=== PATIENT | male | born 1960 | race American Indian/Alaskan Native ===

== ENCOUNTER 2024-04-26 17:43 | Emergency (ER) | payer MEDICAID, SELFPAY ==
--- NOTE | 2024-04-26 18:08 | XR_ITS ---
Examination: PA lateral chest 2 views Technique: Upright PA lateral chest 2 views Exam date and time: April 26, 2024 1819 hrs. Comparison April 01, 2024 Indications: Onset difficulty breathing chest pain today. Findings: Mild CHF Moderate enlargement cardiac contour Prominent vascular congestion including central vascular engorgement. Early septal edema at the lung bases and perihilar regions Impression: Mild CHF
--- NOTE | 2024-04-26 18:08 | EKG_ITS ---
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) Order Number: [id number] Reading MD: Roberto Pathak ([facility]) Measurements Intervals [place] Rate: 87 P: 34 [place]: 227 QRS: 12 QRSD: 125 T: 87 QT: 423 QTc: 511 Interpretive Statements SINUS RHYTHM WITH FIRST DEGREE AV BLOCK WITH FREQUENT VENTRICULAR PREMATURE COMPLEXES LEFT ATRIAL ENLARGEMENT [-0.15mV P WAVE IN V1/V2] INDETERMINATE AXIS LATERAL MYOCARDIAL INFARCTION , OF INDETERMINATE AGE [40+ ms Q WAVE AND/OR ST/T ABNORMALITY IN I/aVL/V5/V6] Compared to ECG 03/23/2024 09:59:58 Ventricular premature complex(es) now present First degree AV block now present Myocardial infarct finding still present /store/S0/[id number]/ecg/[id number].pdf
--- NOTE | 2024-04-26 18:09 | PD.EDRME ---
Rapid Medical Screening Exam RME Arrival date/time: 04/26/24 17:43 64-year-old male with past medical history of CAD presents to the emergency department complaining of shortness of breath that started today. Chief Complaint: Urogenital-Male Time Seen by Provider: 04/26/24 18:02 Vital signs reviewed by provider: Yes
[2024-04-26 18:17] VITALS: BP 158/104; PULSE 81; RESP 19; TEMP 36.7; O2SAT 97; BMI 28.5
[2024-04-26 19:36] LABS: Collection Type, Urine Clean Catch
[2024-04-26 19:38] LABS: Basophils # (Auto) 0.1 Thou/mm3 (0.0-0.2); Basophils % (Auto) 1 % (0-2.5); Eosinophils # (Auto) 0.1 Thou/mm3 (0.0-0.5); Eosinophils % (Auto) 2 % (0-10); Hematocrit 38.7 % (41.0-53.0); Hemoglobin 12.7 g/dL (13.5-16.0); Immature Granulocytes % (Auto) 0 % (0-0); Immature Granulocytes Auto 0.02 Thou/mm3 (0.00-0.00); Lymphocytes # (Auto) 1.1 Thou/mm3 (1.0-4.8); Lymphocytes % (Auto) 16 % (10-50); Mean Corpuscular HGB Conc 32.8 g/dl (31.0-37.0); Mean Corpuscular Hemoglobin 28.9 pg (25.0-35.0); Mean Corpuscular Volume 88 fL (80-100); Monocytes % (Auto) 15 % (0-12); Neutrophils # (Auto) 4.7 Thou/mm3 (1.8-7.7); Neutrophils % (Auto) 66 % (37-80); Nucleated Red Blood Cell # 0.02 Thou/mm3 (0.00-0.00); Nucleated Red Blood Cell % 0 /100 WBC (0); Platelet Count 145 Thou/mm3 (140-440); RDW Standard Deviation 56.7 fL (35.1-43.9)
[2024-04-26 19:42] LABS: Bilirubin,Urine Negative (Negative); Blood,Urine Negative (Negative); Clarity,Urine Clear (Clear/Hazy); Color,Urine Yellow (Lt Yel-Yel); Culture Indicated,Urine Not Indicated; Glucose, Urine Negative (Negative); Ketones,Urine Negative (Negative); Leukocyte Esterase,Urine Positive (Negative); Nitrite,Urine Negative (Negative); PH,Urine 5.5 (5.0-7.0); Protein,Urine 1+ (Neg - Trace); RBC,Urine 2 /hpf (0-3); Specific Gravity,Urine 1.028 (1.001-1.035); Squamous Epithelial Cell,Urine 1 /hpf (0-5); WBC,Urine 3 /hpf (0-5)
[2024-04-26 19:50] LABS: Amphetamine/Methamp Scrn,U Positive (Negative); Barbiturate Screen,Urine Negative (Negative); Benzodiazepines Screen,Urine Negative (Negative); Benzoylecgonine Screen, Ur Negative (Negative); Fentanyl Screen,Urine Negative (Negative); Opiate Screen,Urine Negative (Negative); THC Screen,Urine Negative (Negative)
[2024-04-26 19:57] LABS: INR 1.4 (0.9-1.3); Partial Thromboplastin Time 28.5 Seconds (22.0-36.0); Prothrombin Time 14.9 Seconds (9.0-12.2)
[2024-04-26 20:00] LABS: B-Type Natriuretic Peptide 2420 pg/mL (0-100)
[2024-04-26 20:03] LABS: Alanine Aminotransferase 41 U/L (10-49); Albumin, Serum 3.8 gm/dL (3.4-4.8); Albumin/Globulin Ratio 1.2 (1.2-2.2); Alkaline Phosphatase 144 U/L (46-116); Anion Gap 10 (7-16); Aspartate Amino Transferase 57 U/L (0-34); BUN/Creatinine Ratio 18 Ratio (12-20); Bilirubin,Total 1.7 mg/dL (0.3-1.2); Blood Urea Nitrogen 28 mg/dL (9-23); Calcium 8.8 mg/dL (8.3-10.6); Carbon Dioxide 19.3 mMol/L (20.0-31.0); Chloride 110 mMol/L (98-107); Creatinine (Component) 1.6 mg/dL (0.6-1.3); Estimated Creatinine Clearance 48.6 mL/min (>60); Globulin 3.2 gm/dL (2.3-3.5); Glucose 106 mg/dL (74-106); Osmolality,Calculated 283 (275-295); Potassium 3.9 mMol/L (3.4-5.1); Sodium 139 mMol/L (136-145); eGFR 48 See Note
[2024-04-26 20:06] LABS: Troponin I 0.364 ng/mL (0.0-0.045)
[2024-04-26 20:14] LABS: LDH (Lactate Dehydrogenase) 430 U/L (120-246)
[2024-04-26 20:58] VITALS: BP 147/85; PULSE 62; RESP 18; TEMP 36.8; O2SAT 98
--- NOTE | 2024-04-26 22:45 | EDNOTE_ITS ---
ED General RME/HPI General Chief complaint: Urogenital-Male Stated complaint: I GOT KIDNEY STONES, HERNIA, AND HEART PROBLEMS Time Seen by Provider: 04/26/24 18:02 Arrival date/time: 04/26/24 17:43 RME / HPI RME / HPI narrative: 04/26/24 17:43 64-year-old male with past medical history of CAD presents to the emergency department complaining of shortness of breath that started today. ----- Dr. Zaman?s Main ED Evaluation: 64yo male with pmhx CAD, CHF presents to the ED for a chief complaint of shortness of breath. Patient states he has a heart tumor and is bothering me , reporting he's been feeling short of breath all day today. He states he has not been taking his Lasix for the last 2 days. Patient is homeless. Admits to using methamphetamines. Denies any chest pain, fever, chills or any other associated symptoms. No known allergies. Related Data Home Medications ?Medication ?Instructions ?Recorded ?Confirmed loratadine 10 mg tablet 10 mg PO BID 09/26/23 03/03/24 Previous Rx's ?Medication ?Instructions ?Recorded apixaban 5 mg tablet (Eliquis) 5 mg PO BID #30 tabs 03/03/24 aspirin 81 mg tablet,delayed 81 mg PO QDAY #30 tabs 03/03/24 release atorvastatin 40 mg tablet 40 mg PO QPM #30 tabs 03/03/24 cephalexin 250 mg capsule 500 mg (2 x 250 mg) PO QID #28 caps 03/03/24 doxycycline hyclate 100 mg tablet 100 mg PO BID #60 tabs 03/03/24 furosemide 40 mg tablet 40 mg PO TID 30 days #90 tabs 03/03/24 apixaban 5 mg tablet (Eliquis) 5 mg PO BID #60 tabs 04/01/24 furosemide 40 mg tablet (Lasix) 40 mg PO QDAY #30 tabs 04/01/24 sacubitril 24 mg-valsartan 26 mg 1 tab PO BID #60 tabs 04/01/24 tablet Allergies Allergy/AdvReac Type Severity Reaction Status Date / Time No Known Allergies Allergy Verified 04/26/24 17:49 Review of Systems Review of Systems Systems Reviewed: All systems reviewed, normal except as documented Narrative Review of Systems: Gen: No fever, no chills, no weight loss EYES: No discharge, no visual changes, no pain HEENT: No ear pain, no congestion, no sore throat PULM: + shortness of breath, no cough, no congestion CV: No chest pain, no dyspnea on exertion, no palpitations GI: No nausea, no vomiting, no diarrhea, no pain, no constipation : No frequency, no urgency, no dysuria Musc/skel: No joint pain, no back pain Skin: No rash. Warm and dry. Psyc: No hallucinations, no depression Heme/Lymph: No easy bleeding or bruising tendencies Neuro: No weakness, no headache ED Exam Narrative Physical exam: GENERAL APPEARANCE: AxOx4, generally well-appearing, no acute distress. HEENT: NC, AT. MMM. EOMI, clear conjunctiva, oropharynx clear. NECK: Supple without lymphadenopathy. No stiffness or restricted ROM. HEART: Normal rate and regular rhythm, normal S1/S1, no m/r/g LUNGS: CTAB, moving air well. No crackles or wheezes are heard. ABDOMEN: Soft, nontender, nondistended with good bowel sounds heard. BACK: No midline C/T/L spine pain or deformity, No CVAT, no obvious deformity. EXTREMITIES: Without cyanosis, clubbing or edema. MUSCULOSKELETAL: FROM of all major joints, no chest tenderness NEUROLOGICAL: Grossly nonfocal. Alert and oriented, moving all 4 extremities. CN not formally tested but appear grossly intact. Observed to ambulate with normal gait. Skin: Warm and dry without any rash. Course Course Course Narrative: CXR is ordered for determining the etiology of chest pain. Quality Measures none Orders Category Date Time Status EKG (ED ONLY) *Do not use* NOW Care 04/26/24 18:08 Completed EKG (ED Only) Stat Exams 04/26/24 18:08 Draft XR chest 2V Stat Exams 04/26/24 18:08 Completed B-Type Natriuretic Peptide Stat Lab 04/26/24 18:53 Completed CBC Stat Lab 04/26/24 18:53 Completed Comprehensive Metabolic Panel Stat Lab 04/26/24 18:53 Completed Drug Screen,Urine Stat Lab 04/26/24 19:31 Completed LDH (Lactate Dehydrogenase) Stat Lab 04/26/24 18:53 Completed Magnesium Stat Lab 04/26/24 18:53 Completed Partial Thromboplastin Time Stat Lab 04/26/24 18:53 Completed Prothrombin Time with INR Stat Lab 04/26/24 18:53 Completed Troponin I Stat Lab 04/26/24 18:53 Completed Urinalysis, C/S if Indicated Stat Lab 04/26/24 19:31 Completed Furosemide [Lasix] Med 04/26/24 22:46 Discontinued 40 mg PO X1 ONE Vital Signs Vital signs: Vital Signs Temperature 98.0 F 04/26/24 18:17 Pulse Rate 81 04/26/24 18:17 Respiratory Rate 19 04/26/24 18:17 Blood Pressure 158/104 H 04/26/24 18:17 Pulse Oximetry (%) 97 04/26/24 18:17 Oxygen Delivery Method Room Air 04/26/24 18:17 [facility] Patient data External records reviewed:: [facility] previous records (Per chart review, patient was seen here 04/01/24 for CHF.) Clinical information provided by:: patient Social determinants that could affect healthcare access:: substance use (uses methamphetamines) Patient has the following chronic illnesses:: EF of 15%, acute on chronic CHF, noncompliant with his Lasix, hypertension How is presenting disease/condition affected by chronic disease/condition?: e xacerbated by Evaluation data The following diagnostics were reviewed and interpreted by me:: lab results, radiology exam(s) and EKG tracing(s) Lab and/or radiology exams considered but not ordered:: none Interpretation Summary: [place] [facility] Report Signed Patient: NELDA LEON. Record#: [id number] Birthdate: 1960 Age/Sex: 64 / M Location: [facility] Attending Dr: Ordering Physician: Roberto Zaman (FNP) Date of Service: 04/26/24 Procedure(s): XR chest 2V Accession Number(s): [id number] cc: Aneesh Acuna MD; Roberto Zaman (FNP)~ Examination: PA lateral chest 2 views Technique: Upright PA lateral chest 2 views Exam date and time: April 26, 2024 1819 hrs. Comparison April 01, 2024 Indications: Onset difficulty breathing chest pain today. Findings: Mild CHF Moderate enlargement cardiac contour Prominent vascular congestion including central vascular engorgement. Early septal edema at the lung bases and perihilar regions Impression: Mild CHF Dictated By: Aneesh Acuna MD Signed By: <Electronically signed by Aneesh Acuna MD in OV> 04/26/241912 EKG done at 1816, NSR, rate of 87, normal intervals, normal axis, nonspecific ST changes, frequent PVCs, no STEMI, unchanged from previous EKG done on 04/01/24 Medications Medications considered but not ordered:: none Medication administrations:: Medication Administration History Discontinued Medications Furosemide (Furosemide 40 Mg Tablet) 40 mg PO X1 ONE Stop: 04/26/24 22:47 see above Consultations Consultation(s) initiated? (list below): No Diagnosis Differential Diagnosis ED Complaint MDM: CHF exacerbation, pneumonia, pleural effusions, dehydration Most likely diagnosis given after review of the tests above:: see below Admission Indicated Admission indicated?: not indicated Explain why admission is indicated or not indicated:: Patient is stable for outpatient management. Admission Request Was there a request for admission?: No Disposition Plan Disposition Plan: Discharge Discharge Attestation Discharge Attestation: The patient and all family members were given an opportunity to ask questions and understood the discharge instructions. Discharge instructions specifically effects, indications for sooner follow up or return to the emergency department, and the expected course of current diagnosis. Patient condition: Stable Medical Decision Making MDM Narrative MDM Narrative: Scribe Attestation: 04/26/24 - Angela Parker, scribing for and in the presence of Dr. Zaman. Differential Diagnosis Differential Diagnosis: CHF exacerbation, pneumonia, pleural effusions, dehydration Lab Data 04/26/24 18:53 04/26/24 18:53 Labs: Lab Results 04/26/24 04/26/24 Range/Units 18:53 19:31 WBC 7.0 (3.8-10.6) Thou/mm3 RBC 4.40 L (4.50-5.90) Miln/mm3 Hgb 12.7 L (13.5-16.0) g/dL Hct 38.7 L (41.0-53.0) % MCV 88 (80-100) fL MCH 28.9 (25.0-35.0) pg MCHC 32.8 (31.0-37.0) g/dl RDW Std Deviation 56.7 H (35.1-43.9) fL Plt Count 145 (140-440) Thou/mm3 Neut % (Auto) 66 (37-80) % Lymph % (Auto) 16 (10-50) % [place] % (Auto) 15 H (0-12) % Eos % (Auto) 2 (0-10) % Baso % (Auto) 1 (0-2.5) % Neut # (Auto) 4.7 (1.8-7.7) Thou/mm3 Lymph # (Auto) 1.1 (1.0-4.8) Thou/mm3 [place] # (Auto) 1.0 H (0.0-0.8) Thou/mm3 Eos # (Auto) 0.1 (0.0-0.5) Thou/mm3 Baso # (Auto) 0.1 (0.0-0.2) Thou/mm3 Immature Gran # (Auto) 0.02 H (0.00-0.00) Thou/mm3 Absolute Nucleated RBC 0.02 H (0.00-0.00) Thou/mm3 Immature Gran % 0 (0-0) % Nucleated RBC % 0 (0) /100 WBC PT 14.9 H (9.0-12.2) Seconds INR 1.4 H (0.9-1.3) APTT 28.5 (22.0-36.0) Seconds Sodium 139 (136-145) mMol/L Potassium 3.9 (3.4-5.1) mMol/L Chloride 110 H (98-107) mMol/L Carbon Dioxide 19.3 L (20.0-31.0) mMol/L Anion Gap 10 (7-16) BUN 28 H (9-23) mg/dL Creatinine 1.6 H (0.6-1.3) mg/dL Estim Creat Clear Calc 48.6 L (>60) mL/min eGFR 48 L (60 - ) See Note BUN/Creatinine Ratio 18 (12-20) Ratio Glucose 106 (74-106) mg/dL Calculated Osmolality 283 (275-295) Calcium 8.8 (8.3-10.6) mg/dL Corrected Calcium 9.0 (8.5-10.1) mg/dL Magnesium 2.0 (1.6-2.6) mg/dL Total Bilirubin 1.7 H (0.3-1.2) mg/dL AST 57 H (0-34) U/L ALT 41 (10-49) U/L Alkaline Phosphatase 144 H (46-116) U/L Lactate Dehydrogenase 430 H (120-246) U/L Troponin I 0.364 H* (0.0-0.045) ng/mL B-Natriuretic Peptide 2420 H* (0-100) pg/mL Total Protein 7.0 (5.7-8.2) gm/dL Albumin 3.8 (3.4-4.8) gm/dL Globulin 3.2 (2.3-3.5) gm/dL Albumin/Globulin Ratio 1.2 (1.2-2.2) Ur Collection Type Clean Catch Urine Color Yellow (Lt Yel-Yel) Urine Clarity Clear (Clear/Hazy) Urine pH 5.5 (5.0-7.0) Ur Specific [place] 1.028 (1.001-1.035) Urine Protein 1+ A (Neg - Trace) Urine Glucose (UA) Negative (Negative) Urine Ketones Negative (Negative) Urine Blood Negative (Negative) Urine Nitrite Negative (Negative) Urine Bilirubin Negative (Negative) Urine Urobilinogen (Auto) 3.0 (0.0-1.0) mg/dL Ur Leukocyte Esterase Positive (Negative) Urine RBC 2 (0-3) /hpf Urine WBC 3 (0-5) /hpf Ur Squamous Epith Cells 1 (0-5) /hpf Urine Bacteria None (None) Ur Culture Indicated? Not Indicated Urine Opiates Screen Negative (Negative) Urine Fentanyl Screen Negative (Negative) Ur Barbiturates Screen Negative (Negative) U Amphetamin/Meth Scrn Positive A (Negative) U Benzodiazepines Scrn Negative (Negative) U Cocaine Metab Screen Negative (Negative) U Marijuana (THC) Screen Negative (Negative) Discharge Plan Plan Patient Disposition: HOME (Self Care) Prescriptions/Referrals Prescriptions/Med Rec: No Action cephalexin 250 mg capsule 500 mg PO QID Qty: 28 0RF furosemide 40 mg tablet 40 mg PO TID 30 Days Qty: 90 1RF Rx Instructions: The dose has been changed to three times daily, please refill doxycycline hyclate 100 mg tablet 100 mg PO BID Qty: 60 3RF Eliquis 5 mg tablet 5 mg PO BID Qty: 30 1RF aspirin 81 mg tablet,delayed release (DR/EC) 81 mg PO QDAY Qty: 30 0RF atorvastatin 40 mg tablet 40 mg PO QPM Qty: 30 0RF loratadine 10 mg tablet 10 mg PO BID Patient Comments: TAKE 1 TABLET BY MOUTH EVERY DAY FOR 30 DAYS furosemide [Lasix] 40 mg tablet 40 mg PO QDAY Qty: 30 0RF Eliquis 5 mg tablet 5 mg PO BID Qty: 60 0RF sacubitril-valsartan 24-26 mg tablet 1 tab PO BID Qty: 60 0RF Referrals: No Primary/Family,Physician [Primary Care Provider] - In 1 week Problem List Clinical Impression: Acute exacerbation of congestive heart failure, Methamphetamine abuse Patient/Caregiver Discharge Instructions Education Materials: ED Drug Abuse, ED Heart Disease Education Additional Instructions: Is important to take your Lasix on a daily basis. Stop taking methamphetamines, you can follow-up with your primary care doctor and or [facility] if you feel ready for drug and/or alcohol rehabilitation programs. You can return to the emergency department if symptoms worsen or if you notice any new, concerning issues. Print Language: [place] Stand Alone Forms: Vera Award Info., Patient Portal Info Letter
[2024-04-26 22:51] VITALS: BP 131/98; PULSE 86
[2024-04-26] MEDS: Furosemide 40 MG TABLET PO (22:51)
[2024-04-26 23:11] VITALS: BP 136/90; PULSE 87; RESP 16; TEMP 36.8; O2SAT 96
== END 2024-04-26 23:08 | disposition home or self-care (01) ==
PROVIDERS: Emergency Provider Emergency Medicine
DX: I11.0 Hypertensive heart disease with heart failure (principal); I50.9 Heart failure, unspecified; F15.10 Other stimulant abuse, uncomplicated; I44.0 Atrioventricular block, first degree; I25.10 Atherosclerotic heart disease of native coronary artery without angina pectoris; Z91.148 Patient's other noncompliance with medication regimen for other reason; Z59.00 Homelessness unspecified
CPT/HCPCS: 36415; 71046; 80053; 80307; 81001; 83615; 83735; 83880; 84484; 85025; 85610; 85730; 93005; 99283; A9270

== ENCOUNTER 2024-04-29 06:24 | Inpatient (IN) | payer MEDICAID, SELFPAY ==
[2024-04-29] VITALS (34 sets, daily range): BP systolic 118–161; BP diastolic 79–129; PULSE 58–101; RESP 9–96; TEMP 36.4–36.7; O2SAT 95–100; BMI 25.1; BMI 24.3
--- NOTE | 2024-04-29 07:54 | XR_ITS ---
Examination: AP chest single view Technique one AP portable upright chest single view Exam date and time: April 29, 2024 0935 hours Comparison April 26, 2024 INDICATIONS: Onset shortness of breath today. FINDINGS: Moderate CHF Moderate enlargement cardiac contour Prominent vascular congestion with perihilar basilar edema Moderate osteopenia IMPRESSION: Moderate CHF
--- NOTE | 2024-04-29 07:54 | EKG_ITS ---
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
[2024-04-29] MEDS: ALBUTEROL RT 2.5 MG/0.5 ML NEBU HHN (08:46)
[2024-04-29] MEDS: SODIUM CHLORIDE RT SOL 0.9% 3 ML NEBU INH (08:46)
[2024-04-29 10:00] LABS: Basophils # (Auto) 0.1 Thou/mm3 (0.0-0.2); Basophils % (Auto) 1 % (0-2.5); Eosinophils % (Auto) 0 % (0-10); Hematocrit 44.8 % (41.0-53.0); Hemoglobin 14.7 g/dL (13.5-16.0); Immature Granulocytes % (Auto) 0 % (0-0); Immature Granulocytes Auto 0.01 Thou/mm3 (0.00-0.00); Lymphocytes # (Auto) 0.9 Thou/mm3 (1.0-4.8); Lymphocytes % (Auto) 13 % (10-50); Mean Corpuscular HGB Conc 32.8 g/dl (31.0-37.0); Mean Corpuscular Hemoglobin 28.8 pg (25.0-35.0); Mean Corpuscular Volume 88 fL (80-100); Monocytes # (Auto) 0.8 Thou/mm3 (0.0-0.8); Monocytes % (Auto) 12 % (0-12); Neutrophils # (Auto) 5.2 Thou/mm3 (1.8-7.7); Neutrophils % (Auto) 74 % (37-80); Nucleated Red Blood Cell # 0.03 Thou/mm3 (0.00-0.00); Nucleated Red Blood Cell % 0 /100 WBC (0); Platelet Count 145 Thou/mm3 (140-440); RDW Standard Deviation 56.9 fL (35.1-43.9); Red Blood Count 5.11 Miln/mm3 (4.50-5.90); White Blood Count 7.1 Thou/mm3 (3.8-10.6)
[2024-04-29 10:12] LABS: Amphetamine/Methamp Scrn,U Positive (Negative); Barbiturate Screen,Urine Negative (Negative); Benzodiazepines Screen,Urine Negative (Negative); Benzoylecgonine Screen, Ur Negative (Negative); Fentanyl Screen,Urine Negative (Negative); Opiate Screen,Urine Negative (Negative); THC Screen,Urine Negative (Negative)
[2024-04-29] MEDS: FUROSEMIDE INJ 10 MG/ML 4ML VIAL 80 MG IVP (10:20)
[2024-04-29] MEDS: NITROGLYCERIN OINT 2% 1 INCH PACKET TOP (10:21)
[2024-04-29 10:24] LABS: Alanine Aminotransferase 45 U/L (10-49); Albumin, Serum 4.4 gm/dL (3.4-4.8); Albumin/Globulin Ratio 1.3 (1.2-2.2); Alkaline Phosphatase 169 U/L (46-116); Anion Gap 10 (7-16); Aspartate Amino Transferase 72 U/L (0-34); BUN/Creatinine Ratio 19 Ratio (12-20); Bilirubin,Total 1.9 mg/dL (0.3-1.2); Blood Urea Nitrogen 30 mg/dL (9-23); Calcium 8.6 mg/dL (8.3-10.6); Calcium (Corrected) 8.6 mg/dL (8.5-10.1); Carbon Dioxide 21.7 mMol/L (20.0-31.0); Chloride 107 mMol/L (98-107); Creatinine (Component) 1.6 mg/dL (0.6-1.3); Estimated Creatinine Clearance 47.3 mL/min (>60); Globulin 3.4 gm/dL (2.3-3.5); Glucose 87 mg/dL (74-106); Osmolality,Calculated 282 (275-295); Potassium 4.8 mMol/L (3.4-5.1); Sodium 139 mMol/L (136-145); Total Protein 7.8 gm/dL (5.7-8.2); eGFR 48 See Note
[2024-04-29 10:26] LABS: Troponin I 1.921 ng/mL (0.0-0.045)
[2024-04-29 10:52] LABS: B-Type Natriuretic Peptide 2769 pg/mL (0-100)
[2024-04-29] MEDS: hydrALAZINE INJ 20 MG/ML VIAL 10 MG IV (11:07)
--- NOTE | 2024-04-29 11:19 | EDNOTE_ITS ---
ED General RME/HPI General Chief complaint: Flu Like Symptoms Stated complaint: COUGH Time Seen by Provider: 04/29/24 07:35 Arrival date/time: 04/29/24 06:24 RME / HPI RME / HPI narrative: Patient presented to the emergency department complaining of shortness of breath chest pain and cough for the last couple of days. In fact he was here few days ago and was DC home. There is no vomiting or diarrhea or dysuria. No fever. The patient had a history of CHF. And is taking Eliquis for his heart. Taking Lasix for CHF. He is also abusing methamphetamine. Related Data Home Medications ?Medication ?Instructions ?Recorded ?Confirmed loratadine 10 mg tablet 10 mg PO BID 09/26/23 03/03/24 Previous Rx's ?Medication ?Instructions ?Recorded apixaban 5 mg tablet (Eliquis) 5 mg PO BID #30 tabs 03/03/24 aspirin 81 mg tablet,delayed 81 mg PO QDAY #30 tabs 03/03/24 release atorvastatin 40 mg tablet 40 mg PO QPM #30 tabs 03/03/24 cephalexin 250 mg capsule 500 mg (2 x 250 mg) PO QID #28 caps 03/03/24 doxycycline hyclate 100 mg tablet 100 mg PO BID #60 tabs 03/03/24 furosemide 40 mg tablet 40 mg PO TID 30 days #90 tabs 03/03/24 apixaban 5 mg tablet (Eliquis) 5 mg PO BID #60 tabs 04/01/24 furosemide 40 mg tablet (Lasix) 40 mg PO QDAY #30 tabs 04/01/24 sacubitril 24 mg-valsartan 26 mg 1 tab PO BID #60 tabs 04/01/24 tablet Allergies Allergy/AdvReac Type Severity Reaction Status Date / Time No Known Allergies Allergy Verified 04/26/24 17:49 Review of Systems Review of Systems Narrative Review of Systems: REVIEW OF SYSTEM: GEN:? negative except mentioned in HPI HEENT:? negative except mentioned in HPI NECK:? negative except mentioned in HPI PULM:? negative except mentioned in HPI CARD:? negative except mentioned in HPI GI:? negative except mentioned in HPI MUSCULO/SKET: negative except mentioned in HPI SKIN:? negative except mentioned in HPI NEURO:? negative except mentioned in HPI PSYCH:? negative except mentioned in HPI Past Medical History Past Medical History NEUROLOGIC: Positive Cerebrovascular Accident; Negative Neurological Disorders or Seizures CARDIAC: Positive Congestive Heart Failure and Hypertension; Negative Cardiac Disorders, Atrial Fibrillation, Angina, Atherosclerotic Heart Disease, Aneurysm or Cellulitis RESPIRATORY: Positive Asthma; Negative Chronic Obstructive Pulmonary Disease (COPD) GASTROINTESTINAL: Positive Gastrointestinal Disorders, Hepatitis and Ulcer GENITOURINARY: Positive Inguinal Hernia; Negative Renal Disease MUSCULOSKELETAL: Positive Musculoskeletal Disorders, Arthritis and Gout ENDOCRINE: Negative Diabetes Mellitus Type 1 or Diabetes Mellitus Type 2 HEMATOLOGIC: Positive Anemia; Negative Sickle Cell Disease PSYCHO/SOCIAL: Positive Recreational Drug Use and Anxiety OTHER HISTORY: Negative Blood Transfusions, Blood Transfusion Reaction, Anesthesia Reactions, Clostridium Difficile or Cancer Family History FAMILY HISTORY: Positive Family Psychiatric Problems, Family Cardiac Disorders and Family Cancer; Negative Family Respiratory Disorders or Family Gastrointestinal Problems Surgical History SURGICAL: Positive Abdominal Surgery; Negative Cardiac Surgery, Pacemaker, Ear Surgery or Joint Replacement Social History SMOKING STATUS: Never smoker SUBSTANCE USE: marijuana and methamphetamine ED Exam Narrative Physical exam: Aaox4. No acute distress O2 saturation is normal Heent:? perra. Eomi. No icteric. Neck: full rom.? No mass.? No jvd.? No lymphadenopathy Lungs: Rhonchi bilaterally with minimal wheezing, full, equal Heart:? s1s2.? Rrr.? No murmur, gallop or rub. Abd: soft, nondistended, nontender, no mass, no rebound or guarding, no flank tender.? No incarcerated? hernia Ext:? full rom.? No deformity.? Normal csm. Positive for legs edema Neuro:?? intact cn2 to 12.? No facial droop.? No slurred speech.? No focal deficit.? Moves all 4ext Skin:? no rash.? No cellulitis.? No lesion.? No laceration Psychiatrical: no suicidal.? No homicidal.? No delusion.? No hallucinating Course Quality Measures none Orders Category Date Time Status Bedside COVID-19 Antigen Test NOW Care 04/29/24 08:24 Active [employer]in[employer] Q4H START 00 Care 04/29/24 07:54 Active EKG (ED ONLY) *Do not use* NOW Care 04/29/24 07:55 Completed Ragland to [place] Routine Care 04/29/24 09:45 Ordered EKG (ED Only) Stat Exams 04/29/24 07:54 Draft XR chest 1V portable Stat Exams 04/29/24 07:54 Completed BNP [B-Type Natriuretic Peptide] Stat Lab 04/29/24 09:32 Completed CBC Stat Lab 04/29/24 09:32 Completed CMP [Comprehensive Metabolic Panel] Stat Lab 04/29/24 09:32 Completed Drug Screen,Urine Stat Lab 04/29/24 09:32 Completed Troponin I Stat Lab 04/29/24 09:32 Completed ALBUTEROL RT 0.5ml [Proventil Rt 0.5ml] Med 04/29/24 08:02 Discontinued 2.5 mg HHN X1 ONE Furosemide Inj [Lasix Inj] Med 04/29/24 08:02 Discontinued 80 mg IVP X1 ONE Nitroglycerin Oint 2% [Nitro-paste Oint 2%] Med 04/29/24 07:54 Discontinued 1 inch TOP X1 ONE Sodium Chloride Rt Lacie 0.9% [NS Rt Lacie 0.9%] Med 04/29/24 08:02 Active 3 ml INH PRN PRN hydrALAZINE INJ [Apresoline Inj] Med 04/29/24 10:59 Discontinued 10 mg IV X1 ONE Vital Signs Vital signs: Vital Signs Temperature 97.6 F 04/29/24 07:26 Pulse Rate 95 04/29/24 07:26 Respiratory Rate 20 04/29/24 07:26 Blood Pressure 161/129 H 04/29/24 07:26 Pulse Oximetry (%) 97 04/29/24 07:26 Oxygen Delivery Method Nasal Cannula 04/29/24 07:26 Oxygen Flow Rate 2 04/29/24 07:26 [facility] Patient data External records reviewed:: [facility] previous records Clinical information provided by:: patient Social determinants that could affect healthcare access:: none Patient has the following chronic illnesses:: Congestive heart failure. Cardiomyopathy. How is presenting disease/condition affected by chronic disease/condition?: e xacerbated by Evaluation data The following diagnostics were reviewed and interpreted by me:: lab results, radiology exam(s) and EKG tracing(s) Lab and/or radiology exams considered but not ordered:: None Interpretation Summary: See [facility] Medications Medications considered but not ordered:: None Medication administrations:: Medication Administration History Sodium Chloride (Sodium Chloride Rt Lacie 0.9% 3 Ml Nebu) 3 ml INH PRN PRN PRN Reason: SOLN Stop: 05/29/24 08:01 Last Admin: 04/29/24 08:46 Dose: 3 ml Documented By: BJ Discontinued Medications Albuterol (Albuterol Rt 2.5 Mg/0.5 Ml Nebu) 2.5 mg HHN X1 ONE Stop: 04/29/24 08:03 Last Admin: 04/29/24 08:46 Dose: 2.5 mg Documented By: BJ Furosemide (Furosemide Inj 10 Mg/Ml 4ml Vial) 80 mg IVP X1 ONE Stop: 04/29/24 08:03 Last Admin: 04/29/24 10:20 Dose: 80 mg Documented By: AM Hydralazine HCl (Hydralazine Inj 20 Mg/Ml Vial) 10 mg IV X1 ONE Stop: 04/29/24 11:00 Last Admin: 04/29/24 11:07 Dose: 10 mg Documented By: AM Nitroglycerin (Nitroglycerin Oint 2% 1 Inch Packet) 1 inch TOP X1 ONE Stop: 04/29/24 07:55 Last Admin: 04/29/24 10:21 Dose: 1 inch Documented By: AM See above Consultations Consultation(s) initiated? (list below): No Diagnosis Differential Diagnosis ED Complaint MDM: Congestive heart failure. Hypertensive crisis. Hypertensive urgency. Most likely diagnosis given after review of the tests above:: Congestive heart failure Hypertensive urgency Chronic kidney disease Elevated troponin Admission Indicated Admission indicated?: indicated Explain why admission is indicated or not indicated:: Congestive heart failure. Hypertensive urgency elevated troponin Admission Request Was there a request for admission?: Yes Admission Attestation Admission request attestation: Discussed case with [] from Hospitalist service regarding admission. Discussed patients ED course, exam findings, labs, and radiology results. The Hospitalist [agrees,declines] to accept the patient for admission. Disposition Plan Disposition Plan: Admit Medical Decision Making MDM Narrative MDM Narrative: CBC unremarkable. BUN is 30 creatinine is 1.6 consistent with chronic kidney disease. BNP is 2800. Troponin is 1.9. He did have a history of chronic elevated troponin but this is a little bit high. Talk screen is positive for methamphetamine. Twelve-lead EKG that was done at 8:16 AM and interpreted by me: Normal sinus rhythm. Heart rate of 85. Normal axis. No ST elevation or depression. No PVC. No STEMI. First-degree AV block. Old Q waves are noted in leads II, III, aVF. Portable chest x-ray reviewed by and interpreted by me as follow: Evidence of CHF. Heart is enlarged. Mediastinum normal. Normal ribs. No consolidation. In the emergency department the patient received medication including Nitropaste, hydralazine, albuterol and Lasix. The patient also complaining of difficulty urinating, for which Ragland catheter was inserted. And it showed no sign of urinary retention. 11:20 AM, I spoke to and discussed with Dr. Rojas, resident of Dr. Lyons, hospitalist on-call. He agreed to assess the patient for admission. Critical care time is approximately 35 minutes excluding any procedure. The high probability of sudden, clinically significant deterioration in the patient?s condition required the highest level of my preparedness to intervene urgently. The services I provided to this patient were to treat and/or prevent clinically significant deterioration. Services included the following: chart data review, reviewing nursing notes and/or old charts, documentation time, financial planning consultant collaboration regarding findings and treatment options, medication orders and management, direct patient care, vital sign assessments and ordering, interpreting and reviewing diagnostic studies and lab tests. Aggregate critical care time includes only time during which I was engaged in work directly related to the patient?s care, as described above, whether at bedside or elsewhere in the Emergency Department. It did not include time spent performing other reported procedures or the services of residents, students, nurses or physician assistants. Differential Diagnosis Differential Diagnosis: Congestive heart failure. Hypertensive crisis. Hypertensive urgency. Lab Data 04/29/24 09:32 04/29/24 09:32 Labs: Lab Results 04/29/24 Range/Units 09:32 WBC 7.1 (3.8-10.6) Thou/mm3 RBC 5.11 (4.50-5.90) Miln/mm3 Hgb 14.7 D (13.5-16.0) g/dL Hct 44.8 (41.0-53.0) % MCV 88 (80-100) fL MCH 28.8 (25.0-35.0) pg MCHC 32.8 (31.0-37.0) g/dl RDW Std Deviation 56.9 H (35.1-43.9) fL Plt Count 145 (140-440) Thou/mm3 Neut % (Auto) 74 (37-80) % Lymph % (Auto) 13 (10-50) % Andrew % (Auto) 12 (0-12) % Eos % (Auto) 0 (0-10) % Baso % (Auto) 1 (0-2.5) % Neut # (Auto) 5.2 (1.8-7.7) Thou/mm3 Lymph # (Auto) 0.9 L (1.0-4.8) Thou/mm3 Andrew # (Auto) 0.8 (0.0-0.8) Thou/mm3 Eos # (Auto) 0.0 (0.0-0.5) Thou/mm3 Baso # (Auto) 0.1 (0.0-0.2) Thou/mm3 Immature Gran # (Auto) 0.01 H (0.00-0.00) Thou/mm3 Absolute Nucleated RBC 0.03 H (0.00-0.00) Thou/mm3 Immature Gran % 0 (0-0) % Nucleated RBC % 0 (0) /100 WBC Sodium 139 (136-145) mMol/L Potassium 4.8 D (3.4-5.1) mMol/L Chloride 107 (98-107) mMol/L Carbon Dioxide 21.7 (20.0-31.0) mMol/L Anion Gap 10 (7-16) BUN 30 H (9-23) mg/dL Creatinine 1.6 H (0.6-1.3) mg/dL Estim Creat Clear Calc 47.3 L (>60) mL/min eGFR 48 L (60 - ) See Note BUN/Creatinine Ratio 19 (12-20) Ratio Glucose 87 (74-106) mg/dL Calculated Osmolality 282 (275-295) Calcium 8.6 (8.3-10.6) mg/dL Corrected Calcium 8.6 (8.5-10.1) mg/dL Total Bilirubin 1.9 H (0.3-1.2) mg/dL AST 72 H (0-34) U/L ALT 45 (10-49) U/L Alkaline Phosphatase 169 H D (46-116) U/L Troponin I 1.921 H* (0.0-0.045) ng/mL B-Natriuretic Peptide 2769 H* (0-100) pg/mL Total Protein 7.8 (5.7-8.2) gm/dL Albumin 4.4 D (3.4-4.8) gm/dL Globulin 3.4 (2.3-3.5) gm/dL Albumin/Globulin Ratio 1.3 (1.2-2.2) Urine Opiates Screen Negative (Negative) Urine Fentanyl Screen Negative (Negative) Ur Barbiturates Screen Negative (Negative) U Amphetamin/Meth Scrn Positive A (Negative) U Benzodiazepines Scrn Negative (Negative) U Cocaine Metab Screen Negative (Negative) U Marijuana (THC) Screen Negative (Negative) Discharge Plan Plan Patient Disposition: Admit Acute Care w/in Hospital Disposition Comment: Stable for admit Prescriptions/Referrals Prescriptions/Med Rec: No Action cephalexin 250 mg capsule 500 mg PO QID Qty: 28 0RF furosemide 40 mg tablet 40 mg PO TID 30 Days Qty: 90 1RF Rx Instructions: The dose has been changed to three times daily, please refill doxycycline hyclate 100 mg tablet 100 mg PO BID Qty: 60 3RF Eliquis 5 mg tablet 5 mg PO BID Qty: 30 1RF aspirin 81 mg tablet,delayed release (DR/EC) 81 mg PO QDAY Qty: 30 0RF atorvastatin 40 mg tablet 40 mg PO QPM Qty: 30 0RF loratadine 10 mg tablet 10 mg PO BID Patient Comments: TAKE 1 TABLET BY MOUTH EVERY DAY FOR 30 DAYS furosemide [Lasix] 40 mg tablet 40 mg PO QDAY Qty: 30 0RF Eliquis 5 mg tablet 5 mg PO BID Qty: 60 0RF sacubitril-valsartan 24-26 mg tablet 1 tab PO BID Qty: 60 0RF Referrals: No Primary/Family,Physician [Primary Care Provider] - In 1 week Problem List Clinical Impression: Acute exacerbation of CHF (congestive heart failure), Methamphetamine abuse, Hypertensive urgency Patient/Caregiver Discharge Instructions Print Language: Faroese Stand Alone Forms: Vera Award Info., Patient Portal Info Letter
--- NOTE | 2024-04-29 12:27 | ESHP_ITS ---
<Statement entered by Madalyn Byrne MD - 04/30/24 12:11> Senior Resident Attestation: I supervised/discussed management plan with resident physician Dr. Rojas, and was involved in the care of this patient. I personally saw and examined the patient and discussed the assessment and plan with the entire medicine team, including my attending. I agree with the assessment and plan as documented. Patient's care was discussed with attending physician, Dr. Eloy Byrne MD PGY-3 Documentation for date of: 04/29/24 HPI History of Present Illness Chief complaint: Shortness of breath. History of present illness: Mr. Correa is a 64-year-old male with past medical history of HFrEF (EF 20% 09/2023), HTN, HLD, methamphetamine and alcohol use, chronic left foot osteomyelitis, hepatitis C, noncompliant with medication and homelessness, who presents to the ED complaining of shortness of breath. Patient complains of progressive shortness of breath for the last couple of days, patient has history of multiple visits to emergency department for similar complaints, patient was admitted in January for CHF exacerbation previously, patient is noncompliant. Patient is extremely short of breath, unable to speak in full sentences, complains of orthopnea, denies PND. Patient reports current meth use, patient attributes to daily use of six-pack of beer, last drink was yesterday. Patient denies any chest pain, diarrhea, vomiting and headache. Patient urine tox screen in the ED was positive for methamphetamine and patient had elevated BNP of 2769. ED Course: ED Vitals: On presentation in ED BP 161/129, P95, RR 20, temp 97.6, O2 sat 97 patient on 2 L via nasal cannula ED Labs: ED labs significant for BUN 30, creatinine 1.6, GFR 48, total bilirubin 1.9, AST 72, alk phos 169, troponin 0.364, repeat troponin 1.9-1, BNP 2769, urine tox screen positive for methamphetamine ED Imaging:Chest x-ray in ED shows moderate CHF pattern ED Treatment: Patient was given DuoNeb, furosemide 80 mg, hydralazine 10 mg and nitroglycerin patch in the ED Review of Systems Review of Systems Narrative Review of Systems: ROS: -CONSTITUTIONAL: Denies weight loss, fever and chills. -HEENT: Denies changes in vision and hearing. -RESPIRATORY: Denies cough. Positive for shortness of breath. -CV: Denies palpitations and Chest Pain. -GI: Denies abdominal pain, nausea, vomiting,constipation and diarrhea. -: Denies dysuria and urinary frequency. -MSK: Denies myalgia and joint pain. -SKIN: Denies rash and pruritus. -NEUROLOGICAL: Denies headache and syncope. -PSYCHIATRIC: Denies recent changes in mood. Denies anxiety and depression. Past Medical History Past Medical History Comments PMH COMMENT: PMH: Positive for HFrEF (EF 20% 09/2023), HTN, HLD, methamphetamine and alcohol use, chronic left foot osteomyelitis, hepatitis C, noncompliant with medication and homelessness PSHx: Hernia surgery. Allergies:NKDFA Social history: -Alcohol Use: Reports daily alcohol use of sixpack beer, last drink yesterday -Illicit Drug Use:Heroin use for 30 years, quit 2002, Methamphetamine use daily. -Homeless Exam Vital Signs Temp Pulse Resp BP Pulse Ox O2 Del Method O2 Flow Rate 97.9 F 101 H 20 145/121 H 100 Nasal Cannula 2 04/29/24 10:25 04/29/24 11:07 04/29/24 10:49 04/29/24 11:07 04/29/24 10:49 04/29/24 10:49 04/29/24 10:49 Narrative Exam GENERAL APPEARANCE: Patient is AOx3, generally well-appearing male in mild distress. Saturating well on 2 L NC. HEENT: NC, AT. MMM. EOMI, clear conjunctiva, oropharynx clear. JVD NECK: Supple without lymphadenopathy. No stiffness or restricted ROM. HEART: Regular rate and regular rhythm, normal S1/S2, no m/r/g LUNGS: Bilateral crackles heard on auscultation, wheezing heard bilaterally ABDOMEN: Soft, nontender, nondistended with good bowel sounds heard. BACK: No CVAT, no obvious deformity. EXTREMITIES: 2+ pitting edema noticed on both lower extremities NEUROLOGICAL: Grossly nonfocal. Alert and oriented, moving all 4 extremities. CN not formally tested but appear grossly intact. Skin: Warm and dry without any rash. Results: Labs 04/30/24 05:03 04/30/24 05:03 Labs: Short CBC 04/29/24 Range/Units 09:32 WBC 7.1 (3.8-10.6) Thou/mm3 Hgb 14.7 D (13.5-16.0) g/dL Hct 44.8 (41.0-53.0) % Plt Count 145 (140-440) Thou/mm3 BMP 04/29/24 09:32 Sodium 139 Potassium 4.8 D Chloride 107 Carbon Dioxide 21.7 BUN 30 H Creatinine 1.6 H Glucose 87 Calcium 8.6 Cardiac Enzymes 04/29/24 Range/Units 09:32 Troponin I 1.921 H* (0.0-0.045) ng/mL Liver Function 04/29/24 Range/Units 09:32 Total Bilirubin 1.9 H (0.3-1.2) mg/dL AST 72 H (0-34) U/L ALT 45 (10-49) U/L Alkaline Phosphatase 169 H D (46-116) U/L Albumin 4.4 D (3.4-4.8) gm/dL Quality Measures Quality Measures none Medications Home Medications and Allergies Home Medications ?Medication ?Instructions ?Recorded ?Confirmed ?Type No Known Home Medications 04/30/24 04/30/24 History Allergies Allergy/AdvReac Type Severity Reaction Status Date / Time No Known Allergies Allergy Verified 04/26/24 17:49 Visit Medications Acetaminophen (Acetaminophen 325 Mg Tablet) 650 mg PO Q6H PRN PRN Reason: Pain and Fever >100.3 Stop: 05/29/24 11:53 Albuterol/Ipratropium (Albuterol/Ipratropium (Duoneb) Rt Lacie 3 Ml Nebu) 3 ml INH Q4HRRT JANETTE Stop: 05/29/24 14:59 Apixaban (Apixaban 2.5 Mg Tablet) 5 mg PO BID JANETTE Stop: 05/29/24 12:14 Aspirin (Aspirin Ec 81 Mg Tabec) 81 mg PO QDAY JANETTE Stop: 05/29/24 12:14 Atorvastatin Calcium (Atorvastatin Calcium 20 Mg Tablet) 40 mg PO HS JANETTE Stop: 05/29/24 20:59 Bumetanide (Bumetanide Inj 0.25 Mg/Ml Vial 4 Ml) 2 mg IVP BID JANETTE Stop: 05/29/24 20:59 Bumetanide (Bumetanide Inj 0.25 Mg/Ml Vial 4 Ml) 2 mg IVP X1 ONE Stop: 04/29/24 16:01 Folic Acid (Folic Acid 1 Mg Tablet) 1 mg PO BID JANETTE Stop: 05/04/24 12:29 Lorazepam (Lorazepam 0.5 Mg Tablet) 0.5 mg PO Q4HR PRN PRN Reason: CIWA Score 2-6 Stop: 05/04/24 12:21 Lorazepam (Lorazepam 0.5 Mg Tablet) 1 mg PO Q4HR PRN PRN Reason: CIWA SCORE 7-11 Stop: 05/04/24 12:21 Lorazepam (Lorazepam 0.5 Mg Tablet) 2 mg PO Q4HR PRN PRN Reason: CIWA SCORE 12-15 Stop: 05/04/24 12:21 Lorazepam (Lorazepam 2 Mg/Ml Vial) 1 mg IV X1 PRN PRN Reason: Breakthrough Agitation Ondansetron HCl (Ondansetron Inj 2 Mg/Ml Inj 2 Ml) 4 mg IV Q6H PRN; Protocol PRN Reason: NAUSEA OR VOMITING Stop: 05/29/24 11:53 Sennosides (Senna Tablet) 1 tab PO QDAY PRN; Protocol PRN Reason: constipation Stop: 05/29/24 11:53 Sodium Chloride (Sodium Chloride Rt Lacie 0.9% 3 Ml Nebu) 3 ml INH PRN PRN PRN Reason: SOLN Stop: 05/29/24 08:01 Last Admin: 04/29/24 08:46 Dose: 3 ml Thiamine HCl (Thiamine 100 Mg Tablet) 100 mg PO BID JANETTE Stop: 05/04/24 12:29 Discontinued Medications Albuterol (Albuterol Rt 2.5 Mg/0.5 Ml Nebu) 2.5 mg HHN X1 ONE Stop: 04/29/24 08:03 Last Admin: 04/29/24 08:46 Dose: 2.5 mg Furosemide (Furosemide Inj 10 Mg/Ml 4ml Vial) 80 mg IVP X1 ONE Stop: 04/29/24 08:03 Last Admin: 04/29/24 10:20 Dose: 80 mg Hydralazine HCl (Hydralazine Inj 20 Mg/Ml Vial) 10 mg IV X1 ONE Stop: 04/29/24 11:00 Last Admin: 04/29/24 11:07 Dose: 10 mg Nitroglycerin (Nitroglycerin Oint 2% 1 Inch Packet) 1 inch TOP X1 ONE Stop: 04/29/24 07:55 Last Admin: 04/29/24 10:21 Dose: 1 inch Assessment & Plan Plan Assessment & Plan: Patient is 63 years old male with past medical history of HFrEF (EF 20% 09/2023), HTN, HLD, methamphetamine and alcohol use, chronic left foot osteomyelitis, hepatitis C, noncompliant with medication, homelessness, who presents to the ED complaining of shortness of breath. 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 #History of hypertension. -Patient complains of shortness of breath, unable to speak in full sentences, complains of orthopnea, denies PND. -Patient is noncompliant with medications outpatient, has multiple visits to emergency department for similar complaints -Chest x-ray shows moderate CHF, patient has 2+ bilateral lower extremity edema, crackles heard bilaterally -Last echo was done in January 2024 shows ejection fraction 15 to 20%, severe global hypokinesis, dilated left ventricle, large thrombus near apex 1.5 and 1.8 cm, moderate right ventricular dilation, decreased right ventricular function, severe biatrial dilation -BNP 2769 on admission -Patient was given Lasix 80 mg in the emergency department -Wheezing appreciated bilaterally Plan: -Started on Bumex 2mg BID IV -Ordered ECHO -Fluid restriction 1500 cc -Strict I&O, daily weight check. -Cardiac Diet, fluid restriction 1500 cc -Avoid cardiotoxic medications -DuoNeb every 4 hours RESP THER -Desulphuring Operator Dr. Tsang consulted, appreciate recommendations -Monitor tele #NSTEMI type I versus type II. #History of hyperlipidemia. -On admission Troponin 0.364 -> 1.921 -EKG shows sinus rhythm -Old myocardial infarct present on previous EKG 07/10/22 -Denied any chest pain, arm numbness, dizziness. -Follow lipid panel, A1c and TSH in a.m. Plan: -Trend troponin every 6 hours -Aspirin and atorvastatin started -Desulphuring Operator Dr. Tsang consulted -Monitor tele #GEOVANY On CKD? -Creatinine 1.6 BUN 30, EGFR 48, on admission -K 2.9 in ED, replaced in ED Plan: -Renally dose medications -Avoid nephrotoxic agents -Monitor CMP #Alcohol use #Transaminitis Patient reports daily use of alcohol 6 pack beer for the last 3 years, last drink was yesterday. AST 72, T. bili 1.9, ALT 45, alk phos 169 Plan -CIWA protocol, Ativan as needed -Monitor CMP daily -Alcohol cessation advised #Substance use disorder. #Homelessness. #Methamphetamine Use #History of hepatitis C. Use methamphetamine and drinks alcohol daily. Plan -Obtain Urine tox Screen -Consider social sciences lecturer consult. #Chronic left foot osteomyelitis -Patient was diagnosed with left foot osteomyelitis in June 2022. -Denies any pain currently -Reported completing oral antibiotic treatment outpatient Health maintenance: Disposition: Telemetry Diet: Cardiac diet, fluid restriction 1500 cc GI prophylaxis: Not indicated DVT prophylaxis: SCDs, Eliquis Code: Full code Case discussed with Attending Dr. Lyons and Dr. Byrne PGY3. Leilani Rojas PGY1
[2024-04-29 12:55] LABS: Troponin I 1.532 ng/mL (0.0-0.045)
[2024-04-29] MEDS: APIXABAN 2.5 MG TABLET 5 MG PO ×2 (13:17→21:16)
[2024-04-29] MEDS: FOLIC ACID 1 MG TABLET PO ×2 (13:18→21:16)
[2024-04-29] MEDS: ASPIRIN EC 81 MG TABEC PO (13:18)
[2024-04-29] MEDS: THIAMINE 100 MG TABLET PO ×2 (13:18→21:16)
--- NOTE | 2024-04-29 13:43 | ESCONSULT_ITS ---
<Statement entered by Misael Tsang MD - 05/01/24 20:07> I personally reviewed the patient's history physical consultation examined the patient along with resident physician PGY 2 Dr. Collier patient has known history of nonischemic cardiomyopathy toxic methamphetamine related cardiomyopathy multiple hospitalization with cardiac thrombus noncompliant admitted to hospital acutely comes in heart failure continue IV diuretic therapy aggressively with negative fluid balance all the complaints are reviewed by me and the agree with the treatment plan recommendation as documented by Dr. Bowser PGY 2 HPI Data of Consult Consult date: 04/29/24 Requesting Physician: Pieter Lyons DO Admitting Provider: Pieter Lyons DO Attending Provider: Pieter Lyons DO Primary Care Provider: Physician No Primary/Family Consult Narrative Reason for consult: CHF exacerbation and LV thrombus History of present illness: This 64-year-old male with PMHx HFrEF (15-20%, EF Jan 2024), HTN, substance abuse (Meth), Chronic osteomyelitis of the L foot, hep C and medication non- compliance presented to the ED on 04/29/2024 with chief complaint of worsening shortness of breath, chest pain and cough from last couple of days. He denied any nausea or vomiting or diarrhea. No fever or chills. Patient did have a history of LV thrombus for which he was prescribed Eliquis however patient was not taking it. EKG showed normal sinus rhythm, heart rate 85, no ST elevation or depression seen. No PVCs. QTc 518. First-degree AV block it. Old Q waves noted in lead to 3 and aVF. Labs revealed elevated BUN and creatinine 1.6 consistent with CKD. BNP 2800. Troponin elevated at 1.9 down trended to 1.5. U tox positive for methamphetamines. Chest x-ray showed moderate CHF. Vitals showed elevated blood pressure 161/129, mildly tachycardic heart rate 95, respiratory rate 20 and afebrile. He was saturating at 97% on 2 L NC. Patient was given Lasix 80 mg x 1, nitroglycerin x 1, hydralazine 10 mg x 1 and Eliquis 5 mg x 1 in the ED. Cardiology is consulted for CHF exacerbation and LV thrombus. Patient was seen and examined at the bedside. He reported having worsening shortness of breath with mild chest pain and cough from last couple of days.He does have component of non compliance however has been seen by resident in [facility]. We recommended to continue Bumex 2 mg IV twice daily, Eliquis 5 mg 2 times a day, fluid restriction, strict GABRIELLE's and daily weight.Continue aspirin 81 mg once a day. Ordered repeat echocardiogram to evaluate EF and LV thrombus. Will likely Consider adding Entresto 1 tablet twice daily and metoprolol XL 25 mg once a day given history of heart failure once stable and well diuresed. Cardiology will follow the case closely. cc:: cc: Pieter Lyons DO Review of Systems Review of Systems Systems Reviewed: All systems reviewed, normal except as documented Past Medical History Past Medical History NEUROLOGIC: Positive Cerebrovascular Accident; Negative Neurological Disorders or Seizures CARDIAC: Positive Congestive Heart Failure and Hypertension; Negative Cardiac Disorders, Atrial Fibrillation, Angina, Atherosclerotic Heart Disease, Aneurysm or Cellulitis RESPIRATORY: Positive Asthma; Negative Chronic Obstructive Pulmonary Disease (COPD) GASTROINTESTINAL: Positive Gastrointestinal Disorders, Hepatitis and Ulcer GENITOURINARY: Positive Inguinal Hernia; Negative Renal Disease MUSCULOSKELETAL: Positive Musculoskeletal Disorders, Arthritis and Gout ENDOCRINE: Negative Diabetes Mellitus Type 1 or Diabetes Mellitus Type 2 HEMATOLOGIC: Positive Anemia; Negative Sickle Cell Disease PSYCHO/SOCIAL: Positive Recreational Drug Use and Anxiety OTHER HISTORY: Negative Blood Transfusions, Blood Transfusion Reaction, Anesthesia Reactions, Clostridium Difficile or Cancer Family History FAMILY HISTORY: Positive Family Psychiatric Problems, Family Cardiac Disorders and Family Cancer; Negative Family Respiratory Disorders or Family Gastrointestinal Problems Surgical History SURGICAL: Positive Abdominal Surgery; Negative Cardiac Surgery, Pacemaker, Ear Surgery or Joint Replacement Social History SMOKING STATUS: Never smoker SUBSTANCE USE: marijuana and methamphetamine Exam Vital Signs Temp Pulse Resp BP Pulse Ox O2 Del Method O2 Flow Rate 98.0 F 81 17 130/90 H 100 Nasal Cannula 2 04/29/24 12:56 04/29/24 12:56 04/29/24 12:56 04/29/24 12:56 04/29/24 12:56 04/29/24 12:56 04/29/24 12:56 Narrative Exam GENERAL APPEARANCE: Patient is AOx3, generally well-appearing male in mild distress. Saturating well on 2 L NC. HEENT: NC, AT. MMM. EOMI, clear conjunctiva, oropharynx clear. JVD NECK: Supple without lymphadenopathy. No stiffness or restricted ROM. HEART: Regular rate and regular rhythm, normal S1/S2, no m/r/g LUNGS: Bilateral crackles heard on auscultation ABDOMEN: Soft, nontender, nondistended with good bowel sounds heard. BACK: No CVAT, no obvious deformity. EXTREMITIES: 2+ pitting edema noticed with chronic venous stasis on both lower extremities NEUROLOGICAL: Grossly nonfocal. Alert and oriented, moving all 4 extremities. CN not formally tested but appear grossly intact. Skin: Warm and dry without any rash. Results Labs 04/29/24 09:32 04/29/24 09:32 Labs: Short CBC 04/29/24 Range/Units 09:32 WBC 7.1 (3.8-10.6) Thou/mm3 Hgb 14.7 D (13.5-16.0) g/dL Hct 44.8 (41.0-53.0) % Plt Count 145 (140-440) Thou/mm3 BMP 04/29/24 09:32 Sodium 139 Potassium 4.8 D Chloride 107 Carbon Dioxide 21.7 BUN 30 H Creatinine 1.6 H Glucose 87 Calcium 8.6 Cardiac Enzymes 04/29/24 04/29/24 Range/Units 09:32 12:19 Troponin I 1.921 H* 1.532 H* D (0.0-0.045) ng/mL Liver Function 04/29/24 Range/Units 09:32 Total Bilirubin 1.9 H (0.3-1.2) mg/dL AST 72 H (0-34) U/L ALT 45 (10-49) U/L Alkaline Phosphatase 169 H D (46-116) U/L Albumin 4.4 D (3.4-4.8) gm/dL Quality Measures Quality Measures VTE prophylaxis (Eliquis 5 mg twice daily) Medications Home Medications and Allergies Home Medications ?Medication ?Instructions ?Recorded ?Confirmed ?Type loratadine 10 mg tablet 10 mg PO BID 09/26/23 03/03/24 History Allergies Allergy/AdvReac Type Severity Reaction Status Date / Time No Known Allergies Allergy Verified 04/26/24 17:49 Visit Medications Acetaminophen (Acetaminophen 325 Mg Tablet) 650 mg PO Q6H PRN PRN Reason: Pain and Fever >100.3 Stop: 05/29/24 11:53 Albuterol/Ipratropium (Albuterol/Ipratropium (Duoneb) Rt Lacie 3 Ml Nebu) 3 ml INH Q4HRRT JANETTE Stop: 05/29/24 14:59 Apixaban (Apixaban 2.5 Mg Tablet) 5 mg PO BID JANETTE Stop: 05/29/24 12:14 Last Admin: 04/29/24 13:17 Dose: 5 mg Aspirin (Aspirin Ec 81 Mg Tabec) 81 mg PO QDAY JANETTE Stop: 05/29/24 12:14 Last Admin: 04/29/24 13:18 Dose: 81 mg Atorvastatin Calcium (Atorvastatin Calcium 20 Mg Tablet) 40 mg PO HS JANETTE Stop: 05/29/24 20:59 Bumetanide (Bumetanide Inj 0.25 Mg/Ml Vial 4 Ml) 2 mg IVP BID JANETTE Stop: 05/29/24 20:59 Bumetanide (Bumetanide Inj 0.25 Mg/Ml Vial 4 Ml) 2 mg IVP X1 ONE Stop: 04/29/24 16:01 Folic Acid (Folic Acid 1 Mg Tablet) 1 mg PO BID JANETTE Stop: 05/04/24 12:29 Last Admin: 04/29/24 13:18 Dose: 1 mg Lorazepam (Lorazepam 0.5 Mg Tablet) 0.5 mg PO Q4HR PRN PRN Reason: CIWA Score 2-6 Stop: 05/04/24 12:21 Lorazepam (Lorazepam 0.5 Mg Tablet) 1 mg PO Q4HR PRN PRN Reason: CIWA SCORE 7-11 Stop: 05/04/24 12:21 Lorazepam (Lorazepam 0.5 Mg Tablet) 2 mg PO Q4HR PRN PRN Reason: CIWA SCORE 12-15 Stop: 05/04/24 12:21 Lorazepam (Lorazepam 2 Mg/Ml Vial) 1 mg IV X1 PRN PRN Reason: Breakthrough Agitation Ondansetron HCl (Ondansetron Inj 2 Mg/Ml Inj 2 Ml) 4 mg IV Q6H PRN; Protocol PRN Reason: NAUSEA OR VOMITING Stop: 05/29/24 11:53 Sennosides (Senna Tablet) 1 tab PO QDAY PRN; Protocol PRN Reason: constipation Stop: 05/29/24 11:53 Sodium Chloride (Sodium Chloride Rt Lacie 0.9% 3 Ml Nebu) 3 ml INH PRN PRN PRN Reason: SOLN Stop: 05/29/24 08:01 Last Admin: 04/29/24 08:46 Dose: 3 ml Thiamine HCl (Thiamine 100 Mg Tablet) 100 mg PO BID JANETTE Stop: 05/04/24 12:29 Last Admin: 04/29/24 13:18 Dose: 100 mg Discontinued Medications Albuterol (Albuterol Rt 2.5 Mg/0.5 Ml Nebu) 2.5 mg HHN X1 ONE Stop: 04/29/24 08:03 Last Admin: 04/29/24 08:46 Dose: 2.5 mg Furosemide (Furosemide Inj 10 Mg/Ml 4ml Vial) 80 mg IVP X1 ONE Stop: 04/29/24 08:03 Last Admin: 04/29/24 10:20 Dose: 80 mg Hydralazine HCl (Hydralazine Inj 20 Mg/Ml Vial) 10 mg IV X1 ONE Stop: 04/29/24 11:00 Last Admin: 04/29/24 11:07 Dose: 10 mg Nitroglycerin (Nitroglycerin Oint 2% 1 Inch Packet) 1 inch TOP X1 ONE Stop: 04/29/24 07:55 Last Admin: 04/29/24 10:21 Dose: 1 inch Assessment & Plan Plan This 64-year-old male with PMHx HFrEF (15-20%, EF Jan 2024), HTN, substance abuse (Meth), Chronic osteomyelitis of the L foot, hep C and medication non- compliance presented to the ED on 04/29/2024 with chief complaint of worsening shortness of breath, chest pain and cough from last couple of days. He denied any nausea or vomiting or diarrhea. No fever or chills. Patient did have a history of LV thrombus for which he was prescribed Eliquis however patient was not taking it. EKG showed normal sinus rhythm, heart rate 85, no ST elevation or depression seen. No PVCs. QTc 518. First-degree AV block it. Old Q waves noted in lead to 3 and aVF. Labs revealed elevated BUN and creatinine 1.6 consistent with CKD. BNP 2800. Troponin elevated at 1.9 down trended to 1.5. U tox positive for methamphetamines. Chest x-ray showed moderate CHF. Vitals showed elevated blood pressure 161/129, mildly tachycardic heart rate 95, respiratory rate 20 and afebrile. He was saturating at 97% on 2 L NC. Patient was given Lasix 80 mg x 1, nitroglycerin x 1, hydralazine 10 mg x 1 and Eliquis 5 mg x 1 in the ED. # Acute Hypoxic resp failure # Meth induced Toxic Cardiomyopahty # HFrEF, EF 15-20% per January 2024 # LV thrombus per echo on Eliquis # Hypertensive urgency # Methamphetamine abuse disorder ? Patient presented with worsening shortness of breath, chest pain and mild cough for last couple of days. He also has lower extremity swelling/edema. Prominent JVD noticed.Echocardiogram from January 2024 showed dilated LV. Severe systolic dysfunction. Severe global hypokinesis. Large thrombus near apex 1.5 x 1.8 cm. Moderate RV dilation. Severe biatrial dilation. Ascending aorta mildly dilated 3.6 cm. Mild to moderate MR. ?Patient was given Lasix 80 mg x 1, hydralazine 10 mg x 1. ?Patient was prescribed Lasix 40 mg once a day, Eliquis 5 mg twice a day and Entresto at home Plan: ? Started Bumex 2 mg IV twice daily for diuresis ? Monitor strict GABRIELLE's, fluid restriction 1500 cc daily, daily weight ? Will likely Consider starting Entresto 1 tablet twice daily and add metoprolol 25 XL once a day once stable and well diuresed ? Follow up on echo ? Monitor vitals closely ? Replete electrolytes as necessary ? Keep magnesium above 2 and potassium above 4 # NSTEMI type II likely supply demand ischemia ?Initial troponin I was elevated at 1.9 down trended to 1.5. ? EKG did not show new ST-T changes. Plan: ? Trend troponin I ? Monitor patient for signs symptoms of chest pain or shortness of breath ? Monitor vitals Other active problems: # CKD stage IIIa # Alcohol use disorder # History of chronic osteomyelitis left foot, # History of hep C and medication noncompliance Rest of the management as per primary care team. -- Thank you very much for consulting cardiology team. Continue aggressive diuresis with Bumex IV 2 mg 2 times a day, fluid restriction, strict GABRIELLE's and daily weights. Continue Eliquis 5 mg twice daily for LV thrombus and will likely follow-up on new echocardiogram. Cardiology will follow the case closely. Plan of care discussed with purse framer, Dr. Sharan Collier MD, PGY 2
--- NOTE | 2024-04-29 17:26 | PC.NURSE ---
1724 Patient soiled himself and was changed at this time. Linen was changed at this time and patient was provided with a pillow.
[2024-04-29] MEDS: BUMETANIDE INJ 0.25 MG/ML VIAL 4 ML 2 MG IVP (18:35)
[2024-04-29] MEDS: ALBUTEROL/IPRATROPIUM (Duoneb) RT SOL 3 ML NEBU INH ×2 (19:24→23:54)
[2024-04-29] MEDS: ATORVASTATIN CALCIUM 20 MG TABLET 40 MG PO (21:16)
--- NOTE | 2024-04-29 22:24 | PC.NURSE ---
REPORT GIVEN TO NICKOLAS CM. ALL QUESTIONS ASKED AND ANSWERED. PATIENT TRANSFERRED TO ROOM BY STAFF. NO DISTRESS NOTED AT TRANSFER.
[2024-04-30] VITALS (12 sets, daily range): BP systolic 101–137; BP diastolic 78–98; PULSE 78–135; RESP 16–97; TEMP 36.2–37.4; O2SAT 91–100
--- NOTE | 2024-04-30 01:24 | PC.NURSE ---
Received a phone call from [employer] regarding patient's heart rate being in the 140's. When asked if patient is having any chest pain, dizziness, or in any distress, patient replied no. Patient also stated that he does not feel his heart beating fast. call center consultant hospitalist was notified.
[2024-04-30] MEDS: ALBUTEROL/IPRATROPIUM (Duoneb) RT SOL 3 ML NEBU INH ×2 (02:37→06:51)
[2024-04-30 06:11] LABS: Basophils # (Auto) 0.1 Thou/mm3 (0.0-0.2); Basophils % (Auto) 1 % (0-2.5); Eosinophils # (Auto) 0.1 Thou/mm3 (0.0-0.5); Eosinophils % (Auto) 2 % (0-10); Hematocrit 37.5 % (41.0-53.0); Hemoglobin 12.6 g/dL (13.5-16.0); Immature Granulocytes % (Auto) 0 % (0-0); Immature Granulocytes Auto 0.03 Thou/mm3 (0.00-0.00); Lymphocytes # (Auto) 0.9 Thou/mm3 (1.0-4.8); Lymphocytes % (Auto) 10 % (10-50); Mean Corpuscular HGB Conc 33.6 g/dl (31.0-37.0); Mean Corpuscular Hemoglobin 28.6 pg (25.0-35.0); Mean Corpuscular Volume 85 fL (80-100); Monocytes % (Auto) 12 % (0-12); Neutrophils # (Auto) 6.3 Thou/mm3 (1.8-7.7); Neutrophils % (Auto) 75 % (37-80); Nucleated Red Blood Cell % 0 /100 WBC (0); Platelet Count 121 Thou/mm3 (140-440); RDW Standard Deviation 54.1 fL (35.1-43.9); White Blood Count 8.4 Thou/mm3 (3.8-10.6)
[2024-04-30 06:22] LABS: Glucose Estimated Average 114 mg/dL (80-131); Hemoglobin A1C 5.6 % Hgb (4.8-6.0)
[2024-04-30 06:26] LABS: INR 1.3 (0.9-1.3); Partial Thromboplastin Time 28.8 Seconds (22.0-36.0)
[2024-04-30 06:34] LABS: Alanine Aminotransferase 28 U/L (10-49); Albumin, Serum 3.5 gm/dL (3.4-4.8); Albumin/Globulin Ratio 1.2 (1.2-2.2); Alkaline Phosphatase 128 U/L (46-116); Anion Gap 9 (7-16); Aspartate Amino Transferase 47 U/L (0-34); BUN/Creatinine Ratio 17 Ratio (12-20); Bilirubin,Total 1.8 mg/dL (0.3-1.2); Blood Urea Nitrogen 26 mg/dL (9-23); Calcium 8.2 mg/dL (8.3-10.6); Calcium (Corrected) 8.6 mg/dL (8.5-10.1); Carbon Dioxide 24.3 mMol/L (20.0-31.0); Chloride 104 mMol/L (98-107); Creatinine (Component) 1.5 mg/dL (0.6-1.3); Estimated Creatinine Clearance 50.4 mL/min (>60); Globulin 2.9 gm/dL (2.3-3.5); Glucose 105 mg/dL (74-106); Magnesium 1.6 mg/dL (1.6-2.6); Osmolality,Calculated 278 (275-295); Phosphorous 3.8 mg/dL (2.4-5.1); Potassium 3.3 mMol/L (3.4-5.1); Sodium 137 mMol/L (136-145); Thyroid Stimulating Hormone 3.95 uIU/mL (0.55-4.78); Total Protein 6.4 gm/dL (5.7-8.2); eGFR 52 See Note
[2024-04-30] MEDS: ASPIRIN EC 81 MG TABEC PO (08:31)
[2024-04-30] MEDS: THIAMINE 100 MG TABLET PO ×2 (08:32→20:38)
[2024-04-30] MEDS: POTASSIUM CHLORIDE 20 mEq TABCR 40 MEQ PO ×2 (08:32→09:58)
[2024-04-30] MEDS: FOLIC ACID 1 MG TABLET PO ×2 (08:32→20:38)
[2024-04-30] MEDS: APIXABAN 2.5 MG TABLET 5 MG PO ×2 (08:32→20:38)
[2024-04-30] MEDS: Magnesium Sulfate 4 GM Ivpb 4 GM/50 ML BAG IV (08:32)
[2024-04-30] MEDS: BUMETANIDE INJ 0.25 MG/ML VIAL 4 ML 1 MG IVP (08:33)
[2024-04-30] MEDS: LORazepam 0.5 MG TABLET 2 MG PO (09:56)
--- NOTE | 2024-04-30 11:34 | PC.SS ---
Miguelito Sheikh is a 64-year-old male admitted to [facility] for CHF Exacerbation. SS conducted bedside contact with the patient to complete initial assessment and to discuss discharge planning. Patient confirmed demographic information. Patient identifies his sister Svetlana Cruz [phone] as his surrogate decision maker. Patient reports being homeless but does receive SSI. Pt states he is able to complete all ADL?s independently, no need for any source of DME. Pt is could not remember his PCP and pharmacy of choice is [facility]. DC option discussed and pt wishes to return to the community, refused intermediate. Pts family will provide transportation upon DC. No further intervention required at this time, social secretary would be available to address any further concerns.
--- NOTE | 2024-04-30 12:14 | ESPR_ITS ---
<Statement entered by Madalyn Byrne MD - 04/30/24 17:58> Senior Resident Attestation: I supervised/discussed management plan with resident physician Dr. Rojas, and was involved in the care of this patient. I personally saw and examined the patient and discussed the assessment and plan with the entire medicine team, including my attending. I agree with the assessment and plan as documented. Patient's care was discussed with attending physician, Dr. Eloy Byrne MD PGY-3 Documentation for date of: 04/30/24 Subjective Subjective Interval history: Patient seen and bedside Patient is saturating well on room air, acute hypoxic respiratory failure resolved. Patient is -8.5 L in the last 24 hours with total urine output of 9.6 L Will change Bumex dose from 2 mg twice daily to 2 mg daily Patient complains he is hungry and requesting double portions Ordered snacks in between meals, maintain fluid restriction 1500 cc. Will consider adding Entresto and initiating beta-augustine therapy after CHF exacerbation has resolved. Exam Vital Signs Temp Pulse Resp BP Pulse Ox O2 Del Method O2 Flow Rate 98.7 F 88 19 107/78 100 Room Air 2 04/30/24 08:00 04/30/24 08:33 04/30/24 08:00 04/30/24 08:33 04/30/24 08:00 04/30/24 08:00 04/30/24 04:00 Narrative Exam GENERAL APPEARANCE: Patient is AOx3, generally well-appearing male in mild distress. HEENT: NC, AT. MMM. EOMI, clear conjunctiva, oropharynx clear. JVD NECK: Supple without lymphadenopathy. No stiffness or restricted ROM. HEART: Regular rate and regular rhythm, normal S1/S2, no m/r/g LUNGS: Bilateral crackles heard on auscultation, wheezing heard bilaterally ABDOMEN: Soft, nontender, nondistended with good bowel sounds heard. BACK: No CVAT, no obvious deformity. EXTREMITIES: 1+ pitting edema noticed on both lower extremities NEUROLOGICAL: Grossly nonfocal. Alert and oriented, moving all 4 extremities. CN not formally tested but appear grossly intact. Skin: Warm and dry without any rash. Objective Labs 05/01/24 04:46 05/01/24 04:46 Labs: Laboratory Results - last 24 hr 04/29/24 04/30/24 12:19 05:03 WBC 8.4 RBC 4.40 L Hgb 12.6 L D Hct 37.5 L MCV 85 MCH 28.6 MCHC 33.6 RDW Std Deviation 54.1 H Plt Count 121 L Neut % (Auto) 75 Lymph % (Auto) 10 [place] % (Auto) 12 Eos % (Auto) 2 Baso % (Auto) 1 Neut # (Auto) 6.3 Lymph # (Auto) 0.9 L [place] # (Auto) 1.0 H Eos # (Auto) 0.1 Baso # (Auto) 0.1 Immature Gran # (Auto) 0.03 H Absolute Nucleated RBC 0.00 Immature Gran % 0 Nucleated RBC % 0 PT 14.0 H INR 1.3 APTT 28.8 Sodium 137 Potassium 3.3 L D Chloride 104 Carbon Dioxide 24.3 Anion Gap 9 BUN 26 H Creatinine 1.5 H Estim Creat Clear Calc 50.4 L eGFR 52 L BUN/Creatinine Ratio [address] Glu mg/dL 114 Hemoglobin A1c 5.6 Calculated Osmolality 278 Calcium 8.2 L Corrected Calcium 8.6 Phosphorus 3.8 Magnesium 1.6 Total Bilirubin 1.8 H AST 47 H ALT 28 Alkaline Phosphatase 128 H D Troponin I 1.532 H* D Total Protein 6.4 Albumin 3.5 D Globulin 2.9 Albumin/Globulin Ratio 1.2 TSH 3.95 Quality Measures Quality Measures none Assessment & Plan Assessment Current Active Medications: Generic Name Dose Route Start Last Admin Trade Name Freq PRN Reason Stop Dose Admin Acetaminophen 650 mg 04/29/24 11:54 Acetaminophen 325 Mg Tablet PO 05/29/24 11:53 Q6H PRN Pain and Fever >100.3 Albuterol/Ipratropium 3 ml 04/30/24 10:30 Albuterol/Ipratropium (Duoneb) Rt Lacie 3 Ml Nebu INH 05/30/24 12:59 Q6HRRT PRN WHEEZING Apixaban 5 mg 04/29/24 12:15 04/30/24 08:32 Apixaban 2.5 Mg Tablet PO 05/29/24 12:14 5 mg BID JANETTE Administration Aspirin 81 mg 04/29/24 12:15 04/30/24 08:31 Aspirin Ec 81 Mg Tabec PO 05/29/24 12:14 81 mg QDAY JANETTE Administration Atorvastatin Calcium 40 mg 04/29/24 21:00 04/29/24 21:16 Atorvastatin Calcium 20 Mg Tablet PO 05/29/24 20:59 40 mg HS JANETTE Administration Bumetanide 1 mg 04/30/24 09:00 04/30/24 08:33 Bumetanide Inj 0.25 Mg/Ml Vial 4 Ml IVP 05/30/24 08:59 1 mg QDAY JANETTE Administration Folic Acid 1 mg 04/29/24 12:30 04/30/24 08:32 Folic Acid 1 Mg Tablet PO 05/04/24 12:29 1 mg BID JANETTE Administration Lorazepam 0.5 mg 04/29/24 12:22 Lorazepam 0.5 Mg Tablet PO 05/04/24 12:21 Q4HR PRN CIWA Score 2-6 Lorazepam 1 mg 04/29/24 12:22 Lorazepam 0.5 Mg Tablet PO 05/04/24 12:21 Q4HR PRN CIWA SCORE 7-11 Lorazepam 2 mg 04/29/24 12:22 04/30/24 09:56 Lorazepam 0.5 Mg Tablet PO 05/04/24 12:21 2 mg Q4HR PRN Administration CIWA SCORE 12-15 Lorazepam 1 mg 04/29/24 12:22 Lorazepam 2 Mg/Ml Vial IV X1 PRN Breakthrough Agitation Ondansetron HCl 4 mg 04/29/24 11:54 Ondansetron Inj 2 Mg/Ml Inj 2 Ml IV 05/29/24 11:53 Q6H PRN NAUSEA OR VOMITING Protocol Sennosides 1 tab 04/29/24 11:54 Senna Tablet PO 05/29/24 11:53 QDAY PRN constipation Protocol Sodium Chloride 3 ml 04/29/24 08:02 04/29/24 08:46 Sodium Chloride Rt Lacie 0.9% 3 Ml Nebu INH 05/29/24 08:01 3 ml PRN PRN Administration SOLN Thiamine HCl 100 mg 04/29/24 12:30 04/30/24 08:32 Thiamine 100 Mg Tablet PO 05/04/24 12:29 100 mg BID JANETTE Administration Plan Assessment & Plan: Patient is 63 years old male with past medical history of HFrEF (EF 15-20% 01/2024), HTN, HLD, methamphetamine and alcohol use, chronic left foot osteomyelitis, hepatitis C, noncompliant with medication, homelessness, who presents to the ED complaining of shortness of breath. 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 #History of hypertension. #Chronic apical thrombus left ventricle -Patient complains of shortness of breath, unable to speak in full sentences, complains of orthopnea, denies PND. -Patient is noncompliant with medications outpatient, has multiple visits to emergency department for similar complaints -Chest x-ray shows moderate CHF, patient has 2+ bilateral lower extremity edema, crackles heard bilaterally -Last echo was done in January 2024 shows ejection fraction 15 to 20%, severe global hypokinesis, dilated left ventricle, large thrombus near apex 1.5 and 1.8 cm, moderate right ventricular dilation, decreased right ventricular function, severe biatrial dilation -BNP 2769 on admission -04/29/24: Patient is net -8.5 L, patient's weight decreased by 3 Kg, net urine output 9.6 L in 24 hours. Plan: -Changed to Bumex 2 mg once daily -Echocardiogram canceled as last one was within 6 months -Fluid restriction 1500 cc -Strict I&O, daily weight check. -Cardiac Diet, fluid restriction 1500 cc -Avoid cardiotoxic medications -DuoNeb as needed -Turn Down Attendant Dr. Tsang consulted, appreciate recommendations -Monitor tele -continue Eliquis 5 mg p.o. twice daily #NSTEMI type II, demand ischemia #History of hyperlipidemia. -On admission Troponin 0.364 -> 1.921 -> 1.532 -EKG showed sinus rhythm -Denied any chest pain, arm numbness, dizziness. -TSH 3.95 hemoglobin A1c 5.6 -Follow lipid panel in a.m. Plan: -Continue aspirin and atorvastatin -Turn Down Attendant consulted, appreciate recommendations -Monitor tele #GEOVANY On CKD? -Creatinine 1.6 BUN 30, EGFR 48, on admission Plan: -Renally dose medications -Avoid nephrotoxic agents -Monitor CMP #Alcohol use #Transaminitis Patient reports daily use of alcohol 6 pack beer for the last 3 years, last drink was yesterday. AST 72, T. bili 1.9, ALT 45, alk phos 169 CIWA score 0 today Plan -CIWA protocol, Ativan as needed -Monitor CMP daily -Alcohol cessation advised #Substance use disorder. #Homelessness. #Methamphetamine Use #History of hepatitis C. Uses methamphetamine and drinks alcohol daily. Urine tox screen positive for methamphetamine Plan -Referred to socially responsible investment adviser consult. #Chronic left foot osteomyelitis -Patient was diagnosed with left foot osteomyelitis in June 2022. -Denies any pain currently -Reported completing oral antibiotic treatment outpatient Health maintenance: Disposition: Telemetry Diet: Cardiac diet, fluid restriction 1500 cc GI prophylaxis: Not indicated DVT prophylaxis: SCDs, Eliquis Code: Full code Case discussed with Attending Dr. Lyons and Dr. Byrne PGY3. Leilani Rojas PGY1 Attending Provider Attestation/Addendum I have discussed and was present for the essential components of the history, physical examination, diagnosis, and treatment plan with the resident. I agree with the patient's care as documented by the resident and amended herein by me. Nahun Lyons DO. Although this document has been carefully reviewed, there may still be some phonetic and other typographical errors. These errors are purely grammatical due to imperfections in the software program and should not be construed in any way to compromise the substance of the patient's medical care during this visit.
[2024-04-30 13:26] LABS: INR 1.3 (0.9-1.3); Partial Thromboplastin Time 28.2 Seconds (22.0-36.0); Prothrombin Time 13.5 Seconds (9.0-12.2)
--- NOTE | 2024-04-30 16:06 | ESPR_ITS ---
<Statement entered by Misael Tsang MD - 05/01/24 20:13> The patient is evaluated again diuresed very well treatment plan recommendation reviewed as documented by Dr. Collier PGY 2 agree with the treatment plan will monitor the patient again tomorrow Documentation for date of: 04/30/24 Subjective Subjective Interval history: This 64-year-old male with PMHx HFrEF (15-20%, EF Jan 2024), HTN, substance abuse (Meth), Chronic osteomyelitis of the L foot, hep C and medication non- compliance presented to the ED on 04/29/2024 with chief complaint of worsening shortness of breath, chest pain and cough from last couple of days. He denied any nausea or vomiting or diarrhea. No fever or chills. Patient did have a history of LV thrombus for which he was prescribed Eliquis however patient was not taking it. EKG showed normal sinus rhythm, heart rate 85, no ST elevation or depression seen. No PVCs. QTc 518. First-degree AV block it. Old Q waves noted in lead to 3 and aVF. Labs revealed elevated BUN and creatinine 1.6 consistent with CKD. BNP 2800. Troponin elevated at 1.9 down trended to 1.5. U tox positive for methamphetamines. Chest x-ray showed moderate CHF. Vitals showed elevated blood pressure 161/129, mildly tachycardic heart rate 95, respiratory rate 20 and afebrile. He was saturating at 97% on 2 L NC. Patient was given Lasix 80 mg x 1, nitroglycerin x 1, hydralazine 10 mg x 1 and Eliquis 5 mg x 1 in the ED. Cardiology is consulted for CHF exacerbation and LV thrombus. Patient was seen and examined at the bedside. He reported having worsening shortness of breath with mild chest pain and cough from last couple of days.He does have component of non compliance however has been seen by resident in [facility]. We recommended to continue Bumex 2 mg IV twice daily, Eliquis 5 mg 2 times a day, fluid restriction, strict GABRIELLE's and daily weight.Continue aspirin 81 mg once a day. Ordered repeat echocardiogram to evaluate EF and LV thrombus. Will likely Consider adding Entresto 24/26 1 tablet twice daily and metoprolol XL 25 mg once a day given history of heart failure once stable and well diuresed. Cardiology will follow the case closely. 04/30/2024: Patient was seen and examined at the bedside. Patient reported improvement in his shortness of breath and lower extremity swelling. Patient had a urine output of more than 9 L with negative balance of 8 L. Blood pressure remained stable. Kidney function showed improvement with creatinine from 1.6->1.5. Slight drop in hemoglobin to 12.6. Electrolyte panel revealed mild hypokalemia which was repleted. Troponin I down trended. Recommended to decrease diuresis to 2 mg Bumex once a day. No further new recommendations. Continue diuresis, strict GABRIELLE's and fluid restriction for now. Follow-up on echocardiogram. Consider adding low-dose beta-augustine and Entresto upon discharge. All labs and orders were reviewed. Exam Vital Signs Temp Pulse Resp BP Pulse Ox O2 Del Method O2 Flow Rate 99.3 F 88 16 131/95 H 100 Room Air 2 04/30/24 12:00 04/30/24 12:00 04/30/24 12:00 04/30/24 12:00 04/30/24 12:00 04/30/24 12:00 04/30/24 04:00 Narrative Exam GENERAL APPEARANCE: Patient is AOx3, generally well-appearing male in mild distress. Saturating well on RA HEENT: NC, AT. MMM. EOMI, clear conjunctiva, oropharynx clear. Improvement in JVD NECK: Supple without lymphadenopathy. No stiffness or restricted ROM. HEART: Regular rate and regular rhythm, normal S1/S2, no m/r/g LUNGS: Bilateral crackles heard on auscultation ABDOMEN: Soft, nontender, nondistended with good bowel sounds heard. BACK: No CVAT, no obvious deformity. EXTREMITIES: 2+ pitting edema noticed with chronic venous stasis on both lower extremities NEUROLOGICAL: Grossly nonfocal. Alert and oriented, moving all 4 extremities. CN not formally tested but appear grossly intact. Skin: Warm and dry without any rash. Objective Labs 04/30/24 05:03 04/30/24 05:03 Labs: Laboratory Results - last 24 hr 04/30/24 04/30/24 05:03 12:49 WBC 8.4 RBC 4.40 L Hgb 12.6 L D Hct 37.5 L MCV 85 MCH 28.6 MCHC 33.6 RDW Std Deviation 54.1 H Plt Count 121 L Neut % (Auto) 75 Lymph % (Auto) 10 [place] % (Auto) 12 Eos % (Auto) 2 Baso % (Auto) 1 Neut # (Auto) 6.3 Lymph # (Auto) 0.9 L [place] # (Auto) 1.0 H Eos # (Auto) 0.1 Baso # (Auto) 0.1 Immature Gran # (Auto) 0.03 H Absolute Nucleated RBC 0.00 Immature Gran % 0 Nucleated RBC % 0 PT 14.0 H 13.5 H INR 1.3 1.3 APTT 28.8 28.2 Sodium 137 Potassium 3.3 L D Chloride 104 Carbon Dioxide 24.3 Anion Gap 9 BUN 26 H Creatinine 1.5 H Estim Creat Clear Calc 50.4 L eGFR 52 L BUN/Creatinine Ratio [address] Glu mg/dL 114 Hemoglobin A1c 5.6 Calculated Osmolality 278 Calcium 8.2 L Corrected Calcium 8.6 Phosphorus 3.8 Magnesium 1.6 Total Bilirubin 1.8 H AST 47 H ALT 28 Alkaline Phosphatase 128 H D Total Protein 6.4 Albumin 3.5 D Globulin 2.9 Albumin/Globulin Ratio 1.2 TSH 3.95 Quality Measures Quality Measures VTE prophylaxis (Eliquis 5 mg twice daily) Assessment & Plan Assessment Current Active Medications: Generic Name Dose Route Start Last Admin Trade Name Freq PRN Reason Stop Dose Admin Acetaminophen 650 mg 04/29/24 11:54 Acetaminophen 325 Mg Tablet PO 05/29/24 11:53 Q6H PRN Pain and Fever >100.3 Albuterol/Ipratropium 3 ml 04/30/24 10:30 Albuterol/Ipratropium (Duoneb) Rt Lacie 3 Ml Nebu INH 05/30/24 12:59 Q6HRRT PRN WHEEZING Apixaban 5 mg 04/29/24 12:15 04/30/24 08:32 Apixaban 2.5 Mg Tablet PO 05/29/24 12:14 5 mg BID JANETTE Administration Aspirin 81 mg 04/29/24 12:15 04/30/24 08:31 Aspirin Ec 81 Mg Tabec PO 05/29/24 12:14 81 mg QDAY JANETTE Administration Atorvastatin Calcium 40 mg 04/29/24 21:00 04/29/24 21:16 Atorvastatin Calcium 20 Mg Tablet PO 05/29/24 20:59 40 mg HS JANETTE Administration Bumetanide 2 mg 05/01/24 09:00 Bumetanide Inj 0.25 Mg/Ml Vial 4 Ml IVP 05/31/24 08:59 QDAY JANETTE Folic Acid 1 mg 04/29/24 12:30 04/30/24 08:32 Folic Acid 1 Mg Tablet PO 05/04/24 12:29 1 mg BID JANETTE Administration Lorazepam 0.5 mg 04/29/24 12:22 Lorazepam 0.5 Mg Tablet PO 05/04/24 12:21 Q4HR PRN CIWA Score 2-6 Lorazepam 1 mg 04/29/24 12:22 Lorazepam 0.5 Mg Tablet PO 05/04/24 12:21 Q4HR PRN CIWA SCORE 7-11 Lorazepam 2 mg 04/29/24 12:22 04/30/24 09:56 Lorazepam 0.5 Mg Tablet PO 05/04/24 12:21 2 mg Q4HR PRN Administration CIWA SCORE 12-15 Lorazepam 1 mg 04/29/24 12:22 Lorazepam 2 Mg/Ml Vial IV X1 PRN Breakthrough Agitation Ondansetron HCl 4 mg 04/29/24 11:54 Ondansetron Inj 2 Mg/Ml Inj 2 Ml IV 05/29/24 11:53 Q6H PRN NAUSEA OR VOMITING Protocol Sennosides 1 tab 04/29/24 11:54 Senna Tablet PO 05/29/24 11:53 QDAY PRN constipation Protocol Sodium Chloride 3 ml 04/29/24 08:02 04/29/24 08:46 Sodium Chloride Rt Lacie 0.9% 3 Ml Nebu INH 05/29/24 08:01 3 ml PRN PRN Administration SOLN Thiamine HCl 100 mg 04/29/24 12:30 04/30/24 08:32 Thiamine 100 Mg Tablet PO 05/04/24 12:29 100 mg BID JANETTE Administration Plan This 64-year-old male with PMHx HFrEF (15-20%, EF Jan 2024), HTN, substance abuse (Meth), Chronic osteomyelitis of the L foot, hep C and medication non- compliance presented to the ED on 04/29/2024 with chief complaint of worsening shortness of breath, chest pain and cough from last couple of days. He denied any nausea or vomiting or diarrhea. No fever or chills. Patient did have a history of LV thrombus for which he was prescribed Eliquis however patient was not taking it. EKG showed normal sinus rhythm, heart rate 85, no ST elevation or depression seen. No PVCs. QTc 518. First-degree AV block it. Old Q waves noted in lead to 3 and aVF. Labs revealed elevated BUN and creatinine 1.6 consistent with CKD. BNP 2800. Troponin elevated at 1.9 down trended to 1.5. U tox positive for methamphetamines. Chest x-ray showed moderate CHF. Vitals showed elevated blood pressure 161/129, mildly tachycardic heart rate 95, respiratory rate 20 and afebrile. He was saturating at 97% on 2 L NC. Patient was given Lasix 80 mg x 1, nitroglycerin x 1, hydralazine 10 mg x 1 and Eliquis 5 mg x 1 in the ED. # Acute Hypoxic resp failure # Meth induced Toxic Cardiomyopahty # HFrEF, EF 15-20% per January 2024 # LV thrombus per echo from January on Eliquis # Hypertensive urgency # Methamphetamine abuse disorder ? Patient presented with worsening shortness of breath, chest pain and mild cough for last couple of days. He also has lower extremity swelling/edema. Prominent JVD noticed.Echocardiogram from January 2024 showed dilated LV. Severe systolic dysfunction. Severe global hypokinesis. Large thrombus near apex 1.5 x 1.8 cm. Moderate RV dilation. Severe biatrial dilation. Ascending aorta mildly dilated 3.6 cm. Mild to moderate MR. ?Patient was given Lasix 80 mg x 1, hydralazine 10 mg x 1. ?Patient was prescribed Lasix 40 mg once a day, Eliquis 5 mg twice a day and Entresto at home ? Patient has significant improvement in shortness of breath and lower extremity swelling. Urine output showed negative evidence of 8 L. Plan: ? Recommended to decrease dose of Bumex to 1 mg once a day ? Monitor strict GABRIELLE's, fluid restriction 1500 cc daily, daily weight ? Will likely Consider starting Entresto 1 tablet twice daily and add metoprolol 25 XL once a day once stable and well diuresed ? Kidney function showed improvement after diuresis most likely hyperperfusion injury related to CHF ? Follow up on echo ? Monitor vitals closely ? Replete electrolytes as necessary ? Keep magnesium above 2 and potassium above 4 ?Potassium was repleted ? Patient needs close follow-up for compliance of medications # NSTEMI type II likely supply demand ischemia ?Initial troponin I was elevated at 1.9 down trended to 1.5. ? EKG did not show new ST-T changes. Plan: ? Troponin I down trended ? Monitor patient for signs symptoms of chest pain or shortness of breath ? Monitor vitals Other active problems: # GEOVANY on CKD stage IIIa # Normocytic anemia # Thrombocytopenia # Electrolyte disturbance # Hypokalemia # Alcohol use disorder # History of chronic osteomyelitis left foot, # History of hep C and medication noncompliance Rest of the management as per primary care team. -- Thank you very much for consulting cardiology team. Recommended to decrease dose of Bumex to 2 mg once a day, continue fluid restriction, strict GABRIELLE's and daily weights. Continue Eliquis 5 mg twice daily for LV thrombus and will likely follow-up on new echocardiogram. Plan of care discussed with tar boiler, Dr. Sharan Collier MD, PGY 2
[2024-04-30] MEDS: LORazepam 0.5 MG TABLET 1 MG PO (16:55)
--- NOTE | 2024-04-30 17:31 | EKG_ITS ---
[facility] Test Date: 2024-04-30 Pat Name: NELDA LEON Department: Room: S261A Gender: Male Interior Design Professional: NITIN : 1960 Requested By: Albert Dorman Order Number: [id number] Reading MD: Albert Dorman Measurements Intervals [place] Rate: 129 P: 199 WV: 209 QRS: -54 QRSD: 192 T: 120 QT: 348 QTc: 511 Interpretive Statements SINUS TACHYCARDIA RIGHT BUNDLE BRANCH BLOCK INFERIOR MYOCARDIAL INFARCTION , OF INDETERMINATE AGE Compared to ECG 04/29/2024 08:16:25 Right bundle-branch block now present Myocardial infarct finding now present Sinus rhythm no longer present First degree AV block no longer present /store/S0/[id number]/ecg/[id number].pdf
--- NOTE | 2024-04-30 17:39 | PC.NURSE ---
patient;s heart rate sustaing on 135 sinus tachycardiac patient ciwa -9, gave 1mg po lorazepam. patient is tachypnies at this time, dr mayberry is aware, ekg was order ,
--- NOTE | 2024-04-30 18:02 | XR_ITS ---
Examination: AP chest single view Technique one AP portable semiupright chest single view Exam date and time: April 30, 2024 1808 hrs. Comparison April 29, 2024 Indications: Onset difficulty breathing this week, clinical diagnosis exacerbation CHF, chest x-ray April 29, 2024 moderate CHF Findings: Moderate CHF Moderate enlargement cardiac contour Ectatic thoracic aorta. Prominent vascular congestion including central vascular engorgement Perihilar basilar edema within the small bilateral pleural effusions Moderate osteopenia Impression: Moderate CHF
[2024-04-30] MEDS: BUMETANIDE INJ 0.25 MG/ML VIAL 4 ML 2 MG IVP (18:39)
[2024-04-30 18:43] LABS: Lactate (Lactic Acid) 1.8 mMol/L (0.4-2.0)
[2024-04-30 18:45] LABS: Basophils # (Auto) 0.1 Thou/mm3 (0.0-0.2); Basophils % (Auto) 1 % (0-2.5); Eosinophils # (Auto) 0.3 Thou/mm3 (0.0-0.5); Eosinophils % (Auto) 4 % (0-10); Hematocrit 38.3 % (41.0-53.0); Hemoglobin 12.7 g/dL (13.5-16.0); Immature Granulocytes % (Auto) 0 % (0-0); Immature Granulocytes Auto 0.03 Thou/mm3 (0.00-0.00); Lymphocytes # (Auto) 1.2 Thou/mm3 (1.0-4.8); Lymphocytes % (Auto) 13 % (10-50); Mean Corpuscular HGB Conc 33.2 g/dl (31.0-37.0); Mean Corpuscular Hemoglobin 28.5 pg (25.0-35.0); Mean Corpuscular Volume 86 fL (80-100); Monocytes # (Auto) 1.1 Thou/mm3 (0.0-0.8); Monocytes % (Auto) 12 % (0-12); Neutrophils # (Auto) 6.4 Thou/mm3 (1.8-7.7); Neutrophils % (Auto) 71 % (37-80); Nucleated Red Blood Cell % 0 /100 WBC (0); Platelet Count 134 Thou/mm3 (140-440); RDW Standard Deviation 54.1 fL (35.1-43.9); Red Blood Count 4.46 Miln/mm3 (4.50-5.90); White Blood Count 9.1 Thou/mm3 (3.8-10.6)
--- NOTE | 2024-04-30 18:56 | PC.NURSE ---
attempted to apply z- guard to groin but refused.
[2024-04-30 19:03] LABS: Alanine Aminotransferase 29 U/L (10-49); Albumin, Serum 3.6 gm/dL (3.4-4.8); Albumin/Globulin Ratio 1.2 (1.2-2.2); Alkaline Phosphatase 134 U/L (46-116); Anion Gap 6 (7-16); Aspartate Amino Transferase 40 U/L (0-34); BUN/Creatinine Ratio 15 Ratio (12-20); Bilirubin,Total 1.4 mg/dL (0.3-1.2); Blood Urea Nitrogen 22 mg/dL (9-23); Calcium 8.3 mg/dL (8.3-10.6); Calcium (Corrected) 8.6 mg/dL (8.5-10.1); Carbon Dioxide 25.6 mMol/L (20.0-31.0); Chloride 104 mMol/L (98-107); Creatinine (Component) 1.5 mg/dL (0.6-1.3); Estimated Creatinine Clearance 50.4 mL/min (>60); Glucose 107 mg/dL (74-106); Osmolality,Calculated 275 (275-295); Potassium 4.3 mMol/L (3.4-5.1); Sodium 136 mMol/L (136-145); Total Protein 6.6 gm/dL (5.7-8.2); eGFR 52 See Note
[2024-04-30] MEDS: ATORVASTATIN CALCIUM 20 MG TABLET 40 MG PO (20:38)
[2024-05-01] VITALS (12 sets, daily range): BP systolic 110–137; BP diastolic 83–104; PULSE 65–133; RESP 18–98; TEMP 36.2–36.6; O2SAT 97–99
[2024-05-01] MEDS: LORazepam 0.5 MG TABLET 1 MG PO ×4 (04:02→15:24)
[2024-05-01 06:08] LABS: Basophils # (Auto) 0.1 Thou/mm3 (0.0-0.2); Basophils % (Auto) 1 % (0-2.5); Eosinophils # (Auto) 0.4 Thou/mm3 (0.0-0.5); Eosinophils % (Auto) 5 % (0-10); Hematocrit 42.1 % (41.0-53.0); Hemoglobin 14.2 g/dL (13.5-16.0); Immature Granulocytes % (Auto) 0 % (0-0); Immature Granulocytes Auto 0.02 Thou/mm3 (0.00-0.00); Lymphocytes # (Auto) 1.9 Thou/mm3 (1.0-4.8); Lymphocytes % (Auto) 23 % (10-50); Mean Corpuscular HGB Conc 33.7 g/dl (31.0-37.0); Mean Corpuscular Hemoglobin 28.5 pg (25.0-35.0); Mean Corpuscular Volume 84 fL (80-100); Monocytes # (Auto) 1.1 Thou/mm3 (0.0-0.8); Monocytes % (Auto) 13 % (0-12); Neutrophils # (Auto) 4.8 Thou/mm3 (1.8-7.7); Neutrophils % (Auto) 57 % (37-80); Nucleated Red Blood Cell # 0.02 Thou/mm3 (0.00-0.00); Nucleated Red Blood Cell % 0 /100 WBC (0); Platelet Count 85 Thou/mm3 (140-440); RDW Standard Deviation 53.3 fL (35.1-43.9); Red Blood Count 4.99 Miln/mm3 (4.50-5.90); White Blood Count 8.3 Thou/mm3 (3.8-10.6)
[2024-05-01 06:35] LABS: Alanine Aminotransferase 27 U/L (10-49); Albumin, Serum 3.8 gm/dL (3.4-4.8); Albumin/Globulin Ratio 1.2 (1.2-2.2); Alkaline Phosphatase 139 U/L (46-116); Anion Gap 9 (7-16); Aspartate Amino Transferase 41 U/L (0-34); BUN/Creatinine Ratio 15 Ratio (12-20); Bilirubin,Total 1.7 mg/dL (0.3-1.2); Blood Urea Nitrogen 23 mg/dL (9-23); Calcium 8.8 mg/dL (8.3-10.6); Carbon Dioxide 25.4 mMol/L (20.0-31.0); Cardiac Risk Estimate 3.4 RATIO (4.0-6.7); Chloride 101 mMol/L (98-107); Cholesterol 116 mg/dL (132-200); Creatinine (Component) 1.5 mg/dL (0.6-1.3); Estimated Creatinine Clearance 50.4 mL/min (>60); Globulin 3.2 gm/dL (2.3-3.5); Glucose 91 mg/dL (74-106); HDL Cholesterol 34 mg/dL (40-60); LDL Cholesterol,Calculated 68 mg/dL (0-130); Osmolality,Calculated 273 (275-295); Sodium 135 mMol/L (136-145); Triglycerides 68 mg/dL (30-150); eGFR 52 See Note
[2024-05-01] MEDS: ALBUTEROL/IPRATROPIUM (Duoneb) RT SOL 3 ML NEBU INH ×3 (07:43→19:00)
[2024-05-01] MEDS: THIAMINE 100 MG TABLET PO ×2 (08:16→20:26)
[2024-05-01] MEDS: ASPIRIN EC 81 MG TABEC PO (08:16)
[2024-05-01] MEDS: APIXABAN 2.5 MG TABLET 5 MG PO ×2 (08:16→20:26)
[2024-05-01] MEDS: FOLIC ACID 1 MG TABLET PO ×2 (08:16→20:26)
[2024-05-01] MEDS: BUMETANIDE INJ 0.25 MG/ML VIAL 4 ML 2 MG IVP (08:17)
--- NOTE | 2024-05-01 12:19 | PC.SS ---
Rounding: One more day of Diuresis, possible DC 05/02
--- NOTE | 2024-05-01 12:25 | ESPR_ITS ---
<Statement entered by Madalyn Byrne MD - 05/01/24 14:07> Senior Resident Attestation: I supervised/discussed management plan with resident physician Dr. Rojas, and was involved in the care of this patient. I personally saw and examined the patient and discussed the assessment and plan with the entire medicine team, including my attending. I agree with the assessment and plan as documented. Patient's care was discussed with attending physician, Dr. Eloy Byrne MD PGY-3 Documentation for date of: 05/01/24 Subjective Subjective Interval history: Patient seen at bedside Patient has -390, had urine output of 2,250mL Patient will be started on Ativan 1 mg every 4 hours scheduled along with CIWA protocol Patient will be started on metoprolol succinate 25 mg per cardiology recommendations Continue strict intake and output, will continue to monitor patient Exam Vital Signs Temp Pulse Resp BP Pulse Ox O2 Del Method O2 Flow Rate 97.5 F 123 H 18 118/88 H 97 Room Air 2 05/01/24 07:58 05/01/24 08:17 05/01/24 07:58 05/01/24 08:17 05/01/24 07:58 05/01/24 07:58 04/30/24 04:00 Narrative Exam GENERAL APPEARANCE: Patient is AOx3, generally well-appearing male in mild distress. HEENT: NC, AT. MMM. EOMI, clear conjunctiva, oropharynx clear. NECK: Supple without lymphadenopathy. No stiffness or restricted ROM. HEART: Regular rate and regular rhythm, normal S1/S2, no m/r/g LUNGS: Bilateral crackles heard on auscultation, wheezing heard bilaterally ABDOMEN: Soft, nontender, nondistended with good bowel sounds heard. BACK: No CVAT, no obvious deformity. EXTREMITIES: No edema noticed on both lower extremities NEUROLOGICAL: Grossly nonfocal. Alert and oriented, moving all 4 extremities. CN not formally tested but appear grossly intact. Skin: Warm and dry without any rash. Objective Labs 05/01/24 04:46 05/01/24 04:46 Labs: Laboratory Results - last 24 hr 04/30/24 04/30/24 05/01/24 12:49 18:27 04:46 WBC 9.1 8.3 RBC 4.46 L 4.99 Hgb 12.7 L 14.2 Hct 38.3 L 42.1 MCV 86 84 MCH 28.5 28.5 MCHC 33.2 33.7 RDW Std Deviation 54.1 H 53.3 H Plt Count 134 L 85 L D Neut % (Auto) 71 57 Lymph % (Auto) 13 23 [place] % (Auto) 12 13 H Eos % (Auto) 4 5 Baso % (Auto) 1 1 Neut # (Auto) 6.4 4.8 Lymph # (Auto) 1.2 1.9 [place] # (Auto) 1.1 H 1.1 H Eos # (Auto) 0.3 0.4 Baso # (Auto) 0.1 0.1 Immature Gran # (Auto) 0.03 H 0.02 H Absolute Nucleated RBC 0.00 0.02 H Immature Gran % 0 0 Nucleated RBC % 0 0 PT 13.5 H INR 1.3 APTT 28.2 Sodium 136 135 L Potassium 4.3 D 4.0 Chloride 104 101 Carbon Dioxide 25.6 25.4 Anion Gap 6 L 9 BUN 22 23 Creatinine 1.5 H 1.5 H Estim Creat Clear Calc 50.4 L 50.4 L eGFR 52 L 52 L BUN/Creatinine Ratio 15 15 Glucose 107 H 91 Calculated Osmolality 275 273 L Lactic Acid 1.8 Calcium 8.3 8.8 Corrected Calcium 8.6 9.0 Magnesium 2.0 Total Bilirubin 1.4 H 1.7 H AST 40 H 41 H ALT 29 27 Alkaline Phosphatase 134 H 139 H Total Protein 6.6 7.0 Albumin 3.6 3.8 Globulin 3.0 3.2 Albumin/Globulin Ratio 1.2 1.2 Triglycerides 68 Cholesterol 116 L LDL Cholesterol, Calc 68 HDL Cholesterol 34 L Cholesterol/HDL Ratio 3.4 L Quality Measures Quality Measures VTE prophylaxis (Eliquis 5 mg twice daily) Assessment & Plan Assessment Current Active Medications: Generic Name Dose Route Start Last Admin Trade Name Freq PRN Reason Stop Dose Admin Acetaminophen 650 mg 04/29/24 11:54 Acetaminophen 325 Mg Tablet PO 05/29/24 11:53 Q6H PRN Pain and Fever >100.3 Albuterol/Ipratropium 3 ml 05/01/24 07:30 05/01/24 07:43 Albuterol/Ipratropium (Duoneb) Rt Lacie 3 Ml Nebu INH 05/31/24 07:29 3 ml Q6HRRT JANETTE Administration Apixaban 5 mg 04/29/24 12:15 05/01/24 08:16 Apixaban 2.5 Mg Tablet PO 05/29/24 12:14 5 mg BID JANETTE Administration Aspirin 81 mg 04/29/24 12:15 05/01/24 08:16 Aspirin Ec 81 Mg Tabec PO 05/29/24 12:14 81 mg QDAY JANETTE Administration Atorvastatin Calcium 40 mg 04/29/24 21:00 04/30/24 20:38 Atorvastatin Calcium 20 Mg Tablet PO 05/29/24 20:59 40 mg HS JANETTE Administration Bumetanide 2 mg 05/01/24 09:00 05/01/24 08:17 Bumetanide Inj 0.25 Mg/Ml Vial 4 Ml IVP 05/31/24 08:59 2 mg QDAY JANETTE Administration Folic Acid 1 mg 04/29/24 12:30 05/01/24 08:16 Folic Acid 1 Mg Tablet PO 05/04/24 12:29 1 mg BID JANETTE Administration Lorazepam 0.5 mg 04/29/24 12:22 Lorazepam 0.5 Mg Tablet PO 05/04/24 12:21 Q4HR PRN CIWA Score 2-6 Lorazepam 1 mg 04/29/24 12:22 05/01/24 04:02 Lorazepam 0.5 Mg Tablet PO 05/04/24 12:21 1 mg Q4HR PRN Administration CIWA SCORE 7-11 Lorazepam 2 mg 04/29/24 12:22 04/30/24 09:56 Lorazepam 0.5 Mg Tablet PO 05/04/24 12:21 2 mg Q4HR PRN Administration CIWA SCORE 12-15 Lorazepam 1 mg 04/29/24 12:22 Lorazepam 2 Mg/Ml Vial IV X1 PRN Breakthrough Agitation Lorazepam 1 mg 05/01/24 07:30 05/01/24 11:47 Lorazepam 0.5 Mg Tablet PO 05/06/24 07:29 1 mg Q4H JANETTE Administration Ondansetron HCl 4 mg 04/29/24 11:54 Ondansetron Inj 2 Mg/Ml Inj 2 Ml IV 05/29/24 11:53 Q6H PRN NAUSEA OR VOMITING Protocol Sennosides 1 tab 04/29/24 11:54 Senna Tablet PO 05/29/24 11:53 QDAY PRN constipation Protocol Sodium Chloride 3 ml 04/29/24 08:02 04/29/24 08:46 Sodium Chloride Rt Lacie 0.9% 3 Ml Nebu INH 05/29/24 08:01 3 ml PRN PRN Administration SOLN Thiamine HCl 100 mg 04/29/24 12:30 05/01/24 08:16 Thiamine 100 Mg Tablet PO 05/04/24 12:29 100 mg BID JANETTE Administration Plan Assessment & Plan: Patient is 63 years old male with past medical history of HFrEF (EF 15-20% 01/2024), HTN, HLD, methamphetamine and alcohol use, chronic left foot osteomyelitis, hepatitis C, noncompliant with medication, homelessness, who presents to the ED complaining of shortness of breath. 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 #History of hypertension. #Chronic apical thrombus left ventricle -Patient complains of shortness of breath, unable to speak in full sentences, complains of orthopnea, denies PND. -Patient is noncompliant with medications outpatient, has multiple visits to emergency department for similar complaints -Chest x-ray shows moderate CHF, patient has 2+ bilateral lower extremity edema, crackles heard bilaterally -Last echo was done in January 2024 shows ejection fraction 15 to 20%, severe global hypokinesis, dilated left ventricle, large thrombus near apex 1.5 and 1.8 cm, moderate right ventricular dilation, decreased right ventricular function, severe biatrial dilation -BNP 2769 on admission -04/29/24: Patient is net -8.5 L, patient's weight decreased by 3 Kg, net urine output 9.6 L in 24 hours. -04/30/24: Patient is -390 mL, net urine output 2.25 L in 24 hours. Plan: -Continue Bumex 2 mg once daily -Started on metoprolol succinate 25 mg daily -Fluid restriction 1500 cc -Strict I&O, daily weight check -Cardiac Diet, fluid restriction 1500 cc -Avoid cardiotoxic medications -DuoNeb as needed -Radiology Asst Dr. Tsang consulted, appreciate recommendations -Monitor tele -continue Eliquis 5 mg p.o. twice daily -Will consider adding Entresto in a.m. if blood pressure holds #NSTEMI type II, demand ischemia #History of hyperlipidemia. -On admission Troponin 0.364 -> 1.921 -> 1.532 -EKG showed sinus rhythm -Denied any chest pain, arm numbness, dizziness. -TSH 3.95 hemoglobin A1c 5.6 -Follow lipid panel in a.m. Plan: -Continue aspirin and atorvastatin -Radiology Asst consulted, appreciate recommendations -Monitor tele #GEOVANY On CKD? -Creatinine 1.6 BUN 30, EGFR 48, on admission Plan: -Renally dose medications -Avoid nephrotoxic agents -Monitor CMP #Alcohol dependence with withdrawal #Transaminitis Patient reports daily use of alcohol 6 pack beer for the last 3 years, last drink was yesterday. AST 72, T. bili 1.9, ALT 45, alk phos 169 CIWA score 11 today Plan -CIWA protocol, Ativan as needed -Scheduled Ativan 1 mg every 4 hours -Monitor CMP daily -Alcohol cessation advised #Substance use disorder. #Homelessness. #Methamphetamine Use #History of hepatitis C. Uses methamphetamine and drinks alcohol daily. Urine tox screen positive for methamphetamine Plan -Referred to social welfare administrator consult. #Chronic left foot osteomyelitis -Patient was diagnosed with left foot osteomyelitis in June 2022. -Denies any pain currently -Reported completing oral antibiotic treatment outpatient Health maintenance: Disposition: Telemetry Diet: Cardiac diet, fluid restriction 1500 cc GI prophylaxis: Not indicated DVT prophylaxis: Joanne Hernandezqumandeep Code: Full code Case discussed with Attending Dr. Lyons and Dr. Byrne PGY3. Leilani Rojas PGY1 Attending Provider Attestation/Addendum I have discussed and was present for the essential components of the history, physical examination, diagnosis, and treatment plan with the resident. I agree with the patient's care as documented by the resident and amended herein by me. Nahun Lyons, DO. Patient seen and evaluated this AM. Vital signs stable, patient afebrile overnight, patient still tachycardic, with a rate in the 120s, I suspect this is a component of alcohol versus substance abuse withdrawal or combination of both. I's and O's 1859/2249. CBC largely unremarkable, BMP demonstrating a creatinine of 1.5, baseline I suspect is around 1.3 back in March 2024. Will continue aggressive diuresis with Bumex, metoprolol succinate 25 mg daily started today, will start Entresto if patient blood pressure hold. Echo still pending, will also continue Eliquis aspirin and atorvastatin at this time. Cardiology consulted, appreciate recommendations. Although this document has been carefully reviewed, there may still be some phonetic and other typographical errors. These errors are purely grammatical due to imperfections in the software program and should not be construed in any way to compromise the substance of the patient's medical care during this visit.
[2024-05-01] MEDS: METOPROLOL SUCCINATE XL 25 MG TABCR PO ×2 (13:06→23:33)
--- NOTE | 2024-05-01 17:06 | PC.NURSE ---
patient is having hematuria, v/s and labs stable, called and made aware, new order to monitor for increase hematuria,
--- NOTE | 2024-05-01 18:30 | PC.NURSE ---
patient wants to go home. dr. gomez is aware.
[2024-05-01] MEDS: LORazepam 0.5 MG TABLET 2 MG PO (19:10)
--- NOTE | 2024-05-01 20:00 | PC.NURSE ---
patient is walking around room with no gown, zen refuses to wear monitor, Dr Garcia was made aware. patient gets angry and yellls when you cannot understand him.
[2024-05-01] MEDS: ATORVASTATIN CALCIUM 20 MG TABLET 40 MG PO (20:26)
[2024-05-01 20:47] LABS: Hematocrit 43.8 % (41.0-53.0); Hemoglobin 14.5 g/dL (13.5-16.0)
--- NOTE | 2024-05-01 21:00 | PC.NURSE ---
patient wandered out of room naked. i was able to redirect him to bed and got him pajama pants
--- NOTE | 2024-05-01 21:13 | ESPR_ITS ---
RE: NELDA LEON : 1960 DATE OF SERVICE: 05/01/2024 The patient developed some tachycardia. Came to the hospital with severe shortness of breath, acutely decompensated congestive heart failure and responded well to diuretic therapy, but developed some tachycardia today. Started on beta augustine. Now, he is having some shortness of breath and fatigue. PHYSICAL EXAMINATION: Vital Signs: Blood pressure 120/80, pulse rate is 110, respirations 16, temperature normal. HEENT: Head is atraumatic, normocephalic. Eyes normal. ENT normal. Neck: Supple. Lungs: Decreased breath sounds. No rales or rhonchi. Heart: S1, S2. Regular. tachycardia Abdomen: Thin and soft. Extremities: Mild edema. Genitourinary and Rectal: Not performed. NUCLEAR MEDICAL TECHNOLOGIST: Normal. ASSESSMENT: Acutely decompensated congestive heart failure, improved. RECOMMENDATIONS: Continue metoprolol 25 mg, start with 25 mg first, possibly increase to 25 mg twice daily, starting tonight and monitor heart rate closely. As long as the blood pressure is tolerating, we will increase the beta augustine dosage. DT: 20:45:23 TT: 21:11:00 Ref: [id number] - TID: [id number]
[2024-05-01] MEDS: LORazepam 2 MG/ML VIAL 1 MG IV (21:40)
[2024-05-02] VITALS (12 sets, daily range): BP systolic 107–125; BP diastolic 73–96; PULSE 74–122; RESP 18–98; TEMP 36.2–37.1; O2SAT 94–99; BMI 22.8
[2024-05-02] MEDS: ALBUTEROL/IPRATROPIUM (Duoneb) RT SOL 3 ML NEBU INH ×4 (00:24→19:39)
[2024-05-02 05:59] LABS: Basophils # (Auto) 0.1 Thou/mm3 (0.0-0.2); Basophils % (Auto) 1 % (0-2.5); Eosinophils # (Auto) 0.4 Thou/mm3 (0.0-0.5); Eosinophils % (Auto) 4 % (0-10); Hematocrit 42.4 % (41.0-53.0); Hemoglobin 14.3 g/dL (13.5-16.0); Immature Granulocytes % (Auto) 0 % (0-0); Immature Granulocytes Auto 0.02 Thou/mm3 (0.00-0.00); Lymphocytes # (Auto) 2.1 Thou/mm3 (1.0-4.8); Lymphocytes % (Auto) 25 % (10-50); Mean Corpuscular HGB Conc 33.7 g/dl (31.0-37.0); Mean Corpuscular Hemoglobin 28.7 pg (25.0-35.0); Mean Corpuscular Volume 85 fL (80-100); Monocytes % (Auto) 12 % (0-12); Neutrophils # (Auto) 4.7 Thou/mm3 (1.8-7.7); Neutrophils % (Auto) 57 % (37-80); Nucleated Red Blood Cell % 0 /100 WBC (0); Platelet Count 90 Thou/mm3 (140-440); RDW Standard Deviation 53.6 fL (35.1-43.9); Red Blood Count 4.99 Miln/mm3 (4.50-5.90); White Blood Count 8.3 Thou/mm3 (3.8-10.6)
[2024-05-02 06:31] LABS: Alanine Aminotransferase 23 U/L (10-49); Albumin, Serum 3.7 gm/dL (3.4-4.8); Albumin/Globulin Ratio 1.2 (1.2-2.2); Alkaline Phosphatase 134 U/L (46-116); Anion Gap 9 (7-16); Aspartate Amino Transferase 34 U/L (0-34); BUN/Creatinine Ratio 17 Ratio (12-20); Bilirubin,Total 1.4 mg/dL (0.3-1.2); Blood Urea Nitrogen 25 mg/dL (9-23); Calcium 8.6 mg/dL (8.3-10.6); Calcium (Corrected) 8.8 mg/dL (8.5-10.1); Carbon Dioxide 25.5 mMol/L (20.0-31.0); Chloride 101 mMol/L (98-107); Creatinine (Component) 1.5 mg/dL (0.6-1.3); Estimated Creatinine Clearance 50.4 mL/min (>60); Globulin 3.2 gm/dL (2.3-3.5); Glucose 86 mg/dL (74-106); Osmolality,Calculated 273 (275-295); Potassium 4.1 mMol/L (3.4-5.1); Sodium 135 mMol/L (136-145); Total Protein 6.9 gm/dL (5.7-8.2); eGFR 52 See Note
[2024-05-02] MEDS: LORazepam 0.5 MG TABLET 1 MG PO ×4 (07:39→20:45)
[2024-05-02] MEDS: ASPIRIN EC 81 MG TABEC PO (08:09)
[2024-05-02] MEDS: FOLIC ACID 1 MG TABLET PO ×2 (08:09→20:45)
[2024-05-02] MEDS: THIAMINE 100 MG TABLET PO ×2 (08:09→20:45)
[2024-05-02] MEDS: APIXABAN 2.5 MG TABLET 5 MG PO ×2 (08:09→20:45)
[2024-05-02] MEDS: METOPROLOL SUCCINATE XL 25 MG TABCR PO ×2 (08:12→20:45)
[2024-05-02] MEDS: BUMETANIDE INJ 0.25 MG/ML VIAL 4 ML 2 MG IVP (08:12)
[2024-05-02] MEDS: chlordiazePOXIDE HCl 25 MG CAPSULE PO ×2 (10:33→20:44)
--- NOTE | 2024-05-02 10:52 | PC.SS ---
Rounding: on CIWA protocol
--- NOTE | 2024-05-02 13:05 | ESPR_ITS ---
<Statement entered by Madalyn Byrne MD - 05/03/24 07:34> Senior Resident Attestation: I supervised/discussed management plan with resident physician Dr. Roajs, and was involved in the care of this patient. I personally saw and examined the patient and discussed the assessment and plan with the entire medicine team, including my attending. I agree with the assessment and plan as documented. Patient's care was discussed with attending physician, Dr. Eloy Byrne MD PGY-3 Documentation for date of: 05/02/24 Subjective Subjective Interval history: Patient seen at bedside Patient refusing telemetry box, telemetry monitoring. Explained to the patient risks of being off of nuclear monitoring technician, patient verbalized understanding. Patient is able to lie flat, CHF exacerbation has resolved. Patient is on metoprolol succinate 25 twice daily. Will consider adding Entresto in a.m. Patient's CIWA score yesterday was 19, patient does have symptoms of alcohol withdrawal, started on Librium 25 twice daily. Will continue to monitor patient. Exam Vital Signs Temp Pulse Resp BP Pulse Ox O2 Del Method O2 Flow Rate 97.1 F 76 20 121/93 H 97 Room Air 2 05/02/24 12:00 05/02/24 12:15 05/02/24 12:15 05/02/24 12:00 05/02/24 12:15 05/02/24 12:00 04/30/24 04:00 Narrative Exam GENERAL APPEARANCE: Patient is AOx3, generally well-appearing male in mild distress. HEENT: NC, AT. MMM. EOMI, clear conjunctiva, oropharynx clear. NECK: Supple without lymphadenopathy. No stiffness or restricted ROM. HEART: Regular rate and regular rhythm, normal S1/S2, no m/r/g LUNGS: Bilateral crackles heard on auscultation, wheezing heard bilaterally ABDOMEN: Soft, nontender, nondistended with good bowel sounds heard. BACK: No CVAT, no obvious deformity. EXTREMITIES: No edema noticed on both lower extremities NEUROLOGICAL: Grossly nonfocal. Alert and oriented, moving all 4 extremities. CN not formally tested but appear grossly intact. Skin: Warm and dry without any rash. Objective Labs 05/02/24 05:05 05/02/24 05:05 Labs: Laboratory Results - last 24 hr 05/01/24 05/02/24 20:25 05:05 WBC 8.3 RBC 4.99 Hgb 14.5 14.3 Hct 43.8 42.4 MCV 85 MCH 28.7 MCHC 33.7 RDW Std Deviation 53.6 H Plt Count 90 L Neut % (Auto) 57 Lymph % (Auto) 25 [place] % (Auto) 12 Eos % (Auto) 4 Baso % (Auto) 1 Neut # (Auto) 4.7 Lymph # (Auto) 2.1 [place] # (Auto) 1.0 H Eos # (Auto) 0.4 Baso # (Auto) 0.1 Immature Gran # (Auto) 0.02 H Absolute Nucleated RBC 0.00 Immature Gran % 0 Nucleated RBC % 0 Sodium 135 L Potassium 4.1 Chloride 101 Carbon Dioxide 25.5 Anion Gap 9 BUN 25 H Creatinine 1.5 H Estim Creat Clear Calc 50.4 L eGFR 52 L BUN/Creatinine Ratio 17 Glucose 86 Calculated Osmolality 273 L Calcium 8.6 Corrected Calcium 8.8 Magnesium 2.0 Total Bilirubin 1.4 H AST 34 ALT 23 Alkaline Phosphatase 134 H Total Protein 6.9 Albumin 3.7 Globulin 3.2 Albumin/Globulin Ratio 1.2 Quality Measures Quality Measures VTE prophylaxis (Eliquis 5 mg twice daily) Assessment & Plan Assessment Current Active Medications: Generic Name Dose Route Start Last Admin Trade Name Freq PRN Reason Stop Dose Admin Acetaminophen 650 mg 04/29/24 11:54 Acetaminophen 325 Mg Tablet PO 05/29/24 11:53 Q6H PRN Pain and Fever >100.3 Albuterol/Ipratropium 3 ml 05/01/24 07:30 05/02/24 06:37 Albuterol/Ipratropium (Duoneb) Rt Lacie 3 Ml Nebu INH 05/31/24 07:29 3 ml Q6HRRT JANETTE Administration Apixaban 5 mg 04/29/24 12:15 05/02/24 08:09 Apixaban 2.5 Mg Tablet PO 05/29/24 12:14 5 mg BID JANETTE Administration Aspirin 81 mg 04/29/24 12:15 05/02/24 08:09 Aspirin Ec 81 Mg Tabec PO 05/29/24 12:14 81 mg QDAY JANETTE Administration Atorvastatin Calcium 40 mg 04/29/24 21:00 05/01/24 20:26 Atorvastatin Calcium 20 Mg Tablet PO 05/29/24 20:59 40 mg HS JANETTE Administration Bumetanide 2 mg 05/01/24 09:00 05/02/24 08:12 Bumetanide Inj 0.25 Mg/Ml Vial 4 Ml IVP 05/31/24 08:59 2 mg QDAY JANETTE Administration Chlordiazepoxide HCl 25 mg 05/02/24 10:30 05/02/24 10:33 Chlordiazepoxide Hcl 25 Mg Capsule PO 05/07/24 10:29 25 mg BID JANETTE Administration Folic Acid 1 mg 04/29/24 12:30 05/02/24 08:09 Folic Acid 1 Mg Tablet PO 05/04/24 12:29 1 mg BID JANETTE Administration Lorazepam 0.5 mg 04/29/24 12:22 Lorazepam 0.5 Mg Tablet PO 05/04/24 12:21 Q4HR PRN CIWA Score 2-6 Lorazepam 1 mg 04/29/24 12:22 05/01/24 04:02 Lorazepam 0.5 Mg Tablet PO 05/04/24 12:21 1 mg Q4HR PRN Administration CIWA SCORE 7-11 Lorazepam 2 mg 04/29/24 12:22 05/01/24 19:10 Lorazepam 0.5 Mg Tablet PO 05/04/24 12:21 2 mg Q4HR PRN Administration CIWA SCORE 12-15 Lorazepam 1 mg 05/01/24 07:30 05/02/24 11:38 Lorazepam 0.5 Mg Tablet PO 05/06/24 07:29 1 mg Q4H JANETTE Administration Metoprolol Succinate 25 mg 05/02/24 09:00 05/02/24 08:12 Metoprolol Succinate Xl 25 Mg Tabcr PO 06/01/24 08:59 25 mg BID JANETTE Administration Ondansetron HCl 4 mg 04/29/24 11:54 Ondansetron Inj 2 Mg/Ml Inj 2 Ml IV 05/29/24 11:53 Q6H PRN NAUSEA OR VOMITING Protocol Sennosides 1 tab 04/29/24 11:54 Senna Tablet PO 05/29/24 11:53 QDAY PRN constipation Protocol Sodium Chloride 3 ml 04/29/24 08:02 04/29/24 08:46 Sodium Chloride Rt Lacie 0.9% 3 Ml Nebu INH 05/29/24 08:01 3 ml PRN PRN Administration SOLN Thiamine HCl 100 mg 04/29/24 12:30 05/02/24 08:09 Thiamine 100 Mg Tablet PO 05/04/24 12:29 100 mg BID JANETTE Administration Plan Assessment & Plan: Patient is 63 years old male with past medical history of HFrEF (EF 15-20% 01/2024), HTN, HLD, methamphetamine and alcohol use, chronic left foot osteomyelitis, hepatitis C, noncompliant with medication, homelessness, who presents to the ED complaining of shortness of breath. 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 #History of hypertension. #Chronic apical thrombus left ventricle -Patient complains of shortness of breath, unable to speak in full sentences, complains of orthopnea, denies PND. -Patient is noncompliant with medications outpatient, has multiple visits to emergency department for similar complaints -Chest x-ray shows moderate CHF, patient has 2+ bilateral lower extremity edema, crackles heard bilaterally -Last echo was done in January 2024 shows ejection fraction 15 to 20%, severe global hypokinesis, dilated left ventricle, large thrombus near apex 1.5 and 1.8 cm, moderate right ventricular dilation, decreased right ventricular function, severe biatrial dilation -BNP 2769 on admission -04/29/24: Patient is net -8.5 L, patient's weight decreased by 3 Kg, net urine output 9.6 L in 24 hours. -04/30/24: Patient is -390 mL, net urine output 2.25 L in 24 hours. Plan: -Continue Bumex 2 mg once daily -Started on metoprolol succinate 25 mg twice daily -Fluid restriction 1500 cc -Strict I&O, daily weight check -Cardiac Diet, fluid restriction 1500 cc -Avoid cardiotoxic medications -DuoNeb as needed -Blocker Metal Base Dr. Tsang consulted, appreciate recommendations -Monitor tele -continue Eliquis 5 mg p.o. twice daily -Will consider adding Entresto in a.m. if blood pressure holds #NSTEMI type II, demand ischemia #History of hyperlipidemia. -On admission Troponin 0.364 -> 1.921 -> 1.532 -EKG showed sinus rhythm -Denied any chest pain, arm numbness, dizziness. -TSH 3.95 hemoglobin A1c 5.6 -Follow lipid panel in a.m. Plan: -Continue aspirin and atorvastatin -Blocker Metal [employer] consulted, appreciate recommendations -Monitor tele #GEOVANY On CKD? -Creatinine 1.6 BUN 30, EGFR 48, on admission Plan: -Renally dose medications -Avoid nephrotoxic agents -Monitor CMP #Alcohol dependence with withdrawal #Transaminitis Patient reports daily use of alcohol 6 pack beer for the last 3 years, last drink was yesterday. AST 72, T. bili 1.9, ALT 45, alk phos 169 CIWA score 19 overnight Plan -CIWA protocol, Ativan as needed -Started on Librium 25 mg twice daily -Monitor CMP daily -Alcohol cessation advised #Substance use disorder. #Homelessness. #Methamphetamine Use #History of hepatitis C. Uses methamphetamine and drinks alcohol daily. Urine tox screen positive for methamphetamine Plan -Referred to delinquency prevention social worker consult. #Chronic left foot osteomyelitis -Patient was diagnosed with left foot osteomyelitis in June 2022. -Denies any pain currently -Reported completing oral antibiotic treatment outpatient Health maintenance: Disposition: Telemetry Diet: Cardiac diet, fluid restriction 1500 cc GI prophylaxis: Not indicated DVT prophylaxis: SCDs, Eliquis Code: Full code Case discussed with Attending Dr. Lyons and Dr. Byrne PGY3. Leilani Rojas PGY1 Attending Provider Attestation/Addendum I have discussed and was present for the essential components of the history, physical examination, diagnosis, and treatment plan with the resident. I agree with the patient's care as documented by the resident and amended herein by me. Nahun Lyons, DO. Patient seen and evaluated this AM. In short, 64-year-old male with a significant past medical history of substance abuse and HFrEF, EF 15-20% January 2024, medication noncompliance, chronic hepatitis C, and homelessness as of January 2024 presented to the ED for worsening shortness of breath. Patient subsequently admitted for acute decompensated heart failure. Heart rate 110 this morning, I's and O's 1440/650, weight 70 kg today. Per cardiology recommendations will increase metoprolol to 25 mg twice daily as the patient's blood pressure has been stable, may consider starting Entresto prior to discharge and will continue Eliquis, aspirin and atorvastatin. Cardiology consulted, will continue diuresis, creatinine stable at 1.5, likely discharge in 1 to 2 days pending improvement and specialist recommendations. Although this document has been carefully reviewed, there may still be some phonetic and other typographical errors. These errors are purely grammatical due to imperfections in the software program and should not be construed in any way to compromise the substance of the patient's medical care during this visit.
--- NOTE | 2024-05-02 17:45 | ESPR_ITS ---
<Statement entered by Misael Tsang MD - 05/03/24 12:26> I personally evaluated this patient and telemetry appears to be doing clinically much better now appears to develop with delirium tremens and alcohol withdrawal tachycardia developed beta-augustine initiated tolerating well agree with the treatment plan recommendation as formulated by PGY 2 Dr. Collier was present in management of this patient and examined the patient with resident physician Documentation for date of: 05/02/24 Subjective Subjective Interval history: This 64-year-old male with PMHx HFrEF (15-20%, EF Jan 2024), HTN, substance abuse (Meth), Chronic osteomyelitis of the L foot, hep C and medication non- compliance presented to the ED on 04/29/2024 with chief complaint of worsening shortness of breath, chest pain and cough from last couple of days. He denied any nausea or vomiting or diarrhea. No fever or chills. Patient did have a history of LV thrombus for which he was prescribed Eliquis however patient was not taking it. EKG showed normal sinus rhythm, heart rate 85, no ST elevation or depression seen. No PVCs. QTc 518. First-degree AV block it. Old Q waves noted in lead to 3 and aVF. Labs revealed elevated BUN and creatinine 1.6 consistent with CKD. BNP 2800. Troponin elevated at 1.9 down trended to 1.5. U tox positive for methamphetamines. Chest x-ray showed moderate CHF. Vitals showed elevated blood pressure 161/129, mildly tachycardic heart rate 95, respiratory rate 20 and afebrile. He was saturating at 97% on 2 L NC. Patient was given Lasix 80 mg x 1, nitroglycerin x 1, hydralazine 10 mg x 1 and Eliquis 5 mg x 1 in the ED. Cardiology is consulted for CHF exacerbation and LV thrombus. Patient was seen and examined at the bedside. He reported having worsening shortness of breath with mild chest pain and cough from last couple of days.He does have component of non compliance however has been seen by [facility]. We recommended to continue Bumex 2 mg IV twice daily, Eliquis 5 mg 2 times a day, fluid restriction, strict GABRIELLE's and daily weight.Continue aspirin 81 mg once a day. Ordered repeat echocardiogram to evaluate EF and LV thrombus. Will likely Consider adding Entresto 1 tablet twice daily and metoprolol XL 25 mg once a day given history of heart failure once stable and well diuresed. Cardiology will follow the case closely. 04/30/2024: Patient was seen and examined at the bedside. Patient reported improvement in his shortness of breath and lower extremity swelling. Patient had a urine output of more than 9 L with negative balance of 8 L. Blood pressure remained stable. Kidney function showed improvement with creatinine from 1.6->1.5. Slight drop in hemoglobin to 12.6. Electrolyte panel revealed mild hypokalemia which was repleted. Troponin I down trended. Recommended to decrease diuresis to 2 mg Bumex once a day. No further new recommendations. Continue diuresis, strict GABRIELLE's and fluid restriction for now. Follow-up on echocardiogram. Consider adding low-dose beta-augustine and Entresto upon discharge. All labs and orders were reviewed. 05/02/2024: Patient was seen and examined at the bedside. Patient was short of breath and was withdrawing from alcohol and meth. He has been managed on CIWA protocol as needed. Recommended to continue Bumex 2 mg once a day, started metoprolol 25 mg twice a day and echocardiogram was deferred given recent echo in January. Continue fluid restriction, strict GABRIELLE's and daily weight. All labs and orders were reviewed. Exam Vital Signs Temp Pulse Resp BP Pulse Ox O2 Del Method O2 Flow Rate 98.3 F 83 24 H 107/73 97 Room Air 2 05/02/24 16:00 05/02/24 16:00 05/02/24 16:00 05/02/24 16:00 05/02/24 16:00 05/02/24 16:04/30/24 04:00 Narrative Exam GENERAL APPEARANCE: Patient is AOx3, male in mild distress. Saturating well on RA HEENT: NC, AT. MMM. EOMI, clear conjunctiva, oropharynx clear. Improvement in JVD NECK: Supple without lymphadenopathy. No stiffness or restricted ROM. HEART: Regular rate and regular rhythm, normal S1/S2, no m/r/g LUNGS: Bilateral crackles heard on auscultation ABDOMEN: Soft, nontender, nondistended with good bowel sounds heard. BACK: No CVAT, no obvious deformity. EXTREMITIES: 2+ pitting edema noticed with chronic venous stasis on both lower extremities NEUROLOGICAL: Grossly nonfocal. Alert and oriented, moving all 4 extremities. CN not formally tested but appear grossly intact. Skin: Warm and dry without any rash. Psych: Withdrawing from meth and alcohol CIWA 19 Objective Labs 05/02/24 05:05 05/02/24 05:05 Labs: Laboratory Results - last 24 hr 05/01/24 05/02/24 20:25 05:05 WBC 8.3 RBC 4.99 Hgb 14.5 14.3 Hct 43.8 42.4 MCV 85 MCH 28.7 MCHC 33.7 RDW Std Deviation 53.6 H Plt Count 90 L Neut % (Auto) 57 Lymph % (Auto) 25 [place] % (Auto) 12 Eos % (Auto) 4 Baso % (Auto) 1 Neut # (Auto) 4.7 Lymph # (Auto) 2.1 [place] # (Auto) 1.0 H Eos # (Auto) 0.4 Baso # (Auto) 0.1 Immature Gran # (Auto) 0.02 H Absolute Nucleated RBC 0.00 Immature Gran % 0 Nucleated RBC % 0 Sodium 135 L Potassium 4.1 Chloride 101 Carbon Dioxide 25.5 Anion Gap 9 BUN 25 H Creatinine 1.5 H Estim Creat Clear Calc 50.4 L eGFR 52 L BUN/Creatinine Ratio 17 Glucose 86 Calculated Osmolality 273 L Calcium 8.6 Corrected Calcium 8.8 Magnesium 2.0 Total Bilirubin 1.4 H AST 34 ALT 23 Alkaline Phosphatase 134 H Total Protein 6.9 Albumin 3.7 Globulin 3.2 Albumin/Globulin Ratio 1.2 Quality Measures Quality Measures VTE prophylaxis (Eliquis 5 mg twice daily) Assessment & Plan Assessment Current Active Medications: Generic Name Dose Route Start Last Admin Trade Name Yusufq PRN Reason Stop Dose Admin Acetaminophen 650 mg 04/29/24 11:54 Acetaminophen 325 Mg Tablet PO 05/29/24 11:53 Q6H PRN Pain and Fever >100.3 Albuterol/Ipratropium 3 ml 05/01/24 07:30 05/02/24 06:37 Albuterol/Ipratropium (Duoneb) Rt Lacie 3 Ml Nebu INH 05/31/24 07:29 3 ml Q6HRRT JANETTE Administration Apixaban 5 mg 04/29/24 12:15 05/02/24 08:09 Apixaban 2.5 Mg Tablet PO 05/29/24 12:14 5 mg BID JANETTE Administration Aspirin 81 mg 04/29/24 12:15 05/02/24 08:09 Aspirin Ec 81 Mg Tabec PO 05/29/24 12:14 81 mg QDAY JANETTE Administration Atorvastatin Calcium 40 mg 04/29/24 21:00 05/01/24 20:26 Atorvastatin Calcium 20 Mg Tablet PO 05/29/24 20:59 40 mg HS JANETTE Administration Bumetanide 2 mg 05/01/24 09:00 05/02/24 08:12 Bumetanide Inj 0.25 Mg/Ml Vial 4 Ml IVP 05/31/24 08:59 2 mg QDAY JANETTE Administration Chlordiazepoxide HCl 25 mg 05/02/24 10:30 05/02/24 10:33 Chlordiazepoxide Hcl 25 Mg Capsule PO 05/07/24 10:29 25 mg BID JANETTE Administration Folic Acid 1 mg 04/29/24 12:30 05/02/24 08:09 Folic Acid 1 Mg Tablet PO 05/04/24 12:29 1 mg BID JANETTE Administration Lorazepam 0.5 mg 04/29/24 12:22 Lorazepam 0.5 Mg Tablet PO 05/04/24 12:21 Q4HR PRN CIWA Score 2-6 Lorazepam 1 mg 04/29/24 12:22 05/02/24 16:37 Lorazepam 0.5 Mg Tablet PO 05/04/24 12:21 1 mg Q4HR PRN Administration CIWA SCORE 7-11 Lorazepam 2 mg 04/29/24 12:22 05/01/24 19:10 Lorazepam 0.5 Mg Tablet PO 05/04/24 12:21 2 mg Q4HR PRN Administration CIWA SCORE 12-15 Metoprolol Succinate 25 mg 05/02/24 09:00 05/02/24 08:12 Metoprolol Succinate Xl 25 Mg Tabcr PO 06/01/24 08:59 25 mg BID JANETTE Administration Ondansetron HCl 4 mg 04/29/24 11:54 Ondansetron Inj 2 Mg/Ml Inj 2 Ml IV 05/29/24 11:53 Q6H PRN NAUSEA OR VOMITING Protocol Sennosides 1 tab 04/29/24 11:54 Senna Tablet PO 05/29/24 11:53 QDAY PRN constipation Protocol Sodium Chloride 3 ml 04/29/24 08:02 04/29/24 08:46 Sodium Chloride Rt Lacie 0.9% 3 Ml Nebu INH 05/29/24 08:01 3 ml PRN PRN Administration SOLN Thiamine HCl 100 mg 04/29/24 12:30 05/02/24 08:09 Thiamine 100 Mg Tablet PO 05/04/24 12:29 100 mg BID JANETTE Administration Plan This 64-year-old male with PMHx HFrEF (15-20%, EF Jan 2024), HTN, substance abuse (Meth), Chronic osteomyelitis of the L foot, hep C and medication non- compliance presented to the ED on 04/29/2024 with chief complaint of worsening shortness of breath, chest pain and cough from last couple of days. Admitted for acute hypoxic respiratory failure due to HFrEF EF 15% and meth induced cardiomyopathy. # Acute Hypoxic resp failure # Meth induced Toxic Cardiomyopahty # HFrEF, EF 15-20% per January 2024 # LV thrombus per echo from January on Eliquis # Hypertensive urgency # Methamphetamine abuse disorder ? Patient presented with worsening shortness of breath, chest pain and mild cough for last couple of days. He also has lower extremity swelling/edema. Prominent JVD noticed.Echocardiogram from January 2024 showed dilated LV. Severe systolic dysfunction. Severe global hypokinesis. Large thrombus near apex 1.5 x 1.8 cm. Moderate RV dilation. Severe biatrial dilation. Ascending aorta mildly dilated 3.6 cm. Mild to moderate MR. ?Patient was given Lasix 80 mg x 1, hydralazine 10 mg x 1. ?Patient was prescribed Lasix 40 mg once a day, Eliquis 5 mg twice a day and Entresto at home ? Patient has significant improvement in shortness of breath and lower extremity swelling. Urine output showed negative evidence of 8 L. ? Patient seems to be withdrawing from alcohol and meth therefore will be kept for close monitoring and on CIWA protocol Plan: ? Recommended to continue Bumex 2 mg once a day ? Started metoprolol succinate 25 mg twice daily ? Monitor strict GABRIELLE's, fluid restriction 1500 cc daily, daily weight ? Kidney function remains stable at 1.5 ? Monitor vitals closely ? Replete electrolytes as necessary ? Keep magnesium above 2 and potassium above 4 ? Patient needs close follow-up for compliance of medications ? Continue CIWA protocol and Librium as needed # NSTEMI type II likely supply demand ischemia ?Initial troponin I was elevated at 1.9 down trended to 1.5. ? EKG did not show new ST-T changes. Plan: ? Troponin I down trended ? Monitor patient for signs symptoms of chest pain or shortness of breath ? Monitor vitals Other active problems: # GEOVANY on CKD stage IIIa # Normocytic anemia # Thrombocytopenia # Electrolyte disturbance # Hypokalemia # Alcohol withdrawal alcohol use disorder # History of chronic osteomyelitis left foot, # History of hep C and medication noncompliance Rest of the management as per primary care team. -- Thank you very much for consulting cardiology team. Recommended to continue Bumex 2 mg once a day, started metoprolol succinate 25 mg twice daily and continue CIWA protocol as needed for patient's withdrawal symptoms. Plan of care discussed with certified athletic trainer, Dr. Sharan Collier MD, PGY 2
[2024-05-02] MEDS: ATORVASTATIN CALCIUM 20 MG TABLET 40 MG PO (20:44)
[2024-05-03] VITALS (10 sets, daily range): BP systolic 96–125; BP diastolic 81–94; PULSE 62–117; RESP 12–28; TEMP 36.2–36.8; O2SAT 95–100
--- NOTE | 2024-05-03 | PC.NURSE ---
Pt resting with eyes closed. Respirations are even and unlabored. No s/s of acute distress noted. Call light within reach. Plan of care ongoing.
[2024-05-03] MEDS: LORazepam 0.5 MG TABLET 2 MG PO ×2 (04:28→10:58)
--- NOTE | 2024-05-03 06:08 | PC.NURSE ---
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 Dr. Anthony coppola MD at bedside.
[2024-05-03 06:34] LABS: Basophils # (Auto) 0.1 Thou/mm3 (0.0-0.2); Basophils % (Auto) 1 % (0-2.5); Eosinophils # (Auto) 0.4 Thou/mm3 (0.0-0.5); Eosinophils % (Auto) 5 % (0-10); Hemoglobin 13.5 g/dL (13.5-16.0); Immature Granulocytes % (Auto) 0 % (0-0); Immature Granulocytes Auto 0.03 Thou/mm3 (0.00-0.00); Lymphocytes # (Auto) 1.8 Thou/mm3 (1.0-4.8); Lymphocytes % (Auto) 22 % (10-50); Mean Corpuscular HGB Conc 32.9 g/dl (31.0-37.0); Mean Corpuscular Hemoglobin 28.6 pg (25.0-35.0); Mean Corpuscular Volume 87 fL (80-100); Monocytes # (Auto) 0.9 Thou/mm3 (0.0-0.8); Monocytes % (Auto) 11 % (0-12); Neutrophils # (Auto) 4.8 Thou/mm3 (1.8-7.7); Neutrophils % (Auto) 60 % (37-80); Nucleated Red Blood Cell % 0 /100 WBC (0); Platelet Count 72 Thou/mm3 (140-440); RDW Standard Deviation 55.2 fL (35.1-43.9); Red Blood Count 4.72 Miln/mm3 (4.50-5.90)
[2024-05-03 07:16] LABS: Alanine Aminotransferase 22 U/L (10-49); Albumin, Serum 3.8 gm/dL (3.4-4.8); Albumin/Globulin Ratio 1.2 (1.2-2.2); Alkaline Phosphatase 137 U/L (46-116); Anion Gap 9 (7-16); Aspartate Amino Transferase 34 U/L (0-34); BUN/Creatinine Ratio 19 Ratio (12-20); Blood Urea Nitrogen 32 mg/dL (9-23); Calcium 8.5 mg/dL (8.3-10.6); Calcium (Corrected) 8.7 mg/dL (8.5-10.1); Carbon Dioxide 25.6 mMol/L (20.0-31.0); Chloride 101 mMol/L (98-107); Creatinine (Component) 1.7 mg/dL (0.6-1.3); Globulin 3.3 gm/dL (2.3-3.5); Glucose 120 mg/dL (74-106); Osmolality,Calculated 279 (275-295); Sodium 136 mMol/L (136-145); Total Protein 7.1 gm/dL (5.7-8.2); eGFR 45 See Note
--- NOTE | 2024-05-03 07:36 | PC.NURSE ---
Dr. Rojas aware pt. is very agitated and noncompliant. CIWA done and pt. score 18. Dr. Rojas states I will order IV ativan 1mg x1. Dr. Rojas states It is okay to give all other morning meds now.
[2024-05-03] MEDS: METOPROLOL SUCCINATE XL 25 MG TABCR PO ×2 (07:50→21:00)
[2024-05-03] MEDS: BUMETANIDE INJ 0.25 MG/ML VIAL 4 ML 2 MG IVP (07:50)
[2024-05-03] MEDS: chlordiazePOXIDE HCl 25 MG CAPSULE PO (07:51)
[2024-05-03] MEDS: APIXABAN 2.5 MG TABLET 5 MG PO ×2 (07:52→21:01)
[2024-05-03] MEDS: FOLIC ACID 1 MG TABLET PO ×2 (07:52→21:01)
[2024-05-03] MEDS: THIAMINE 100 MG TABLET PO ×2 (07:52→21:01)
[2024-05-03] MEDS: ASPIRIN EC 81 MG TABEC PO (07:52)
[2024-05-03] MEDS: LORazepam 2 MG/ML VIAL 1 MG IVP (07:53)
--- NOTE | 2024-05-03 07:53 | PC.NURSE ---
Addendum entered by Ale London RN 05/03/24 08:13: Charge Nurse Silverio ayers pt. needs sitter. Telesitter in place but pt. noncompliant Original Note: pt. non compliant and verbally abusive to staff.Pt. cursing and will not comply with safety measures. Dr. Rojas called to bedside and pt. agrees to take meds with at bedside. Pt. refuses to get in bed and wants to sit at bedside but is unsafe.
[2024-05-03 08:01] LABS: Slide Review Platelets confirmed
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
--- NOTE | 2024-05-03 12:11 | PD.RESPRO ---
Documentation for date of: 05/03/24 Subjective Subjective Interval history: Patient seen at bedside. Patient is agitated and noncooperative, refuses telemetry monitoring. Patient is rude to nursing staff, refuses meds at times. Patient is noncompliant with fluid restriction. Patient's CIWA score this morning was 19. Lower suspicion for withdrawals, will discontinue Librium. Will continue to monitor patient. Exam Vital Signs Temp Pulse Resp BP Pulse Ox O2 Del Method O2 Flow Rate 97.3 F 87 20 117/86 H 97 Room Air 5 05/03/24 08:00 05/03/24 08:00 05/03/24 08:00 05/03/24 08:00 05/03/24 08:00 05/03/24 08:00 05/03/24 04:00 Narrative Exam GENERAL APPEARANCE: Patient is AOx3, generally well-appearing male in mild distress. HEENT: NC, AT. MMM. EOMI, clear conjunctiva, oropharynx clear. NECK: Supple without lymphadenopathy. No stiffness or restricted ROM. HEART: Regular rate and regular rhythm, normal S1/S2, no m/r/g LUNGS: Bilateral crackles heard on auscultation, wheezing heard bilaterally ABDOMEN: Soft, nontender, nondistended with good bowel sounds heard. BACK: No CVAT, no obvious deformity. EXTREMITIES: No edema noticed on both lower extremities NEUROLOGICAL: Grossly nonfocal. Alert and oriented, moving all 4 extremities. CN not formally tested but appear grossly intact. Skin: Warm and dry without any rash. Objective Labs 05/03/24 05:07 05/03/24 05:07 Labs: Laboratory Results - last 24 hr 05/03/24 05:07 WBC 8.0 RBC 4.72 Hgb 13.5 Hct 41.0 MCV 87 MCH 28.6 MCHC 32.9 RDW Std Deviation 55.2 H Plt Count 72 L Neut % (Auto) 60 Lymph % (Auto) 22 [place] % (Auto) 11 Eos % (Auto) 5 Baso % (Auto) 1 Neut # (Auto) 4.8 Lymph # (Auto) 1.8 [place] # (Auto) 0.9 H Eos # (Auto) 0.4 Baso # (Auto) 0.1 Immature Gran # (Auto) 0.03 H Absolute Nucleated RBC 0.00 Immature Gran % 0 Nucleated RBC % 0 Sodium 136 Potassium 4.0 Chloride 101 Carbon Dioxide 25.6 Anion Gap 9 BUN 32 H Creatinine 1.7 H Estim Creat Clear Calc 43.0 L eGFR 45 L BUN/Creatinine Ratio 19 Glucose 120 H Calculated Osmolality 279 Calcium 8.5 Corrected Calcium 8.7 Magnesium 2.0 Total Bilirubin 1.0 AST 34 ALT 22 Alkaline Phosphatase 137 H Total Protein 7.1 Albumin 3.8 Globulin 3.3 Albumin/Globulin Ratio 1.2 Misc Test Result Platelets confirmed Quality Measures Quality Measures VTE prophylaxis (Eliquis 5 mg twice daily) Assessment & Plan Assessment Current Active Medications: Generic Name Dose Route Start Last Admin Trade Name Freq PRN Reason Stop Dose Admin Acetaminophen 650 mg 04/29/24 11:54 Acetaminophen 325 Mg Tablet PO 05/29/24 11:53 Q6H PRN Pain and Fever >100.3 Albuterol/Ipratropium 3 ml 05/01/24 07:30 05/03/24 07:32 Albuterol/Ipratropium (Duoneb) Rt Lacie 3 Ml Nebu INH 05/31/24 07:29 Not Given Q6HRRT JANETTE Apixaban 5 mg 04/29/24 12:15 05/03/24 07:52 Apixaban 2.5 Mg Tablet PO 05/29/24 12:14 5 mg BID JANETTE Administration Aspirin 81 mg 04/29/24 12:15 05/03/24 07:52 Aspirin Ec 81 Mg Tabec PO 05/29/24 12:14 81 mg QDAY JANETTE Administration Atorvastatin Calcium 40 mg 04/29/24 21:00 05/02/24 20:44 Atorvastatin Calcium 20 Mg Tablet PO 05/29/24 20:59 40 mg HS JANETTE Administration Bumetanide 2 mg 05/01/24 09:00 05/03/24 07:50 Bumetanide Inj 0.25 Mg/Ml Vial 4 Ml IVP 05/31/24 08:59 2 mg QDAY JANETTE Administration Folic Acid 1 mg 04/29/24 12:30 05/03/24 07:52 Folic Acid 1 Mg Tablet PO 05/04/24 12:29 1 mg BID JANETTE Administration Lorazepam 0.5 mg 05/03/24 10:53 Lorazepam 0.5 Mg Tablet PO 05/08/24 10:52 Q2H PRN CIWA Score 2-6 Lorazepam 1 mg 05/03/24 10:53 Lorazepam 0.5 Mg Tablet PO 05/08/24 10:52 Q2H PRN CIWA SCORE 7-11 Lorazepam 2 mg 05/03/24 10:53 05/03/24 10:58 Lorazepam 0.5 Mg Tablet PO 05/08/24 10:52 2 mg Q2H PRN Administration CIWA SCORE 12-15 Metoprolol Succinate 25 mg 05/02/24 09:00 05/03/24 07:50 Metoprolol Succinate Xl 25 Mg Tabcr PO 06/01/24 08:59 25 mg BID JANETTE Administration Ondansetron HCl 4 mg 04/29/24 11:54 Ondansetron Inj 2 Mg/Ml Inj 2 Ml IV 05/29/24 11:53 Q6H PRN NAUSEA OR VOMITING Protocol Sennosides 1 tab 04/29/24 11:54 Senna Tablet PO 05/29/24 11:53 QDAY PRN constipation Protocol Sodium Chloride 3 ml 04/29/24 08:02 04/29/24 08:46 Sodium Chloride Rt Lacie 0.9% 3 Ml Nebu INH 05/29/24 08:01 3 ml PRN PRN Administration SOLN Thiamine HCl 100 mg 04/29/24 12:30 05/03/24 07:52 Thiamine 100 Mg Tablet PO 05/04/24 12:29 100 mg BID JANETTE Administration Plan Assessment & Plan: Patient is 63 years old male with past medical history of HFrEF (EF 15-20% 01/2024), HTN, HLD, methamphetamine and alcohol use, chronic left foot osteomyelitis, hepatitis C, noncompliant with medication, homelessness, who presents to the ED complaining of shortness of breath. 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 #History of hypertension. #Chronic apical thrombus left ventricle -Patient complains of shortness of breath, unable to speak in full sentences, complains of orthopnea, denies PND. -Patient is noncompliant with medications outpatient, has multiple visits to emergency department for similar complaints -Chest x-ray shows moderate CHF, patient has 2+ bilateral lower extremity edema, crackles heard bilaterally -Last echo was done in January 2024 shows ejection fraction 15 to 20%, severe global hypokinesis, dilated left ventricle, large thrombus near apex 1.5 and 1.8 cm, moderate right ventricular dilation, decreased right ventricular function, severe biatrial dilation -BNP 2769 on admission -04/29/24: Patient is net -8.5 L, patient's weight decreased by 3 Kg, net urine output 9.6 L in 24 hours. -04/30/24: Patient is -390 mL, net urine output 2.25 L in 24 hours. -Patient refusing quality assurance monitor body, refusing fluid restriction, refusing strict GABRIELLE's. Plan: -Continue Bumex 2 mg once daily -Continue metoprolol succinate 25 mg twice daily -Fluid restriction 1500 cc -Strict I&O, daily weight check -Cardiac Diet, fluid restriction 1500 cc -Avoid cardiotoxic medications -DuoNeb as needed -Private Inquiry Agent Dr. Tsang consulted, appreciate recommendations -Monitor tele -continue Eliquis 5 mg p.o. twice daily -Will hold Entresto due to GEOVANY. #NSTEMI type II, demand ischemia #History of hyperlipidemia. -On admission Troponin 0.364 -> 1.921 -> 1.532 -EKG showed sinus rhythm -Denied any chest pain, arm numbness, dizziness. -TSH 3.95 hemoglobin A1c 5.6 -Follow lipid panel in a.m. Plan: -Continue aspirin and atorvastatin -Private Inquiry Agent consulted, appreciate recommendations -Monitor tele #GEOVANY On CKD? -Creatinine 1.6 BUN 30, EGFR 48, on admission Plan: -Renally dose medications -Avoid nephrotoxic agents -Monitor CMP #Alcohol dependence with withdrawal #Transaminitis Patient reports daily use of alcohol 6 pack beer for the last 3 years, last drink was yesterday. AST 72, T. bili 1.9, ALT 45, alk phos 169 CIWA score 19 in a.m. Discontinued Librium Plan -CIWA protocol, Ativan as needed -Restraints as needed -Monitor CMP daily -Alcohol cessation advised #Substance use disorder. #Homelessness. #Methamphetamine Use #History of hepatitis C. Uses methamphetamine and drinks alcohol daily. Urine tox screen positive for methamphetamine Plan -Referred to social media senior associate consult. #Chronic left foot osteomyelitis -Patient was diagnosed with left foot osteomyelitis in June 2022. -Denies any pain currently -Reported completing oral antibiotic treatment outpatient Health maintenance: Disposition: Telemetry Diet: Cardiac diet, fluid restriction 1500 cc GI prophylaxis: Not indicated DVT prophylaxis: SCDs, Eliquis Code: Full code Case discussed with Attending Dr. Ortega. Leilani Rojas PGY1 Attending Provider Attestation/Addendum I reviewed labs, imaging, EKG, home medications and prior available records. Face to face evaluation was performed by me. I have personally examined the patient and discussed assessment and plan with the IM team. I reviewed the resident note and agree with the plan with exceptions as below. CHF exacerbation: In the setting of history of heart failure with severely reduced EF secondary to methamphetamine abuse. Continue IV diuresis. Monitor I's and O's. Fluid restriction. Cardiology is following. Hyperactive agitation: Likely in the setting of personality changes. Requiring IV Ativan. Requiring upper extremity to point restraint to protect IVs and lines. Acute hypoxic respiratory failure: In the setting of CHF exacerbation. Management as above. Wean off oxygen as tolerated. History of left ventricular thrombus: Continue home Eliquis.
[2024-05-03] MEDS: ALBUTEROL/IPRATROPIUM (Duoneb) RT SOL 3 ML NEBU INH ×2 (13:33→19:57)
--- NOTE | 2024-05-03 14:41 | PC.NURSE ---
pt. refused to take oral ativan, pt. is confused and combative. Unable to educate patient.
--- NOTE | 2024-05-03 14:42 | PC.NURSE ---
Pt. agreed to take Po Ativan for CHarge Nurse Silverio pt. does not respond well to Female staff
[2024-05-03] MEDS: LORazepam 0.5 MG TABLET 1 MG PO (14:52)
--- NOTE | 2024-05-03 14:54 | ESPR_ITS ---
<Statement entered by Misael Tsang MD - 05/06/24 08:54> I personally examined the patient reviewed all the findings patient is doing better cardiac pickard heart failure symptoms improved agree with the treatment plan recommendation as documented by Dr. Collier PGY 2 continue to monitor the patient for heart failure lower the dose of diuretic patient appears to be having withdrawal symptoms from alcohol and methamphetamine. Documentation for date of: 05/03/24 Subjective Subjective Interval history: This 64-year-old male with PMHx HFrEF (15-20%, EF Jan 2024), HTN, substance abuse (Meth), Chronic osteomyelitis of the L foot, hep C and medication non- compliance presented to the ED on 04/29/2024 with chief complaint of worsening shortness of breath, chest pain and cough from last couple of days. He denied any nausea or vomiting or diarrhea. No fever or chills. Patient did have a history of LV thrombus for which he was prescribed Eliquis however patient was not taking it. EKG showed normal sinus rhythm, heart rate 85, no ST elevation or depression seen. No PVCs. QTc 518. First-degree AV block it. Old Q waves noted in lead to 3 and aVF. Labs revealed elevated BUN and creatinine 1.6 consistent with CKD. BNP 2800. Troponin elevated at 1.9 down trended to 1.5. U tox positive for methamphetamines. Chest x-ray showed moderate CHF. Vitals showed elevated blood pressure 161/129, mildly tachycardic heart rate 95, respiratory rate 20 and afebrile. He was saturating at 97% on 2 L NC. Patient was given Lasix 80 mg x 1, nitroglycerin x 1, hydralazine 10 mg x 1 and Eliquis 5 mg x 1 in the ED. Cardiology is consulted for CHF exacerbation and LV thrombus. Patient was seen and examined at the bedside. He reported having worsening shortness of breath with mild chest pain and cough from last couple of days.He does have component of non compliance however has been seen by resident [facility]. We recommended to continue Bumex 2 mg IV twice daily, Eliquis 5 mg 2 times a day, fluid restriction, strict GABRIELLE's and daily weight.Continue aspirin 81 mg once a day. Ordered repeat echocardiogram to evaluate EF and LV thrombus. Will likely Consider adding Entresto 24/ 1 tablet twice daily and metoprolol XL 25 mg once a day given history of heart failure once stable and well diuresed. Cardiology will follow the case closely. 04/30/2024: Patient was seen and examined at the bedside. Patient reported improvement in his shortness of breath and lower extremity swelling. Patient had a urine output of more than 9 L with negative balance of 8 L. Blood pressure remained stable. Kidney function showed improvement with creatinine from 1.6->1.5. Slight drop in hemoglobin to 12.6. Electrolyte panel revealed mild hypokalemia which was repleted. Troponin I down trended. Recommended to decrease diuresis to 2 mg Bumex once a day. No further new recommendations. Continue diuresis, strict GABRIELLE's and fluid restriction for now. Follow-up on echocardiogram. Consider adding low-dose beta-augustine and Entresto upon discharge. All labs and orders were reviewed. 05/02/2024: Patient was seen and examined at the bedside. Patient was short of breath and was withdrawing from alcohol and meth. He has been managed on CIWA protocol as needed. Recommended to continue Bumex 2 mg once a day, started metoprolol 25 mg twice a day and echocardiogram was deferred given recent echo in January. Continue fluid restriction, strict GABRILELE's and daily weight. All labs and orders were reviewed. 05/03/24: Patient was seen and examined at the bedside, He looked very agitated and disturbed, Librium was discontinued and seen on wrist restraints. Vitals are stable. Labs showed thrombocytopenia. Kidney functions shows creatinine 1.7. Rec to continue bumex 2 mg once a day although didnt show good diuresis output today , change metoprolol XL 25 mg to 50 once a day or keep the same. Manage underlying condition.CIWA score 11. Continue CIWA protocol. Exam Vital Signs Temp Pulse Resp BP Pulse Ox O2 Del Method O2 Flow Rate 97.4 F 68 20 112/86 H 98 Oxy Mask 5 05/03/24 12:00 05/03/24 13:35 05/03/24 13:35 05/03/24 12:00 05/03/24 13:35 05/03/24 12:00 05/03/24 12:00 Narrative Exam GENERAL APPEARANCE: Patient is AOx2, male in mild distress. Saturating well on RA on wrist restraints HEENT: NC, AT. MMM. EOMI, clear conjunctiva, oropharynx clear. Improvement in JVD NECK: Supple without lymphadenopathy. No stiffness or restricted ROM. HEART: Regular rate and regular rhythm, normal S1/S2, no m/r/g LUNGS: Bilateral crackles heard on auscultation ABDOMEN: Soft, nontender, nondistended with good bowel sounds heard. BACK: No CVAT, no obvious deformity. EXTREMITIES: 2+ pitting edema noticed with chronic venous stasis on both lower extremities NEUROLOGICAL: Grossly nonfocal. Alert and oriented, moving all 4 extremities. CN not formally tested but appear grossly intact. Skin: Warm and dry without any rash. Psych: Withdrawing from meth and alcohol CIWA 11 Objective Labs 05/03/24 05:07 05/03/24 05:07 Labs: Laboratory Results - last 24 hr 05/03/24 05:07 WBC 8.0 RBC 4.72 Hgb 13.5 Hct 41.0 MCV 87 MCH 28.6 MCHC 32.9 RDW Std Deviation 55.2 H Plt Count 72 L Neut % (Auto) 60 Lymph % (Auto) 22 [place] % (Auto) 11 Eos % (Auto) 5 Baso % (Auto) 1 Neut # (Auto) 4.8 Lymph # (Auto) 1.8 [place] # (Auto) 0.9 H Eos # (Auto) 0.4 Baso # (Auto) 0.1 Immature Gran # (Auto) 0.03 H Absolute Nucleated RBC 0.00 Immature Gran % 0 Nucleated RBC % 0 Sodium 136 Potassium 4.0 Chloride 101 Carbon Dioxide 25.6 Anion Gap 9 BUN 32 H Creatinine 1.7 H Estim Creat Clear Calc 43.0 L eGFR 45 L BUN/Creatinine Ratio 19 Glucose 120 H Calculated Osmolality 279 Calcium 8.5 Corrected Calcium 8.7 Magnesium 2.0 Total Bilirubin 1.0 AST 34 ALT 22 Alkaline Phosphatase 137 H Total Protein 7.1 Albumin 3.8 Globulin 3.3 Albumin/Globulin Ratio 1.2 Misc Test Result Platelets confirmed Quality Measures Quality Measures VTE prophylaxis (Eliquis 5 mg twice daily) Assessment & Plan Assessment Current Active Medications: Generic Name Dose Route Start Last Admin Trade Name Freq PRN Reason Stop Dose Admin Acetaminophen 650 mg 04/29/24 11:54 Acetaminophen 325 Mg Tablet PO 05/29/24 11:53 Q6H PRN Pain and Fever >100.3 Albuterol/Ipratropium 3 ml 05/01/24 07:30 05/03/24 13:33 Albuterol/Ipratropium (Duoneb) Rt Lacie 3 Ml Nebu INH 05/31/24 07:29 3 ml Q6HRRT JANETTE Administration Apixaban 5 mg 04/29/24 12:15 05/03/24 07:52 Apixaban 2.5 Mg Tablet PO 05/29/24 12:14 5 mg BID JANETTE Administration Aspirin 81 mg 04/29/24 12:15 05/03/24 07:52 Aspirin Ec 81 Mg Tabec PO 05/29/24 12:14 81 mg QDAY JANETTE Administration Atorvastatin Calcium 40 mg 04/29/24 21:00 05/02/24 20:44 Atorvastatin Calcium 20 Mg Tablet PO 05/29/24 20:59 40 mg HS JANETTE Administration Bumetanide 2 mg 05/01/24 09:00 05/03/24 07:50 Bumetanide Inj 0.25 Mg/Ml Vial 4 Ml IVP 05/31/24 08:59 2 mg QDAY JANETTE Administration Folic Acid 1 mg 04/29/24 12:30 05/03/24 07:52 Folic Acid 1 Mg Tablet PO 05/04/24 12:29 1 mg BID JANETTE Administration Lorazepam 0.5 mg 05/03/24 10:53 Lorazepam 0.5 Mg Tablet PO 05/08/24 10:52 Q2H PRN CIWA Score 2-6 Lorazepam 1 mg 05/03/24 10:53 Lorazepam 0.5 Mg Tablet PO 05/08/24 10:52 Q2H PRN CIWA SCORE 7-11 Lorazepam 2 mg 05/03/24 10:53 05/03/24 10:58 Lorazepam 0.5 Mg Tablet PO 05/08/24 10:52 2 mg Q2H PRN Administration CIWA SCORE 12-15 Metoprolol Succinate 25 mg 05/02/24 09:00 05/03/24 07:50 Metoprolol Succinate Xl 25 Mg Tabcr PO 06/01/24 08:59 25 mg BID JANETTE Administration Ondansetron HCl 4 mg 04/29/24 11:54 Ondansetron Inj 2 Mg/Ml Inj 2 Ml IV 05/29/24 11:53 Q6H PRN NAUSEA OR VOMITING Protocol Sennosides 1 tab 04/29/24 11:54 Senna Tablet PO 05/29/24 11:53 QDAY PRN constipation Protocol Sodium Chloride 3 ml 04/29/24 08:02 04/29/24 08:46 Sodium Chloride Rt Lacie 0.9% 3 Ml Nebu INH 05/29/24 08:01 3 ml PRN PRN Administration SOLN Thiamine HCl 100 mg 04/29/24 12:30 05/03/24 07:52 Thiamine 100 Mg Tablet PO 05/04/24 12:29 100 mg BID JANETTE Administration Plan This 64-year-old male with PMHx HFrEF (15-20%, EF Jan 2024), HTN, substance abuse (Meth), Chronic osteomyelitis of the L foot, hep C and medication non- compliance presented to the ED on 04/29/2024 with chief complaint of worsening shortness of breath, chest pain and cough from last couple of days. Admitted for acute hypoxic respiratory failure due to HFrEF EF 15% and meth induced cardiomyopathy. # Acute Hypoxic resp failure # Meth induced Toxic Cardiomyopahty # HFrEF, EF 15-20% per January 2024 # LV thrombus per echo from January on Eliquis # Hypertensive urgency # Methamphetamine abuse disorder ? Patient presented with worsening shortness of breath, chest pain and mild cough for last couple of days. He also has lower extremity swelling/edema. Prominent JVD noticed.Echocardiogram from January 2024 showed dilated LV. Severe systolic dysfunction. Severe global hypokinesis. Large thrombus near apex 1.5 x 1.8 cm. Moderate RV dilation. Severe biatrial dilation. Ascending aorta mildly dilated 3.6 cm. Mild to moderate MR. ?Patient was given Lasix 80 mg x 1, hydralazine 10 mg x 1. ?Patient was prescribed Lasix 40 mg once a day, Eliquis 5 mg twice a day and Entresto at home ? Patient has significant improvement in shortness of breath and lower extremity swelling. Urine output showed negative evidence of 8 L. ? Patient seems to be withdrawing from alcohol and meth therefore will be kept for close monitoring and on CIWA protocol.CIWA score 11 Plan: ? Recommended to continue Bumex 2 mg once a day ? Cont metoprolol succinate 25 mg twice daily or change to metoprolol succinate XL 50 mg once a day ? Monitor strict GABRIELLE's, fluid restriction 1500 cc daily, daily weight ? Kidney function remains stable at 1.7 ? Monitor vitals closely ? Replete electrolytes as necessary ? Keep magnesium above 2 and potassium above 4 ? Patient needs close follow-up for compliance of medications ? Continue CIWA protocol and Librium as needed # NSTEMI type II likely supply demand ischemia ?Initial troponin I was elevated at 1.9 down trended to 1.5. ? EKG did not show new ST-T changes. Plan: ? Troponin I down trended ? Monitor patient for signs symptoms of chest pain or shortness of breath ? Monitor vitals Other active problems: # GEOVANY on CKD stage IIIa # Normocytic anemia # Thrombocytopenia # Electrolyte disturbance # Hypokalemia # Alcohol withdrawal alcohol use disorder on restraints # History of chronic osteomyelitis left foot, # History of hep C and medication noncompliance Rest of the management as per primary care team. -- Thank you very much for consulting cardiology team. Recommended to continue Bumex 2 mg once a day, continue metoprolol succinate 25 mg twice daily and continue CIWA protocol as needed for patient's withdrawal symptoms. Plan of care discussed with neon sign worker, Dr. Sharan Collier MD, PGY 2
--- NOTE | 2024-05-03 16:25 | PC.NURSE ---
Dr. ochoa aware PRN ativan should be Q2 to reflect Q2 CIWA. Dr. Ochoa states yes I will make that change to the orders next.
[2024-05-03] MEDS: LORazepam 2 MG/ML VIAL 1 MG IV (16:27)
[2024-05-03] MEDS: ATORVASTATIN CALCIUM 20 MG TABLET 40 MG PO (21:00)
[2024-05-04] VITALS (14 sets, daily range): BP systolic 100–126; BP diastolic 68–104; PULSE 60–114; RESP 10–100; TEMP 36.2–36.8; O2SAT 95–100
[2024-05-04] MEDS: LORazepam 2 MG/ML VIAL 1 MG IV (00:05)
[2024-05-04 05:33] LABS: Basophils # (Auto) 0.1 Thou/mm3 (0.0-0.2); Basophils % (Auto) 1 % (0-2.5); Eosinophils # (Auto) 0.3 Thou/mm3 (0.0-0.5); Eosinophils % (Auto) 4 % (0-10); Hematocrit 43.8 % (41.0-53.0); Hemoglobin 14.4 g/dL (13.5-16.0); Immature Granulocytes % (Auto) 0 % (0-0); Immature Granulocytes Auto 0.03 Thou/mm3 (0.00-0.00); Lymphocytes # (Auto) 1.3 Thou/mm3 (1.0-4.8); Lymphocytes % (Auto) 16 % (10-50); Mean Corpuscular HGB Conc 32.9 g/dl (31.0-37.0); Mean Corpuscular Hemoglobin 28.6 pg (25.0-35.0); Mean Corpuscular Volume 87 fL (80-100); Monocytes # (Auto) 0.8 Thou/mm3 (0.0-0.8); Monocytes % (Auto) 10 % (0-12); Neutrophils # (Auto) 5.4 Thou/mm3 (1.8-7.7); Neutrophils % (Auto) 68 % (37-80); Nucleated Red Blood Cell % 0 /100 WBC (0); Platelet Count 95 Thou/mm3 (140-440); Red Blood Count 5.03 Miln/mm3 (4.50-5.90); White Blood Count 7.9 Thou/mm3 (3.8-10.6)
[2024-05-04] MEDS: ALBUTEROL/IPRATROPIUM (Duoneb) RT SOL 3 ML NEBU INH ×2 (06:27→12:29)
[2024-05-04 06:45] LABS: Alanine Aminotransferase 21 U/L (10-49); Albumin, Serum 4.1 gm/dL (3.4-4.8); Albumin/Globulin Ratio 1.2 (1.2-2.2); Alkaline Phosphatase 136 U/L (46-116); Anion Gap 9 (7-16); Aspartate Amino Transferase 32 U/L (0-34); BUN/Creatinine Ratio 21 Ratio (12-20); Bilirubin,Total 1.2 mg/dL (0.3-1.2); Blood Urea Nitrogen 35 mg/dL (9-23); Calcium 8.9 mg/dL (8.3-10.6); Calcium (Corrected) 8.9 mg/dL (8.5-10.1); Carbon Dioxide 27.2 mMol/L (20.0-31.0); Chloride 102 mMol/L (98-107); Creatinine (Component) 1.7 mg/dL (0.6-1.3); Globulin 3.4 gm/dL (2.3-3.5); Glucose 134 mg/dL (74-106); Osmolality,Calculated 285 (275-295); Potassium 3.6 mMol/L (3.4-5.1); Sodium 138 mMol/L (136-145); Total Protein 7.5 gm/dL (5.7-8.2); eGFR 45 See Note
[2024-05-04] MEDS: METOPROLOL SUCCINATE XL 25 MG TABCR PO ×2 (09:18→20:58)
[2024-05-04] MEDS: APIXABAN 2.5 MG TABLET 5 MG PO ×2 (09:19→20:59)
[2024-05-04] MEDS: POTASSIUM CHLORIDE 10% 20 MEQ/15 ML UDC 40 MEQ PO (09:19)
[2024-05-04] MEDS: THIAMINE 100 MG TABLET PO (09:19)
[2024-05-04] MEDS: BUMETANIDE INJ 0.25 MG/ML VIAL 4 ML 2 MG IVP (09:19)
[2024-05-04] MEDS: ASPIRIN EC 81 MG TABEC PO (09:19)
[2024-05-04] MEDS: FOLIC ACID 1 MG TABLET PO (09:19)
--- NOTE | 2024-05-04 10:27 | PC.SS ---
Follow up note: Pt is currently on 2 liters of O2. Wean off O2. [facility]
--- NOTE | 2024-05-04 12:00 | PC.NURSE ---
Joya shrestha called, pt. in bathroom with sitter and refused to go back to bed. Pt. not answering questions appropriately and uncooperative. When security arrived pt. returned to bed. Once pt. in bed pt. resting and cooperative for male staff only.
--- NOTE | 2024-05-04 13:58 | PD.RESPRO ---
Documentation for date of: 05/04/24 Subjective Subjective Interval history: Patient seen at bedside. Patient still agitated at times, refusing treatment at times. Patient's oxygen requirement remains increased, patient currently on 2 L nasal cannula. Patient is homeless and requires no supplemental oxygen at baseline. Patient's renal function still not at baseline. Will continue IV diuresis. Will continue to monitor the patient. Exam Vital Signs Temp Pulse Resp BP Pulse Ox O2 Del Method O2 Flow Rate 98.2 F 64 25 H 111/90 H 99 Nasal Cannula 2 05/04/24 12:00 05/04/24 12:31 05/04/24 12:31 05/04/24 12:00 05/04/24 12:31 05/04/24 12:00 05/04/24 12:31 FiO2 2 05/04/24 12:31 Narrative Exam GENERAL APPEARANCE: Patient is AOx3, generally well-appearing male in mild distress. HEENT: NC, AT. MMM. EOMI, clear conjunctiva, oropharynx clear. NECK: Supple without lymphadenopathy. No stiffness or restricted ROM. HEART: Regular rate and regular rhythm, normal S1/S2, no m/r/g LUNGS: Bilateral crackles heard on auscultation, wheezing heard bilaterally ABDOMEN: Soft, nontender, nondistended with good bowel sounds heard. BACK: No CVAT, no obvious deformity. EXTREMITIES: No edema noticed on both lower extremities NEUROLOGICAL: Grossly nonfocal. Alert and oriented, moving all 4 extremities. CN not formally tested but appear grossly intact. Skin: Warm and dry without any rash. Objective Labs 05/05/24 05:10 05/05/24 05:10 Labs: Laboratory Results - last 24 hr 05/04/24 05:00 WBC 7.9 RBC 5.03 Hgb 14.4 Hct 43.8 MCV 87 MCH 28.6 MCHC 32.9 RDW Std Deviation 56.0 H Plt Count 95 L D Neut % (Auto) 68 Lymph % (Auto) 16 [place] % (Auto) 10 Eos % (Auto) 4 Baso % (Auto) 1 Neut # (Auto) 5.4 Lymph # (Auto) 1.3 [place] # (Auto) 0.8 Eos # (Auto) 0.3 Baso # (Auto) 0.1 Immature Gran # (Auto) 0.03 H Absolute Nucleated RBC 0.00 Immature Gran % 0 Nucleated RBC % 0 Sodium 138 Potassium 3.6 Chloride 102 Carbon Dioxide 27.2 Anion Gap 9 BUN 35 H Creatinine 1.7 H Estim Creat Clear Calc 43.0 L eGFR 45 L BUN/Creatinine Ratio 21 H Glucose 134 H Calculated Osmolality 285 Calcium 8.9 Corrected Calcium 8.9 Magnesium 2.0 Total Bilirubin 1.2 AST 32 ALT 21 Alkaline Phosphatase 136 H Total Protein 7.5 Albumin 4.1 Globulin 3.4 Albumin/Globulin Ratio 1.2 Quality Measures Quality Measures VTE prophylaxis (Eliquis 5 mg twice daily) Assessment & Plan Assessment Current Active Medications: Generic Name Dose Route Start Last Admin Trade Name Freq PRN Reason Stop Dose Admin Acetaminophen 650 mg 04/29/24 11:54 Acetaminophen 325 Mg Tablet PO 05/29/24 11:53 Q6H PRN Pain and Fever >100.3 Albuterol/Ipratropium 3 ml 05/01/24 07:30 05/04/24 12:29 Albuterol/Ipratropium (Duoneb) Rt Lacie 3 Ml Nebu INH 05/31/24 07:29 3 ml Q6HRRT JANETTE Administration Apixaban 5 mg 04/29/24 12:15 05/04/24 09:19 Apixaban 2.5 Mg Tablet PO 05/29/24 12:14 5 mg BID JANETTE Administration Aspirin 81 mg 04/29/24 12:15 05/04/24 09:19 Aspirin Ec 81 Mg Tabec PO 05/29/24 12:14 81 mg QDAY JANETTE Administration Atorvastatin Calcium 40 mg 04/29/24 21:00 05/03/24 21:00 Atorvastatin Calcium 20 Mg Tablet PO 05/29/24 20:59 40 mg HS JANETTE Administration Bumetanide 2 mg 05/01/24 09:00 05/04/24 09:19 Bumetanide Inj 0.25 Mg/Ml Vial 4 Ml IVP 05/31/24 08:59 2 mg QDAY JANETTE Administration Lorazepam 2 mg 05/03/24 15:58 Lorazepam 2 Mg/Ml Vial IVP X1 PRN Breakthrough Agitation Lorazepam 1 mg 05/03/24 16:46 05/04/24 00:05 Lorazepam 2 Mg/Ml Vial IV 05/08/24 15:57 1 mg Q2H PRN Administration CIWA SCORE 14-19 Lorazepam 0.5 mg 05/03/24 16:46 Lorazepam 2 Mg/Ml Vial IV 05/08/24 15:57 Q2H PRN CIWA SCORE 8-13 Lorazepam 2 mg 05/03/24 16:46 Lorazepam 2 Mg/Ml Vial IV 05/08/24 15:57 Q2H PRN CIWA SCORE 20-25 Metoprolol Succinate 25 mg 05/02/24 09:00 05/04/24 09:18 Metoprolol Succinate Xl 25 Mg Tabcr PO 06/01/24 08:59 25 mg BID JANETTE Administration Ondansetron HCl 4 mg 04/29/24 11:54 Ondansetron Inj 2 Mg/Ml Inj 2 Ml IV 05/29/24 11:53 Q6H PRN NAUSEA OR VOMITING Protocol Sennosides 1 tab 04/29/24 11:54 Senna Tablet PO 05/29/24 11:53 QDAY PRN constipation Protocol Sodium Chloride 3 ml 04/29/24 08:02 04/29/24 08:46 Sodium Chloride Rt Lacie 0.9% 3 Ml Nebu INH 05/29/24 08:01 3 ml PRN PRN Administration SOLN Plan Assessment & Plan: Patient is 63 years old male with past medical history of HFrEF (EF 15-20% 01/2024), HTN, HLD, methamphetamine and alcohol use, chronic left foot osteomyelitis, hepatitis C, noncompliant with medication, homelessness, who presents to the ED complaining of shortness of breath. 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 #History of hypertension. #Chronic apical thrombus left ventricle -Patient complains of shortness of breath, unable to speak in full sentences, complains of orthopnea, denies PND. -Patient is noncompliant with medications outpatient, has multiple visits to emergency department for similar complaints -Chest x-ray shows moderate CHF, patient has 2+ bilateral lower extremity edema, crackles heard bilaterally -Last echo was done in January 2024 shows ejection fraction 15 to 20%, severe global hypokinesis, dilated left ventricle, large thrombus near apex 1.5 and 1.8 cm, moderate right ventricular dilation, decreased right ventricular function, severe biatrial dilation -BNP 2769 on admission -04/29/24: Patient is net -8.5 L, patient's weight decreased by 3 Kg, net urine output 9.6 L in 24 hours. -04/30/24: Patient is -390 mL, net urine output 2.25 L in 24 hours. -Patient refusing traffic monitor specialist, refusing fluid restriction, refusing strict GABRIELLE's. Plan: -Continue Bumex 2 mg once daily -Continue metoprolol succinate 25 mg twice daily -Fluid restriction 1500 cc -Strict I&O, daily weight check -Cardiac Diet, fluid restriction 1500 cc -Avoid cardiotoxic medications -DuoNeb as needed -Production Maintenance Technician Dr. Tsang consulted, appreciate recommendations -Monitor tele -continue Eliquis 5 mg p.o. twice daily #NSTEMI type II, demand ischemia #History of hyperlipidemia. -On admission Troponin 0.364 -> 1.921 -> 1.532 -EKG showed sinus rhythm -Denied any chest pain, arm numbness, dizziness. -TSH 3.95 hemoglobin A1c 5.6 -Follow lipid panel in a.m. Plan: -Continue aspirin and atorvastatin -Production Maintenance Technician consulted, appreciate recommendations -Monitor tele #GEOVANY On CKD? -Creatinine 1.6 BUN 30, EGFR 48, on admission Plan: -Renally dose medications -Avoid nephrotoxic agents -Monitor CMP #Alcohol dependence with withdrawal #Transaminitis Patient reports daily use of alcohol 6 pack beer for the last 3 years, last drink was yesterday. AST 72, T. bili 1.9, ALT 45, alk phos 169 CIWA score 19 in a.m. Discontinued Librium Plan -CIWA protocol, Ativan as needed -Restraints as needed -Monitor CMP daily -Alcohol cessation advised #Substance use disorder. #Homelessness. #Methamphetamine Use #History of hepatitis C. Uses methamphetamine and drinks alcohol daily. Urine tox screen positive for methamphetamine Plan -Referred to social worker clinical consult. #Chronic left foot osteomyelitis -Patient was diagnosed with left foot osteomyelitis in June 2022. -Denies any pain currently -Reported completing oral antibiotic treatment outpatient Health maintenance: Disposition: Telemetry Diet: Cardiac diet, fluid restriction 1500 cc GI prophylaxis: Not indicated DVT prophylaxis: SCDs, Eliquis Code: Full code Case discussed with Attending Dr. Galloway. Leilani Rojas PGY1 Attending Provider Attestation/Addendum Ailin Parker, , attest that I was physically present for the [place] portions of the service and evaluated the patient with the resident and I reviewed and discussed the case with the resident and agree with the resident's findings and plans of care as documented above Patient seen and evaluated this AM. Patient is in some distress as patient had a CODE shrestha after he had gone to the bathroom without supplemental O2. Patient complains of being very short of breath. He is, however, tearful since he is anxious to go home. Patient willing to stay and comply after he began to experience shortness of breath. Continue with IV diuresis. F/u with cardiology recommendations. Patient improved on 3L/NC. Will titrate as tolerated.
--- NOTE | 2024-05-04 14:32 | ESPR_ITS ---
<Statement entered by Misael Tsang MD - 05/06/24 09:06> I personally examined the patient evaluated in the telemetry appears to be clinically stable from cardiac point of view apparently having withdrawal problems continue to monitor the patient anticoagulation is continued for ventricular thrombus all the findings are reviewed agree with the treatment plan recommendation as performed by Dr. Collier PGY 2 Documentation for date of: 05/04/24 Subjective Subjective Interval history: This 64-year-old male with PMHx HFrEF (15-20%, EF Jan 2024), HTN, substance abuse (Meth), Chronic osteomyelitis of the L foot, hep C and medication non- compliance presented to the ED on 04/29/2024 with chief complaint of worsening shortness of breath, chest pain and cough from last couple of days. He denied any nausea or vomiting or diarrhea. No fever or chills. Patient did have a history of LV thrombus for which he was prescribed Eliquis however patient was not taking it. EKG showed normal sinus rhythm, heart rate 85, no ST elevation or depression seen. No PVCs. QTc 518. First-degree AV block it. Old Q waves noted in lead to 3 and aVF. Labs revealed elevated BUN and creatinine 1.6 consistent with CKD. BNP 2800. Troponin elevated at 1.9 down trended to 1.5. U tox positive for methamphetamines. Chest x-ray showed moderate CHF. Vitals showed elevated blood pressure 161/129, mildly tachycardic heart rate 95, respiratory rate 20 and afebrile. He was saturating at 97% on 2 L NC. Patient was given Lasix 80 mg x 1, nitroglycerin x 1, hydralazine 10 mg x 1 and Eliquis 5 mg x 1 in the ED. Cardiology is consulted for CHF exacerbation and LV thrombus. Patient was seen and examined at the bedside. He reported having worsening shortness of breath with mild chest pain and cough from last couple of days.He does have component of non compliance however has been seen by resident in [facility]. We recommended to continue Bumex 2 mg IV twice daily, Eliquis 5 mg 2 times a day, fluid restriction, strict GABRIELLE's and daily weight.Continue aspirin 81 mg once a day. Ordered repeat echocardiogram to evaluate EF and LV thrombus. Will likely Consider adding Entresto 1 tablet twice daily and metoprolol XL 25 mg once a day given history of heart failure once stable and well diuresed. Cardiology will follow the case closely. 04/30/2024: Patient was seen and examined at the bedside. Patient reported improvement in his shortness of breath and lower extremity swelling. Patient had a urine output of more than 9 L with negative balance of 8 L. Blood pressure remained stable. Kidney function showed improvement with creatinine from 1.6->1.5. Slight drop in hemoglobin to 12.6. Electrolyte panel revealed mild hypokalemia which was repleted. Troponin I down trended. Recommended to decrease diuresis to 2 mg Bumex once a day. No further new recommendations. Continue diuresis, strict GABRIELLE's and fluid restriction for now. Follow-up on echocardiogram. Consider adding low-dose beta-augustine and Entresto upon discharge. All labs and orders were reviewed. 05/02/2024: Patient was seen and examined at the bedside. Patient was short of breath and was withdrawing from alcohol and meth. He has been managed on CIWA protocol as needed. Recommended to continue Bumex 2 mg once a day, started metoprolol 25 mg twice a day and echocardiogram was deferred given recent echo in January. Continue fluid restriction, strict GABRIELLE's and daily weight. All labs and orders were reviewed. 05/03/24: Patient was seen and examined at the bedside, He looked very agitated and disturbed, Librium was discontinued and seen on wrist restraints. Vitals are stable. Labs showed thrombocytopenia. Kidney functions shows creatinine 1.7. Rec to continue bumex 2 mg once a day although didnt show good diuresis output today , change metoprolol XL 25 mg to 50 once a day or keep the same. Manage underlying condition.CIWA score 11. Continue CIWA protocol. 05/04/2024: Patient was seen and examined at the bedside. Vitals reviewed soft blood pressure, tachypnea and 99% saturation on 2 L NC. Chemistry panel showed stable white count and hemoglobin. Thrombocytopenia. Chemistry panel showed BUN 35 and creatinine 1.7 consistent with CKD. Patient's diuresis output 200 cc with positive balance of 760 cc. CIWA score 5. Recommended to continue Bumex 2 mg once a day metoprolol XL 25 once a day. Patient will not benefit from Entresto given CKD. Exam Vital Signs Temp Pulse Resp BP Pulse Ox O2 Del Method O2 Flow Rate 98.2 F 64 25 H 111/90 H 99 Nasal Cannula 2 05/04/24 12:00 05/04/24 12:31 05/04/24 12:31 05/04/24 12:00 05/04/24 12:31 05/04/24 12:00 05/04/24 12:31 FiO2 2 05/04/24 12:31 Narrative Exam GENERAL APPEARANCE: Patient is AOx2, male in mild distress. HEENT: NC, AT. MMM. EOMI, clear conjunctiva, oropharynx clear. Improvement in JVD NECK: Supple without lymphadenopathy. No stiffness or restricted ROM. HEART: Regular rate and regular rhythm, normal S1/S2, no m/r/g LUNGS: Bilateral crackles heard on auscultation ABDOMEN: Soft, nontender, nondistended with good bowel sounds heard. BACK: No CVAT, no obvious deformity. EXTREMITIES: 2+ pitting edema noticed with chronic venous stasis on both lower extremities NEUROLOGICAL: Grossly nonfocal. Alert and oriented, moving all 4 extremities. CN not formally tested but appear grossly intact. Skin: Warm and dry without any rash. Psych: Withdrawing from meth and alcohol CIWA 5 Objective Labs 05/04/24 05:00 05/04/24 05:00 Labs: Laboratory Results - last 24 hr 05/04/24 05:00 WBC 7.9 RBC 5.03 Hgb 14.4 Hct 43.8 MCV 87 MCH 28.6 MCHC 32.9 RDW Std Deviation 56.0 H Plt Count 95 L D Neut % (Auto) 68 Lymph % (Auto) 16 [place] % (Auto) 10 Eos % (Auto) 4 Baso % (Auto) 1 Neut # (Auto) 5.4 Lymph # (Auto) 1.3 [place] # (Auto) 0.8 Eos # (Auto) 0.3 Baso # (Auto) 0.1 Immature Gran # (Auto) 0.03 H Absolute Nucleated RBC 0.00 Immature Gran % 0 Nucleated RBC % 0 Sodium 138 Potassium 3.6 Chloride 102 Carbon Dioxide 27.2 Anion Gap 9 BUN 35 H Creatinine 1.7 H Estim Creat Clear Calc 43.0 L eGFR 45 L BUN/Creatinine Ratio 21 H Glucose 134 H Calculated Osmolality 285 Calcium 8.9 Corrected Calcium 8.9 Magnesium 2.0 Total Bilirubin 1.2 AST 32 ALT 21 Alkaline Phosphatase 136 H Total Protein 7.5 Albumin 4.1 Globulin 3.4 Albumin/Globulin Ratio 1.2 Quality Measures Quality Measures VTE prophylaxis (Eliquis 5 mg twice daily) Assessment & Plan Assessment Current Active Medications: Generic Name Dose Route Start Last Admin Trade Name Freq PRN Reason Stop Dose Admin Acetaminophen 650 mg 04/29/24 11:54 Acetaminophen 325 Mg Tablet PO 05/29/24 11:53 Q6H PRN Pain and Fever >100.3 Albuterol/Ipratropium 3 ml 05/01/24 07:30 05/04/24 12:29 Albuterol/Ipratropium (Duoneb) Rt Lacie 3 Ml Nebu INH 05/31/24 07:29 3 ml Q6HRRT JANETTE Administration Apixaban 5 mg 04/29/24 12:15 05/04/24 09:19 Apixaban 2.5 Mg Tablet PO 05/29/24 12:14 5 mg BID JANETTE Administration Aspirin 81 mg 04/29/24 12:15 05/04/24 09:19 Aspirin Ec 81 Mg Tabec PO 05/29/24 12:14 81 mg QDAY JANETTE Administration Atorvastatin Calcium 40 mg 04/29/24 21:00 05/03/24 21:00 Atorvastatin Calcium 20 Mg Tablet PO 05/29/24 20:59 40 mg HS JANETTE Administration Bumetanide 2 mg 05/01/24 09:00 05/04/24 09:19 Bumetanide Inj 0.25 Mg/Ml Vial 4 Ml IVP 05/31/24 08:59 2 mg QDAY JANETTE Administration Lorazepam 2 mg 05/03/24 15:58 Lorazepam 2 Mg/Ml Vial IVP X1 PRN Breakthrough Agitation Lorazepam 1 mg 05/03/24 16:46 05/04/24 00:05 Lorazepam 2 Mg/Ml Vial IV 05/08/24 15:57 1 mg Q2H PRN Administration CIWA SCORE 14-19 Lorazepam 0.5 mg 05/03/24 16:46 Lorazepam 2 Mg/Ml Vial IV 05/08/24 15:57 Q2H PRN CIWA SCORE 8-13 Lorazepam 2 mg 05/03/24 16:46 Lorazepam 2 Mg/Ml Vial IV 05/08/24 15:57 Q2H PRN CIWA SCORE 20-25 Metoprolol Succinate 25 mg 05/02/24 09:00 05/04/24 09:18 Metoprolol Succinate Xl 25 Mg Tabcr PO 06/01/24 08:59 25 mg BID JANETTE Administration Ondansetron HCl 4 mg 04/29/24 11:54 Ondansetron Inj 2 Mg/Ml Inj 2 Ml IV 05/29/24 11:53 Q6H PRN NAUSEA OR VOMITING Protocol Sennosides 1 tab 04/29/24 11:54 Senna Tablet PO 05/29/24 11:53 QDAY PRN constipation Protocol Sodium Chloride 3 ml 04/29/24 08:02 04/29/24 08:46 Sodium Chloride Rt Lacie 0.9% 3 Ml Nebu INH 05/29/24 08:01 3 ml PRN PRN Administration SOLN Plan This 64-year-old male with PMHx HFrEF (15-20%, EF Jan 2024), HTN, substance abuse (Meth), Chronic osteomyelitis of the L foot, hep C and medication non- compliance presented to the ED on 04/29/2024 with chief complaint of worsening shortness of breath, chest pain and cough from last couple of days. Admitted for acute hypoxic respiratory failure due to HFrEF EF 15% and meth induced cardiomyopathy. # Acute Hypoxic resp failure # Meth induced Toxic Cardiomyopahty # HFrEF, EF 15-20% per January 2024 # LV thrombus per echo from January on Eliquis # Hypertensive urgency # Methamphetamine abuse disorder ? Patient presented with worsening shortness of breath, chest pain and mild cough for last couple of days. He also has lower extremity swelling/edema. Prominent JVD noticed.Echocardiogram from January 2024 showed dilated LV. Severe systolic dysfunction. Severe global hypokinesis. Large thrombus near apex 1.5 x 1.8 cm. Moderate RV dilation. Severe biatrial dilation. Ascending aorta mildly dilated 3.6 cm. Mild to moderate MR. ?Patient was given Lasix 80 mg x 1, hydralazine 10 mg x 1. ?Patient was prescribed Lasix 40 mg once a day, Eliquis 5 mg twice a day and Entresto at home ? Patient has significant improvement in shortness of breath and lower extremity swelling. ? Positive balance and no diuresis seen today on urine output. ? Patient still have mild anxiety. CIWA 5 Plan: ? IV KCl 40 mEq repleted x 1 ? Recommended to continue Bumex 2 mg once a day ? Cont metoprolol succinate 25 mg twice daily or change to metoprolol succinate XL 50 mg once a day ? Monitor strict GABRIELLE's, fluid restriction 1500 cc daily, daily weight ? Kidney function remains stable at 1.7 ? Monitor vitals closely ? Replete electrolytes as necessary ? Keep magnesium above 2 and potassium above 4 ? Patient needs close follow-up for compliance of medications ? Continue CIWA protocol and Librium as needed # NSTEMI type II likely supply demand ischemia ?Initial troponin I was elevated at 1.9 down trended to 1.5. ? EKG did not show new ST-T changes. Plan: ? Troponin I down trended ? Monitor patient for signs symptoms of chest pain or shortness of breath ? Monitor vitals Other active problems: # GEOVANY on CKD stage IIIa # Normocytic anemia # Thrombocytopenia # Electrolyte disturbance # Hypokalemia # Alcohol withdrawal alcohol use disorder on restraints # History of chronic osteomyelitis left foot, # History of hep C and medication noncompliance Rest of the management as per primary care team. -- Thank you very much for consulting cardiology team. Recommended to continue Bumex 2 mg once a day, continue metoprolol succinate 25 mg twice daily and continue CIWA protocol as needed for patient's withdrawal symptoms. Plan of care discussed with baking powder mixer, Dr. Sharan Collier MD, PGY 2
[2024-05-04] MEDS: LORazepam 2 MG/ML VIAL 0.5 MG IV ×2 (16:50→20:59)
[2024-05-04] MEDS: ATORVASTATIN CALCIUM 20 MG TABLET 40 MG PO (20:59)
[2024-05-05] VITALS (13 sets, daily range): BP systolic 98–121; BP diastolic 70–86; PULSE 57–96; RESP 8–100; TEMP 36.1–37.5; O2SAT 93–100
[2024-05-05 06:19] LABS: Basophils # (Auto) 0.1 Thou/mm3 (0.0-0.2); Basophils % (Auto) 1 % (0-2.5); Eosinophils # (Auto) 0.4 Thou/mm3 (0.0-0.5); Eosinophils % (Auto) 5 % (0-10); Hematocrit 41.8 % (41.0-53.0); Hemoglobin 13.7 g/dL (13.5-16.0); Immature Granulocytes % (Auto) 0 % (0-0); Immature Granulocytes Auto 0.02 Thou/mm3 (0.00-0.00); Lymphocytes # (Auto) 1.5 Thou/mm3 (1.0-4.8); Lymphocytes % (Auto) 21 % (10-50); Mean Corpuscular HGB Conc 32.8 g/dl (31.0-37.0); Mean Corpuscular Hemoglobin 28.7 pg (25.0-35.0); Mean Corpuscular Volume 87 fL (80-100); Monocytes # (Auto) 0.8 Thou/mm3 (0.0-0.8); Monocytes % (Auto) 11 % (0-12); Neutrophils # (Auto) 4.5 Thou/mm3 (1.8-7.7); Neutrophils % (Auto) 62 % (37-80); Nucleated Red Blood Cell % 0 /100 WBC (0); Platelet Count 129 Thou/mm3 (140-440); RDW Standard Deviation 56.4 fL (35.1-43.9); Red Blood Count 4.78 Miln/mm3 (4.50-5.90); White Blood Count 7.3 Thou/mm3 (3.8-10.6)
[2024-05-05] MEDS: ALBUTEROL/IPRATROPIUM (Duoneb) RT SOL 3 ML NEBU INH ×3 (06:51→19:07)
--- NOTE | 2024-05-05 07:01 | PC.NURSE ---
Patient in bed with sitter at bedsite and telesitter. RT giving treatment. Instruduced self to patient.
[2024-05-05 07:07] LABS: Alanine Aminotransferase 17 U/L (10-49); Albumin, Serum 3.8 gm/dL (3.4-4.8); Albumin/Globulin Ratio 1.2 (1.2-2.2); Alkaline Phosphatase 126 U/L (46-116); Anion Gap 9 (7-16); Aspartate Amino Transferase 28 U/L (0-34); BUN/Creatinine Ratio 21 Ratio (12-20); Bilirubin,Total 1.1 mg/dL (0.3-1.2); Blood Urea Nitrogen 33 mg/dL (9-23); Calcium 8.7 mg/dL (8.3-10.6); Calcium (Corrected) 8.9 mg/dL (8.5-10.1); Carbon Dioxide 27.1 mMol/L (20.0-31.0); Chloride 103 mMol/L (98-107); Creatinine (Component) 1.6 mg/dL (0.6-1.3); Estimated Creatinine Clearance 45.7 mL/min (>60); Globulin 3.2 gm/dL (2.3-3.5); Glucose 81 mg/dL (74-106); Osmolality,Calculated 283 (275-295); Potassium 3.7 mMol/L (3.4-5.1); Sodium 139 mMol/L (136-145); eGFR 48 See Note
[2024-05-05] MEDS: ASPIRIN EC 81 MG TABEC PO (08:46)
[2024-05-05] MEDS: APIXABAN 2.5 MG TABLET 5 MG PO ×2 (08:47→21:08)
[2024-05-05] MEDS: BUMETANIDE INJ 0.25 MG/ML VIAL 4 ML 2 MG IVP (08:48)
[2024-05-05] MEDS: LORazepam 2 MG/ML VIAL 1 MG IV (11:50)
--- NOTE | 2024-05-05 13:37 | PC.NURSE ---
Patient sitting in bed. RT administering neb treatment.
--- NOTE | 2024-05-05 13:46 | ESPR_ITS ---
<Statement entered by Jose Desir DO - 05/05/24 19:05> Senior attestation: Patient was examined and case was reviewed with team including attending physician. Note reviewed, I agree with most of its contents and agree with the patient's care. Cardiology team following, will switch to PO bumex tomorrow as patient had received IV dose this morning. Will attempt to hold ativan today and ambulate patient to assess for respiratory status and oxygen needs. Anticipate discharge in next 24-48 hours. Jose Desir DO PGY-3 Documentation for date of: 05/05/24 Subjective Subjective Interval history: Patient seen at bedside. Patient is on room air, maintaining oxygen saturation >95. Patient is homeless and requires no supplemental oxygen at baseline. Patient still has mild symptoms of alcohol and methamphetamine withdrawal. Will switch to p.o. diuresis starting tomorrow. Will hold Ativan for now. Will continue to monitor the patient. Anticipate discharge in the next 24 hours if patient's withdrawal subsides. Exam Vital Signs Temp Pulse Resp BP Pulse Ox O2 Del Method O2 Flow Rate 97.0 F 67 18 110/86 H 100 Nasal Cannula 1 05/05/24 12:00 05/05/24 13:42 05/05/24 13:42 05/05/24 12:00 05/05/24 13:42 05/05/24 04:00 05/05/24 04:00 FiO2 2 05/04/24 12:31 Narrative Exam GENERAL APPEARANCE: Patient is AOx3, generally well-appearing male in no acute distress. HEENT: NC, AT. MMM. EOMI, clear conjunctiva, oropharynx clear. NECK: Supple without lymphadenopathy. No stiffness or restricted ROM. HEART: Regular rate and regular rhythm, normal S1/S2, no m/r/g LUNGS: Bilateral crackles heard on auscultation, wheezing heard bilaterally ABDOMEN: Soft, nontender, nondistended with good bowel sounds heard. BACK: No CVAT, no obvious deformity. EXTREMITIES: No edema noticed on both lower extremities NEUROLOGICAL: Grossly nonfocal. Alert and oriented, moving all 4 extremities. CN not formally tested but appear grossly intact. Skin: Warm and dry without any rash. Objective Labs 05/06/24 05:39 05/06/24 05:39 Labs: Laboratory Results - last 24 hr 05/05/24 05:10 WBC 7.3 RBC 4.78 Hgb 13.7 Hct 41.8 MCV 87 MCH 28.7 MCHC 32.8 RDW Std Deviation 56.4 H Plt Count 129 L D Neut % (Auto) 62 Lymph % (Auto) 21 [place] % (Auto) 11 Eos % (Auto) 5 Baso % (Auto) 1 Neut # (Auto) 4.5 Lymph # (Auto) 1.5 [place] # (Auto) 0.8 Eos # (Auto) 0.4 Baso # (Auto) 0.1 Immature Gran # (Auto) 0.02 H Absolute Nucleated RBC 0.00 Immature Gran % 0 Nucleated RBC % 0 Sodium 139 Potassium 3.7 Chloride 103 Carbon Dioxide 27.1 Anion Gap 9 BUN 33 H Creatinine 1.6 H Estim Creat Clear Calc 45.7 L eGFR 48 L BUN/Creatinine Ratio 21 H Glucose 81 D Calculated Osmolality 283 Calcium 8.7 Corrected Calcium 8.9 Magnesium 2.0 Total Bilirubin 1.1 AST 28 ALT 17 Alkaline Phosphatase 126 H Total Protein 7.0 Albumin 3.8 Globulin 3.2 Albumin/Globulin Ratio 1.2 Quality Measures Quality Measures VTE prophylaxis (Eliquis 5 mg twice daily) Assessment & Plan Assessment Current Active Medications: Generic Name Dose Route Start Last Admin Trade Name Freq PRN Reason Stop Dose Admin Acetaminophen 650 mg 04/29/24 11:54 Acetaminophen 325 Mg Tablet PO 05/29/24 11:53 Q6H PRN Pain and Fever >100.3 Albuterol/Ipratropium 3 ml 05/01/24 07:30 05/05/24 13:37 Albuterol/Ipratropium (Duoneb) Rt Lacie 3 Ml Nebu INH 05/31/24 07:29 3 ml Q6HRRT JANETTE Administration Apixaban 5 mg 04/29/24 12:15 05/05/24 08:47 Apixaban 2.5 Mg Tablet PO 05/29/24 12:14 5 mg BID JANETTE Administration Aspirin 81 mg 04/29/24 12:15 05/05/24 08:46 Aspirin Ec 81 Mg Tabec PO 05/29/24 12:14 81 mg QDAY JANETTE Administration Atorvastatin Calcium 40 mg 04/29/24 21:00 05/04/24 20:59 Atorvastatin Calcium 20 Mg Tablet PO 05/29/24 20:59 40 mg HS JANETTE Administration Bumetanide 2 mg 05/01/24 09:00 05/05/24 08:48 Bumetanide Inj 0.25 Mg/Ml Vial 4 Ml IVP 05/31/24 08:59 2 mg QDAY JANETTE Administration Lorazepam 2 mg 05/03/24 15:58 Lorazepam 2 Mg/Ml Vial IVP X1 PRN Breakthrough Agitation Lorazepam 1 mg 05/03/24 16:46 05/05/24 11:50 Lorazepam 2 Mg/Ml Vial IV 05/08/24 15:57 1 mg Q2H PRN Administration CIWA SCORE 14-19 Lorazepam 0.5 mg 05/03/24 16:46 05/04/24 20:59 Lorazepam 2 Mg/Ml Vial IV 05/08/24 15:57 0.5 mg Q2H PRN Administration CIWA SCORE 8-13 Lorazepam 2 mg 05/03/24 16:46 Lorazepam 2 Mg/Ml Vial IV 05/08/24 15:57 Q2H PRN CIWA SCORE 20-25 Metoprolol Succinate 25 mg 05/02/24 09:00 05/05/24 08:53 Metoprolol Succinate Xl 25 Mg Tabcr PO 06/01/24 08:59 Not Given BID JANETTE Ondansetron HCl 4 mg 04/29/24 11:54 Ondansetron Inj 2 Mg/Ml Inj 2 Ml IV 05/29/24 11:53 Q6H PRN NAUSEA OR VOMITING Protocol Sennosides 1 tab 04/29/24 11:54 Senna Tablet PO 05/29/24 11:53 QDAY PRN constipation Protocol Sodium Chloride 3 ml 04/29/24 08:02 04/29/24 08:46 Sodium Chloride Rt Lacie 0.9% 3 Ml Nebu INH 05/29/24 08:01 3 ml PRN PRN Administration SOLN Plan Assessment & Plan: Patient is 63 years old male with past medical history of HFrEF (EF 15-20% 01/2024), HTN, HLD, methamphetamine and alcohol use, chronic left foot osteomyelitis, hepatitis C, noncompliant with medication, homelessness, who presents to the ED complaining of shortness of breath. 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 #History of hypertension. #Chronic apical thrombus left ventricle -Patient complains of shortness of breath, unable to speak in full sentences, complains of orthopnea, denies PND. -Patient is noncompliant with medications outpatient, has multiple visits to emergency department for similar complaints -Chest x-ray shows moderate CHF, patient has 2+ bilateral lower extremity edema, crackles heard bilaterally -Last echo was done in January 2024 shows ejection fraction 15 to 20%, severe global hypokinesis, dilated left ventricle, large thrombus near apex 1.5 and 1.8 cm, moderate right ventricular dilation, decreased right ventricular function, severe biatrial dilation -BNP 2769 on admission -04/29/24: Patient is net -8.5 L, patient's weight decreased by 3 Kg, net urine output 9.6 L in 24 hours. -04/30/24: Patient is -390 mL, net urine output 2.25 L in 24 hours. -Patient refusing residential monitor, refusing fluid restriction, refusing strict GABRIELLE's. -Dry weight 68.75 kg Plan: -Ordered BNP for tomorrow morning, will obtain baseline BNP -Was given Bumex 2 mg once daily today -Patient started on Bumex 2 mg p.o. starting tomorrow -Continue metoprolol succinate 25 mg twice daily -Patient will be started on potassium chloride 10 mEq daily on discharge -Fluid restriction 1500 cc -Strict I&O, daily weight check -Cardiac Diet, fluid restriction 1500 cc -Avoid cardiotoxic medications -DuoNeb as needed -Candy Separator [place] Dr. Tsang consulted, appreciate recommendations -Monitor tele -continue Eliquis 5 mg p.o. twice daily #NSTEMI type II, demand ischemia #History of hyperlipidemia. -On admission Troponin 0.364 -> 1.921 -> 1.532 -EKG showed sinus rhythm -Denied any chest pain, arm numbness, dizziness. -TSH 3.95 hemoglobin A1c 5.6 -Lipid panel Triglyceride 68, cholesterol 116, LDL 68, HDL 34 Plan: -Continue aspirin and atorvastatin -Candy Separator [place] consulted, appreciate recommendations -Monitor tele #GEOVANY On CKD? -Creatinine 1.6 BUN 30, EGFR 48, on admission -Suspicion of CKD as patient's renal function has not improved. Plan: -Renally dose medications -Avoid nephrotoxic agents -Monitor CMP #Alcohol dependence with withdrawal #Transaminitis Patient reports daily use of alcohol 6 pack beer for the last 3 years, last drink was yesterday. AST 72, T. bili 1.9, ALT 45, alk phos 169 CIWA score 2 in a.m. Discontinued Librium Discontinued restraints Plan -Will hold Ativan for now as patient's withdrawal has improved -Monitor CMP daily -Alcohol cessation advised #Substance use disorder. #Homelessness. #Methamphetamine Use #History of hepatitis C. Uses methamphetamine and drinks alcohol daily. Urine tox screen positive for methamphetamine Plan -Referred to social media designer consult. #Chronic left foot osteomyelitis -Patient was diagnosed with left foot osteomyelitis in June 2022. -Denies any pain currently -Reported completing oral antibiotic treatment outpatient Health maintenance: Disposition: Telemetry Diet: Cardiac diet, fluid restriction 1500 cc GI prophylaxis: Not indicated DVT prophylaxis: SCDs, Eliquis Code: Full code Case discussed with Attending Dr. Lyons and Dr. Desir PGY3. Leilani Rojas PGY1 Attending Provider Attestation/Addendum I have discussed and was present for the essential components of the history, physical examination, diagnosis, and treatment plan with the resident. I agree with the patient's care as documented by the resident and amended herein by me. Nahun Lyons DO. Although this document has been carefully reviewed, there may still be some phonetic and other typographical errors. These errors are purely grammatical due to imperfections in the software program and should not be construed in any way to compromise the substance of the patient's medical care during this visit.
--- NOTE | 2024-05-05 14:24 | PC.NURSE ---
Patient sitting in bed, sitter in the room.
--- NOTE | 2024-05-05 14:28 | ESPR_ITS ---
<Statement entered by Misael Tsang MD - 05/08/24 12:54> I personally examined the patient evaluated patient continues to improve as for the heart failure is concerned about his appears to have withdrawal symptoms and otherwise doing fairly well I evaluated the patient reviewed all the findings and consultation follow-up note and agree with the treatment plan recommendation as documented by Dr. Collier PGY 2 Documentation for date of: 05/05/24 Subjective Subjective Interval history: This 64-year-old male with PMHx HFrEF (15-20%, EF Jan 2024), HTN, substance abuse (Meth), Chronic osteomyelitis of the L foot, hep C and medication non- compliance presented to the ED on 04/29/2024 with chief complaint of worsening shortness of breath, chest pain and cough from last couple of days. He denied any nausea or vomiting or diarrhea. No fever or chills. Patient did have a history of LV thrombus for which he was prescribed Eliquis however patient was not taking it. EKG showed normal sinus rhythm, heart rate 85, no ST elevation or depression seen. No PVCs. QTc 518. First-degree AV block it. Old Q waves noted in lead to 3 and aVF. Labs revealed elevated BUN and creatinine 1.6 consistent with CKD. BNP 2800. Troponin elevated at 1.9 down trended to 1.5. U tox positive for methamphetamines. Chest x-ray showed moderate CHF. Vitals showed elevated blood pressure 161/129, mildly tachycardic heart rate 95, respiratory rate 20 and afebrile. He was saturating at 97% on 2 L NC. Patient was given Lasix 80 mg x 1, nitroglycerin x 1, hydralazine 10 mg x 1 and Eliquis 5 mg x 1 in the ED. Cardiology is consulted for CHF exacerbation and LV thrombus. Patient was seen and examined at the bedside. He reported having worsening shortness of breath with mild chest pain and cough from last couple of days.He does have component of non compliance however has been seen by resident in [facility]. We recommended to continue Bumex 2 mg IV twice daily, Eliquis 5 mg 2 times a day, fluid restriction, strict GABRIELLE's and daily weight.Continue aspirin 81 mg once a day. Ordered repeat echocardiogram to evaluate EF and LV thrombus. Will likely Consider adding Entresto 1 tablet twice daily and metoprolol XL 25 mg once a day given history of heart failure once stable and well diuresed. Cardiology will follow the case closely. 04/30/2024: Patient was seen and examined at the bedside. Patient reported improvement in his shortness of breath and lower extremity swelling. Patient had a urine output of more than 9 L with negative balance of 8 L. Blood pressure remained stable. Kidney function showed improvement with creatinine from 1.6->1.5. Slight drop in hemoglobin to 12.6. Electrolyte panel revealed mild hypokalemia which was repleted. Troponin I down trended. Recommended to decrease diuresis to 2 mg Bumex once a day. No further new recommendations. Continue diuresis, strict GABRIELLE's and fluid restriction for now. Follow-up on echocardiogram. Consider adding low-dose beta-augustine and Entresto upon discharge. All labs and orders were reviewed. 05/02/2024: Patient was seen and examined at the bedside. Patient was short of breath and was withdrawing from alcohol and meth. He has been managed on CIWA protocol as needed. Recommended to continue Bumex 2 mg once a day, started metoprolol 25 mg twice a day and echocardiogram was deferred given recent echo in January. Continue fluid restriction, strict GABRIELLE's and daily weight. All labs and orders were reviewed. 05/03/24: Patient was seen and examined at the bedside, He looked very agitated and disturbed, Librium was discontinued and seen on wrist restraints. Vitals are stable. Labs showed thrombocytopenia. Kidney functions shows creatinine 1.7. Rec to continue bumex 2 mg once a day although didnt show good diuresis output today , change metoprolol XL 25 mg to 50 once a day or keep the same. Manage underlying condition.CIWA score 11. Continue CIWA protocol. 05/04/2024: Patient was seen and examined at the bedside.Vitals reviewed soft blood pressure, tachypnea and 99% saturation on 2 L NC. Chemistry panel showed stable white count and hemoglobin. Thrombocytopenia. Chemistry panel showed BUN 35 and creatinine 1.7 consistent with CKD. Patient's diuresis output 200 cc with positive balance of 760 cc. CIWA score 5. Recommended to continue Bumex 2 mg once a day metoprolol XL 25 once a day. Patient will not benefit from Entresto given CKD. 05/05/2024: Patient was seen and examined at the bedside. CIWA score 3 today. Vitals stable. Labs revealed stable hemoglobin and mild thrombocytopenia. Chemistry panel was unremarkable. Kidney functions showed BUN 33 and creatinine 1.6. Recommended to continue Bumex 2 mg p.o. once a day, metoprolol succinate 25 mg p.o. twice daily and Eliquis 5 mg twice daily. All labs and orders were reviewed. Exam Vital Signs Temp Pulse Resp BP Pulse Ox O2 Del Method O2 Flow Rate 97.0 F 67 18 110/86 H 100 Nasal Cannula 1 05/05/24 12:00 05/05/24 13:42 05/05/24 13:42 05/05/24 12:00 05/05/24 13:42 05/05/24 04:00 05/05/24 04:00 FiO2 2 05/04/24 12:31 Narrative Exam GENERAL APPEARANCE: Patient is AOx2, male in mild distress. HEENT: NC, AT. MMM. EOMI, clear conjunctiva, oropharynx clear. Improvement in JVD NECK: Supple without lymphadenopathy. No stiffness or restricted ROM. HEART: Regular rate and regular rhythm, normal S1/S2, no m/r/g LUNGS: Bilateral crackles heard on auscultation ABDOMEN: Soft, nontender, nondistended with good bowel sounds heard. BACK: No CVAT, no obvious deformity. EXTREMITIES: 2+ pitting edema noticed with chronic venous stasis on both lower extremities NEUROLOGICAL: Grossly nonfocal. Alert and oriented, moving all 4 extremities. CN not formally tested but appear grossly intact. Skin: Warm and dry without any rash. Psych: Withdrawing from meth and alcohol CIWA 5 Objective Labs 05/05/24 05:10 05/05/24 05:10 Labs: Laboratory Results - last 24 hr 05/05/24 05:10 WBC 7.3 RBC 4.78 Hgb 13.7 Hct 41.8 MCV 87 MCH 28.7 MCHC 32.8 RDW Std Deviation 56.4 H Plt Count 129 L D Neut % (Auto) 62 Lymph % (Auto) 21 [place] % (Auto) 11 Eos % (Auto) 5 Baso % (Auto) 1 Neut # (Auto) 4.5 Lymph # (Auto) 1.5 [place] # (Auto) 0.8 Eos # (Auto) 0.4 Baso # (Auto) 0.1 Immature Gran # (Auto) 0.02 H Absolute Nucleated RBC 0.00 Immature Gran % 0 Nucleated RBC % 0 Sodium 139 Potassium 3.7 Chloride 103 Carbon Dioxide 27.1 Anion Gap 9 BUN 33 H Creatinine 1.6 H Estim Creat Clear Calc 45.7 L eGFR 48 L BUN/Creatinine Ratio 21 H Glucose 81 D Calculated Osmolality 283 Calcium 8.7 Corrected Calcium 8.9 Magnesium 2.0 Total Bilirubin 1.1 AST 28 ALT 17 Alkaline Phosphatase 126 H Total Protein 7.0 Albumin 3.8 Globulin 3.2 Albumin/Globulin Ratio 1.2 Quality Measures Quality Measures VTE prophylaxis (Eliquis 5 mg twice daily) Assessment & Plan Assessment Current Active Medications: Generic Name Dose Route Start Last Admin Trade Name Freq PRN Reason Stop Dose Admin Acetaminophen 650 mg 04/29/24 11:54 Acetaminophen 325 Mg Tablet PO 05/29/24 11:53 Q6H PRN Pain and Fever >100.3 Albuterol/Ipratropium 3 ml 05/01/24 07:30 05/05/24 13:37 Albuterol/Ipratropium (Duoneb) Rt Lacie 3 Ml Nebu INH 05/31/24 07:29 3 ml Q6HRRT JANETTE Administration Apixaban 5 mg 04/29/24 12:15 05/05/24 08:47 Apixaban 2.5 Mg Tablet PO 05/29/24 12:14 5 mg BID JANETTE Administration Aspirin 81 mg 04/29/24 12:15 05/05/24 08:46 Aspirin Ec 81 Mg Tabec PO 05/29/24 12:14 81 mg QDAY JANETTE Administration Atorvastatin Calcium 40 mg 04/29/24 21:00 05/04/24 20:59 Atorvastatin Calcium 20 Mg Tablet PO 05/29/24 20:59 40 mg HS JANETTE Administration Bumetanide 2 mg 05/06/24 09:00 Bumetanide 0.5 Mg Tablet PO 06/05/24 08:59 QDAY JANETTE Lorazepam 2 mg 05/03/24 15:58 Lorazepam 2 Mg/Ml Vial IVP X1 PRN Breakthrough Agitation Lorazepam 1 mg 05/03/24 16:46 05/05/24 11:50 Lorazepam 2 Mg/Ml Vial IV 05/08/24 15:57 1 mg Q2H PRN Administration CIWA SCORE 14-19 Lorazepam 0.5 mg 05/03/24 16:46 05/04/24 20:59 Lorazepam 2 Mg/Ml Vial IV 05/08/24 15:57 0.5 mg Q2H PRN Administration CIWA SCORE 8-13 Lorazepam 2 mg 05/03/24 16:46 Lorazepam 2 Mg/Ml Vial IV 05/08/24 15:57 Q2H PRN CIWA SCORE 20-25 Metoprolol Succinate 25 mg 05/02/24 09:00 05/05/24 08:53 Metoprolol Succinate Xl 25 Mg Tabcr PO 06/01/24 08:59 Not Given BID JANETTE Ondansetron HCl 4 mg 04/29/24 11:54 Ondansetron Inj 2 Mg/Ml Inj 2 Ml IV 05/29/24 11:53 Q6H PRN NAUSEA OR VOMITING Protocol Sennosides 1 tab 04/29/24 11:54 Senna Tablet PO 05/29/24 11:53 QDAY PRN constipation Protocol Sodium Chloride 3 ml 04/29/24 08:02 04/29/24 08:46 Sodium Chloride Rt Lacie 0.9% 3 Ml Nebu INH 05/29/24 08:01 3 ml PRN PRN Administration SOLN Plan This 64-year-old male with PMHx HFrEF (15-20%, EF Jan 2024), HTN, substance abuse (Meth), Chronic osteomyelitis of the L foot, hep C and medication non- compliance presented to the ED on 04/29/2024 with chief complaint of worsening shortness of breath, chest pain and cough from last couple of days. Admitted for acute hypoxic respiratory failure due to HFrEF EF 15% and meth induced cardiomyopathy. # Acute Hypoxic resp failure # Meth induced Toxic Cardiomyopahty # HFrEF, EF 15-20% per January 2024 # LV thrombus per echo from January on Eliquis # Hypertensive urgency # Methamphetamine abuse disorder ? Patient presented with worsening shortness of breath, chest pain and mild cough for last couple of days. He also has lower extremity swelling/edema. Prominent JVD noticed.Echocardiogram from January 2024 showed dilated LV. Severe systolic dysfunction. Severe global hypokinesis. Large thrombus near apex 1.5 x 1.8 cm. Moderate RV dilation. Severe biatrial dilation. Ascending aorta mildly dilated 3.6 cm. Mild to moderate MR. ?Patient was given Lasix 80 mg x 1, hydralazine 10 mg x 1. ?Patient was prescribed Lasix 40 mg once a day, Eliquis 5 mg twice a day and Entresto at home ? Patient has significant improvement in shortness of breath and lower extremity swelling. ?Net positive diuresis on urine output ? Patients anxiety has improved CIWA score 3 Plan: ? Recommended to continue PO Bumex 2 mg once a day ? Cont metoprolol succinate 25 mg twice daily or change to metoprolol succinate XL 50 mg once a day ? Monitor strict GABRIELLE's, fluid restriction 1500 cc daily, daily weight ? Kidney function remains stable at 1.6 ? Monitor vitals closely ? Replete electrolytes as necessary ? Keep magnesium above 2 and potassium above 4 ? Patient needs close follow-up for compliance of medications ? Continue CIWA protocol and Librium as needed # NSTEMI type II likely supply demand ischemia ?Initial troponin I was elevated at 1.9 down trended to 1.5. ? EKG did not show new ST-T changes. Plan: ? Troponin I down trended ? Monitor patient for signs symptoms of chest pain or shortness of breath ? Monitor vitals Other active problems: # GEOVANY on CKD stage IIIa # Normocytic anemia # Thrombocytopenia # Electrolyte disturbance # Hypokalemia # Alcohol withdrawal alcohol use disorder on restraints # History of chronic osteomyelitis left foot, # History of hep C and medication noncompliance Rest of the management as per primary care team. -- Thank you very much for consulting cardiology team. Recommended to continue Bumex 2 mg once a day, continue metoprolol succinate 25 mg twice daily. Continue Eliquis 5 mg twice daily. Plan of care discussed with provider engagement executive, Dr. Sharan Collier MD, PGY 2
[2024-05-05] MEDS: ATORVASTATIN CALCIUM 20 MG TABLET 40 MG PO (21:08)
[2024-05-05] MEDS: METOPROLOL SUCCINATE XL 25 MG TABCR PO (21:08)
[2024-05-06] VITALS (7 sets, daily range): BP systolic 92–117; BP diastolic 49–88; PULSE 66–82; RESP 15–99; TEMP 36.4–37.2; O2SAT 94–100
[2024-05-06] MEDS: ALBUTEROL/IPRATROPIUM (Duoneb) RT SOL 3 ML NEBU INH ×2 (01:14→06:17)
[2024-05-06 06:07] LABS: Basophils # (Auto) 0.1 Thou/mm3 (0.0-0.2); Basophils % (Auto) 1 % (0-2.5); Eosinophils # (Auto) 0.3 Thou/mm3 (0.0-0.5); Eosinophils % (Auto) 3 % (0-10); Hematocrit 40.7 % (41.0-53.0); Immature Granulocytes % (Auto) 1 % (0-0); Immature Granulocytes Auto 0.05 Thou/mm3 (0.00-0.00); Lymphocytes # (Auto) 1.4 Thou/mm3 (1.0-4.8); Lymphocytes % (Auto) 13 % (10-50); Mean Corpuscular HGB Conc 31.9 g/dl (31.0-37.0); Mean Corpuscular Hemoglobin 28.1 pg (25.0-35.0); Mean Corpuscular Volume 88 fL (80-100); Monocytes # (Auto) 0.9 Thou/mm3 (0.0-0.8); Monocytes % (Auto) 8 % (0-12); Neutrophils # (Auto) 8.2 Thou/mm3 (1.8-7.7); Neutrophils % (Auto) 75 % (37-80); Nucleated Red Blood Cell % 0 /100 WBC (0); Platelet Count 175 Thou/mm3 (140-440); RDW Standard Deviation 56.7 fL (35.1-43.9); Red Blood Count 4.62 Miln/mm3 (4.50-5.90); White Blood Count 10.9 Thou/mm3 (3.8-10.6)
[2024-05-06 06:24] LABS: B-Type Natriuretic Peptide 1101 pg/mL (0-100)
[2024-05-06 06:39] LABS: Alanine Aminotransferase 17 U/L (10-49); Albumin, Serum 3.9 gm/dL (3.4-4.8); Albumin/Globulin Ratio 1.2 (1.2-2.2); Alkaline Phosphatase 124 U/L (46-116); Anion Gap 9 (7-16); Aspartate Amino Transferase 31 U/L (0-34); BUN/Creatinine Ratio 19 Ratio (12-20); Bilirubin,Total 1.4 mg/dL (0.3-1.2); Blood Urea Nitrogen 30 mg/dL (9-23); Calcium 8.8 mg/dL (8.3-10.6); Calcium (Corrected) 8.9 mg/dL (8.5-10.1); Chloride 103 mMol/L (98-107); Creatinine (Component) 1.6 mg/dL (0.6-1.3); Estimated Creatinine Clearance 45.7 mL/min (>60); Globulin 3.2 gm/dL (2.3-3.5); Glucose 114 mg/dL (74-106); Magnesium 1.8 mg/dL (1.6-2.6); Osmolality,Calculated 281 (275-295); Potassium 3.9 mMol/L (3.4-5.1); Sodium 137 mMol/L (136-145); Total Protein 7.1 gm/dL (5.7-8.2); eGFR 48 See Note
[2024-05-06] MEDS: ASPIRIN EC 81 MG TABEC PO (08:33)
[2024-05-06] MEDS: APIXABAN 2.5 MG TABLET 5 MG PO (08:33)
--- NOTE | 2024-05-06 09:51 | PC.SS ---
Addendum entered by Elmira Jama 05/06/24 10:52: SS cancelled taxi transportation for 3:45pm. SS was informed by bedside nurseSu pt is requesting to leave now and will walk to [facility]. Bedside nurseSu provided sack lunch for pt to take with him. SS provided pt with a bus pass and [employer]. Pt is aware taxi transport was setup for 3:45 but pt requested not to wait. Addendum entered by Elmira Jama 05/06/24 10:15: Late note 05/05/24: SS met with pt who is requesting to d/c to [facility]. Pt is aware he will have to wait in line for doors to open. Pt is agreeable. Bedside nurseMoris was present. Addendum entered by Elmira Jama 05/06/24 10:14: Late note 05/05/24: SS met with pt who is requesting to d/c to [facility]. Pt is aware he will have to wait in line for doors to open. Pt is agreeable. and bedside nurseMoris was present, Original Note: SS met with pt to confirm d/c plan. Pt was requesting to visit his brother, Ulises in [place]. SS called patient's sister to obtain Ulises's address: [address] [place] [address] in [place] ([facility]), phone# [phone]. Pt is aware he can only visit brother. SS informed pt taxi can be provided if they are available and SS can provide bus pass. Pt is now requesting to d/c to [facility] in [place]. Jarrod MUÑOZ was present at bedside. Pt has appropriate clothes, sweater, pants, shirts, and 2 pairs of shoes. Pt has 2 bags of clothing at bedside. Beside nurseSu is aware and to order sack lunch at d.c.
--- NOTE | 2024-05-06 09:56 | ESPR_ITS ---
<Statement entered by Misael Tsang MD - 05/08/24 13:03> The patient appears to be doing better seen by me in telemetry along with resident physician PGY 2 Dr. Collier clinically is doing a lot better all the medications reviewed by me continue present medical management for heart failure and also Eliquis for cardiac thrombi no need for any further workup at this time we will sign off the case for now. Treatment plan recommendation reviewed as documented . Documentation for date of: 05/06/24 Subjective Subjective Interval history: This 64-year-old male with PMHx HFrEF (15-20%, EF Jan 2024), HTN, substance abuse (Meth), Chronic osteomyelitis of the L foot, hep C and medication non- compliance presented to the ED on 04/29/2024 with chief complaint of worsening shortness of breath, chest pain and cough from last couple of days. He denied any nausea or vomiting or diarrhea. No fever or chills. Patient did have a history of LV thrombus for which he was prescribed Eliquis however patient was not taking it. EKG showed normal sinus rhythm, heart rate 85, no ST elevation or depression seen. No PVCs. QTc 518. First-degree AV block it. Old Q waves noted in lead to 3 and aVF. Labs revealed elevated BUN and creatinine 1.6 consistent with CKD. BNP 2800. Troponin elevated at 1.9 down trended to 1.5. U tox positive for methamphetamines. Chest x-ray showed moderate CHF. Vitals showed elevated blood pressure 161/129, mildly tachycardic heart rate 95, respiratory rate 20 and afebrile. He was saturating at 97% on 2 L NC. Patient was given Lasix 80 mg x 1, nitroglycerin x 1, hydralazine 10 mg x 1 and Eliquis 5 mg x 1 in the ED. Cardiology is consulted for CHF exacerbation and LV thrombus. Patient was seen and examined at the bedside. He reported having worsening shortness of breath with mild chest pain and cough from last couple of days.He does have component of non compliance however has been seen by resident in [facility]. We recommended to continue Bumex 2 mg IV twice daily, Eliquis 5 mg 2 times a day, fluid restriction, strict GABRIELLE's and daily weight.Continue aspirin 81 mg once a day. Ordered repeat echocardiogram to evaluate EF and LV thrombus. Will likely Consider adding Entresto 24/ 1 tablet twice daily and metoprolol XL 25 mg once a day given history of heart failure once stable and well diuresed. Cardiology will follow the case closely. 04/30/2024: Patient was seen and examined at the bedside. Patient reported improvement in his shortness of breath and lower extremity swelling. Patient had a urine output of more than 9 L with negative balance of 8 L. Blood pressure remained stable. Kidney function showed improvement with creatinine from 1.6->1.5. Slight drop in hemoglobin to 12.6. Electrolyte panel revealed mild hypokalemia which was repleted. Troponin I down trended. Recommended to decrease diuresis to 2 mg Bumex once a day. No further new recommendations. Continue diuresis, strict GABRIELLE's and fluid restriction for now. Follow-up on echocardiogram. Consider adding low-dose beta-augustine and Entresto upon discharge. All labs and orders were reviewed. 05/02/2024: Patient was seen and examined at the bedside. Patient was short of breath and was withdrawing from alcohol and meth. He has been managed on CIWA protocol as needed. Recommended to continue Bumex 2 mg once a day, started metoprolol 25 mg twice a day and echocardiogram was deferred given recent echo in January. Continue fluid restriction, strict GABRIELLE's and daily weight. All labs and orders were reviewed. 05/03/24: Patient was seen and examined at the bedside, He looked very agitated and disturbed, Librium was discontinued and seen on wrist restraints. Vitals are stable. Labs showed thrombocytopenia. Kidney functions shows creatinine 1.7. Rec to continue bumex 2 mg once a day although didnt show good diuresis output today , change metoprolol XL 25 mg to 50 once a day or keep the same. Manage underlying condition.CIWA score 11. Continue CIWA protocol. 05/04/2024: Patient was seen and examined at the bedside.Vitals reviewed soft blood pressure, tachypnea and 99% saturation on 2 L NC. Chemistry panel showed stable white count and hemoglobin. Thrombocytopenia. Chemistry panel showed BUN 35 and creatinine 1.7 consistent with CKD. Patient's diuresis output 200 cc with positive balance of 760 cc. CIWA score 5. Recommended to continue Bumex 2 mg once a day metoprolol XL 25 once a day. Patient will not benefit from Entresto given CKD. 05/05/2024: Patient was seen and examined at the bedside. CIWA score 3 today. Vitals stable. Labs revealed stable hemoglobin and mild thrombocytopenia. Chemistry panel was unremarkable. Kidney functions showed BUN 33 and creatinine 1.6. Recommended to continue Bumex 2 mg p.o. once a day, metoprolol succinate 25 mg p.o. twice daily and Eliquis 5 mg twice daily. All labs and orders were reviewed. 05/06/2024: Patient was seen and examined at the bedside. Vitals remained stable. Labs looked unremarkable. Patient is stable from cardiology standpoint to be discharged today on current regimen. Exam Vital Signs Temp Pulse Resp BP Pulse Ox O2 Del Method O2 Flow Rate 98.1 F 66 17 92/49 L 100 Room Air 1 05/06/24 04:00 05/06/24 08:30 05/06/24 06:18 05/06/24 08:30 05/06/24 06:18 05/06/24 04:00 05/05/24 04:00 FiO2 2 05/04/24 12:31 Narrative Exam GENERAL APPEARANCE: Patient is AOx2, male in mild distress. HEENT: NC, AT. MMM. EOMI, clear conjunctiva, oropharynx clear. Improvement in JVD NECK: Supple without lymphadenopathy. No stiffness or restricted ROM. HEART: Regular rate and regular rhythm, normal S1/S2, no m/r/g LUNGS: Bilateral crackles heard on auscultation ABDOMEN: Soft, nontender, nondistended with good bowel sounds heard. BACK: No CVAT, no obvious deformity. EXTREMITIES: 2+ pitting edema noticed with chronic venous stasis on both lower extremities NEUROLOGICAL: Grossly nonfocal. Alert and oriented, moving all 4 extremities. CN not formally tested but appear grossly intact. Skin: Warm and dry without any rash. Psych: Withdrawing from meth and alcohol CIWA 5 Objective Labs 05/06/24 05:39 05/06/24 05:39 Labs: Laboratory Results - last 24 hr 05/06/24 05:39 WBC 10.9 H D RBC 4.62 Hgb 13.0 L Hct 40.7 L MCV 88 MCH 28.1 MCHC 31.9 RDW Std Deviation 56.7 H Plt Count 175 D Neut % (Auto) 75 Lymph % (Auto) 13 Brown % (Auto) 8 Eos % (Auto) 3 Baso % (Auto) 1 Neut # (Auto) 8.2 H Lymph # (Auto) 1.4 Brown # (Auto) 0.9 H Eos # (Auto) 0.3 Baso # (Auto) 0.1 Immature Gran # (Auto) 0.05 H Absolute Nucleated RBC 0.00 Immature Gran % 1 H Nucleated RBC % 0 Sodium 137 Potassium 3.9 Chloride 103 Carbon Dioxide 25.0 Anion Gap 9 BUN 30 H Creatinine 1.6 H Estim Creat Clear Calc 45.7 L eGFR 48 L BUN/Creatinine Ratio 19 Glucose 114 H Calculated Osmolality 281 Calcium 8.8 Corrected Calcium 8.9 Magnesium 1.8 Total Bilirubin 1.4 H AST 31 ALT 17 Alkaline Phosphatase 124 H B-Natriuretic Peptide 1101 H* Total Protein 7.1 Albumin 3.9 Globulin 3.2 Albumin/Globulin Ratio 1.2 Quality Measures Quality Measures VTE prophylaxis (Eliquis 5 mg twice daily) Assessment & Plan Assessment Current Active Medications: Generic Name Dose Route Start Last Admin Trade Name Freq PRN Reason Stop Dose Admin Acetaminophen 650 mg 04/29/24 11:54 Acetaminophen 325 Mg Tablet PO 05/29/24 11:53 Q6H PRN Pain and Fever >100.3 Albuterol/Ipratropium 3 ml 05/06/24 08:53 Albuterol/Ipratropium (Duoneb) Rt Lacie 3 Ml Nebu INH 05/31/24 07:29 Q6HRRT PRN WHEEZING Apixaban 5 mg 04/29/24 12:15 05/06/24 08:33 Apixaban 2.5 Mg Tablet PO 05/29/24 12:14 5 mg BID JANETTE Administration Aspirin 81 mg 04/29/24 12:15 05/06/24 08:33 Aspirin Ec 81 Mg Tabec PO 05/29/24 12:14 81 mg QDAY JANETTE Administration Atorvastatin Calcium 40 mg 04/29/24 21:00 05/05/24 21:08 Atorvastatin Calcium 20 Mg Tablet PO 05/29/24 20:59 40 mg HS JANETTE Administration Bumetanide 2 mg 05/06/24 09:00 05/06/24 08:30 Bumetanide 0.5 Mg Tablet PO 06/05/24 08:59 Not Given QDAY JANETTE Lorazepam 2 mg 05/03/24 15:58 Lorazepam 2 Mg/Ml Vial IVP X1 PRN Breakthrough Agitation Lorazepam 1 mg 05/03/24 16:46 05/05/24 11:50 Lorazepam 2 Mg/Ml Vial IV 05/08/24 15:57 1 mg Q2H PRN Administration CIWA SCORE 14-19 Lorazepam 0.5 mg 05/03/24 16:46 05/04/24 20:59 Lorazepam 2 Mg/Ml Vial IV 05/08/24 15:57 0.5 mg Q2H PRN Administration CIWA SCORE 8-13 Lorazepam 2 mg 05/03/24 16:46 Lorazepam 2 Mg/Ml Vial IV 05/08/24 15:57 Q2H PRN CIWA SCORE 20-25 Metoprolol Succinate 25 mg 05/02/24 09:00 05/06/24 08:30 Metoprolol Succinate Xl 25 Mg Tabcr PO 06/01/24 08:59 Not Given BID JANETTE Ondansetron HCl 4 mg 04/29/24 11:54 Ondansetron Inj 2 Mg/Ml Inj 2 Ml IV 05/29/24 11:53 Q6H PRN NAUSEA OR VOMITING Protocol Sennosides 1 tab 04/29/24 11:54 Senna Tablet PO 05/29/24 11:53 QDAY PRN constipation Protocol Sodium Chloride 3 ml 04/29/24 08:02 04/29/24 08:46 Sodium Chloride Rt Lacie 0.9% 3 Ml Nebu INH 05/29/24 08:01 3 ml PRN PRN Administration SOLN Plan This 64-year-old male with PMHx HFrEF (15-20%, EF Jan 2024), HTN, substance abuse (Meth), Chronic osteomyelitis of the L foot, hep C and medication non- compliance presented to the ED on 04/29/2024 with chief complaint of worsening shortness of breath, chest pain and cough from last couple of days. Admitted for acute hypoxic respiratory failure due to HFrEF EF 15% and meth induced cardiomyopathy. # Acute Hypoxic resp failure, resolved # Meth induced Toxic Cardiomyopahty # HFrEF, EF 15-20% per January 2024 # LV thrombus per echo from January on Eliquis # Hypertensive urgency # Methamphetamine abuse disorder ? Patient presented with worsening shortness of breath, chest pain and mild cough for last couple of days. He also has lower extremity swelling/edema. Prominent JVD noticed.Echocardiogram from January 2024 showed dilated LV. Severe systolic dysfunction. Severe global hypokinesis. Large thrombus near apex 1.5 x 1.8 cm. Moderate RV dilation. Severe biatrial dilation. Ascending aorta mildly dilated 3.6 cm. Mild to moderate MR. ?Patient was given Lasix 80 mg x 1, hydralazine 10 mg x 1. ?Patient was prescribed Lasix 40 mg once a day, Eliquis 5 mg twice a day and Entresto at home ? Patient has significant improvement in shortness of breath and lower extremity swelling. ? No anxiety observed today on the bedside. Plan: ? Patient stable from cardiology standpoint to be discharged today ? Recommended to continue PO Bumex 2 mg once a day, cont metoprolol succinate 25 mg twice daily or change to metoprolol succinate XL 50 mg once a day and Eliquis 5 mg twice daily ? Monitor strict GABRIELLE's, fluid restriction 1500 cc daily, daily weight ? Kidney function remains stable at 1.6 ? Monitor vitals closely ? Replete electrolytes as necessary ? Keep magnesium above 2 and potassium above 4 ? Patient needs close follow-up for compliance of medications ? Continue CIWA protocol and Librium as needed # NSTEMI type II likely supply demand ischemia ?Initial troponin I was elevated at 1.9 down trended to 1.5. ? EKG did not show new ST-T changes. Plan: ? Troponin I down trended ? Monitor patient for signs symptoms of chest pain or shortness of breath ? Monitor vitals Other active problems: # GEOVANY on CKD stage IIIa # Normocytic anemia # Thrombocytopenia # Electrolyte disturbance # Hypokalemia # Alcohol withdrawal alcohol use disorder on restraints # History of chronic osteomyelitis left foot, # History of hep C and medication noncompliance Rest of the management as per primary care team. -- Thank you very much for consulting cardiology team. Recommended to continue Bumex 2 mg once a day, continue metoprolol succinate 25 mg twice daily. Continue Eliquis 5 mg twice daily. Patient stable from cardiology standpoint to be discharged today. Plan of care discussed with manager clinic, Dr. Sharan Collier MD, PGY 2
--- NOTE | 2024-05-06 15:38 | ESDS_ITS ---
<Statement entered by Jose Desir DO - 05/06/24 21:57> Senior attestation: Patient was examined and case was reviewed with team including attending physician. Note reviewed, I agree with most of its contents and agree with the patient's care. Jose Desir DO PGY-3 Planned Discharge Date 05/06/24 DS: Providers Provider Date of admission: 04/29/24 11:54 Primary care physician: Physician No Primary/Family Admitting Provider: Pieter Lyons DO Attending Provider on Admission: Ailin Galloway DO Consults: 04/29/24 12:23 Consult to Cardiology Stat Comment: CHF Exacerbation Consulting Provider: Misael Tsang Attending Provider on DC: Pieter Lyons DO Discharging Provider: Pieter Lyons DO Anticipated date of discharge: 05/06/24 DS: Diagnosis Problem List Completed Was Problem List Reviewed/Reconciled?: Yes Hospital Course Hospital Course Hospital course: Hospital course: Mr. 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 Patient had increased oxygen requirement and was placed on supplemental oxygen, was started on IV Bumex for diuresis, was placed on fluid restriction, strict intake and output was obtained with daily weights, cardiology was consulted due to concern of left ventricle thrombus. He also had significant troponin elevation in the ED, denied any chest pain and EKG was negative for any ST elevation, eventually troponins down trended. Patient's hospital course was complicated by alcohol and methamphetamine withdrawal for which patient was started on Librium, CIWA score was obtained and patient was given Ativan on as needed basis. Patient responded well to IV diuresis and CIWA protocol, eventually patient's hypoxic respiratory failure resolved and symptoms of withdrawal subsided. Patient continues to use methamphetamine hence is not eligible candidate for LifeVest/ICD placement, patient counseled on risks of methamphetamine use, patient verbalized understanding. Further plan is to discharge patient to homeless residential and follow-up with primary care physician in 1 week. Patient will be discharged on Bumex 2 mg p.o. daily, Eliquis 5 mg twice daily, aspirin 81 mg daily, metoprolol succinate 25 mg twice daily at orvastatin 40 mg at bedtime and potassium chloride 10 mEq daily. Patient responded well to hospital treatment and patient is stable for discharge. 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 #History of hypertension. #Chronic apical thrombus left ventricle #NSTEMI type II, demand ischemia #Hyperlipidemia. #Chronic kidney disease stage IIIa #Alcohol dependence with withdrawal #Transaminitis #Substance use disorder. #Homelessness. #Methamphetamine Use #History of hepatitis C. #Chronic left foot osteomyelitis Case discussed with Attending Dr. Lyons and Dr. Desir PGY3. Leilani Rojas PGY1 Status at Discharge Functional status at discharge: independent ambulation Overall status at discharge: patient is back to baseline Time Spent with Patient Time attestation: Total time spent providing and/or coordinating discharge services: Greater than 30 minutes Time spent: Greater than 30 minutes Exam Vital Signs Temp Pulse Resp BP Pulse Ox O2 Del Method O2 Flow Rate 97.6 F 82 17 117/88 H 94 L Room Air 1 05/06/24 10:04 05/06/24 10:04 05/06/24 10:04 05/06/24 10:04 05/06/24 10:04 05/06/24 10:04 05/05/24 04:00 FiO2 2 05/04/24 12:31 Narrative Exam GENERAL APPEARANCE: Patient is AOx3, generally well-appearing male in no acute distress. HEENT: NC, AT. MMM. EOMI, clear conjunctiva, oropharynx clear. NECK: Supple without lymphadenopathy. No stiffness or restricted ROM. HEART: Regular rate and regular rhythm, normal S1/S2, no m/r/g LUNGS: Bilateral crackles heard on auscultation, wheezing heard bilaterally ABDOMEN: Soft, nontender, nondistended with good bowel sounds heard. BACK: No CVAT, no obvious deformity. EXTREMITIES: No edema noticed on both lower extremities NEUROLOGICAL: Grossly nonfocal. Alert and oriented, moving all 4 extremities. CN not formally tested but appear grossly intact. Skin: Warm and dry without any rash. Discharge Plan Plan Patient Disposition: HOME (Self Care) Patient condition on transfer: Stable Prescriptions/Referrals Prescriptions/Med [facility] 2 mg PO QDAY 14 Days Qty: 14 0RF metoprolol succinate 25 mg capsule,sprinkle,ER 24hr 25 mg PO BID 14 Days Qty: 28 0RF Eliquis 5 mg tablet 5 mg PO BID 14 Days Qty: 28 0RF aspirin 81 mg tablet,chewable 81 mg PO QDAY 14 Days Qty: 14 0RF atorvastatin 40 mg tablet 40 mg PO QPM 14 Days Qty: 14 0RF potassium chloride 10 mEq tablet extended release 10 meq PO QDAY 14 Days Qty: 14 0RF Referrals: No Primary/Family,Physician [Primary Care Provider] - Leilani Rojas MD [Resident] - (If you are unable to follow up with PCP you can follow up with [facility], Call [phone] to make an appointment.) Patient/Caregiver Discharge Instructions Discharge Activity: activity as tolerated Other Discharge Activity Instructions:: Follow up with PCP in 1 week. Follow up with cardiology in 1-2 weeks. Continue Metoprolol Succinate 25 twice daily Continue Bumex 2 mg once daily. Continue Eliquis 5mg twice daily. Continue Aspirin 81mg daily. Continue Atorvastatin 40mg daily. Advised to stop using Methamphetamine. If you are unable to follow up with PCP you can follow up with [facility], Call [phone] to make an appointment. Other Discharge Diet Instructions: Cardiac Diet, low sodium, limit fluid intake to 1500cc daily. Education Materials: Apixaban oral tablets, Heart Failure Print Language: Wallisian Stand Alone Forms: Vera Award Info., Patient Portal Info Letter Discharge Order Discharge Orders: Discharge (Routine); Ordered 05/06/24 Ordered By: Leilani Rojas Quality Discharge Quality Measures VTE prophylaxis Attestestation MD Attestation I have discussed and was present for the essential components of the discharge history, physical examination, diagnosis, and discharge treatment plan with the resident. I agree with the patient's discharge care as documented by the resident and amended herein by me. Nahun Lyons DO. The patient understood all discharge instructions, all questions were answered satisfactorily. The patient was instructed to return to the Emergency Department is symptoms worsened or persisted. Patient was stable, tolerating p.o. intake and ambulatory and afebrile at time of discharge. Although this document has been carefully reviewed, there may still be some phonetic and other typographical errors. These errors are purely grammatical due to imperfections in the software program and should not be construed in any way to compromise the substance of the patient's medical care during this visit.
== END 2024-05-06 10:48 | disposition home or self-care (01) | DRG 194 ==
LOC: SERX 11:30 → SERHOLD 12:24 → S2NX 22:43 → S3SX 05-05 23:49
PROVIDERS: Admitting Provider Student in an Organized Health Care Education/Training Program; Emergency Provider Emergency Medicine; Visit Provider Internal Medicine
DX: I13.0 Hypertensive heart and chronic kidney disease with heart failure and stage 1 through stage 4 chronic kidney disease, or unspecified chronic kidney disease (principal); J96.01 Acute respiratory failure with hypoxia; I16.0 Hypertensive urgency; I44.0 Atrioventricular block, first degree; I50.23 Acute on chronic systolic (congestive) heart failure; I21.A1 Myocardial infarction type 2; N18.31 Chronic kidney disease, stage 3a; E78.5 Hyperlipidemia, unspecified; F10.239 Alcohol dependence with withdrawal, unspecified; I42.0 Dilated cardiomyopathy; F41.9 Anxiety disorder, unspecified; I25.2 Old myocardial infarction; I42.7 Cardiomyopathy due to drug and external agent; M86.672 Other chronic osteomyelitis, left ankle and foot; I51.3 Intracardiac thrombosis, not elsewhere classified; F15.13 Other stimulant abuse with withdrawal; D64.9 Anemia, unspecified; D69.6 Thrombocytopenia, unspecified; E87.6 Hypokalemia; N17.9 Acute kidney failure, unspecified; Z86.19 Personal history of other infectious and parasitic diseases; Z59.02 Unsheltered homelessness; Z91.148 Patient's other noncompliance with medication regimen for other reason; Z78.1 Physical restraint status; Z91.119 Patient's noncompliance with dietary regimen due to unspecified reason; Z91.199 Patient's noncompliance with other medical treatment and regimen due to unspecified reason
CPT/HCPCS: 36415; 71045; 80053; 80061; 80307; 83036; 83605; 83735; 83880; 84100; 84443; 84484; 85014; 85018; 85025; 85610; 85730; 87400; 87811; 93005; 93225; 94640; 99291; A9270; J0360; J1940; J2060; J3475; J3490

== ENCOUNTER 2024-05-16 14:08 | Emergency (ER) | payer MEDICAID, SELFPAY ==
[2024-05-16 14:23] VITALS: BP 145/88; PULSE 74; RESP 19; TEMP 36.7; O2SAT 97
[2024-05-16 14:24] VITALS: BMI 28.8
[2024-05-16 14:27] VITALS: PULSE 96; RESP 22; O2SAT 97
--- NOTE | 2024-05-16 14:51 | EKG_ITS ---
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: : [id number] Requested By: Naren Gould Order Number: [id number] Reading MD: Naren Gould Measurements Intervals [place] Rate: 106 P: 60 CT: 204 QRS: -49 QRSD: 110 T: 74 QT: 416 QTc: 552 Interpretive Statements SINUS TACHYCARDIA LEFT ATRIAL ENLARGEMENT [-0.15mV P WAVE IN V1/V2] MODERATE T-WAVE ABNORMALITY, CONSIDER LATERAL ISCHEMIA [-0.1+ mV T WAVE IN I/aVL/V5/V6] Compared to ECG 04/30/2024 17:53:53 Atrial abnormality now present T-wave abnormality now present Possible ischemia now present Right bundle-branch block no longer present Myocardial infarct finding no longer present /store/S0/[id number]
--- NOTE | 2024-05-16 14:51 | XR_ITS ---
Examination: PA lateral chest 2 views TECHNIQUE: Upright PA lateral chest 2 views Exam date and time: The second 2023 1511 hours Comparison April 30, 2024 INDICATIONS: Onset chest pain today. FINDINGS: Mild to moderate CHF Moderate enlargement cardiac contour Prominent vascular congestion with perihilar basilar edema Fluid in the fissures on the lateral view IMPRESSION: Mild to moderate CHF
--- NOTE | 2024-05-16 14:52 | PD.EDRME ---
Rapid Medical Screening Exam RME Arrival date/time: 05/16/24 14:08 64-year-old male with a history of CHF, elevated troponin, methamphetamine abuse and hypertension reports with complaints of chest and abdominal pain x 2 days Chief Complaint: Abdominal Pain Time Seen by Provider: 05/16/24 14:15 Vital signs: Vital Signs Temperature 98.1 F 05/16/24 14:23 Pulse Rate 74 05/16/24 14:23 Respiratory Rate 19 05/16/24 14:23 Blood Pressure 145/88 H 05/16/24 14:23 Pulse Oximetry (%) 97 05/16/24 14:23 Oxygen Delivery Method Room Air 05/16/24 14:23
[2024-05-16 15:32] LABS: Basophils # (Auto) 0.1 Thou/mm3 (0.0-0.2); Basophils % (Auto) 1 % (0-2.5); Eosinophils # (Auto) 0.2 Thou/mm3 (0.0-0.5); Eosinophils % (Auto) 2 % (0-10); Hemoglobin 12.7 g/dL (13.5-16.0); Immature Granulocytes % (Auto) 0 % (0-0); Immature Granulocytes Auto 0.02 Thou/mm3 (0.00-0.00); Lymphocytes # (Auto) 0.7 Thou/mm3 (1.0-4.8); Lymphocytes % (Auto) 11 % (10-50); Mean Corpuscular HGB Conc 32.6 g/dl (31.0-37.0); Mean Corpuscular Hemoglobin 28.3 pg (25.0-35.0); Mean Corpuscular Volume 87 fL (80-100); Monocytes # (Auto) 0.9 Thou/mm3 (0.0-0.8); Monocytes % (Auto) 14 % (0-12); Neutrophils # (Auto) 4.8 Thou/mm3 (1.8-7.7); Neutrophils % (Auto) 72 % (37-80); Nucleated Red Blood Cell # 0.02 Thou/mm3 (0.00-0.00); Nucleated Red Blood Cell % 0 /100 WBC (0); Platelet Count 106 Thou/mm3 (140-440); RDW Standard Deviation 55.8 fL (35.1-43.9); Red Blood Count 4.49 Miln/mm3 (4.50-5.90); White Blood Count 6.7 Thou/mm3 (3.8-10.6)
[2024-05-16 16:01] LABS: Alanine Aminotransferase 39 U/L (10-49); Albumin, Serum 4.1 gm/dL (3.4-4.8); Albumin/Globulin Ratio 1.4 (1.2-2.2); Alkaline Phosphatase 126 U/L (46-116); Anion Gap 13 (7-16); Aspartate Amino Transferase 46 U/L (0-34); BUN/Creatinine Ratio 16 Ratio (12-20); Bilirubin,Total 1.9 mg/dL (0.3-1.2); Blood Urea Nitrogen 26 mg/dL (9-23); Calcium 8.6 mg/dL (8.3-10.6); Calcium (Corrected) 8.6 mg/dL (8.5-10.1); Carbon Dioxide 22.3 mMol/L (20.0-31.0); Chloride 99 mMol/L (98-107); Creatinine (Component) 1.6 mg/dL (0.6-1.3); Glucose 80 mg/dL (74-106); Osmolality,Calculated 271 (275-295); Potassium 4.3 mMol/L (3.4-5.1); Sodium 134 mMol/L (136-145); Total Protein 7.1 gm/dL (5.7-8.2); eGFR 48 See Note
[2024-05-16 16:03] LABS: Troponin I 0.125 ng/mL (0.0-0.045)
--- NOTE | 2024-05-16 20:02 | PD.EDABDPN ---
ED Abdominal Pain RME/HPI General Chief Complaint: Abdominal Pain Stated complaint: ABDOMINAL PAIN Time seen by provider: 05/16/24 14:15 Arrival date/time: 05/16/24 14:08 RME / HPI RME / HPI narrative: 05/16/24 14:08 64-year-old male with a history of CHF, elevated troponin, methamphetamine abuse and hypertension reports with complaints of chest and abdominal pain x [address] DELANEY MAIN ED EVALUATION: 64 year old male presents to the Emergency Department [facility] with complaints of chest pain and abdominal pain onset yesterday. Pain radiates up to the chest area. Pain is described as aching and rated mild to moderate in severity. PMHx: Congestive heart failure. Cardiomyopathy. Social Hx: Methamphetamine, marijuana. Related Data Previous Rx's ?Medication ?Instructions ?Recorded doxycycline monohydrate 100 mg 100 mg PO BID #14 caps 05/16/24 capsule promethazine 6.25 mg/5 mL oral 6.25 mg (5 mL) PO TID PRN cough 05/16/24 syrup #120 mL albuterol sulfate 90 mcg/actuation 1 inh inhalation QID PRN shortness 05/19/24 aerosol inhaler of breath or wheezing #8.5 grams apixaban 5 mg tablet (Eliquis) 5 mg PO BID 2 weeks #28 tabs 05/19/24 aspirin 81 mg chewable tablet 81 mg PO QDAY 2 weeks #14 tabs 05/19/24 atorvastatin 40 mg tablet 40 mg PO QPM 2 weeks #14 tabs 05/19/24 bumetanide 2 mg tablet 2 mg PO QDAY 2 weeks #14 tabs 05/19/24 metoprolol succinate 25 mg capsule 25 mg PO BID 2 weeks #28 ea 05/19/24 sprinkle, ext. release 24 hr Allergies Allergy/AdvReac Type Severity Reaction Status Date / Time No Known Allergies Allergy Verified 05/21/24 19:15 Review of Systems Review of Systems Systems Reviewed: All systems reviewed, normal except as documented Narrative Review of Systems: GEN: No fever, no chills, no weight loss EYES: No discharge, no visual changes, no pain HEENT: No ear pain, no congestion, no sore throat PULM: No shortness of breath, no cough, no congestion CV: + chest pain, no dyspnea on exertion, no palpitations GI: No nausea, no vomiting, no diarrhea, + abdominal pain, no constipation : No frequency, no urgency and no dysuria MUSC/SKEL: No joint pain, no back pain SKIN: No rash PSYCH: No hallucinations, no depression HEME/LYMPH: No easy bleeding or bruising tendencies NEURO: No weakness, no headache Past Medical History Past Medical History NEUROLOGIC: Positive Cerebrovascular Accident CARDIAC: Positive Congestive Heart Failure and Hypertension RESPIRATORY: Positive Asthma GASTROINTESTINAL: Positive Gastrointestinal Disorders, Hepatitis and Ulcer GENITOURINARY: Positive Inguinal Hernia MUSCULOSKELETAL: Positive Musculoskeletal Disorders, Arthritis, Gout and Osteomyelitis HEMATOLOGIC: Positive Anemia PSYCHO/SOCIAL: Positive Recreational Drug Use and Anxiety Family History FAMILY HISTORY: Positive Family Psychiatric Problems, Family Cardiac Disorders and Family Cancer Surgical History SURGICAL: Positive Abdominal Surgery Social History SMOKING STATUS: Former smoker SUBSTANCE USE: marijuana and methamphetamine ALCOHOL: Never ED Exam Narrative Physical exam: GENERAL APPEARANCE: alert and oriented x 4, well-developed, well-nourished, no acute distress VITALS: All vitals were reviewed and the pulse ox is 97% on room air, which is normal according to my interpretation. HEENT: Normocephalic, atraumatic; pupils equal, round, reactive to light; EOMI; mucous membranes pink, moist; oropharynx clear NECK: Supple LUNGS: CTABL; no wheezes, no rales, no rhonchi HEART: Regular rate, regular rhythm; normal S1, S2; no murmurs ABDOMEN: non distended; normal BS; soft, no tenderness, no guarding, no rebound; no masses, no organomegaly, no hernia BACK: no CVA tenderness EXTREMITIES: atraumatic; no edema NEUROLOGIC: awake; alert and oriented x4; cranial nerves II-XII grossly intact; no focal sensory or motor deficits PSYCHIATRIC: appropriate mood and affect SKIN: warm, dry, normal color; no rashes Course Quality Measures none Orders Category Date Time Status EKG (ED ONLY) *Do not use* NOW Care 05/16/24 14:52 Completed EKG (ED Only) Stat Exams 05/16/24 14:51 Draft XR chest 2V Stat Exams 05/16/24 14:51 Completed CBC Stat Lab 05/16/24 15:10 Completed CMP [Comprehensive Metabolic Panel] Stat Lab 05/16/24 15:10 Completed Troponin I Stat Lab 05/16/24 15:10 Completed Doxycycline [Vibramycin] Med 05/16/24 20:06 Discontinued 100 mg PO X1 ONE Furosemide [Lasix] Med 05/16/24 20:12 Discontinued 20 mg PO X1 ONE Promethazine HCl Syrup [Promethazine Hcl Syrup] Med 05/16/24 20:06 Discontinued 10 mg PO X1 ONE Vital Signs Vital signs: Vital Signs Temperature 98.1 F 05/16/24 14:23 Pulse Rate 74 05/16/24 14:23 Respiratory Rate 19 05/16/24 14:23 Blood Pressure 145/88 H 05/16/24 14:23 Pulse Oximetry (%) 97 05/16/24 14:23 Oxygen Delivery Method Room Air 05/16/24 14:23 Abdominal Pain MDM MDM Narrative MDM Narrative:: I, Amalia Snow, hugo scribing for and in the presence of Dr. Delaney. EKG: Dated 05/16/2024 at 1502 hours. Interpreted by me: sinus tachycardia, rate 106, QTc 552, Patient data External records reviewed:: [facility] previous records (Reviewed last admission record from 04/29/24 through 05/06/24, patient admitted for the following: Acute exacerbation of CHF (congestive heart failure), Methamphetamine abuse, Hypertensive urgency.) and EMS form Clinical information provided by:: patient and EMS Social determinants that could affect healthcare access:: substance use (Methamphetamine, marijuana.) Patient has the following chronic illnesses:: Congestive heart failure. Cardiomyopathy. How is presenting disease/condition affected by chronic disease/condition?: exacerbated by Evaluation data The following diagnostics were reviewed and interpreted by me:: lab results, radiology exam(s) and EKG tracing(s) Lab and/or radiology exams considered but not ordered:: none Interpretation Summary: Procedure(s): XR chest 2V Accession Number(s): [id number] cc: Aneesh Acuna MD; Naren Gould PA-C~ Examination: PA lateral chest 2 views TECHNIQUE: Upright PA lateral chest 2 views Exam date and time: The second 2023 1511 hours Comparison April 30, 2024 INDICATIONS: Onset chest pain today. FINDINGS: Mild to moderate CHF Moderate enlargement cardiac contour Prominent vascular congestion with perihilar basilar edema Fluid in the fissures on the lateral view IMPRESSION: Mild to moderate CHF Dictated By: Aneesh Acuna MD Medications / Prescriptions Medications or Prescriptions considered but not ordered:: none Medication administrations:: Medication Administration History Discontinued Medications Doxycycline Hyclate (Doxycycline 100 Mg Tablet) 100 mg PO X1 ONE Stop: 05/16/24 20:07 Last Admin: 05/16/24 21:02 Dose: 100 mg Documented By: CVL Furosemide (Furosemide 20 Mg Tablet) 20 mg PO X1 ONE Stop: 05/16/24 20:13 Last Admin: 05/16/24 21:02 Dose: 20 mg Documented By: CVL Promethazine HCl (Promethazine Hcl Syrup 6.25 Mg/5 Ml Udc) 10 mg PO X1 ONE Stop: 05/16/24 20:07 Last Admin: 05/16/24 21:04 Dose: 10 mg Documented By: CVL see above Consultations Consultation(s) initiated? (list below): No Diagnosis Differential diagnosis abdominal pain: other (Bronchitis, pneumonia, GERD) Most likely diagnosis given after review of the tests above:: Bronchitis Cough Admission Indicated Admission indicated?: not indicated Admission Request Was there a request for admission?: No Disposition Plan Disposition Plan: Discharge Discharge Attestation Discharge Attestation: The patient and all family members were given an opportunity to ask questions and understood the discharge instructions. Discharge instructions specifically effects, indications for sooner follow up or return to the emergency department, and the expected course of current diagnosis. Patient condition: Stable Discharge Plan Plan Patient Disposition: HOME (Self Care) Prescriptions/Referrals Prescriptions/Med Rec: New doxycycline monohydrate 100 mg capsule 100 mg PO BID Qty: 14 0RF promethazine 6.25 mg/5 mL syrup 6.25 mg PO TID PRN (Reason: cough) Qty: 120 0RF No Action Eliquis 5 mg tablet 5 mg PO BID 14 Days Qty: 28 0RF aspirin 81 mg tablet,chewable 81 mg PO QDAY 14 Days Qty: 14 0RF atorvastatin 40 mg tablet 40 mg PO QPM 14 Days Qty: 14 0RF bumetanide 2 mg tablet 2 mg PO QDAY 14 Days Qty: 14 0RF metoprolol succinate 25 mg capsule,sprinkle,ER 24hr 25 mg PO BID 14 Days Qty: 28 0RF albuterol sulfate 90 mcg/actuation HFA aerosol inhaler 1 inh inhalation QID PRN (Reason: shortness of breath or wheezing) Qty: 8.5 0RF Referrals: No Primary/Family,Physician [Primary Care Provider] - In 1 week Problem List Clinical Impression: Bronchitis, Cough Patient/Caregiver Discharge Instructions Education Materials: ED Upper Resp Infec Abx Tx Print Language: Egyptian Stand Alone Forms: Vera Award Info., Patient Portal Info Letter
[2024-05-16 21:02] VITALS: BP 148/80; PULSE 70
[2024-05-16] MEDS: Furosemide 20 MG TABLET PO (21:02)
[2024-05-16] MEDS: DOXYCYCLINE 100 MG TABLET PO (21:02)
[2024-05-16] MEDS: PROMETHAZINE HCL SYRUP 6.25 MG/5 ML UDC 10 MG PO (21:04)
[2024-05-16 21:22] VITALS: RESP 18
== END 2024-05-16 21:23 | disposition home or self-care (01) ==
PROVIDERS: Physician Assistant; Emergency Provider Emergency Medicine
DX: J40 Bronchitis, not specified as acute or chronic (principal); R00.0 Tachycardia, unspecified; I11.0 Hypertensive heart disease with heart failure; I50.9 Heart failure, unspecified; I42.9 Cardiomyopathy, unspecified; Z87.891 Personal history of nicotine dependence; Z79.01 Long term (current) use of anticoagulants
CPT/HCPCS: 36415; 71046; 80053; 84484; 85025; 93005; 99283; A9270

== ENCOUNTER 2024-05-19 10:50 | Outpatient (AMB) | payer MEDICAID, SELFPAY ==
[2024-05-19 11:23] VITALS: BP 124/91; PULSE 105; RESP 16; TEMP 36.4; O2SAT 85; BMI 25.6
--- NOTE | 2024-05-19 11:23 | PD.RESCLINIC ---
Vital Signs 05/19/24 11:23 Height 1.75 m Height Method Stated Weight 78.528 kg Weight Measurement Method Standing Scale BMI 25.6 BP 124/91 H Blood Pressure Source Automatic Cuff Blood Pressure Location Left Upper Arm Position Sitting Respiration 16 Pulse 105 H Pulse Source Monitor Temp 97.6 F Temp Source Oral Pulse Oximetry (%) 85 L Oxygen Delivery Method Room Air Allergies/Meds Allergies & Medications Allergies No Known Allergies Allergy (Verified 06/11/24 12:46) Medication Reconciliation doxycycline monohydrate 100 mg capsule 100 mg PO BID #14 caps 05/16/24 [Rx Confirmed 05/19/24] promethazine 6.25 mg/5 mL oral syrup 6.25 mg (5 mL) PO TID PRN cough #120 mL 05/16/24 [Rx Confirmed 05/19/24] albuterol sulfate 90 mcg/actuation aerosol inhaler 1 inh inhalation QID PRN shortness of breath or wheezing #8.5 grams 05/19/24 [Rx] albuterol sulfate 90 mcg/actuation aerosol inhaler inhalation 05/30/24 [History] amoxicillin 875 mg tablet mg 05/30/24 [History] apixaban 5 mg tablet (Eliquis) 5 mg PO BID 05/30/24 [History Confirmed 05/30/24] aspirin 81 mg chewable tablet 81 mg PO QDAY 05/30/24 [History Confirmed 05/30/24] atorvastatin 40 mg tablet 40 mg PO 1XD 05/30/24 [History Confirmed 05/30/24] bumetanide 2 mg tablet mg 05/30/24 [History] doxycycline hyclate 100 mg tablet mg 05/30/24 [History] metoprolol succinate 25 mg tablet,extended release 24 hr mg PO 05/30/24 [History] MA Intake Visit Data Collection New Patient or Established: Established Patient (seen at [facility] within 3 years) Seen by Clinical Staff ONLY (RN/MA): No Pain Present Currently: Yes Pain Location: Chest Pain scale:: 5 Pain Scale Used: White-Ortiz/Numerical PCP or OBGYN visit in last 3 months: Yes Smoking Status Smoking Status: Former smoker Immunization / Flu Flu Vaccine in the Last 12 Months: No Flu Vaccine Exclusion Criteria: No Exclusion Criteria Past Medical History Past Medical History NEUROLOGIC: Positive Cerebrovascular Accident; Negative Neurological Disorders or Seizures CARDIAC: Positive Congestive Heart Failure and Hypertension; Negative Cardiac Disorders (lv thrombus), Atrial Fibrillation, Angina, Atherosclerotic Heart Disease, Aneurysm or Cellulitis RESPIRATORY: Positive Asthma; Negative Chronic Obstructive Pulmonary Disease (COPD) GASTROINTESTINAL: Positive Gastrointestinal Disorders, Hepatitis and Ulcer GENITOURINARY: Positive Inguinal Hernia; Negative Renal Disease MUSCULOSKELETAL: Positive Arthritis, Gout and Osteomyelitis ENDOCRINE: Negative Diabetes Mellitus Type 1 or Diabetes Mellitus Type 2 HEMATOLOGIC: Positive Anemia; Negative Sickle Cell Disease PSYCHO/SOCIAL: Positive Recreational Drug Use and Anxiety OTHER HISTORY: Negative Blood Transfusions, Blood Transfusion Reaction, Anesthesia Reactions, Clostridium Difficile or Cancer Family History FAMILY HISTORY: Positive Family Psychiatric Problems, Family Cardiac Disorders and Family Cancer; Negative Family Respiratory Disorders or Family Gastrointestinal Problems Surgical History SURGICAL: Positive Abdominal Surgery; Negative Cardiac Surgery, Pacemaker, Ear Surgery or Joint Replacement Social History SMOKING STATUS: Smoking status: Former smoker ALCOHOL: Alcohol Intake: Never ALCOHOL FREQUENCY: Alcohol Intake Frequency: 3 or More Drinks per Day HOUSING: Housing: Homeless LIVES WITH: Lives With: Alone Patient Portal [employer] Social History Living Situation History Housing: Homeless Housing Other:: Pt is homeless Tobacco History Smoking Status: Former smoker Alcohol History Alcohol Intake: Never Alcohol Intake Frequency: 3 or More Drinks per Day Substance Use History Substance Use: Meth Review of Systems Report any current symptoms Only answer those that you have currently: Past Medical History Past Medical History Have you ever been diagnosed with any of the following: Neurological Problems Cerebrovascular Accident (CVA): Yes Seizures: No Cardiology Problems Atrial Fibrillation: No Angina: No Atherosclerotic Heart Disease: No Aneurysm: No Congestive Heart Failure: Yes Cellulitis: No Hypertension: Yes Respiratory Problems Chronic Obstructive Pulmonary Disease (COPD): No Asthma: Yes Stomache/Intestinal Problems Hepatitis: Yes Ulcer: Yes Genital/Urinary Problems Renal Disease: No Inguinal Hernia: Yes Musculoskeletal Problems Arthritis: Yes Gout: Yes Osteomyelitis: Yes Endocrine Problems Diabetes Mellitus Type 1: No Diabetes Mellitus Type 2: No Blood Problems Anemia: Yes Sickle Cell Disease: No Psychologic Problems Recreational Drug Use: Yes Anxiety: Yes Other Problems Blood Transfusions: No Blood Transfusion Reaction: No Anesthesia Reactions: No Clostridium Difficile: No Cancer: No Surgical History Pacemaker: No History of Present Illness HPI Narrative 03/03/24: Miguelito is a 63 y/o male with PMHx HFrEF (15-20%, EF Jan 2024), HTN, substance abuse (Meth), Chronic osteomyelitis of the L foot, hep C and medication non-compliance who walks into the [facility] is regards to a complaint of shortness of breath, present at rest, worse on exertion with associated bilat LE edema, but no associated CP. Pt reports that he recently lost his medications that includes his Eliquis, Entresto and his water pill (Lasix) and has not taken them for about a week. He does not know where he placed them and says that his SOB has been worsening. He reports a history of symptoms similar to this in the past. He also is complaining of some pain in his L foot, worsened with walking, however, likely secondary due to his chronic osteomyelitis. He has previously been in the ER in early February for a similar complaint of SOB 2/2 exaceration of HF in which pt was medically managed but not admitted as he continues to be non-compliant with his medications. He has no other complaints at this time. 05/19/2024: Miguelito is a 64-year-old male who walks into the office for follow-up of an ED visit in which he was being evaluated for bronchitis. He was worked up and was found to have possible pneumonia or mild to moderate CHF pattern. He was discharged on promethazine and doxycycline. He comes to the office today to follow-up. He says he is short of breath and is wondering why he is short of breath. He was not aware of his heart function being 15 to 20%. He says that he takes his medications as he can but he loses them consistently due to living into a homeless group home. He says he does not see a heart doctor. He says that he stays at a homeless group home but is unsure of what the name of it is called but says its across a [facility] building and [facility] No other complaints this time Review of Systems Review of Systems Narrative Review of Systems: Constitutional: No fever, chills, fatigue, weakness, weight loss HEENT: No eye pain, vision loss, ear pain, hearing loss, dysphagia, Cardiovascular: No chest pain, palpitations, edema, pain with walking Respiratory: + cough, + shortness of breath, + wheezing GI: No NVD, abdominal pain, constipation, blood in stool, loss of appetite, heartburn Extremities: No presence of pitting edema MSK: No back pain, joint pain, joint swelling Neuro: No dizziness, numbness, weakness, headaches, seizures, tremors Psych: No anxiety, depression Objective/Exam Narrative Physical exam: General: AAOx3, in some mild distress, disheveled HEENT: Poor dentition conjunctiva clear, EOMI, PERRLA, Cardiovascular: S1, S2, radial pulses +2 bilat, RRR, no JVD Pulmonary: Wheezing heard throughout lung yu, some crackles possibly heard in lower lungs bilaterally, cough present GI: No tenderness to light or deep palpitation, no guarding, rigidity, rebound tenderness or distension Extremities +2 pitting edema pitting edema in lower extremities bilaterally, dorsalis pedis pulses +2 bilaterally Neuro: AAOx3, no focal motor or sensory deficits in the UE or LE bilat Psych: Cooperative Assessment & Plan Diagnosis / Problem List (1) Acute exacerbation of CHF (congestive heart failure): Status: Acute Qualifiers: Heart failure type: systolic Qualified Code(s): I50.23 - Acute on chronic systolic (congestive) heart failure Assessment & Plan: Pt has a chronic hx of HFrEF (EF 15-20 %, January 2024), due to multiple factors of meth abuse, HTN and medication non-compliance. Patient reports that he consistently uses medications due to living in a homeless group home. Says that he has been taking his medicines but is unsure on the ones he does not have currently. He does not see a heart doctor. 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 Does not qualify for oxygen as he does saturates well at baseline. Needs to take medicines, avoid all drugs or alcohol. Will refill medicines, Plan: -Refilled home medications (Entresto, Lasix) -Pt education on medication compliance to avoid further episodes -Limit salt intake less than 2g -Monitor weights as able -To see back patient on Thursday (03/07) -*Home health referral ?*Cardiology referral -ER precautions (2) Chronic osteomyelitis involving left ankle and foot: Status: Acute Assessment & Plan: Pt to have chronic osteomyelitis of L ankle/foot. Pt reports his foot chronically has some skin scars and is unkempt. Pt's foot does not seem to be actively worsening. There are some new skin abrasions and lacerations near his digits. Pt is also complaining of foot pain. Will give some wound care and prescribe abx for pt as well. Has h/o + MRSA nares in previous hospital visits. Considering pt's homeless status and poor hygiene, will continue abx therapy. (3) LV (left ventricular) mural thrombus: Status: Acute Assessment & Plan: Hx of LV mural thrombus, chronic, managed by Eliquis. Low suspicion for obstruction in LE, no sign of necrosis of possible DVT. Will continue with A/C Plan: -Refilled Eliquis 5 mg BID -Pt education on medication compliance Additional Assessment Attending note: I, Galileo Gates MD, attest that I was physically present for the ennis portions of the service and evaluated the patient with the resident and I reviewed and discussed the case with the resident and agree with the resident's findings and plans of care as documented above. Follow-up visit from emergency room visit where patient was evaluated for bronchitis, found to have possible pneumonia versus mild to moderate CHF pattern. Patient was discharged on doxycycline. Patient complaining of dyspnea. Suspect secondary to HFrEF. Medication regimen reviewed. Patient has often lost his medications due to being in a homeless group home. Medications refilled. Patient educated regarding congestive heart failure. Eliquis refilled. Patient may finish doxycycline as prescribed. At future visit, we will need to see what additional social support we may be able to provide for patient. Galileo Gates MD Additional Plan Patient case discussed with attending physician Dr. Yajaira Duron DO PGY-1 Physician Billing Established Patient Established Patient: E/M Level 3-CPT 31559 Office Procedures [facility] Level of Care Nursing/Assessment Patient Status: Established Patient Nursing Assessment/Reassessment: Medication Reconciliation, Update PMH in EMR and Vital Signs Coordination of Care: Complex Care and Chronic Disease 1-5, Education Complex Pt/Fam and Staff clarify orders Established Patient Charge Established Patient Point Assignment: 85 Established Patient Point Charge: EP Level 3 (80-115)
== END 2024-05-19 12:31 | disposition home or self-care (01) ==
LOC: HODAHC 10:50
PROVIDERS: Supervising Provider Internal Medicine
DX: I50.20 Unspecified systolic (congestive) heart failure (principal); M86.8X7 Other osteomyelitis, ankle and foot; Z86.718 Personal history of other venous thrombosis and embolism; Z79.01 Long term (current) use of anticoagulants; Z59.01 Sheltered homelessness
CPT/HCPCS: 99213; G0463

== ENCOUNTER 2024-05-21 19:11 | Emergency (ER) | payer MEDICAID, SELFPAY ==
[2024-05-21 19:12] VITALS: PULSE 96; RESP 16; O2SAT 99; BMI 27.4
--- NOTE | 2024-05-21 19:16 | EKG_ITS ---
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
[2024-05-21 20:00] VITALS: BP 158/130; PULSE 111; RESP 30; TEMP 37.1; O2SAT 91
--- NOTE | 2024-05-21 20:16 | PD.EDRME ---
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 Chief Complaint: Abdominal Pain Vital signs: Vital Signs Temperature 98.7 F 05/21/24 20:00 Pulse Rate 111 H 05/21/24 20:00 Respiratory Rate 30 H 05/21/24 20:00 Blood Pressure 158/130 H 05/21/24 20:00 Pulse Oximetry (%) 91 L 05/21/24 20:00 Oxygen Delivery Method Room Air 05/21/24 20:00
[2024-05-21 20:48] LABS: Basophils # (Auto) 0.1 Thou/mm3 (0.0-0.2); Basophils % (Auto) 1 % (0-2.5); Eosinophils # (Auto) 0.3 Thou/mm3 (0.0-0.5); Eosinophils % (Auto) 3 % (0-10); Hematocrit 43.3 % (41.0-53.0); Immature Granulocytes % (Auto) 0 % (0-0); Immature Granulocytes Auto 0.05 Thou/mm3 (0.00-0.00); Lymphocytes # (Auto) 1.2 Thou/mm3 (1.0-4.8); Lymphocytes % (Auto) 11 % (10-50); Mean Corpuscular HGB Conc 32.3 g/dl (31.0-37.0); Mean Corpuscular Hemoglobin 28.5 pg (25.0-35.0); Mean Corpuscular Volume 88 fL (80-100); Monocytes # (Auto) 0.9 Thou/mm3 (0.0-0.8); Monocytes % (Auto) 8 % (0-12); Neutrophils # (Auto) 8.7 Thou/mm3 (1.8-7.7); Neutrophils % (Auto) 77 % (37-80); Nucleated Red Blood Cell # 0.02 Thou/mm3 (0.00-0.00); Nucleated Red Blood Cell % 0 /100 WBC (0); Platelet Count 153 Thou/mm3 (140-440); RDW Standard Deviation 58.5 fL (35.1-43.9); Red Blood Count 4.91 Miln/mm3 (4.50-5.90); White Blood Count 11.2 Thou/mm3 (3.8-10.6)
[2024-05-21 20:49] LABS: Lactate (Lactic Acid) 4.1 mMol/L (0.4-2.0)
--- NOTE | 2024-05-21 20:58 | PC.NURSE ---
sepsis called at this time
--- NOTE | 2024-05-21 21:25 | EDNOTE_ITS ---
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 DR. US MAIN ED EVALUATION: 64-year-old male with history of CHF and low EF, methamphetamine use, dilated cardiomyopathy, hep C, presenting to the emergency department with increasing cough, shortness of breath and abdominal pain that has gotten worse over the last 2 to 3 days. The patient states the cough is what is bothering him the most. It is nonproductive and otherwise has subjective fever but does not take it his temperature. The patient will not tell me if he is use drugs recently. He denies vomiting, no diarrhea. Related Data Previous Rx's ?Medication ?Instructions ?Recorded doxycycline monohydrate 100 mg 100 mg PO BID #14 caps 05/16/24 capsule promethazine 6.25 mg/5 mL oral 6.25 mg (5 mL) PO TID PRN cough 05/16/24 syrup #120 mL albuterol sulfate 90 mcg/actuation 1 inh inhalation QID PRN shortness 05/19/24 aerosol inhaler of breath or wheezing #8.5 grams apixaban 5 mg tablet (Eliquis) 5 mg PO BID 2 weeks #28 tabs 05/19/24 aspirin 81 mg chewable tablet 81 mg PO QDAY 2 weeks #14 tabs 05/19/24 atorvastatin 40 mg tablet 40 mg PO QPM 2 weeks #14 tabs 05/19/24 bumetanide 2 mg tablet 2 mg PO QDAY 2 weeks #14 tabs 05/19/24 metoprolol succinate 25 mg capsule 25 mg PO BID 2 weeks #28 ea 05/19/24 sprinkle, ext. release 24 hr Allergies Allergy/AdvReac Type Severity Reaction Status Date / Time No Known Allergies Allergy Verified 05/21/24 19:15 Review of Systems Review of Systems Systems Reviewed: All systems reviewed, normal except as documented Past Medical History Past Medical History NEUROLOGIC: Positive Cerebrovascular Accident; Negative Neurological Disorders or Seizures CARDIAC: Positive Congestive Heart Failure and Hypertension; Negative Cardiac Disorders (lv thrombus), Atrial Fibrillation, Angina, Atherosclerotic Heart Disease, Aneurysm or Cellulitis RESPIRATORY: Positive Asthma; Negative Chronic Obstructive Pulmonary Disease (COPD) GASTROINTESTINAL: Positive Gastrointestinal Disorders, Hepatitis and Ulcer GENITOURINARY: Positive Inguinal Hernia; Negative Renal Disease MUSCULOSKELETAL: Positive Musculoskeletal Disorders, Arthritis, Gout and Osteomyelitis ENDOCRINE: Negative Diabetes Mellitus Type 1 or Diabetes Mellitus Type 2 HEMATOLOGIC: Positive Anemia; Negative Sickle Cell Disease PSYCHO/SOCIAL: Positive Recreational Drug Use and Anxiety OTHER HISTORY: Negative Blood Transfusions, Blood Transfusion Reaction, Anesthesia Reactions, Clostridium Difficile or Cancer Family History FAMILY HISTORY: Positive Family Psychiatric Problems, Family Cardiac Disorders and Family Cancer; Negative Family Respiratory Disorders or Family Gastrointestinal Problems Surgical History SURGICAL: Positive Abdominal Surgery; Negative Cardiac Surgery, Pacemaker, Ear Surgery or Joint Replacement Social History SMOKING STATUS: Former smoker SUBSTANCE USE: marijuana and methamphetamine ED Exam General Limitations: Present no limitations General appearance: Present alert and in no apparent distress Head Head exam: Present atraumatic Eye Eye exam: Present normal appearance, PERRL and EOMI ENT ENT exam: Present normal exam, normal oropharynx and mucous membranes moist Neck Neck exam: Present normal inspection, full ROM and trachea midline Chest Chest inspection: Present normal inspection and symmetric chest wall rise Respiratory Respiratory exam: Present normal lung sounds bilaterally Cardiovascular Cardiovascular exam: Present regular rate, normal rhythm and normal heart sounds Abdominal Exam Abdominal exam: Present soft and normal bowel sounds Extremities Exam Extremities exam: Present normal inspection and full ROM Back Exam Back exam: Present normal inspection and full ROM Neurological Exam Neurological exam: Present alert, oriented X3 and CN II-XII intact Psychiatric Psychiatric exam: Present normal affect and normal mood Skin Skin exam: Present warm, dry, intact and normal color Course Quality Measures none Orders Category Date Time Status Bedside COVID-19 Antigen Test NOW Care 05/21/24 19:15 Completed Bedside Influenza A&B Antigen Test NOW Care 05/21/24 19:15 Completed EKG (ED ONLY) *Do not use* NOW Care 05/21/24 19:16 Completed Insert IV NOW Care 05/21/24 20:16 Completed EKG (ED Only) Stat Exams 05/21/24 19:16 Draft CBC Stat Lab 05/21/24 20:29 Completed Drug Screen,Urine Stat Lab 05/21/24 21:24 Completed Lactate (Lactic Acid) Stat Lab 05/21/24 20:29 Completed Urinalysis, C/S if Indicated Stat Lab 05/21/24 21:24 Completed Albuterol/Ipratr Rt Lacie [Duoneb Rt Lacie] Med 05/21/24 21:30 Discontinued 3 ml INH X1 ONE Sodium Chloride 0.9% 1000 ml [Ns] 1,000 ml Med 05/21/24 20:51 Discontinued IV 999 mls/hr Vital Signs Vital signs: Vital Signs Temperature 98.7 F 05/21/24 20:00 Pulse Rate 111 H 05/21/24 20:00 Respiratory Rate 30 H 05/21/24 20:00 Blood Pressure 158/130 H 05/21/24 20:00 Pulse Oximetry (%) 91 L 05/21/24 20:00 Oxygen Delivery Method Room Air 05/21/24 20:00 Abdominal Pain MDM MDM Narrative MDM Narrative:: Amalia Parker am scribing for and in the presence of Dr. Us. Patient data External records reviewed:: [facility] previous records (Reviewed last ED visit dated 05/16/24, discharged with the following: bronchitis.) Clinical information provided by:: patient Social determinants that could affect healthcare access:: substance use (methamphetamine) Patient has the following chronic illnesses:: CHF and low EF, methamphetamine use, dilated cardiomyopathy, hep C. How is presenting disease/condition affected by chronic disease/condition?: exacerbated by Evaluation data The following diagnostics were reviewed and interpreted by me:: lab results Lab and/or radiology exams considered but not ordered:: none Interpretation Summary: Left AMA Medications / Prescriptions Medications or Prescriptions considered but not ordered:: none Medication administrations:: Medication Administration History Discontinued Medications Albuterol/Ipratropium (Albuterol/Ipratropium (Duoneb) Rt Lacie 3 Ml Nebu) 3 ml INH X1 ONE Stop: 05/21/24 21:31 Sodium Chloride (Ns) 1,000 mls @ 999 mls/hr IV .Q1H1M ONE Stop: 05/21/24 21:51 see above Consultations Consultation(s) initiated? (list below): No Diagnosis Differential diagnosis abdominal pain: abdominal pain, diverticulitis, gastroenteritis, pancreatitis and small bowel obstruction Most likely diagnosis given after review of the tests above:: No official diagnoses at this time, left AMA. Admission Indicated Admission indicated?: not indicated Explain why admission is indicated or not indicated:: AMA Admission Request Was there a request for admission?: No Disposition Plan Disposition Plan: other (specify) (AMA) Discharge Plan Plan Patient Disposition: Left Against Medical Advice Prescriptions/Referrals Prescriptions/Med Rec: No Action Eliquis 5 mg tablet 5 mg PO BID 14 Days Qty: 28 0RF aspirin 81 mg tablet,chewable 81 mg PO QDAY 14 Days Qty: 14 0RF atorvastatin 40 mg tablet 40 mg PO QPM 14 Days Qty: 14 0RF bumetanide 2 mg tablet 2 mg PO QDAY 14 Days Qty: 14 0RF metoprolol succinate 25 mg capsule,sprinkle,ER 24hr 25 mg PO BID 14 Days Qty: 28 0RF albuterol sulfate 90 mcg/actuation HFA aerosol inhaler 1 inh inhalation QID PRN (Reason: shortness of breath or wheezing) Qty: 8.5 0RF doxycycline monohydrate 100 mg capsule 100 mg PO BID Qty: 14 0RF promethazine 6.25 mg/5 mL syrup 6.25 mg PO TID PRN (Reason: cough) Qty: 120 0RF Referrals: No Primary/Family,Physician [Primary Care Provider] - In 1 week Problem List Clinical Impression: Left against medical advice Patient/Caregiver Discharge Instructions Print Language: Moldovan
--- NOTE | 2024-05-21 21:25 | PD.EDABDPN ---
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 Everything is always the same but worse patient just is reporting that everything is worse from his baseline. The patient is complaining of chronic cough, no chest pain, positive shortness of breath, cannot tell me if he is having a fever but states that he feels subjectively hot. Patient does not admit to taking drugs. No vomiting. Related Data Previous Rx's ?Medication ?Instructions ?Recorded doxycycline monohydrate 100 mg 100 mg PO BID #14 caps 05/16/24 capsule promethazine 6.25 mg/5 mL oral 6.25 mg (5 mL) PO TID PRN cough 05/16/24 syrup #120 mL albuterol sulfate 90 mcg/actuation 1 inh inhalation QID PRN shortness 05/19/24 aerosol inhaler of breath or wheezing #8.5 grams apixaban 5 mg tablet (Eliquis) 5 mg PO BID 2 weeks #28 tabs 05/19/24 aspirin 81 mg chewable tablet 81 mg PO QDAY 2 weeks #14 tabs 05/19/24 atorvastatin 40 mg tablet 40 mg PO QPM 2 weeks #14 tabs 05/19/24 bumetanide 2 mg tablet 2 mg PO QDAY 2 weeks #14 tabs 05/19/24 metoprolol succinate 25 mg capsule 25 mg PO BID 2 weeks #28 ea 05/19/24 sprinkle, ext. release 24 hr Allergies Allergy/AdvReac Type Severity Reaction Status Date / Time No Known Allergies Allergy Verified 05/21/24 19:15 ED Exam General Limitations: Present no limitations General appearance: Present alert, in distress, cachectic and other (Talking in full sentences) Head Head exam: Present atraumatic Eye Eye exam: Present normal appearance, EOMI and other (No facial swelling); Absent scleral icterus, conjunctival injection or nystagmus ENT ENT exam: Present normal exam, normal oropharynx and mucous membranes moist Neck Neck exam: Present normal inspection, full ROM, trachea midline and other (No JVD); Absent tenderness Chest Chest inspection: Present normal inspection and symmetric chest wall rise Respiratory Respiratory exam: Present other; Absent respiratory distress, wheezes or stridor Cardiovascular Cardiovascular exam: Present regular rate, tachycardia and normal heart sounds; Absent systolic murmur, diastolic murmur, rubs or gallop Abdominal Exam Abdominal exam: Present soft, guarding and diminished bowel sounds; Absent distention, tenderness, rebound or rigidity Extremities Exam Extremities exam: Present normal inspection, normal capillary refill and pedal edema; Absent joint swelling or calf tenderness Back Exam Back exam: Present normal inspection and full ROM Neurological Exam Neurological exam: Present alert, oriented X3 and CN II-XII intact Psychiatric Psychiatric exam: Present normal affect and normal mood Skin Skin exam: Present warm, dry and intact; Absent rash, cyanosis or diaphoresis Course Orders Category Date Time Status Bedside COVID-19 Antigen Test NOW Care 05/21/24 19:15 Active Bedside Influenza A&B Antigen Test NOW Care 05/21/24 19:15 Completed EKG (ED ONLY) *Do not use* NOW Care 05/21/24 19:16 Completed Insert IV NOW Care 05/21/24 20:16 Active EKG (ED Only) Stat Exams 05/21/24 19:16 Draft Alcohol, Blood Medical Stat Lab 05/21/24 20:29 Ordered B-Type Natriuretic Peptide Stat Lab 05/21/24 20:29 Ordered Blood Culture (Lab) Stat Lab 05/21/24 20:51 Ordered CBC Stat Lab 05/21/24 20:29 Completed Comprehensive Metabolic Panel Stat Lab 05/21/24 20:29 Ordered Drug Screen,Urine Stat Lab 05/21/24 20:15 Ordered Lactate (Lactic Acid) Stat Lab 05/21/24 20:29 Results Lipase Stat Lab 05/21/24 20:29 Ordered Magnesium Stat Lab 05/21/24 20:29 Ordered Procalcitonin Stat Lab 05/21/24 20:29 Ordered Troponin I Stat Lab 05/21/24 20:29 Ordered Urinalysis, C/S if Indicated Stat Lab 05/21/24 20:15 Ordered Sodium Chloride 0.9% 1000 ml [Ns] 1,000 ml Med 05/21/24 20:51 Active IV 999 mls/hr Vital Signs Vital signs: Vital Signs Temperature 98.7 F 05/21/24 20:00 Pulse Rate 111 H 05/21/24 20:00 Respiratory Rate 30 H 05/21/24 20:00 Blood Pressure 158/130 H 05/21/24 20:00 Pulse Oximetry (%) 91 L 05/21/24 20:00 Oxygen Delivery Method Room Air 05/21/24 20:00 Abdominal Pain MDM Medications / Prescriptions Medication administrations:: Medication Administration History Sodium Chloride (Ns) 1,000 mls @ 999 mls/hr IV .Q1H1M ONE Stop: 05/21/24 21:51 Discharge Plan Prescriptions/Referrals Prescriptions/Med Rec: No Action Eliquis 5 mg tablet 5 mg PO BID 14 Days Qty: 28 0RF aspirin 81 mg tablet,chewable 81 mg PO QDAY 14 Days Qty: 14 0RF atorvastatin 40 mg tablet 40 mg PO QPM 14 Days Qty: 14 0RF bumetanide 2 mg tablet 2 mg PO QDAY 14 Days Qty: 14 0RF metoprolol succinate 25 mg capsule,sprinkle,ER 24hr 25 mg PO BID 14 Days Qty: 28 0RF albuterol sulfate 90 mcg/actuation HFA aerosol inhaler 1 inh inhalation QID PRN (Reason: shortness of breath or wheezing) Qty: 8.5 0RF doxycycline monohydrate 100 mg capsule 100 mg PO BID Qty: 14 0RF promethazine 6.25 mg/5 mL syrup 6.25 mg PO TID PRN (Reason: cough) Qty: 120 0RF Referrals: No Primary/Family,Physician [Primary Care Provider] - In 1 week Patient/Caregiver Discharge Instructions Print Language: Portuguese
[2024-05-21 21:30] LABS: Collection Type, Urine Clean Catch; Squamous Epithelial Cell,Urine 0 /hpf (0-5)
--- NOTE | 2024-05-21 21:45 | PC.NURSE ---
Pt refusing IV and wanting to leave, Pt refusing X-ray, and stated, I fucken going to [facility]. Pt was educated on the consequences of him leaving against medical treatment up to the point that can occur. Pt got of the bed and started to put on his clothing back on. Pt still refusing all treatment. Dr. Agrawal and Behzad RN made aware. Pt given copy of patient leaving against medical advice form in which he signed.
[2024-05-21 21:48] LABS: Amphetamine/Methamp Scrn,U Positive (Negative); Barbiturate Screen,Urine Negative (Negative); Benzodiazepines Screen,Urine Positive (Negative); Benzoylecgonine Screen, Ur Negative (Negative); Fentanyl Screen,Urine Negative (Negative); Opiate Screen,Urine Negative (Negative); THC Screen,Urine Negative (Negative)
[2024-05-21 21:53] LABS: Bilirubin,Urine Negative (Negative); Blood,Urine Negative (Negative); Clarity,Urine Clear (Clear/Hazy); Color,Urine Yellow (Lt Yel-Yel); Culture Indicated,Urine Not Indicated; Glucose, Urine Negative (Negative); Hyaline Casts,Urine < 1 /hpf (0-1); Ketones,Urine Negative (Negative); Leukocyte Esterase,Urine Negative (Negative); Nitrite,Urine Negative (Negative); PH,Urine 5.5 (5.0-7.0); Protein,Urine 1+ (Neg - Trace); RBC,Urine 3 /hpf (0-3); Specific Gravity,Urine 1.026 (1.001-1.035); WBC,Urine 5 /hpf (0-5)
[2024-05-21 23:43] LABS: Reflex Lactate? Y
== END 2024-05-21 22:05 | disposition left against medical advice (07) ==
LOC: SERX 20:22
PROVIDERS: Physician Assistant; Emergency Provider Emergency Medicine
DX: R10.9 Unspecified abdominal pain (principal); Z53.29 Procedure and treatment not carried out because of patient's decision for other reasons; I11.0 Hypertensive heart disease with heart failure; I50.9 Heart failure, unspecified; I42.0 Dilated cardiomyopathy; E78.5 Hyperlipidemia, unspecified; R05.9 Cough, unspecified
CPT/HCPCS: 36415; 80053; 80307; 80320; 81001; 83605; 83690; 83735; 83880; 84145; 84484; 85025; 87040; 87400; 87811; 93005; 99283; G0480

== ENCOUNTER 2024-05-23 20:59 | Inpatient (IN) | payer MEDICAID, SELFPAY ==
[2024-05-23 21:09] VITALS: PULSE 102; O2SAT 97
[2024-05-23 21:11] VITALS: BMI 28.0
[2024-05-23 21:20] VITALS: BP 142/97; PULSE 107; RESP 20; TEMP 36.8; O2SAT 96
--- NOTE | 2024-05-23 21:21 | EKG_ITS ---
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
--- NOTE | 2024-05-23 21:21 | XR_ITS ---
Examination: PA lateral chest 2 views Technique: Upright PA lateral chest 2 views Exam date and time: May 23, 2024 2132 hrs. Comparison May 16, 2024 Indications: Onset chest pain beginning several days ago. Findings: Mild to moderate CHF Mild enlargement cardiac contour with prominent vascular congestion Perihilar edema and fluid in the fissures on the lateral view Possible superimposed pneumonia at the lung bases Mild to moderate left pleural effusion Impression: Mild to moderate CHF Possible superimposed pneumonia at the lung bases
--- NOTE | 2024-05-23 21:23 | PD.EDRME ---
Rapid Medical Screening Exam RME Arrival date/time: 05/23/24 20:59 64-year-old male PACO presents emergency department complaining of abdominal pain and cough. Chief Complaint: Abdominal Pain Time Seen by Provider: 05/23/24 21:15 Vital signs reviewed by provider: Yes
[2024-05-23 21:46] LABS: Basophils % (Auto) 0 % (0-2.5); Eosinophils % (Auto) 0 % (0-10); Hemoglobin 13.5 g/dL (13.5-16.0); Immature Granulocytes % (Auto) 1 % (0-0); Immature Granulocytes Auto 0.07 Thou/mm3 (0.00-0.00); Lymphocytes # (Auto) 0.8 Thou/mm3 (1.0-4.8); Lymphocytes % (Auto) 6 % (10-50); Mean Corpuscular HGB Conc 32.9 g/dl (31.0-37.0); Mean Corpuscular Hemoglobin 28.5 pg (25.0-35.0); Mean Corpuscular Volume 87 fL (80-100); Monocytes # (Auto) 1.3 Thou/mm3 (0.0-0.8); Monocytes % (Auto) 10 % (0-12); Neutrophils # (Auto) 10.4 Thou/mm3 (1.8-7.7); Neutrophils % (Auto) 83 % (37-80); Nucleated Red Blood Cell # 0.03 Thou/mm3 (0.00-0.00); Nucleated Red Blood Cell % 0 /100 WBC (0); Platelet Count 97 Thou/mm3 (140-440); RDW Standard Deviation 56.2 fL (35.1-43.9); Red Blood Count 4.74 Miln/mm3 (4.50-5.90); White Blood Count 12.5 Thou/mm3 (3.8-10.6)
[2024-05-23 22:03] LABS: INR 1.5 (0.9-1.3); Partial Thromboplastin Time 30.6 Seconds (22.0-36.0); Prothrombin Time 15.5 Seconds (9.0-12.2)
[2024-05-23 22:31] LABS: B-Type Natriuretic Peptide 2286 pg/mL (0-100)
[2024-05-23 22:32] LABS: Alanine Aminotransferase 87 U/L (10-49); Albumin, Serum 3.8 gm/dL (3.4-4.8); Albumin/Globulin Ratio 1.1 (1.2-2.2); Alcohol, Blood Medical < 3.0 mg/dL (0-10.0); Alkaline Phosphatase 130 U/L (46-116); Anion Gap 10 (7-16); Aspartate Amino Transferase 83 U/L (0-34); BUN/Creatinine Ratio 19 Ratio (12-20); Bilirubin,Total 2.9 mg/dL (0.3-1.2); Blood Urea Nitrogen 25 mg/dL (9-23); Calcium 8.8 mg/dL (8.3-10.6); Carbon Dioxide 20.6 mMol/L (20.0-31.0); Chloride 103 mMol/L (98-107); Creatinine (Component) 1.3 mg/dL (0.6-1.3); Estimated Creatinine Clearance 63.3 mL/min (>60); Globulin 3.6 gm/dL (2.3-3.5); Glucose 86 mg/dL (74-106); Lipase 34 U/L (12-53); Magnesium 1.7 mg/dL (1.6-2.6); Osmolality,Calculated 271 (275-295); Potassium 4.5 mMol/L (3.4-5.1); Sodium 134 mMol/L (136-145); Total Protein 7.4 gm/dL (5.7-8.2); eGFR > 60 See Note
[2024-05-23 22:39] LABS: Troponin I 0.273 ng/mL (0.0-0.045)
[2024-05-24] VITALS (87 sets, daily range): BP systolic 8–173; BP diastolic 7–120; PULSE 45–144; RESP 12–90; TEMP 36.3–37.5; O2SAT 44–100
[2024-05-24 01:15] LABS: Lactate (Lactic Acid) 2.8 mMol/L (0.4-2.0)
[2024-05-24 01:44] LABS: Procalcitonin 4.28 ng/ml (0.0-0.49)
--- NOTE | 2024-05-24 02:00 | PC.NURSE ---
pt to er with c/o cough and abd pain worsening when he coughs. Pt seen yesterday for same symptoms and left AMA. Pt states symptoms continued that is why he is back today. Pt presents to the er cough and appears tachypneic and sob. Pt placed on cardiac monitoring. 22GRFA started. pt a/ox3 gcs 15.
--- NOTE | 2024-05-24 02:44 | PD.EDABDPN ---
ED Abdominal Pain RME/HPI General Chief Complaint: Abdominal Pain Stated complaint: ABD PAIN Time seen by provider: 05/23/24 21:15 Arrival date/time: 05/23/24 20:59 RME / HPI RME / HPI narrative: 05/23/24 20:59 64-year-old male PACO presents emergency department complaining of abdominal pain and cough. --- Dr. Carlin's Main ED Evaluation: 64yo male PACO presents to the ED for complaints of abdominal pain and cough. Patient was seen here in the ED yesterday for the same complaint, but left AMA. Patient states his symptoms have been persistent, so he came back in for further evaluation. He denies any fever, chills, N/V/D or any other associated symptoms. No known allergies. Related Data Previous Rx's ?Medication ?Instructions ?Recorded doxycycline monohydrate 100 mg 100 mg PO BID #14 caps 05/16/24 capsule promethazine 6.25 mg/5 mL oral 6.25 mg (5 mL) PO TID PRN cough 05/16/24 syrup #120 mL albuterol sulfate 90 mcg/actuation 1 inh inhalation QID PRN shortness 05/19/24 aerosol inhaler of breath or wheezing #8.5 grams apixaban 5 mg tablet (Eliquis) 5 mg PO BID 2 weeks #28 tabs 05/19/24 aspirin 81 mg chewable tablet 81 mg PO QDAY 2 weeks #14 tabs 05/19/24 atorvastatin 40 mg tablet 40 mg PO QPM 2 weeks #14 tabs 05/19/24 bumetanide 2 mg tablet 2 mg PO QDAY 2 weeks #14 tabs 05/19/24 metoprolol succinate 25 mg capsule 25 mg PO BID 2 weeks #28 ea 05/19/24 sprinkle, ext. release 24 hr Allergies Allergy/AdvReac Type Severity Reaction Status Date / Time No Known Allergies Allergy Verified 05/21/24 19:15 Review of Systems Review of Systems Systems Reviewed: All systems reviewed, normal except as documented Past Medical History Past Medical History NEUROLOGIC: Positive Cerebrovascular Accident; Negative Neurological Disorders or Seizures CARDIAC: Positive Congestive Heart Failure and Hypertension; Negative Cardiac Disorders (lv thrombus), Atrial Fibrillation, Angina, Atherosclerotic Heart Disease, Aneurysm or Cellulitis RESPIRATORY: Positive Asthma; Negative Chronic Obstructive Pulmonary Disease (COPD) GASTROINTESTINAL: Positive Gastrointestinal Disorders, Hepatitis and Ulcer GENITOURINARY: Positive Inguinal Hernia; Negative Renal Disease MUSCULOSKELETAL: Positive Musculoskeletal Disorders, Arthritis, Gout and Osteomyelitis ENDOCRINE: Negative Diabetes Mellitus Type 1 or Diabetes Mellitus Type 2 HEMATOLOGIC: Positive Anemia; Negative Sickle Cell Disease PSYCHO/SOCIAL: Positive Recreational Drug Use and Anxiety OTHER HISTORY: Negative Blood Transfusions, Blood Transfusion Reaction, Anesthesia Reactions, Clostridium Difficile or Cancer Family History FAMILY HISTORY: Positive Family Psychiatric Problems, Family Cardiac Disorders and Family Cancer; Negative Family Respiratory Disorders or Family Gastrointestinal Problems Surgical History SURGICAL: Positive Abdominal Surgery; Negative Cardiac Surgery, Pacemaker, Ear Surgery or Joint Replacement Social History SMOKING STATUS: Former smoker SUBSTANCE USE: marijuana and methamphetamine ED Exam Narrative Physical exam: GENERAL APPEARANCE: AxOx4, generally disheveled. No acute distress. Not coughing and noted diaphoresis HEENT: NC, clear conjunctiva, oropharynx clear. NECK: Supple. No stiffness or restricted ROM. HEART: Normal rate and regular rhythm, normal S1/S1, no m/r/g LUNGS: CTAB, No crackles or wheezes are heard. ABDOMEN: Soft, nontender, nondistended with good bowel sounds heard. BACK: No CVAT, no obvious deformity. EXTREMITIES: Without cyanosis, clubbing or edema. MUSCULOSKELETAL: no chest tenderness NEUROLOGICAL: Patient ambulatory in the room. CN not formally tested but appear grossly intact. No facial droop and able to talk in full sentences. No dysarthria. Skin: Warm and dry without any rash. Course Course Course Narrative: CXR is ordered for determining the etiology of cough. 0458: Sepsis alert initiated. Orders made at this time are congruent with ED Adult Sepsis Order List. Re-evaluation is to be completed. Patient initially wanted to leave A, but decided to stay and is now agreeable for admission. Quality Measures none Orders Category Date Time Status Admit to Inpatient Status Routine Admission 05/24/24 05:09 Active Patient Condition Routine Admission 05/24/24 05:09 Ordered Activity as Tolerated Routine Care 05/24/24 05:10 Ordered Bedside COVID-19 Antigen Test NOW Care 05/23/24 21:22 Active Bedside Influenza A&B Antigen Test NOW Care 05/23/24 21:22 Completed EKG (ED ONLY) *Do not use* NOW Care 05/23/24 21:21 Completed Notify provider NEEDED Care 05/24/24 05:09 Active Diet Cardiac Diet 05/24/24 Breakfast Active EKG (ED Only) Stat Exams 05/23/24 21:21 Draft XR chest 2V Stat Exams 05/23/24 21:21 Completed Alcohol, Blood Medical Stat Lab 05/23/24 21:29 Completed B-Type Natriuretic Peptide Stat Lab 05/23/24 21:29 Completed Basic Metabolic Panel AM DRAW Lab 05/25/24 05:00 Ordered Basic Metabolic Panel AM DRAW Lab 05/26/24 05:00 Ordered Basic Metabolic Panel AM DRAW Lab 05/27/24 05:00 Ordered Blood Culture (Lab) Stat Lab 05/24/24 05:24 Ordered CBC AM DRAW Lab 05/25/24 05:00 Ordered CBC AM DRAW Lab 05/26/24 05:00 Ordered CBC AM DRAW Lab 05/27/24 05:00 Ordered CBC Stat Lab 05/23/24 21:29 Completed Comprehensive Metabolic Panel Stat Lab 05/23/24 21:29 Completed Drug Screen,Urine Stat Lab 05/23/24 21:21 Ordered Lactate (Lactic Acid) Stat Lab 05/24/24 01:08 Completed Lactic Acid, 3 HR Stat Lab 05/24/24 04:55 Completed Lipase Stat Lab 05/23/24 21:29 Completed Magnesium Stat Lab 05/23/24 21:29 Completed Partial Thromboplastin Time Stat Lab 05/23/24 21:29 Completed Procalcitonin Stat Lab 05/24/24 01:08 Completed Prothrombin Time with INR Stat Lab 05/23/24 21:29 Completed Troponin I AM DRAW Lab 05/25/24 05:00 Ordered Troponin I Stat Lab 05/23/24 21:29 Completed Urinalysis Stat Lab 05/23/24 21:21 Ordered Acetaminophen Tab [Tylenol Tab] Med 05/24/24 05:09 Active 650 mg PO Q6H PRN Albuterol/Ipratr Rt Lacie [Duoneb Rt Lacie] Med 05/24/24 03:39 Discontinued 3 ml INH X1 ONE Amoxicillin Cap [Amoxil Cap] Med 05/24/24 03:40 Discontinued 1,000 mg PO X1 ONE Apixaban [Eliquis] Med 05/24/24 09:00 Pending 5 mg PO BID Aspirin [Ecotrin] Med 05/24/24 09:00 Pending 81 mg PO QDAY Atorvastatin Calcium [Lipitor] Med 05/24/24 21:00 Active 40 mg PO HS Azithromycin Inj [Zithromax Inj] 500 mg Med 05/24/24 05:14 Pending Sodium Chloride 0.9% 250 ml [Ns] 250 ml IV QDAY Azithromycin Inj [Zithromax Inj] 500 mg Med 05/24/24 05:30 Active Sodium Chloride 0.9% 250 ml [Ns] 250 ml IV X1 Dexamethasone Inj [Decadron Inj] Med 05/24/24 03:39 Discontinued 10 mg PO X1 ONE Furosemide Inj [Lasix Inj] Med 05/24/24 09:00 Active 40 mg IVP QDAY Metoprolol Succinate Xl [Toprol Xl] Med 05/24/24 09:00 Active 25 mg PO QDAY cefTRIAXone/D5w 1gm IV premix [Rocephin/D5w 1gm IV Med 05/24/24 05:14 Pending premix] 50 ml IV QDAY cefTRIAXone/D5w 1gm IV premix [Rocephin/D5w 1gm IV Med 05/24/24 05:30 Active premix] 50 ml IV X1 Code Status Routine Oth 05/24/24 05:09 Ordered Oxygen Delivery PRN RT 05/24/24 04:01 Active Vital Signs Vital signs: Vital Signs Temperature 98.3 F 05/23/24 21:20 Pulse Rate 107 H 05/23/24 21:20 Respiratory Rate 20 05/23/24 21:20 Blood Pressure 142/97 H 05/23/24 21:20 Pulse Oximetry (%) 96 05/23/24 21:20 Oxygen Delivery Method Room Air 05/23/24 21:20 Pulse ox is 96% on room air, which is normal according to my interpretation. Abdominal Pain MDM Patient data External records reviewed:: [facility] previous records (Per chart review, patient was seen here yesterday for the same complaint, but left AMA.) Clinical information provided by:: patient Social determinants that could affect healthcare access:: none Patient has the following chronic illnesses:: CHF and low EF, methamphetamine use, dilated cardiomyopathy, hep C How is presenting disease/condition affected by chronic disease/condition?: exacerbated by Evaluation data The following diagnostics were reviewed and interpreted by me:: lab results, radiology exam(s) and EKG tracing(s) Lab and/or radiology exams considered but not ordered:: none Interpretation Summary: Bedside COVID and Influenza are negative, Lactate is improved to 2.8 (was 4.1 yesterday), Troponin and BNP is always elevated, according to my interpretation. EKG done at 0232, sinus tachycardia, rate of 111, old ID, QTc: 555, prolonged QTc compared to EKG done on 05/23/24 (which was 488), impressionL prolonged QTc, according to my interpretation. ------- [facility] Report Signed Patient: NELDA LEON Record#: [id number] Birthdate: 1960 Age/Sex: 64 / M Location: [facility] Attending Dr: Ordering Physician: Felicia Pathak (EVIDENCE TECHNICIAN),Roberto JOHNSON Date of Service: 05/23/24 Procedure(s): XR chest 2V Accession Number(s): [id number] cc: Aneesh Acuna MD; Felicia Pathak (EVIDENCE TECHNICIAN),Roberto JOHNSON~ Examination: PA lateral chest 2 views Technique: Upright PA lateral chest 2 views Exam date and time: May 23, 2024 2132 hrs. Comparison May 16, 2024 Indications: Onset chest pain beginning several days ago. Findings: Mild to moderate CHF Mild enlargement cardiac contour with prominent vascular congestion Perihilar edema and fluid in the fissures on the lateral view Possible superimposed pneumonia at the lung bases Mild to moderate left pleural effusion Impression: Mild to moderate CHF Possible superimposed pneumonia at the lung bases Dictated By: Aneesh Acuna MD Signed By: <Electronically signed by Aneesh Acuna MD in OV> 05/23/24 2208 Medications / Prescriptions Medications or Prescriptions considered but not ordered:: none Medication administrations:: Medication Administration History Acetaminophen (Acetaminophen 325 Mg Tablet) 650 mg PO Q6H PRN PRN Reason: Fever >101.5 Stop: 06/23/24 05:08 Apixaban (Apixaban 2.5 Mg Tablet) 5 mg PO BID JANETTE Stop: 06/14/24 08:59 Aspirin (Aspirin Ec 81 Mg Tabec) 81 mg PO QDAY JANETTE Stop: 06/23/24 08:59 Atorvastatin Calcium (Atorvastatin Calcium 20 Mg Tablet) 40 mg PO HS JANETTE Stop: 06/23/24 20:59 Furosemide (Furosemide Inj 10 Mg/Ml 4ml Vial) 40 mg IVP QDAY JANETTE Stop: 06/23/24 08:59 Ceftriaxone Sodium/Dextrose (Rocephin/D5w 1gm Iv Premix) 50 mls @ 100 mls/hr IV QDAY [facility] Stop: 05/31/24 05:13 Azithromycin 500 mg/ Sodium (Chloride) 250 mls @ 250 mls/hr IV QDAY JANETTE Stop: 05/31/24 05:13 Azithromycin 500 mg/ Sodium (Chloride) 250 mls @ 250 mls/hr IV X1 ONE Stop: 05/24/24 06:29 Ceftriaxone Sodium/Dextrose (Rocephin/D5w 1gm Iv Premix) 50 mls @ 100 mls/hr IV X1 ONE Stop: 05/24/24 05:59 Metoprolol Succinate (Metoprolol Succinate Xl 25 Mg Tabcr) 25 mg PO QDAY [facility] Stop: 06/23/24 08:59 Discontinued Medications Albuterol/Ipratropium (Albuterol/Ipratropium (Duoneb) Rt Lacie 3 Ml Nebu) 3 ml INH X1 ONE Stop: 05/24/24 03:40 Last Admin: 05/24/24 03:51 Dose: 3 ml Documented By: NANCIE Amoxicillin (Amoxicillin 250 Mg Capsule) 1,000 mg PO X1 ONE Stop: 05/24/24 03:41 Last Admin: 05/24/24 04:10 Dose: 1,000 mg Documented By: EAGLE Dexamethasone Sodium Phosphate (Dexamethasone Sod Phos Inj 10 Mg/Ml Vial) 10 mg PO X1 ONE Stop: 05/24/24 03:40 Last Admin: 05/24/24 04:11 Dose: 10 mg Documented By: EAGLE see above, if any Consultations Consultation(s) initiated? (list below): Yes Consultation #1 (Physician, Specialty, Details): Discussed case with [Dr. Bailey] from Hospitalist service regarding admission. Discussed patients ED course, exam findings, labs, and radiology results. The Hospitalist [agrees] to accept the patient for admission. Diagnosis Differential diagnosis abdominal pain: abdominal pain (See below) and other Most likely diagnosis given after review of the tests above:: Pneumonia, pleural effusion, bacteremia, sepsis, noncompliance, Admission Indicated Admission indicated?: indicated Admission Request Was there a request for admission?: Yes Admission Attestation Admission request attestation: Discussed case with [] from Hospitalist service regarding admission. Discussed patients ED course, exam findings, labs, and radiology results. The Hospitalist [agrees,declines] to accept the patient for admission. Disposition Plan Disposition Plan: Admit Critical Care Time Critical Care Time Critical Care Time: Yes Total Critical Care Time (min.): 35 Attestation: The high probability of sudden, clinically significant deterioration in the patient?s condition required the highest level of my preparedness to intervene urgently. The services I provided to this patient were to treat and/or prevent clinically significant deterioration. Services included the following: chart data review, reviewing nursing notes and/or old charts, documentation time, care consultant collaboration regarding findings and treatment options, medication orders and management, direct patient care, vital sign assessments and ordering, interpreting and reviewing diagnostic studies and lab tests. Aggregate critical care time includes only time during which I was engaged in work directly related to the patient?s care, as described above, whether at bedside or elsewhere in the Emergency Department. It did not include time spent performing other reported procedures or the services of residents, students, nurses or physician assistants. Discharge Plan Plan Patient condition on transfer: Stable Prescriptions/Referrals Prescriptions/Med Rec: No Action Eliquis 5 mg tablet 5 mg PO BID 14 Days Qty: 28 0RF aspirin 81 mg tablet,chewable 81 mg PO QDAY 14 Days Qty: 14 0RF atorvastatin 40 mg tablet 40 mg PO QPM 14 Days Qty: 14 0RF bumetanide 2 mg tablet 2 mg PO QDAY 14 Days Qty: 14 0RF metoprolol succinate 25 mg capsule,sprinkle,ER 24hr 25 mg PO BID 14 Days Qty: 28 0RF albuterol sulfate 90 mcg/actuation HFA aerosol inhaler 1 inh inhalation QID PRN (Reason: shortness of breath or wheezing) Qty: 8.5 0RF doxycycline monohydrate 100 mg capsule 100 mg PO BID Qty: 14 0RF promethazine 6.25 mg/5 mL syrup 6.25 mg PO TID PRN (Reason: cough) Qty: 120 0RF Problem List Clinical Impression: Heart failure with reduced ejection fraction, Medically noncompliant, Congestive heart failure, Hepatitis C antibody positive in blood, Chronic dyspnea, Pneumonia Patient/Caregiver Discharge Instructions Print Language: [place]
--- NOTE | 2024-05-24 02:50 | PD.EDADULT ---
ED General RME/HPI General Chief complaint: Abdominal Pain Stated complaint: ABD PAIN Time Seen by Provider: 05/23/24 21:15 Arrival date/time: 05/23/24 20:59 RME / HPI RME / HPI narrative: 05/23/24 20:59 64-year-old male PACO presents emergency department complaining of abdominal pain and cough. --- Dr. 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 The patient states that he has chronic cough and he is short of breath. Patient states is not much change from earlier yesterday but he said he did not want to be admitted yesterday so [facility]. The patient states today he may stay if we offer him a bed in the hospital. Related Data Previous Rx's ?Medication ?Instructions ?Recorded doxycycline monohydrate 100 mg 100 mg PO BID #14 caps 05/16/24 capsule promethazine 6.25 mg/5 mL oral 6.25 mg (5 mL) PO TID PRN cough 05/16/24 syrup #120 mL albuterol sulfate 90 mcg/actuation 1 inh inhalation QID PRN shortness 05/19/24 aerosol inhaler of breath or wheezing #8.5 grams apixaban 5 mg tablet (Eliquis) 5 mg PO BID 2 weeks #28 tabs 05/19/24 aspirin 81 mg chewable tablet 81 mg PO QDAY 2 weeks #14 tabs 05/19/24 atorvastatin 40 mg tablet 40 mg PO QPM 2 weeks #14 tabs 05/19/24 bumetanide 2 mg tablet 2 mg PO QDAY 2 weeks #14 tabs 05/19/24 metoprolol succinate 25 mg capsule 25 mg PO BID 2 weeks #28 ea 05/19/24 sprinkle, ext. release 24 hr Allergies Allergy/AdvReac Type Severity Reaction Status Date / Time No Known Allergies Allergy Verified 05/21/24 19:15 ED Exam Narrative Physical exam: GENERAL APPEARANCE: AxOx4, generally disheveled. No acute distress. Not coughing and noted diaphoresis HEENT: NC, clear conjunctiva, oropharynx clear. NECK: Supple. No stiffness or restricted ROM. HEART: Normal rate and regular rhythm, normal S1/S1, no m/r/g LUNGS: CTAB, No crackles or wheezes are heard. ABDOMEN: Soft, nontender, nondistended with good bowel sounds heard. BACK: No CVAT, no obvious deformity. EXTREMITIES: Without cyanosis, clubbing or edema. MUSCULOSKELETAL: no chest tenderness NEUROLOGICAL: Patient ambulatory in the room. CN not formally tested but appear grossly intact. No facial droop and able to talk in full sentences. No dysarthria. Skin: Warm and dry without any rash. Course Orders Category Date Time Status Bedside COVID-19 Antigen Test NOW Care 05/23/24 21:22 Active Bedside Influenza A&B Antigen Test NOW Care 05/23/24 21:22 Completed EKG (ED ONLY) *Do not use* NOW Care 05/23/24 21:21 Completed EKG (ED Only) Stat Exams 05/23/24 21:21 Draft XR chest 2V Stat Exams 05/23/24 21:21 Completed Alcohol, Blood Medical Stat Lab 05/23/24 21:29 Completed B-Type Natriuretic Peptide Stat Lab 05/23/24 21:29 Completed CBC Stat Lab 05/23/24 21:29 Completed Comprehensive Metabolic Panel Stat Lab 05/23/24 21:29 Completed Drug Screen,Urine Stat Lab 05/23/24 21:21 Ordered Lactate (Lactic Acid) Stat Lab 05/24/24 01:08 Results Lipase Stat Lab 05/23/24 21:29 Completed Magnesium Stat Lab 05/23/24 21:29 Completed Partial Thromboplastin Time Stat Lab 05/23/24 21:29 Completed Procalcitonin Stat Lab 05/24/24 01:08 Completed Prothrombin Time with INR Stat Lab 05/23/24 21:29 Completed Troponin I Stat Lab 05/23/24 21:29 Completed Urinalysis Stat Lab 05/23/24 21:21 Ordered Vital Signs Vital signs: Vital Signs Temperature 98.3 F 05/23/24 21:20 Pulse Rate 107 H 05/23/24 21:20 Respiratory Rate 20 05/23/24 21:20 Blood Pressure 142/97 H 05/23/24 21:20 Pulse Oximetry (%) 96 05/23/24 21:20 Oxygen Delivery Method Room Air 05/23/24 21:20 Medical Decision Making MDM Narrative MDM Narrative: Differential diagnosis includes acute on chronic CHF, acute on chronic chronic renal sufficiency, community-acquired pneumonia, noncompliance, acute on chronic osteomyelitis The patient at this time does not appear in any acute distress. His labs actually are much improved and not and reassuring compared to what they usually are, and surprisingly he is not having any Active wheezing, stridor, and otherwise is awake alert and able to answer all questions. Lab Data 05/23/24 21:29 05/23/24 21:29 Labs: Lab Results 05/23/24 05/24/24 Range/Units 21:29 01:08 WBC 12.5 H (3.8-10.6) Thou/mm3 RBC 4.74 (4.50-5.90) Miln/mm3 Hgb 13.5 (13.5-16.0) g/dL Hct 41.0 (41.0-53.0) % MCV 87 (80-100) fL MCH 28.5 (25.0-35.0) pg MCHC 32.9 (31.0-37.0) g/dl RDW Std Deviation 56.2 H (35.1-43.9) fL Plt Count 97 L D (140-440) Thou/mm3 Neut % (Auto) 83 H (37-80) % Lymph % (Auto) 6 L (10-50) % [place]k % (Auto) 10 (0-12) % Eos % (Auto) 0 (0-10) % Baso % (Auto) 0 (0-2.5) % Neut # (Auto) 10.4 H (1.8-7.7) Thou/mm3 Lymph # (Auto) 0.8 L (1.0-4.8) Thou/mm3 [place]k # (Auto) 1.3 H (0.0-0.8) Thou/mm3 Eos # (Auto) 0.0 (0.0-0.5) Thou/mm3 Baso # (Auto) 0.0 (0.0-0.2) Thou/mm3 Immature Gran # (Auto) 0.07 H (0.00-0.00) Thou/mm3 Absolute Nucleated RBC 0.03 H (0.00-0.00) Thou/mm3 Immature Gran % 1 H (0-0) % Nucleated RBC % 0 (0) /100 WBC PT 15.5 H (9.0-12.2) Seconds INR 1.5 H (0.9-1.3) APTT 30.6 (22.0-36.0) Seconds Sodium 134 L (136-145) mMol/L Potassium 4.5 (3.4-5.1) mMol/L Chloride 103 (98-107) mMol/L Carbon Dioxide 20.6 (20.0-31.0) mMol/L Anion Gap 10 (7-16) BUN 25 H (9-23) mg/dL Creatinine 1.3 (0.6-1.3) mg/dL Estim Creat Clear Calc 63.3 (>60) mL/min eGFR > 60 (60 - ) See Note BUN/Creatinine Ratio 19 (12-20) Ratio Glucose 86 (74-106) mg/dL Calculated Osmolality 271 L (275-295) Lactic Acid 2.8 H (0.4-2.0) mMol/L Calcium 8.8 (8.3-10.6) mg/dL Corrected Calcium 9.0 (8.5-10.1) mg/dL Magnesium 1.7 (1.6-2.6) mg/dL Total Bilirubin 2.9 H (0.3-1.2) mg/dL AST 83 H (0-34) U/L ALT 87 H (10-49) U/L Alkaline Phosphatase 130 H (46-116) U/L Troponin I 0.273 H* (0.0-0.045) ng/mL B-Natriuretic Peptide 2286 H* (0-100) pg/mL Total Protein 7.4 (5.7-8.2) gm/dL Albumin 3.8 (3.4-4.8) gm/dL Globulin 3.6 H (2.3-3.5) gm/dL Albumin/Globulin Ratio 1.1 L (1.2-2.2) Lipase 34 (12-53) U/L Procalcitonin 4.28 H (0.0-0.49) ng/ml Ethyl Alcohol < 3.0 (0-10.0) mg/dL Discharge Plan Prescriptions/Referrals Prescriptions/Med Rec: No Action Eliquis 5 mg tablet 5 mg PO BID 14 Days Qty: 28 0RF aspirin 81 mg tablet,chewable 81 mg PO QDAY 14 Days Qty: 14 0RF atorvastatin 40 mg tablet 40 mg PO QPM 14 Days Qty: 14 0RF bumetanide 2 mg tablet 2 mg PO QDAY 14 Days Qty: 14 0RF metoprolol succinate 25 mg capsule,sprinkle,ER 24hr 25 mg PO BID 14 Days Qty: 28 0RF albuterol sulfate 90 mcg/actuation HFA aerosol inhaler 1 inh inhalation QID PRN (Reason: shortness of breath or wheezing) Qty: 8.5 0RF doxycycline monohydrate 100 mg capsule 100 mg PO BID Qty: 14 0RF promethazine 6.25 mg/5 mL syrup 6.25 mg PO TID PRN (Reason: cough) Qty: 120 0RF Problem List Clinical Impression: Heart failure with reduced ejection fraction, Medically noncompliant, Congestive heart failure, Hepatitis C antibody positive in blood, Chronic dyspnea Patient/Caregiver Discharge Instructions Print Language: [place]
[2024-05-24] MEDS: ALBUTEROL/IPRATROPIUM (Duoneb) RT SOL 3 ML NEBU INH (03:51)
[2024-05-24] MEDS: AMOXICILLIN 250 MG CAPSULE 1000 MG PO (04:10)
[2024-05-24] MEDS: DEXAMETHASONE SOD PHOS INJ 10 MG/ML VIAL PO (04:11)
[2024-05-24 04:13] LABS: Reflex Lactate? Y
[2024-05-24] MEDS: AZITHROMYCIN INJ 500 MG in SODIUM CHLORIDE 0.9% 250 ML 250 ML 250 MG IV (05:35)
[2024-05-24] MEDS: cefTRIAXone/D5w 1gm IV premix 50 ML IV (05:44)
--- NOTE | 2024-05-24 05:48 | ESHP_ITS ---
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 He states that his abdominal pain is only present when he coughs or present for a long time. Patient presented to the ED yesterday for similar symptoms but left AMA. 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 ED course: In the ED, patient was noted to be afebrile, tachypneic and saturating 92% on room air after which she was placed on oxygen via nasal cannula, labs showed WBC 12.5 Hgb 13.5 PLT 97 NA 134 K4.5 BUN 25 CR 1.3 glucose 86 lactic acid 2.0 T. bili 2.9 elevated LFTs, troponin 0.27, BNP 2286, lactic acid 2.8 and Pro-Eusebio 4.6. U-Tox for alcohol was negative. Chest x-ray was done showed mild to moderate CHF with possible superimposed pneumonia. He was given amoxicillin 1 g in the ED and has been admitted for management of acute hypoxic respiratory failure, CHF exacerbation and possible pneumonia. Review of Systems Review of Systems Narrative Review of Systems: GENERAL: Denies fevers/chills or diaphoresis. HEENT: Denies headache or visual/hearing changes. Denies nasal discharge. NEURO: Denies unusual weakness or difficulty speaking. CARDIO: Denies chest pain or palpitations. PULM: Admits shortness of breath, coughing. GI: Admits abdominal pain, denies N/V/C/D/reflux/gas, bright red blood per rectum or melena. Reports having BMs. URO: Denies burning/itching/pain/urinary changes. MSK/EXT/SKIN: Denies joint/skeletal/muscle pain, issues/changes in upper or lower extremities, itchiness, or superficial pain. PSYCH: Cooperative, pleasant mood & affect. Exam Vital Signs Temp Pulse Resp BP Pulse Ox O2 Del Method O2 Flow Rate 99.2 F 96 24 H 125/99 H 94 L Nasal Cannula 2 05/24/24 03:19 05/24/24 05:25 05/24/24 05:25 05/24/24 05:25 05/24/24 05:25 05/24/24 05:25 05/24/24 05:25 Narrative Exam GENERAL: AAOX3. 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 HEENT: Moist mucosa. Eyes open, symmetrical, & clear. CARDIO: No chest pain on palpation. Heart RRR, no obvious murmurs. PULM:Coughing up sputum, tachypneic. Crackles at base bilaterally. GI: Abdomen soft, nondistended, no pain on palpation. BSx4. URO/MALTED MILK MIXER:: No further abnormalities noted. SKIN/MSK/EXT: Bilateral lower extremity edema 2+. Results: Labs 05/23/24 21:29 05/23/24 21:29 Labs: Short CBC 05/23/24 Range/Units 21:29 WBC 12.5 H (3.8-10.6) Thou/mm3 Hgb 13.5 (13.5-16.0) g/dL Hct 41.0 (41.0-53.0) % Plt Count 97 L D (140-440) Thou/mm3 BMP 05/23/24 21:29 Sodium 134 L Potassium 4.5 Chloride 103 Carbon Dioxide 20.6 BUN 25 H Creatinine 1.3 Glucose 86 Calcium 8.8 Cardiac Enzymes 05/23/24 Range/Units 21:29 Troponin I 0.273 H* (0.0-0.045) ng/mL Liver Function 05/23/24 Range/Units 21:29 Total Bilirubin 2.9 H (0.3-1.2) mg/dL AST 83 H (0-34) U/L ALT 87 H (10-49) U/L Alkaline Phosphatase 130 H (46-116) U/L Albumin 3.8 (3.4-4.8) gm/dL Quality Measures Quality Measures none Medications Home Medications and Allergies Allergies Allergy/AdvReac Type Severity Reaction Status Date / Time No Known Allergies Allergy Verified 05/21/24 19:15 Visit Medications Acetaminophen (Acetaminophen 325 Mg Tablet) 650 mg PO Q6H PRN PRN Reason: Fever >101.5 Stop: 06/23/24 05:08 Apixaban (Apixaban 2.5 Mg Tablet) 5 mg PO BID [facility] Stop: 06/14/24 08:59 Aspirin (Aspirin Ec 81 Mg Tabec) 81 mg PO QDAY [facility] Stop: 06/23/24 08:59 Atorvastatin Calcium (Atorvastatin Calcium 20 Mg Tablet) 40 mg PO HS [facility] Stop: 06/23/24 20:59 Furosemide (Furosemide Inj 10 Mg/Ml 4ml Vial) 40 mg IVP QDAY [facility] Stop: 06/23/24 08:59 Ceftriaxone Sodium/Dextrose (Rocephin/D5w 1gm Iv Premix) 50 mls @ 100 mls/hr IV QDAY [facility] Stop: 05/31/24 05:13 Azithromycin 500 mg/ Sodium (Chloride) 250 mls @ 250 mls/hr IV QDAY [facility] Stop: 05/31/24 05:13 Azithromycin 500 mg/ Sodium (Chloride) 250 mls @ 250 mls/hr IV X1 ONE Stop: 05/24/24 06:29 Ceftriaxone Sodium/Dextrose (Rocephin/D5w 1gm Iv Premix) 50 mls @ 100 mls/hr IV X1 ONE Stop: 05/24/24 05:59 Last Admin: 05/24/24 05:44 Dose: 100 mls/hr Metoprolol Succinate (Metoprolol Succinate Xl 25 Mg Tabcr) 25 mg PO QDAY [facility] Stop: 06/23/24 08:59 Discontinued Medications Albuterol/Ipratropium (Albuterol/Ipratropium (Duoneb) Rt Lacie 3 Ml Nebu) 3 ml INH X1 ONE Stop: 05/24/24 03:40 Last Admin: 05/24/24 03:51 Dose: 3 ml Amoxicillin (Amoxicillin 250 Mg Capsule) 1,000 mg PO X1 ONE Stop: 05/24/24 03:41 Last Admin: 05/24/24 04:10 Dose: 1,000 mg Dexamethasone Sodium Phosphate (Dexamethasone Sod Phos Inj 10 Mg/Ml Vial) 10 mg PO X1 ONE Stop: 05/24/24 03:40 Last Admin: 05/24/24 04:11 Dose: 10 mg Assessment & Plan Assessment Summary: The patient is a 64-year-old male with a past medical history of HFrEF with ejection fraction of 15 to 20%, chronic left ventricular thrombus, meth abuse with dilated cardiomyopathy, history of hep C, left foot osteomyelitis, hypertension, hyperlipidemia, medical noncompliance and homelessness who presented with abdominal pain, cough and difficulty breathing. #Acute hypoxic respiratory failure #Acute decompensated heart disease #Sepsis, likely secondary to pneumonia The patient presented with a 3-day history of productive cough with yellow sputum, difficulty breathing and abdominal pain which is said to be worse when the intensity of coughing increases. He presented to the ED yesterday with similar symptoms, left AMA before discharge instructions were given. On admission to the ED, the patient was afebrile, tachypneic and after which she was placed on oxygen via nasal cannula. Labs are significant for mild leukocytosis, hyponatremia, resolving lactic acidosis, elevated BNP and troponins. Chest x-ray showed mild to moderate CHF pattern with possible superimposed pneumonia. In the ED, the patient received 1 g of amoxicillin and dexamethasone 10 mg Plan: -Admit to telemetry -IV ceftriaxone 1 g daily + azithromycin -IV Lasix 40 mg daily -Blood cultures -Strict I&O's -Fluid restriction 1500cc -Consider starting other heart failure medications -Breathing treatments -Consider cardiology consult #NSTEMI type II, demand ischemia #History of hyperlipidemia. -On admission Troponin 0.273 -EKG showed sinus tachycardia -Denied any chest pain, arm numbness, dizziness. Plan: -Continue aspirin and atorvastatin -Income Tax Expert consulted, appreciate recommendations -Monitor tele #Transaminitis #Possible cirrhosis Patient reports daily use of alcohol 6 pack beer for the last 3 years, says he has reduced his alcohol intake significantly. AST 83, T. bili 2.9, ALT 87, alk phos 130 Utox negative for ethyl alcohol Plan -Monitor CMP daily -Alcohol cessation advised Health maintenance: Dispo: Tele Diet: Cardiac DVT: Eliquis Ragland: None Lines: Peripheral Med Rec: Pending, f/u PT: Not ordered Code: Full Case was discussed with attending physician, Dr Leo Dorman MD PGY-1 Attending Provider Attestation/Addendum Pt was evaluated and plan formulated together with the housestaff team. I have reviewed the residents note above and agree with most of its content. Please refer to the residents note for additional details. CXR revealed mild to moderate congestive heart failure and possible superimposed pneumonia at the lung bases. The most recent echocardiogram showed an ejection fraction of 15-20%. Procalcitonin was 4.28, and WBC count was 12.5. Will treat for CHF exacerbation and pneumonia.
[2024-05-24] MEDS: FUROSEMIDE INJ 10 MG/ML 4ML VIAL 40 MG IVP ×2 (06:31→17:05)
--- NOTE | 2024-05-24 06:35 | PC.NURSE ---
PT'S DESATTED TO 66% ON 2L NC. PT PLACED ON OXY MASK AT 15L WITH NO IMPROVEMENT. MD SIMONS INFORMED AND ORDERS GIVEN FOR BIPAP, RT CALLED TO BEDSIDE STAT AT THIS TIME.
--- NOTE | 2024-05-24 06:40 | PC.NURSE ---
PT MOVED TO BED 5, DR SIMONS AND DR MARTINEZ AT BEDSIDE AND DECISION TO INTUBATE PT HAS BEEN BED DUE TO PT NOT IMPROVING O2 SATURATION. NEW ORDERS GIVEN TO INTUBATE.
--- NOTE | 2024-05-24 06:52 | PD.EVENT ---
Documentation for date of: 05/24/24 Event Note Event Note: The patient's condition has deteriorated. He became agitated and exhibited tachypnea with the use of accessory muscles. Oxygen saturation could not be obtained. BiPAP was ordered but was not tolerated by the patient. Intubation will be performed.
[2024-05-24] MEDS: SUCCINYLCHOLINE INJ 20 MG/ML VIAL 10 ML 150 MG IV (06:55)
[2024-05-24] MEDS: ETOMIDATE INJ 2 MG/ML VIAL 10 ML 20 MG IVP (06:55)
[2024-05-24] MEDS: ROCURONIUM INJ 10 MG/ML VIAL 10 ML 50 MG IVP ×2 (06:58→07:54)
--- NOTE | 2024-05-24 06:59 | XR_ITS ---
Examination: AP chest single view Technique: AP portable supine chest single view Exam date and time: December 23, 2023 0710 hrs. Comparison December 22, 2023, April 29, 2024 Indications: Hypoxic respiratory failure, postintubation, CHF and superimposed pneumonia at the lung bases on chest film May 23, 2024 Findings: Again noted moderate CHF, moderate enlargement cardiac contour prominent vascular congestion including central vascular engorgement with perihilar edema Consider superimposed pneumonia at the lung bases Endotracheal tube tip 14 mm above suze The orogastric tube is poorly visualized and may be in the stomach Prominent osteopenia Impression: Moderate CHF Consider superimposed pneumonia at the lung bases Endotracheal tube tip 14 mm above suze Recommend abdomen film follow-up to confirm proper position of the orogastric tube
[2024-05-24] MEDS: PROPOFOL 1,000 MG IVPB 1,000 MG/100 ML VIAL 2.585 MG IV ×2 (07:15→15:35)
[2024-05-24] MEDS: fentaNYL 2,500 MCG/250 ML BAG 2,500 MCG/250 ML BAG IV (07:16)
[2024-05-24] MEDS: TENECTEPLASE INJ 50 MG VIAL 45 MG IV (07:30)
--- NOTE | 2024-05-24 07:30 | PD.RESPROC ---
Procedures Procedure Date / Time 05/24/24 0730 Intubation Indication(s): acute Resp Failure and inability to protect airway Informed consent obtained: implied Time out done, and the following verified: correct patient, side and site, procedure, patient position and implants and/or equipment Sedative: etomidate Mg given: 20 Paralytic: succinylcholine Mg given: 150 Laryngoscope: [place] ET tube size: 7.5 ET tube uncuffed: No Tube secured depth (cm): 25 Tube secured location: lips Tube placement confirmation: visualized tube passing through cords, equal breath sounds bilaterally, no breath sounds over epigastrium and confirmation by capnometry Patient tolerated procedure: well Additional comments: Patient also given an additional 50mg of Rocuronium after Succinylcholine 150mg and Etomidate 20mg were given. CXR was ordered post-procedure, and showed endotracheal tube tip 14 mm above suze, will adjust, and repeat CXR when possible. Attending was present for the entire procedure. The patient tolerated the procedure well and there were no complications.
--- NOTE | 2024-05-24 08:15 | XR_ITS ---
Examination: CTA chest with intravenous contrast 2-D reconstructions 3-D reconstructions, vascular Date and time of exam: May 24, 2024 0845 hours INDICATIONS: Hypoxia low O2 saturation chest pain SOB today CTDI: vol (mGy) 19.8 DLP: (mGycm) 381 Technique: Multiple axial sections of the thorax have been obtained. 3 mm slice thickness, from below the hemidiaphragms to above the apices of the lungs. Mediastinal and lung density settings have been obtained. 2-D sagittal and coronal reconstructions. 3-D angiographic renderings, 3-D volume renderings, 3D post processing, vascular maximum intensity projections obtained. Contrast administered is 100 cc Isovue-370. Low dose protocols were performed. One or more of the following dose reduction techniques were used; automated exposure control, adjustment of the mA and/or KV according to patient size, use of iterative reconstruction technique. Findings: Endotracheal tube tip 13 mm above suze There is no opacification of the thoracic aorta, AP dimension of the ascending thoracic aorta 4.2 cm Pulmonary artery segments are not enlarged No pulmonary artery emboli Moderate enlargement cardiac contour with vascular congestion Soft opacities in the upper lung zones, more pronounced opacity in the right middle lobe and both bases Cavitary parenchymal disease in the right lower lobe axial image 247 Mild right minimal left pleural fluid Liver is mildly irregular in contour with mild free fluid subcapsular to the liver Cholelithiasis, mild ascites Spleen is not enlarged Orogastric tube in the stomach No pancreatic mass Kidneys partially visualized no hydronephrosis Moderate osteopenia with chronic osteoporotic compression T12 IMPRESSION: Retracted the tracheal tube 2 cm Aneurysmal dilatation ascending thoracic aorta 4.2 cm Negative for pulmonary artery emboli Moderate enlargement cardiac contour with significant vascular congestion Bilateral pneumonia, most prominent at the lung bases, including cavitary parenchymal disease in the right lower lobe, axial image 247 Cirrhosis versus primary hepatocellular disease Mild ascites Cholelithiasis
--- NOTE | 2024-05-24 09:09 | ECHO_ITS ---
Transthoracic Echo Report Ht (in): 69 Wt (lb): 190 Exam Location: Portable Status: Inpatient Vacuum Truck Driver: Gabriela Bain Indications: Procedure Performed: BP: 125 / 74 HR: 55 Rhythm: Sinus Technical Quality: Fair MEASUREMENTS (Male / Female) Normal Values 2D ECHO LV Diastolic Diameter PLAX 6.3 cm 4.2 - 5.9 / 3.9 - 5.3 cm LV Systolic Diameter PLAX 5.7 cm IVS Diastolic Thickness 1.0 cm 0.6 - 1.0 / 0.6 - 0.9 cm LVPW Diastolic Thickness 1.0 cm 0.6 - 1.0 / 0.6 - 0.9 cm LV Relative Wall Thickness 0.3 LVOT Diameter 2.4 cm LA Volume Index 57.4 cm?/m? 16 - 28 cm?/m? Ascending Aorta Diameter 3.5 cm M-MODE Aortic Root Diameter MM 3.5 cm LA Systolic Diameter MM 5.0 cm LA Ao Ratio MM 1.4 MV E Point Septal Separation 1.5 cm AV Cusp Separation MM 2.5 cm DOPPLER AV Peak Velocity 112.0 cm/s AV Peak Gradient 5.0 mmHg AV Mean Gradient 3.0 mmHg AV Velocity Time Integral 19.1 cm AI Peak Velocity 281.0 cm/s AI Peak Gradient 31.6 mmHg AI Pressure Half Time 504.5 ms LVOT Peak Velocity 81.3 cm/s LVOT Peak Gradient 2.6 mmHg LVOT Velocity Time Integral 14.7 cm LVOT Cardiac Index 1769.9 cm?/min?m? AV Area Cont Eq vti 3.5 cm? AV Area Cont Eq pk 3.3 cm? MV Peak Velocity 87.5 cm/s MV Peak Gradient 3.1 mmHg MV Mean Velocity 57.6 cm/s MV Mean Gradient 2.0 mmHg MV Area PHT 4.9 cm? MR Peak Velocity 291.0 cm/s MR Peak Gradient 33.9 mmHg Mitral E Point Velocity 85.9 cm/s Mitral A Point Velocity 64.5 cm/s Mitral E to A Ratio 1.3 LV E' Lateral Velocity 6.9 cm/s Mitral E to LV E' Lateral Ratio 12.5 LV E' Septal Velocity 5.1 cm/s Mitral E to LV E' Septal Ratio 16.8 TR Peak Velocity 230.0 cm/s TR Peak Gradient 21.2 mmHg FINDINGS Left Ventricle Dilated LV. Severe systolic dysfunction. Severe global hypokinesis LVEF estimated at 20-25%. Right Ventricle The right ventricle is mildly dilated. Mild systolic dysfunction. The estimated right ventricular sy stolic pressure, 48mmHg. RAP 15. Left Atrium The left atrium is severely dilated. Right Atrium The right atrium is severely dilated. Atrial Septum The interatrial septum appears normal with no evidence of a shunt. Aorta The ascending aorta and aortic root is mildly dilated. Mitral Valve The mitral valve is normal by two-dimensional, color flow and Doppler interrogation. There is mild m itral valve regurgitation. Aortic Valve The aortic valve is trileaflet and normal by two-dimensional, color flow and Doppler interrogation. There is mild aortic valve regurgitation. Tricuspid Valve The tricuspid valve is normal by two-dimensional, color flow and Doppler interrogation. There is mil d tricuspid valve regurgitation. Pulmonic Valve The pulmonic valve is normal by two-dimensional, color flow and Doppler interrogation. There is mild pulmonic valve regurgitation. Vessels The pulmonary artery appears normal. The inferior vena cava pulmonary and hepatic veins appear denis l. Pericardium The pericardium is normal by two-dimensional imaging. There is no significant pericardial effusion. Other Findings Pleural effusion present. CONCLUSIONS Dilated cadiomyopathy with severe global hypokineis . Estimated EF 20-25% LV THROMBUS IS NOT PRESENT /COMPLETELY RESOLVED Mild RV dilated. Mild RV dyfunction. Estimated RVSP 48mmHg. Severe biatrial dilatation Mild Mitral regurgitation Mild aortic regurgitation MIld TR PI. Pleural effusion present. Alice Su (Electronically Signed) Final Date: 25 May 2024 18:07
[2024-05-24 09:14] LABS: Allen Test Performed/OK; Base Excess -11 (-3-3); HCO3 14 mEq/L (20-26); Inspired O2, VO2 Liters 15 L/min; O2 Saturation 101 % (91-98); PCO2 29 mmHg (32.0-48.0); PO2 329 mmHg (83-108); Puncture Site Right Radial; pH, Arterial 7.29 (7.35-7.45)
[2024-05-24 09:29] LABS: Basophils % (Auto) 0 % (0-2.5); Eosinophils % (Auto) 0 % (0-10); Hematocrit 39.5 % (41.0-53.0); Hemoglobin 12.8 g/dL (13.5-16.0); Immature Granulocytes % (Auto) 1 % (0-0); Immature Granulocytes Auto 0.06 Thou/mm3 (0.00-0.00); Lymphocytes # (Auto) 0.4 Thou/mm3 (1.0-4.8); Lymphocytes % (Auto) 3 % (10-50); Mean Corpuscular HGB Conc 32.4 g/dl (31.0-37.0); Mean Corpuscular Hemoglobin 28.4 pg (25.0-35.0); Mean Corpuscular Volume 88 fL (80-100); Monocytes # (Auto) 0.5 Thou/mm3 (0.0-0.8); Monocytes % (Auto) 5 % (0-12); Neutrophils # (Auto) 10.8 Thou/mm3 (1.8-7.7); Neutrophils % (Auto) 92 % (37-80); Nucleated Red Blood Cell # 0.03 Thou/mm3 (0.00-0.00); Nucleated Red Blood Cell % 0 /100 WBC (0); Platelet Count 200 Thou/mm3 (140-440); RDW Standard Deviation 58.4 fL (35.1-43.9); Red Blood Count 4.51 Miln/mm3 (4.50-5.90); White Blood Count 11.8 Thou/mm3 (3.8-10.6)
--- NOTE | 2024-05-24 09:35 | PC.NURSE ---
Placed patient on right side and O2 sautrations durastically improved to 100% was able to stop assisting patient with ventilation via BVM.
[2024-05-24 10:15] LABS: Alanine Aminotransferase 83 U/L (10-49); Albumin, Serum 3.8 gm/dL (3.4-4.8); Albumin/Globulin Ratio 1.2 (1.2-2.2); Alkaline Phosphatase 131 U/L (46-116); Anion Gap 13 (7-16); Aspartate Amino Transferase 69 U/L (0-34); BUN/Creatinine Ratio 17 Ratio (12-20); Bilirubin,Total 2.9 mg/dL (0.3-1.2); Blood Urea Nitrogen 29 mg/dL (9-23); Calcium (Corrected) 8.2 mg/dL (8.5-10.1); Carbon Dioxide 16.1 mMol/L (20.0-31.0); Chloride 100 mMol/L (98-107); Creatine Kinase 135 U/L (34-171); Creatinine (Component) 1.7 mg/dL (0.6-1.3); Estimated Creatinine Clearance 48.4 mL/min (>60); Globulin 3.1 gm/dL (2.3-3.5); Glucose 131 mg/dL (74-106); Magnesium 1.8 mg/dL (1.6-2.6); Osmolality,Calculated 266 (275-295); Potassium 4.8 mMol/L (3.4-5.1); Sodium 129 mMol/L (136-145); Total Protein 6.9 gm/dL (5.7-8.2); eGFR 45 See Note
--- NOTE | 2024-05-24 10:22 | PC.CC ---
Pt Miguelito Sheikh is a 64 yr old male, admitted to ICU/ultrasonic tester services for acute respiratory failure. Hx obtained from chart. Pt intubated and unable to engage in assessment. [id number] CC left message for pts sister Svetlana Cruz [phone], whom in the past pt has identified as surrogate DM. [employer] CC requested call back in vague message. From historical charting, pt reports homelessness, chronic methamphetamine abuse. Unclear if pt has assigned primary provider. Pt has denied in past needing DME, stating he is independent with ambulation and in completing his ADLs. Pt will need to be assessed for needs at time of D/c.
[2024-05-24 10:27] LABS: Troponin I 0.461 ng/mL (0.0-0.045)
[2024-05-24 10:41] LABS: Collection Type, Urine Clean Catch
[2024-05-24 10:58] LABS: Amorphous Crystals,Urine Present (Absent); Bacteria,Urine Rare; Bilirubin,Urine Negative (Negative); Blood,Urine 3+ (Negative); Color,Urine Yellow (Lt Yel-Yel); Glucose, Urine Negative (Negative); Granular Casts,Urine < 1 /hpf (0-1); Ketones,Urine Negative (Negative); Leukocyte Esterase,Urine Negative (Negative); Nitrite,Urine Negative (Negative); PH,Urine 6.5 (5.0-7.0); Protein,Urine 3+ (Neg - Trace); RBC,Urine 132 /hpf (0-3); Specific Gravity,Urine 1.035 (1.001-1.035); Squamous Epithelial Cell,Urine 3 /hpf (0-5); WBC,Urine 37 /hpf (0-5)
[2024-05-24 11:08] LABS: Amphetamine/Methamp Scrn,U Negative (Negative); Barbiturate Screen,Urine Negative (Negative); Benzodiazepines Screen,Urine Negative (Negative); Benzoylecgonine Screen, Ur Negative (Negative); Fentanyl Screen,Urine Positive (Negative); Opiate Screen,Urine Negative (Negative); THC Screen,Urine Negative (Negative)
[2024-05-24 11:15] LABS: Clarity,Urine Hazy (Clear/Hazy)
[2024-05-24] MEDS: FUROSEMIDE INJ 10 MG/ML 4ML VIAL 60 MG IVP (12:05)
[2024-05-24 12:21] LABS: Reflex Lactate? Y
[2024-05-24] MEDS: PIPER/TAZO INJ 3.375 GM in SODIUM CHLORIDE 0.9% (P) 50 ML IV (12:33)
[2024-05-24 12:47] LABS: Lactic Acid, 3 HR 1.6 mMol/L (0.4-2.0)
[2024-05-24 14:06] LABS: Base Excess -5 (-3-3); HCO3 22 mEq/L (20-26); Inspired Oxygen, FIO2 40 %; O2 Saturation 96 % (91-98); PCO2 46 mmHg (32.0-48.0); PO2 87 mmHg (83-108); pH, Arterial 7.29 (7.35-7.45)
[2024-05-24 14:08] LABS: Allen Test Not Performed; Puncture Site Right Radial
[2024-05-24] MEDS: Vancomycin Inj 2,000 MG in SODIUM CHLORIDE 0.9% 500 ML 500 ML 250 MG IV (14:13)
[2024-05-24 16:10] LABS: Troponin I 2.341 ng/mL (0.0-0.045)
--- NOTE | 2024-05-24 17:00 | PD.RESPROC ---
Procedures Procedure Date / Time 05/24/24 1600 Procedural Time Out Time out performed: Yes Arterial Line Indication(s): shock and other (Accurate BP mesurement) Informed consent obtained: implied and procedure done urgently Time out done, and the following verified: correct patient, side and site, procedure, patient position and implants and/or equipment Size (Gauge): 20 Technique used: guide wire technique Post-Procedure: line sutured into place and dry sterile dressing placed Patient tolerated procedure: well and no complications EBL(ml): 5 Complications: none Site: right Procedure comment: The procedure was done under the supervision of my attending physician MD Eleazar Saavedra MD, PGY2 Attending note ...................... I was present for and assisted in all ennis aspects of this procedure.
--- NOTE | 2024-05-24 17:04 | PD.RESCONSUL ---
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 He states that his abdominal pain is only present when he coughs or present for a long time. Patient presented to the ED yesterday for similar symptoms but left AMA. He reports that he has not been consistent with follow-up in [facility] with credit processor as it is difficult for him to make these appointments, he has also not picked up any of his medications and so has been without medications since his last discharge 3 weeks ago when he was admitted for management of acute hypoxic respiratory failure with acute decompensated heart disease. Patient was admitted to the floors for acute close respiratory failure secondary to acute decompensated heart failure. Before being transported to floors, patient developed acute worsening hypoxic respiratory failure requiring intubation. ICU was consulted for management of intubated patient. Patient remained severely hypoxic, O2 saturation as low as 50%, when ventilated requiring manual bag-pump oxygen delivery. Patient was given tenecteplase for possible pulmonary embolism. Chest imaging showed CHF with vascular congestion, bibasilar pneumonia. Patient received Lasix with increasing urinary output, initiated on antibiotics. Patient troponins trending up, EKG ordered, did not show STEMI. Ventilator was attempted again, patient tolerated well, maintaining saturations on ventilator. Will continue to treat underlying conditions. cc:: cc: Kiko Ortega MD Review of Systems Review of Systems ROS Unobtainable: unobtainable due to medical condition and due to endotracheal tube Exam Vital Signs Temp Pulse Resp BP Pulse Ox O2 Del Method O2 Flow Rate 97.4 F 54 L 23 H 104/79 100 Mechanical Ventilation 15 05/24/24 16:00 05/24/24 16:15 05/24/24 13:30 05/24/24 16:15 05/24/24 16:15 05/24/24 14:00 05/24/24 06:25 FiO2 40 05/24/24 16:00 Narrative Exam PE: Gen: Well-developed and well-nourished. Ill-appearing. HEENT: Atraumatic. Pinpoint pupils, bloodshot eyes, dry mucous membranes. CVS: normal S1 and S2. RRR. No M/R/G. Resp: Wheezing in all lung yu, worse on right side. Bibasilar crackles. Abd: soft, non-tender, non-distended. MSK: Good ROM in BUE & BLE. 3+ pitting edema BLE. Neuro: CN II-XII grossly intact. Sedated and intubated. Results Labs 05/24/24 09:15 05/24/24 09:15 Labs: Short CBC 05/23/24 05/24/24 Range/Units 21:29 09:15 WBC 12.5 H 11.8 H (3.8-10.6) Thou/mm3 Hgb 13.5 12.8 L (13.5-16.0) g/dL Hct 41.0 39.5 L (41.0-53.0) % Plt Count 97 L D 200 D (140-440) Thou/mm3 BMP 05/23/24 05/24/24 21:29 09:15 Sodium 134 L 129 L Potassium 4.5 4.8 Chloride 103 100 Carbon Dioxide 20.6 16.1 L BUN 25 H 29 H Creatinine 1.3 1.7 H Glucose 86 131 H D Calcium 8.8 8.0 L Cardiac Enzymes 05/23/24 05/24/24 05/24/24 Range/Units 21:29 09:15 15:15 Total Creatine Kinase 135 (34-171) U/L Troponin I 0.273 H* 0.461 H* 2.341 H* D (0.0-0.045) ng/mL Liver Function 05/23/24 05/24/24 Range/Units 21:29 09:15 Total Bilirubin 2.9 H 2.9 H (0.3-1.2) mg/dL AST 83 H 69 H (0-34) U/L ALT 87 H 83 H (10-49) U/L Alkaline Phosphatase 130 H 131 H (46-116) U/L Albumin 3.8 3.8 (3.4-4.8) gm/dL Urine 05/23/24 Range/Units 10:25 Urine Color Yellow (Lt Yel-Yel) Urine Clarity Hazy (Clear/Hazy) Urine pH 6.5 (5.0-7.0) Ur Specific [place] 1.035 (1.001-1.035) Urine Protein 3+ A (Neg - Trace) Urine Glucose (UA) Negative (Negative) ABG Interpretation ABG results: 05/24/24 05/24/24 09:09 13:55 ABG pH 7.29 L 7.29 L ABG pCO2 29 L 46 D ABG pO2 329 H 87 D ABG HCO3 14 L 22 ABG O2 Saturation 101 H 96 ABG Base Excess -11 L -5 L Quality Measures Quality Measures VTE prophylaxis Medications Home Medications and Allergies Allergies Allergy/AdvReac Type Severity Reaction Status Date / Time No Known Allergies Allergy Verified 05/21/24 19:15 Visit Medications Acetaminophen (Acetaminophen 325 Mg Tablet) 650 mg PO Q6H PRN PRN Reason: Fever >101.5 Stop: 06/23/24 05:08 Acetaminophen (Acetaminophen 325 Mg Tablet) 650 mg PO Q4HR PRN PRN Reason: PAIN SCALE 1-3 (mild Stop: 06/23/24 09:07 Acetaminophen (Acetaminophen Supp 650 Mg Supp) 650 mg DE Q4HR PRN PRN Reason: PAIN SCALE 1-3 (mild Stop: 06/23/24 09:07 Al Hydrox/Mg Hydrox/Simethicone (Mg Hyd/Al Hyd/Marsha (Maalox Reg) Susp 30 Ml Udc) 30 ml PO Q4HR PRN PRN Reason: Heartburn or Upset Stomach Stop: 06/23/24 09:07 Aspirin (Aspirin Ec 81 Mg Tabec) 81 mg PO QDAY [facility] Stop: 06/23/24 08:59 Last Admin: 05/24/24 09:57 Dose: Not Given Atorvastatin Calcium (Atorvastatin Calcium 20 Mg Tablet) 40 mg PO HS [facility] Stop: 06/23/24 20:59 Enoxaparin Sodium (Enoxaparin Sod Inj 40 Mg/0.4 Ml Syringe) 40 mg SC QDAY [place] Stop: 06/08/24 08:59 Famotidine (Famotidine Inj 10 Mg/Ml Vial 2 Ml) 20 mg IVP QDAY [facility] Stop: 06/24/24 08:59 Furosemide (Furosemide Inj 10 Mg/Ml 4ml Vial) 40 mg IVP BIDD [facility] Stop: 06/23/24 06:44 Last Admin: 05/24/24 07:25 Dose: Not Given Propofol (Diprivan Ivpb) 1,000 mg in 100 mls @ 2.585 mls/hr IV .Q24H PRN; Protocol PRN Reason: PER PROTOCOL Stop: 06/23/24 07:00 Last Titration: 05/24/24 16:00 Dose: 5 mcg/kg/min, 2.585 mls/hr Fentanyl Citrate (Sublimaze Inj 2,500 Mcg/250 Ml Bag) 2,500 mcg in 250 mls @ 2.5 mls/hr IV .Q24H PRN; Protocol PRN Reason: PER PROTOCOL Stop: 05/29/24 07:01 Last Titration: 05/24/24 16:00 Dose: 125 mcg/hr, 12.5 mls/hr Piperacillin/Tazobactam/Dextrose (Zosyn) 50 mls @ 12.5 mls/hr IV Q8H [facility] Stop: 05/31/24 15:59 Vancomycin/Sodium Chloride (Vancomycin/Ns 750 Mg Ivpb) 750 mg in 150 mls @ 150 mls/hr IV Q24H [facility] Stop: 06/01/24 12:59 Magnesium Hydroxide (Milk Of Magnesia Susp 30 Ml Udc) 30 ml PO QDAY PRN PRN Reason: CONSTIPATION Stop: 06/23/24 09:07 Metoprolol Succinate (Metoprolol Succinate Xl 25 Mg Tabcr) 25 mg PO QDAY [facility] Stop: 06/23/24 08:59 Last Admin: 05/24/24 09:57 Dose: Not Given Nitroglycerin (Nitroglycerin 0.4 Mg Subl Btl #25) 0.4 mg SL Q5MIN PRN PRN Reason: CHEST PAIN Pharmacy Consult (Vancomycin Pharmacy To Dose 1 Each Each) 1 each IV QDAY [facility] Stop: 06/23/24 12:14 Last Admin: 05/24/24 14:49 Dose: Not Given Discontinued Medications Albuterol/Ipratropium (Albuterol/Ipratropium (Duoneb) Rt Lacie 3 Ml Nebu) 3 ml INH X1 ONE Stop: 05/24/24 03:40 Last Admin: 05/24/24 03:51 Dose: 3 ml Amoxicillin (Amoxicillin 250 Mg Capsule) 1,000 mg PO X1 ONE Stop: 05/24/24 03:41 Last Admin: 05/24/24 04:10 Dose: 1,000 mg Dexamethasone Sodium Phosphate (Dexamethasone Sod Phos Inj 10 Mg/Ml Vial) 10 mg PO X1 ONE Stop: 05/24/24 03:40 Last Admin: 05/24/24 04:11 Dose: 10 mg Etomidate (Etomidate Inj 2 Mg/Ml Vial 10 Ml) 20 mg IVP X1 ONE Stop: 05/24/24 06:48 Last Admin: 05/24/24 06:55 Dose: 20 mg Furosemide (Furosemide Inj 10 Mg/Ml 4ml Vial) 40 mg IVP QDAY [facility] Stop: 06/23/24 08:59 Furosemide (Furosemide Inj 10 Mg/Ml 4ml Vial) 40 mg IVP X1 ONE Stop: 05/24/24 06:24 Last Admin: 05/24/24 06:31 Dose: 40 mg Furosemide (Furosemide Inj 10 Mg/Ml 4ml Vial) 60 mg IVP X1 ONE Stop: 05/24/24 11:35 Last Admin: 05/24/24 12:05 Dose: 60 mg Ceftriaxone Sodium/Dextrose (Rocephin/D5w 1gm Iv Premix) 50 mls @ 100 mls/hr IV QDAY [facility] Stop: 06/01/24 08:59 Azithromycin 500 mg/ Sodium (Chloride) 250 mls @ 250 mls/hr IV QDAY [facility] Stop: 06/01/24 08:59 Azithromycin 500 mg/ Sodium (Chloride) 250 mls @ 250 mls/hr IV X1 ONE Stop: 05/24/24 06:29 Last Infusion: 05/24/24 06:35 Dose: Infused Ceftriaxone Sodium/Dextrose (Rocephin/D5w 1gm Iv Premix) 50 mls @ 100 mls/hr IV X1 ONE Stop: 05/24/24 05:59 Last Infusion: 05/24/24 06:35 Dose: Infused Piperacillin Sod/Tazobactam (Sod 3.375 gm/ Sodium Chloride) 50 mls @ 100 mls/hr IV X1 ONE Stop: 05/24/24 12:44 Last Admin: 05/24/24 12:33 Dose: 100 mls/hr Vancomycin HCl 2,000 mg/ (Sodium Chloride) 500 mls @ 250 mls/hr IV X1 [facility] Stop: 05/31/24 12:59 Last Admin: 05/24/24 14:13 Dose: 250 mls/hr Vancomycin HCl 2,000 mg/ (Sodium Chloride) 500 mls @ 250 mls/hr IV X1 ONE Stop: 05/24/24 16:29 Last Admin: 05/24/24 14:50 Dose: Not Given Rocuronium [place] (Rocuronium Inj 10 Mg/Ml Vial 10 Ml) 50 mg IVP X1 ONE Stop: 05/24/24 06:59 Last Admin: 05/24/24 06:58 Dose: 50 mg Rocuronium [place] (Rocuronium Inj 10 Mg/Ml Vial 10 Ml) 50 mg IVP X1 ONE Stop: 05/24/24 07:55 Last Admin: 05/24/24 07:54 Dose: 50 mg Succinylcholine Chloride (Succinylcholine Inj 20 Mg/Ml Vial 10 Ml) 150 mg IV X1 ONE Stop: 05/24/24 06:48 Last Admin: 05/24/24 06:55 Dose: 150 mg Tenecteplase (Tenecteplase Inj 50 Mg Vial) 45 mg IV X1 ONE Stop: 05/24/24 07:31 Last Admin: 05/24/24 07:30 Dose: 45 mg Assessment & Plan Plan 64-year-old male with a past medical history of HFrEF with ejection fraction of 15 to 20%, chronic left ventricular thrombus, methamphetamine abuse, 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 Neuro: #Sedated and intubated Patient was sedated and intubated due to acute hypoxic respiratory failure. -Treat underlying conditions -Will wean patient off sedation as appropriate Cardio: #HFrEF, dilated cardiomyopathy Patient patient has history of dilated cardiomyopathy and HFrEF with ejection fraction 15-20% as of 01/21/2024 due to meth abuse. Patient has poor compliance to medications due to homelessness, has expressed difficulty keeping track of his medications. Patient is currently volume overloaded with clear signs of significant vascular congestion on chest imaging, bilateral lower extremity pitting edema. Patient received 40 and 60 mg IV Lasix with probable increasing urinary output. -Echo pending -Lasix 40 mg IV twice daily -Strict I's and O's #Troponinemia DDx: NSTEMI type I versus type II Patient's troponins are elevated, trending up, most recent 2.34. EKG was ordered which did not show significant ST changes. NSTEMI versus demand ischemia. Patient has history of cardiac disease and medical noncompliance. Patient did not endorse chest pain prior to intubation, currently unable to information about symptoms. -Cardio consult pending, follow-up -Echo pending, follow-up -Atorvastatin 40 mg OG at bedtime -Aspirin 81 mg OG daily -Metoprolol 25 mg OG daily #Sinus bradycardia DDx: Sick sinus syndrome versus metoprolol use Patient is bradycardic, heart rate in the 50s. Saint intubated, unable to provide information about symptoms. Patient appears well-perfused on clinical exam. -Telemonitoring -Treat underlying conditions Pulm: #Acute hypoxic respiratory failure DDx: Multifactorial: CHF exacerbation plus bilateral pneumonia (aspiration versus community-acquired) Patient presented with shortness of breath for several days. Patient history of heart failure reduced ejection fraction, medical noncompliance. Has been unable to receive medications for approximately 3 weeks per chart review. Chest imaging indicated significant vascular congestion and bibasilar pneumonia, along with cavitary disease in the right lung. In the ED patient decompensated requiring intubation. Patient initially had difficulty saturating on vent requiring manual bagging, eventually saturations stabilized and was able to be ventilated. Once on the floors when signs able to titrate down to 40% FiO2. -Echo pending -Broad-spectrum antibiotics -Diuretics -Ventilated, maintain O2 saturations GI: #Transaminitis Suspect due to acute illness. LFTs elevated, trending down. No signs of RUQ tenderness. -Monitor Renal: #GEOVANY Most likely due to volume overload. Patient is not severely volume overloaded state, vascular congestion on chest imaging, 3+ bilateral lower extremity pitting edema. Patient producing adequate urine. -Monitor urine output -Avoid nephrotoxic medications -Diuresis -Daily labs #Hyponatremia Mild, asymptomatic. -Monitor Endo: #No active issues Heme: #Normocytic anemia DDx: Hemolysis due to infection versus early MANSOOR versus blood loss (less likely) Patient is anemic with hemoglobin downtrending, to 12.8. Patient is adequately perfused, downtrend has been slow, no signs of hemorrhage. Patient is severely ill, CHF exacerbation and pneumonia. -Monitor #Leukocytosis Patient has pneumonia seen on chest imaging. Possible component of reaction to acute illness. -Treat underlying condition -Monitor ID: #Pneumonia DDx: Aspiration versus community-acquired Patient has bibasilar pneumonia seen on CT chest imaging. Patient has leukocytosis, is afebrile. Developed acute hypoxic respiratory failure requiring intubation and ventilation. -Vancomycin pharmacy dosing IV (started 05/24) -Zosyn 3.375 mg IV every 8 hours (started 05/24) -Blood cultures pending -Sputum cultures pending Skin/MSK: #No active issues ICU Health maintenance: Mechanical ventilation: Yes Sedation: Propofol and fentanyl Diet: N.p.o. DVT ppx: Lovenox GI ppx: Pepcid Ragland: Yes IV lines: 3 peripheral Central line: No Arterial line: Yes Code status: Full code Plan of care discussed with attending Dr. Degroot. Seng Oakes MD PGY-1
[2024-05-24] MEDS: PIPER/TAZO 3.375 GM 50 ML IV (17:06)
--- NOTE | 2024-05-24 17:14 | PD.INTPROG ---
Documentation for date of: 05/24/24 Subjective Subjective Interval history: This is a 64yo M admitted to the ICU for acute hypoxic resp failure. pt was seen in ER room 5. Apparently he presented to the ER for SOB and has a h/o CHF . He was originally admitted to tele however had an abrupt decompensation this morning requiring intubation. After he was intubated his sats dropped to the 40s and he required manual bagging for over 2hrs. ICU was called immediately after intubation and was present throughout his entire stay in the ER. During this time his sats rarely improved to >85%. Given his presentation and his LE edema it was felt that a massive PE was within the differential and therefore a dose of tPA 45mg was given. He was sent for a CTA after 30min which did not show any evidence of PE. A bedside echo was performed in the ER by myself which showed a barely mobile LV with perhaps an EF of 5-10%. ICU residents assisted the RTs with manually bagging the pt the entire ER stay. After ~2hrs his sats stabilized and he was reconnected to the vent. After arrival to the ICU his FiO2 was rapidly weened down to 40%. On CXR there is some vasc congestion with infiltrate however not sufficient to explain pts profound hypoxia. CTA showed b/l pna and some cavitary dz in RLL. Pt does have a h/o cardiomyopathy 2/2 meth use. pt is homeless and has a h/o non compliance. Critical Care Note Critical care time (min.): 95 Exam Vital Signs Temp Pulse Resp BP Pulse Ox O2 Del Method O2 Flow Rate 97.4 F 54 L 23 H 104/79 100 Mechanical Ventilation 15 05/24/24 16:00 05/24/24 16:15 05/24/24 13:30 05/24/24 16:15 05/24/24 16:15 05/24/24 14:00 05/24/24 06:25 FiO2 40 05/24/24 16:00 Narrative Exam Gen- intubated, sedated, nl body habitus HEENT- NC/AT, mucosa hydrated, sclera anicteric, ETT/OGT in place Chest- LCTAB, diminished at base, no crackles, no wheeze, HRRR, tachycardic Abd- s/nt/bs+ Ext- edema 2-3+ pitting b/l LE, dusky cyanosis fingers and toes/feet, pulses weak, no clubbing Vent AC VC Physical Exam Completion Physical Exam Complete?: Yes 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 05/25/24 05:24 05/25/24 05:24 Labs: Laboratory Results - last 24 hr 05/23/24 05/23/24 05/24/24 10:25 21:29 01:08 WBC 12.5 H RBC 4.74 Hgb 13.5 Hct 41.0 MCV 87 MCH 28.5 MCHC 32.9 RDW Std Deviation 56.2 H Plt Count 97 L D Neut % (Auto) 83 H Lymph % (Auto) 6 L [place] % (Auto) 10 Eos % (Auto) 0 Baso % (Auto) 0 Neut # (Auto) 10.4 H Lymph # (Auto) 0.8 L [place] # (Auto) 1.3 H Eos # (Auto) 0.0 Baso # (Auto) 0.0 Immature Gran # (Auto) 0.07 H Absolute Nucleated RBC 0.03 H Immature Gran % 1 H Nucleated RBC % 0 PT 15.5 H INR 1.5 H APTT 30.6 Puncture Site ABG pH ABG pCO2 ABG pO2 ABG HCO3 ABG O2 Saturation ABG Base Excess Oxygen Liter Flow FiO2 Sodium 134 L Potassium 4.5 Chloride 103 Carbon Dioxide 20.6 Anion Gap 10 BUN 25 H Creatinine 1.3 Estim Creat Clear Calc 63.3 eGFR > 60 BUN/Creatinine Ratio 19 Glucose 86 Calculated Osmolality 271 L Lactic Acid 2.8 H Calcium 8.8 Corrected Calcium 9.0 Magnesium 1.7 Total Bilirubin 2.9 H AST 83 H ALT 87 H Alkaline Phosphatase 130 H Total Creatine Kinase Troponin I 0.273 H* B-Natriuretic Peptide 2286 H* Total Protein 7.4 Albumin 3.8 Globulin 3.6 H Albumin/Globulin Ratio 1.1 L Lipase 34 Procalcitonin 4.28 H Ur Collection Type Clean Catch Urine Color Yellow Urine Clarity Hazy Urine pH 6.5 Ur Specific [place] 1.035 Urine Protein 3+ A Urine Glucose (UA) Negative Urine Ketones Negative Urine Blood 3+ A Urine Nitrite Negative Urine Bilirubin Negative Urine Urobilinogen (Auto) 3.0 Ur Leukocyte Esterase Negative Urine RBC 132 H Urine WBC 37 H Ur Squamous Epith Cells 3 Amorphous Crystals Present A Urine Bacteria Rare Granular Casts < 1 Urine Opiates Screen Negative Urine Fentanyl Screen Positive A Ur Barbiturates Screen Negative U Amphetamin/Meth Scrn Negative U Benzodiazepines Scrn Negative U Cocaine Metab Screen Negative U Marijuana (THC) Screen Negative Ethyl Alcohol < 3.0 05/24/24 05/24/24 05/24/24 04:55 09:09 09:15 WBC 11.8 H RBC 4.51 Hgb 12.8 L Hct 39.5 L MCV 88 MCH 28.4 MCHC 32.4 RDW Std Deviation 58.4 H Plt Count 200 D Neut % (Auto) 92 H Lymph % (Auto) 3 L [place] % (Auto) 5 Eos % (Auto) 0 Baso % (Auto) 0 Neut # (Auto) 10.8 H Lymph # (Auto) 0.4 L [place] # (Auto) 0.5 Eos # (Auto) 0.0 Baso # (Auto) 0.0 Immature Gran # (Auto) 0.06 H Absolute Nucleated RBC 0.03 H Immature Gran % 1 H Nucleated RBC % 0 PT INR APTT Puncture Site Right Radial ABG pH 7.29 L ABG pCO2 29 L ABG pO2 329 H ABG HCO3 14 L ABG O2 Saturation 101 H ABG Base Excess -11 L Oxygen Liter Flow 15 FiO2 Sodium 129 L Potassium 4.8 Chloride 100 Carbon Dioxide 16.1 L Anion Gap 13 BUN 29 H Creatinine 1.7 H Estim Creat Clear Calc 48.4 L eGFR 45 L BUN/Creatinine Ratio 17 Glucose 131 H D Calculated Osmolality 266 L Lactic Acid 2.0 5.0 H* Calcium 8.0 L Corrected Calcium 8.2 L Magnesium 1.8 Total Bilirubin 2.9 H AST 69 H ALT 83 H Alkaline Phosphatase 131 H Total Creatine Kinase 135 Troponin I 0.461 H* B-Natriuretic Peptide Total Protein 6.9 Albumin 3.8 Globulin 3.1 Albumin/Globulin Ratio 1.2 Lipase Procalcitonin Ur Collection Type Urine Color Urine Clarity Urine pH Ur Specific [place] Urine Protein Urine Glucose (UA) Urine Ketones Urine Blood Urine Nitrite Urine Bilirubin Urine Urobilinogen (Auto) Ur Leukocyte Esterase Urine RBC Urine WBC Ur Squamous Epith Cells Amorphous Crystals Urine Bacteria Granular Casts Urine Opiates Screen Urine Fentanyl Screen Ur Barbiturates Screen U Amphetamin/Meth Scrn U Benzodiazepines Scrn U Cocaine Metab Screen U Marijuana (THC) Screen Ethyl Alcohol 05/24/24 05/24/24 05/24/24 12:38 13:55 15:15 WBC RBC Hgb Hct MCV MCH MCHC RDW Std Deviation Plt Count Neut % (Auto) Lymph % (Auto) [place] % (Auto) Eos % (Auto) Baso % (Auto) Neut # (Auto) Lymph # (Auto) [place] # (Auto) Eos # (Auto) Baso # (Auto) Immature Gran # (Auto) Absolute Nucleated RBC Immature Gran % Nucleated RBC % PT INR APTT Puncture Site Right Radial ABG pH 7.29 L ABG pCO2 46 D ABG pO2 87 D ABG HCO3 22 ABG O2 Saturation 96 ABG Base Excess -5 L Oxygen Liter Flow FiO2 40 Sodium Potassium Chloride Carbon Dioxide Anion Gap BUN Creatinine Estim Creat Clear Calc eGFR BUN/Creatinine Ratio Glucose Calculated Osmolality Lactic Acid 1.6 Calcium Corrected Calcium Magnesium Total Bilirubin AST ALT Alkaline Phosphatase Total Creatine Kinase Troponin I 2.341 H* D B-Natriuretic Peptide Total Protein Albumin Globulin Albumin/Globulin Ratio Lipase Procalcitonin Ur Collection Type Urine Color Urine Clarity Urine pH Ur Specific [place] Urine Protein Urine Glucose (UA) Urine Ketones Urine Blood Urine Nitrite Urine Bilirubin Urine Urobilinogen (Auto) Ur Leukocyte Esterase Urine RBC Urine WBC Ur Squamous Epith Cells Amorphous Crystals Urine Bacteria Granular Casts Urine Opiates Screen Urine Fentanyl Screen Ur Barbiturates Screen U Amphetamin/Meth Scrn U Benzodiazepines Scrn U Cocaine Metab Screen U Marijuana (THC) Screen Ethyl Alcohol Assessment & Plan Additional Assessment Additional Assessment: In summary this is a 64yo M admitted with 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 myocardial stunning v ongoing decline in EF CT shows pulmonary edema, will diures as able Tropinemia- ? demand ischemia, check EKG, on ASA, Resp Acute hypoxic resp failure-patient was intubated in the ER. Immediately after intubation sats dropped down to the 30s and 40s. Patient required manual bagging for approximately 2 hours. During this time he would intermittently be reconnected to the ventilator however immediately dropped back down to the 70s with good waveform. Given his presentation, his lower extremity edema and his sudden hypoxia was felt that he may have developed a massive PE and was given tPA. His CTA did not demonstrate any PE. The patient slowly gradually recovered and was placed back on the ventilator. His chest x-ray does not show sufficient infiltrate to explain such profound hypoxia. Given his extremely poor LV contractility question if this may have been due to poor cardiac output as well. Upon arrival to the ICU the patient had been stabilized on the ventilator. Will continue to wean FiO2 and follow-up on ABG Aspiration PNA-on antibiotics, follow-up on cultures Renal HypoNa-hypervolemic hyponatremia, patient requires diuresis GEOVANY-monitor I's and O's, avoid nephrotoxins, follow-up with urinary output, likely related to patient's instability on arrival. Lactic Acidosis-likely related to his profound hypoxia GI Transaminitis- ? 2/2 congestive hepatopathy, continue to follow GI prophylaxis-PPI Endo stable Heme Leukocytosis-reactive versus related to pneumonia Anemia-mild monitor DVT proph-Lovenox 40 ID Aspiration PNA- on abx case d/w ICU team labs, imaging, records reviewed ~95ccmin required for eval, exam, review, intervention, discussion and formulation of POC for this critically ill pt with heart failure and respiratory failure at high risk for further and ongoing decompensation Provider Notation Provider Notation: Although this document has been carefully reviewed, there may still be some phonetic and other typographical errors. These errors are purely grammatical due to imperfections in the software program and should not be construed in any way to compromise the substance of the patient's medical care during this visit. Thank you for the opportunity and privilege in assisting you with this patient's care and management.
--- NOTE | 2024-05-24 17:35 | XR_ITS ---
Examination: Venous duplex lower extremity sonogram, bilateral. Date and time of exam: May 24, 2024 2119 hrs. Indications: Patient not mobile, leg swelling and pain this week Technique: Multiple sonographic images of the deep venous system have been obtained. B-mode/2-D grayscale imaging of vascular structures and Doppler spectral analysis (waveforms) and color performed Both legs are examined. Findings: Deep venous systems do not demonstrate abnormal echogenicity. All visualized deep veins exhibit compressibility. All visualized deep veins exhibit augmentation. Impression: Negative for deep vein thrombosis
--- NOTE | 2024-05-24 21:02 | ESCONSULT_ITS ---
RE: NELDA LEON : 1960 DATE OF CONSULTATION: 05/24/2024 CONSULTING PHYSICIANS: Agriculture Laboratory Technician and Dr. Degroot and also Dr. Seng Oakes, Dr. Eleazar Perdomo and PGY-2. CHIEF COMPLAINT: Shortness of breath. HISTORY: The patient is a 64-year-old male with a past medical history of HFrEF, nonischemic cardiomyopathy with chronic methamphetamine abuse for several years, chronic left ventricle apical mural thrombus, ejection fraction of 15%, dilated cardiomyopathy, multiple hospitalizations frequently with various admissions with acute heart failure, osteomyelitis of the foot, hypertension, also has long-standing noncompliance because of homelessness. Recently discharged home after hospitalization on 05/06. Came back to the hospital once again with chief complaint of abdominal pain, cough and difficulty breathing for 3 days. The patient apparently is not following with the clinic. They were supposed to have an appointment. Not sure whether he is taking medications. In the emergency room on the day of admission, the patient was found to be afebrile but tachypneic, saturation 90% on room air. Placed on nasal cannula and subsequently, chest x-ray showed extensive pulmonary congestion and pneumonia. Developed acute hypoxic respiratory failure. He became very agitated and in acute distress, required intubation, placed on mechanical ventilation this morning. Cardiology consultation recommended because of elevated troponin levels. The patient is sedated, on ventilator now. Could not get any further history from him, but the patient is a chronic meth user who is here almost every month. Continues to be positive for various drugs including positive for fentanyl this admission, but the patient is an active meth user. Even on 05/21, he was positive for methamphetamine and active user every admission. His lab data this time shows the troponin level is elevated. It was 0.46, went up to 2.34. The EKG showed evidence of normal sinus rhythm, sinus tachycardia, possibly has poor RV progression in pericardial leads, nonspecific T wave change in precordial leads, small Q-wave in inferior leads. Compared to EKGs in April, there is absolutely no significant change whatsoever, no new changes. Chest x-ray reported as showing extensive evidence of congestive heart failure, pneumonia and a CT scan of the chest was also performed that is reportedly showing evidence of aneurysmal dilation with ascending aorta slightly dilated at 4.2 cm, negative for pulmonary emboli, cardiomegaly, bilateral pneumonia, mostly in the lung bases, cavitary parenchymal lesion right lower lobe as well. There was also hepatocellular disease, cholelithiasis and mild ascites reported on the chest CT. PAST MEDICAL HISTORY: Chronic methamphetamine use, chronic systolic heart failure, HFrEF, ejection fraction of 15%. Last echo in 01/2024 showed ejection fraction of around 15% to 20% and there was a large thrombus 1.5 x 1.8 cm, which was present for several months and also decreased RV function and evidence of mild to moderate mitral regurgitation, moderate aortic regurgitation as well as mildly dilated aorta, tricuspid and pulmonary regurgitation. MEDICATIONS: List includes: 1. Apixaban 5 b.i.d., possibly noncompliant. 2. Aspirin 81 daily. 3. Bumetanide 2 mg daily. 4. Metoprolol succinate 25 daily. SOCIAL HISTORY: The patient's homelessness and multiple polysubstance abuse, chronic methamphetamine abuse. PHYSICAL EXAMINATION: GENERAL: An acutely ill, critically ill male who is intubated and sedated on mechanical ventilation. VITAL SIGNS: His blood pressure is stable at 105/70, pulse 75, respirations on ventilator. Saturation 99% on ventilator. HEENT: Head is atraumatic. NECK: Supple. Mild JVD is present. CHEST: Symmetrical. LUNGS: Bilateral crackles. HEART: S1, S2 regular. Tachycardia. ABDOMEN: Thin and soft. EXTREMITIES: Two plus edema of both feet. GENITOURINARY AND RECTAL: Not performed. CENTRAL NERVOUS SYSTEM: The patient is on mechanical ventilation, heavily sedated. Detailed exam not performed. LABORATORY DATA: Initial admission, white count was now 11.8, hematocrit is 33. Chemistry panel showed creatinine is 1.7, BUN 29. Lactic acid 5.0 initially, has come down to 1.6. Glucose 130, potassium 4.9, sodium 129. Troponin yesterday architect naval was 0.46, this afternoon at 3 p.m., 2.3 and definite uptrend. IMPRESSION/ASSESSMENT: 1. Acute hypoxic respiratory failure secondary to congestive heart failure and pneumonia. 2. Nonischemic cardiomyopathy, chronic systolic heart failure with acute decompensation, ejection fraction 15%. 3. Left ventricular mural thrombus. 4. Troponin elevation, type 2 troponin due to methamphetamine use, toxic as well as demand due to heart failure decompensation. 5. Pneumonia. RECOMMENDATIONS: I agree with medical management, IV antibiotics and ventilator support for now. I do not think the patient has acute myocardial infarction secondary to CAD, hence no need for anticoagulation at all. The patient will be managed as type 2 troponin elevation rather than acute myocardial infarction at this time. The patient does have a history of mural thrombus, continue anticoagulation for now. We will probably repeat a cardiac echo since it has been nearly 4-5 months since last echocardiogram examination. I would like to thank for referring this patient for cardiovascular evaluation. I would be glad to follow the patient with you. DT: 19:52:04 TT: 20:34:00 Ref: [id number] - TID: [id number]
[2024-05-24] MEDS: Magnesium Sulfate 2 GM Ivpb 2 GM/50 ML BAG IV (21:17)
[2024-05-24] MEDS: ATORVASTATIN CALCIUM 20 MG TABLET 40 MG PO (21:18)
[2024-05-24] MEDS: fentaNYL 2,500 MCG/250 ML BAG 2,500 MCG/250 ML BAG 17.5 MCG IV (21:40)
--- NOTE | 2024-05-24 22:53 | EVENTNT_ITS ---
Documentation for date of: 05/24/24 Event Note Event Note: Around 22:30 p.m. I received a call from ICU nurse regarding patient blood pressure 91/50 MAP 61, bradycardic to the low 40s we try to come down on propofol based on myocardial depressant to improve cardiac output otherwise jimenez ent did not tolerate and start waking up for which dobutamine gtt. was started for cardiogenic shock. Patient discussed with my attending Dr Leo Campbell MD PGY-3 Disclaimer: Despite multiple revisions, due to the dictation software being used, the document bellow may not be free of grammatical errors including phonetic/typographic errors. However, this does not deter from our commitment to providing health care in the patient's best interest in mind.
[2024-05-24] MEDS: DOBUTamine/D5w 500 MG IVPB 500 MG/250 ML BAG IV (22:55)
[2024-05-25] VITALS (76 sets, daily range): BP systolic 43–150; BP diastolic 28–111; PULSE 43–112; RESP 4–28; TEMP 36.2–37.2; O2SAT 85–100; BMI 25.7
[2024-05-25] MEDS: PIPER/TAZO 3.375 GM 50 ML IV ×3 (00:30→17:09)
[2024-05-25 00:41] LABS: Troponin I 2.399 ng/mL (0.0-0.045)
[2024-05-25 04:32] LABS: Base Excess -4 (-3-3); HCO3 22 mEq/L (20-26); Inspired Oxygen, FIO2 35 %; O2 Saturation 100 % (91-98); PCO2 41 mmHg (32.0-48.0); PO2 137 mmHg (83-108); pH, Arterial 7.34 (7.35-7.45)
[2024-05-25 04:34] LABS: Allen Test Not Performed; Puncture Site Arterial Line
--- NOTE | 2024-05-25 05:00 | XR_ITS ---
Examination: AP chest single view TECHNIQUE: AP portable semiupright chest single view Exam date and time: May 25, 2024 0543 hours Comparison May 23, 2024 INDICATIONS: Hypoxic respiratory failure postintubation today FINDINGS: Mild CHF Enlarged cardiac contour with prominent vascular congestion and septal edema in the lower lung zone on the right Pneumonia left base with air bronchograms in left pleural fluid Orogastric tube is in the stomach the tip is below the level of the film IMPRESSION: Mild heart failure Significant pneumonia left base Tracheal tube tip 3.7 cm above suze
[2024-05-25] MEDS: FUROSEMIDE INJ 10 MG/ML 4ML VIAL 40 MG IVP ×2 (05:49→17:09)
[2024-05-25 06:21] LABS: Basophils % (Auto) 0 % (0-2.5); Eosinophils % (Auto) 0 % (0-10); Hematocrit 35.8 % (41.0-53.0); Hemoglobin 11.6 g/dL (13.5-16.0); Immature Granulocytes % (Auto) 0 % (0-0); Immature Granulocytes Auto 0.03 Thou/mm3 (0.00-0.00); Lymphocytes # (Auto) 0.5 Thou/mm3 (1.0-4.8); Lymphocytes % (Auto) 4 % (10-50); Mean Corpuscular HGB Conc 32.4 g/dl (31.0-37.0); Mean Corpuscular Hemoglobin 28.2 pg (25.0-35.0); Mean Corpuscular Volume 87 fL (80-100); Monocytes % (Auto) 8 % (0-12); Neutrophils # (Auto) 11.3 Thou/mm3 (1.8-7.7); Neutrophils % (Auto) 88 % (37-80); Nucleated Red Blood Cell % 0 /100 WBC (0); Platelet Count 153 Thou/mm3 (140-440); RDW Standard Deviation 57.6 fL (35.1-43.9); Red Blood Count 4.11 Miln/mm3 (4.50-5.90); White Blood Count 12.9 Thou/mm3 (3.8-10.6)
[2024-05-25 06:52] LABS: Anion Gap 10 (7-16); BUN/Creatinine Ratio 18 Ratio (12-20); Blood Urea Nitrogen 32 mg/dL (9-23); Calcium 7.8 mg/dL (8.3-10.6); Carbon Dioxide 22.2 mMol/L (20.0-31.0); Chloride 103 mMol/L (98-107); Creatinine (Component) 1.8 mg/dL (0.6-1.3); Glucose 113 mg/dL (74-106); Magnesium 2.1 mg/dL (1.6-2.6); Osmolality,Calculated 278 (275-295); Phosphorous 5.6 mg/dL (2.4-5.1); Potassium 4.2 mMol/L (3.4-5.1); Sodium 135 mMol/L (136-145); eGFR 42 See Note
[2024-05-25] MEDS: PROPOFOL 1,000 MG IVPB 1,000 MG/100 ML VIAL 7.756 MG IV (07:02)
[2024-05-25] MEDS: ASPIRIN 81 MG CHEW PO (08:39)
[2024-05-25] MEDS: ENOXAPARIN SOD INJ 40 MG/0.4 ML SYRINGE SC (08:39)
[2024-05-25] MEDS: FAMOTIDINE INJ 10 MG/ML VIAL 2 ML 20 MG IVP (08:39)
[2024-05-25] MEDS: VANCOMYCIN/NS 750 MG IVPB 750 MG/150 ML BAG 150 MG IV (10:09)
--- NOTE | 2024-05-25 11:24 | ESPR_ITS ---
Documentation for date of: 05/25/24 Subjective Subjective Interval history: 64-year-old male with a past medical history of HFrEF with ejection fraction of 15 to 20%, chronic left ventricular thrombus, methamphetamine abuse, dilated cardiomyopathy secondary to meth use, history of hep C, chronic left foot osteomyelitis, hypertension, hyperlipidemia, medical noncompliance and homelessness who presented to the ED on 05/23/2024 with complaints of abdominal pain, cough and difficulty breathing and started about 3 days ago. He states that his abdominal pain is only present when he coughs or present for a long time. Patient presented to the ED yesterday for similar symptoms but left AMA. He reports that he has not been consistent with follow-up in [facility] with patient office rep as it is difficult for him to make these appointments, he has also not picked up any of his medications and so has been without medications since his last discharge 3 weeks ago when he was admitted for management of acute hypoxic respiratory failure with acute decompensated heart disease. Patient was admitted to the floors for acute close respiratory failure secondary to acute decompensated heart failure. Before being transported to floors, patient developed acute worsening hypoxic respiratory failure requiring intubation. ICU was consulted for management of intubated patient. Patient remained severely hypoxic, O2 saturation as low as 50%, when ventilated requiring manual bag-pump oxygen delivery. Patient was given tenecteplase for possible pulmonary embolism. Chest imaging showed CHF with vascular congestion, bibasilar pneumonia. Patient received Lasix with increasing urinary output, initiated on antibiotics. Patient troponins trending up, EKG ordered, did not show STEMI. Ventilator was attempted again, patient tolerated well, maintaining saturations on ventilator. 05/25/2024: Patient seen and examined at bedside. Sedated and intubated. Patient had bradycardia (HR 40-50) with hypotension (MAP 61) overnight, was started on dobutamine with improvement. Coarse lung sounds, improved from yesterday. Patient producing good urine, 4.3 L output. Final blood and sputum cultures pending. Improved oxygenation, tolerating decreased PEEP and FiO2 well. Troponins peaked at 2.399. Dobutamine titrated down and removed. Patient remains bradycardiac, hemodynamically stable. ABG improved: pH 7.34, pCO2 41, pO2 137. Work towards extubation today while treating CHF and PNA. Exam Vital Signs Temp Pulse Resp BP Pulse Ox O2 Del Method O2 Flow Rate 98.9 F 77 23 H 107/63 95 Mechanical Ventilation 15 05/25/24 08:00 05/25/24 11:16 05/24/24 13:30 05/25/24 11:16 05/25/24 11:16 05/25/24 11:00 05/24/24 06:25 FiO2 30 05/25/24 11:16 Narrative Exam PE: Gen: Well-developed and well-nourished. Ill-appearing. HEENT: Atraumatic. Pinpoint pupils, bloodshot eyes, dry mucous membranes. CVS: normal S1 and S2. RRR. No M/R/G. Resp: Coarse lung sounds. No crackles or wheezes. Abd: soft, non-tender, non-distended. Firmness in RUQ. MSK: Good ROM in BUE & BLE. 2+ pitting edema BLE. Erosion of skin at base of penis. Neuro: CN II-XII grossly intact. Sedated and intubated. Objective Labs 05/25/24 05:24 05/25/24 05:24 Labs: Laboratory Results - last 24 hr 05/24/24 05/24/24 05/24/24 12:38 13:55 15:15 WBC RBC Hgb Hct MCV MCH MCHC RDW Std Deviation Plt Count Neut % (Auto) Lymph % (Auto) [place] % (Auto) Eos % (Auto) Baso % (Auto) Neut # (Auto) Lymph # (Auto) [place] # (Auto) Eos # (Auto) Baso # (Auto) Immature Gran # (Auto) Absolute Nucleated RBC Immature Gran % Nucleated RBC % Puncture Site Right Radial ABG pH 7.29 L ABG pCO2 46 D ABG pO2 87 D ABG HCO3 22 ABG O2 Saturation 96 ABG Base Excess -5 L FiO2 40 Sodium Potassium Chloride Carbon Dioxide Anion Gap BUN Creatinine Estim Creat Clear Calc eGFR BUN/Creatinine Ratio Glucose Calculated Osmolality Lactic Acid 1.6 Calcium Phosphorus Magnesium Troponin I 2.341 H* D 05/24/24 05/25/24 05/25/24 22:54 04:23 05:24 WBC 12.9 H RBC 4.11 L Hgb 11.6 L Hct 35.8 L MCV 87 MCH 28.2 MCHC 32.4 RDW Std Deviation 57.6 H Plt Count 153 D Neut % (Auto) 88 H Lymph % (Auto) 4 L [place] % (Auto) 8 Eos % (Auto) 0 Baso % (Auto) 0 Neut # (Auto) 11.3 H Lymph # (Auto) 0.5 L [place] # (Auto) 1.0 H Eos # (Auto) 0.0 Baso # (Auto) 0.0 Immature Gran # (Auto) 0.03 H Absolute Nucleated RBC 0.00 Immature Gran % 0 Nucleated RBC % 0 Puncture Site Arterial Line ABG pH 7.34 L ABG pCO2 41 ABG pO2 137 H D ABG HCO3 22 ABG O2 Saturation 100 H ABG Base Excess -4 L FiO2 35 Sodium 135 L Potassium 4.2 D Chloride 103 Carbon Dioxide 22.2 Anion Gap 10 BUN 32 H Creatinine 1.8 H Estim Creat Clear Calc 42.0 L eGFR 42 L BUN/Creatinine Ratio 18 Glucose 113 H Calculated Osmolality 278 Lactic Acid Calcium 7.8 L Phosphorus 5.6 H Magnesium 2.1 Troponin I 2.399 H* ABG Interpretation ABG results: 05/24/24 05/24/24 05/25/24 09:09 13:55 04:23 ABG pH 7.29 L 7.29 L 7.34 L ABG pCO2 29 L 46 D 41 ABG pO2 329 H 87 D 137 H D ABG HCO3 14 L 22 22 ABG O2 Saturation 101 H 96 100 H ABG Base Excess -11 L -5 L -4 L Quality Measures Quality Measures VTE prophylaxis Assessment & Plan Assessment Current Active Medications: Generic Name Dose Route Start Last Admin Trade Name Freq PRN Reason Stop Dose Admin Acetaminophen 650 mg 05/24/24 05:09 Acetaminophen 325 Mg Tablet PO 06/23/24 05:08 Q6H PRN Fever >101.5 Acetaminophen 650 mg 05/24/24 09:08 Acetaminophen 325 Mg Tablet PO 06/23/24 09:07 Q4HR PRN PAIN SCALE 1-3 (mild Acetaminophen 650 mg 05/24/24 09:08 Acetaminophen Supp 650 Mg Supp [place] 06/23/24 09:07 Q4HR PRN PAIN SCALE 1-3 (mild Al Hydrox/Mg Hydrox/Simethicone 30 ml 05/24/24 09:08 Mg Hyd/Al Hyd/Marsha (Maalox Reg) Susp 30 Ml Udc PO 06/23/24 09:07 Q4HR PRN Heartburn or Upset Stomach Aspirin 81 mg 05/25/24 09:00 05/25/24 08:39 Aspirin 81 Mg Chew PO 06/24/24 08:59 81 mg QDAY JANETTE Administration Atorvastatin Calcium 40 mg 05/24/24 21:00 05/24/24 21:18 Atorvastatin Calcium 20 Mg Tablet PO 06/23/24 20:59 40 mg HS JANETTE Administration Enoxaparin Sodium 40 mg 05/25/24 09:00 05/25/24 08:39 Enoxaparin Sod Inj 40 Mg/0.4 Ml Syringe SC 06/08/24 08:59 40 mg QDAY JANETTE Administration Famotidine 20 mg 05/25/24 09:00 05/25/24 08:39 Famotidine Inj 10 Mg/Ml Vial 2 Ml IVP 06/24/24 08:59 20 mg QDAY JANETTE Administration Furosemide 40 mg 05/24/24 06:45 05/25/24 05:49 Furosemide Inj 10 Mg/Ml 4ml Vial IVP 06/23/24 06:44 40 mg BIDD JANETTE Administration Propofol 1,000 mg in 100 mls @ 2.585 mls/hr 05/24/24 07:01 05/25/24 11:00 Diprivan Ivpb IV 06/23/24 07:00 0 mcg/kg/min .Q24H PRN 0 mls/hr PER PROTOCOL Titration Protocol 5 MCG/KG/MIN Fentanyl Citrate 2,500 mcg in 250 mls @ 2.5 mls/hr 05/24/24 07:02 05/25/24 11:00 Sublimaze Inj 2,500 Mcg/250 Ml Bag IV 05/29/24 07:01 50 mcg/hr .Q24H PRN 5 mls/hr PER PROTOCOL Titration Protocol 25 MCG/HR Piperacillin/Tazobactam/Dextrose 50 mls @ 12.5 mls/hr 05/24/24 16:00 05/25/24 08:39 Zosyn IV 05/31/24 15:59 12.5 mls/hr Q8H JANETTE Administration Dobutamine HCl/Dextrose 500 mg in 250 mls @ 2.585 mls/hr 05/24/24 22:46 05/25/24 09:33 Dobutrex/D5w Ivpb IV 06/23/24 22:45 0 mcg/kg/min .Q24H PRN 0 mls/hr PER PROTOCOL Titration Protocol 1 MCG/KG/MIN Vancomycin/Sodium Chloride 750 mg in 150 mls @ 150 mls/hr 05/25/24 10:00 05/25/24 10:09 Vancomycin/Ns 750 Mg Ivpb IV 06/01/24 09:59 150 mls/hr Q24H JANETTE Administration Magnesium Hydroxide 30 ml 05/24/24 09:08 Milk Of Magnesia Susp 30 Ml Udc PO 06/23/24 09:07 QDAY PRN CONSTIPATION Metoprolol Succinate 25 mg 05/24/24 09:00 05/24/24 09:57 Metoprolol Succinate Xl 25 Mg Tabcr PO 06/23/24 08:59 Not Given QDAY JANETTE Nitroglycerin 0.4 mg 05/24/24 09:08 Nitroglycerin 0.4 Mg Subl Btl #25 SL Q5MIN PRN CHEST PAIN Pharmacy Consult 1 each 05/24/24 12:15 05/25/24 08:29 Vancomycin Pharmacy To Dose 1 Each Each IV 06/23/24 12:14 Not Given QDAY JANETTE Plan 64-year-old male with a past medical history of HFrEF with ejection fraction of 15 to 20%, chronic left ventricular thrombus, methamphetamine abuse, 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 Neuro: #Sedated and intubated Patient was sedated and intubated due to acute hypoxic respiratory failure. -Treat underlying conditions -Wean off sedation, possible extubation today Cardio: #HFrEF, dilated cardiomyopathy Patient patient has history of dilated cardiomyopathy and HFrEF with ejection fraction 15-20% as of 01/21/2024 due to meth abuse. Patient has poor compliance to medications due to homelessness, has expressed difficulty keeping track of his medications. Patient is currently volume overloaded with clear signs of significant vascular congestion on chest imaging, bilateral lower extremity pitting edema. Patient received 40 and 60 mg IV Lasix with increasing urinary output. Bedside echo appears to show improved cardiac function compared to yesterday. -Echo pending -Lasix 40 mg IV twice daily -Strict I's and O's #Troponinemia DDx: NSTEMI type I versus type II Patient's troponins are elevated, trending up, most recent 2.34. EKG was ordered which did not show significant ST changes. NSTEMI versus demand ischemia. Patient has history of cardiac disease and medical noncompliance. Patient did not endorse chest pain prior to intubation, currently unable to information about symptoms. Troponin peaked at 2.399. Cardio consult reccomends medical management, suspect NSTEMI Type II. -Cardio consulted, appreciate recs -Echo pending, follow-up -Atorvastatin 40 mg OG at bedtime -Aspirin 81 mg OG daily -Metoprolol held due to sinus bradycardia #Sinus bradycardia DDx: Sick sinus syndrome versus metoprolol use Patient is bradycardic, heart rate in the 50s. Saint intubated, unable to provide information about symptoms. Patient appears well-perfused on clinical exam. Overnight patient heart rate decreased (40-50) with MAP 61, patient started on dobutamine with improvement. Dobutamine weaned off, patient bradycardic but hemodynamically stable. -Telemonitoring -Treat underlying conditions -Hold metoprolol Pulm: #Acute hypoxic respiratory failure DDx: Multifactorial: CHF exacerbation plus bilateral pneumonia (aspiration versus community-acquired) Patient presented with shortness of breath for several days. Patient history of heart failure reduced ejection fraction, medical noncompliance. Has been unable to receive medications for approximately 3 weeks per chart review. Chest imaging indicated significant vascular congestion and bibasilar pneumonia, along with cavitary disease in the right lung. In the ED patient decompensated requiring intubation. Patient initially had difficulty saturating on vent requiring manual bagging, eventually saturations stabilized and was able to be ventilated. Once on the floors when signs able to titrate down to 40% FiO2. -Echo pending -Broad-spectrum antibiotics -Diuretics -Ventilated, maintain O2 saturations, titrate down -possible extubation today GI: #Transaminitis Suspect due to acute illness. LFTs elevated, trending down. No signs of RUQ tenderness, liver is firm to palpation. -Monitor Renal: #GEOVANY Most likely due to volume overload. Patient is not severely volume overloaded state, vascular congestion on chest imaging, 3+ bilateral lower extremity pitting edema. Patient producing adequate urine. -Monitor urine output -Avoid nephrotoxic medications -Diuresis -Daily labs #Hyponatremia Mild, asymptomatic. Improving. -Monitor Endo: #No active issues Heme: #Normocytic anemia DDx: Hemolysis due to infection versus early MANSOOR versus blood loss (less likely) Patient is anemic with hemoglobin downtrending, to 12.8. Patient is adequately perfused, downtrend has been slow, no signs of hemorrhage. Patient is severely ill, CHF exacerbation and pneumonia. -Monitor #Leukocytosis Patient has pneumonia seen on chest imaging. Possible component of reaction to acute illness. -Treat underlying condition -Monitor ID: #Pneumonia DDx: Aspiration versus community-acquired Patient has bibasilar pneumonia seen on CT chest imaging. Patient has leukocytosis, is afebrile. Developed acute hypoxic respiratory failure requiring intubation and ventilation. -Vancomycin pharmacy dosing IV (started 05/24) -Zosyn 3.375 mg IV every 8 hours (started 05/24) -MRSA screen pending -Blood cultures no growth x24 hours -Sputum cultures pending Skin/MSK: #Skin erosion Erosion of skin at base of penis, unclear cause -skin repair cream ICU Health maintenance: Mechanical ventilation: Yes Sedation: Propofol and fentanyl Diet: N.p.o. DVT ppx: Lovenox GI ppx: Pepcid Ragland: Yes IV lines: 3 peripheral Central line: No Arterial line: Yes Code status: Full code Plan of care discussed with attending Dr. Degroot. Seng Oakes MD PGY-1
[2024-05-25 11:25] LABS: Troponin I 1.429 ng/mL (0.0-0.045)
--- NOTE | 2024-05-25 11:41 | PC.SS ---
SENIOR MATERIALS PLANNER conducted phone contact with the patient?s sister, Svetlana Mena ; to conduct initial assessment. Patient is currently admitted to ICU mechanically ventilated. Patient?s sister confirmed that patient possesses a history of homelessness and drug abuse. Per patient?s sister, patient not utilizing DME to assist with ambulation. Patient does not utilize oxygen. Prior to admission, patient able to complete ADL?s independently. Patient?s medical surrogate decision maker is sister, Svetlana Mena. Patient is not aligned with PCP services, although chart review indicates that the patient has been referred to the [facility]. management services technician will discuss discharge needs at an appropriate future time. No further intervention required at this time, social worker aide will be available to address any further concerns. Next of Kin: Svetlana Mena D/C Plan: Pending
--- NOTE | 2024-05-25 12:08 | ESPR_ITS ---
Documentation for date of: 05/25/24 Subjective Subjective Interval history: This is a 64yo M admitted to the ICU for acute hypoxic resp failure. pt was seen in ER room 5. Apparently he presented to the ER for SOB and has a h/o CHF . He was originally admitted to tele however had an abrupt decompensation this morning requiring intubation. After he was intubated his sats dropped to the 40s and he required manual bagging for over 2hrs. ICU was called immediately after intubation and was present throughout his entire stay in the ER. During this time his sats rarely improved to >85%. Given his presentation and his LE edema it was felt that a massive PE was within the differential and therefore a dose of tPA 45mg was given. He was sent for a CTA after 30min which did not show any evidence of PE. A bedside echo was performed in the ER by myself which showed a barely mobile LV with perhaps an EF of 5-10%. ICU residents assisted the RTs with manually bagging the pt the entire ER stay. After ~2hrs his sats stabilized and he was reconnected to the vent. After arrival to the ICU his FiO2 was rapidly weened down to 40%. On CXR there is some vasc congestion with infiltrate however not sufficient to explain pts profound hypoxia. CTA showed b/l pna and some cavitary dz in RLL. Pt does have a h/o cardiomyopathy 2/2 meth use. pt is homeless and has a h/o non compliance. 05/25 -overnight became bradycardic and hypotensive, started on dobutamine drip, good urinary output, improvement on ventilator Critical Care Note Critical care time (min.): 40 Exam Vital Signs Temp Pulse Resp BP Pulse Ox O2 Del Method O2 Flow Rate 98.9 F 77 23 H 107/63 95 Mechanical Ventilation 15 05/25/24 08:00 05/25/24 11:16 05/24/24 13:30 05/25/24 11:16 05/25/24 11:16 05/25/24 11:00 05/24/24 06:25 FiO2 30 05/25/24 11:16 Narrative Exam General-no acute distress, sedated, normal body habitus HEENT-normocephalic, atraumatic, sclera icteric, mucosa is hydrated, ET tube and OG tube in place Chest-coarse central breath sounds, no active wheezing, heart regular rhythmic, no bruits, no increased work of breathing Abdomen-soft, nontender, bowel sounds present, no rebound or guarding Extremities-3+ pitting edema bilateral lower extremities to the level of the knees, pulses palpable, mottling and cyanosis from yesterday have resolved today, moves extremities Physical Exam Completion Physical Exam Complete?: Yes 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 Labs 05/26/24 05:07 05/26/24 05:07 Labs: Laboratory Results - last 24 hr 05/24/24 05/24/24 05/24/24 12:38 13:55 15:15 WBC RBC Hgb Hct MCV MCH MCHC RDW Std Deviation Plt Count Neut % (Auto) Lymph % (Auto) [place] % (Auto) Eos % (Auto) Baso % (Auto) Neut # (Auto) Lymph # (Auto) [place] # (Auto) Eos # (Auto) Baso # (Auto) Immature Gran # (Auto) Absolute Nucleated RBC Immature Gran % Nucleated RBC % Puncture Site Right Radial ABG pH 7.29 L ABG pCO2 46 D ABG pO2 87 D ABG HCO3 22 ABG O2 Saturation 96 ABG Base Excess -5 L FiO2 40 Sodium Potassium Chloride Carbon Dioxide Anion Gap BUN Creatinine Estim Creat Clear Calc eGFR BUN/Creatinine Ratio Glucose Calculated Osmolality Lactic Acid 1.6 Calcium Phosphorus Magnesium Troponin I 2.341 H* D 05/24/24 05/25/24 05/25/24 22:54 04:23 05:24 WBC 12.9 H RBC 4.11 L Hgb 11.6 L Hct 35.8 L MCV 87 MCH 28.2 MCHC 32.4 RDW Std Deviation 57.6 H Plt Count 153 D Neut % (Auto) 88 H Lymph % (Auto) 4 L [place] % (Auto) 8 Eos % (Auto) 0 Baso % (Auto) 0 Neut # (Auto) 11.3 H Lymph # (Auto) 0.5 L [place] # (Auto) 1.0 H Eos # (Auto) 0.0 Baso # (Auto) 0.0 Immature Gran # (Auto) 0.03 H Absolute Nucleated RBC 0.00 Immature Gran % 0 Nucleated RBC % 0 Puncture Site Arterial Line ABG pH 7.34 L ABG pCO2 41 ABG pO2 137 H D ABG HCO3 22 ABG O2 Saturation 100 H ABG Base Excess -4 L FiO2 35 Sodium 135 L Potassium 4.2 D Chloride 103 Carbon Dioxide 22.2 Anion Gap 10 BUN 32 H Creatinine 1.8 H Estim Creat Clear Calc 42.0 L eGFR 42 L BUN/Creatinine Ratio 18 Glucose 113 H Calculated Osmolality 278 Lactic Acid Calcium 7.8 L Phosphorus 5.6 H Magnesium 2.1 Troponin I 2.399 H* 05/25/24 10:10 WBC RBC Hgb Hct MCV MCH MCHC RDW Std Deviation Plt Count Neut % (Auto) Lymph % (Auto) [place] % (Auto) Eos % (Auto) Baso % (Auto) Neut # (Auto) Lymph # (Auto) [place] # (Auto) Eos # (Auto) Baso # (Auto) Immature Gran # (Auto) Absolute Nucleated RBC Immature Gran % Nucleated RBC % Puncture Site ABG pH ABG pCO2 ABG pO2 ABG HCO3 ABG O2 Saturation ABG Base Excess FiO2 Sodium Potassium Chloride Carbon Dioxide Anion Gap BUN Creatinine Estim Creat Clear Calc eGFR BUN/Creatinine Ratio Glucose Calculated Osmolality Lactic Acid Calcium Phosphorus Magnesium Troponin I 1.429 H* D Assessment & Plan Additional Assessment Additional Assessment: In summary this is a 64yo M admitted with 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 myocardial stunning v ongoing decline in EF CT shows pulmonary edema, will diures as able -Today bedside echo shows significant improvement from yesterday with an EF back up to perhaps 20% -Patient has been on dobutamine overnight -Good urinary output on Lasix -Formal echo obtained and read pending -No thrombus noted in LV at this time Tropinemia- ? demand ischemia, check EKG, on ASA, -Now trending back down -Peaked out at 2.3 -Likely related to demand ischemia -Follow-up with cardiology Resp Acute hypoxic resp failure- follow-up on ABG and chest x-ray -Today FiO2 down to 30% -Will attempt sedation vacation and spontaneous breathing trial Aspiration PNA-on antibiotics, follow-up on cultures -Doing well Renal HypoNa-hypervolemic hyponatremia, patient requires diuresis - improved GEOVANY-monitor I's and O's, avoid nephrotoxins, follow-up with urinary output, likely related to patient's instability on arrival. -Slight tick up from yesterday -Good urinary output Lactic Acidosis-likely related to his profound hypoxia GI Transaminitis- ? 2/2 congestive hepatopathy, continue to follow GI prophylaxis-PPI Endo stable Heme Leukocytosis-reactive versus related to pneumonia Anemia-mild monitor DVT proph-Lovenox 40 Lower extremity edema-venous Dopplers negative for DVT ID Aspiration PNA- on abx case d/w ICU team labs, imaging, records reviewed ~40ccmin required for eval, exam, review, intervention, discussion and formulation of POC for this critically ill pt with heart failure and respiratory failure at high risk for further and ongoing decompensation Provider Notation Provider Notation: Although this document has been carefully reviewed, there may still be some phonetic and other typographical errors. These errors are purely grammatical due to imperfections in the software program and should not be construed in any way to compromise the substance of the patient's medical care during this visit. Thank you for the opportunity and privilege in assisting you with this patient's care and management.
--- NOTE | 2024-05-25 15:50 | EVENTNT_ITS ---
Documentation for date of: 05/25/24 Event Note Event Note: Discussed with ICU team about patient, frequent flyer, who is coming in for acute hypoxic respiratory failure secondary to CHF exacerbation and pneumonia. Intubated in the ICU extubated today, is improving, primary team will resume care starting tomorrow. Patient seen and care discussed with my senior resident, Dr. Su, and my attending physician, Dr. Jose G Duron, PGY-1 Attending attestation: 63-year-old male with methamphetamine use disorder with subsequent dilated cardiomyopathy with heart failure with reduced EF with EF 15-20% and left ventricular thrombus, hep C, hypertension, hyperlipidemia who presented to the ER on 05/23/2024 with cough and shortness of breath found to have acute hypoxic respiratory failure secondary to acute decompensated CHF exacerbation and pneumonia. On 05/24/2024, patient noted to have increasing work of breathing and subsequently intubated and taken to the ICU. Furthermore, patient noted to have worsening hypoxia on the plan and hypotension and initially thought it monster ht be saddle PE and subsequently patient was given tenecteplase. Furthermore, patient started on dobutamine for cardiogenic shock and further workup including CTA with no evidence of PE however did have cavitary lesion. On 05/25/2024 patient was subsequently extubated and downgraded to MedSur. I reviewed above note and agree with findings and plans. I have also personally examined the patient with medicine team and went over assessment and plan with medical team including application support intern and resident physician.
[2024-05-25 18:41] LABS: Potassium 4.4 mMol/L (3.4-5.1)
[2024-05-25] MEDS: ATORVASTATIN CALCIUM 20 MG TABLET 40 MG PO (20:40)
[2024-05-26] VITALS (12 sets, daily range): BP systolic 109–125; BP diastolic 80–92; PULSE 59–116; RESP 16–24; TEMP 36.1–36.6; O2SAT 93–100
[2024-05-26 05:49] LABS: Basophils % (Auto) 0 % (0-2.5); Eosinophils % (Auto) 0 % (0-10); Hematocrit 37.7 % (41.0-53.0); Hemoglobin 11.9 g/dL (13.5-16.0); Immature Granulocytes % (Auto) 0 % (0-0); Immature Granulocytes Auto 0.05 Thou/mm3 (0.00-0.00); Lymphocytes # (Auto) 0.5 Thou/mm3 (1.0-4.8); Lymphocytes % (Auto) 4 % (10-50); Mean Corpuscular HGB Conc 31.6 g/dl (31.0-37.0); Mean Corpuscular Hemoglobin 27.9 pg (25.0-35.0); Mean Corpuscular Volume 89 fL (80-100); Monocytes # (Auto) 0.9 Thou/mm3 (0.0-0.8); Monocytes % (Auto) 7 % (0-12); Neutrophils % (Auto) 88 % (37-80); Nucleated Red Blood Cell # 0.03 Thou/mm3 (0.00-0.00); Nucleated Red Blood Cell % 0 /100 WBC (0); Platelet Count 180 Thou/mm3 (140-440); RDW Standard Deviation 58.8 fL (35.1-43.9); Red Blood Count 4.26 Miln/mm3 (4.50-5.90); White Blood Count 12.5 Thou/mm3 (3.8-10.6)
[2024-05-26] MEDS: FUROSEMIDE INJ 10 MG/ML 4ML VIAL 40 MG IVP (05:57)
[2024-05-26 06:26] LABS: Anion Gap 11 (7-16); BUN/Creatinine Ratio 21 Ratio (12-20); Blood Urea Nitrogen 39 mg/dL (9-23); Calcium 8.1 mg/dL (8.3-10.6); Carbon Dioxide 28.3 mMol/L (20.0-31.0); Chloride 98 mMol/L (98-107); Creatinine (Component) 1.9 mg/dL (0.6-1.3); Estimated Creatinine Clearance 39.8 mL/min (>60); Glucose 82 mg/dL (74-106); Magnesium 1.9 mg/dL (1.6-2.6); Osmolality,Calculated 282 (275-295); Potassium 4.3 mMol/L (3.4-5.1); Sodium 137 mMol/L (136-145); eGFR 39 See Note
[2024-05-26] MEDS: PIPER/TAZO 3.375 GM 50 ML IV ×3 (09:56→18:44)
[2024-05-26] MEDS: ENOXAPARIN SOD INJ 40 MG/0.4 ML SYRINGE SC (09:56)
[2024-05-26] MEDS: Magnesium Sulfate 2 GM Ivpb 2 GM/50 ML BAG IV (09:56)
[2024-05-26] MEDS: FAMOTIDINE INJ 10 MG/ML VIAL 2 ML 20 MG IVP (09:57)
[2024-05-26] MEDS: ASPIRIN 81 MG CHEW PO (09:57)
[2024-05-26] MEDS: SPIRONOLACTONE 25 MG TABLET PO ×2 (10:44→21:12)
[2024-05-26] MEDS: DOXYCYCLINE 100 MG TABLET PO ×2 (10:44→21:11)
--- NOTE | 2024-05-26 13:05 | ESPR_ITS ---
RE: NELDA LEON : 1960 DATE OF SERVICE: 05/25/2024 SUBJECTIVE: The patient is a 64-year-old male with a history of nonischemic cardiomyopathy, mitral related cardiomyopathy, admitted to the hospital with hypoxi resp failure. He was successfully extubated. The patient is quite combative and appears to be comfortable, not having any chest pain or shortness of breath. Echocardiogram showed evidence of ejection fraction of 25%. There is no evidence of cardiac thromboemboli, completely resolved, which is a good sign. Congestive heart failure improved as well clinically. He is doing much better, not having any shortness of breath or chest pain. He wants to be released. OBJECTIVE: Vital Signs: Blood pressure 115/80, pulse 84 and regular, respiratory rate is 18, temperature normal. Neck: Supple. No JVD. . No bruits. Chest: Symmetrical. Lungs: Decreased breath sounds. No rales. Heart: S1 and S2, reg distant. Abdomen: Soft. Extremities: Mild edema. IMPRESSION: 1. Acute on chronic systolic heart failure. 2. 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 3. Troponin elevation type 2. 4. Cardiac thrombus completely resolved. RECOMMENDATIONS: 1. Since cardiac thrombus is completely resolved, no need for any anticoagulation at this time. 2. Treat with medical management. 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 DT: :: TT: 13:04:00 Ref: [id number] - TID: [id number] MTDD
--- NOTE | 2024-05-26 13:36 | ESPR_ITS ---
Documentation for date of: 05/26/24 Subjective Subjective Interval history: Patient seen today at the bedside found awake, alert, orientedx3. Overnight patient had episodes of nonsustained Vtach patient was asymptomatic. Vital signs at this time stable. Labs unremarkable. Lasix was switched to bumex 2 mg IV and added spironolactone as patients urinary output was not adequate. There is concern for worsening kidney function, vancomycin was switched to doxycycline. Patient has risk factors for TB such as living in homeless retirement, but no symptoms of hemptysis or weightloss, fevers or night sweats, low suspicions of TB but will consult ID. Exam Vital Signs Temp Pulse Resp BP Pulse Ox O2 Del Method O2 Flow Rate 97.9 F 78 21 H 121/86 H 100 Oxy Mask 7 05/26/24 12:00 05/26/24 12:00 05/26/24 12:00 05/26/24 12:00 05/26/24 12:00 05/26/24 12:00 05/26/24 12:00 FiO2 30 05/25/24 13:00 Narrative Exam Physical Exam GENERAL: NAD, NC/AT, responsive/cooperative. A&Ox3 HEENT: Moist mucosa. Eyes open, symmetrical, & clear CARDIO: No chest pain on palpation. Heart RRR, no obvious murmurs PULM: No noted coughing/dyspnea. Lungs crackles bilaterally GI: Abdomen soft, nondistended, no pain on palpation. 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 Ragland catheter SKIN/MSK/EXT: B/L LE edema +2, no pain on palpation. Pedal pulses present B/L NEURO: AAOX2, moves all 4 extremities Objective Labs 05/27/24 05:14 05/27/24 05:14 Labs: Laboratory Results - last 24 hr 05/25/24 05/26/24 05/26/24 18:15 05:07 09:44 WBC 12.5 H RBC 4.26 L Hgb 11.9 L Hct 37.7 L MCV 89 MCH 27.9 MCHC 31.6 RDW Std Deviation 58.8 H Plt Count 180 Neut % (Auto) 88 H Lymph % (Auto) 4 L [place] % (Auto) 7 Eos % (Auto) 0 Baso % (Auto) 0 Neut # (Auto) 11.0 H Lymph # (Auto) 0.5 L [place] # (Auto) 0.9 H Eos # (Auto) 0.0 Baso # (Auto) 0.0 Immature Gran # (Auto) 0.05 H Absolute Nucleated RBC 0.03 H Immature Gran % 0 Nucleated RBC % 0 Sodium 137 Potassium 4.4 4.3 Chloride 98 Carbon Dioxide 28.3 Anion Gap 11 BUN 39 H Creatinine 1.9 H Estim Creat Clear Calc 39.8 L eGFR 39 L BUN/Creatinine Ratio 21 H Glucose 82 Calculated Osmolality 282 Calcium 8.1 L Phosphorus 4.0 Magnesium 1.9 Random Vancomycin 15.0 ABG Interpretation ABG results: 05/24/24 05/24/24 05/25/24 09:09 13:55 04:23 ABG pH 7.29 L 7.29 L 7.34 L ABG pCO2 29 L 46 D 41 ABG pO2 329 H 87 D 137 H D ABG HCO3 14 L 22 22 ABG O2 Saturation 101 H 96 100 H ABG Base Excess -11 L -5 L -4 L Quality Measures Quality Measures VTE prophylaxis Assessment & Plan Assessment Current Active Medications: Generic Name Dose Route Start Last Admin Trade Name Freq PRN Reason Stop Dose Admin Acetaminophen 650 mg 05/24/24 05:09 Acetaminophen 325 Mg Tablet PO 06/23/24 05:08 Q6H PRN Fever >101.5 Acetaminophen 650 mg 05/24/24 09:08 Acetaminophen 325 Mg Tablet PO 06/23/24 09:07 Q4HR PRN PAIN SCALE 1-3 (mild Acetaminophen 650 mg 05/24/24 09:08 Acetaminophen Supp 650 Mg Supp OK 06/23/24 09:07 Q4HR PRN PAIN SCALE 1-3 (mild Al Hydrox/Mg Hydrox/Simethicone 30 ml 05/24/24 09:08 Mg Hyd/Al Hyd/Marsha (Maalox Reg) Susp 30 Ml Udc PO 06/23/24 09:07 Q4HR PRN Heartburn or Upset Stomach Aspirin 81 mg 05/25/24 09:00 05/26/24 09:57 Aspirin 81 Mg Chew PO 06/24/24 08:59 81 mg QDAY JANETTE Administration Atorvastatin Calcium 40 mg 05/24/24 21:00 05/25/24 20:40 Atorvastatin Calcium 20 Mg Tablet PO 06/23/24 20:59 40 mg HS JANETTE Administration Bumetanide 2 mg 05/26/24 21:00 Bumetanide Inj 0.25 Mg/Ml Vial 4 Ml IVP 06/25/24 20:59 BID JANETTE Doxycycline Hyclate 100 mg 05/26/24 10:15 05/26/24 10:44 Doxycycline 100 Mg Tablet PO 06/02/24 10:14 100 mg BID JANETTE Administration Enoxaparin Sodium 40 mg 05/25/24 09:00 05/26/24 09:56 Enoxaparin Sod Inj 40 Mg/0.4 Ml Syringe SC 06/08/24 08:59 40 mg QDAY JANETTE Administration Famotidine 20 mg 05/25/24 09:00 05/26/24 09:57 Famotidine Inj 10 Mg/Ml Vial 2 Ml IVP 06/24/24 08:59 20 mg QDAY JANETTE Administration Piperacillin/Tazobactam/Dextrose 50 mls @ 12.5 mls/hr 05/24/24 16:00 05/26/24 09:56 Zosyn IV 05/31/24 15:59 12.5 mls/hr Q8H JANETTE Administration Magnesium Hydroxide 30 ml 05/24/24 09:08 Milk Of Magnesia Susp 30 Ml Udc PO 06/23/24 09:07 QDAY PRN CONSTIPATION Spironolactone 25 mg 05/26/24 10:30 05/26/24 10:44 Spironolactone 25 Mg Tablet PO 06/25/24 10:29 25 mg BID JANETTE Administration Plan 64-year-old male with a past medical history of HFrEF with ejection fraction of 15 to 20%, chronic left ventricular thrombus, methamphetamine abuse, dilated cardiomyopathy secondary to meth use, history of hep C, chronic left foot osteomyelitis, hypertension, hyperlipidemia, medical noncompliance and homelessness presented to [facility] ED due to SOB. Admitted for acute hypoxic rfespiratory failure secondary to CHF exacerbation #Acute hypoxic respiratory failure like secondary to #Acute on chronic decompensated systolic heart failure exacerbation #Bilateral pneumonia CAP vs aspiration #HFrEF 20-25% #Dilated cardiomyopathy Patient currently with bilateral crackles on exam as well as pitting edema bilaterally in the lower extremities was on lasix but diuresis was not adequate Echo Dilated cadiomyopathy with severe global hypokineis . Estimated EF 20-25% LV THROMBUS IS NOT PRESENT /COMPLETELY RESOLVED Mild RV dilated. Mild RV dyfunction. Estimated RVSP 48mmHg. Severe biatrial dilatation Mild Mitral regurgitation. Mild aortic regurgitation MIld TR PI. Pleural effusion present. CXR indicated significant vascular congestion and bibasilar pneumonia, along with cavitary disease in the right lung - on doxycycline and zosyn - Lasix swiched to bumex 2mg IV BID - on spironolactone - strict in and outs - daily weights - aspirin 81mg - atorvastatin - metoprolol 12.5mg #Cavitary lesion CXR indicated significant vascular congestion and bibasilar pneumonia, along with cavitary disease in the right lung patient has risk factors for tb, including homeless retirement however patient does not have weight loss, chills, night sweats, hemoptysis At this time there is low suspicion for Tb - ID consulted appreciate recommendations - on antibiotics - Cocci pending #GEOVANY Most likely due to volume overload. Patient is severely volume overloaded state, vascular congestion on chest imaging, 3+ bilateral lower extremity pitting edema. Patient producing adequate urine. - Monitor urine output - Avoid nephrotoxic medications - Continue Diuresis #Transaminitis likely due to hepatic congestion from volume overloaded state - continue to monitor at this time #Normocytic anemia - will monitor at this time #Skin erosion Erosion of skin at base of penis, unclear cause -skin repair cream #Bradycardia-resolved Case discussed with my senior Dr. Ratliff PGY-[address] Jose G Mercedes MD PGY-1 Senior resident attestation: Patient evaluated and examined at the bedside, plan of care discussed with rest of the team including my attending physician, except as noted. Gaudencio PGY2 Attending Provider Attestation/Addendum 63-year-old male with methamphetamine use disorder with subsequent dilated cardiomyopathy with heart failure with reduced EF with EF 15-20% and left ventricular thrombus, hep C, hypertension, hyperlipidemia who presented to the ER on 05/23/2024 with cough and shortness of breath found to have acute hypoxic respiratory failure secondary to acute decompensated CHF exacerbation and pneumonia. On 05/24/2024, patient noted to have increasing work of breathing and subsequently intubated and taken to the ICU. Furthermore, patient noted to have worsening hypoxia on the plan and hypotension and initially thought it might be saddle PE and subsequently patient was given tenecteplase. Furthermore, patient started on dobutamine for cardiogenic shock and further workup including CTA with no evidence of PE however did have cavitary lesion. On 05/25/2024 patient was subsequently extubated and downgraded to MedSur. I reviewed above note and agree with findings and plans. I have also personally examined the patient with medicine team and went over assessment and plan with medical team including manager of internal audit and resident physician.
[2024-05-26 13:52] LABS: Cocci Serology, IgM Negative (Negative)
[2024-05-26] MEDS: ATORVASTATIN CALCIUM 20 MG TABLET 40 MG PO (21:10)
[2024-05-26] MEDS: BUMETANIDE INJ 0.25 MG/ML VIAL 4 ML 2 MG IVP (21:13)
[2024-05-27] VITALS (13 sets, daily range): BP systolic 108–118; BP diastolic 76–97; PULSE 61–113; RESP 16–94; TEMP 36.2–36.6; O2SAT 94–99; BMI 25.8
[2024-05-27] MEDS: PIPER/TAZO 3.375 GM 50 ML IV ×4 (00:01→23:20)
[2024-05-27] MEDS: ZOLPIDEM 5 MG TABLET PO (00:34)
[2024-05-27 05:48] LABS: Basophils % (Auto) 0 % (0-2.5); Eosinophils % (Auto) 0 % (0-10); Hematocrit 35.2 % (41.0-53.0); Hemoglobin 11.7 g/dL (13.5-16.0); Immature Granulocytes % (Auto) 1 % (0-0); Immature Granulocytes Auto 0.05 Thou/mm3 (0.00-0.00); Lymphocytes # (Auto) 0.8 Thou/mm3 (1.0-4.8); Lymphocytes % (Auto) 8 % (10-50); Mean Corpuscular HGB Conc 33.2 g/dl (31.0-37.0); Mean Corpuscular Hemoglobin 28.2 pg (25.0-35.0); Mean Corpuscular Volume 85 fL (80-100); Monocytes # (Auto) 0.9 Thou/mm3 (0.0-0.8); Monocytes % (Auto) 10 % (0-12); Neutrophils # (Auto) 7.8 Thou/mm3 (1.8-7.7); Neutrophils % (Auto) 81 % (37-80); Nucleated Red Blood Cell % 0 /100 WBC (0); Platelet Count 138 Thou/mm3 (140-440); RDW Standard Deviation 54.6 fL (35.1-43.9); Red Blood Count 4.15 Miln/mm3 (4.50-5.90); White Blood Count 9.6 Thou/mm3 (3.8-10.6)
[2024-05-27 06:28] LABS: Anion Gap 5 (7-16); BUN/Creatinine Ratio 23 Ratio (12-20); Blood Urea Nitrogen 41 mg/dL (9-23); Calcium 8.1 mg/dL (8.3-10.6); Carbon Dioxide 27.8 mMol/L (20.0-31.0); Chloride 101 mMol/L (98-107); Creatinine (Component) 1.8 mg/dL (0.6-1.3); Glucose 82 mg/dL (74-106); Magnesium 1.8 mg/dL (1.6-2.6); Osmolality,Calculated 277 (275-295); Phosphorous 3.1 mg/dL (2.4-5.1); Potassium 3.5 mMol/L (3.4-5.1); Sodium 134 mMol/L (136-145); eGFR 42 See Note
--- NOTE | 2024-05-27 09:44 | ESPR_ITS ---
Subjective Subjective Interval history: hx noted. hep c pos. vl neg, so cleared on its own or was false pos. hard to know pt here for chf it appears. on zosyn and doxy for possible infection but cx unrevealing. Exam Vital Signs Temp Pulse Resp BP Pulse Ox O2 Del Method O2 Flow Rate 97.7 F 79 16 118/97 H 96 Room Air 7 05/27/24 08:00 05/27/24 08:00 05/27/24 08:00 05/27/24 08:00 05/27/24 08:00 05/27/24 08:00 05/27/24 00:00 FiO2 30 05/27/24 00:00 Narrative Exam non interactive but not on O2. sl tachypnea and pedal edema noted. Objective - Internal Medicine Labs 05/27/24 05:14 05/27/24 05:14 Labs: Laboratory Results - last 24 hr 05/26/24 05/26/24 05/27/24 09:44 09:48 05:14 WBC 9.6 RBC 4.15 L Hgb 11.7 L Hct 35.2 L MCV 85 MCH 28.2 MCHC 33.2 RDW Std Deviation 54.6 H Plt Count 138 L D Neut % (Auto) 81 H Lymph % (Auto) 8 L [place] % (Auto) 10 Eos % (Auto) 0 Baso % (Auto) 0 Neut # (Auto) 7.8 H Lymph # (Auto) 0.8 L [place] # (Auto) 0.9 H Eos # (Auto) 0.0 Baso # (Auto) 0.0 Immature Gran # (Auto) 0.05 H Absolute Nucleated RBC 0.00 Immature Gran % 1 H Nucleated RBC % 0 Sodium 134 L Potassium 3.5 D Chloride 101 Carbon Dioxide 27.8 Anion Gap 5 L BUN 41 H Creatinine 1.8 H Estim Creat Clear Calc 42.0 L eGFR 42 L BUN/Creatinine Ratio 23 H Glucose 82 Calculated Osmolality 277 Calcium 8.1 L Phosphorus 3.1 Magnesium 1.8 Random Vancomycin 15.0 Coccidioides IgM Ab Negative ABG Interpretation ABG results: 05/24/24 05/24/24 05/25/24 09:09 13:55 04:23 ABG pH 7.29 L 7.29 L 7.34 L ABG pCO2 29 L 46 D 41 ABG pO2 329 H 87 D 137 H D ABG HCO3 14 L 22 22 ABG O2 Saturation 101 H 96 100 H ABG Base Excess -11 L -5 L -4 L Assessment & Plan A&P Narrative chf vs pneumonia pmh as noted hx of hep c pos with neg vl a few months later I am ok with all po rx with augmentin and doxy for remainder of 1 week. will see again thursday if remains in house. see that he is a full code. Time Spent With Patient Time: Total time spent is greater than 50% in coordination of care (as documented) at patient's floor/unit and/or counseling patient:
[2024-05-27] MEDS: ENOXAPARIN SOD INJ 40 MG/0.4 ML SYRINGE SC (09:52)
[2024-05-27] MEDS: METOPROLOL SUCCINATE XL 25 MG TABCR 12.5 MG PO (09:52)
[2024-05-27] MEDS: BUMETANIDE INJ 0.25 MG/ML VIAL 4 ML 2 MG IVP ×2 (09:55→20:18)
[2024-05-27] MEDS: DOXYCYCLINE 100 MG TABLET PO ×2 (09:56→20:17)
[2024-05-27] MEDS: SPIRONOLACTONE 25 MG TABLET PO ×2 (09:56→20:17)
[2024-05-27] MEDS: ASPIRIN 81 MG CHEW PO (09:56)
[2024-05-27] MEDS: FAMOTIDINE INJ 10 MG/ML VIAL 2 ML 20 MG IVP (09:56)
--- NOTE | 2024-05-27 10:25 | ESPR_ITS ---
Documentation for date of: 05/27/24 Subjective - Hospitalist Subjective Interval history: Patient states that he is doing well. Continues to be on NC at 3-7L Net nagative 800ml Review of Systems Constitutional Comments: General: Denies fevers or chills. Heart: Denies chest pain or palpitation Lungs: Denies shortness of breath or cough . Abdomen: Denies diarrhea, constipation, bright red blood per rectum or melena. Neurology: Denies any changes in vision, weakness or difficulty speaking. The rest of review of system is otherwise negative except what is mentioned above Exam Vital Signs Temp Pulse Resp BP Pulse Ox O2 Del Method O2 Flow Rate 97.7 F 79 16 118/97 H 96 Room Air 7 05/27/24 08:00 05/27/24 09:56 05/27/24 08:00 05/27/24 09:56 05/27/24 08:00 05/27/24 08:00 05/27/24 00:00 FiO2 30 05/27/24 00:00 Narrative Physical Exam: General: Alert and oriented to name, date of and place HEENT: Normocephalic, atraumatic, dry oral mucosa, poor dentition. Cardiac: Regular rate and rhythm, no murmurs Lungs: Crackles in the bibasilar area. No wheezing Abdomen: Nondistended, nontender positive bowel sounds. No guarding or rebound tenderness. Neurology: Cranial nerves II to XII intact and patient able to move all 4 extremities. Skin: +1 BLE edema Objective - Hospitalist Labs Diagram: 05/27/24 05:14 05/27/24 05:14 Labs: Laboratory Results - last 24 hr 05/26/24 05/26/24 05/27/24 09:44 09:48 05:14 WBC 9.6 RBC 4.15 L Hgb 11.7 L Hct 35.2 L MCV 85 MCH 28.2 MCHC 33.2 RDW Std Deviation 54.6 H Plt Count 138 L D Neut % (Auto) 81 H Lymph % (Auto) 8 L [place] % (Auto) 10 Eos % (Auto) 0 Baso % (Auto) 0 Neut # (Auto) 7.8 H Lymph # (Auto) 0.8 L [place] # (Auto) 0.9 H Eos # (Auto) 0.0 Baso # (Auto) 0.0 Immature Gran # (Auto) 0.05 H Absolute Nucleated RBC 0.00 Immature Gran % 1 H Nucleated RBC % 0 Sodium 134 L Potassium 3.5 D Chloride 101 Carbon Dioxide 27.8 Anion Gap 5 L BUN 41 H Creatinine 1.8 H Estim Creat Clear Calc 42.0 L eGFR 42 L BUN/Creatinine Ratio 23 H Glucose 82 Calculated Osmolality 277 Calcium 8.1 L Phosphorus 3.1 Magnesium 1.8 Random Vancomycin 15.0 Coccidioides IgM Ab Negative ABG Interpretation ABG results: 05/24/24 05/24/24 05/25/24 09:09 13:55 04:23 ABG pH 7.29 L 7.29 L 7.34 L ABG pCO2 29 L 46 D 41 ABG pO2 329 H 87 D 137 H D ABG HCO3 14 L 22 22 ABG O2 Saturation 101 H 96 100 H ABG Base Excess -11 L -5 L -4 L Assessment & Plan Patient Synopsis 63-year-old male with methamphetamine use disorder with subsequent dilated cardiomyopathy with heart failure with reduced EF with EF 15-20% and left ventricular thrombus, hep C, hypertension, hyperlipidemia who presented to the ER on 05/23/2024 with cough and shortness of breath found to have acute hypoxic respiratory failure secondary to acute decompensated CHF exacerbation and pneumonia. On 05/24/2024, patient noted to have increasing work of breathing and subsequently intubated and taken to the ICU. Furthermore, patient noted to have worsening hypoxia on the plan and hypotension and initially thought it might be saddle PE and subsequently patient was given tenecteplase. Furthermore, patient started on dobutamine for cardiogenic shock and further workup including CTA with no evidence of PE however did have cavitary lesion. On 05/25/2024 patient was subsequently extubated and downgraded to MedSur. 1. Acute hypoxic respiratory failure 2. Acute decompensated systolic CHF exacerbation 3. Cavitary lung lesion ? Patient with known heart failure with EF 20-25% presenting with signs and symptoms of acute CHF exacerbation requiring intubation and subsequent extubation ? As for CHF, patient is on Bumex 2 mg IV twice daily and patient is net -800 mL however not accurately documented however clinically appears to be improving for which we will continue ? Continue metoprolol, spironolactone and unable to add BERNADETTE/ARB's given GEOVANY. ? As for cavitary lesion, patient denies any hemoptysis, weight loss or night sweats thus low suspicion for TB ? Plan to continue Zosyn and doxycycline for now ? Continue titrating down supplemental oxygen currently on 7 L 4. Cavitary lung lesion ? Found on CTA ? Patient denies any hemoptysis, night sweats, weight loss and low suspicion for TB ? Cocci study pending ? On IV antibiotic therapy pending ID input 5. GEOVANY ? Likely related to CHF ? Avoid nephrotoxic agent and continue IV diuretic therapy 6. Transaminitis ? Continue to monitor 7. History of LV thrombus ? Repeat echocardiogram noted: LV THROMBUS IS NOT PRESENT /COMPLETELY RESOLVED 8. Hep C positive ? Hep C antibody positive however viral load is negative ? Continue to monitor 9. Normocytic anemia ? Stable Healthcare Maintenance: DVT prophylaxis: Lovenox 40 mg daily GI prophylaxis: Famotidine 20 mg twice daily Diet: Cardiac diet Lines: PIV CODE STATUS: Full code Reason for hospitalization: Hypoxic respiratory failure on supplemental oxygen secondary to acute CHF exacerbation Time Spent with Patient Time: Total time spent is greater than 50% in coordination of care (as documented) at patient's floor/unit and/or counseling patient: Time with patient: Greater than 35 minutes Reason for Continued Stay Reason for continued stay: further monitoring, acute renal failure and continue IV diuretic Quality Measures Quality Measures VTE prophylaxis
--- NOTE | 2024-05-27 10:44 | PC.SS ---
Follow up note: Pt is on IV antibiotic. IV diuresis. SS met with pt who states he is homeless and has been staying in the area on [facility] in [place]. Pt has cane, shoes, and clothes in the closet and bedside nurse, Moris is aware. Pt is currently on room air.
--- NOTE | 2024-05-27 12:47 | ESCONSULT_ITS ---
RE: NELDA LEON : 1960 DATE OF CONSULTATION: 05/27/2024 REFERRING PHYSICIAN: Dr. Degroot REASON FOR CONSULTATION: Respiratory failure, improved with negative cultures and the patient with CHF. HISTORY OF PRESENT ILLNESS: The patient is an unfortunate 64-year-old man who is full code, presumably at the discretion of others. His chest x-ray shows some heart failure, which is verified by the echocardiogram. He also may have left sided pneumonia. It is hard to tell we will go ahead and give him treatment for both. He does not seem to need any oxygen. He is a poor historian. He is unable to answer questions at this time. That would include no formal past history, allergies, immunizations, or other history. No family or social history. I do not have any information about what he takes at home or any other interactive stuff. His meds at home appear to be possibly atorvastatin, Bumex, some oral antibiotics, doxycycline, metoprolol, promethazine, apixaban, and possibly an inhaler. We cannot verify that at this time. His labs showed normalization of his white count. He has a negative HIV test and a positive hepatitis C test from 07/17/2022. The positive hepatitis C test was evaluated with a viral load in 09/2023 that is negative, so it looks like he cleared at some point. It is hard to know when. It is possible that this test may be falsely positive, we do not still know. He cannot offer any history at this time, so history is limited information on file. There is no need to treat him. His creatinine is also up a bit. After admission, it was 1.3 and then has been 1.7 to 1.9 ever since. Those are technically abnormal values. It has been similar to where they were prior. He has a long history of chronic kidney disease. It looks like it dates back to 2022. His other health problems are limited information to cardiac disease mostly. It looks like he was admitted to the ED initially for hypoxic respiratory failure and was intubated briefly, but then was extubated. He was given TPA for possible pulmonary embolus and does have known cardiomyopathy apparently due to methamphetamine use. He is homeless and has a history of noncompliance as well. I am assuming there are some discharge plans in place, but I am not certain of that. I assumed that may be plan, that is out of my scope. The patient has been moved to telemetry. He is no longer in ICU. He is unable to interact. He does not seem to require oxygen and is dyspneic with some pedal edema appreciated. ASSESSMENT: 1. Heart failure versus pneumonia. 2. Methamphetamine use with severe heart failure, left-sided. RECOMMENDATIONS: The patient needs to have management for both, so we can give him doxycycline and Augmentin orally. His cultures are negative, so treatment is somewhat empiric. I will check on him again Thursday if he remains, but for now, I will recommend treatment as above and follow up more as needed. DT: 09:56:04 TT: 11:18:00 Ref: [id number] - TID: [id number] MTDD
[2024-05-27 13:18] LABS: Cocci Serology, IgG Negative (Negative)
[2024-05-27] MEDS: ATORVASTATIN CALCIUM 20 MG TABLET 40 MG PO (20:18)
[2024-05-28] VITALS (8 sets, daily range): BP systolic 100–114; BP diastolic 74–79; PULSE 59–91; RESP 16–99; TEMP 36.2–36.6; O2SAT 93–96
[2024-05-28 07:08] LABS: Magnesium 1.4 mg/dL (1.6-2.6); Phosphorous 3.9 mg/dL (2.4-5.1)
[2024-05-28 07:52] LABS: Basophils % (Auto) 0 % (0-2.5); Eosinophils # (Auto) 0.5 Thou/mm3 (0.0-0.5); Eosinophils % (Auto) 5 % (0-10); Hematocrit 39.4 % (41.0-53.0); Hemoglobin 13.1 g/dL (13.5-16.0); Immature Granulocytes % (Auto) 0 % (0-0); Immature Granulocytes Auto 0.04 Thou/mm3 (0.00-0.00); Lymphocytes % (Auto) 12 % (10-50); Mean Corpuscular HGB Conc 33.2 g/dl (31.0-37.0); Mean Corpuscular Hemoglobin 28.4 pg (25.0-35.0); Mean Corpuscular Volume 85 fL (80-100); Monocytes # (Auto) 1.1 Thou/mm3 (0.0-0.8); Monocytes % (Auto) 13 % (0-12); Neutrophils # (Auto) 6.3 Thou/mm3 (1.8-7.7); Neutrophils % (Auto) 70 % (37-80); Nucleated Red Blood Cell % 0 /100 WBC (0); Platelet Count 123 Thou/mm3 (140-440); RDW Standard Deviation 55.9 fL (35.1-43.9); Red Blood Count 4.62 Miln/mm3 (4.50-5.90)
[2024-05-28 08:28] LABS: Alanine Aminotransferase 48 U/L (10-49); Albumin, Serum 3.7 gm/dL (3.4-4.8); Albumin/Globulin Ratio 1.2 (1.2-2.2); Alkaline Phosphatase 121 U/L (46-116); Anion Gap 10 (7-16); Aspartate Amino Transferase 72 U/L (0-34); BUN/Creatinine Ratio 22 Ratio (12-20); Bilirubin,Total 1.1 mg/dL (0.3-1.2); Blood Urea Nitrogen 33 mg/dL (9-23); Calcium 8.2 mg/dL (8.3-10.6); Calcium (Corrected) 8.4 mg/dL (8.5-10.1); Carbon Dioxide 31.4 mMol/L (20.0-31.0); Chloride 95 mMol/L (98-107); Creatinine (Component) 1.5 mg/dL (0.6-1.3); Estimated Creatinine Clearance 48.8 mL/min (>60); Globulin 3.1 gm/dL (2.3-3.5); Glucose 112 mg/dL (74-106); Osmolality,Calculated 280 (275-295); Potassium 3.4 mMol/L (3.4-5.1); Sodium 136 mMol/L (136-145); Total Protein 6.8 gm/dL (5.7-8.2); eGFR 52 See Note
[2024-05-28] MEDS: BUMETANIDE INJ 0.25 MG/ML VIAL 4 ML 2 MG IVP (09:35)
[2024-05-28] MEDS: ASPIRIN 81 MG CHEW PO (09:36)
[2024-05-28] MEDS: METOPROLOL SUCCINATE XL 25 MG TABCR 12.5 MG PO (09:36)
[2024-05-28] MEDS: DOXYCYCLINE 100 MG TABLET PO (09:36)
[2024-05-28] MEDS: PIPER/TAZO 3.375 GM 50 ML IV (09:36)
[2024-05-28] MEDS: FAMOTIDINE INJ 10 MG/ML VIAL 2 ML 20 MG IVP (09:36)
[2024-05-28] MEDS: ENOXAPARIN SOD INJ 40 MG/0.4 ML SYRINGE SC (09:36)
[2024-05-28] MEDS: SPIRONOLACTONE 25 MG TABLET PO (09:37)
--- NOTE | 2024-05-28 10:03 | PC.NURSE ---
made aware pt refusing tto keep tele box on
--- NOTE | 2024-05-28 10:48 | PC.NURSE ---
was at bedside explaining pt POC pt refusing to listen pt decided he wants to go AMA pt refused to sign paperwork
--- NOTE | 2024-05-28 12:11 | PD.RESEVENT ---
Documentation for date of: 05/28/24 Event Note Event Note: 05/28/2024: The patient has decided to sign out against medical advice (AMA) after being explained the risks & benefits of leaving before medical clearance/discharge. The patient had the opportunity to ask questions about their condition which were answered to their satisfaction; the patient is aware that they may return for further care at any time as needed. Patient was prescribed antibiotic treatment to his pharmacy. Sharan Mercedes MD PGY-1
== END 2024-05-28 10:54 | disposition left against medical advice (07) | DRG 133 ==
LOC: SERX 05-24 05:25 → SERHOLD 05-24 06:01 → S2SX 05-24 13:17 → S2NX 05-26 00:18
PROVIDERS: Internal Medicine; Student in an Organized Health Care Education/Training Program; Admitting Provider Internal Medicine; Emergency Provider Emergency Medicine; Visit Provider Internal Medicine
DX: J96.01 Acute respiratory failure with hypoxia (principal); I50.23 Acute on chronic systolic (congestive) heart failure; I21.A1 Myocardial infarction type 2; E87.1 Hypo-osmolality and hyponatremia; I13.0 Hypertensive heart and chronic kidney disease with heart failure and stage 1 through stage 4 chronic kidney disease, or unspecified chronic kidney disease; E87.20 Acidosis, unspecified; I42.0 Dilated cardiomyopathy; D63.1 Anemia in chronic kidney disease; I42.7 Cardiomyopathy due to drug and external agent; B19.20 Unspecified viral hepatitis C without hepatic coma; L98.9 Disorder of the skin and subcutaneous tissue, unspecified; N18.9 Chronic kidney disease, unspecified; R91.1 Solitary pulmonary nodule; I08.3 Combined rheumatic disorders of mitral, aortic and tricuspid valves; F15.10 Other stimulant abuse, uncomplicated; J18.9 Pneumonia, unspecified organism; E78.5 Hyperlipidemia, unspecified; R00.1 Bradycardia, unspecified; R45.1 Restlessness and agitation; N17.9 Acute kidney failure, unspecified; R57.0 Cardiogenic shock; Z53.29 Procedure and treatment not carried out because of patient's decision for other reasons; Z59.01 Sheltered homelessness; Z91.199 Patient's noncompliance with other medical treatment and regimen due to unspecified reason; Z87.891 Personal history of nicotine dependence; Z79.899 Other long term (current) drug therapy
CPT/HCPCS: 36415; 36600; 71045; 71046; 71275; 80048; 80053; 80202; 80307; 80320; 81001; 82550; 82803; 83605; 83690; 83735; 83880; 84100; 84132; 84145; 84484; 85025; 85610; 85730; 86331; 86635; 87040; 87081; 87106; 87205; 87400; 87811; 93005; 93306; 93970; 94002; 94003; 94640; 94660; 96365; 96368; 96374; 96376; 99291; A4649; A9270; J0330; J0456; J0696; J1100; J1250; J1650; J1940; J2543; J2704; J3010; J3101; J3370; J3371; J3475; J3490; J7040; J7050; Q9967; G0480

== ENCOUNTER 2024-05-29 20:14 | Inpatient (IN) | payer MEDICAID, SELFPAY ==
[2024-05-29 20:15] VITALS: PULSE 105; RESP 18; O2SAT 98
[2024-05-29 21:00] VITALS: BP 149/102; PULSE 86; RESP 17; TEMP 36.8; O2SAT 96
--- NOTE | 2024-05-29 21:11 | EKG_ITS ---
[facility] Test Date: 2024-05-29 Pat Name: NELDA LEON Department: Room: - Gender: Male Appraisal Coordinator: : 1960 Requested By: Junior See Order Number: [id number] Reading MD: Junior See Measurements Intervals [place] Rate: 82 P: 50 [place]: 218 QRS: -83 QRSD: 120 T: 54 QT: 407 QTc: 476 Interpretive Statements SINUS RHYTHM WITH FIRST DEGREE AV BLOCK LEFT ATRIAL ENLARGEMENT [-0.15mV P WAVE IN V1/V2] LEFT ANTERIOR FASCICULAR BLOCK [QRS AXIS <= -45, QR IN I, RS IN II] LATERAL MYOCARDIAL INFARCTION , OF INDETERMINATE AGE [40+ ms Q WAVE AND/OR ST/T ABNORMALITY IN I/aVL/V5/V6] Compared to ECG 05/23/2024 21:32:30 First degree AV block now present Left anterior fascicular block now present Sinus tachycardia no longer present Myocardial infarct finding still present /store/S0/[id number].pdf
--- NOTE | 2024-05-29 21:11 | XR_ITS ---
Examination: PA chest single view Technique: Upright PA chest single view Exam date and time: May 29, 2024 2115 hrs. Comparison May 25, 2024 Indications: Shortness of breath today. Findings: Early heart failure Moderate enlargement left ventricle Prominent vascular congestion Early septal edema at the lung bases Impression: Early CHF
--- NOTE | 2024-05-29 21:12 | PD.EDRME ---
Rapid Medical Screening Exam RME Arrival date/time: 05/29/24 20:14 CC: Chest pain HPI ongoing starting today, initially complained about his old hernia but I focused on pain from today. Patient states pain is a 5 to a 6 on a 10 scale center nonradiating. Chief Complaint: Abdominal Pain Time Seen by Provider: 05/29/24 20:58 Vital signs: Vital Signs Temperature 98.3 F 05/29/24 21:00 Pulse Rate 86 05/29/24 21:00 Respiratory Rate 17 05/29/24 21:00 Blood Pressure 149/102 H 05/29/24 21:00 Pulse Oximetry (%) 96 05/29/24 21:00 Oxygen Delivery Method Room Air 05/29/24 21:00
[2024-05-29 22:10] LABS: Basophils % (Auto) 0 % (0-2.5); Eosinophils % (Auto) 12 % (0-10); Hematocrit 41.7 % (41.0-53.0); Hemoglobin 13.4 g/dL (13.5-16.0); Immature Granulocytes % (Auto) 2 % (0-0); Immature Granulocytes Auto 0.14 Thou/mm3 (0.00-0.00); Lymphocytes # (Auto) 1.4 Thou/mm3 (1.0-4.8); Lymphocytes % (Auto) 16 % (10-50); Mean Corpuscular HGB Conc 32.1 g/dl (31.0-37.0); Mean Corpuscular Hemoglobin 27.9 pg (25.0-35.0); Mean Corpuscular Volume 87 fL (80-100); Monocytes # (Auto) 0.9 Thou/mm3 (0.0-0.8); Monocytes % (Auto) 11 % (0-12); Neutrophils # (Auto) 5.2 Thou/mm3 (1.8-7.7); Neutrophils % (Auto) 60 % (37-80); Nucleated Red Blood Cell % 0 /100 WBC (0); Platelet Count 163 Thou/mm3 (140-440); RDW Standard Deviation 56.1 fL (35.1-43.9); White Blood Count 8.7 Thou/mm3 (3.8-10.6)
[2024-05-29 22:29] LABS: Alanine Aminotransferase 42 U/L (10-49); Albumin, Serum 3.7 gm/dL (3.4-4.8); Alkaline Phosphatase 143 U/L (46-116); Anion Gap 11 (7-16); Aspartate Amino Transferase 52 U/L (0-34); BUN/Creatinine Ratio 15 Ratio (12-20); Bilirubin,Total 0.9 mg/dL (0.3-1.2); Blood Urea Nitrogen 18 mg/dL (9-23); Calcium 8.7 mg/dL (8.3-10.6); Calcium (Corrected) 8.9 mg/dL (8.5-10.1); Carbon Dioxide 27.5 mMol/L (20.0-31.0); Chloride 98 mMol/L (98-107); Creatinine (Component) 1.2 mg/dL (0.6-1.3); Globulin 3.6 gm/dL (2.3-3.5); Glucose 104 mg/dL (74-106); Osmolality,Calculated 273 (275-295); Sodium 136 mMol/L (136-145); Total Protein 7.3 gm/dL (5.7-8.2); eGFR > 60 See Note
[2024-05-29 22:33] LABS: Troponin I 4.861 ng/mL (0.0-0.045)
[2024-05-29 23:28] VITALS: BP 106/81; PULSE 97; RESP 20; TEMP 36.7; O2SAT 96; BMI 22.8
--- NOTE | 2024-05-29 23:43 | EDNOTE_ITS ---
ED Abdominal Pain RME/HPI General Chief Complaint: Abdominal Pain Stated complaint: ABDOMINAL PAIN Time seen by provider: 05/29/24 20:58 Arrival date/time: 05/29/24 20:14 RME / HPI RME / HPI narrative: 05/29/24 20:14 CC: Chest pain HPI ongoing starting today, initially complained about his old hernia but I focused on pain from today. Patient states pain is a 5 to a 6 on a [address] DELANEY MAIN ED EVALUATION: 64 year old male with past medical history significant for old abdominal hernia, CHF and low EF, methamphetamine use, dilated cardiomyopathy, and hep C presents to the Emergency Department BIBA with complaint of abdominal pain today. Pain is described as aching and rated 5/10. No other symptoms reported at this time. Related Data Home Medications ?Medication ?Instructions ?Recorded ?Confirmed albuterol sulfate 90 mcg/actuation inhalation 05/30/24 aerosol inhaler amoxicillin 875 mg tablet mg 05/30/24 apixaban 5 mg tablet (Eliquis) 5 mg PO BID 05/30/24 05/30/24 aspirin 81 mg chewable tablet 81 mg PO QDAY 05/30/24 05/30/24 atorvastatin 40 mg tablet 40 mg PO 1XD 05/30/24 05/30/24 bumetanide 2 mg tablet mg 05/30/24 doxycycline hyclate 100 mg tablet mg 05/30/24 metoprolol succinate 25 mg mg PO 05/30/24 tablet,extended release 24 hr Previous Rx's ?Medication ?Instructions ?Recorded doxycycline monohydrate 100 mg 100 mg PO BID #14 caps 05/16/24 capsule promethazine 6.25 mg/5 mL oral 6.25 mg (5 mL) PO TID PRN cough 05/16/24 syrup #120 mL albuterol sulfate 90 mcg/actuation 1 inh inhalation QID PRN shortness 05/19/24 aerosol inhaler of breath or wheezing #8.5 grams apixaban 5 mg tablet (Eliquis) 5 mg PO BID 2 weeks #28 tabs 05/19/24 aspirin 81 mg chewable tablet 81 mg PO QDAY 2 weeks #14 tabs 05/19/24 atorvastatin 40 mg tablet 40 mg PO QPM 2 weeks #14 tabs 05/19/24 bumetanide 2 mg tablet 2 mg PO QDAY 2 weeks #14 tabs 05/19/24 metoprolol succinate 25 mg capsule 25 mg PO BID 2 weeks #28 ea 05/19/24 sprinkle, ext. release 24 hr amoxicillin 875 mg tablet 875 mg PO BID 7 days #14 tabs 05/28/24 doxycycline hyclate 100 mg tablet 100 mg PO BID 7 days #14 tabs 05/28/24 Allergies Allergy/AdvReac Type Severity Reaction Status Date / Time No Known Allergies Allergy Verified 05/21/24 19:15 Review of Systems Review of Systems Systems Reviewed: All systems reviewed, normal except as documented Narrative Review of Systems: GEN: No fever, no chills, no weight loss EYES: No discharge, no visual changes, no pain HEENT: No ear pain, no congestion, no sore throat PULM: No shortness of breath, no cough, no congestion CV: No chest pain, no dyspnea on exertion, no palpitations GI: No nausea, no vomiting, no diarrhea, + abdominal pain, no constipation : No frequency, no urgency and no dysuria MUSC/SKEL: No joint pain, no back pain SKIN: No rash PSYCH: No hallucinations, no depression HEME/LYMPH: No easy bleeding or bruising tendencies NEURO: No weakness, no headache Past Medical History Past Medical History NEUROLOGIC: Positive Cerebrovascular Accident CARDIAC: Positive Cardiac Disorders, Congestive Heart Failure and Hypertension RESPIRATORY: Positive Asthma GASTROINTESTINAL: Positive Gastrointestinal Disorders, Hepatitis and Ulcer GENITOURINARY: Positive Inguinal Hernia MUSCULOSKELETAL: Positive Musculoskeletal Disorders, Arthritis, Gout and Osteomyelitis HEMATOLOGIC: Positive Anemia PSYCHO/SOCIAL: Positive Recreational Drug Use, Depression and Anxiety Family History FAMILY HISTORY: Positive Family Psychiatric Problems, Family Cardiac Disorders and Family Cancer Surgical History SURGICAL: Positive Abdominal Surgery Social History SMOKING STATUS: Never smoker SUBSTANCE USE: methamphetamine ALCOHOL: Never ED Exam Narrative Physical exam: GENERAL APPEARANCE: alert and oriented x 4, well-developed, well-nourished, no acute distress VITALS: All vitals were reviewed and the pulse ox is 99% on room air, which is normal according to my interpretation. HEENT: Normocephalic, atraumatic; pupils equal, round, reactive to light; EOMI; mucous membranes pink, moist; oropharynx clear NECK: Supple LUNGS: CTABL; no wheezes, no rales, no rhonchi HEART: Regular rate, regular rhythm; normal S1, S2; no murmurs ABDOMEN: non distended; normal BS; soft, no tenderness, no guarding, no rebound; no masses, no organomegaly BACK: no CVA tenderness EXTREMITIES: atraumatic; no edema NEUROLOGIC: awake; alert and oriented x4; cranial nerves II-XII grossly intact; no focal sensory or motor deficits PSYCHIATRIC: appropriate mood and affect SKIN: warm, dry, normal color; no rashes Course Quality Measures none Orders Category Date Time Status Admit to Inpatient Status Routine Admission 05/30/24 01:21 Active Change Patient Visit Status Routine Admission 05/30/24 11:23 Active Patient Condition Routine Admission 05/30/24 01:21 Ordered EKG (ED ONLY) *Do not use* NOW Care 05/29/24 21:11 Completed EKG (ED ONLY) *Do not use* NOW Care 05/30/24 03:36 Completed MRI Screening NOW Care 05/31/24 11:02 Completed Miscellaneous Nursing Order NOW Care 05/30/24 01:33 Completed Notify provider NEEDED Care 05/30/24 01:21 Completed Strict Intake and Output Routine Care 05/30/24 01:43 Ordered Consult to Cardiology Routine Cons 05/30/24 01:41 Ordered Consult to Infectious Diseases Routine Cons 05/31/24 11:03 Ordered Diet Cardiac Diet 05/30/[address] abdomen pelvis wo con Stat Exams 05/31/24 07:10 Completed EKG (ED Only) Stat Exams 05/29/24 21:11 Ordered EKG (ED Only) Stat Exams 05/30/24 03:36 Draft MR lumbar spine wo/w con Routine Exams 05/31/24 11:02 Completed XR chest 1V Stat Exams 05/29/24 21:11 Completed BNP [B-Type Natriuretic Peptide] Stat Lab 05/29/24 21:55 Completed Blood Culture (Lab) Routine Lab 05/31/24 11:34 Results C-Reactive Protein Routine Lab 05/31/24 04:37 Completed CBC AM DRAW Lab 05/30/24 04:48 Completed CBC AM DRAW Lab 05/31/24 04:37 Completed CBC Stat Lab 05/29/24 21:55 Completed CMP [Comprehensive Metabolic Panel] Stat Lab 05/29/24 21:55 Completed Comprehensive Metabolic Panel AM DRAW Lab 05/30/24 04:48 Completed Comprehensive Metabolic Panel AM DRAW Lab 05/31/24 04:37 Completed Drug Screen,Urine Stat Lab 05/29/24 23:33 Completed Magnesium AM DRAW Lab 05/30/24 04:48 Completed Magnesium AM DRAW Lab 05/31/24 04:37 Completed PTT [Partial Thromboplastin Time] Stat Lab 05/29/24 21:55 Completed PTT [Partial Thromboplastin Time] Stat Lab 05/30/24 07:10 Completed Phosphorous AM DRAW Lab 05/31/24 04:37 Completed Sed Rate (ESR) Routine Lab 05/31/24 04:37 Completed Troponin I Q6H Lab 05/30/24 01:48 Completed Troponin I Q6H Lab 05/30/24 07:10 Completed Troponin I Stat Lab 05/29/24 21:55 Completed Urinalysis Routine Lab 05/31/24 11:42 Completed Urinalysis, C/S if Indicated Stat Lab 05/29/24 23:33 Completed Acetaminophen Tab [Tylenol Tab] Med 05/30/24 01:22 Discontinued 650 mg PO Q6H PRN Aspirin Chew Med 05/29/24 22:46 Discontinued 324 mg PO X1 ONE Bumetanide [Bumex] Med 05/30/24 01:45 Discontinued 1 mg PO BID Heparin Inj Med 05/30/24 12:35 Discontinued 2,000 unit IVP X1 ONE Heparin Inj Med 05/29/24 22:53 Discontinued 4,000 unit IV X1 ONE Heparin/D5w 25K 250 ML Ivpb [Heparin in D5w Ivpb] Med 05/29/24 23:00 Discontinued 25,000 unit in 250 ml IV 11.02 units/kg/hr Heparin/D5w 25K 250 ML Ivpb [Heparin in D5w Ivpb] Med 05/30/24 01:15 Discontinued 25,000 unit in 250 ml IV 12 units/kg/hr Lisinopril [Prinivil] Med 05/30/24 09:00 Discontinued 10 mg PO QDAY Melatonin Med 05/30/24 22:30 Discontinued 3 mg PO HS Metoprolol Succinate Xl [Toprol Xl] Med 05/30/24 09:00 Discontinued 25 mg PO QDAY Ondansetron Inj [Zofran Inj] Med 05/30/24 01:22 Discontinued 4 mg IV Q6H PRN Pantoprazole Inj [Protonix Inj] Med 05/31/24 09:00 Discontinued 40 mg IV QDAY Piperacillin/Tazo 2.25GM Inj [Zosyn Inj] 2.25 gm Med 05/31/24 22:00 Discontinued Sodium Chloride 0.9% (P) [Ns 0.9% (P)] 50 ml IV Q8HR Piperacillin/Tazo 2.25GM Inj [Zosyn Inj] 2.25 gm Med 05/31/24 11:30 Discontinued Sodium Chloride 0.9% (P) [Ns 0.9% (P)] 50 ml IV X1 Vancomycin Inj 1,500 mg Med 05/31/24 11:30 Discontinued Sodium Chloride 0.9% 500 ml [Ns] 500 ml IV X1 Vancomycin Pharmacy to Dose Med 05/31/24 11:15 Discontinued 1 each IV QDAY Code Status Routine Oth 05/30/24 01:20 Completed Oxygen Delivery PRN RT 05/30/24 01:22 Completed Vital Signs Vital signs: Vital Signs Temperature 98.3 F 05/29/24 21:00 Pulse Rate 86 05/29/24 21:00 Respiratory Rate 17 05/29/24 21:00 Blood Pressure 149/102 H 05/29/24 21:00 Pulse Oximetry (%) 96 05/29/24 21:00 Oxygen Delivery Method Room Air 05/29/24 21:00 Abdominal Pain MDM MDM Narrative MDM Narrative:: I, Amalia Snow am scribing for and in the presence of Dr. Delaney. Patient data External records reviewed:: [facility] previous records (Reviewed last admission record from 05/24/24 through 05/28/24, patient admitted for the following: dyspnea, pneumonia.) and EMS form Clinical information provided by:: patient and EMS Social determinants that could affect healthcare access:: substance use (methamphetamine) Patient has the following chronic illnesses:: CHF and low EF, methamphetamine use, dilated cardiomyopathy, hep C. Also old abdominal hernia. How is presenting disease/condition affected by chronic disease/condition?: exacerbated by Evaluation data The following diagnostics were reviewed and interpreted by me:: lab results and radiology exam(s) Lab and/or radiology exams considered but not ordered:: none Interpretation Summary: Procedure(s): XR chest 1V Accession Number(s): [id number] cc: Junior Strange NP; Aneesh Acuna MD; NO PRIMARY/FAMILY,PHYSICIAN~ Examination: PA chest single view Technique: Upright PA chest single view Exam date and time: May 29, 2024 2115 hrs. Comparison May 25, 2024 Indications: Shortness of breath today. Findings: Early heart failure Moderate enlargement left ventricle Prominent vascular congestion Early septal edema at the lung bases Impression: Early CHF Dictated By: Aneesh Acuna MD Medications / Prescriptions Medications or Prescriptions considered but not ordered:: none Medication administrations:: Medication Administration History Discontinued Medications Acetaminophen (Acetaminophen 325 Mg Tablet) 650 mg PO Q6H PRN PRN Reason: Pain 1-3 or Fever >100.3 Stop: 06/29/24 01:21 Aspirin (Aspirin 81 Mg Chew) 324 mg PO X1 ONE Stop: 05/29/24 22:47 Last Admin: 05/30/24 00:22 Dose: 324 mg Documented By: ISAIAH Bumetanide (Bumetanide 0.5 Mg Tablet) 1 mg PO BID JANETTE Stop: 06/29/24 01:44 Last Admin: 05/31/24 10:21 Dose: Not Given Documented By: ED Non-Admin Reason: Vital Signs Admin: 05/30/24 20:39 Dose: 1 mg Documented By: Admin: 05/30/24 11:11 Dose: 1 mg Documented By: Admin: 05/30/24 03:54 Dose: 1 mg Documented By: JOSÉ MIGUEL Heparin Sodium (Porcine) (Heparin Sod Inj 5000 Unit/Ml Vial) 4,000 unit IV X1 ONE; Protocol Stop: 05/29/24 22:54 Last Admin: 05/30/24 01:19 Dose: 4,000 unit Documented By: ISAIAH Co-signed By: JOSÉ MIGUEL Heparin Sodium (Porcine) (Heparin Sod Inj 5000 Unit/Ml Vial) 2,000 unit IVP X1 ONE; Protocol Stop: 05/30/24 12:36 Last Admin: 05/30/24 13:35 Dose: Not Given Documented By: DOMO Non-Admin Reason: Cancelled by Provider Heparin Sodium/Dextrose (Heparin In D5w Ivpb) 25,000 unit in 250 mls @ 9.997 mls/hr IV .Q24H JANETTE; Protocol Stop: 06/12/24 22:59 Last Admin: 05/30/24 01:17 Dose: Not Given Documented By: JOSÉ MIGUEL Non-Admin Reason: Discontinued Heparin Sodium/Dextrose (Heparin In D5w Ivpb) 25,000 unit in 250 mls @ 8.4 mls/hr IV .Q24H JANETTE; Protocol Stop: 06/12/24 22:59 Last Titration: 05/30/24 19:15 Dose: 0 units/kg/hr, 0 mls/hr Documented By: DELTA Co-signed By: ELLEN Admin: 05/30/24 01:20 Dose: 12 units/kg/hr, 8.4 mls/hr Documented By: ISAIAH Co-signed By: JOSÉ MIGUEL Piperacillin Sod/Tazobactam (Sod 2.25 gm/ Sodium Chloride) 50 mls @ 100 mls/hr IV Q8HR JANETTE Stop: 06/07/24 21:59 Piperacillin Sod/Tazobactam (Sod 2.25 gm/ Sodium Chloride) 50 mls @ 100 mls/hr IV X1 ONE Stop: 05/31/24 11:59 Last Infusion: 05/31/24 12:39 Dose: Infused Documented By: Admin: 05/31/24 11:46 Dose: 100 mls/hr Documented By: THIERRY Vancomycin HCl 1,500 mg/ (Sodium Chloride) 500 mls @ 178 mls/hr IV X1 ONE Stop: 05/31/24 14:18 Last Admin: 05/31/24 11:46 Dose: 178 mls/hr Documented By: THIERRY Lisinopril (Lisinopril 2.5 Mg Tablet) 10 mg PO QDAY [facility] Stop: 06/29/24 08:59 Last Admin: 05/31/24 10:21 Dose: Not Given Documented By: ED Non-Admin Reason: Vital Signs Admin: 05/30/24 11:11 Dose: 10 mg Documented By: DOMO Melatonin (Melatonin 3 Mg Tablet) 3 mg PO [facility] Stop: 06/29/24 22:29 Last Admin: 05/30/24 22:48 Dose: 3 mg Documented By: ELLEN Metoprolol Succinate (Metoprolol Succinate Xl 25 Mg Tabcr) 25 mg PO QDAY [facility] Stop: 06/29/24 08:59 Last Admin: 05/31/24 10:21 Dose: Not Given Documented By: ED Non-Admin Reason: Vital Signs Admin: 05/30/24 11:10 Dose: 25 mg Documented By: DOMO Ondansetron HCl (Ondansetron Inj 2 Mg/Ml Inj 2 Ml) 4 mg IV Q6H PRN; Protocol PRN Reason: NAUSEA OR VOMITING Stop: 06/29/24 01:21 Pantoprazole Sodium (Pantoprazole Inj 40 Mg Vial) 40 mg IV QDAY [facility] Stop: 06/30/24 08:59 Last Admin: 05/31/24 10:23 Dose: 40 mg Documented By: ED Pharmacy Consult (Vancomycin Pharmacy To Dose 1 Each Each) 1 each IV QDAY JANETTE Stop: 06/30/24 11:14 Last Admin: 05/31/24 12:32 Dose: 1 each Documented By: see above Consultations Consultation(s) initiated? (list below): Yes Consultation #1 (Physician, Specialty, Details): Hospitalist made aware of the patient?s HPI, PMHx, lab and/or radiology results. Treatment plan was discussed. Will admit for further evaluation and management. Accepts patient for admission. Diagnosis Differential diagnosis abdominal pain: abdominal pain, constipation and other (hernia) Most likely diagnosis given after review of the tests above:: See below Admission Indicated Admission indicated?: indicated Admission Request Was there a request for admission?: Yes Admission Attestation Admission request attestation: Discussed case with [] from Hospitalist service regarding admission. Discussed patients ED course, exam findings, labs, and radiology results. The Hospitalist [agrees,declines] to accept the patient for admission. Disposition Plan Disposition Plan: Admit Discharge Plan Plan Patient Disposition: Left Against Medical Advice
[2024-05-29 23:50] LABS: Collection Type, Urine Clean Catch; Squamous Epithelial Cell,Urine 0 /hpf (0-5); WBC,Urine 0 /hpf (0-5)
[2024-05-30] VITALS (24 sets, daily range): BP systolic 95–122; BP diastolic 59–91; PULSE 65–97; RESP 12–95; TEMP 36.6–37.1; O2SAT 92–100
[2024-05-30 00:19] LABS: Bilirubin,Urine Negative (Negative); Blood,Urine 2+ (Negative); Clarity,Urine Clear (Clear/Hazy); Color,Urine Yellow (Lt Yel-Yel); Culture Indicated,Urine Not Indicated; Glucose, Urine Negative (Negative); Ketones,Urine Negative (Negative); Leukocyte Esterase,Urine Negative (Negative); Nitrite,Urine Negative (Negative); Protein,Urine Trace (Neg - Trace); RBC,Urine 168 /hpf (0-3); Specific Gravity,Urine 1.023 (1.001-1.035); Urobilinogen,Urine Negative mg/dL (0.0-1.0)
[2024-05-30 00:20] LABS: B-Type Natriuretic Peptide 1060 pg/mL (0-100)
[2024-05-30] MEDS: ASPIRIN 81 MG CHEW 324 MG PO (00:22)
[2024-05-30 00:23] LABS: Partial Thromboplastin Time 27.3 Seconds (22.0-36.0)
[2024-05-30 00:38] LABS: Amphetamine/Methamp Scrn,U Negative (Negative); Barbiturate Screen,Urine Negative (Negative); Benzodiazepines Screen,Urine Positive (Negative); Benzoylecgonine Screen, Ur Negative (Negative); Fentanyl Screen,Urine Positive (Negative); THC Screen,Urine Negative (Negative)
[2024-05-30] MEDS: HEPARIN SOD INJ 5000 UNIT/ML VIAL 4000 UNIT IV (01:19)
[2024-05-30] MEDS: Heparin/D5w 25K 250 ML Ivpb 25,000 UNIT/250 ML BAG 8.4 UNIT IV (01:20)
[2024-05-30 01:34] LABS: Opiate Screen,Urine Negative (Negative)
[2024-05-30 02:37] LABS: Troponin I 5.785 ng/mL (0.0-0.045)
--- NOTE | 2024-05-30 03:36 | EKG_ITS ---
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
[2024-05-30] MEDS: BUMETANIDE 0.5 MG TABLET 1 MG PO ×3 (03:54→20:39)
[2024-05-30 05:33] LABS: Basophils # (Auto) 0.1 Thou/mm3 (0.0-0.2); Basophils % (Auto) 1 % (0-2.5); Eosinophils % (Auto) 10 % (0-10); Hematocrit 38.5 % (41.0-53.0); Hemoglobin 12.4 g/dL (13.5-16.0); Immature Granulocytes % (Auto) 1 % (0-0); Immature Granulocytes Auto 0.13 Thou/mm3 (0.00-0.00); Lymphocytes # (Auto) 2.1 Thou/mm3 (1.0-4.8); Lymphocytes % (Auto) 20 % (10-50); Mean Corpuscular HGB Conc 32.2 g/dl (31.0-37.0); Mean Corpuscular Hemoglobin 28.1 pg (25.0-35.0); Mean Corpuscular Volume 87 fL (80-100); Monocytes # (Auto) 1.3 Thou/mm3 (0.0-0.8); Monocytes % (Auto) 13 % (0-12); Neutrophils # (Auto) 5.7 Thou/mm3 (1.8-7.7); Neutrophils % (Auto) 56 % (37-80); Nucleated Red Blood Cell % 0 /100 WBC (0); RDW Standard Deviation 56.9 fL (35.1-43.9); Red Blood Count 4.42 Miln/mm3 (4.50-5.90); White Blood Count 10.3 Thou/mm3 (3.8-10.6)
[2024-05-30 05:55] LABS: Alanine Aminotransferase 33 U/L (10-49); Albumin, Serum 3.4 gm/dL (3.4-4.8); Albumin/Globulin Ratio 1.1 (1.2-2.2); Alkaline Phosphatase 124 U/L (46-116); Anion Gap 5 (7-16); Aspartate Amino Transferase 41 U/L (0-34); BUN/Creatinine Ratio 18 Ratio (12-20); Bilirubin,Total 0.8 mg/dL (0.3-1.2); Blood Urea Nitrogen 21 mg/dL (9-23); Calcium (Corrected) 8.5 mg/dL (8.5-10.1); Carbon Dioxide 32.2 mMol/L (20.0-31.0); Chloride 99 mMol/L (98-107); Creatinine (Component) 1.2 mg/dL (0.6-1.3); Estimated Creatinine Clearance 62.4 mL/min (>60); Glucose 100 mg/dL (74-106); Magnesium 1.6 mg/dL (1.6-2.6); Osmolality,Calculated 274 (275-295); Potassium 3.6 mMol/L (3.4-5.1); Sodium 136 mMol/L (136-145); Total Protein 6.4 gm/dL (5.7-8.2); eGFR > 60 See Note
--- NOTE | 2024-05-30 06:20 | PD.RESHP ---
Documentation for date of: 05/30/24 [facility] History of Present Illness History of present illness: The patient is a 64-year-old male with a past medical history of HFrEF with ejection fraction of 20-25%, methamphetamine abuse, dilated cardiomyopathy secondary to meth use, history of hep C, chronic left foot osteomyelitis, hypertension, hyperlipidemia, medical noncompliance and homelessness who presented to the ED on 05/30/2024 with complaints of abdominal pain that has been intermittent for about a week. Pain is located in the epigastric region as well as suprapubic, he denies nausea or vomiting, constipation or diarrhea or fever. He does endorse some pain/difficulty with urination and mentions that he has seen streaks of blood in the terminal phase. He denies chest pain, shortness of breath or palpitations. The patient was recently admitted to the hospital on 05/24/2024 for acute hypoxic respiratory failure when he presented with shortness of breath. Patient had to be intubated and upgraded to the ICU due to persistent desaturation. Repeat echocardiogram was done which showed that the left ventricular thrombus is not present anymore and showed dilated cardiomyopathy with ejection fraction 20 to 25%. Patient left AMA on 05/28/2024. ED course: In the ED, patient was afebrile and normotensive saturating 96% on room air. Labs showed WBC 8.7 Hgb 13.4 PLT 163. NA 130 6K4.0 bicarb 27.5 BUN 18 creatinine 1.2 glucose 104 AST 52 ALT P143 troponin 4.86, BNP 1060 UA showed 2+ blood and 168 RBCs and U-Tox was positive for fentanyl and benzos. The patient was started on IV heparin drip for management of NSTEMI Review of Systems Review of Systems Narrative Review of Systems: GENERAL: Denies fevers/chills or diaphoresis. HEENT: Denies headache or visual/hearing changes. Denies nasal discharge. NEURO: Denies unusual weakness or difficulty speaking. CARDIO: Denies chest pain or palpitations. PULM: Denies SOB, coughing, or wheezing. GI: Admits abdominal pain, denies N/V/C/D/reflux/gas, bright red blood per rectum or melena. Reports having BMs. URO: Denies burning/itching/pain/urinary changes. Admits streaks of blood in urine MSK/EXT/SKIN: Denies joint/skeletal/muscle pain, issues/changes in upper or lower extremities, itchiness, or superficial pain. PSYCH: Cooperative, pleasant mood & affect. 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 Eyes open, symmetrical, & clear CARDIO: No chest pain on palpation. Heart RRR, no obvious murmurs PULM: No noted coughing/dyspnea. Lungs CTA B/L GI: Abdomen soft, nondistended, mildly tender epigastrium on palpation. BSx4 URO/DIRECTOR REGULATORY COMPLIANCE:: No further abnormalities noted. SKIN/MSK/EXT: Bilateral pitting edema + Results: Labs 05/30/24 04:48 05/30/24 04:48 Labs: Short CBC 05/29/24 05/30/24 Range/Units 21:55 04:48 WBC 8.7 10.3 (3.8-10.6) Thou/mm3 Hgb 13.4 L 12.4 L (13.5-16.0) g/dL Hct 41.7 38.5 L (41.0-53.0) % Plt Count 163 D 91 L D (140-440) Thou/mm3 BMP 05/29/24 05/30/24 21:55 04:48 Sodium 136 136 Potassium 4.0 D 3.6 Chloride 98 99 Carbon Dioxide 27.5 32.2 H BUN 18 21 Creatinine 1.2 1.2 Glucose 104 100 Calcium 8.7 8.0 L Cardiac Enzymes 05/29/24 05/30/24 Range/Units 21:55 01:48 Troponin I 4.861 H* 5.785 H* D (0.0-0.045) ng/mL Liver Function 05/29/24 05/30/24 Range/Units 21:55 04:48 Total Bilirubin 0.9 0.8 (0.3-1.2) mg/dL AST 52 H 41 H (0-34) U/L ALT 42 33 (10-49) U/L Alkaline Phosphatase 143 H D 124 H (46-116) U/L Albumin 3.7 3.4 (3.4-4.8) gm/dL Urine 05/29/24 Range/Units 23:33 Urine Color Yellow (Lt Yel-Yel) Urine Clarity Clear (Clear/Hazy) Urine pH 7.0 (5.0-7.0) Ur Specific Mobile 1.023 (1.001-1.035) Urine Protein Trace (Neg - Trace) Urine Glucose (UA) Negative (Negative) Quality Measures Quality Measures none Medications Home Medications and Allergies Home Medications ?Medication ?Instructions ?Recorded ?Confirmed ?Type albuterol sulfate 90 mcg/actuation inhalation 05/30/24 History aerosol inhaler amoxicillin 875 mg tablet mg 05/30/24 History apixaban 5 mg tablet (Eliquis) 5 mg PO BID 05/30/24 05/30/24 History aspirin 81 mg chewable tablet 81 mg PO QDAY 05/30/24 05/30/24 History atorvastatin 40 mg tablet 40 mg PO 1XD 05/30/24 05/30/24 History bumetanide 2 mg tablet mg 05/30/24 History doxycycline hyclate 100 mg tablet mg 05/30/24 History metoprolol succinate 25 mg mg PO 05/30/24 History tablet,extended release 24 hr Allergies Allergy/AdvReac Type Severity Reaction Status Date / Time No Known Allergies Allergy Verified 05/21/24 19:15 Visit Medications Acetaminophen (Acetaminophen 325 Mg Tablet) 650 mg PO Q6H PRN PRN Reason: Pain 1-3 or Fever >100.3 Stop: 06/29/24 01:21 Bumetanide (Bumetanide 0.5 Mg Tablet) 1 mg PO BID [facility] Stop: 06/29/24 01:44 Last Admin: 05/30/24 03:54 Dose: 1 mg Heparin Sodium/Dextrose (Heparin In D5w Ivpb) 25,000 unit in 250 mls @ 8.4 mls/hr IV .Q24H [facility]; Protocol Stop: 06/12/24 22:59 Last Admin: 05/30/24 01:20 Dose: 12 units/kg/hr, 8.4 mls/hr Lisinopril (Lisinopril 2.5 Mg Tablet) 10 mg PO QDAY [facility] Stop: 06/29/24 08:59 Metoprolol Succinate (Metoprolol Succinate Xl 25 Mg Tabcr) 25 mg PO QDAY [facility] Stop: 06/29/24 08:59 Ondansetron HCl (Ondansetron Inj 2 Mg/Ml Inj 2 Ml) 4 mg IV Q6H PRN; Protocol PRN Reason: NAUSEA OR VOMITING Stop: 06/29/24 01:21 Discontinued Medications Aspirin (Aspirin 81 Mg Chew) 324 mg PO X1 ONE Stop: 05/29/24 22:47 Last Admin: 05/30/24 00:22 Dose: 324 mg Heparin Sodium (Porcine) (Heparin Sod Inj 5000 Unit/Ml Vial) 4,000 unit IV X1 ONE; Protocol Stop: 05/29/24 22:54 Last Admin: 05/30/24 01:19 Dose: 4,000 unit Heparin Sodium/Dextrose (Heparin In D5w Ivpb) 25,000 unit in 250 mls @ 9.997 mls/hr IV .Q24H JANETTE; Protocol Stop: 06/12/24 22:59 Last Admin: 05/30/24 01:17 Dose: Not Given Assessment & Plan Assessment Summary: The patient is a 64-year-old male with a past medical history of HFrEF with ejection fraction of 20-25%, methamphetamine abuse, dilated cardiomyopathy secondary to meth use, history of hep C, chronic left foot osteomyelitis, hypertension, hyperlipidemia, medical noncompliance and homelessness who presented to the ED on 05/30/2024 with complaints of abdominal pain that has been intermittent for about a week Admitting labs show elevated troponins and patient was admitted for management of NSTEMI #Elevated troponin levels #NSTEMI Patient presented with abdominal pain about a week duration. Pain is located in the epigastric region as well as suprapubic, he denies nausea or vomiting, constipation or diarrhea or fever. He also denies chest pain, shortness of breath or palpitations. Admitting labs showed troponin elevated at 4.861, EKG showed sinus rhythm with some deep Q waves in unipolar leads. Patient was started on IV heparin drip after bolus. Consulted cardiology Dr. Tsang states the patient needs no further management of elevated troponins as this is all related to drug use and recommends for hospitalist team to be aware that patient does not need cardiology follow-up for elevated troponin levels on any admission visit. Plan: -Hold heparin drip #History of HFrEF 20 to 25% #History of hypertension The patient has a history of HFrEF and on last admission had an echocardiogram done which showed dilated cardiomyopathy with severe global hypokinesis and ejection fraction 20 to 25% Patient denies chest pain or shortness of breath palpitations or cough. He does have pitting edema on examination Plan: -Resume home meds: Bumex 1 mg twice daily, metoprolol succinate 25 mg and add lisinopril 10 mg #Transaminitis #Possible cirrhosis Patient reports daily use of alcohol 6 pack beer for the last 3 years, says he has reduced his alcohol intake significantly. AST 41, ALP 124 Utox negative for ethyl alcohol Plan -Monitor CMP daily -Alcohol cessation advised Health maintenance: Dispo: Tele Diet: Cardiac DVT: Heparin Ragland: None Lines: Peripheral Med Rec: Pending, f/u PT: Not ordered Code: Full Case was discussed with attending physician, Dr Jaime Dorman MD PGY-1 Attending Provider Attestation/Addendum 64-year-old male patient was seen in ER bed 3. The patient was evaluated for shortness of breath. When I saw him he had constant coughing. He appears disheveled. He is in mild to moderate distress. He denies chest pain but he Coughing. Patient Has CHF Exacerbation. He Has History of Substance Abuse. Chest x-ray showed increased pulmonary vascular markings cardiomegaly. EKG showed sinus rhythm with first-degree AV block. Patient will be admitted for further treatment and monitoring.
[2024-05-30 07:47] LABS: Troponin I 5.675 ng/mL (0.0-0.045)
[2024-05-30 08:07] LABS: Partial Thromboplastin Time 44.8 Seconds (22.0-36.0)
--- NOTE | 2024-05-30 08:10 | PC.NURSE ---
Pt alert GCS 15, denies any pain or discomfort at this time. VSS on tele, hep gtt infusing.Call pineda in reach. Pt in agreement w/poc
[2024-05-30] MEDS: METOPROLOL SUCCINATE XL 25 MG TABCR PO (11:10)
[2024-05-30] MEDS: Lisinopril 2.5 MG TABLET 10 MG PO (11:11)
[2024-05-30 12:34] LABS: Platelet Count 341 Thou/mm3 (140-440)
--- NOTE | 2024-05-30 13:33 | ESCONSULT_ITS ---
<Statement entered by Misael Tsang MD - 06/02/24 22:45> The patient is evaluated by me along with resident physician PGY 2 Dr. 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 History of nonischemic cardiomyopathy chronic systolic heart failure HFrEF ejection fraction 20 to 25% due to methamphetamine use and toxic cardiomyopathy many times hospitalized with troponin elevation active user methamphetamine and various agents has some abdominal pain vague symptoms came to the hospital EKG is not impressive he has no chest pain though troponin levels elevated appears with type II troponin due to chronic methamphetamine use and cardiomyopathy. Agree with the medical management no need for any coronary angiogram cardiac catheterization since clinical picture does not support ACS. I evaluated the patient along with resident physician agree with the treatment plan recommendation as documented by Dr. Barone will continue to follow the patient. The patient did have apical thrombus resolved no need for further anticoagulation at this time. 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 Patient denied fever, chills, NVD, chest pain/pressure, palpitations or other associated symptoms. Patient was recently admitted at [facility] on 05/24/24 for AHRF, during that visit patient required intubation after which patient left AMA on 05/28/24. In ED today, vitals was significant for BP 149/102. Labs showed NA 130, K4, BUN 18 creatinine 1.2, AST 52, ALT 42, ALP 143 troponin 4.86 (which increased to 5.7 before downtrending), BNP 1060. Urinalysis was significant for 2+ blood and 168 RBCs. Toxicology was positive for fentanyl and benzos. Patient was started on IV heparin ggt and cardiology was consulted for further management. Medical Hx: HFrEF, dilated cardiomyopathy, HTN, HLD, osteomyelitis, methamphetamine abuse Medcations: ASA 81mg Qday, Apixaban 5mg BID, Metoprolol XL 25 mg Qday, Bumetanide 2mg Qday Surgical Hx: Multiple hernia repair Social: Homeless, history of alcohol, heroine, fentanyl and methamphetamine abuse Allergies: NKDA Code Status: Full Code 05/30/24: Patient not complaining of chest pain/pressure, palpitations or other associate symptoms. Elevated troponin is type II demand ischemia secondary to polysubstance abuse. There is no need for anticoagulation/heparin, especially in the setting of no chest pain and no EKG changes compared to previous admissions. Patient stated that he is normally compliant with his medications. Patient was educated on adherence and abstinence. Continue Bumex 1 mg twice daily and metoprolol XL 25 mg daily. cc:: cc: Salo Sandoval MD Review of Systems Review of Systems Systems Reviewed: All systems reviewed, normal except as documented Exam Vital Signs Temp Pulse Resp BP Pulse Ox O2 Del Method 98.8 F 79 12 114/88 H 94 L Room Air 05/30/24 06:12 05/30/24 11:11 05/30/24 10:51 05/30/24 11:11 05/30/24 10:51 05/30/24 05:46 Narrative Exam Constitutional: Disheveled, well-nourished, in no acute distress, lying in bed HEENT: NCAT, EOMI, reactive round pupils b/l, patent nares b/l, moist mucous membranes Lung: CTAB, no wheezing, no rhonchi, mild crackles of lower lobe b/l wit L > R Heart: Regular S1S2, no murmurs, gallops, or rubs Abdomen: Soft, non-distended, non-tender, bowel sounds present throughout Extremities: No cyanosis, clubbing, + trace edema, LE pulses present b/l Neurologic: No focal sensory or motor deficits noted, AOx3, appropriate affect Skin: Warm, dry, no lesions or rashes noted Results Labs 05/30/24 04:48 05/30/24 04:48 Labs: Short CBC 05/29/24 05/30/24 Range/Units 21:55 04:48 WBC 8.7 10.3 (3.8-10.6) Thou/mm3 Hgb 13.4 L 12.4 L (13.5-16.0) g/dL Hct 41.7 38.5 L (41.0-53.0) % Plt Count 163 D 341 D (140-440) Thou/mm3 BMP 05/29/24 05/30/24 21:55 04:48 Sodium 136 136 Potassium 4.0 D 3.6 Chloride 98 99 Carbon Dioxide 27.5 32.2 H BUN 18 21 Creatinine 1.2 1.2 Glucose 104 100 Calcium 8.7 8.0 L Cardiac Enzymes 05/29/24 05/30/24 05/30/24 Range/Units 21:55 01:48 07:10 Troponin I 4.861 H* 5.785 H* D 5.675 H* (0.0-0.045) ng/mL Liver Function 05/29/24 05/30/24 Range/Units 21:55 04:48 Total Bilirubin 0.9 0.8 (0.3-1.2) mg/dL AST 52 H 41 H (0-34) U/L ALT 42 33 (10-49) U/L Alkaline Phosphatase 143 H D 124 H (46-116) U/L Albumin 3.7 3.4 (3.4-4.8) gm/dL Urine 05/29/24 Range/Units 23:33 Urine Color Yellow (Lt Yel-Yel) Urine Clarity Clear (Clear/Hazy) Urine pH 7.0 (5.0-7.0) Ur Specific [place] 1.023 (1.001-1.035) Urine Protein Trace (Neg - Trace) Urine Glucose (UA) Negative (Negative) Quality Measures Quality Measures none Medications Home Medications and Allergies Home Medications ?Medication ?Instructions ?Recorded ?Confirmed ?Type albuterol sulfate 90 mcg/actuation inhalation 05/30/24 History aerosol inhaler amoxicillin 875 mg tablet mg 05/30/24 History apixaban 5 mg tablet (Eliquis) 5 mg PO BID 05/30/24 05/30/24 History aspirin 81 mg chewable tablet 81 mg PO QDAY 05/30/24 05/30/24 History atorvastatin 40 mg tablet 40 mg PO 1XD 05/30/24 05/30/24 History bumetanide 2 mg tablet mg 05/30/24 History doxycycline hyclate 100 mg tablet mg 05/30/24 History metoprolol succinate 25 mg mg PO 05/30/24 History tablet,extended release 24 hr Allergies Allergy/AdvReac Type Severity Reaction Status Date / Time No Known Allergies Allergy Verified 05/21/24 19:15 Visit Medications Acetaminophen (Acetaminophen 325 Mg Tablet) 650 mg PO Q6H PRN PRN Reason: Pain 1-3 or Fever >100.3 Stop: 06/29/24 01:21 Bumetanide (Bumetanide 0.5 Mg Tablet) 1 mg PO BID [facility] Stop: 06/29/24 01:44 Last Admin: 05/30/24 11:11 Dose: 1 mg Lisinopril (Lisinopril 2.5 Mg Tablet) 10 mg PO QDAY [facility] Stop: 06/29/24 08:59 Last Admin: 05/30/24 11:11 Dose: 10 mg Metoprolol Succinate (Metoprolol Succinate Xl 25 Mg Tabcr) 25 mg PO QDAY [facility] Stop: 06/29/24 08:59 Last Admin: 05/30/24 11:10 Dose: 25 mg Ondansetron HCl (Ondansetron Inj 2 Mg/Ml Inj 2 Ml) 4 mg IV Q6H PRN; Protocol PRN Reason: NAUSEA OR VOMITING Stop: 06/29/24 01:21 Discontinued Medications Aspirin (Aspirin 81 Mg Chew) 324 mg PO X1 ONE Stop: 05/29/24 22:47 Last Admin: 05/30/24 00:22 Dose: 324 mg Heparin Sodium (Porcine) (Heparin Sod Inj 5000 Unit/Ml Vial) 4,000 unit IV X1 ONE; Protocol Stop: 05/29/24 22:54 Last Admin: 05/30/24 01:19 Dose: 4,000 unit Heparin Sodium (Porcine) (Heparin Sod Inj 5000 Unit/Ml Vial) 2,000 unit IVP X1 ONE; Protocol Stop: 05/30/24 12:36 Heparin Sodium/Dextrose (Heparin In D5w Ivpb) 25,000 unit in 250 mls @ 9.997 mls/hr IV .Q24H JANETTE; Protocol Stop: 06/12/24 22:59 Last Admin: 05/30/24 01:17 Dose: Not Given Heparin Sodium/Dextrose (Heparin In D5w Ivpb) 25,000 unit in 250 mls @ 8.4 mls/hr IV .Q24H JANETTE; Protocol Stop: 06/12/24 22:59 Last Admin: 05/30/24 01:20 Dose: 12 units/kg/hr, 8.4 mls/hr Assessment & Plan Plan 64 years old homeless male patient with significant medical history for HFrEF (20-25%), 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 #Troponinemia, type II demand ischemia ED lab showed troponin elevated at 4.861-->5.7 before downtrending Patient denied chest pain/pressure, palpitations, NVD or other symptoms EKG showed sinus rhythm with some deep Q waves in unipolar leads Initially in ED, patient was started on IV heparin ggt Plan: ?Discontinued heparin ggt ?Troponin downtrending, no need to further follow #Hx of HFrEF 20 to 25% #Non-ischemic dilated cardiomyopathy #Polysubstance abuse #Hx of hypertension 05/24/24 echocardiogram indicated dilated cardiomyopathy with severe global hypokinesis and ejection fraction 20 to 25% Plan: -Continue home medications Bumex 1 mg twice daily, metoprolol succinate 25 mg and add lisinopril 10 mg #Hernia #Hematuria #Transaminitis -Management per primary team This patient care was discussed with my attending Dr. Sharan Johnson MD PGY-2 Disclaimer: Minor errors in aircraft stress analyst may be present since this note was dictated by speech recognition software.
--- NOTE | 2024-05-30 14:57 | PC.CC ---
Pt Migueilto Sheikh is a 64 yr old male admitted to hospitalist services for elevated troponin levels, NSTEMI. IT SOFTWARE ENGINEER CC met with pt at bedside to complete initial assessment. At time of encounter pt is noted to be alert and oriented to person, place and situation. Pt expressed understanding admission orders. Pt able to confirm demographic information. Pt reports being homeless for last 5 yrs. Pt identifies his sister Svetlana Cruz [phone] as surrogate DM. Pt with chronic hx of poly substance abuse. At baseline pt reports requiring a cane to support ambulation. Pt reports that at time he requires assist with his ADLs. Per pt his sister helps with his ADLs when he is unable to complete them. Pt states he is not diabetic and is not on dialysis. Pt does not require supplemental O2. Pt is followed by [facility] for primary care. At D/c pt inquired about SNF placement. IT SOFTWARE ENGINEER CC educated pt that SNF placement can only be offered if pt meets criteria for requested services. If pt does not meet criteria for SNF placement, pt could benefit from homeless resources and support. At this time pt has declined information on Advance Directive.
--- NOTE | 2024-05-30 16:16 | ESPR_ITS ---
<Statement entered by Guerrero Araiza MD - 06/14/24 09:37> I reviewed above note and agree with findings and plans. I have also personally examined the patient with medicine team and went over assessment and plan with medical team including qa intern and resident physician. <Statement entered by Hans Su MD - 05/30/24 16:40> Patient was seen and examined at bedside. Patient is a poor historian, patient was complaining of lower abdominal pain, he mentions that the pain started at the epigastric area and now it is in his right groin area next to the hernia. Patient reported that he thinks he had a bowel movement yesterday patient denied any nausea or vomiting denied any fever however he reported that he has some a little bit of blood coming with urine . Patient reported that he has multiple hernia surgeries. He denied any abdominal distention, any diarrhea, and he mentions that the pain comes and goes over time. Patient was asking for food and ice cream when we went to see the patient and he was lying in bed comfortably. Cardiology saw the patient and he recommended no intervention for his troponin elevation as it may be caused by drug use. Heparin drip was discontinued for that reason and also because of the patient complaining of hematuria. Of note urine analysis was negative for any hematuria at this time. Ordered for the patient CT scan will keep the patient under observation for today a CT scan was negative and patient symptoms is improving we will discharge the patient. - Patient's plan and care discussed with my attending, Dr. Jose G Su MD Internal Medicine PGY-2 Documentation for date of: 05/30/24 Subjective Subjective Interval history: Patient examined at bedside today. No acute overnight events. Says that he has some abdominal pain, may think it is related to his hernia, says he has had this hernia for a long time. Says he has gotten operations on his hernia before. Does not think it is reducible. Says that he had seen blood in his urine. Requesting some ice cream at this time. No other complaints at this time Exam Vital Signs Temp Pulse Resp BP Pulse Ox O2 Del Method 98.2 F 67 17 112/80 97 Room Air 05/30/24 16:00 05/30/24 16:00 05/30/24 16:00 05/30/24 16:00 05/30/24 16:00 05/30/24 16:00 Narrative Exam General: AAOx3, NAD, disheveled man, HEENT: Conjunctiva clear, poor dentention Cardiovascular: S1, S2, radial pulses +2 bilat, RRR Pulmonary: CTAB bilat no cough, no wheezing GI: Slight tenderness to palpitation of abdomen, no guarding, rigidity, rebound tenderness or distension, some bowel sounds heard : Inguinal hernia appreciated, non-reducible, R side Extremities: +2 pitting edema in lower extremities bilaterally, Neuro: AAOx3, no focal motor or sensory deficits in the UE or LE bilat Psych: Good judgement, thought and behavior Objective Labs 05/30/24 04:48 05/30/24 04:48 Labs: Laboratory Results - last 24 hr 05/29/24 05/29/24 05/30/24 21:55 23:33 01:48 WBC 8.7 RBC 4.80 Hgb 13.4 L Hct 41.7 MCV 87 MCH 27.9 MCHC 32.1 RDW Std Deviation 56.1 H Plt Count 163 D Neut % (Auto) 60 Lymph % (Auto) 16 Harris % (Auto) 11 Eos % (Auto) 12 H Baso % (Auto) 0 Neut # (Auto) 5.2 Lymph # (Auto) 1.4 Harris # (Auto) 0.9 H Eos # (Auto) 1.0 H Baso # (Auto) 0.0 Immature Gran # (Auto) 0.14 H Absolute Nucleated RBC 0.00 Immature Gran % 2 H Nucleated RBC % 0 APTT 27.3 Sodium 136 Potassium 4.0 D Chloride 98 Carbon Dioxide 27.5 Anion Gap 11 BUN 18 Creatinine 1.2 Estim Creat Clear Calc Not Performed. eGFR > 60 BUN/Creatinine Ratio 15 Glucose 104 Calculated Osmolality 273 L Calcium 8.7 Corrected Calcium 8.9 Magnesium Total Bilirubin 0.9 AST 52 H ALT 42 Alkaline Phosphatase 143 H D Troponin I 4.861 H* 5.785 H* D B-Natriuretic Peptide 1060 H* Total Protein 7.3 Albumin 3.7 Globulin 3.6 H Albumin/Globulin Ratio 1.0 L Ur Collection Type Clean Catch Urine Color Yellow Urine Clarity Clear Urine pH 7.0 Ur Specific [place] 1.023 Urine Protein Trace Urine Glucose (UA) Negative Urine Ketones Negative Urine Blood 2+ A Urine Nitrite Negative Urine Bilirubin Negative Urine Urobilinogen (Auto) Negative Ur Leukocyte Esterase Negative Urine RBC 168 H Urine WBC 0 Ur Squamous Epith Cells 0 Urine Bacteria None Ur Culture Indicated? Not Indicated Urine Opiates Screen Negative Urine Fentanyl Screen Positive A Ur Barbiturates Screen Negative U Amphetamin/Meth Scrn Negative U Benzodiazepines Scrn Positive A U Cocaine Metab Screen Negative U Marijuana (THC) Screen Negative 05/30/24 05/30/24 04:48 07:10 WBC 10.3 RBC 4.42 L Hgb 12.4 L Hct 38.5 L MCV 87 MCH 28.1 MCHC 32.2 RDW Std Deviation 56.9 H Plt Count 341 D Neut % (Auto) 56 Lymph % (Auto) 20 Harris % (Auto) 13 H Eos % (Auto) 10 Baso % (Auto) 1 Neut # (Auto) 5.7 Lymph # (Auto) 2.1 Harris # (Auto) 1.3 H Eos # (Auto) 1.0 H Baso # (Auto) 0.1 Immature Gran # (Auto) 0.13 H Absolute Nucleated RBC 0.00 Immature Gran % 1 H Nucleated RBC % 0 APTT 44.8 H D Sodium 136 Potassium 3.6 Chloride 99 Carbon Dioxide 32.2 H Anion Gap 5 L BUN 21 Creatinine 1.2 Estim Creat Clear Calc 62.4 eGFR > 60 BUN/Creatinine Ratio 18 Glucose 100 Calculated Osmolality 274 L Calcium 8.0 L Corrected Calcium 8.5 Magnesium 1.6 Total Bilirubin 0.8 AST 41 H ALT 33 Alkaline Phosphatase 124 H Troponin I 5.675 H* B-Natriuretic Peptide Total Protein 6.4 Albumin 3.4 Globulin 3.0 Albumin/Globulin Ratio 1.1 L Ur Collection Type Urine Color Urine Clarity Urine pH Ur Specific [place] Urine Protein Urine Glucose (UA) Urine Ketones Urine Blood Urine Nitrite Urine Bilirubin Urine Urobilinogen (Auto) Ur Leukocyte Esterase Urine RBC Urine WBC Ur Squamous Epith Cells Urine Bacteria Ur Culture Indicated? Urine Opiates Screen Urine Fentanyl Screen Ur Barbiturates Screen U Amphetamin/Meth Scrn U Benzodiazepines Scrn U Cocaine Metab Screen U Marijuana (THC) Screen Quality Measures Quality Measures none Assessment & Plan Assessment Current Active Medications: Generic Name Dose Route Start Last Admin Trade Name Freq PRN Reason Stop Dose Admin Acetaminophen 650 mg 05/30/24 01:22 Acetaminophen 325 Mg Tablet PO 06/29/24 01:21 Q6H PRN Pain 1-3 or Fever >100.3 Bumetanide 1 mg 05/30/24 01:45 05/30/24 11:11 Bumetanide 0.5 Mg Tablet PO 06/29/24 01:44 1 mg BID JANETTE Administration Lisinopril 10 mg 05/30/24 09:00 05/30/24 11:11 Lisinopril 2.5 Mg Tablet PO 06/29/24 08:59 10 mg QDAY JANETTE Administration Metoprolol Succinate 25 mg 05/30/24 09:00 05/30/24 11:10 Metoprolol Succinate Xl 25 Mg Tabcr PO 06/29/24 08:59 25 mg QDAY JANETTE Administration Ondansetron HCl 4 mg 05/30/24 01:22 Ondansetron Inj 2 Mg/Ml Inj 2 Ml IV 06/29/24 01:21 Q6H PRN NAUSEA OR VOMITING Protocol Plan Assessment Summary: The patient is a 64-year-old male with a past medical history of HFrEF with ejection fraction of 20-25%, methamphetamine abuse, dilated cardiomyopathy secondary to meth use, history of hep C, chronic left foot osteomyelitis, hypertension, hyperlipidemia, medical noncompliance and homelessness who presented to the ED on 05/30/2024 with complaints of abdominal pain that has been intermittent for about a week Admitting labs show elevated troponins and patient was admitted for management of NSTEMI #Abdominal pain #History of hernia, R side Patient reports that he has had previous hernia repairs in the past Says that his abdomen is tender, has had bowel movement recently Pain could be related to hernia, could be obstructing or strangulating Most likely inguinal hernia, non reducible, R side Plan: ?*CT abdomen pelvis #Hematuria DDx: Stone, obstruction, malignancy Patient had hematuria on last visit on 05/23 RBCs ~160 Patient reports he has not seen the blood urine since Unsure if pt had blood in urine before or after heparin drip started Plan: ?As above ?*UA tomorrow #Elevated troponin levels, resolved #NSTEMI, type II 2/2 demand ischemia, resolved Patient presented with abdominal pain about a week duration. Pain is located in the epigastric region as well as suprapubic, he denies nausea or vomiting, constipation or diarrhea or fever. He also denies chest pain, shortness of breath or palpitations. Admitting labs showed troponin elevated at 4.861, EKG showed sinus rhythm with some deep Q waves in unipolar leads. Patient was started on IV heparin drip after bolus. Consulted cardiology Dr. Tsang states the patient needs no further management of elevated troponins as this is all related to drug use and recommends for hospitalist team to be aware that patient does not need cardiology follow-up for elevated troponin levels on any admission visit. Heparin drip stopped Plan: ?Discontinued heparin drip ?Not continuing to trend troponins at this time #History of HFrEF 20 to 25% #History of hypertension The patient has a history of HFrEF and on last admission had an echocardiogram done which showed dilated cardiomyopathy with severe global hypokinesis and ejection fraction 20 to 25% Patient denies chest pain or shortness of breath palpitations or cough. He does have pitting edema on examination Plan: -Resume home meds: Bumex 1 mg twice daily, metoprolol succinate 25 mg and add lisinopril 10 mg #Transaminitis #Possible cirrhosis Patient reports daily use of alcohol 6 pack beer for the last 3 years, says he has reduced his alcohol intake significantly. AST 41, ALP 124 Utox negative for ethyl alcohol Plan -Monitor CMP daily -Alcohol cessation advised #Health Maintenance Disposition: Telemetry DVT prophylaxis: Heparin GI prophylaxis: Protonix Diet: Cardiac CODE STATUS: Full Patient seen and care discussed with my senior resident, Dr. Su , and my attending physician, Dr. Jose G Duron, PGY-1
--- NOTE | 2024-05-30 19:15 | PC.NURSE ---
ASSUME CARE FOR THIS PT AT THIS TIME AND GOT REPORT FROM JENNIFER WHO REPORTS THAT THE HEPARIN DROP WAS DC SINCE THE MORING. PT IS A GCS OF 15, A7O X 4. PT GIVEN FOOD AND UPDATED ON PLAN OF CARE.
--- NOTE | 2024-05-30 20:50 | PC.NURSE ---
Assumed care of pt. Pt is awake, alert, no signs of distress noted. Pt stated he was hungry, sandwich and juice provided. Tolerating well. Bed locked in lowest position, call light within reach.
--- NOTE | 2024-05-30 22:34 | PC.NURSE ---
Pt c/o inability to sleep. Provider called and asked for sleep aid. Order received.
[2024-05-30] MEDS: MELATONIN 3 MG TABLET PO (22:48)
[2024-05-31] VITALS (9 sets, daily range): BP systolic 95–110; BP diastolic 68–78; PULSE 63–80; RESP 10–93; TEMP 36.6–36.9; O2SAT 94–97
--- NOTE | 2024-05-31 04:38 | PC.NURSE ---
Rounded on pt. Pt awake, asking for snacks. Crackers and pudding provided along with fresh water. Pt tolerating well. Pt denies any pain. No signs of distress noted.
[2024-05-31 05:18] LABS: Basophils # (Auto) 0.1 Thou/mm3 (0.0-0.2); Basophils % (Auto) 1 % (0-2.5); Eosinophils # (Auto) 0.6 Thou/mm3 (0.0-0.5); Eosinophils % (Auto) 6 % (0-10); Hemoglobin 13.4 g/dL (13.5-16.0); Immature Granulocytes % (Auto) 1 % (0-0); Immature Granulocytes Auto 0.07 Thou/mm3 (0.00-0.00); Lymphocytes # (Auto) 1.5 Thou/mm3 (1.0-4.8); Lymphocytes % (Auto) 17 % (10-50); Mean Corpuscular HGB Conc 32.7 g/dl (31.0-37.0); Mean Corpuscular Volume 86 fL (80-100); Monocytes # (Auto) 1.1 Thou/mm3 (0.0-0.8); Monocytes % (Auto) 12 % (0-12); Neutrophils # (Auto) 5.8 Thou/mm3 (1.8-7.7); Neutrophils % (Auto) 64 % (37-80); Nucleated Red Blood Cell % 0 /100 WBC (0); RDW Standard Deviation 55.7 fL (35.1-43.9); Red Blood Count 4.78 Miln/mm3 (4.50-5.90)
[2024-05-31 05:36] LABS: Platelet Count 157 Thou/mm3 (140-440)
[2024-05-31 05:58] LABS: Alanine Aminotransferase 24 U/L (10-49); Albumin, Serum 3.5 gm/dL (3.4-4.8); Albumin/Globulin Ratio 1.1 (1.2-2.2); Alkaline Phosphatase 114 U/L (46-116); Anion Gap 8 (7-16); Aspartate Amino Transferase 22 U/L (0-34); BUN/Creatinine Ratio 21 Ratio (12-20); Bilirubin,Total 0.8 mg/dL (0.3-1.2); Blood Urea Nitrogen 23 mg/dL (9-23); Calcium 8.2 mg/dL (8.3-10.6); Calcium (Corrected) 8.6 mg/dL (8.5-10.1); Carbon Dioxide 28.7 mMol/L (20.0-31.0); Chloride 98 mMol/L (98-107); Creatinine (Component) 1.1 mg/dL (0.6-1.3); Estimated Creatinine Clearance 68.1 mL/min (>60); Globulin 3.2 gm/dL (2.3-3.5); Glucose 83 mg/dL (74-106); Magnesium 1.6 mg/dL (1.6-2.6); Osmolality,Calculated 272 (275-295); Potassium 4.2 mMol/L (3.4-5.1); Sodium 135 mMol/L (136-145); Total Protein 6.7 gm/dL (5.7-8.2); eGFR > 60 See Note
--- NOTE | 2024-05-31 06:41 | PC.NURSE ---
Pt refusing to wear brief or gown. Threw both on the floor. Asked for more juice, provided pt with juice and water.
--- NOTE | 2024-05-31 07:10 | XR_ITS ---
Examination: CT abdomen and pelvis without contrast. Coronal 3-D reconstructions. Sagittal 2-D reconstructions. Date and time of exam:May 31, 2024 0716 hrs. Comparison March 23, 2024 Indications: Generalized abdominal pain beginning 2 days ago CTDI: vol (mGy): 5.52 DLP: (mGycm): 325 Technique: Axial images of the abdomen have been obtained, 3 mm slice thickness Intravenous contrast material has not been administered. Low dose protocols were performed. One or more of the following dose reduction techniques were used; automated exposure control, adjustment of the mA and/or KV according to patient size, use of iterative reconstruction technique. Findings: Moderate enlargement cardiac contour with vascular congestion COPD with blebs in the lower lung zone Liver is irregular in contour Small gallstones Spleen is not enlarged Retrocardiac small gastric hernia No pancreatic mass. No renal or ureteral calculi, no hydronephrosis Aorta normal size Abundant stool throughout the entire colon No pericecal inflammatory change No diverticulitis Urinary bladder is contracted Abnormal thickening of the urinary bladder wall up to 11 mm Transverse prostate dimension 4.0 cm Significant osteopenia Chronic compression L1 vertebral body Diffuse lumbar degenerative disc disease, advanced at the lower 3 lumbar levels Grade 1 spondylolisthesis L5 on S1 Cortical bone destruction involving contiguous margins L3-L4, L4-L5 Moderate narrowing hip joints Impression: COPD Moderate cardiomegaly with vascular congestion Cirrhosis versus primary hepatocellular disease Recommend hepatobiliary sonography follow-up to confirm cholelithiasis Abundant stool throughout the entire colon Abnormal urinary bladder wall thickening up to 11 mm, differential would include cystitis, urinary tract outflow obstruction secondary to prostatomegaly, urinary bladder cancer not excluded, recommend urinary bladder sonography follow-up Diffuse lumbar degenerative disc disease, advanced at the lower 2 lumbar levels Suspicious for osteomyelitis discitis L3-L4, L4-L5, recommend MRI lumbar spine follow-up pre and post intravenous contrast
--- NOTE | 2024-05-31 08:30 | PC.LAC ---
Breakfast tray given, pt. states where the fuck have you been with it. I apologized and stated sir would you like your breakfast, pt. stated while standing next to the tray naked put it on the tray. Pt. states he's leaving. Pt. refusing to put on a gown or brief. Pt. refusing his vitals to be taken. Pt. removed blood pressure cuff, removed heart monitor and states he is leaving. Pt. cussing at nurse and I left pt. room, informed pt. I will not take his abuse.
[2024-05-31 08:34] LABS: Sed Rate (ESR) 36 mm/hr (0-20)
[2024-05-31 08:36] LABS: C-Reactive Protein 1.8 mg/dL (0.0-0.9)
--- NOTE | 2024-05-31 09:02 | PC.NURSE ---
Dr. Duron is bedside talking with pt., Dr. Duron informs pt. we need his vitals, Pt. states he will allow for his vitals to be taken.
--- NOTE | 2024-05-31 09:57 | ESPR_ITS ---
<Statement entered by Guerrero Araiza MD - 06/14/24 09:36> I reviewed above note and agree with findings and plans. I have also personally examined the patient with medicine team and went over assessment and plan with medical team including buyer intern and resident physician. <Statement entered by Hans Su MD - 05/31/24 16:36> Patient was seen and examined at bedside. Vitally the patient is stable. We ordered for the patient abdominal CT scan which revealed urinary bladder thickening suspicious of chronic inflammatory changes or due to bladder cancer, we noticed that previous urine analysis for the patient showed hematuria. For that reason we will recommend the patient to follow-up in outpatient settings with urologist to rule out your bladder malignancy. CT scan also showed that the patient has suspicious degenerative changes in the lumbar spine, osteomyelitis cannot be ruled out for that reason was ordered for the patient lumbar spine MRI with and without contrast. We started the patient on Zosyn and vancomycin were ordered for the patient ESR and CRP in which ESR came back 35 and CRP of 1.8. If the MRI results came back positive for osteomyelitis we will consult ID for oral antibiotic recommendations as the patient has history of drug abuse we will not be able to discharge him on with a PICC line. - Patient's plan and care discussed with my attending, Dr. Jose G Su MD Internal Medicine PGY-2 Documentation for date of: 05/31/24 Subjective Subjective Interval history: Patient examined at bedside today. No acute overnight events. Says that his abdominal pain is still there, does not experiencing any back pain at this time. Is wondering if that he has something going on in his abdomen. No other complaints at this time Exam Vital Signs Temp Pulse Resp BP Pulse Ox O2 Del Method 98.0 F 69 19 110/75 94 L Room Air 05/31/24 09:06 05/31/24 09:06 05/31/24 09:06 05/31/24 09:06 05/31/24 09:06 05/31/24 09:06 Narrative Exam General: AAOx3, NAD, disheveled man with chest tattoos HEENT: Conjunctiva clear, poor dentention Cardiovascular: S1, S2, radial pulses +2 bilat, RRR Pulmonary: CTAB bilat no cough, no wheezing GI: Slight tenderness to palpitation of abdomen, no guarding, rigidity, rebound tenderness or distension, some bowel sounds heard : Inguinal hernia appreciated, non-reducible, R side Extremities: +2 pitting edema in lower extremities bilaterally, Neuro: AAOx3, no focal motor or sensory deficits in the UE or LE bilat Psych: Uncoooperative at times Objective Labs 05/31/24 04:37 05/31/24 04:37 Labs: Laboratory Results - last 24 hr 05/30/24 05/31/24 04:48 04:37 WBC 9.0 RBC 4.78 Hgb 13.4 L Hct 41.0 MCV 86 MCH 28.0 MCHC 32.7 RDW Std Deviation 55.7 H Plt Count 341 D 157 D Neut % (Auto) 64 Lymph % (Auto) 17 [place] % (Auto) 12 Eos % (Auto) 6 Baso % (Auto) 1 Neut # (Auto) 5.8 Lymph # (Auto) 1.5 [place] # (Auto) 1.1 H Eos # (Auto) 0.6 H Baso # (Auto) 0.1 Immature Gran # (Auto) 0.07 H Absolute Nucleated RBC 0.00 Immature Gran % 1 H Nucleated RBC % 0 ESR 36 H Sodium 135 L Potassium 4.2 D Chloride 98 Carbon Dioxide 28.7 Anion Gap 8 BUN 23 Creatinine 1.1 Estim Creat Clear Calc 68.1 eGFR > 60 BUN/Creatinine Ratio 21 H Glucose 83 Calculated Osmolality 272 L Calcium 8.2 L Corrected Calcium 8.6 Phosphorus 3.0 Magnesium 1.6 Total Bilirubin 0.8 AST 22 ALT 24 Alkaline Phosphatase 114 C-Reactive Prot, Quant 1.8 H Total Protein 6.7 Albumin 3.5 Globulin 3.2 Albumin/Globulin Ratio 1.1 L Quality Measures Quality Measures none Assessment & Plan Assessment Current Active Medications: Generic Name Dose Route Start Last Admin Trade Name Freq PRN Reason Stop Dose Admin Acetaminophen 650 mg 05/30/24 01:22 Acetaminophen 325 Mg Tablet PO 06/29/24 01:21 Q6H PRN Pain 1-3 or Fever >100.3 Bumetanide 1 mg 05/30/24 01:45 05/30/24 20:39 Bumetanide 0.5 Mg Tablet PO 06/29/24 01:44 1 mg BID JANETTE Administration Lisinopril 10 mg 05/30/24 09:00 05/30/24 11:11 Lisinopril 2.5 Mg Tablet PO 06/29/24 08:59 10 mg QDAY JANETTE Administration Melatonin 3 mg 05/30/24 22:30 05/30/24 22:48 Melatonin 3 Mg Tablet PO 06/29/24 22:29 3 mg HS JANETTE Administration Metoprolol Succinate 25 mg 05/30/24 09:00 05/30/24 11:10 Metoprolol Succinate Xl 25 Mg Tabcr PO 06/29/24 08:59 25 mg QDAY JANETTE Administration Ondansetron HCl 4 mg 05/30/24 01:22 Ondansetron Inj 2 Mg/Ml Inj 2 Ml IV 06/29/24 01:21 Q6H PRN NAUSEA OR VOMITING Protocol Pantoprazole Sodium 40 mg 05/31/24 09:00 Pantoprazole Inj 40 Mg Vial IV 06/30/24 08:59 QDAY JANETTE Plan Assessment Summary: The patient is a 64-year-old male with a past medical history of HFrEF with ejection fraction of 20-25%, methamphetamine abuse, 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 #History of cholelithiasis #Abdominal pain #History of hernia, R side Patient reports that he has had previous hernia repairs in the past Says that his abdomen is tender, has had bowel movement recently Pain could be related to hernia, could be obstructing or strangulating Most likely inguinal hernia, non reducible, R side CT shows no change in inguinal hernia or strangulation Will need to get further workup outpatient setting if this is causing patient's symptoms At this point patient does not have any right upper quadrant tenderness, and patient has not presented with fever chills or white count, will hold off on gallbladder ultrasound Plan: ?Pain management #Hematuria DDx: Stone, obstruction, malignancy Patient had hematuria on last visit on 05/23 RBCs ~160 Patient reports he has not seen the blood urine since Unsure if pt had blood in urine before or after heparin drip started CT abdomen pelvis showed some bladder wall thickening concerning for possible cystitis Repeat urine shows no red blood cells, however the previous 2 urine analyses did show red blood cells Concerning for malignancy, especially considering smoking history Plan: ? Will need outpatient urology and cystoscopy #Multiple lumbar disc bulges #Osteomyelitis discitis, ruled out CT abdomen and pelvis showed concern for osteomyelitis discitis and lumbar spine MRI of the lumbar spine with and without contrast showed no enhancement for osteomyelitis discitis Will not treat at this time Patient does not have back pain at this time Plan: ?Will discontinue Zosyn and vancomycin ?Will need outpatient workup if patient presents with back pain #Elevated troponin levels, resolved #NSTEMI, type II 2/2 demand ischemia, resolved Patient presented with abdominal pain about a week duration. Pain is located in the epigastric region as well as suprapubic, he denies nausea or vomiting, constipation or diarrhea or fever. He also denies chest pain, shortness of breath or palpitations. Admitting labs showed troponin elevated at 4.861, EKG showed sinus rhythm with some deep Q waves in unipolar leads. Patient was started on IV heparin drip after bolus. Consulted cardiology Dr. Tsang states the patient needs no further management of elevated troponins as this is all related to drug use and recommends for hospitalist team to be aware that patient does not need cardiology follow-up for elevated troponin levels on any admission visit. Heparin drip stopped Plan: ?Discontinued heparin drip ?Not continuing to trend troponins at this time #History of HFrEF 20 to 25% #History of hypertension The patient has a history of HFrEF and on last admission had an echocardiogram done which showed dilated cardiomyopathy with severe global hypokinesis and ejection fraction 20 to 25% Patient denies chest pain or shortness of breath palpitations or cough. He does have pitting edema on examination Plan: -Resume home meds: Bumex 1 mg twice daily, metoprolol succinate 25 mg and add lisinopril 10 mg #Transaminitis #Possible cirrhosis Patient reports daily use of alcohol 6 pack beer for the last 3 years, says he has reduced his alcohol intake significantly. AST 41, ALP 124 Utox negative for ethyl alcohol Plan -Monitor CMP daily -Alcohol cessation advised #Health Maintenance Disposition: Telemetry DVT prophylaxis: Heparin GI prophylaxis: Protonix Diet: Cardiac CODE STATUS: Full Patient seen and care discussed with my senior resident, Dr. Su , and my attending physician, Dr. Jose G Duron, PGY-1
[2024-05-31] MEDS: PANTOPRAZOLE INJ 40 MG VIAL IV (10:23)
--- NOTE | 2024-05-31 11:02 | XR_ITS ---
Examination: MRI lumbar spine, without intravenous contrast. MRI lumbar spine , with intravenous contrast. Exam date and time: May 31, 2024 1307 hours INDICATIONS: Back pain abdominal pain today, CT abdomen pelvis suspicious for osteomyelitis discitis L3-L4, L4-L5 levels Technique: Multiple axial, sagittal and coronal images of the lumbar spine have been obtained with the Siemens high-resolution 1.5 Cassi MRI scanner. Images obtained included T2 weighted fat suppressed sagittal sections, TR 3500, TE 46, T2 weighted coronal fat suppressed images, TR 3050, TE 84, T2-weighted transverse fat suppressed images, TR 30-60, TE 63, proton density transverse images, TR 4720, TE 46, and T1 weighted coronal images, TR 560, TE 13. Axial, sagittal and coronal images are obtained post intravenous injection 14 cc gadolinium. Findings: Advanced disc narrowing lower 3 lumbar levels Grade 1 anterolisthesis L4 on L5 Chronic compression fracture, moderate L1 No acute lumbar fracture Diffuse lumbar disc desiccation L5-S1 4 mm central lumbar disc bulge L4-L5 3 mm central lumbar disc bulge L2-L3 3 mm central lumbar disc bulge L2-L3 no disc protrusion L1-L2 no disc protrusion Postcontrast images do not enhancement diagnostic for osteomyelitis or discitis IMPRESSION: Osteomyelitis discitis is not confirmed at the L3-L4, L4-L5 level
[2024-05-31] MEDS: PIPERACILLIN/TAZO 2.25GM INJ 2.25 GM in SODIUM CHLORIDE 0.9% (P) 50 ML IV (11:46)
[2024-05-31] MEDS: Vancomycin Inj 1,500 MG in SODIUM CHLORIDE 0.9% 500 ML 500 ML 178 MG IV (11:46)
[2024-05-31 14:48] LABS: Collection Type, Urine Clean Catch
[2024-05-31 14:54] LABS: Bilirubin,Urine Negative (Negative); Blood,Urine Negative (Negative); Clarity,Urine Clear (Clear/Hazy); Color,Urine Lt-Yellow (Lt Yel-Yel); Glucose, Urine Negative (Negative); Ketones,Urine Negative (Negative); Leukocyte Esterase,Urine Negative (Negative); Nitrite,Urine Negative (Negative); Protein,Urine Negative (Neg - Trace); RBC,Urine 2 /hpf (0-3); Squamous Epithelial Cell,Urine < 1 /hpf (0-5); Urobilinogen,Urine Negative mg/dL (0.0-1.0); WBC,Urine 1 /hpf (0-5)
--- NOTE | 2024-05-31 16:09 | PC.NURSE ---
PT SEEN ATTEMPTING TO PULL OUT HIS IV. STATING IM LEAVING. I ATTEMPTED TO PERSUADE PT TO STAY BUT HE STATES HE DONT CARE AND IS JUST LEAVING . RISK GIVEN UP UNTIL . PT CONTINUES TO WANT TO LEAVE. IVL REMOVED AND PT REFUSED TO SIGN AMA FORM AND WALKED OUT.
--- NOTE | 2024-05-31 17:38 | ESPR_ITS ---
<Statement entered by Misael Tsang MD - 06/02/24 22:34> The patient is evaluated by me personally appears to be doing better today does not complain of any shortness of breath chest pain he did have troponin elevation possibly type II troponin since clinically did not have any anginal symptoms. 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 He does have HFrEF but apical thrombus resolved on recent echo. Evaluated the patient and agree with the treatment plan recommendation as documented by PGY [address] Dr. Barone. Chances are patient may sign out AMA and noncompliant patient with poor prognosis Documentation for date of: 05/31/24 Subjective Subjective Interval history: 64 years old homeless male patient with significant medical history for HFrEF (20-25%), nonischemic dilated cadiomyopathy with severe global hypokineis, chronic left ventricle apical thrombus (has resolved), methamphetamine abuse, HTN, ostomyelitis and medication non-compliance came to ED for intermittent epigastric and subrapubic pain that started x1 week ago. Patient denied fever, chills, NVD, chest pain/pressure, palpitations or other associated symptoms. Patient was recently admitted at [facility] on 05/24/24 for AHRF, during that visit patient required intubation after which patient left AMA on 05/28/24. In ED today, vitals was significant for BP 149/102. Labs showed NA 130, K4, BUN 18 creatinine 1.2, AST 52, ALT 42, ALP 143 troponin 4.86 (which increased to 5.7 before downtrending), BNP 1060. Urinalysis was significant for 2+ blood and 168 RBCs. Toxicology was positive for fentanyl and benzos. Patient was started on IV heparin ggt and cardiology was consulted for further management. 05/30/24: Patient not complaining of chest pain/pressure, palpitations or other associate symptoms. Elevated troponin is type II demand ischemia secondary to polysubstance abuse. There is no need for anticoagulation/heparin, especially in the setting of no chest pain and no EKG changes compared to previous admissions. Patient stated that he is normally compliant with his medications. Patient was educated on adherence and abstinence. Continue Bumex 1 mg twice daily and metoprolol XL 25 mg daily. 05/31/24: No significant overnight events. Yesterday's abdomen pelvis CT indicated COPD, cardiomegaly with vascular congestion, thickening of bladder, obstructive uropathy secondary to prostatomegaly and diffuse lumbar degenerative disc disease suspicious for osteomyelitis discitis of L3-L5. Further MRI imaging of lumbar spine was completed which ruled out osteomyelitis. Continue management with Bumex and metoprolol XL. Exam Vital Signs Temp Pulse Resp BP Pulse Ox O2 Del Method 98.4 F 67 22 H 95/70 96 Room Air 05/31/24 14:51 05/31/24 14:51 05/31/24 14:51 05/31/24 14:51 05/31/24 14:51 05/31/24 14:51 Narrative Exam Constitutional: Disheveled, well-nourished, in no acute distress, lying in bed HEENT: NCAT, EOMI, reactive round pupils b/l, patent nares b/l, moist mucous membranes Lung: CTAB, no wheezing, no rhonchi, no crackles Heart: Regular S1S2, no murmurs, gallops, or rubs Abdomen: Soft, non-distended, non-tender, bowel sounds present throughout Extremities: No cyanosis, clubbing, + trace edema, LE pulses present b/l Neurologic: No focal sensory or motor deficits noted, AOx3, appropriate affect Skin: Warm, dry, no lesions or rashes noted Objective Labs 05/31/24 04:37 05/31/24 04:37 Labs: Laboratory Results - last 24 hr 05/31/24 05/31/24 04:37 11:42 WBC 9.0 RBC 4.78 Hgb 13.4 L Hct 41.0 MCV 86 MCH 28.0 MCHC 32.7 RDW Std Deviation 55.7 H Plt Count 157 D Neut % (Auto) 64 Lymph % (Auto) 17 [place] % (Auto) 12 Eos % (Auto) 6 Baso % (Auto) 1 Neut # (Auto) 5.8 Lymph # (Auto) 1.5 [place] # (Auto) 1.1 H Eos # (Auto) 0.6 H Baso # (Auto) 0.1 Immature Gran # (Auto) 0.07 H Absolute Nucleated RBC 0.00 Immature Gran % 1 H Nucleated RBC % 0 ESR 36 H Sodium 135 L Potassium 4.2 D Chloride 98 Carbon Dioxide 28.7 Anion Gap 8 BUN 23 Creatinine 1.1 Estim Creat Clear Calc 68.1 eGFR > 60 BUN/Creatinine Ratio 21 H Glucose 83 Calculated Osmolality 272 L Calcium 8.2 L Corrected Calcium 8.6 Phosphorus 3.0 Magnesium 1.6 Total Bilirubin 0.8 AST 22 ALT 24 Alkaline Phosphatase 114 C-Reactive Prot, Quant 1.8 H Total Protein 6.7 Albumin 3.5 Globulin 3.2 Albumin/Globulin Ratio 1.1 L Ur Collection Type Clean Catch Urine Color Lt-Yellow Urine Clarity Clear Urine pH 8.0 H Ur Specific [place] 1.020 Urine Protein Negative Urine Glucose (UA) Negative Urine Ketones Negative Urine Blood Negative Urine Nitrite Negative Urine Bilirubin Negative Urine Urobilinogen (Auto) Negative Ur Leukocyte Esterase Negative Urine RBC 2 Urine WBC 1 Ur Squamous Epith Cells < 1 Urine Bacteria None Quality Measures Quality Measures none Assessment & Plan Plan 64 years old homeless male patient with significant medical history for HFrEF (20-25%), 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 #Hx of HFrEF 20 to 25% #Non-ischemic dilated cardiomyopathy #Polysubstance abuse #Hx of hypertension 05/24/24 echocardiogram indicated dilated cardiomyopathy with severe global hypokinesis and ejection fraction 20 to 25% Plan: -Continue home medications Bumex 1 mg twice daily, metoprolol succinate 25 mg and add lisinopril 10 mg #Troponinemia, type II demand ischemia, resolved ED lab showed troponin elevated at 4.861-->5.7 before downtrending Patient denied chest pain/pressure, palpitations, NVD or other symptoms EKG showed sinus rhythm with some deep Q waves in unipolar leads Initially in ED, patient was started on IV heparin ggt Plan: ?Discontinued heparin ggt ?Troponin downtrending, no need to further follow #Hernia #Hematuria #Transaminitis -Management per primary team This patient care was discussed with my attending Dr. Sharan Johnson MD PGY-2 Disclaimer: Minor errors in radiology interventional physician may be present since this note was dictated by speech recognition software.
--- NOTE | 2024-06-01 16:42 | ESDS_ITS ---
<Statement entered by Hans Su MD - 06/02/24 13:05> 64-year-old male patient with past medical history of HFrEF with ejection fraction of 20 to 25% secondary to methamphetamine abuse, history of current methamphetamine abuse, dilated cardiomyopathy, hep C, chronic left foot osteomyelitis, hypertension, hyperlipidemia, who presented to the ED due to abdominal pain found to have elevated troponin, cardiology team was consulted and they recommended no cardiac intervention at this time as it caused by troponin induced cardiac injury. CT scan was done showing possible osteomyelitis of the lumbar vertebrae. However we also noticed there was multiple episodes of urinalysis which showed high RBCs counts also we noted that the patient has urinary bladder thickening. We started the patient on broad- spectrum antibiotics however we did an MRI which ruled out anulus to myelitis. For that reason, we will stop his antibiotics and we were planning to do further workup to evaluate his abdominal pain and possible to rule out any malignancy especially that the patient found to have pulmonary nodule. However, overnight patient decided to leave the hospital AMA and refused to wait for the night team for further management. - Patient's plan and care discussed with my attending, Dr. Lesly Su MD Internal Medicine PGY-2 Planned Discharge Date 06/01/24 DS: Providers Provider Date of admission: 05/31/24 14:24 Primary care physician: Physician No Primary/Family Admitting Provider: Salo Sandoval MD Attending Provider on Admission: Guerrero Araiza MD Consults: 05/30/24 01:41 Consult to Cardiology Routine Comment: Consulting Provider: Misael Tsang 05/31/24 11:03 Consult to Infectious Diseases Routine Comment: Consulting Provider: William Allen Attending Provider on DC: Gabriel Grace MD Discharging Provider: Gabriel Grace MD DS: Diagnosis Problem List Completed Was Problem List Reviewed/Reconciled?: Yes Hospital Course Hospital Course Hospital course: 64-year-old male with a past medical history of HFrEF with ejection fraction of 20-25%, methamphetamine abuse, 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 Patient is a frequent flyer in the hospital who endorses medication noncompliance and is homeless. In the ED, patient was afebrile and normotensive saturating 96% on room air. Labs showed WBC 8.7 Hgb 13.4 PLT 163. NA 130 6K4.0 bicarb 27.5 BUN 18 creatinine 1.2 glucose 104 AST 52 ALT P143 troponin 4.86, BNP 1060 UA showed 2+ blood and 168 RBCs and U-Tox was positive for fentanyl and benzos. The patient was started on IV heparin drip for management of NSTEMI. Cardiology was spoken to who had recommended to discontinue heparin drip for patient and likely related to type II NSTEMI. While on the floors, patient's abdominal pain was evaluated with CT scan which showed inguinal hernia, however there was concern for osteomyelitis discitis. Patient was then started on broad-spectrum antibiotics blood cultures were started and also MRI of lumbar spine was done. Osteomyelitis discitis was ruled out from MRI of the spine. Patient was going to be discharged the following day however patient left AMA. Return to ER if symptoms worsen Take medicines as prescribed #History of cholelithiasis #Abdominal pain #History of hernia, R side #Hematuria #Multiple lumbar disc bulges #Osteomyelitis discitis, ruled out #Elevated troponin levels, resolved #NSTEMI, type II 2/2 demand ischemia, resolved #History of HFrEF 20 to 25% #History of hypertension #Transaminitis Patient seen and care discussed with my senior resident, Dr. Su, and my attending physician, Dr. Lesly Duron, PGY-1 Time Spent with Patient Time attestation: Total time spent providing and/or coordinating discharge services: Time spent: Greater than 30 minutes Exam Vital Signs Temp Pulse Resp BP Pulse Ox O2 Del Method 98.4 F 67 22 H 95/70 96 Room Air 05/31/24 14:51 05/31/24 14:51 05/31/24 14:51 05/31/24 14:51 05/31/24 14:51 05/31/24 14:51 Narrative Exam General: AAOx3, NAD, disheveled man with chest tattoos HEENT: Conjunctiva clear, poor dentention Cardiovascular: S1, S2, radial pulses +2 bilat, RRR Pulmonary: CTAB bilat no cough, no wheezing GI: Slight tenderness to palpitation of abdomen, no guarding, rigidity, rebound tenderness or distension, some bowel sounds heard : Inguinal hernia appreciated, non-reducible, R side Extremities: +2 pitting edema in lower extremities bilaterally, Neuro: AAOx3, no focal motor or sensory deficits in the UE or LE bilat Psych: Uncoooperative at times Discharge Plan Plan Patient Disposition: Left Against Medical Advice Prescriptions/Referrals Prescriptions/Med Rec: No Action albuterol sulfate 90 mcg/actuation HFA aerosol inhaler 1 inh inhalation QID PRN (Reason: shortness of breath or wheezing) Qty: 8.5 0RF doxycycline hyclate 100 mg Tablet 100 mg PO BID 7 Days Qty: 14 0RF amoxicillin 875 mg tablet 875 mg PO BID 7 Days Qty: 14 0RF atorvastatin 40 mg tablet 40 mg PO 1XD bumetanide 2 mg tablet amoxicillin 875 mg tablet aspirin 81 mg tablet,chewable 81 mg PO QDAY metoprolol succinate 25 mg tablet extended release 24 hr PO albuterol sulfate 90 mcg/actuation HFA aerosol inhaler INHALATION doxycycline hyclate 100 mg tablet Eliquis 5 mg tablet 5 mg PO BID doxycycline monohydrate 100 mg capsule 100 mg PO BID Qty: 14 0RF promethazine 6.25 mg/5 mL syrup 6.25 mg PO TID PRN (Reason: cough) Qty: 120 0RF Patient/Caregiver Discharge Instructions Print Language: Turkish Quality Discharge Quality Measures VTE prophylaxis (Heparin) MD Attestestation MD Attestation I have examined the patient, reviewed labs and imaging findings, discussed the case with the resident(s), and reviewed entered orders. I agree with the plan of care as outlined in this note. Dr. Grace
== END 2024-05-31 15:55 | disposition left against medical advice (07) | DRG 190 ==
LOC: SERX 21:31 → SERHOLD 05-30 09:30
PROVIDERS: Registered Nurse General Practice; Admitting Provider Internal Medicine; Emergency Provider Emergency Medicine; Visit Provider Student in an Organized Health Care Education/Training Program
DX: I21.A1 Myocardial infarction type 2 (principal); F15.10 Other stimulant abuse, uncomplicated; N13.8 Other obstructive and reflux uropathy; I42.0 Dilated cardiomyopathy; F10.10 Alcohol abuse, uncomplicated; F11.10 Opioid abuse, uncomplicated; R91.1 Solitary pulmonary nodule; I44.0 Atrioventricular block, first degree; I50.22 Chronic systolic (congestive) heart failure; M51.369 Other intervertebral disc degeneration, lumbar region without mention of lumbar back pain or lower extremity pain; B19.20 Unspecified viral hepatitis C without hepatic coma; J44.9 Chronic obstructive pulmonary disease, unspecified; K40.90 Unilateral inguinal hernia, without obstruction or gangrene, not specified as recurrent; N40.1 Benign prostatic hyperplasia with lower urinary tract symptoms; I10 Essential (primary) hypertension; E78.5 Hyperlipidemia, unspecified; R31.9 Hematuria, unspecified; N32.89 Other specified disorders of bladder; Z53.29 Procedure and treatment not carried out because of patient's decision for other reasons; Z59.00 Homelessness unspecified; Z79.899 Other long term (current) drug therapy; Z79.82 Long term (current) use of aspirin; Z79.01 Long term (current) use of anticoagulants; Z91.148 Patient's other noncompliance with medication regimen for other reason
CPT/HCPCS: 36415; 71045; 72158; 74176; 80053; 80307; 81001; 83735; 83880; 84100; 84484; 85025; 85652; 85730; 86140; 87040; 93005; 96365; 96366; 96368; 96375; 99285; A9579; G0378; J1643; J1644; J2470; J2543; J3370; J7040; J7050; A9270

== ENCOUNTER 2024-06-11 12:38 | Emergency (ER) | payer MEDICAID, SELFPAY ==
[2024-06-11 12:41] VITALS: BP 163/104; PULSE 91; RESP 17; TEMP 36.6; O2SAT 99
[2024-06-11 12:43] VITALS: BMI 25.1
--- NOTE | 2024-06-11 12:45 | XR_ITS ---
Examination: PA lateral chest 2 views Technique: Upright PA lateral chest 2 views Exam date and time: June 03, 2024 1256 hrs. Comparison May 29, 2024 Indications: Onset chest pain today. Findings: Mild CHF Moderate enlargement cardiac contour Prominent vascular congestion with early septal edema at the lung bases Consider superimposed pneumonia at both lung bases Moderate hyperexpansion on the lateral view with blunting of the posterior costophrenic angles Impression: Mild heart failure Suspicious for superimposed pneumonia at the lung bases
--- NOTE | 2024-06-11 12:45 | EKG_ITS ---
[facility] Test Date: 2024-06-11 Pat Name: NELDA LEON Department: Room: - Gender: Male Key Ringer: : [id number] Requested By: Renard Zaman Order Number: [id number] Reading MD: Renard Zaman Measurements Intervals [place] Rate: 90 P: 46 MS: 216 QRS: 246 QRSD: 110 T: 69 QT: 405 QTc: 496 Interpretive Statements SINUS RHYTHM WITH FIRST DEGREE AV BLOCK WITH OCCASIONAL VENTRICULAR PREMATURE COMPLEXES POSSIBLE LEFT ATRIAL ENLARGEMENT [-0.1mV P WAVE IN V1/V2] INDETERMINATE AXIS PATTERN CONSISTENT WITH PULMONARY DISEASE Compared to ECG 05/30/2024 04:08:19 Ventricular premature complex(es) now present Indeterminate axis now present Myocardial infarct finding no longer present /store/S0/[id number]
[2024-06-11 13:00] VITALS: BP 161/111; PULSE 76
[2024-06-11] MEDS: Furosemide 40 MG TABLET PO (13:00)
[2024-06-11 13:46] LABS: Alanine Aminotransferase 39 U/L (10-49); Albumin, Serum 4.1 gm/dL (3.4-4.8); Albumin/Globulin Ratio 1.2 (1.2-2.2); Alkaline Phosphatase 175 U/L (46-116); Anion Gap 8 (7-16); Aspartate Amino Transferase 47 U/L (0-34); BUN/Creatinine Ratio 21 Ratio (12-20); Bilirubin,Total 1.2 mg/dL (0.3-1.2); Blood Urea Nitrogen 23 mg/dL (9-23); Calcium 8.6 mg/dL (8.3-10.6); Calcium (Corrected) 8.6 mg/dL (8.5-10.1); Carbon Dioxide 18.3 mMol/L (20.0-31.0); Chloride 108 mMol/L (98-107); Creatinine (Component) 1.1 mg/dL (0.6-1.3); Estimated Creatinine Clearance 68.7 mL/min (>60); Globulin 3.4 gm/dL (2.3-3.5); Glucose 112 mg/dL (74-106); Osmolality,Calculated 272 (275-295); Sodium 134 mMol/L (136-145); Total Protein 7.5 gm/dL (5.7-8.2); eGFR > 60 See Note
[2024-06-11 13:51] LABS: Troponin I 0.088 ng/mL (0.0-0.045)
--- NOTE | 2024-06-11 14:02 | EDNOTE_ITS ---
ED Medical Clearance RME/HPI General Chief complaint: Medical Clearance Stated complaint: medical clearance Time Seen by Provider: 06/11/24 12:42 Arrival date/time: 06/11/24 12:38 RME / HPI RME / HPI Narrative: 64-year-old male with a history of dilated cardiomyopathy (EF of 20 to 25%) due to long-term and current methamphetamine use who presents to the emergency department by police department for medical clearance. He has continuous and ongoing chest pain and lower extremity edema of which they are requesting clearance for. He notes having chest pain and lower extremity edema for as long as he can remember. He does admit to methamphetamine use this morning. He has been staying at the [facility] and has been able to take his diuretics and regular medicines for the last 3 days. He denies sick contacts. He has a right inguinal hernia that he is currently seeing surgery for potential repair, however has been out for several weeks and he is unable to reduce it. Related Information Home Medications ?Medication ?Instructions ?Recorded ?Confirmed albuterol sulfate 90 mcg/actuation inhalation 05/30/24 aerosol inhaler amoxicillin 875 mg tablet mg 05/30/24 apixaban 5 mg tablet (Eliquis) 5 mg PO BID 05/30/24 05/30/24 aspirin 81 mg chewable tablet 81 mg PO QDAY 05/30/24 05/30/24 atorvastatin 40 mg tablet 40 mg PO 1XD 05/30/24 05/30/24 bumetanide 2 mg tablet mg 05/30/24 doxycycline hyclate 100 mg tablet mg 05/30/24 metoprolol succinate 25 mg mg PO 05/30/24 tablet,extended release 24 hr Previous Rx's ?Medication ?Instructions ?Recorded doxycycline monohydrate 100 mg 100 mg PO BID #14 caps 05/16/24 capsule promethazine 6.25 mg/5 mL oral 6.25 mg (5 mL) PO TID PRN cough 05/16/24 syrup #120 mL albuterol sulfate 90 mcg/actuation 1 inh inhalation QID PRN shortness 05/19/24 aerosol inhaler of breath or wheezing #8.5 grams Allergies Allergy/AdvReac Type Severity Reaction Status Date / Time No Known Allergies Allergy Verified 06/11/24 12:46 Review of Systems Review of Systems Systems Reviewed: All systems reviewed, normal except as documented ED Exam Narrative Physical exam: GENERAL APPEARANCE: AxOx4, generally well-appearing, no acute distress. HEENT: NC, AT. MMM. EOMI, clear conjunctiva, oropharynx clear. NECK: Supple without lymphadenopathy. No stiffness or restricted ROM. HEART: Normal rate and regular rhythm, normal S1/S1, no m/r/g LUNGS: CTAB, moving air well. No crackles or wheezes are heard. ABDOMEN: Soft, nontender, nondistended with good bowel sounds heard, right groin with a 8 cm soft inguinal hernia that is easily reducible BACK: No midline C/T/L spine pain or deformity, No CVAT, no obvious deformity. EXTREMITIES: Without cyanosis, clubbing or edema. MUSCULOSKELETAL: FROM of all major joints, no chest tenderness NEUROLOGICAL: Grossly nonfocal. Alert and oriented, moving all 4 extremities. CN not formally tested but appear grossly intact. Observed to ambulate with normal gait. Skin: Warm and dry without any rash. Course Quality Measures none Orders Category Date Time Status EKG (ED ONLY) *Do not use* NOW Care 06/11/24 12:45 Completed EKG (ED Only) Stat Exams 06/11/24 12:45 Draft XR chest 2V Stat Exams 06/11/24 12:45 Taken CBC Stat Lab 06/11/24 12:55 Received CMP [Comprehensive Metabolic Panel] Stat Lab 06/11/24 12:55 Completed Troponin I Stat Lab 06/11/24 12:55 Completed Furosemide [Lasix] Med 06/11/24 12:43 Discontinued 40 mg PO X1 ONE Nitroglycerin Oint 2% [Nitro-paste Oint 2%] Med 06/11/24 13:12 Discontinued 2 inch TOP X1 ONE Vital Signs Vital signs: Vital Signs Temperature 97.8 F 06/11/24 12:41 Pulse Rate 91 06/11/24 12:41 Respiratory Rate 17 06/11/24 12:41 Blood Pressure 163/104 H 06/11/24 12:41 Pulse Oximetry (%) 99 06/11/24 12:41 Oxygen Delivery Method Room Air 06/11/24 12:41 SpO2 99% on room air, patient is not hypoxic Procedures -ED EKG Interpretation #1: Date of EK06/11/24 Time of EK:21 Rate: 90 Interpretation: Interpreted by me EKG Impression: Normal sinus rhythm, No acute ST-T changes, Normal intervals and Normal axis Additional EKG comment: Left atrial enlargement Medical Clearance MDM Narrative MDM Narrative:: Mr. Sheikh has a history of dilated cardiomyopathy secondary to continued methamphetamine use, known by me for previous visits, who presents for his chronic chest pain and lower extremity edema for medical clearance. There appears to be no acute changes in his symptomatology. Due to his fragile cardiac status, workup was initiated. EKG shows no signs of acute ischemia, and laboratory results were significant significant for a borderline elevated tropo lukasz at 0.088 which is significantly lower than his baseline he was well over 5 on his last admission 2 weeks ago. Heart score of 4, he is appropriate for outpatient follow-up. Chest x-ray shows mild pulmonary congestion, otherwise no other acute cardiopulmonary findings, mild cardiomegaly, no bony abnormalities. Radiology interpretation is pending. He continues to using methamphetamines. Given these are all chronic symptomatology, his troponin is actually lower than his normal he is appropriate for outpatient follow-up. He has been cited out by police department and be discharged home. He has a right inguinal hernia that is reducible on my exam. There is no signs of incarceration or strangulation. Patient data External records reviewed:: [facility] previous records Clinical information provided by:: patient Social determinants that could affect healthcare access:: substance use Patient has the following chronic illnesses:: Dilated cardiomyopathy How is presenting disease/condition affected by chronic disease/condition?: caused by Evaluation data The following diagnostics were reviewed and interpreted by me:: lab results, radiology exam(s) and EKG tracing(s) Lab and/or radiology exams considered but not ordered:: None Interpretation Summary: None Medications / Prescriptions Medications or Prescriptions considered but not ordered:: None Medication administrations:: Medication Administration History Discontinued Medications Furosemide (Furosemide 40 Mg Tablet) 40 mg PO X1 ONE Stop: 06/11/24 12:44 Last Admin: 06/11/24 13:00 Dose: 40 mg Documented By: GM Nitroglycerin (Nitroglycerin Oint 2% 1 Inch Packet) 2 inch TOP X1 ONE Stop: 06/11/24 13:13 Last Admin: 06/11/24 13:25 Dose: Not Given Documented By: JEREMY Non-Admin Reason: Discontinued Above Consultations Consultation(s) initiated? (list below): No Diagnosis Medical Clearance Differential Diagnosis: inguinal hernia and other (Chest pain, ACS, AMI, CHF exacerbation) Most likely diagnosis given after review of the tests above:: See below Admission Indicated Admission indicated?: not indicated Admission Request Was there a request for admission?: No Disposition Plan Disposition Plan: Discharge Discharge Attestation Discharge Attestation: The patient and all family members were given an opportunity to ask questions and understood the discharge instructions. Discharge instructions specifically effects, indications for sooner follow up or return to the emergency department, and the expected course of current diagnosis. Patient condition: Stable Discharge Plan Plan Patient Disposition: HOME (Self Care) Prescriptions/Referrals Prescriptions/Med Rec: No Action albuterol sulfate 90 mcg/actuation HFA aerosol inhaler 1 inh inhalation QID PRN (Reason: shortness of breath or wheezing) Qty: 8.5 0RF atorvastatin 40 mg tablet 40 mg PO 1XD bumetanide 2 mg tablet amoxicillin 875 mg tablet aspirin 81 mg tablet,chewable 81 mg PO QDAY metoprolol succinate 25 mg tablet extended release 24 hr PO albuterol sulfate 90 mcg/actuation HFA aerosol inhaler INHALATION doxycycline hyclate 100 mg tablet Eliquis 5 mg tablet 5 mg PO BID doxycycline monohydrate 100 mg capsule 100 mg PO BID Qty: 14 0RF promethazine 6.25 mg/5 mL syrup 6.25 mg PO TID PRN (Reason: cough) Qty: 120 0RF Referrals: No Primary/Family,Physician [Primary Care Provider] - In 1 week Problem List Clinical Impression: Chronic chest pain, Methamphetamine abuse, Elevated troponin, Congestive heart failure, Inguinal hernia Patient/Caregiver Discharge Instructions Education Materials: ED Chest Pain, Uncertain Cause, ED Drug Abuse, ED Heart Disease Education Additional Instructions: Stop using methamphetamines for better health. Follow-up with your primary care doctor as needed. You can return to the emergency department sooner symptoms worsen or if you notice any new or concerning issues. Print Language: Nigerien Stand Alone Forms: [employer] Info., Patient Portal Info Letter
[2024-06-11 15:07] VITALS: BP 144/96; PULSE 91; RESP 18; TEMP 36.5; O2SAT 99
== END 2024-06-11 15:12 | disposition home or self-care (01) ==
PROVIDERS: Emergency Provider Emergency Medicine
DX: I50.9 Heart failure, unspecified (principal); I42.0 Dilated cardiomyopathy; I51.7 Cardiomegaly; F15.10 Other stimulant abuse, uncomplicated; G89.29 Other chronic pain; K40.90 Unilateral inguinal hernia, without obstruction or gangrene, not specified as recurrent
CPT/HCPCS: 36415; 71046; 80053; 84484; 85025; 93005; 99283; A9270

== ENCOUNTER 2024-06-18 21:44 | Inpatient (IN) | payer MEDICAID, SELFPAY ==
[2024-06-18] VITALS (8 sets, daily range): BP systolic 130–157; BP diastolic 101–114; PULSE 86–108; RESP 13–31; TEMP 36.6; O2SAT 94–100; BMI 23.6
--- NOTE | 2024-06-18 22:14 | PD.EDRME ---
Rapid Medical Screening Exam RME Arrival date/time: 06/18/24 21:44 This is a 64-year-old male that comes in with complaints of chest pain, shortness of breath, cough, runny nose, bilateral lower extremity swelling that per patient started yesterday. Patient has wounds to bilateral lower legs. Patient states that he does not know if he is diabetic. Patient has a history of methamphetamine abuse. Patient states he is homeless. Patient has a history of dilated cardiomyopathy (EF of 20 to 25%) due to long-term and current methamphetamine use. history of hep C, chronic left foot osteomyelitis, hypertension, hyperlipidemia, medical noncompliance I have greeted and performed a focused initial assessment of this patient. Initial appropriate labs ordered at this time. A comprehensive ED assessment and evaluation of the patient and analysis of all test and completion of medical decision making process will be conducted by additional ED provider. Chief Complaint: Shortness of Breath/Dyspnea Time Seen by Provider: 06/18/24 22:07 Vital signs: Vital Signs Temperature 97.9 F 06/18/24 22:01 Pulse Rate 95 06/18/24 22:01 Respiratory Rate 26 H 06/18/24 22:01 Blood Pressure 147/101 H 06/18/24 22:01 Pulse Oximetry (%) 97 06/18/24 22:01 Oxygen Delivery Method Nasal Cannula 06/18/24 22:01 Oxygen Flow Rate 2 06/18/24 22:01
--- NOTE | 2024-06-18 22:15 | XR_ITS ---
Examination: Foot, left, 3 views Technique: AP, oblique, lateral views foot, 3 views Date and time of exam: June 18, 2024 1039 hrs. Indications: Redness swelling and pain involving the foot this week. Findings: Soft tissue swelling about the first digit Early cortical bone destruction ungual tuft tip distal phalanx first digit Chronic deformity at the first metatarsophalangeal joint Erosion also distal first metatarsal and base proximal phalanx first digit Subluxations second and third metatarsophalangeal joints Impression: Osteomyelitis proximal and distal phalanges first digit and distal first metatarsal Consider MRI foot without contrast follow-up
--- NOTE | 2024-06-18 22:15 | XR_ITS ---
Examination: Foot, right, 3 views Technique: AP, oblique, lateral views foot, 3 views Date and time of exam: June 18, 2024 1042 hrs. Indications: Redness swelling and pain involving the foot this week Findings: Prominent bunion deformity with chronic erosions distal first metatarsal No fracture No opaque foreign body Impression: Chronic erosions distal first metatarsal, differential would include erosive arthritis as well as osteomyelitis Consider MRI foot without contrast follow-up
--- NOTE | 2024-06-18 22:15 | XR_ITS ---
Examination: AP chest single view Technique: AP portable upright chest single view Exam date and time: June 18, 1999 2546 hours Comparison June 03, 2024 Indications: Coughing today. Findings: Mild CHF Moderate enlargement cardiac contour Prominent vascular congestion with perihilar septal edema Superimposed pneumonia right base Impression: Mild CHF Superimposed pneumonia right base
[2024-06-18 23:00] LABS: Lactate (Lactic Acid) 3.1 mMol/L (0.4-2.0)
--- NOTE | 2024-06-18 23:21 | PC.RT ---
keenan sent to lab
[2024-06-18 23:22] LABS: Base Excess -6 (-3-3); HCO3 18 mEq/L (20-26); Inspired Oxygen, FIO2 30 %; O2 Saturation 100 % (91-98); PCO2 27 mmHg (32.0-48.0); PO2 149 mmHg (83-108); pH, Arterial 7.42 (7.35-7.45)
[2024-06-18 23:27] LABS: Allen Test Performed/OK; Puncture Site Right Radial
--- NOTE | 2024-06-18 23:28 | PD.EDSOB ---
ED SOB =RME/HPI General Chief Complaint: Shortness of Breath/Dyspnea Stated Complaint: SOB, ABD PAIN Time Seen by Provider: 06/18/24 22:07 Source: patient and EMS Arrival date/time: 06/18/24 21:44 Mode of arrival: EMS Limitations: no limitations RME / HPI RME / HPI Narrative: DR. US MAIN ED EVALUATION: This is a 64-year-old male with history of methamphetamine abuse, homelessness, elevated cholesterol, CHF on Bumex ,dilated cardiomyopathy with a EF of 20%, hep C, chronic left foot osteomyelitis, hypertension, hyperlipidemia, that comes in with complaints of chest pain, shortness of breath, cough, runny nose, bilateral lower extremity swelling that per patient started yesterday. Patient states has a history of lower extremity swelling and this is not worsening than usual. Positive shortness of breath, no fevers. Patient is noncompliant with medications. Related Data Previous Rx's ?Medication ?Instructions ?Recorded apixaban 2.5 mg tablet (Eliquis) 5 mg (2 x 2.5 mg) PO BID #60 tabs 06/22/24 aspirin 81 mg tablet,delayed 81 mg PO QDAY 30 days #30 tabs 06/22/24 release (Ecotrin Low Strength) atorvastatin 40 mg tablet 40 mg PO HS 30 days #30 tabs 06/22/24 bumetanide 1 mg tablet 1 mg PO BID 30 days #60 tabs 06/22/24 ceftriaxone 2 gram solution for 2 g IV QDAY #40 ea 06/22/24 injection doxycycline hyclate 100 mg capsule 100 mg PO BID #80 caps 06/22/24 metoprolol succinate 25 mg 25 mg PO QDAY 30 days #30 tabs 06/22/24 tablet,extended release 24 hr sacubitril 24 mg-valsartan 26 mg 1 tab PO BID #30 tabs 06/22/24 tablet (Entresto) Allergies Allergy/AdvReac Type Severity Reaction Status Date / Time No Known Allergies Allergy Verified 06/11/24 12:46 Review of Systems Review of Systems Systems Reviewed: All systems reviewed, normal except as documented Past Medical History Past Medical History NEUROLOGIC: Positive Cerebrovascular Accident; Negative Neurological Disorders or Seizures CARDIAC: Positive Cardiac Disorders, Congestive Heart Failure and Hypertension; Negative Atrial Fibrillation, Angina, Atherosclerotic Heart Disease, Aneurysm or Cellulitis RESPIRATORY: Positive Asthma; Negative Chronic Obstructive Pulmonary Disease (COPD) GASTROINTESTINAL: Positive Gastrointestinal Disorders, Hepatitis and Ulcer GENITOURINARY: Positive Inguinal Hernia; Negative Renal Disease MUSCULOSKELETAL: Positive Musculoskeletal Disorders, Arthritis, Gout and Osteomyelitis ENDOCRINE: Negative Endocrine Disorders, Diabetes Mellitus Type 1 or Diabetes Mellitus Type 2 HEMATOLOGIC: Positive Anemia; Negative Sickle Cell Disease PSYCHO/SOCIAL: Positive Recreational Drug Use, Depression and Anxiety OTHER HISTORY: Negative Blood Transfusions, Blood Transfusion Reaction, Anesthesia Reactions, Clostridium Difficile or Cancer Family History FAMILY HISTORY: Positive Family Psychiatric Problems, Family Cardiac Disorders and Family Cancer; Negative Family Respiratory Disorders or Family Gastrointestinal Problems Surgical History SURGICAL: Positive Abdominal Surgery; Negative Cardiac Surgery, Pacemaker, Ear Surgery or Joint Replacement Social History SMOKING STATUS: Former smoker SUBSTANCE USE: methamphetamine ED Exam General Limitations: Present no limitations General appearance: Present alert and in no apparent distress Head Head exam: Present atraumatic, normocephalic and normal inspection Eye Eye exam: Present normal appearance, PERRL and EOMI ENT ENT exam: Present normal exam, normal oropharynx, TM's normal bilaterally and normal external ear exam Neck Neck exam: Present normal inspection and full ROM Chest Chest inspection: Present normal inspection and symmetric chest wall rise Respiratory Respiratory exam: Present normal lung sounds bilaterally Cardiovascular Cardiovascular exam: Present normal rhythm, tachycardia and normal heart sounds Abdominal Exam Abdominal exam: Present normal bowel sounds Extremities Exam Extremities exam: Present normal inspection and full ROM Back Exam Back exam: Present normal inspection and full ROM Neurological Exam Neurological exam: Present alert, oriented X3 and CN II-XII intact Psychiatric Psychiatric exam: Present normal affect and normal mood; Absent depressed Skin Skin exam: Present warm, dry, intact and normal color Course Course Course Narrative: CXR is ordered to aid in determining etiology of shortness of breath and coughing. 0108: Sepsis alert initiated. Orders made at this time are congruent with ED Adult Sepsis Order List. Re-evaluation is to be completed. 0148: Sepsis reassessment performed consisting of lab review, vitals, physical exam including auscultation of heart, lungs, and visual evaluation of capillary refills, mucosal membranes and extremities. Quality Measures Current suspected stage: sepsis Possible source: unknown Blood cultures ordered: yes Antibiotic ordered: Yes Pertinent labs: 06/18/24 22:25 Lactic Acid 3.1 H mMol/L (0.4-2.0) Procalcitonin 0.22 ng/ml (0.0-0.49) sepsis Orders Category Date Time Status Bedside COVID-19 Antigen Test NOW Care 06/18/24 22:17 Completed Bedside Influenza A&B Antigen Test NOW Care 06/18/24 22:17 Completed COVID-19 Screening Questionnaire NOW Care 06/19/24 02:30 Completed Decision to Admit X1 Care 06/19/24 02:30 Completed EKG (ED ONLY) *Do not use* NOW Care 06/18/24 22:16 Completed EKG (ED Only) Stat Exams 06/18/24 22:15 Ordered XR chest 1V Stat Exams 06/18/24 22:15 Completed XR foot comp LT min 3V Stat Exams 06/18/24 22:15 Completed XR foot comp RT min 3V Stat Exams 06/18/24 22:15 Completed ABG [Arterial Blood Gas] Stat Lab 06/19/24 00:41 Completed Arterial Blood Gas Stat Lab 06/18/24 23:17 Completed BNP [B-Type Natriuretic Peptide] Stat Lab 06/18/24 23:45 Completed Blood Culture (Lab) Stat Lab 06/18/24 22:40 Completed CBC Stat Lab 06/18/24 23:45 Completed CRP [C-Reactive Protein] Stat Lab 06/18/24 22:25 Completed Comprehensive Metabolic Panel Stat Lab 06/18/24 22:25 Completed Lactate (Lactic Acid) Stat Lab 06/18/24 22:25 Completed Procalcitonin Stat Lab 06/18/24 22:25 Completed Troponin I Stat Lab 06/18/24 22:25 Completed DiphenhydrAMINE INJ [Benadryl Inj] Med 06/19/24 00:08 Discontinued 50 mg .ROUTE .STK-MED ONE DiphenhydrAMINE INJ [Benadryl Inj] Med 06/19/24 00:11 Discontinued 50 mg IVP X1 ONE Furosemide Inj [Lasix Inj] Med 06/18/24 23:34 Discontinued 40 mg IVP X1 ONE Ketamine Inj Med 06/18/24 23:58 Discontinued 75 mg IVP X1 ONE Nitroglycerin Oint 2% [Nitro-paste Oint 2%] Med 06/19/24 02:00 Discontinued 1 inch TOP X1 ONE cefTRIAXone [Rocephin] 1,000 mg Med 06/18/24 23:37 Discontinued Sodium Chloride 0.9% (P) [Ns 0.9% (P)] 50 ml IV X1 BiPAP / CPAP NEEDED RT 06/18/24 23:07 Completed Vital Signs Vital signs: Vital Signs Temperature 97.9 F 06/18/24 22:01 Pulse Rate 95 06/18/24 22:01 Respiratory Rate 26 H 06/18/24 22:01 Blood Pressure 147/101 H 06/18/24 22:01 Pulse Oximetry (%) 97 06/18/24 22:01 Oxygen Delivery Method Nasal Cannula 06/18/24 22:01 Oxygen Flow Rate 2 06/18/24 22:01 Shortness of Breath / Dyspnea MDM Narrative MDM Narrative:: Differential diagnoses include ulcer, CHF, pneumonia, noncompliance, worsening cardiomyopathy, acute respiratory failure with hypoxia and/or hypercapnia, continue drug use ? Scribe Attestation: I, Sherry Nixon, am scribing for and in the presence of Dr. Carlin. Provider Notation: Although this document has been carefully reviewed, there may still be some phonetic and other typographical errors. These errors are purely grammatical due to imperfections in the software program and should not be construed in any way to compromise the substance of the patient's medical care during this visit. Patient data External records reviewed:: [facility] previous records Clinical information provided by:: patient Social determinants that could affect healthcare access:: substance use Patient has the following chronic illnesses:: CVA, CHF, HTN, asthma, ulcer, hepatitis, inguinal hernia, arthritis, gout, osteomyelitis, anemia, anxiety, depression How is presenting disease/condition affected by chronic disease/condition?: uneffected by Evaluation data The following diagnostics were reviewed and interpreted by me:: lab results, radiology exam(s) and EKG tracing(s) Lab and/or radiology exams considered but not ordered:: None Interpretation Summary: Exam date and time: CXR June 18, 1999 2546 hours Comparison June 03, 2024 Indications: Coughing today. Findings: Mild CHF Moderate enlargement cardiac contour Prominent vascular congestion with perihilar septal edema Superimposed pneumonia right base Impression: Mild CHF Superimposed pneumonia right base Dictated By: Aneesh Acuna MD Examination: Foot, left, 3 views Technique: AP, oblique, lateral views foot, 3 views Date and time of exam: June 18, 2024 1039 hrs. Indications: Redness swelling and pain involving the foot this week. Findings: Soft tissue swelling about the first digit Early cortical bone destruction ungual tuft tip distal phalanx first digit Chronic deformity at the first metatarsophalangeal joint Erosion also distal first metatarsal and base proximal phalanx first digit Subluxations second and third metatarsophalangeal joints Impression: Osteomyelitis proximal and distal phalanges first digit and distal first metatarsal Consider MRI foot without contrast follow-up Dictated By: Aneesh Acuna MD Examination: Foot, right, 3 views Date and time of exam: June 18, 2024 1042 hrs. Indications: Redness swelling and pain involving the foot this week Findings: Prominent bunion deformity with chronic erosions distal first metatarsal No fracture No opaque foreign body Impression: Chronic erosions distal first metatarsal, differential would include erosive arthritis as well as osteomyelitis Consider MRI foot without contrast follow-up Dictated By: Aneesh Acuna MD Medications / Prescriptions Medications or Prescriptions considered but not ordered:: None Medication administrations:: Medication Administration History Discontinued Medications Acetaminophen (Acetaminophen 325 Mg Tablet) 650 mg PO Q6H PRN PRN Reason: Fever >101.5 Stop: 07/19/24 02:44 Albuterol/Ipratropium (Albuterol/Ipratropium (Duoneb) Rt Lacie 3 Ml Nebu) 3 ml INH Q6HRRT JANETTE Stop: 07/19/24 06:59 Last Admin: 06/22/24 06:42 Dose: 3 ml Documented By: Admin: 06/22/24 01:48 Dose: 3 ml Documented By: Admin: 06/21/24 19:12 Dose: 3 ml Documented By: Admin: 06/21/24 12:46 Dose: 3 ml Documented By: Admin: 06/21/24 06:58 Dose: 3 ml Documented By: Admin: 06/21/24 00:06 Dose: 3 ml Documented By: Admin: 06/20/24 19:35 Dose: 3 ml Documented By: Admin: 06/20/24 12:32 Dose: 3 ml Documented By: Admin: 06/20/24 06:55 Dose: 3 ml Documented By: Admin: 06/20/24 00:58 Dose: 3 ml Documented By: Admin: 06/19/24 19:45 Dose: 3 ml Documented By: Admin: 06/19/24 13:02 Dose: 3 ml Documented By: Admin: 06/19/24 07:30 Dose: 3 ml Documented By: KATRINA Apixaban (Apixaban 2.5 Mg Tablet) 5 mg PO BID JANETTE Stop: 07/19/24 20:59 Last Admin: 06/21/24 08:46 Dose: 5 mg Documented By: Admin: 06/20/24 20:14 Dose: 5 mg Documented By: Admin: 06/20/24 08:19 Dose: 5 mg Documented By: JERRY(2) Admin: 06/19/24 21:21 Dose: 5 mg Documented By: JALIL Aspirin (Aspirin Ec 81 Mg Tabec) 81 mg PO QDAY JANETTE Stop: 07/19/24 08:59 Last Admin: 06/21/24 08:46 Dose: 81 mg Documented By: Admin: 06/20/24 08:19 Dose: 81 mg Documented By: JERRY(2) Admin: 06/19/24 08:14 Dose: 81 mg Documented By: JERRY(2) Atorvastatin Calcium (Atorvastatin Calcium 20 Mg Tablet) 40 mg PO HS JANETTE Stop: 07/19/24 20:59 Last Admin: 06/21/24 21:33 Dose: 40 mg Documented By: Admin: 06/20/24 20:14 Dose: 40 mg Documented By: Admin: 06/19/24 21:21 Dose: 40 mg Documented By: JALIL Bumetanide (Bumetanide Inj 0.25 Mg/Ml Vial 4 Ml) 1 mg IVP BID JANETTE Stop: 07/19/24 08:59 Last Admin: 06/19/24 21:16 Dose: 1 mg Documented By: Admin: 06/19/24 08:15 Dose: 1 mg Documented By: JERRY(2) Bumetanide (Bumetanide Inj 0.25 Mg/Ml Vial 4 Ml) 2 mg IVP BID JANETTE Stop: 07/19/24 08:59 Last Admin: 06/22/24 08:27 Dose: 2 mg Documented By: Admin: 06/21/24 21:33 Dose: 2 mg Documented By: Admin: 06/21/24 08:47 Dose: 2 mg Documented By: Admin: 06/20/24 20:21 Dose: 2 mg Documented By: Admin: 06/20/24 08:37 Dose: 2 mg Documented By: JERRY(2) Diphenhydramine HCl (Diphenhydramine Inj 50 Mg/Ml Vial) 50 mg IVP X1 ONE Stop: 06/19/24 00:12 Last Admin: 06/19/24 00:36 Dose: Not Given Documented By: TC Non-Admin Reason: Discontinued Diphenhydramine HCl (Diphenhydramine Inj 50 Mg/Ml Vial) Confirm Administered Dose 50 mg .ROUTE .STK-MED ONE Stop: 06/19/24 00:09 Last Admin: 06/19/24 00:19 Dose: Not Given Documented By: TC Non-Admin Reason: Override Medication Diphenhydramine HCl (Diphenhydramine Inj 50 Mg/Ml Vial) 25 mg IVP X1 ONE Stop: 06/21/24 01:43 Last Admin: 06/21/24 02:18 Dose: 25 mg Documented By: Enoxaparin Sodium (Enoxaparin Sod Inj 40 Mg/0.4 Ml Syringe) 40 mg SC QDAY JANETTE Stop: 07/03/24 08:59 Last Admin: 06/19/24 08:14 Dose: 40 mg Documented By: JERRY(2) Furosemide (Furosemide Inj 10 Mg/Ml 4ml Vial) 40 mg IVP X1 ONE Stop: 06/18/24 23:35 Last Admin: 06/18/24 23:42 Dose: 40 mg Documented By: JOSÉ MIGUEL Furosemide (Furosemide Inj 10 Mg/Ml 4ml Vial) 40 mg IVP X1 ONE Stop: 06/19/24 03:49 Last Admin: 06/19/24 04:21 Dose: 40 mg Documented By: JOSÉ MIGUEL Ceftriaxone Sodium 1,000 mg/ (Sodium Chloride) 50 mls @ 100 mls/hr IV X1 ONE Stop: 06/19/24 00:06 Last Infusion: 06/19/24 00:04 Dose: Infused Documented By: JOSÉ MIGUEL Admin: 06/18/24 23:43 Dose: 100 mls/hr Documented By: JOSÉ MIGUEL Magnesium Sulfate (Magnesium Sulfate Ivpb) 4 gm in 50 mls @ 12.5 mls/hr IV X1 ONE Stop: 06/19/24 14:25 Last Admin: 06/19/24 11:22 Dose: 12.5 mls/hr Documented By: JERRY(2) Doxycycline Hyclate 100 mg/ (Sodium Chloride) 100 mls @ 100 mls/hr IV BID JANETTE Stop: 07/31/24 20:59 Last Admin: 06/22/24 09:16 Dose: 100 mls/hr Documented By: Infusion: 06/21/24 22:32 Dose: Infused Documented By: Admin: 06/21/24 21:32 Dose: 100 mls/hr Documented By: Infusion: 06/21/24 10:36 Dose: Infused Documented By: Admin: 06/21/24 09:36 Dose: 100 mls/hr Documented By: Infusion: 06/20/24 21:17 Dose: Infused Documented By: Admin: 06/20/24 20:17 Dose: 100 mls/hr Documented By: Infusion: 06/20/24 09:18 Dose: Infused Documented By: Admin: 06/20/24 08:18 Dose: 100 mls/hr Documented By: JERRY(2) Infusion: 06/20/24 03:47 Dose: Infused Documented By: Admin: 06/19/24 21:15 Dose: 100 mls/hr Documented By: JALIL Ceftriaxone Sodium 2 gm/ (Sodium Chloride) 50 mls @ 100 mls/hr IV QDAY JANETTE Stop: 07/31/24 15:59 Last Admin: 06/22/24 08:26 Dose: 100 mls/hr Documented By: Infusion: 06/21/24 09:27 Dose: Infused Documented By: Admin: 06/21/24 08:57 Dose: 100 mls/hr Documented By: Infusion: 06/20/24 08:47 Dose: Infused Documented By: Admin: 06/20/24 08:17 Dose: 100 mls/hr Documented By: JERRY(2) Infusion: 06/19/24 16:44 Dose: Infused Documented By: JERRY(2) Admin: 06/19/24 16:14 Dose: 100 mls/hr Documented By: JERRY(2) Magnesium Sulfate (Magnesium Sulfate Ivpb) 4 gm in 50 mls @ 12.5 mls/hr IV X1 ONE Stop: 06/21/24 12:02 Last Admin: 06/21/24 09:36 Dose: 12.5 mls/hr Documented By: FLORA Ketamine HCl (Ketamine 50 Mg/Ml Vial 10 Ml) 75 mg IVP X1 ONE Stop: 06/18/24 23:59 Last Admin: 06/19/24 00:02 Dose: 75 mg Documented By: JOSÉ MIGUEL Magnesium Hydroxide (Milk Of Magnesia Susp 30 Ml Udc) 30 ml PO QDAY PRN; Protocol PRN Reason: CONSTIPATION Stop: 07/19/24 02:44 Magnesium Oxide (Magnesium Oxide 400 Mg Tablet) 400 mg PO X1 ONE Stop: 06/20/24 07:59 Last Admin: 06/20/24 08:19 Dose: 400 mg Documented By: JERRY(2) Melatonin (Melatonin 3 Mg Tablet) 3 mg PO X1 ONE Stop: 06/19/24 21:52 Last Admin: 06/19/24 22:23 Dose: 3 mg Documented By: JALIL Melatonin (Melatonin 3 Mg Tablet) 3 mg PO X1 ONE Stop: 06/20/24 11:50 Last Admin: 06/20/24 19:57 Dose: Not Given Documented By: GangaT(2) Non-Admin Reason: Per MD, to be given at bedtime Comments: medication not available for this pt in pyxis per NOC nurse Melatonin (Melatonin 3 Mg Tablet) 3 mg PO X1 ONE Stop: 06/20/24 20:07 Last Admin: 06/20/24 20:14 Dose: 3 mg Documented By: Melatonin (Melatonin 3 Mg Tablet) 3 mg PO X1 ONE Stop: 06/20/24 22:17 Last Admin: 06/20/24 22:32 Dose: 3 mg Documented By: Metoprolol Succinate (Metoprolol Succinate Xl 25 Mg Tabcr) 25 mg PO QDAY JANETTE Stop: 07/20/24 09:59 Last Admin: 06/22/24 08:32 Dose: Not Given Documented By: FLORA Non-Admin Reason: NPO Admin: 06/21/24 08:46 Dose: 25 mg Documented By: Admin: 06/20/24 12:19 Dose: Not Given Documented By: JT(2) Non-Admin Reason: Vital Signs Nitroglycerin (Nitroglycerin Oint 2% 1 Inch Packet) 1 inch TOP X1 ONE Stop: 06/19/24 02:01 Last Admin: 06/19/24 02:07 Dose: 1 inch Documented By: JOSÉ MIGUEL Ondansetron HCl (Ondansetron Inj 2 Mg/Ml Inj 2 Ml) 4 mg IV Q6H PRN; Protocol PRN Reason: NAUSEA OR VOMITING Stop: 07/19/24 02:44 Pantoprazole Sodium (Pantoprazole 40 Mg Tablet) 40 mg PO QDAY [facility] Stop: 07/19/24 08:59 Last Admin: 06/22/24 08:32 Dose: Not Given Documented By: FLORA Non-Admin Reason: NPO Admin: 06/21/24 08:46 Dose: 40 mg Documented By: Admin: 06/20/24 08:19 Dose: 40 mg Documented By: JERRY(2) Admin: 06/19/24 08:14 Dose: 40 mg Documented By: JERRY(2) Potassium Chloride (Potassium Chloride 20 Meq Tabcr) 40 meq PO X1 ONE Stop: 06/20/24 07:59 Last Admin: 06/20/24 08:19 Dose: 40 meq Documented By: JERRY(2) Potassium Chloride (Potassium Chloride 20 Meq Tabcr) 40 meq PO X1 ONE Stop: 06/21/24 08:03 Last Admin: 06/21/24 08:46 Dose: 40 meq Documented By: FLORA Potassium Chloride (Potassium Chloride 20 Meq Tabcr) 20 meq PO X1 ONE Stop: 06/21/24 10:01 Last Admin: 06/21/24 09:36 Dose: 20 meq Documented By: FLORA Sacubitril/Valsartan (Sacubitril 24 Mg/Valsartan 26 Mg Tablet) 1 tab PO BID [facility] Stop: 07/19/24 20:59 Last Admin: 06/22/24 08:32 Dose: Not Given Documented By: FLORA Non-Admin Reason: NPO Admin: 06/21/24 21:33 Dose: 1 tab Documented By: Admin: 06/21/24 08:46 Dose: 1 tab Documented By: Admin: 06/20/24 20:14 Dose: 1 tab Documented By: Admin: 06/20/24 08:19 Dose: 1 tab Documented By: JERRY(2) Admin: 06/19/24 21:21 Dose: 1 tab Documented By: JALIL As above Consultations Consultation(s) initiated? (list below): Yes Consultation #1 (Physician, Specialty, Details): Hospitalist Resident made aware of the patient?s HPI, PMHx, lab and/or radiology results. Treatment plan was discussed. Will admit for further evaluation and management. Accepts patient for admission. Time: 02:30 Diagnosis Shortness of Breath Differential Diagnosis: other (ulcer, CHF, pneumonia, noncompliance, worsening cardiomyopathy, acute respiratory failure with hypoxia and/or hypercapnia, continue drug use) Most likely diagnosis given after review of the tests above:: See clinical impression below Admission Indicated Admission indicated?: indicated Admission Request Was there a request for admission?: Yes Admission Attestation Admission request attestation: Discussed case with [] from Hospitalist service regarding admission. Discussed patients ED course, exam findings, labs, and radiology results. The Hospitalist [agrees,declines] to accept the patient for admission. Disposition Plan Disposition Plan: Admit Critical Care Time Critical Care Time Critical Care Time: Yes Total Critical Care Time (min.): 60 Attestation: The high probability of sudden, clinically significant deterioration in the patient?s condition required the highest level of my preparedness to intervene urgently. The services I provided to this patient were to treat and/or prevent clinically significant deterioration. Services included the following: chart data review, reviewing nursing notes and/or old charts, documentation time, freight traffic consultant collaboration regarding findings and treatment options, medication orders and management, direct patient care, vital sign assessments and ordering, interpreting and reviewing diagnostic studies and lab tests. Aggregate critical care time includes only time during which I was engaged in work directly related to the patient?s care, as described above, whether at bedside or elsewhere in the Emergency Department. It did not include time spent performing other reported procedures or the services of residents, students, nurses or physician assistants. Discharge Plan Plan Patient Disposition: Admit Acute Care w/in Hospital Patient condition on transfer: Stable Problem List Clinical Impression: Acute exacerbation of CHF (congestive heart failure) Patient/Caregiver Discharge Instructions Discharge Activity: activity as tolerated Other Activity Instructions:: Please follow-up with your PCP within 1 week of discharge. You have been started on: Atorvastatin 40 Mg daily at night Bumetanide 1 mg twice daily Ceftriaxone 2 g IV daily until 07/31/2024 Please do weekly cbc, renal panel, esr and line removal at end of completing Ceftriaxone on 07/31/24 Doxycycline 100 mg twice daily for 40 days Metoprolol succinate 25 mg daily to be continued Entresto 24-26 mg tablet 1 tab twice daily to be continued -Recommended to return back to emergency department if your symptoms persist or does not improve.
--- NOTE | 2024-06-18 23:28 | PC.RT ---
fio2 titrated to 21% settings changed to 10/5, RR18 per abg results.
[2024-06-18] MEDS: FUROSEMIDE INJ 10 MG/ML 4ML VIAL 40 MG IVP (23:42)
[2024-06-18] MEDS: cefTRIAXone 1,000 MG in SODIUM CHLORIDE 0.9% (P) 50 ML 100 MG IV (23:43)
[2024-06-18 23:53] LABS: Alanine Aminotransferase 24 U/L (10-49); Albumin, Serum 3.7 gm/dL (3.4-4.8); Albumin/Globulin Ratio 1.2 (1.2-2.2); Alkaline Phosphatase 166 U/L (46-116); Anion Gap 11 (7-16); Aspartate Amino Transferase 44 U/L (0-34); BUN/Creatinine Ratio 25 Ratio (12-20); Bilirubin,Total 1.4 mg/dL (0.3-1.2); Blood Urea Nitrogen 32 mg/dL (9-23); C-Reactive Protein 2.5 mg/dL (0.0-0.9); Calcium (Corrected) 8.2 mg/dL (8.5-10.1); Carbon Dioxide 19.6 mMol/L (20.0-31.0); Chloride 108 mMol/L (98-107); Creatinine (Component) 1.3 mg/dL (0.6-1.3); Estimated Creatinine Clearance 58.2 mL/min (>60); Glucose 114 mg/dL (74-106); Osmolality,Calculated 285 (275-295); Potassium 4.3 mMol/L (3.4-5.1); Procalcitonin 0.22 ng/ml (0.0-0.49); Sodium 139 mMol/L (136-145); Total Protein 6.7 gm/dL (5.7-8.2); eGFR > 60 See Note
[2024-06-18 23:57] LABS: Troponin I 0.079 ng/mL (0.0-0.045)
[2024-06-19] VITALS (56 sets, daily range): BP systolic 121–172; BP diastolic 74–139; PULSE 80–119; RESP 12–42; TEMP 36.2–36.4; O2SAT 80–100; BMI 25.7
[2024-06-19] LABS: Basophils # (Auto) 0.1 Thou/mm3 (0.0-0.2); Basophils % (Auto) 1 % (0-2.5); Eosinophils # (Auto) 0.1 Thou/mm3 (0.0-0.5); Eosinophils % (Auto) 1 % (0-10); Hematocrit 39.2 % (41.0-53.0); Hemoglobin 12.7 g/dL (13.5-16.0); Immature Granulocytes % (Auto) 0 % (0-0); Immature Granulocytes Auto 0.02 Thou/mm3 (0.00-0.00); Lymphocytes # (Auto) 0.8 Thou/mm3 (1.0-4.8); Lymphocytes % (Auto) 11 % (10-50); Mean Corpuscular HGB Conc 32.4 g/dl (31.0-37.0); Mean Corpuscular Hemoglobin 27.9 pg (25.0-35.0); Mean Corpuscular Volume 86 fL (80-100); Monocytes # (Auto) 1.2 Thou/mm3 (0.0-0.8); Monocytes % (Auto) 16 % (0-12); Neutrophils # (Auto) 5.6 Thou/mm3 (1.8-7.7); Neutrophils % (Auto) 72 % (37-80); Nucleated Red Blood Cell # 0.03 Thou/mm3 (0.00-0.00); Nucleated Red Blood Cell % 0 /100 WBC (0); Platelet Count 148 Thou/mm3 (140-440); RDW Standard Deviation 57.5 fL (35.1-43.9); Red Blood Count 4.56 Miln/mm3 (4.50-5.90); White Blood Count 7.9 Thou/mm3 (3.8-10.6)
[2024-06-19] MEDS: KETAMINE 50 MG/ML VIAL 10 ML 75 MG IVP (00:02)
[2024-06-19 00:16] LABS: B-Type Natriuretic Peptide > 3280 pg/mL (0-100)
[2024-06-19 00:45] LABS: Base Excess -11 (-3-3); HCO3 15 mEq/L (20-26); Inspired Oxygen, FIO2 100 %; O2 Saturation 101 % (91-98); PCO2 30 mmHg (32.0-48.0); PO2 436 mmHg (83-108)
--- NOTE | 2024-06-19 00:45 | PC.RT ---
got a called at 0011 per nurse RT needed stat, DR. Diallo at bedside with RN, pt on bipap at 100% fio2 per . fio2 had to be increased due to spo2 dropping, spo2 between 80s to low 90s, RR in the 30s RT in room waiting for abg results.
[2024-06-19 00:46] LABS: Allen Test Performed/OK; Puncture Site Right Radial
--- NOTE | 2024-06-19 00:52 | PC.RT ---
fio2 titrated to 40% per abg results
--- NOTE | 2024-06-19 01:08 | PC.NURSE ---
sepsis alert called per dr. Holden
[2024-06-19 01:54] LABS: Reflex Lactate? Y
[2024-06-19] MEDS: NITROGLYCERIN OINT 2% 1 INCH PACKET TOP (02:07)
--- NOTE | 2024-06-19 02:50 | ESHP_ITS ---
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 Patient was apparently normal at his baseline 3 days ago, patient endorsed that he used meth and since then he is having shortness of breath and is also noncompliant with his medications, associated with orthopnea. Denies chest pain, palpitations, fever, abdominal distention, abdominal pain, burning micturition. Patient endorsed that he is not using Lasix because his bathroom in the correction is far away from his bed and in the correction he was not allowed to use bedpan/urinals, as patient is short of breath and not able to mobilize from bed he is stopped taking Lasix ED Course: -Initial vitals were blood pressure 147/111 mmHg, pulse rate 95 bpm, respiratory rate 26/min, SpO2 97% with 2 L oxygen through nasal cannula -Labs significant for Hb 12.7, sodium 139, potassium 4.8, chloride 108, bicarb 19.6, BUN 32, creatinine 1.3, lactate 3.1, total bilirubin 1.4, AST 44, ALT 22, ALP 167, troponin 0.079, CRP 2.5, BNP >3280, procalcitonin 0.22. Foot x-ray showed osteomyelitis. 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 Review of Systems Review of Systems Narrative Review of Systems: Constitutional: No Weight Change, No Fever, No Chills, No Night Sweats, Fatigue, Malaise ENT/Mouth: No Hearing Changes, No Ear Pain, No Nasal Congestion, No Sinus Pain, No Hoarseness, No sore throat, No Rhinorrhea, No Swallowing Difficulty Eyes: No Eye Pain, No Swelling, No Redness, No Foreign Body, No Discharge, No Vision Changes Cardiovascular: No Chest Pain, SOB, No PND, Dyspnea on Exertion, Orthopnea, Edema, No Palpitations Respiratory: No Cough, No Sputum, No Wheezing, No Dyspnea Gastrointestinal: No Nausea, No Vomiting, No Diarrhea, No Constipation, No Pain, No Heartburn, Anorexia, No Dysphagia, No Hematochezia, No Melena, No Flatulence, No Jaundice Genitourinary: No Dysuria, No Urinary Frequency, No Hematuria, No Urinary Incontinence, No Urgency, No Flank Pain, No Urinary Flow Changes, No Hesitancy Musculoskeletal: No Arthralgias, No Myalgias, No Joint Swelling, No Joint Stiffness, No Back Pain, No Neck Pain, No Injury History Skin: No Skin Lesions, No Pruritis Neuro: No Weakness, No Numbness, No Paresthesias, No Loss of Consciousness, No Syncope, No Dizziness, No Headache, No Coordination Changes, No Recent Falls Exam Vital Signs Temp Pulse Resp BP Pulse Ox O2 Del Method O2 Flow Rate 97.9 F 119 H 28 H 156/121 H 96 Nasal Cannula 2 06/18/24 22:01 06/19/24 02:16 06/19/24 02:16 06/19/24 02:16 06/19/24 02:16 06/18/24 22:01 06/18/24 22:01 FiO2 40 06/19/24 00:52 Narrative Exam General: Awake. Sitting on the bed with BiPAP in situ HEENT: Normocephalic, atraumatic, mucous membranes dry. Heart: Regular rate and rhythm, no murmurs. Lungs: Clear to auscultation with no wheezing or crackles. Abdomen: Soft, nondistended, nontender, positive bowel sounds. ?No guarding or rebound tenderness. Right inguinal hernia Neurologic: Alert and oriented x3, no gross neurological deficit, and patient able to move all 4 extremities. Extremities: Bilateral 4+ pitting pedal edema Skin: No rash or ecchymoses. Results: Labs 06/19/24 04:10 06/19/24 04:10 Labs: Short CBC 06/18/24 Range/Units 23:45 WBC 7.9 (3.8-10.6) Thou/mm3 Hgb 12.7 L (13.5-16.0) g/dL Hct 39.2 L (41.0-53.0) % Plt Count 148 (140-440) Thou/mm3 BMP 06/18/24 22:25 Sodium 139 Potassium 4.3 Chloride 108 H Carbon Dioxide 19.6 L BUN 32 H Creatinine 1.3 Glucose 114 H Calcium 8.0 L Cardiac Enzymes 06/18/24 Range/Units 22:25 Troponin I 0.079 H* (0.0-0.045) ng/mL Liver Function 06/18/24 Range/Units 22:25 Total Bilirubin 1.4 H (0.3-1.2) mg/dL AST 44 H (0-34) U/L ALT 24 (10-49) U/L Alkaline Phosphatase 166 H (46-116) U/L Albumin 3.7 (3.4-4.8) gm/dL ABG Interpretation ABG results: 06/18/24 06/19/24 23:17 00:41 ABG pH 7.42 7.30 L D ABG pCO2 27 L 30 L ABG pO2 149 H 436 H D ABG HCO3 18 L 15 L ABG O2 Saturation 100 H 101 H ABG Base Excess -6 L -11 L Quality Measures Quality Measures sepsis Current suspected stage: ruled out Possible source: unknown Blood cultures ordered: yes Antibiotic ordered: No Medications Home Medications and Allergies Home Medications ?Medication ?Instructions ?Recorded ?Confirmed ?Type albuterol sulfate 90 mcg/actuation inhalation 05/30/24 History aerosol inhaler amoxicillin 875 mg tablet mg 05/30/24 History apixaban 5 mg tablet (Eliquis) 5 mg PO BID 05/30/24 05/30/24 History aspirin 81 mg chewable tablet 81 mg PO QDAY 05/30/24 05/30/24 History atorvastatin 40 mg tablet 40 mg PO 1XD 05/30/24 05/30/24 History bumetanide 2 mg tablet mg 05/30/24 History doxycycline hyclate 100 mg tablet mg 05/30/24 History metoprolol succinate 25 mg mg PO 05/30/24 History tablet,extended release 24 hr Allergies Allergy/AdvReac Type Severity Reaction Status Date / Time No Known Allergies Allergy Verified 06/11/24 12:46 Visit Medications Discontinued Medications Diphenhydramine HCl (Diphenhydramine Inj 50 Mg/Ml Vial) 50 mg IVP X1 ONE Stop: 06/19/24 00:12 Last Admin: 06/19/24 00:36 Dose: Not Given Furosemide (Furosemide Inj 10 Mg/Ml 4ml Vial) 40 mg IVP X1 ONE Stop: 06/18/24 23:35 Last Admin: 06/18/24 23:42 Dose: 40 mg Ceftriaxone Sodium 1,000 mg/ (Sodium Chloride) 50 mls @ 100 mls/hr IV X1 ONE Stop: 06/19/24 00:06 Last Infusion: 06/19/24 00:04 Dose: Infused Ketamine HCl (Ketamine 50 Mg/Ml Vial 10 Ml) 75 mg IVP X1 ONE Stop: 06/18/24 23:59 Last Admin: 06/19/24 00:02 Dose: 75 mg Nitroglycerin (Nitroglycerin Oint 2% 1 Inch Packet) 1 inch TOP X1 ONE Stop: 06/19/24 02:01 Last Admin: 06/19/24 02:07 Dose: 1 inch Assessment & Plan Plan 64-year-old male with past medical history of hypertension, hyperlipidemia,methamphetamine abuse last intake 3 days before the day of admission, 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 # Acute hypoxic respiratory failure # Acute exacerbation of heart failure # Dilated cardiomyopathy, HFrEF 20 to 25% # Drug incompliance, methamphetamine abuse -Presented with shortness of breath and worsened lower extremity swelling -Endorsed that he is in compliant with the medications and still continuing meth usage, last used 3 days ago -Vitals at the time of admission showed blood pressure 147/101 mmHg, pulse rate 95 bpm, respiratory rate 26/min, SpO2 97% with 2 L oxygen through nasal cannula -Per ED doctor, patient was anxious for which he was given a dose of ketamine 75 mg which patient did not tolerate well but later got stabilized -On examination, patient is started on BiPAP by ED doctor saturating at 100%, clear to auscultate, bilateral 4+ pitting pedal edema -Labs showed troponin 0.079, BNP > 3280, sodium 139. ABG showed pH 7.3, pCO2 30, bicarb 15. Lactate 3.1 -Echo done on 05/24/2024 showed Dilated cadiomyopathy with severe global hypokineis . Estimated EF 20-25%, Severe biatrial dilatation -In the ED, patient received a dose of Lasix 40 Mg Plan -Sodium and fluid restriction -Oxygen and BiPAP as needed -Started on Bumex 2 Mg IV twice daily -Strict input and output monitoring -Monitor renal functions -Nebulizations as needed -Will continue aspirin 81 Mg # Mild lactic acidosis, likely type in the setting of heart failure -Lactate at the time of admission is 3.1, bicarb 19.6 -ABG showed pH 7.3, pCO2 30, bicarb 15. # Hyperbilirubinemia # Mild transaminitis Likely elevated in the setting of congestive heart failure # Elevated troponins, likely type II Likely due to dilated cardiomyopathy and acute exacerbation of heart failure -Will trend troponins # Chronic osteomyelitis -Patient had osteomyelitis of foot in 2022 and was treated with IV antibiotics through PICC line at that time -Foot x-ray left showed Osteomyelitis proximal and distal phalanges first digit and distal first metatarsal -Foot x-ray right showed Chronic erosions distal first metatarsal, differential would include erosive arthritis as well as osteomyelitis -CRP is mildly elevated Plan - MRI foot if needed -Consulted Dr Allen, ID specialist if needed # Hypertension -Patient is using metoprolol and Bumex at home -Blood pressure at the time of admission is 147/101 mmHg -Held metoprolol for now as patient is in acute exacerbation of heart failure right now -Continue to monitor blood pressures and titrate medications accordingly # Hyperlipidemia -Lipid panel during last admission is within normal limits -Resumed his home medication # Alcohol abuse # Methamphetamine abuse -Patient understands the consequences of alcohol and methamphetamine abuse -Consult social science professor Hospital Maintenance: Dispo: Telemetry DVT ppx: Lovenox GI ppx: Protonix Diet: cardiac and fluid restriction IV lines: Peripheral Code status: Full code Patient plan of care was discussed with the attending physician, Dr.cabrera Hussein Guy, PGY1 Attending Provider Attestation/Addendum I have examined the patient, reviewed labs and imaging findings, discussed the case with the resident(s), and reviewed entered orders. I agree with the plan of care as outlined in this note, with these additional summaries/recommendations: 64M well known to the service with h/o HTN, HLD, DCM 2/2 methamphetamine abuse (meth found on his person on this admission) presented to the ED with cc of worsening sob, lower ext edema. In the ED found to be tachypneic and hypoxic with CXR c/w congestion 2/2 HF. He was placed on BiPAP with improvement in sats and RR and will be admitted for aggressive diuresis for acute on chronic HFrEF exacerbation. Manjeet Larson MD
[2024-06-19 04:19] LABS: Basophils % (Auto) 0 % (0-2.5); Eosinophils % (Auto) 0 % (0-10); Hemoglobin 11.7 g/dL (13.5-16.0); Immature Granulocytes % (Auto) 0 % (0-0); Immature Granulocytes Auto 0.01 Thou/mm3 (0.00-0.00); Lymphocytes # (Auto) 0.4 Thou/mm3 (1.0-4.8); Lymphocytes % (Auto) 6 % (10-50); Mean Corpuscular HGB Conc 32.5 g/dl (31.0-37.0); Mean Corpuscular Hemoglobin 28.2 pg (25.0-35.0); Mean Corpuscular Volume 87 fL (80-100); Monocytes # (Auto) 0.2 Thou/mm3 (0.0-0.8); Monocytes % (Auto) 3 % (0-12); Neutrophils # (Auto) 6.1 Thou/mm3 (1.8-7.7); Neutrophils % (Auto) 91 % (37-80); Nucleated Red Blood Cell # 0.02 Thou/mm3 (0.00-0.00); Nucleated Red Blood Cell % 0 /100 WBC (0); Platelet Count 146 Thou/mm3 (140-440); Red Blood Count 4.15 Miln/mm3 (4.50-5.90); White Blood Count 6.8 Thou/mm3 (3.8-10.6)
[2024-06-19] MEDS: FUROSEMIDE INJ 10 MG/ML 4ML VIAL 40 MG IVP (04:21)
--- NOTE | 2024-06-19 05:17 | PC.RT ---
pt was placed on 4L nc at 04:20 tolerated well spo2 maintained at 97-98% RR20, no distress noted, pt was transfered to [facility] without any complications, bipap at bedside on stand by spo2 94% hr 87, RR21.
[2024-06-19 05:34] LABS: Alanine Aminotransferase 35 U/L (10-49); Albumin, Serum 3.8 gm/dL (3.4-4.8); Albumin/Globulin Ratio 1.3 (1.2-2.2); Alkaline Phosphatase 189 U/L (46-116); Anion Gap 15 (7-16); Aspartate Amino Transferase 51 U/L (0-34); BUN/Creatinine Ratio 29 Ratio (12-20); Bilirubin,Total 1.6 mg/dL (0.3-1.2); Blood Urea Nitrogen 40 mg/dL (9-23); Calcium 8.2 mg/dL (8.3-10.6); Calcium (Corrected) 8.4 mg/dL (8.5-10.1); Carbon Dioxide 16.9 mMol/L (20.0-31.0); Chloride 107 mMol/L (98-107); Creatinine (Component) 1.4 mg/dL (0.6-1.3); Glucose 103 mg/dL (74-106); Magnesium 1.8 mg/dL (1.6-2.6); Osmolality,Calculated 287 (275-295); Potassium 4.6 mMol/L (3.4-5.1); Sodium 139 mMol/L (136-145); Total Protein 6.8 gm/dL (5.7-8.2); eGFR 56 See Note
[2024-06-19] MEDS: ALBUTEROL/IPRATROPIUM (Duoneb) RT SOL 3 ML NEBU INH ×3 (07:30→19:45)
[2024-06-19] MEDS: ASPIRIN EC 81 MG TABEC PO (08:14)
[2024-06-19] MEDS: ENOXAPARIN SOD INJ 40 MG/0.4 ML SYRINGE SC (08:14)
[2024-06-19] MEDS: PANTOPRAZOLE 40 MG TABLET PO (08:14)
[2024-06-19] MEDS: BUMETANIDE INJ 0.25 MG/ML VIAL 4 ML 1 MG IVP ×2 (08:15→21:16)
--- NOTE | 2024-06-19 08:18 | PC.NURSE ---
HS called by Charge Nurse Alessandra stating [employer] officer was at patients bedside trying to interview patient and staff. HS went to the floor officer was waiting at the door, explained to officer Stephania Enriquez that in order to interview staff that he would have to come back when human resources or risk management was here, also explained that the Doctor has to consent for patient to be interviewed. Dr Grace called and gave verbal consent for patient to be interviewed. Patient gave consent for interview and citation and consented for HS to be present during interview. Officer asked pt his demographics and informed him that he was getting a citation for possession of controlled substance that was a misdemeanor. Patients citation placed with patient belongings. Officer then escorted out by this RN HS. Pt was alert and in no distress during interview or on officer exit. Patient answered all questions while eating breakfast. Patient was pleasant and said thank you to officer and reuben.
--- NOTE | 2024-06-19 09:00 | PC.NURSE ---
Per NOC shift nurse report, white powder substance was found by nurse upon admission. Unsure if it was found by nurse in ER or NOC shift nurse in tele. Per report, security was called after which they searched patient's belongings. White powder was confiscated by security after which law enforcement was called. Shortly after shift change in AM, police worker arrived on unit to inquire about incident.
[2024-06-19 09:39] LABS: Troponin I 0.094 ng/mL (0.0-0.045)
--- NOTE | 2024-06-19 10:36 | EKG_ITS ---
[facility] Test Date: 2024-06-19 Pat Name: NELDA LEON [facility] Gender: Male [employer] Supervisor: ALEJANDRO : 1960 Requested By: Harish Burch Order Number: [id number] Reading MD: Harish Burch Measurements Intervals [place] Rate: 95 P: 69 MI: 216 QRS: -78 QRSD: 126 T: 76 QT: 403 QTc: 508 Interpretive Statements SINUS RHYTHM WITH FIRST DEGREE AV BLOCK WITH OCCASIONAL VENTRICULAR PREMATURE COMPLEXES POSSIBLE LEFT ATRIAL ENLARGEMENT INFERIOR MYOCARDIAL INFARCTION , OF INDETERMINATE AGE WITH POSTERIOR EXTENSION Compared to ECG 06/11/2024 13:21:06 Myocardial infarct finding now present Indeterminate axis no longer present /store/S0/[id number].pdf
[2024-06-19] MEDS: Magnesium Sulfate 4 GM Ivpb 4 GM/50 ML BAG IV (11:22)
--- NOTE | 2024-06-19 13:51 | XR_ITS ---
Examination: Venous duplex lower extremity sonogram, bilateral. Exam date and time: June 19, 2024 1515 hrs. Indications: Lower leg pain today Technique: Multiple sonographic images of the deep venous system have been obtained. B-mode/2-D grayscale imaging of vascular structures and Doppler spectral analysis (waveforms) and color performed Both legs are examined. Findings: Deep venous systems do not demonstrate abnormal echogenicity. All visualized deep veins exhibit compressibility. All visualized deep veins exhibit augmentation. Impression: Negative for deep vein thrombosis
--- NOTE | 2024-06-19 13:53 | PD.RESPRO ---
Documentation for date of: 06/19/24 Subjective Subjective Interval history: No acute overnight events. He slept okay last night. Tolerating oral intake without nausea, vomiting or constipation. Denies fever, chills, headaches, chest pain, sob, cough, GI or urinary symptoms. Exam Vital Signs Temp Pulse Resp BP Pulse Ox O2 Del Method O2 Flow Rate 97.1 F 94 20 133/104 H 95 Nasal Cannula 3 06/19/24 08:00 06/19/24 13:03 06/19/24 13:03 06/19/24 08:15 06/19/24 13:03 06/19/24 08:00 06/19/24 13:03 FiO2 40 06/19/24 00:52 Narrative Exam General: Awake. Sitting on the bed with BiPAP in situ HEENT: Normocephalic, atraumatic, mucous membranes dry. Heart: Regular rate and rhythm, no murmurs. Lungs: Clear to auscultation with no wheezing or crackles. Abdomen: Soft, nondistended, nontender, positive bowel sounds. ?No guarding or rebound tenderness. Right inguinal hernia Neurologic: Alert and oriented x3, no gross neurological deficit, and patient able to move all 4 extremities. Extremities: Bilateral 4+ pitting pedal edema Skin: No rash or ecchymoses. Objective Labs 06/19/24 04:10 06/19/24 04:10 Labs: Laboratory Results - last 24 hr 06/18/24 06/18/24 06/18/24 22:25 23:17 23:45 WBC 7.9 RBC 4.56 Hgb 12.7 L Hct 39.2 L MCV 86 MCH 27.9 MCHC 32.4 RDW Std Deviation 57.5 H Plt Count 148 Neut % (Auto) 72 Lymph % (Auto) 11 [place] % (Auto) 16 H Eos % (Auto) 1 Baso % (Auto) 1 Neut # (Auto) 5.6 Lymph # (Auto) 0.8 L [place] # (Auto) 1.2 H Eos # (Auto) 0.1 Baso # (Auto) 0.1 Immature Gran # (Auto) 0.02 H Absolute Nucleated RBC 0.03 H Immature Gran % 0 Nucleated RBC % 0 Puncture Site Right Radial ABG pH 7.42 ABG pCO2 27 L ABG pO2 149 H ABG HCO3 18 L ABG O2 Saturation 100 H ABG Base Excess -6 L FiO2 30 Sodium 139 Potassium 4.3 Chloride 108 H Carbon Dioxide 19.6 L Anion Gap 11 BUN 32 H Creatinine 1.3 Estim Creat Clear Calc 58.2 L eGFR > 60 BUN/Creatinine Ratio 25 H Glucose 114 H Calculated Osmolality 285 Lactic Acid 3.1 H Calcium 8.0 L Corrected Calcium 8.2 L Magnesium Total Bilirubin 1.4 H AST 44 H ALT 24 Alkaline Phosphatase 166 H Troponin I 0.079 H* C-Reactive Prot, Quant 2.5 H B-Natriuretic Peptide > 3280 H* Total Protein 6.7 Albumin 3.7 Globulin 3.0 Albumin/Globulin Ratio 1.2 Procalcitonin 0.22 06/19/24 06/19/24 06/19/24 00:41 04:10 04:45 WBC 6.8 RBC 4.15 L Hgb 11.7 L Hct 36.0 L MCV 87 MCH 28.2 MCHC 32.5 RDW Std Deviation 59.0 H Plt Count 146 Neut % (Auto) 91 H Lymph % (Auto) 6 L [place] % (Auto) 3 Eos % (Auto) 0 Baso % (Auto) 0 Neut # (Auto) 6.1 Lymph # (Auto) 0.4 L [place] # (Auto) 0.2 Eos # (Auto) 0.0 Baso # (Auto) 0.0 Immature Gran # (Auto) 0.01 H Absolute Nucleated RBC 0.02 H Immature Gran % 0 Nucleated RBC % 0 Puncture Site Right Radial ABG pH 7.30 L D ABG pCO2 30 L ABG pO2 436 H D ABG HCO3 15 L ABG O2 Saturation 101 H ABG Base Excess -11 L FiO2 100 Sodium 139 Potassium 4.6 Chloride 107 Carbon Dioxide 16.9 L Anion Gap 15 BUN 40 H Creatinine 1.4 H Estim Creat Clear Calc 54.0 L eGFR 56 L BUN/Creatinine Ratio 29 H Glucose 103 Calculated Osmolality 287 Lactic Acid 2.0 Calcium 8.2 L Corrected Calcium 8.4 L Magnesium 1.8 Total Bilirubin 1.6 H AST 51 H ALT 35 Alkaline Phosphatase 189 H D Troponin I C-Reactive Prot, Quant B-Natriuretic Peptide Total Protein 6.8 Albumin 3.8 Globulin 3.0 Albumin/Globulin Ratio 1.3 Procalcitonin 06/19/24 08:42 WBC RBC Hgb Hct MCV MCH MCHC RDW Std Deviation Plt Count Neut % (Auto) Lymph % (Auto) [place] % (Auto) Eos % (Auto) Baso % (Auto) Neut # (Auto) Lymph # (Auto) [place] # (Auto) Eos # (Auto) Baso # (Auto) Immature Gran # (Auto) Absolute Nucleated RBC Immature Gran % Nucleated RBC % Puncture Site ABG pH ABG pCO2 ABG pO2 ABG HCO3 ABG O2 Saturation ABG Base Excess FiO2 Sodium Potassium Chloride Carbon Dioxide Anion Gap BUN Creatinine Estim Creat Clear Calc eGFR BUN/Creatinine Ratio Glucose Calculated Osmolality Lactic Acid Calcium Corrected Calcium Magnesium Total Bilirubin AST ALT Alkaline Phosphatase Troponin I 0.094 H* C-Reactive Prot, Quant B-Natriuretic Peptide Total Protein Albumin Globulin Albumin/Globulin Ratio Procalcitonin ABG Interpretation ABG results: 06/18/24 06/19/24 23:17 00:41 ABG pH 7.42 7.30 L D ABG pCO2 27 L 30 L ABG pO2 149 H 436 H D ABG HCO3 18 L 15 L ABG O2 Saturation 100 H 101 H ABG Base Excess -6 L -11 L Quality Measures Quality Measures sepsis Current suspected stage: ruled out Possible source: unknown Blood cultures ordered: yes Antibiotic ordered: Yes Assessment & Plan Assessment Current Active Medications: Generic Name Dose Route Start Last Admin Trade Name Freq PRN Reason Stop Dose Admin Acetaminophen 650 mg 06/19/24 02:45 Acetaminophen 325 Mg Tablet PO 07/19/24 02:44 Q6H PRN Fever >101.5 Albuterol/Ipratropium 3 ml 06/19/24 07:00 06/19/24 13:02 Albuterol/Ipratropium (Duoneb) Rt Lacie 3 Ml Nebu INH 07/19/24 06:59 3 ml Q6HRRT JANETTE Administration Apixaban 5 mg 06/19/24 21:00 Apixaban 2.5 Mg Tablet PO 07/19/24 20:59 BID JANETTE Aspirin 81 mg 06/19/24 09:00 06/19/24 08:14 Aspirin Ec 81 Mg Tabec PO 07/19/24 08:59 81 mg QDAY JANETTE Administration Atorvastatin Calcium 40 mg 06/19/24 21:00 Atorvastatin Calcium 20 Mg Tablet PO 07/19/24 20:59 HS JANETTE Bumetanide 1 mg 06/19/24 09:00 06/19/24 08:15 Bumetanide Inj 0.25 Mg/Ml Vial 4 Ml IVP 07/19/24 08:59 1 mg BID JANETTE Administration Enoxaparin Sodium 40 mg 06/19/24 09:00 06/19/24 08:14 Enoxaparin Sod Inj 40 Mg/0.4 Ml Syringe SC 07/03/24 08:59 40 mg QDAY JANETTE Administration Magnesium Sulfate 4 gm in 50 mls @ 12.5 mls/hr 06/19/24 10:26 06/19/24 11:22 Magnesium Sulfate Ivpb IV 06/19/24 14:25 12.5 mls/hr X1 ONE Administration Magnesium Hydroxide 30 ml 06/19/24 02:45 Milk Of Magnesia Susp 30 Ml Udc PO 07/19/24 02:44 QDAY PRN CONSTIPATION Protocol Ondansetron HCl 4 mg 06/19/24 02:45 Ondansetron Inj 2 Mg/Ml Inj 2 Ml IV 07/19/24 02:44 Q6H PRN NAUSEA OR VOMITING Protocol Pantoprazole Sodium 40 mg 06/19/24 09:00 06/19/24 08:14 Pantoprazole 40 Mg Tablet PO 07/19/24 08:59 40 mg QDAY JANETTE Administration Plan In summary: 64-year-old male PMH as HFrEF EF 20-25% with recurrent exacerbation, METHAMPHETAMINE use, dilated cardiomyopathy, HTN, HLD, cholelithiasis, hepatitis C, chronic left foot osteomyelitis, and homelessness presenting with intermittent abdominal pain and elevated trops. Admitted for AHRF in settings of CHF exacerbation. Continued on diuresis. AHRF 2/2 CHF exacerbation HFrEF, EF 20-25% Dilated cardiomyopathy METHAMPHETAMINE use Presented with SOB and abdominal pain, crackles and bilateral LE pitting edema on exam. BNP >3280. CXR mild CHF superimposed pneumonia. History of medication noncompliance 2/2 homelessness. ECHO 06/07 showed EF 20-25%. 1 L urine output after diuresis. Now on room air satting well. ? Resumed home BUMEX 1 mg IV BID ? Resumed home ENTRESTO BID ? Holding METOPROLOL in setting of CHF exacerbation ? Fluid restriction ? Strict GABRIELLE's ? Physical therapy ? DuoNebs ? Oxygen as needed Troponinemia, type II HTN, HLD Troponins 0.079 > 0.118. EKG sinus rhythm without acute ST changes. Patient asymptomatic without chest pain or shortness of breath. Likely demand ischemia in setting of CHF exacerbation. BP and HR within normal limits. ? Continue ASPIRIN 81 mg daily ? Continue ATORVASTATIN 40 mg HS Chronic LV thrombus From previous admission ? Resumed home ELIQUIS 5 mg BID Acute transaminitis Hepatitis C Chronically elevated LFTs, with acute rise from baseline. Likely chronic hepatitis and congestive hepatopathy in settings of CHF. Dissipate improvement with intravascular optimization ? Daily CMP ? Recommended outpatient follow-up for hepatitis management. Chronic left foot osteomyelitis Concern for left LE DVT History of osteomyelitis. Left foot XR showed osteomyelitis of fifth and first digit. Right foot XR showed chronic erosion of first metatarsal possible arthritis versus osteomyelitis. Afebrile, no leukocytosis. On previous admission, ID recommended DOXYCYCLINE, patient did not complete therapy outpatient. On exam bilateral extremity appeared swollen, more so on the left concerning for left DVT. ? Started DOXYCYCLINE (/5 to [present]) ? Started CEFTRIAXONE 2 mg daily (5 to [present]) ? Pending venous US lower extremity Lactic acidosis, type B (resolved) In settings of CHF exacerbation. LA 3.1 on admission, currently 2.0. Health maintenance Diet: Cardiac GI prophylaxis: PROTONIX DVT prophylaxis: ELIQUIS Antibiotics: CEFTRIAXONE, DOXYCYCLINE CODE STATUS: Full code Disposition: Pending improvement Patient case was discussed with attending, Dr. Grace and senior resident Dr. Geronimo. Harish Burch DO PGYI Attending Provider Attestation/Addendum I have examined the patient, reviewed labs and imaging findings, discussed the case with the resident(s), and reviewed entered orders. I agree with the plan of care as outlined in this note, with these additional summaries/recommendations: Patient seen at bedside. Patient noted to be somewhat agitated at bedside although is compliant and follows commands. Patient was admitted overnight for acute hypoxic respiratory failure secondary to acute CHF exacerbation. Previous echocardiogram on 05/24/2024 showed dilated cardiomyopathy with severe global hypokinesis, severe biatrial dilation, and EF of 20 to 25%. Status post BiPAP. Continue fluid restriction and IV Bumex for preload reduction. BNP greater than 3280. Start Entresto for afterload reduction. Hold starting beta-augustine in the setting of acute exacerbation. Patient has a lengthy history of medication noncompliance and counseled on cessation of methamphetamine abuse. Of note patient was found to have methamphetamine on his person in the emergency room. Patient was also found to have elevated troponins likely secondary to demand ischemia and we will continue to trend until downtrend. Patient has transaminitis and hyperbilirubinemia which is likely secondary to underlying liver disease with superimposed congestive hepatopathy. We will continue to treat underlying heart failure and monitor for improvement. Patient has history of chronic osteomyelitis dating back to 2022 and was treated with IV antibiotics as well as oral antibiotics. X-ray on admission showed osteomyelitis likely still present. Consult infectious disease. Significant bilateral lower extremity noted right worse than left. Order bilateral lower extremity ultrasound to rule out DVT. Sensation is intact bilaterally and capillary refill less than 4 seconds bilaterally. Discussed with patient we will monitor for withdrawal symptoms from methamphetamine. Repeat hematology and chemistry panel in AM. Dr. Grace
[2024-06-19 14:29] LABS: Troponin I 0.118 ng/mL (0.0-0.045)
--- NOTE | 2024-06-19 14:35 | PC.CC ---
Pt Jeremiah Sheikh is a 64 yr old male admitted to hospital services for acute CHF exacerbation. ASW met with pt at bedside to complete initial assessment. Pt is noted to be alert and oriented to person, place and situation. Pt is difficult to understand due to lack of teeth. Pt able to confirm demographic information. Pt is chronically homeless for the last 5 yrs. Pt identifies his sister Svetlana Cruz [phone] as surrogate DM. At baseline pt is independent with ambulation and with completing his ADLs. Pt is not diabetic and is not on dialysis. Pt does not requires supplemental O2. Unclear if pt has a primary provider. Per pt he would like assistance in securing an apartment. Pt receives $1200 monthly in disability. Per pt he has been residing at the [facility] for the last 2 weeks. Pt reports last using methamphetamine a few days ago.
[2024-06-19] MEDS: cefTRIAXone 2 GM in SODIUM CHLORIDE 0.9% (P) 50 ML IV (16:14)
--- NOTE | 2024-06-19 19:26 | PC.NURSE ---
On admission this morning, white powder substance found in patient belongings. Security called and they came to search patient belongings and confiscate white powder substance.
[2024-06-19 20:30] LABS: Troponin I 0.146 ng/mL (0.0-0.045)
[2024-06-19] MEDS: DOXYCYCLINE INJ 100 MG in SODIUM CHLORIDE 0.9% (P) 100 ML IV (21:15)
[2024-06-19] MEDS: ATORVASTATIN CALCIUM 20 MG TABLET 40 MG PO (21:21)
[2024-06-19] MEDS: SACUBITRIL 24 MG/VALSARTAN 26 MG TABLET 1 TAB PO (21:21)
[2024-06-19] MEDS: APIXABAN 2.5 MG TABLET 5 MG PO (21:21)
[2024-06-19 22:07] LABS: Amphetamine/Methamp Scrn,U Positive (Negative); Barbiturate Screen,Urine Negative (Negative); Benzodiazepines Screen,Urine Negative (Negative); Benzoylecgonine Screen, Ur Negative (Negative); Fentanyl Screen,Urine Negative (Negative); Opiate Screen,Urine Negative (Negative); THC Screen,Urine Negative (Negative)
[2024-06-19] MEDS: MELATONIN 3 MG TABLET PO (22:23)
--- NOTE | 2024-06-19 22:36 | PC.NURSE ---
called doctor Guy about patients latest troponin level of 0.146 and she said okay no orders have made
[2024-06-20] VITALS (14 sets, daily range): BP systolic 96–128; BP diastolic 73–97; PULSE 67–134; RESP 13–23; TEMP 35.9–36.6; O2SAT 92–100; BMI 25.7; BMI 14.0
[2024-06-20] MEDS: ALBUTEROL/IPRATROPIUM (Duoneb) RT SOL 3 ML NEBU INH ×4 (00:58→19:35)
[2024-06-20 06:00] LABS: Basophils # (Auto) 0.1 Thou/mm3 (0.0-0.2); Basophils % (Auto) 1 % (0-2.5); Eosinophils # (Auto) 0.3 Thou/mm3 (0.0-0.5); Eosinophils % (Auto) 4 % (0-10); Hematocrit 39.6 % (41.0-53.0); Immature Granulocytes % (Auto) 0 % (0-0); Immature Granulocytes Auto 0.02 Thou/mm3 (0.00-0.00); Lymphocytes # (Auto) 1.2 Thou/mm3 (1.0-4.8); Lymphocytes % (Auto) 14 % (10-50); Mean Corpuscular HGB Conc 32.8 g/dl (31.0-37.0); Mean Corpuscular Hemoglobin 27.7 pg (25.0-35.0); Mean Corpuscular Volume 84 fL (80-100); Monocytes # (Auto) 1.1 Thou/mm3 (0.0-0.8); Monocytes % (Auto) 13 % (0-12); Neutrophils # (Auto) 5.7 Thou/mm3 (1.8-7.7); Neutrophils % (Auto) 68 % (37-80); Nucleated Red Blood Cell % 0 /100 WBC (0); Platelet Count 156 Thou/mm3 (140-440); RDW Standard Deviation 56.7 fL (35.1-43.9); Red Blood Count 4.69 Miln/mm3 (4.50-5.90); White Blood Count 8.3 Thou/mm3 (3.8-10.6)
[2024-06-20 06:31] LABS: Alanine Aminotransferase 25 U/L (10-49); Albumin/Globulin Ratio 0.9 (1.2-2.2); Alkaline Phosphatase 148 U/L (46-116); Anion Gap 10 (7-16); Aspartate Amino Transferase 40 U/L (0-34); BUN/Creatinine Ratio 18 Ratio (12-20); Bilirubin,Total 1.3 mg/dL (0.3-1.2); Blood Urea Nitrogen 25 mg/dL (9-23); Calcium 7.9 mg/dL (8.3-10.6); Calcium (Corrected) 8.7 mg/dL (8.5-10.1); Carbon Dioxide 26.3 mMol/L (20.0-31.0); Chloride 104 mMol/L (98-107); Creatinine (Component) 1.4 mg/dL (0.6-1.3); Globulin 3.2 gm/dL (2.3-3.5); Glucose 96 mg/dL (74-106); Magnesium 1.8 mg/dL (1.6-2.6); Osmolality,Calculated 283 (275-295); Phosphorous 3.4 mg/dL (2.4-5.1); Potassium 3.5 mMol/L (3.4-5.1); Sodium 140 mMol/L (136-145); Total Protein 6.2 gm/dL (5.7-8.2); eGFR 56 See Note
[2024-06-20 07:08] LABS: Hepatitis A Antibody IgM Non Reactive (Non React); Hepatitis B Core Antibody IgM Non Reactive (Non React); Hepatitis B Surface Antigen Non Reactive (Non React); Hepatitis C Antibody Reactive (Non React)
[2024-06-20 07:56] LABS: HIV (1&2) Antibody Rapid Non-Reactive
[2024-06-20] MEDS: cefTRIAXone 2 GM in SODIUM CHLORIDE 0.9% (P) 50 ML IV (08:17)
[2024-06-20] MEDS: DOXYCYCLINE INJ 100 MG in SODIUM CHLORIDE 0.9% (P) 100 ML IV ×2 (08:18→20:17)
[2024-06-20] MEDS: MAGNESIUM OXIDE 400 MG TABLET PO (08:19)
[2024-06-20] MEDS: PANTOPRAZOLE 40 MG TABLET PO (08:19)
[2024-06-20] MEDS: SACUBITRIL 24 MG/VALSARTAN 26 MG TABLET 1 TAB PO ×2 (08:19→20:14)
[2024-06-20] MEDS: POTASSIUM CHLORIDE 20 mEq TABCR 40 MEQ PO (08:19)
[2024-06-20] MEDS: APIXABAN 2.5 MG TABLET 5 MG PO ×2 (08:19→20:14)
[2024-06-20] MEDS: ASPIRIN EC 81 MG TABEC PO (08:19)
[2024-06-20] MEDS: BUMETANIDE INJ 0.25 MG/ML VIAL 4 ML 2 MG IVP ×2 (08:37→20:21)
--- NOTE | 2024-06-20 08:59 | XR_ITS ---
Examination: AP chest single view Technique one AP portable sitting chest single view Exam date and time: June 20, 2024 0908 hours Comparison June 18, 2024 INDICATIONS: Chest pain today. FINDINGS: Significant bibasilar pneumonia Mild heart failure, moderate enlargement left ventricle with prominent vascular congestion Prominent osteopenia IMPRESSION: Bibasilar pneumonia Mild CHF
[2024-06-20 09:01] LABS: Troponin I 0.145 ng/mL (0.0-0.045)
--- NOTE | 2024-06-20 10:00 | PC.NURSE ---
Pt refused EKG. notified.
--- NOTE | 2024-06-20 11:32 | ESPR_ITS ---
Subjective Subjective Interval history: hep c and foot osteo, chronic Exam Vital Signs Temp Pulse Resp BP Pulse Ox O2 Del Method O2 Flow Rate 96.6 F L 80 19 128/81 94 L Nasal Cannula 3 06/20/24 08:00 06/20/24 08:37 06/20/24 08:00 06/20/24 08:37 06/20/24 08:00 06/20/24 08:00 06/20/24 08:00 FiO2 40 06/20/24 08:00 Narrative Exam pt had po rx before and it did not seem to work sufficiently Objective - Internal Medicine Labs 06/20/24 05:13 06/20/24 05:13 Labs: Laboratory Results - last 24 hr 06/19/24 06/19/24 06/19/24 13:30 19:50 21:35 WBC RBC Hgb Hct MCV MCH MCHC RDW Std Deviation Plt Count Neut % (Auto) Lymph % (Auto) [place] % (Auto) Eos % (Auto) Baso % (Auto) Neut # (Auto) Lymph # (Auto) [place] # (Auto) Eos # (Auto) Baso # (Auto) Immature Gran # (Auto) Absolute Nucleated RBC Immature Gran % Nucleated RBC % Sodium Potassium Chloride Carbon Dioxide Anion Gap BUN Creatinine Estim Creat Clear Calc eGFR BUN/Creatinine Ratio Glucose Calculated Osmolality Calcium Corrected Calcium Phosphorus Magnesium Total Bilirubin AST ALT Alkaline Phosphatase Troponin I 0.118 H* 0.146 H* Total Protein Albumin Globulin Albumin/Globulin Ratio Urine Opiates Screen Negative Urine Fentanyl Screen Negative Ur Barbiturates Screen Negative U Amphetamin/Meth Scrn Positive A U Benzodiazepines Scrn Negative U Cocaine Metab Screen Negative U Marijuana (THC) Screen Negative Hepatitis A IgM Ab Hep Bs Antigen Hep B Core IgM Ab Hepatitis C Antibody HIV 1&2 Antibody Rapid 06/20/24 05:13 WBC 8.3 RBC 4.69 Hgb 13.0 L Hct 39.6 L MCV 84 MCH 27.7 MCHC 32.8 RDW Std Deviation 56.7 H Plt Count 156 Neut % (Auto) 68 Lymph % (Auto) 14 [place] % (Auto) 13 H Eos % (Auto) 4 Baso % (Auto) 1 Neut # (Auto) 5.7 Lymph # (Auto) 1.2 [place] # (Auto) 1.1 H Eos # (Auto) 0.3 Baso # (Auto) 0.1 Immature Gran # (Auto) 0.02 H Absolute Nucleated RBC 0.00 Immature Gran % 0 Nucleated RBC % 0 Sodium 140 Potassium 3.5 D Chloride 104 Carbon Dioxide 26.3 Anion Gap 10 BUN 25 H Creatinine 1.4 H Estim Creat Clear Calc 54.0 L eGFR 56 L BUN/Creatinine Ratio 18 Glucose 96 Calculated Osmolality 283 Calcium 7.9 L Corrected Calcium 8.7 Phosphorus 3.4 Magnesium 1.8 Total Bilirubin 1.3 H AST 40 H ALT 25 Alkaline Phosphatase 148 H D Troponin I 0.145 H* Total Protein 6.2 Albumin 3.0 L D Globulin 3.2 Albumin/Globulin Ratio 0.9 L Urine Opiates Screen Urine Fentanyl Screen Ur Barbiturates Screen U Amphetamin/Meth Scrn U Benzodiazepines Scrn U Cocaine Metab Screen U Marijuana (THC) Screen Hepatitis A IgM Ab Non Reactive Hep Bs Antigen Non Reactive Hep B Core IgM Ab Non Reactive Hepatitis C Antibody Reactive A HIV 1&2 Antibody Rapid Non-Reactive ABG Interpretation ABG results: 06/18/24 06/19/24 23:17 00:41 ABG pH 7.42 7.30 L D ABG pCO2 27 L 30 L ABG pO2 149 H 436 H D ABG HCO3 18 L 15 L ABG O2 Saturation 100 H 101 H ABG Base Excess -6 L -11 L Assessment & Plan A&P Narrative pt has idu and was seen by me a year ago or so. has meth associated cardiomyopathy, hep c pos. unclear if active or not I can see him in clinic if he is referred for f/u for the hep c with labs as ordered if you can place him for abx, ok to try rocephin 2 gm iv daily and po doxy 100 bid for 6 weeks from date of admit with weekly cbc, renal panel, esr and line removal at end of rx if unable to be placed, can try po doxy alone 100 bid for 6 weeks. I am not sure what he took before, he seems to recall only a mg dose and it sounds like zyvox 600 bid Time Spent With Patient Time: Total time spent is greater than 50% in coordination of care (as documented) at patient's floor/unit and/or counseling patient:
[2024-06-20 12:18] LABS: Misc Send Out* See Sep Rpt
--- NOTE | 2024-06-20 14:38 | ESPR_ITS ---
<Statement entered by Va Geronimo MD - 06/20/24 15:57> Patient was examined bedside this morning, he complained of mild chest pain on bilateral chest most likely pleuritic and pain abdomen as well. His tropes are trending down. Dr Allen recommended 2 g of IV Rocephin and Doxy 100 twice daily for 6 weeks, we will talk with social work and do a PICC line if we get a SNF. Herlinda Dr Allen recommended we can do Doxy alone 100 twice daily for 6-week. As per social scientist he has a history of leaving AMA from SNF. I discussed with and supervised my co-resident involved in the care of this patient. I agree with the assessment and plan as documented above. Va Geronimo,PGY-3 Disclaimer: Despite multiple revisions, due to the dictation software being used, the document below may not be free of grammatical errors including phonetic/typographic errors. However, this does not deter from our commitment to providing health care in the patient's best interest in mind. Documentation for date of: 06/20/24 Subjective Subjective Interval history: No acute overnight events. Complaining of bilateral shoulder pain. Tolerating oral intake without nausea or vomiting. Denies fever, chills, headaches, chest pain, sob, cough, GI or urinary symptoms. Exam Vital Signs Temp Pulse Resp BP Pulse Ox O2 Del Method O2 Flow Rate 97.6 F 85 20 96/73 100 Room Air 3 06/20/24 12:00 06/20/24 12:32 06/20/24 12:32 06/20/24 12:19 06/20/24 12:32 06/20/24 12:00 06/20/24 08:00 FiO2 40 06/20/24 08:00 Narrative Exam General: Awake. Sitting on the bed with BiPAP in situ HEENT: Normocephalic, atraumatic, mucous membranes dry. Heart: Regular rate and rhythm, no murmurs. Lungs: Clear to auscultation with no wheezing or crackles. Abdomen: Soft, nondistended, nontender, positive bowel sounds. ?No guarding or rebound tenderness. Right inguinal hernia Neurologic: Alert and oriented x3, no gross neurological deficit, and patient able to move all 4 extremities. Extremities: Bilateral 4+ pitting pedal edema Skin: No rash or ecchymoses. Objective Labs 06/21/24 05:05 06/21/24 05:05 Labs: Laboratory Results - last 24 hr 06/19/24 06/19/24 06/20/24 19:50 21:35 05:13 WBC 8.3 RBC 4.69 Hgb 13.0 L Hct 39.6 L MCV 84 MCH 27.7 MCHC 32.8 RDW Std Deviation 56.7 H Plt Count 156 Neut % (Auto) 68 Lymph % (Auto) 14 [place] % (Auto) 13 H Eos % (Auto) 4 Baso % (Auto) 1 Neut # (Auto) 5.7 Lymph # (Auto) 1.2 [place] # (Auto) 1.1 H Eos # (Auto) 0.3 Baso # (Auto) 0.1 Immature Gran # (Auto) 0.02 H Absolute Nucleated RBC 0.00 Immature Gran % 0 Nucleated RBC % 0 Sodium 140 Potassium 3.5 D Chloride 104 Carbon Dioxide 26.3 Anion Gap 10 BUN 25 H Creatinine 1.4 H Estim Creat Clear Calc 54.0 L eGFR 56 L BUN/Creatinine Ratio 18 Glucose 96 Calculated Osmolality 283 Calcium 7.9 L Corrected Calcium 8.7 Phosphorus 3.4 Magnesium 1.8 Total Bilirubin 1.3 H AST 40 H ALT 25 Alkaline Phosphatase 148 H D Troponin I 0.146 H* 0.145 H* Total Protein 6.2 Albumin 3.0 L D Globulin 3.2 Albumin/Globulin Ratio 0.9 L Urine Opiates Screen Negative Urine Fentanyl Screen Negative Ur Barbiturates Screen Negative U Amphetamin/Meth Scrn Positive A U Benzodiazepines Scrn Negative U Cocaine Metab Screen Negative U Marijuana (THC) Screen Negative Hepatitis A IgM Ab Non Reactive Hep Bs Antigen Non Reactive Hep B Core IgM Ab Non Reactive Hepatitis C Antibody Reactive A HIV 1&2 Antibody Rapid Non-Reactive ABG Interpretation ABG results: 06/18/24 06/19/24 23:17 00:41 ABG pH 7.42 7.30 L D ABG pCO2 27 L 30 L ABG pO2 149 H 436 H D ABG HCO3 18 L 15 L ABG O2 Saturation 100 H 101 H ABG Base Excess -6 L -11 L Quality Measures Quality Measures sepsis Current suspected stage: ruled out Possible source: unknown Blood cultures ordered: yes Antibiotic ordered: Yes Assessment & Plan Assessment Current Active Medications: Generic Name Dose Route Start Last Admin Trade Name Freq PRN Reason Stop Dose Admin Acetaminophen 650 mg 06/19/24 02:45 Acetaminophen 325 Mg Tablet PO 07/19/24 02:44 Q6H PRN Fever >101.5 Albuterol/Ipratropium 3 ml 06/19/24 07:00 06/20/24 12:32 Albuterol/Ipratropium (Duoneb) Rt Lacie 3 Ml Nebu INH 07/19/24 06:59 3 ml Q6HRRT JANETTE Administration Apixaban 5 mg 06/19/24 21:00 06/20/24 08:19 Apixaban 2.5 Mg Tablet PO 07/19/24 20:59 5 mg BID JANETTE Administration Aspirin 81 mg 06/19/24 09:00 06/20/24 08:19 Aspirin Ec 81 Mg Tabec PO 07/19/24 08:59 81 mg QDAY JANETTE Administration Atorvastatin Calcium 40 mg 06/19/24 21:00 06/19/24 21:21 Atorvastatin Calcium 20 Mg Tablet PO 07/19/24 20:59 40 mg HS JANETTE Administration Bumetanide 2 mg 06/20/24 07:41 06/20/24 08:37 Bumetanide Inj 0.25 Mg/Ml Vial 4 Ml IVP 07/19/24 08:59 2 mg BID JANETTE Administration Doxycycline Hyclate 100 mg/ 100 mls @ 100 mls/hr 06/19/24 21:00 06/20/24 08:18 Sodium Chloride IV 06/26/24 20:59 100 mls/hr BID JANETTE Administration Ceftriaxone Sodium 2 gm/ 50 mls @ 100 mls/hr 06/19/24 16:00 06/20/24 08:17 Sodium Chloride IV 06/26/24 15:59 100 mls/hr QDAY JANETTE Administration Magnesium Hydroxide 30 ml 06/19/24 02:45 Milk Of Magnesia Susp 30 Ml Udc PO 07/19/24 02:44 QDAY PRN CONSTIPATION Protocol Metoprolol Succinate 25 mg 06/20/24 10:00 06/20/24 12:19 Metoprolol Succinate Xl 25 Mg Tabcr PO 07/20/24 09:59 Not Given QDAY JANETTE Ondansetron HCl 4 mg 06/19/24 02:45 Ondansetron Inj 2 Mg/Ml Inj 2 Ml IV 07/19/24 02:44 Q6H PRN NAUSEA OR VOMITING Protocol Pantoprazole Sodium 40 mg 06/19/24 09:00 06/20/24 08:19 Pantoprazole 40 Mg Tablet PO 07/19/24 08:59 40 mg QDAY JANETTE Administration Sacubitril/Valsartan 1 tab 06/19/24 21:00 06/20/24 08:19 Sacubitril 24 Mg/Valsartan 26 Mg Tablet PO 07/19/24 20:59 1 tab BID JANETTE Administration Plan In summary: 64-year-old male PMH as HFrEF EF 20-25% with recurrent exacerbation, METHAMPHETAMINE use, dilated cardiomyopathy, HTN, HLD, cholelithiasis, hepatitis C, chronic left foot osteomyelitis, and homelessness presenting with intermittent abdominal pain and elevated trops. Admitted for AHRF in settings of CHF exacerbation. Continued on diuresis. AHRF 2/2 CHF exacerbation HFrEF, EF 20-25% Dilated cardiomyopathy METHAMPHETAMINE use Presented with SOB and abdominal pain, crackles and bilateral LE pitting edema on exam. BNP >3280. CXR mild CHF superimposed pneumonia. History of medication noncompliance 2/2 homelessness. ECHO 06/07 showed EF 20-25%. On 3 L NC, satting well. No pitting edema or crackles on exam. Noted status 915 positive. ? Resumed home BUMEX 1 mg IV BID ? Resumed home ENTRESTO BID ? Resumed home METOPROLOL 25 mg daily ? Fluid restriction ? Strict GABRIELLE's ? Physical therapy ? DuoNebs ? Oxygen as needed Troponinemia, type II HTN, HLD Likely demand ischemia. Troponin peak 0.146. Admission EKG showed sinus rhythm without acute ST changes. This morning complained of bilateral shoulder, repeat troponin was 0.145. Patient refused EKG. CXR this morning, redemonstrated bibasilar pneumonia and mild CHF. Currently asymptomatic without chest pain or shortness of breath ? Continue ASPIRIN 81 mg daily ? Continue ATORVASTATIN 40 mg HS Chronic LV thrombus From previous admission ? Resumed home ELIQUIS 5 mg BID Acute transaminitis Hepatitis C Chronically elevated LFTs, with acute rise from baseline. Likely chronic hepatitis and congestive hepatopathy in settings of CHF. Dissipate improvement with intravascular optimization ? Daily CMP ? Recommended outpatient follow-up for hepatitis management. Chronic left foot osteomyelitis Concern for left LE DVT Positive MRSA nasal screen History of osteomyelitis. Left foot XR showed osteomyelitis of fifth and first digit. Right foot XR showed chronic erosion of first metatarsal possible arthritis versus osteomyelitis. Afebrile, no leukocytosis. Venous Doppler of bilateral lower extremity negative for DVT. ID recommended CEFTRIAXONE 2 mg daily and DOXYCYCLINE BID for 6 weeks. However, patient less likely a candidate for PICC and SNF given active drug use. ID okay with DOXYCYCLINE p.o. alone. Will continue CEFTRIAXONE inpatient. Discharged on DOXYCYCLINE p.o. ? Continue DOXYCYCLINE 100 mg BID (/5 to [present]) ? Continue CEFTRIAXONE 2 g daily (/5 to [present]) ? Weekly CBC, renal panel, ESR - if continued on CEFTRIAXONE Lactic acidosis, type B (resolved) In settings of CHF exacerbation. LA 3.1 on admission, currently 2.0. Health maintenance Diet: Cardiac GI prophylaxis: PROTONIX DVT prophylaxis: ELIQUIS Antibiotics: CEFTRIAXONE, DOXYCYCLINE CODE STATUS: Full code Disposition: Pending improvement Patient case was discussed with attending, Kiko Ortega MD and senior residents Dr. Geronimo and Dr. Perdomo. Harish Burch DO PGYI Attending Provider Attestation/Addendum I reviewed labs, imaging, EKG, home medications and prior available records. Face to face evaluation was performed by me. I have personally examined the patient and discussed assessment and plan with the IM team. I reviewed the resident note and agree with the plan with exceptions as below. Acute exacerbation of CHF HFpEF EF 20 to 25% Left foot osteomyelitis, possibly subacute Hepatitis C Homelessness Continue IV diuresis. Continue Entresto. Start metoprolol XL Consulted ID for antibiotic guidance and started empiric treatment Follow-up for the hepatitis C as outpatient Work with social scientist for placement
--- NOTE | 2024-06-20 14:56 | PC.SS ---
Rounding note; SS was informed during rounding that patient needs Pic Line. SS met with patient at bedside and he is agreeable to discharge to SNF for IV ABX. SS submitted SNF inquiry through [employer] platform to all local facilities. If patient does not get accepted, patient will need to discharge on PO ABX, per 's rec's.
--- NOTE | 2024-06-20 16:20 | ESCONSULT_ITS ---
RE: NELDA LEON : 1960 DATE OF CONSULTATION: 06/20/2024 REFERRING PHYSICIAN: Dr. Larson REASON FOR CONSULTATION: Heart failure and chronic osteomyelitis of the foot. HISTORY OF PRESENT ILLNESS: The patient is here for heart failure and chronic osteomyelitis of his foot as well. He is homeless. He has hepatitis C as well and was seen by me for different problem entirely about a year ago. He does recall receiving chronic treatment for osteomyelitis with some sort of p.o. antibiotic at about a year ago he took for several weeks. He does not recall what it was. He seems to recall a milligram strength of about 600 mg. It sounds like Zyvox. I have no idea what it was nor does the primary team document the rationale or thought process there. His surgical history includes hernia repairs on several occasions. ALLERGIES: NONE NOTED. IMMUNIZATIONS: Last tetanus about a year ago. He does take flu shot every year and had 1 COVID vaccine maybe in May and does not recall pneumococcal vaccination. FAMILY HISTORY: Unremarkable. SOCIAL HISTORY: He is homeless and uses meth. Last use was noted by the primary team to be just a couple of days prior to admission. PHYSICAL EXAMINATION: GENERAL: On exam, patient's dentition is poor. He is a pleasant gentleman, not acutely ill-appearing but does appear somewhat chronically ill. HEENT: Benign. HEART: Benign. LUNGS: Benign. ABDOMEN: Benign. LABORATORY DATA: On 05/23/2024, his INR is 1.5, so he does have some significant liver disease. His platelets are a little bit on the lowish side at 146-156, which is similar to what they were a year ago, but not bad for him. I am worried about the coags, so 1.5 is troublesome. His liver enzymes are abnormal with AST of 40, but ALT is normal at 25. His alkaline phosphatase is 148. CRP is 2.5. ASSESSMENT: 1. Chronic osteomyelitis of the foot in a nondiabetic. 2. Heart failure with cardiomyopathy. 3. Hyperlipidemia. 4. Substance use disorder. 5. Hepatitis C. RECOMMENDATIONS: Since the patient apparently failed prior p.o. treatment about a year ago, we should probably give him IV treatment, but he will probably need placement. If we cannot place him, then we will change to oral treatment again because he is homeless and we have a hard time finding a place for him to live. If we are going to give him IV treatment, it will be with Rocephin 2 g a day and oral doxycycline 100 mg p.o. b.i.d. There is no culture to guide treatment, so treatment is somewhat empiric. He has positive nasal MRSA screen and had Adela albicans and sputum in May as well. I will check on him superficially moving forward. DT: 12:21:23 TT: 15:19:00 Ref: [id number] - TID: [id number] MTDD
[2024-06-20] MEDS: MELATONIN 3 MG TABLET PO ×2 (20:14→22:32)
[2024-06-20] MEDS: ATORVASTATIN CALCIUM 20 MG TABLET 40 MG PO (20:14)
[2024-06-21] VITALS (15 sets, daily range): BP systolic 95–120; BP diastolic 64–93; PULSE 71–102; RESP 14–20; TEMP 36.1–36.6; O2SAT 96–99; BMI 25.7
[2024-06-21] MEDS: ALBUTEROL/IPRATROPIUM (Duoneb) RT SOL 3 ML NEBU INH ×4 (00:06→19:12)
[2024-06-21] MEDS: DiphenhydrAMINE INJ 50 MG/ML VIAL 25 MG IVP (02:18)
[2024-06-21 05:24] LABS: Misc Send Out* See Sep Rpt
[2024-06-21 05:37] LABS: Basophils # (Auto) 0.1 Thou/mm3 (0.0-0.2); Basophils % (Auto) 1 % (0-2.5); Eosinophils # (Auto) 0.6 Thou/mm3 (0.0-0.5); Eosinophils % (Auto) 8 % (0-10); Hematocrit 40.2 % (41.0-53.0); Hemoglobin 13.1 g/dL (13.5-16.0); Immature Granulocytes % (Auto) 0 % (0-0); Immature Granulocytes Auto 0.03 Thou/mm3 (0.00-0.00); Lymphocytes # (Auto) 1.3 Thou/mm3 (1.0-4.8); Lymphocytes % (Auto) 17 % (10-50); Mean Corpuscular HGB Conc 32.6 g/dl (31.0-37.0); Mean Corpuscular Hemoglobin 27.5 pg (25.0-35.0); Mean Corpuscular Volume 85 fL (80-100); Monocytes # (Auto) 1.3 Thou/mm3 (0.0-0.8); Monocytes % (Auto) 17 % (0-12); Neutrophils # (Auto) 4.4 Thou/mm3 (1.8-7.7); Neutrophils % (Auto) 57 % (37-80); Nucleated Red Blood Cell % 0 /100 WBC (0); Platelet Count 144 Thou/mm3 (140-440); RDW Standard Deviation 55.8 fL (35.1-43.9); Red Blood Count 4.76 Miln/mm3 (4.50-5.90); White Blood Count 7.6 Thou/mm3 (3.8-10.6)
[2024-06-21 05:49] LABS: Alanine Aminotransferase 23 U/L (10-49); Albumin, Serum 3.3 gm/dL (3.4-4.8); Albumin/Globulin Ratio 1.1 (1.2-2.2); Alkaline Phosphatase 146 U/L (46-116); Anion Gap 11 (7-16); Aspartate Amino Transferase 31 U/L (0-34); BUN/Creatinine Ratio 17 Ratio (12-20); Bilirubin,Total 0.8 mg/dL (0.3-1.2); Blood Urea Nitrogen 22 mg/dL (9-23); C-Reactive Protein 3.2 mg/dL (0.0-0.9); Calcium 7.8 mg/dL (8.3-10.6); Calcium (Corrected) 8.4 mg/dL (8.5-10.1); Carbon Dioxide 28.4 mMol/L (20.0-31.0); Chloride 101 mMol/L (98-107); Creatinine (Component) 1.3 mg/dL (0.6-1.3); Estimated Creatinine Clearance 56.3 mL/min (>60); Globulin 2.9 gm/dL (2.3-3.5); Glucose 95 mg/dL (74-106); Magnesium 1.4 mg/dL (1.6-2.6); Osmolality,Calculated 282 (275-295); Phosphorous 4.3 mg/dL (2.4-5.1); Potassium 3.6 mMol/L (3.4-5.1); Sodium 140 mMol/L (136-145); Total Protein 6.2 gm/dL (5.7-8.2); eGFR > 60 See Note
[2024-06-21 06:10] LABS: Sed Rate (ESR) 32 mm/hr (0-20)
[2024-06-21] MEDS: ASPIRIN EC 81 MG TABEC PO (08:46)
[2024-06-21] MEDS: METOPROLOL SUCCINATE XL 25 MG TABCR PO (08:46)
[2024-06-21] MEDS: SACUBITRIL 24 MG/VALSARTAN 26 MG TABLET 1 TAB PO ×2 (08:46→21:33)
[2024-06-21] MEDS: POTASSIUM CHLORIDE 20 mEq TABCR 40 MEQ PO (08:46)
[2024-06-21] MEDS: PANTOPRAZOLE 40 MG TABLET PO (08:46)
[2024-06-21] MEDS: APIXABAN 2.5 MG TABLET 5 MG PO (08:46)
[2024-06-21] MEDS: BUMETANIDE INJ 0.25 MG/ML VIAL 4 ML 2 MG IVP ×2 (08:47→21:33)
[2024-06-21] MEDS: cefTRIAXone 2 GM in SODIUM CHLORIDE 0.9% (P) 50 ML IV (08:57)
[2024-06-21] MEDS: Magnesium Sulfate 4 GM Ivpb 4 GM/50 ML BAG IV (09:36)
[2024-06-21] MEDS: DOXYCYCLINE INJ 100 MG in SODIUM CHLORIDE 0.9% (P) 100 ML IV ×2 (09:36→21:32)
[2024-06-21] MEDS: POTASSIUM CHLORIDE 20 mEq TABCR PO (09:36)
--- NOTE | 2024-06-21 10:42 | PD.RESPRO ---
Documentation for date of: 06/21/24 Subjective Subjective Interval history: No acute overnight events. Patient doing okay this morning. Doing okay on room air. Denies fever, chills, headaches, chest pain, sob, cough, GI or urinary symptoms. Exam Vital Signs Temp Pulse Resp BP Pulse Ox O2 Del Method O2 Flow Rate 97.1 F 77 20 118/87 H 97 Room Air 3 06/21/24 08:00 06/21/24 08:47 06/21/24 08:00 06/21/24 08:47 06/21/24 08:00 06/21/24 08:00 06/20/24 08:00 FiO2 40 06/20/24 08:00 Narrative Exam General: Awake. Sitting on the bed with BiPAP in situ HEENT: Normocephalic, atraumatic, mucous membranes dry. Heart: Regular rate and rhythm, no murmurs. Lungs: Clear to auscultation with no wheezing or crackles. Abdomen: Soft, nondistended, nontender, positive bowel sounds. ?No guarding or rebound tenderness. Right inguinal hernia Neurologic: Alert and oriented x3, no gross neurological deficit, and patient able to move all 4 extremities. Extremities: Resolved bilateral extremity edema Skin: No rash or ecchymoses. Objective Labs 06/21/24 05:05 06/21/24 05:05 Labs: Laboratory Results - last 24 hr 06/21/24 05:05 WBC 7.6 RBC 4.76 Hgb 13.1 L Hct 40.2 L MCV 85 MCH 27.5 MCHC 32.6 RDW Std Deviation 55.8 H Plt Count 144 Neut % (Auto) 57 Lymph % (Auto) 17 [place] % (Auto) 17 H Eos % (Auto) 8 Baso % (Auto) 1 Neut # (Auto) 4.4 Lymph # (Auto) 1.3 [place] # (Auto) 1.3 H Eos # (Auto) 0.6 H Baso # (Auto) 0.1 Immature Gran # (Auto) 0.03 H Absolute Nucleated RBC 0.00 Immature Gran % 0 Nucleated RBC % 0 ESR 32 H Sodium 140 Potassium 3.6 Chloride 101 Carbon Dioxide 28.4 Anion Gap 11 BUN 22 Creatinine 1.3 Estim Creat Clear Calc 56.3 L eGFR > 60 BUN/Creatinine Ratio 17 Glucose 95 Calculated Osmolality 282 Calcium 7.8 L Corrected Calcium 8.4 L Phosphorus 4.3 Magnesium 1.4 L Total Bilirubin 0.8 D AST 31 ALT 23 Alkaline Phosphatase 146 H C-Reactive Prot, Quant 3.2 H Total Protein 6.2 Albumin 3.3 L Globulin 2.9 Albumin/Globulin Ratio 1.1 L ABG Interpretation ABG results: 06/18/24 06/19/24 23:17 00:41 ABG pH 7.42 7.30 L D ABG pCO2 27 L 30 L ABG pO2 149 H 436 H D ABG HCO3 18 L 15 L ABG O2 Saturation 100 H 101 H ABG Base Excess -6 L -11 L Quality Measures Quality Measures sepsis Current suspected stage: ruled out Possible source: unknown Blood cultures ordered: yes Antibiotic ordered: Yes Assessment & Plan Assessment Current Active Medications: Generic Name Dose Route Start Last Admin Trade Name Freq PRN Reason Stop Dose Admin Acetaminophen 650 mg 06/19/24 02:45 Acetaminophen 325 Mg Tablet PO 07/19/24 02:44 Q6H PRN Fever >101.5 Albuterol/Ipratropium 3 ml 06/19/24 07:00 06/21/24 06:58 Albuterol/Ipratropium (Duoneb) Rt Lacie 3 Ml Nebu INH 07/19/24 06:59 3 ml Q6HRRT JANETTE Administration Apixaban 5 mg 06/19/24 21:00 06/21/24 08:46 Apixaban 2.5 Mg Tablet PO 07/19/24 20:59 5 mg BID JANETTE Administration Aspirin 81 mg 06/19/24 09:00 06/21/24 08:46 Aspirin Ec 81 Mg Tabec PO 07/19/24 08:59 81 mg QDAY JANETTE Administration Atorvastatin Calcium 40 mg 06/19/24 21:00 06/20/24 20:14 Atorvastatin Calcium 20 Mg Tablet PO 07/19/24 20:59 40 mg HS JANETTE Administration Bumetanide 2 mg 06/20/24 07:41 06/21/24 08:47 Bumetanide Inj 0.25 Mg/Ml Vial 4 Ml IVP 07/19/24 08:59 2 mg BID JANETTE Administration Doxycycline Hyclate 100 mg/ 100 mls @ 100 mls/hr 06/19/24 21:00 06/21/24 09:36 Sodium Chloride IV 07/31/24 20:59 100 mls/hr BID JANETTE Administration Ceftriaxone Sodium 2 gm/ 50 mls @ 100 mls/hr 06/19/24 16:00 06/21/24 08:57 Sodium Chloride IV 07/31/24 15:59 100 mls/hr QDAY JANETTE Administration Magnesium Sulfate 4 gm in 50 mls @ 12.5 mls/hr 06/21/24 08:03 06/21/24 09:36 Magnesium Sulfate Ivpb IV 06/21/24 12:02 12.5 mls/hr X1 ONE Administration Magnesium Hydroxide 30 ml 06/19/24 02:45 Milk Of Magnesia Susp 30 Ml Udc PO 07/19/24 02:44 QDAY PRN CONSTIPATION Protocol Metoprolol Succinate 25 mg 06/20/24 10:00 06/21/24 08:46 Metoprolol Succinate Xl 25 Mg Tabcr PO 07/20/24 09:59 25 mg QDAY JANETTE Administration Ondansetron HCl 4 mg 06/19/24 02:45 Ondansetron Inj 2 Mg/Ml Inj 2 Ml IV 07/19/24 02:44 Q6H PRN NAUSEA OR VOMITING Protocol Pantoprazole Sodium 40 mg 06/19/24 09:00 06/21/24 08:46 Pantoprazole 40 Mg Tablet PO 07/19/24 08:59 40 mg QDAY JANETTE Administration Sacubitril/Valsartan 1 tab 06/19/24 21:00 06/21/24 08:46 Sacubitril 24 Mg/Valsartan 26 Mg Tablet PO 07/19/24 20:59 1 tab BID JANETTE Administration Plan In summary: 64-year-old male PMH as HFrEF EF 20-25% with recurrent exacerbation, METHAMPHETAMINE use, dilated cardiomyopathy, HTN, HLD, cholelithiasis, hepatitis C, chronic left foot osteomyelitis, and homelessness presenting with intermittent abdominal pain and elevated trops. Admitted for AHRF in settings of CHF exacerbation. Continued on diuresis. The patient n.p.o. at midnight for PICC line tomorrow and will discharge to SNF on IV ANTIBIOTICS. AHRF 2/2 CHF exacerbation HFrEF, EF 20-25% Dilated cardiomyopathy METHAMPHETAMINE use Presented with SOB and abdominal pain, crackles and bilateral LE pitting edema on exam. BNP >3280. CXR mild CHF superimposed pneumonia. History of medication noncompliance 2/2 homelessness. ECHO 06/07 showed EF 20-25%. On 3 L NC, satting well. No pitting edema or crackles on exam. Noted status 915 positive. ? Continue home BUMEX 1 mg IV BID ? Continue home ENTRESTO BID ? Continue home METOPROLOL 25 mg daily ? Fluid restriction ? Strict GABRIELLE's ? Physical therapy ? DuoNebs ? Oxygen as needed Troponinemia, type II HTN, HLD Likely demand ischemia. Troponin peak 0.146. Admission EKG showed sinus rhythm without acute ST changes. This morning complained of bilateral shoulder, repeat troponin was 0.145. Patient refused EKG. CXR this morning, redemonstrated bibasilar pneumonia and mild CHF. Currently asymptomatic without chest pain or shortness of breath ? HOLDING ASPIRIN 81 mg daily for PICC line tomorrow ? Continue ATORVASTATIN 40 mg HS Chronic LV thrombus From previous admission ? HOLDING home ELIQUIS 5 mg BID for PICC line tomorrow Acute transaminitis Hepatitis C Chronically elevated LFTs, with acute rise from baseline. Likely chronic hepatitis and congestive hepatopathy in settings of CHF. Dissipate improvement with intravascular optimization ? Daily CMP ? Recommended outpatient follow-up for hepatitis management. Chronic left foot osteomyelitis Concern for left LE DVT Positive MRSA nasal screen History of osteomyelitis. Left foot XR showed osteomyelitis of fifth and first digit. Right foot XR showed chronic erosion of first metatarsal possible arthritis versus osteomyelitis. Afebrile, no leukocytosis. Venous Doppler of bilateral lower extremity negative for DVT. ID recommended CEFTRIAXONE 2 mg daily and DOXYCYCLINE BID for 6 weeks. However, patient less likely a candidate for PICC and SNF given active drug use. ID okay with DOXYCYCLINE p.o. alone. Will continue CEFTRIAXONE inpatient. Discharged on DOXYCYCLINE p.o. pending PICC line tomorrow will discharge on IV ANTIBIOTICS. ? Continue DOXYCYCLINE 100 mg BID (1/5 to [present]) ? Continue CEFTRIAXONE 2 g daily (1/5 to [present]) ? Weekly CBC, renal panel, ESR - if continued on CEFTRIAXONE ? Pending PICC line Lactic acidosis, type B (resolved) Health maintenance Diet: NPO midnight, Cardiac for now GI prophylaxis: PROTONIX DVT prophylaxis: SCD, holding ELIQUIS Antibiotics: CEFTRIAXONE, DOXYCYCLINE CODE STATUS: Full code Disposition: Pending improvement Patient case was discussed with attending, Kiko Ortega MD and senior residents Dr. Geronimo and Dr. Perdomo. Harish Burch, DO PGYI Senior Resident Attestation: The patient is doing much better today. The patient will get PICC line placed tomorrow as today he received 1 dose of Eliquis in the morning. We will discharge him with doxycycline 100 mg twice daily for 6 weeks and ceftriaxone 2 g daily for 6 weeks. I discussed with and supervised the international affairs vice president physician involved in the care of this patient. I personally saw and examined the patient and discussed the assessment and plan with the entire medicine team, including my attending. I agree with the assessment and plan as documented above. Eleazar Perdomo MD PGY2 Internal Medicine Attending Provider Attestation/Addendum I reviewed labs, imaging, EKG, home medications and prior available records. Face to face evaluation was performed by me. I have personally examined the patient and discussed assessment and plan with the IM team. I reviewed the resident note and agree with the plan with exceptions as below. Acute exacerbation of CHF HFpEF EF 20 to 25% Left foot osteomyelitis, possibly subacute Hepatitis C Homelessness Continue IV diuresis. Continue Entresto. Start metoprolol XL Consulted ID for antibiotic guidance and started empiric treatment ID recommended IV Rocephin/doxycycline for 6 weeks. Consulted IR for PICC line placement as he will get SNF. Follow-up for the hepatitis C as outpatient Work with social services counselor for placement. Found a SNF.
--- NOTE | 2024-06-21 11:42 | PC.SS ---
Follow up note: Patient will need i.v. antibiotics for 6 weeks. Patient will need SNF placement. [facility] has agreed to accept patient. They are aware of medical needs. Updated physician. Patient will receive picc line today. Possible d/c tomorrow. [facility] is starting authorization today. Rocephine 1 x daily. will send updated i.v. medications documentation to facility.
--- NOTE | 2024-06-21 15:33 | PC.NURSE ---
Addendum entered by Yodit Brunson RN 06/21/24 15:34: Per Dr. thayer postpone for tomorrow. Original Note: Picc line insertion postponed until tomorrow 06/22/24. lorelei OLMOS aware
--- NOTE | 2024-06-21 15:49 | PC.SS ---
Follow up note: SS received call from [facility] indicating they are not contracted with insurance and will need to get an ANIBAL. SS updated that patient was not accepted by any other facilities. They will work on ANIBAL with insurance co. Pending auth.
[2024-06-21 17:46] LABS: Syphilis Nonreactive (Nonreactive)
[2024-06-21] MEDS: ATORVASTATIN CALCIUM 20 MG TABLET 40 MG PO (21:33)
[2024-06-22] VITALS: BP 100/68; PULSE 72; PULSE 80; RESP 18; TEMP 36.2; O2SAT 97
[2024-06-22 01:48] VITALS: PULSE 80; RESP 16; O2SAT 96
[2024-06-22] MEDS: ALBUTEROL/IPRATROPIUM (Duoneb) RT SOL 3 ML NEBU INH ×2 (01:48→06:42)
[2024-06-22 02:07] LABS: Hepatitis A Antibody IgM Non Reactive (Non React); Hepatitis B Core Antibody IgM Non Reactive (Non React); Hepatitis B Surface Ab Reactive (Immune) (Immune); Hepatitis B Surface Antigen Non Reactive (Non React); Hepatitis C Antibody Reactive (Non React)
[2024-06-22 04:00] VITALS: BP 94/70; PULSE 101; PULSE 76; RESP 17; TEMP 36.1; O2SAT 98
[2024-06-22 05:26] VITALS: BMI 25.7
[2024-06-22 06:45] VITALS: PULSE 73; RESP 16; O2SAT 98
[2024-06-22 06:48] LABS: Basophils # (Auto) 0.1 Thou/mm3 (0.0-0.2); Basophils % (Auto) 2 % (0-2.5); Eosinophils # (Auto) 0.6 Thou/mm3 (0.0-0.5); Eosinophils % (Auto) 9 % (0-10); Hematocrit 42.3 % (41.0-53.0); Hemoglobin 13.7 g/dL (13.5-16.0); Immature Granulocytes % (Auto) 0 % (0-0); Immature Granulocytes Auto 0.01 Thou/mm3 (0.00-0.00); Lymphocytes # (Auto) 1.3 Thou/mm3 (1.0-4.8); Lymphocytes % (Auto) 20 % (10-50); Mean Corpuscular HGB Conc 32.4 g/dl (31.0-37.0); Mean Corpuscular Hemoglobin 27.7 pg (25.0-35.0); Mean Corpuscular Volume 86 fL (80-100); Monocytes % (Auto) 15 % (0-12); Neutrophils # (Auto) 3.8 Thou/mm3 (1.8-7.7); Neutrophils % (Auto) 55 % (37-80); Nucleated Red Blood Cell % 0 /100 WBC (0); Platelet Count 167 Thou/mm3 (140-440); RDW Standard Deviation 57.1 fL (35.1-43.9); Red Blood Count 4.95 Miln/mm3 (4.50-5.90); White Blood Count 6.8 Thou/mm3 (3.8-10.6)
[2024-06-22 07:09] LABS: Alanine Aminotransferase 23 U/L (10-49); Albumin, Serum 3.3 gm/dL (3.4-4.8); Alkaline Phosphatase 162 U/L (46-116); Anion Gap 10 (7-16); Aspartate Amino Transferase 29 U/L (0-34); BUN/Creatinine Ratio 16 Ratio (12-20); Bilirubin,Total 0.8 mg/dL (0.3-1.2); Blood Urea Nitrogen 19 mg/dL (9-23); Calcium 8.3 mg/dL (8.3-10.6); Calcium (Corrected) 8.9 mg/dL (8.5-10.1); Carbon Dioxide 28.4 mMol/L (20.0-31.0); Chloride 98 mMol/L (98-107); Creatinine (Component) 1.2 mg/dL (0.6-1.3); Globulin 3.4 gm/dL (2.3-3.5); Glucose 80 mg/dL (74-106); Magnesium 1.7 mg/dL (1.6-2.6); Osmolality,Calculated 273 (275-295); Phosphorous 3.7 mg/dL (2.4-5.1); Potassium 4.1 mMol/L (3.4-5.1); Sodium 136 mMol/L (136-145); Total Protein 6.7 gm/dL (5.7-8.2); eGFR > 60 See Note
[2024-06-22 08:00] VITALS: BP 112/86; PULSE 100; PULSE 90; RESP 20; TEMP 36.2; O2SAT 94
[2024-06-22] MEDS: cefTRIAXone 2 GM in SODIUM CHLORIDE 0.9% (P) 50 ML IV (08:26)
[2024-06-22 08:27] VITALS: BP 112/86; PULSE 90
[2024-06-22] MEDS: BUMETANIDE INJ 0.25 MG/ML VIAL 4 ML 2 MG IVP (08:27)
[2024-06-22] MEDS: DOXYCYCLINE INJ 100 MG in SODIUM CHLORIDE 0.9% (P) 100 ML IV (09:16)
[2024-06-22 09:46] LABS: INR 1.2 (0.9-1.3); Prothrombin Time 13.1 Seconds (9.0-12.2)
--- NOTE | 2024-06-22 10:53 | PC.NURSE ---
Pt. left AMA at 1045, education provided to him on the risks of leaving AMA patient was unable to be redirected, and adamently stated he wanted to leave AMA. The MD and charge nurse were notified, and all IV lines were removed from the patient. After line removal and placement of dressings the patient immediately left the floor.
--- NOTE | 2024-06-22 15:14 | PD.RESEVENT ---
Documentation for date of: 06/22/24 Event Note Event Note: This morning around 7:30 AM the patient wanted to leave AGAINST MEDICAL ADVICE. The patient was alert and oriented x 3, and was able to understand that he would if he is going to leave AMA. Multiple attempts were made to convince the patient to stay, and was asked if we could do anything else to help him so that he would get his complete treatment and then discharged. However, he was competent to make his decisions and wanted to sign AMA and leave. He signed AMA form and left. He was recommended that if his symptoms persist or worsens, he could come to emergency department anytime. The patient's management plan was discussed with my attending physician MD Eleazar Lemus MD, PGY2
== END 2024-06-22 10:45 | disposition left against medical advice (07) | DRG 194 ==
LOC: SERX 06-19 00:13 → SERHOLD 06-19 03:02 → S2NX 06-19 04:58
PROVIDERS: Internal Medicine Infectious Disease; Nurse Practitioner Family; Student in an Organized Health Care Education/Training Program; Admitting Provider Student in an Organized Health Care Education/Training Program; Emergency Provider Emergency Medicine; Visit Provider Student in an Organized Health Care Education/Training Program
DX: I11.0 Hypertensive heart disease with heart failure (principal); J96.01 Acute respiratory failure with hypoxia; E78.00 Pure hypercholesterolemia, unspecified; M86.672 Other chronic osteomyelitis, left ankle and foot; I42.0 Dilated cardiomyopathy; F15.10 Other stimulant abuse, uncomplicated; M19.90 Unspecified osteoarthritis, unspecified site; J18.9 Pneumonia, unspecified organism; I50.23 Acute on chronic systolic (congestive) heart failure; F10.10 Alcohol abuse, uncomplicated; B19.20 Unspecified viral hepatitis C without hepatic coma; E87.20 Acidosis, unspecified; K76.1 Chronic passive congestion of liver; F11.10 Opioid abuse, uncomplicated; Z59.01 Sheltered homelessness; Z22.322 Carrier or suspected carrier of Methicillin resistant Staphylococcus aureus; Z91.148 Patient's other noncompliance with medication regimen for other reason; Z87.891 Personal history of nicotine dependence; Z79.82 Long term (current) use of aspirin; Z79.899 Other long term (current) drug therapy; Z53.29 Procedure and treatment not carried out because of patient's decision for other reasons
CPT/HCPCS: 36415; 36600; 71045; 73630; 80053; 80074; 80307; 81596; 82595; 82803; 83605; 83735; 83880; 84100; 84145; 84484; 85025; 85610; 85652; 86140; 86703; 86706; 86780; 87040; 87081; 87400; 87522; 87811; 87902; 93005; 93970; 94640; 94660; 96365; 96374; 96375; 97162; 99291; A9270; J0696; J1200; J1650; J1940; J3475; J3490; J7050

== ENCOUNTER 2024-07-06 22:19 | Emergency (ER) | payer MEDICAID, SELFPAY ==
[2024-07-06 22:20] VITALS: PULSE 87; RESP 20; O2SAT 98
[2024-07-06 22:50] VITALS: BP 145/99; PULSE 87; RESP 18; TEMP 36.8; O2SAT 99; BMI 25.1
--- NOTE | 2024-07-06 22:55 | XR_ITS ---
Examination: PA lateral chest 2 views Technique: Upright PA lateral chest 2 views Exam date and time: July 11, 2024 11:16 PM Comparison June 20, 2024 Indications: Shortness of breath chest pain this week Findings: Bibasilar pneumonia Mild heart failure with moderate enlargement cardiac contour prominent vascular congestion including central vascular engorgement Impression: Bibasilar pneumonia Mild heart failure
--- NOTE | 2024-07-06 22:55 | EKG_ITS ---
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
--- NOTE | 2024-07-06 22:55 | PD.EDRME ---
Rapid Medical Screening Exam RME Arrival date/time: 07/06/24 22:19 64-year-old male with a history of hyperlipidemia, congestive heart failure, hypertension presents to the emergency room with a chief complaint of 7 out of 10 sternal chest pain, lower extremity edema x 3 days I have greeted and performed a focused initial assessment of this patient. A comprehensive ED assessment and evaluation of the patient, analysis of all test results, and completion of the medical decision making process will be conducted by additional ED providers. Chief Complaint: Chest Pain Time Seen by Provider: 07/06/24 22:46 Vital signs: Vital Signs Temperature 98.3 F 07/06/24 22:50 Pulse Rate 87 07/06/24 22:50 Respiratory Rate 18 07/06/24 22:50 Blood Pressure 145/99 H 07/06/24 22:50 Pulse Oximetry (%) 99 07/06/24 22:50 Oxygen Delivery Method Room Air 07/06/24 22:50 Vital signs reviewed by provider: Yes
[2024-07-07 00:23] LABS: Basophils # (Auto) 0.1 Thou/mm3 (0.0-0.2); Basophils % (Auto) 2 % (0-2.5); Eosinophils # (Auto) 0.3 Thou/mm3 (0.0-0.5); Eosinophils % (Auto) 4 % (0-10); Hematocrit 34.7 % (41.0-53.0); Hemoglobin 11.1 g/dL (13.5-16.0); Immature Granulocytes % (Auto) 0 % (0-0); Immature Granulocytes Auto 0.01 Thou/mm3 (0.00-0.00); Lymphocytes # (Auto) 1.3 Thou/mm3 (1.0-4.8); Lymphocytes % (Auto) 21 % (10-50); Mean Corpuscular Hemoglobin 27.5 pg (25.0-35.0); Mean Corpuscular Volume 86 fL (80-100); Monocytes # (Auto) 0.8 Thou/mm3 (0.0-0.8); Monocytes % (Auto) 14 % (0-12); Neutrophils # (Auto) 3.5 Thou/mm3 (1.8-7.7); Neutrophils % (Auto) 59 % (37-80); Nucleated Red Blood Cell % 0 /100 WBC (0); Platelet Count 141 Thou/mm3 (140-440); RDW Standard Deviation 57.6 fL (35.1-43.9); Red Blood Count 4.04 Miln/mm3 (4.50-5.90); White Blood Count 5.9 Thou/mm3 (3.8-10.6)
[2024-07-07 00:33] LABS: Alanine Aminotransferase 22 U/L (10-49); Albumin, Serum 4.3 gm/dL (3.4-4.8); Albumin/Globulin Ratio 1.3 (1.2-2.2); Alkaline Phosphatase 139 U/L (46-116); Anion Gap 11 (7-16); Aspartate Amino Transferase 36 U/L (0-34); B-Type Natriuretic Peptide 2358 pg/mL (0-100); BUN/Creatinine Ratio 25 Ratio (12-20); Bilirubin,Total 0.7 mg/dL (0.3-1.2); Blood Urea Nitrogen 28 mg/dL (9-23); Calcium 8.7 mg/dL (8.3-10.6); Calcium (Corrected) 8.7 mg/dL (8.5-10.1); Carbon Dioxide 22.5 mMol/L (20.0-31.0); Chloride 104 mMol/L (98-107); Creatinine (Component) 1.1 mg/dL (0.6-1.3); Estimated Creatinine Clearance 68.7 mL/min (>60); Globulin 3.2 gm/dL (2.3-3.5); Glucose 78 mg/dL (74-106); INR 1.1 (0.9-1.3); Magnesium 1.8 mg/dL (1.6-2.6); Osmolality,Calculated 278 (275-295); Partial Thromboplastin Time 26.5 Seconds (22.0-36.0); Prothrombin Time 11.6 Seconds (9.0-12.2); Sodium 137 mMol/L (136-145); Total Protein 7.5 gm/dL (5.7-8.2); eGFR > 60 See Note
[2024-07-07 00:34] LABS: Troponin I 0.057 ng/mL (0.0-0.045)
[2024-07-07 01:04] LABS: Collection Type, Urine Clean Catch
--- NOTE | 2024-07-07 01:40 | PD.EDCHEST ---
ED Chest Pain RME/HPI General Chief Complaint: Chest Pain Stated Complaint: chest pain Time Seen by Provider: 07/06/24 22:46 Arrival date/time: 07/06/24 22:19 Limitations: no limitations RME / HPI RME / HPI narrative: 07/06/24 22:19 64-year-old male with a history of hyperlipidemia, congestive heart failure, hypertension presents to the emergency room with a chief complaint of 7 out of 10 sternal chest pain, lower extremity edema x 3 days I have greeted and performed a focused initial assessment of this patient. A comprehensive ED assessment and evaluation of the patient, analysis of all test results, and completion of the medical decision making process will be conducted by additional ED providers. ---- Dr. Sandhu's Main ED Evaluation: 64yo male presents to the ED for a chief complaint of shortness of breath. Patient states he's been short of breath, reporting associated BLE swelling due to him walking around a lot the last 1-2 days. He states he did not use any methamphetamines today. He is compliant with his medications. Denies any chest pain, fever, chills or any other associated symptoms. No known allergies. PMHx: methamphetamine abuse, homelessness, elevated cholesterol, CHF on Bumex ,dilated cardiomyopathy with a EF of 20%, hep C, chronic left foot osteomyelitis, hypertension, hyperlipidemia Related Data Previous Rx's ?Medication ?Instructions ?Recorded apixaban 2.5 mg tablet (Eliquis) 5 mg (2 x 2.5 mg) PO BID #60 tabs 06/22/24 aspirin 81 mg tablet,delayed 81 mg PO QDAY 30 days #30 tabs 06/22/24 release (Ecotrin Low Strength) atorvastatin 40 mg tablet 40 mg PO HS 30 days #30 tabs 06/22/24 bumetanide 1 mg tablet 1 mg PO BID 30 days #60 tabs 06/22/24 ceftriaxone 2 gram solution for 2 g IV QDAY #40 ea 06/22/24 injection doxycycline hyclate 100 mg capsule 100 mg PO BID #80 caps 06/22/24 metoprolol succinate 25 mg 25 mg PO QDAY 30 days #30 tabs 06/22/24 tablet,extended release 24 hr sacubitril 24 mg-valsartan 26 mg 1 tab PO BID #30 tabs 06/22/24 tablet (Entresto) amiodarone 200 mg tablet 200 mg PO BID 30 days #60 tabs 07/14/24 potassium chloride 20 mEq oral 20 meq PO QDAY #30 ea 07/17/24 packet Allergies Allergy/AdvReac Type Severity Reaction Status Date / Time No Known Allergies Allergy Verified 06/11/24 12:46 Review of Systems Review of Systems Systems Reviewed: All systems reviewed, normal except as documented ED Exam General Limitations: Present no limitations General appearance: Present alert and in no apparent distress Head Head exam: Present atraumatic Eye Eye exam: Present normal appearance, PERRL and EOMI ENT ENT exam: Present normal exam, normal oropharynx and mucous membranes moist Neck Neck exam: Present normal inspection, full ROM and trachea midline Chest Chest inspection: Present normal inspection and symmetric chest wall rise Respiratory Respiratory exam: Present normal lung sounds bilaterally Cardiovascular Cardiovascular exam: Present regular rate, normal rhythm and normal heart sounds Abdominal Exam Abdominal exam: Present soft and normal bowel sounds Extremities Exam Extremities exam: Present normal inspection, full ROM and other (1+ pitting edema to the bilateral ankles) Back Exam Back exam: Present normal inspection and full ROM Neurological Exam Neurological exam: Present alert, oriented X3 and CN II-XII intact Psychiatric Psychiatric exam: Present normal affect and normal mood Skin Skin exam: Present warm, dry, intact and normal color Course Course Course Narrative: CXR is ordered for determining the etiology of shortness of breath. Quality Measures none Orders Category Date Time Status EKG (ED ONLY) *Do not use* NOW Care 07/06/24 22:55 Completed EKG (ED Only) Stat Exams 07/06/24 22:55 Draft XR chest 2V Stat Exams 07/06/24 22:55 Completed B-Type Natriuretic Peptide Stat Lab 07/06/24 23:31 Completed CBC Stat Lab 07/06/24 23:31 Completed Comprehensive Metabolic Panel Stat Lab 07/06/24 23:31 Completed Drug Screen,Urine Stat Lab 07/07/24 00:40 Completed Magnesium Stat Lab 07/06/24 23:31 Completed Partial Thromboplastin Time Stat Lab 07/06/24 23:31 Completed Prothrombin Time with INR Stat Lab 07/06/24 23:31 Completed Troponin I Stat Lab 07/06/24 23:31 Completed Urinalysis Stat Lab 07/07/24 00:40 Completed Vital Signs Vital signs: Vital Signs Temperature 98.3 F 07/06/24 22:50 Pulse Rate 87 07/06/24 22:50 Respiratory Rate 18 07/06/24 22:50 Blood Pressure 145/99 H 07/06/24 22:50 Pulse Oximetry (%) 99 07/06/24 22:50 Oxygen Delivery Method Room Air 07/06/24 22:50 Pulse ox is 99% on room air, which is normal according to my interpretation. Chest Pain Patient data External records reviewed:: [facility] previous records (Per chart review, patient was seen here on 06/18/24 for CHF exacerbation.) Clinical information provided by:: patient Social determinants that could affect healthcare access:: substance use (history of methamphetamine use) Patient has the following chronic illnesses:: NONE How is presenting disease/condition affected by chronic disease/condition?: exacerbated by Evaluation data The following diagnostics were reviewed and interpreted by me:: lab results, radiology exam(s) and EKG tracing(s) Lab and/or radiology exams considered but not ordered:: none Interpretation Summary: CBC is normal, BNP is elevated at 2358 (which is chronic), Troponin is elevated at 0.057 (which is chronic), UA is unremarkable, according to my interpretation. CXR appears overall improved compared to previous CXR on 06/20/24, minimal CHF, no worsening infiltrates, according to my interpretation. EKG done at 2259, NSR, rate of 72, first degree AV block, PVCs, no ST depressions, similar to previous EKG, according to my interpretation. Medications / Prescriptions Medications or Prescriptions considered but not ordered:: none Medication administrations:: none Consultations Consultation(s) initiated? (list below): No Diagnosis Chest Pain Differential Diagnosis: other (CHF exacerbation, pleural effusion, pneumonia) Most likely diagnosis given after review of the tests above:: see below Admission Indicated Admission indicated?: not indicated Admission Request Was there a request for admission?: No Disposition Plan Disposition Plan: Discharge Discharge Attestation Discharge Attestation: The patient and all family members were given an opportunity to ask questions and understood the discharge instructions. Discharge instructions specifically effects, indications for sooner follow up or return to the emergency department, and the expected course of current diagnosis. Patient condition: Stable Discharge Plan Plan Patient Disposition: HOME (Self Care) Patient condition on transfer: Stable Prescriptions/Referrals Prescriptions/Med Rec: No Action Eliquis 2.5 mg Tablet 5 mg PO BID Qty: 60 3RF atorvastatin 40 mg tablet 40 mg PO HS 30 Days Qty: 30 3RF bumetanide 1 mg tablet 1 mg PO BID 30 Days Qty: 60 3RF ceftriaxone 2 gram recon soln 2 g IV QDAY Qty: 40 0RF doxycycline hyclate 100 mg capsule 100 mg PO BID Qty: 80 0RF aspirin [Ecotrin Low Strength] 81 mg Tablet,Delayed Release (Dr/Ec) 81 mg PO QDAY 30 Days Qty: 30 3RF metoprolol succinate 25 mg Tablet Extended Release 24 Hr 25 mg PO QDAY 30 Days Qty: 30 3RF sacubitril-valsartan [Entresto] 24-26 mg Tablet 1 tab PO BID Qty: 30 3RF amiodarone 200 mg Tablet 200 mg PO BID 30 Days Qty: 60 2RF potassium chloride 20 mEq packet 20 meq PO QDAY Qty: 30 0RF Problem List Clinical Impression: Chronic breathlessness, Cardiomyopathy Patient/Caregiver Discharge Instructions Additional Instructions: Continue all your medications as per your primary care doctor. Return to the emergency department for worsening symptoms, or any other concerns Print Language: Lebanese Stand Alone Forms: Vera Award Info., Patient Portal Info Letter
[2024-07-07 01:45] LABS: Bilirubin,Urine Negative (Negative); Blood,Urine Negative (Negative); Clarity,Urine Clear (Clear/Hazy); Color,Urine Lt-Yellow (Lt Yel-Yel); Glucose, Urine Negative (Negative); Hyaline Casts,Urine < 1 /hpf (0-1); Ketones,Urine Negative (Negative); Leukocyte Esterase,Urine Negative (Negative); Nitrite,Urine Negative (Negative); Protein,Urine Trace (Neg - Trace); RBC,Urine 3 /hpf (0-3); Specific Gravity,Urine 1.017 (1.001-1.035); Squamous Epithelial Cell,Urine < 1 /hpf (0-5); Urobilinogen,Urine Negative mg/dL (0.0-1.0); WBC,Urine 1 /hpf (0-5)
[2024-07-07 02:52] LABS: Amphetamine/Methamp Scrn,U Positive (Negative); Barbiturate Screen,Urine Negative (Negative); Benzodiazepines Screen,Urine Negative (Negative); Benzoylecgonine Screen, Ur Negative (Negative); Fentanyl Screen,Urine Negative (Negative); Opiate Screen,Urine Negative (Negative); THC Screen,Urine Negative (Negative)
== END 2024-07-07 02:00 | disposition home or self-care (01) ==
LOC: SERX 07-07 06:37
PROVIDERS: Nurse Practitioner Family; Emergency Provider Emergency Medicine
DX: I42.9 Cardiomyopathy, unspecified (principal); R06.81 Apnea, not elsewhere classified; E78.5 Hyperlipidemia, unspecified; I11.0 Hypertensive heart disease with heart failure; I50.9 Heart failure, unspecified
CPT/HCPCS: 36415; 71046; 80053; 80307; 81001; 83735; 83880; 84484; 85025; 85610; 85730; 93005; 99283

== ENCOUNTER 2024-07-11 07:41 | Inpatient (IN) | payer MEDICAID, SELFPAY ==
[2024-07-11] VITALS (26 sets, daily range): BP systolic 115–150; BP diastolic 78–110; PULSE 67–115; RESP 8–27; TEMP 36.3–37; O2SAT 78–100; BMI 28.8
--- NOTE | 2024-07-11 08:19 | PD.EDEXREM ---
ED Extremity Problem RME/HPI General Chief complaint: Extremity Injury, Lower Stated complaint: RIGHT LEG PAIN Time Seen by Provider: 07/11/24 08:19 Arrival date/time: 07/11/24 07:41 RME / HPI RME / HPI Narrative: This section includes all my notes and documentations, including HPI, PE, and ED course.? Kapil Swartz MD HPI: 64 year old male with history of homelessness, HFrEF 20-25% 05/2024, cardiomyopathy, hypertension, hyperlipidemia, chronic left foot osteomyelitis, recurrent admissions for CHF exacerbation (most recent admission 06/19/24-06/22/24 where patient left against medical advice) presents to the ED BIBA for bilateral lower extremity pain today. Reports history of chronic leg pain although feels it is worse today. Accompanied by feeling short of breath he reports is exacerbated with exertion. No other complaints reported. ROS: All negative except as documented in HPI. Physical Exam: General:? Alert and oriented.? In moderate respiratory distress. Eyes:? Conjunctivae and lids clear.? ENT:? No nasal congestion.? Neck:? Supple.? No JVD. Heart:? RRR.? Lungs: Moderate respiratory distress with decreased air movement and bilateral rales. Abdomen:? Soft and nontender.?? Legs:?Bilateral leg edema and erythema. Skin:? Warm and dry.?? Neuro:?Awake. ?? I reviewed all diagnostic test results. At this point, diagnoses include?acute respiratory failure with hypoxia, sepsis, elevated D-Dimer, elevated troponin, hyperkalemia, GEOVANY, hypoglycemia, elevated TSH, elevated BNP I discussed the case with our unattended ground sensor specialist Dr. Degroot.? About the presentation and exam and diagnostics and treatments here.? And need of further care in the hospital.? Will accept the patient. Kapil Swartz MD Related Data Previous Rx's ?Medication ?Instructions ?Recorded apixaban 2.5 mg tablet (Eliquis) 5 mg (2 x 2.5 mg) PO BID #60 tabs 06/22/24 aspirin 81 mg tablet,delayed 81 mg PO QDAY 30 days #30 tabs 06/22/24 release (Ecotrin Low Strength) atorvastatin 40 mg tablet 40 mg PO HS 30 days #30 tabs 06/22/24 bumetanide 1 mg tablet 1 mg PO BID 30 days #60 tabs 06/22/24 ceftriaxone 2 gram solution for 2 g IV QDAY #40 ea 06/22/24 injection doxycycline hyclate 100 mg capsule 100 mg PO BID #80 caps 06/22/24 metoprolol succinate 25 mg 25 mg PO QDAY 30 days #30 tabs 06/22/24 tablet,extended release 24 hr sacubitril 24 mg-valsartan 26 mg 1 tab PO BID #30 tabs 06/22/24 tablet (Entresto) Allergies Allergy/AdvReac Type Severity Reaction Status Date / Time No Known Allergies Allergy Verified 06/11/24 12:46 Review of Systems Review of Systems Systems Reviewed: All systems reviewed, normal except as documented Past Medical History Past Medical History NEUROLOGIC: Positive Cerebrovascular Accident CARDIAC: Positive Cardiac Disorders, Congestive Heart Failure and Hypertension RESPIRATORY: Positive Asthma GASTROINTESTINAL: Positive Gastrointestinal Disorders, Hepatitis and Ulcer GENITOURINARY: Positive Inguinal Hernia MUSCULOSKELETAL: Positive Musculoskeletal Disorders, Arthritis, Gout and Osteomyelitis HEMATOLOGIC: Positive Anemia PSYCHO/SOCIAL: Positive Recreational Drug Use, Depression and Anxiety Family History FAMILY HISTORY: Positive Family Psychiatric Problems, Family Cardiac Disorders and Family Cancer Surgical History SURGICAL: Positive Abdominal Surgery Social History SMOKING STATUS: Never smoker SUBSTANCE USE: methamphetamine ED Exam Narrative Physical exam: As noted in HPI Course Course Course Narrative: chest xray ordered to help determine etiology of shortness of breath. Quality Measures none Orders Category Date Time Status Admit to Inpatient Status Routine Admission 07/11/24 11:17 Active Patient Condition Routine Admission 07/11/24 11:19 Ordered Bedside Blood Glucose Q2HX3 Care 07/11/24 11:16 Active Bedside COVID-19 Antigen Test NOW Care 07/11/24 10:38 Active Bedside Influenza A&B Antigen Test NOW Care 07/11/24 10:38 Active COVID-19 Screening Questionnaire NOW Care 07/11/24 11:[address] Screening NOW Care 07/11/24 09:04 Active Continuous Pulse Oximetry NOW Care 07/11/24 11:19 Active Decision to Admit X1 Care 07/11/24 11:00 Active EKG (ED ONLY) *Do not use* NOW Care 07/11/24 08:16 Completed Ragland [Urinary Catheter] QS Care 07/11/24 11:15 Active Intake and Output QSHIFT Care 07/11/24 11:30 Ordered Intubation NOW Care 07/11/24 11:29 Active NPO NOW Care 07/11/24 11:20 Active Notify provider NEEDED Care 07/11/24 11:19 Active Obtain weight daily Care 07/11/24 11:19 Active Saline [Insert IV] NOW Care 07/11/24 08:19 Active Sequential Compression Device QSHIFT Care 07/11/24 11:19 Active Straight [In and Out Catheter] X1 Care 07/11/24 08:19 Active Diet NPO (NOW) Diet 07/11/24 11:20 Active CA echo doppler complete Routine Exams 07/11/24 11:[address] angio chest Stat Exams 07/11/24 09:04 Ordered EKG (ED Only) Stat Exams 07/11/24 08:16 Ordered US venous doppler LE BI Stat Exams 07/11/24 09:03 Ordered XR chest 1V portable Stat Exams 07/11/24 08:20 Completed ABG [Arterial Blood Gas] Stat Lab 07/11/24 10:01 Completed ABG [Arterial Blood Gas] Stat Lab 07/11/24 11:30 Ordered Alcohol, Blood Medical Stat Lab 07/11/24 09:40 Completed Arterial Blood Gas Stat Lab 07/11/24 10:30 Completed B-Type Natriuretic Peptide Stat Lab 07/11/24 09:40 Completed Beta Hydroxybutyrate Stat Lab 07/11/24 10:59 Results Blood Culture (Lab) Stat Lab 07/11/24 10:59 Received CBC AM DRAW Lab 07/12/24 05:00 Ordered CBC AM DRAW Lab 07/13/24 05:00 Ordered CBC AM DRAW Lab 07/14/24 05:00 Ordered CBC AM DRAW Lab 07/15/24 05:00 Ordered CBC AM DRAW Lab 07/16/24 05:00 Ordered CBC AM DRAW Lab 07/17/24 05:00 Ordered CBC AM DRAW Lab 07/18/24 05:00 Ordered CBC Stat Lab 07/11/24 09:40 Completed CRP [C-Reactive Protein] Stat Lab 07/11/24 10:59 Results Comprehensive Metabolic Panel AM DRAW Lab 07/12/24 05:00 Ordered Comprehensive Metabolic Panel AM DRAW Lab 07/13/24 05:00 Ordered Comprehensive Metabolic Panel AM DRAW Lab 07/14/24 05:00 Ordered Comprehensive Metabolic Panel AM DRAW Lab 07/15/24 05:00 Ordered Comprehensive Metabolic Panel AM DRAW Lab 07/16/24 05:00 Ordered Comprehensive Metabolic Panel AM DRAW Lab 07/17/24 05:00 Ordered Comprehensive Metabolic Panel AM DRAW Lab 07/18/24 05:00 Ordered Comprehensive Metabolic Panel Stat Lab 07/11/24 09:40 Completed D-Dimer Stat Lab 07/11/24 09:40 Completed Drug Screen,Urine Stat Lab 07/11/24 08:16 Ordered ESR [Sed Rate (ESR)] Stat Lab 07/11/24 10:59 Completed Free T4 (Free Thyroxine) Stat Lab 07/11/24 11:24 Ordered Lactate (Lactic Acid) Stat Lab 07/11/24 10:59 Results Lipid Panel AM DRAW Lab 07/12/24 05:00 Ordered Magnesium AM DRAW Lab 07/12/24 05:00 Ordered Magnesium AM DRAW Lab 07/13/24 05:00 Ordered Magnesium AM DRAW Lab 07/14/24 05:00 Ordered Magnesium AM DRAW Lab 07/15/24 05:00 Ordered Magnesium AM DRAW Lab 07/16/24 05:00 Ordered Magnesium AM DRAW Lab 07/17/24 05:00 Ordered Magnesium AM DRAW Lab 07/18/24 05:00 Ordered Magnesium Stat Lab 07/11/24 09:40 Completed Partial Thromboplastin Time AM DRAW Lab 07/12/24 05:00 Ordered Partial Thromboplastin Time Stat Lab 07/11/24 09:40 Completed Phosphorous AM DRAW Lab 07/12/24 05:00 Ordered Phosphorous AM DRAW Lab 07/13/24 05:00 Ordered Phosphorous AM DRAW Lab 07/14/24 05:00 Ordered Phosphorous AM DRAW Lab 07/15/24 05:00 Ordered Phosphorous AM DRAW Lab 07/16/24 05:00 Ordered Phosphorous AM DRAW Lab 07/17/24 05:00 Ordered Phosphorous AM DRAW Lab 07/18/24 05:00 Ordered Procalcitonin Stat Lab 07/11/24 10:59 Results Prothrombin Time with INR AM DRAW Lab 07/12/24 05:00 Ordered Prothrombin Time with INR AM DRAW Lab 07/13/24 05:00 Ordered Prothrombin Time with INR AM DRAW Lab 07/14/24 05:00 Ordered Prothrombin Time with INR Stat Lab 07/11/24 09:40 Completed Sputum Culture and Gram Stain Stat Lab 07/11/24 11:30 Ordered TSH [Thyroid Stimulating Hormone] Stat Lab 07/11/24 09:40 Completed Troponin I Q6H Lab 07/11/24 03:40 Ordered Troponin I Q6H Lab 07/11/24 15:40 Ordered Troponin I Q6H Lab 07/11/24 21:40 Ordered Troponin I Q6H Lab 07/12/24 03:40 Ordered Troponin I Stat Lab 07/11/24 09:40 Completed UA, C/S IF [Urinalysis, C/S if Indicated] Stat Lab 07/11/24 08:22 Ordered Urinalysis Urgent Lab 07/11/24 11:23 Ordered Acetaminophen Tab [Tylenol Tab] Med 07/11/24 11:19 Active 650 mg PO Q6H PRN Calcium Chloride 10% Abboject Med 07/11/24 11:15 Discontinued 10 ml IV X1 ONE Calcium Gluconate 10% Inj Med 07/11/24 11:30 Discontinued 1 gm IV X1 ONE Dextrose 50% Syr [D50w Syringe Abboject] Med 07/11/24 11:15 Active 25 ml IV Q15MIN PRN Dextrose 50% Syr [D50w Syringe Abboject] Med 07/11/24 11:15 Active 50 ml IV Q15MIN PRN Dextrose 50% Syr [D50w Syringe Abboject] Med 07/11/24 11:02 Discontinued 50 ml IV X1 ONE Dextrose 50% Syr [D50w Syringe Abboject] Med 07/11/24 11:14 Discontinued 50 ml IV X1 ONE Furosemide Inj [Lasix Inj] Med 07/11/24 08:20 Discontinued 40 mg IVP X1 ONE Glucagon Inj Med 07/11/24 11:15 Active 1 mg IM Q15MIN PRN Insulin Regular Med 07/11/24 11:15 Discontinued 10 unit IV X1 ONE Morphine Inj Med 07/11/24 08:20 Discontinued 4 mg IVP X1 ONE Nitroglycerin Oint 2% [Nitro-paste Oint 2%] Med 07/11/24 08:20 Discontinued 1 inch TOP X1 ONE Senna [Senokot] Med 07/11/24 11:19 Active 1 tab PO QDAY PRN Sodium Bicarb 8.4% SYR Med 07/11/24 10:36 Discontinued 100 ml IV X1 ONE Sodium Chloride Rt Lacie 10% [NS Rt Lacie 10%] Med 07/11/24 11:30 Discontinued 5 ml INH X1 ONE cefTRIAXone [Rocephin] 1,000 mg Med 07/11/24 10:36 Discontinued Sodium Chloride 0.9% (P) [Ns 0.9% (P)] 50 ml IV X1 Code Status Routine Oth 07/11/24 11:19 Ordered BiPAP / CPAP NOW RT 07/11/24 11:23 Active Oxygen Delivery PRN RT 07/11/24 11:19 Active Sputum Induction PRN RT 07/11/24 11:30 Ordered Volume Ventilator Stat RT 07/11/24 11:29 Active Vital Signs Vital signs: Vital Signs Temperature 98.6 F 07/11/24 07:59 Pulse Rate 73 07/11/24 07:59 Respiratory Rate 19 07/11/24 07:59 Blood Pressure 123/82 07/11/24 07:59 Pulse Oximetry (%) 97 07/11/24 07:59 Oxygen Delivery Method Room Air 07/11/24 07:59 Pulse ox is 97% on room air which is adequate. Extremity Problem MDM Narrative MDM Narrative:: Steffi Parker am scribing for and in the presence of Dr. Swartz. Patient data External records reviewed:: [facility] previous records (I reviewed ED visit on 07/07/2024) and EMS form Clinical information provided by:: patient and EMS Social determinants that could affect healthcare access:: substance use (Methamphetamine use, homelessness ) Patient has the following chronic illnesses:: homelessness, HFrEF 20-25% 05/2024, cardiomyopathy, hypertension, hyperlipidemia, chronic left foot osteomyelitis, recurrent admissions for CHF exacerbation (most recent admission 06/19/24-06/22/24 where patient left against medical advice) How is presenting disease/condition affected by chronic disease/condition?: exacerbated by Evaluation data The following diagnostics were reviewed and interpreted by me:: lab results, radiology exam(s) and EKG tracing(s) (My interpretation of the EKG is: Sinus rhythm (84 bpm) with nonspecific ST-T changes. Kapil Swartz MD) Lab and/or radiology exams considered but not ordered:: None Interpretation Summary: My interpretation of the chest x-ray is mild heart failure, suspicious for superimposed pneumonia at the lung bases. Medications / Prescriptions Medications or Prescriptions considered but not ordered:: None Medication administrations:: Medication Administration History Acetaminophen (Acetaminophen 325 Mg Tablet) 650 mg PO Q6H PRN PRN Reason: Fever >101.5 Stop: 08/10/24 11:18 Dextrose (Dextrose 50%-Water Inj 50 Ml Syringe) 25 ml IV Q15MIN PRN PRN Reason: BG 50-70 responsive npo pt Stop: 08/10/24 11:14 Dextrose (Dextrose 50%-Water Inj 50 Ml Syringe) 50 ml IV Q15MIN PRN PRN Reason: BG <50 OR BG <70 & pt unresponsive Stop: 08/10/24 11:14 Glucagon (Glucagon Inj 1 Mg Vial) 1 mg IM Q15MIN PRN PRN Reason: BG <70, and no IV access Sennosides (Senna Tablet) 1 tab PO QDAY PRN; Protocol PRN Reason: constipation Stop: 08/10/24 11:18 Discontinued Medications Calcium Chloride (Calcium Chloride 10% Inj 10 Ml Syrg) 10 ml IV X1 ONE Stop: 07/11/24 11:16 Calcium Gluconate (Calcium Gluconate 10% Inj 1 Gm/10 Ml Vial) 1 gm IV X1 ONE Stop: 07/11/24 11:31 Dextrose (Dextrose 50%-Water Inj 50 Ml Syringe) 50 ml IV X1 ONE Stop: 07/11/24 11:03 Last Admin: 07/11/24 11:09 Dose: 50 ml Documented By: THIERRY Dextrose (Dextrose 50%-Water Inj 50 Ml Syringe) 50 ml IV X1 ONE Stop: 07/11/24 11:15 Last Admin: 07/11/24 11:31 Dose: 50 ml Documented By: THIERRY Furosemide (Furosemide Inj 10 Mg/Ml 4ml Vial) 40 mg IVP X1 ONE Stop: 07/11/24 08:21 Last Admin: 07/11/24 09:58 Dose: 40 mg Documented By: THIERRY Ceftriaxone Sodium 1,000 mg/ (Sodium Chloride) 50 mls @ 100 mls/hr IV X1 ONE Stop: 07/11/24 11:05 Last Admin: 07/11/24 10:59 Dose: 100 mls/hr Documented By: Infusion: 07/11/24 10:59 Dose: Infused Documented By: Admin: 07/11/24 10:51 Dose: 100 mls/hr Documented By: THIERRY Insulin Human Regular (Insulin Hum Regular 1 Unit/0.01 Ml (Per Unit)) 10 unit IV X1 ONE Stop: 07/11/24 11:16 Morphine Sulfate (Morphine Sulf Inj 10 Mg/Ml Vial) 4 mg IVP X1 ONE Stop: 07/11/24 08:21 Last Admin: 07/11/24 10:00 Dose: 4 mg Documented By: Nitroglycerin (Nitroglycerin Oint 2% 1 Inch Packet) 1 inch TOP X1 ONE Stop: 07/11/24 08:21 Last Admin: 07/11/24 10:02 Dose: 1 inch Documented By: Sodium Bicarbonate (Sodium Bicarb Inj 8.4% Syr 50 Ml Syringe) 100 ml IV X1 ONE Stop: 07/11/24 10:37 Last Admin: 07/11/24 10:54 Dose: 100 ml Documented By: Sodium Chloride (Sodium Chloride Rt 10% 15 Ml Nebu) 5 ml INH X1 ONE Stop: 07/11/24 11:31 Patient given Lasix, Morphine, Nitro Consultations Consultation(s) initiated? (list below): Yes Consultation #1 (Physician, Specialty, Details): I spoke with unattended ground sensor specialist Dr. Degroot as noted above. Time: 11:00 Diagnosis Extremity Problem Differential Diagnosis: cellulitis, lower extremity edema, deep vein thrombosis of lower extremity and other (Fluid overload, CHF exacerbation ) Most likely diagnosis given after review of the tests above:: Acute respiratory failure with hypoxia Sepsis Elevated D-Dimer Elevated troponin Hyperkalemia GEOVANY Hypoglycemia Elevated TSH Elevated BNP Admission Indicated Admission indicated?: indicated Explain why admission is indicated or not indicated:: Acute respiratory failure Admission Request Was there a request for admission?: Yes Admission Attestation Admission request attestation: Discussed case with our ICU service regarding admission. Discussed patients ED course, exam findings, labs, and radiology results. The Hospitalist [agrees,declines] to accept the patient for admission. Disposition Plan Disposition Plan: Admit Critical Care Time Critical Care Time Critical Care Time: Yes Total Critical Care Time (min.): 46 Attestation: Due to a high probability of clinically significant, life threatening deterioration, the patient required my highest level of preparedness to intervene emergently and I personally spent this critical care time directly and personally managing the patient. This critical care time included obtaining a history; examining the patient; ordering and review of studies; arranging urgent treatment with development of a management plan; evaluation of patient's response to treatment; frequent reassessment; and discussions with family and other providers. It was exclusive of separately billable procedures and treating other patients and teaching time. Kapil Swartz MD Discharge Plan Plan Patient Disposition: Admit Acute Care w/in Hospital Prescriptions/Referrals Prescriptions/Med Rec: No Action Eliquis 2.5 mg Tablet 5 mg PO BID Qty: 60 3RF atorvastatin 40 mg tablet 40 mg PO HS 30 Days Qty: 30 3RF bumetanide 1 mg tablet 1 mg PO BID 30 Days Qty: 60 3RF ceftriaxone 2 gram recon soln 2 g IV QDAY Qty: 40 0RF doxycycline hyclate 100 mg capsule 100 mg PO BID Qty: 80 0RF aspirin [Ecotrin Low Strength] 81 mg Tablet,Delayed Release (Dr/Ec) 81 mg PO QDAY 30 Days Qty: 30 3RF metoprolol succinate 25 mg Tablet Extended Release 24 Hr 25 mg PO QDAY 30 Days Qty: 30 3RF sacubitril-valsartan [Entresto] 24-26 mg Tablet 1 tab PO BID Qty: 30 3RF Referrals: No Primary/Family,Physician [Primary Care Provider] - In 1 week Problem List Clinical Impression: Acute respiratory failure with hypoxia, Sepsis, Elevated troponin, GEOVANY (acute kidney injury), Elevated d-dimer, Hyperkalemia, Hypoglycemia, Elevated TSH, Elevated brain natriuretic peptide (BNP) level, LFT elevation Patient/Caregiver Discharge Instructions Print Language: Czech Stand Alone Forms: Vera Award Info., Patient Portal Info Letter
--- NOTE | 2024-07-11 08:20 | XR_ITS ---
Examination: AP chest single view Technique portable AP sitting portable chest single view Exam date and time: July 11, 2024 0831 hours Comparison July 06, 2024 INDICATIONS: Shortness of breath today FINDINGS: Mild heart failure Moderate enlargement cardiac contour Prominent vascular congestion including central vascular engorgement Consider superimposed pneumonia at the lung bases Prominent osteopenia IMPRESSION: Mild heart failure Suspicious for superimposed pneumonia at the lung bases
--- NOTE | 2024-07-11 09:03 | XR_ITS ---
Examination: Venous duplex lower extremity sonogram, bilateral. Date and time of exam: July 11, 2024 at 1237 hours INDICATIONS: Bilateral leg swelling and pain this week Technique: Multiple sonographic images of the deep venous system have been obtained. B-mode/2-D grayscale imaging of vascular structures and Doppler spectral analysis (waveforms) and color performed Both legs are examined. Findings: Deep venous systems do not demonstrate abnormal echogenicity. All visualized deep veins exhibit compressibility. All visualized deep veins exhibit augmentation. Impression: Negative for deep vein thrombosis
--- NOTE | 2024-07-11 09:09 | PC.NURSE ---
Patient refusing to sit back and allow RN to place IV to give medications.
[2024-07-11] MEDS: FUROSEMIDE INJ 10 MG/ML 4ML VIAL 40 MG IVP (09:58)
[2024-07-11] MEDS: MORPHINE SULF INJ 10 MG/ML VIAL 4 MG IVP (10:00)
[2024-07-11] MEDS: NITROGLYCERIN OINT 2% 1 INCH PACKET TOP (10:02)
[2024-07-11 10:10] LABS: Basophils % (Auto) 0 % (0-2.5); Eosinophils % (Auto) 0 % (0-10); Hematocrit 38.5 % (41.0-53.0); Immature Granulocytes % (Auto) 1 % (0-0); Immature Granulocytes Auto 0.07 Thou/mm3 (0.00-0.00); Lymphocytes # (Auto) 0.3 Thou/mm3 (1.0-4.8); Lymphocytes % (Auto) 3 % (10-50); Mean Corpuscular HGB Conc 31.2 g/dl (31.0-37.0); Mean Corpuscular Hemoglobin 27.5 pg (25.0-35.0); Mean Corpuscular Volume 88 fL (80-100); Monocytes # (Auto) 1.3 Thou/mm3 (0.0-0.8); Monocytes % (Auto) 12 % (0-12); Neutrophils # (Auto) 9.6 Thou/mm3 (1.8-7.7); Neutrophils % (Auto) 85 % (37-80); Nucleated Red Blood Cell # 0.11 Thou/mm3 (0.00-0.00); Nucleated Red Blood Cell % 1 /100 WBC (0); Platelet Count 91 Thou/mm3 (140-440); RDW Standard Deviation 58.7 fL (35.1-43.9); Red Blood Count 4.37 Miln/mm3 (4.50-5.90); White Blood Count 11.4 Thou/mm3 (3.8-10.6)
[2024-07-11 10:13] LABS: Base Excess -17 (-3-3); HCO3 10 mEq/L (20-26); Inspired O2, VO2 Liters 5 L/min; O2 Saturation 72 % (91-98); PCO2 29 mmHg (32.0-48.0)
[2024-07-11 10:16] LABS: pH, Arterial 7.15 (7.35-7.45)
[2024-07-11 10:17] LABS: Allen Test Performed/OK; PO2 50 mmHg (83-108); Puncture Site Right Radial
[2024-07-11 10:23] LABS: D-Dimer 3040 ng/mL (<600)
[2024-07-11 10:31] LABS: INR 1.9 (0.9-1.3); Partial Thromboplastin Time 29.8 Seconds (22.0-36.0); Prothrombin Time 20.3 Seconds (9.0-12.2)
[2024-07-11 10:41] LABS: Alanine Aminotransferase 142 U/L (10-49); Albumin, Serum 4.6 gm/dL (3.4-4.8); Albumin/Globulin Ratio 1.3 (1.2-2.2); Alcohol, Blood Medical < 3.0 mg/dL (0-10.0); Alkaline Phosphatase 137 U/L (46-116); Anion Gap 20 (7-16); Aspartate Amino Transferase 318 U/L (0-34); BUN/Creatinine Ratio 20 Ratio (12-20); Bilirubin,Total 2.7 mg/dL (0.3-1.2); Blood Urea Nitrogen 59 mg/dL (9-23); Calcium 8.6 mg/dL (8.3-10.6); Calcium (Corrected) 8.6 mg/dL (8.5-10.1); Chloride 96 mMol/L (98-107); Creatinine (Component) 2.9 mg/dL (0.6-1.3); Estimated Creatinine Clearance 27.8 mL/min (>60); Globulin 3.6 gm/dL (2.3-3.5); Glucose 52 mg/dL (74-106); Magnesium 2.7 mg/dL (1.6-2.6); Osmolality,Calculated 268 (275-295); Sodium 127 mMol/L (136-145); Thyroid Stimulating Hormone 16.68 uIU/mL (0.55-4.78); Total Protein 8.2 gm/dL (5.7-8.2); eGFR 24 See Note
[2024-07-11 10:42] LABS: B-Type Natriuretic Peptide 2325 pg/mL (0-100)
[2024-07-11 10:43] LABS: Potassium 6.9 mMol/L (3.4-5.1)
[2024-07-11 10:44] LABS: Carbon Dioxide 11.4 mMol/L (20.0-31.0); Troponin I 4.209 ng/mL (0.0-0.045)
[2024-07-11 10:44] LABS: Base Excess -17 (-3-3); HCO3 11 mEq/L (20-26); Inspired O2, VO2 Liters 2 L/min; O2 Saturation 68 % (91-98); PCO2 30 mmHg (32.0-48.0)
[2024-07-11 10:48] LABS: Allen Test Performed/OK; PO2 47 mmHg (83-108); Puncture Site Right Brachial; pH, Arterial 7.15 (7.35-7.45)
[2024-07-11] MEDS: cefTRIAXone 1,000 MG in SODIUM CHLORIDE 0.9% (P) 50 ML 100 MG IV ×2 (10:51→10:59)
[2024-07-11] MEDS: Sodium Bicarb Inj 8.4% SYR 50 ML SYRINGE 100 ML IV (10:54)
[2024-07-11] MEDS: DEXTROSE 50%-WATER INJ 50 ML SYRINGE IV ×3 (11:09→13:29)
[2024-07-11 11:15] LABS: Beta Hydroxybutyrate 0.3 mmol/L (<0.6)
[2024-07-11 11:19] LABS: Sed Rate (ESR) 34 mm/hr (0-20)
[2024-07-11 11:23] LABS: Lactate (Lactic Acid) 8.7 mMol/L (0.4-2.0)
--- NOTE | 2024-07-11 11:24 | ECHO_ITS ---
Transthoracic Echo Report Ht (in): 68 Wt (lb): 190 Exam Location: Echo Lab Status: Emergency Coffee Bar Attendant: Yessica Tapia Indications: Procedure Performed: BP: 139 / 98 HR: Technical Quality: Technically difficult study MEASUREMENTS (Male / Female) Normal Values 2D ECHO LV Diastolic Diameter PLAX 5.8 cm 4.2 - 5.9 / 3.9 - 5.3 cm LV Systolic Diameter PLAX 5.1 cm IVS Diastolic Thickness 0.9 cm 0.6 - 1.0 / 0.6 - 0.9 cm LVPW Diastolic Thickness 1.3 cm 0.6 - 1.0 / 0.6 - 0.9 cm LV Relative Wall Thickness 0.4 LVOT Diameter 2.3 cm LV Ejection Fraction MOD 4C 34.0 % LV Ejection Fraction 4C AL 33.9 % LA Volume Index 60.1 cm?/m? 16 - 28 cm?/m? M-MODE Aortic Root Diameter MM 2.9 cm LA Systolic Diameter MM 5.6 cm LA Ao Ratio MM 1.9 AV Cusp Separation MM 2.3 cm DOPPLER AV Peak Velocity 103.0 cm/s AV Peak Gradient 4.2 mmHg AV Mean Gradient 2.0 mmHg AV Velocity Time Integral 15.1 cm AI Peak Velocity 130.0 cm/s AI Peak Gradient 6.8 mmHg AI Pressure Half Time 03604.0 ms LVOT Peak Velocity 72.4 cm/s LVOT Peak Gradient 2.1 mmHg LVOT Velocity Time Integral 12.0 cm AV Area Cont Eq vti 3.3 cm? AV Area Cont Eq pk 2.9 cm? MV Area PHT 4.9 cm? MR Peak Velocity 349.0 cm/s MR Peak Gradient 48.7 mmHg Mitral E Point Velocity 103.0 cm/s Mitral A Point Velocity 30.1 cm/s Mitral E to A Ratio 3.4 LV E' Lateral Velocity 8.4 cm/s Mitral E to LV E' Lateral Ratio 12.2 LV E' Septal Velocity 3.8 cm/s Mitral E to LV E' Septal Ratio 26.9 TR Peak Velocity 250.5 cm/s TR Peak Gradient 25.1 mmHg PV Peak Velocity 89.6 cm/s PV Peak Gradient 3.2 mmHg FINDINGS Left Ventricle Dilated LV. Sever systolic dysfunciton. Severe global hypokinesis LVEF estimated at 20-25%. Right Ventricle The right ventricle is mildly dilated. Mild systolic dysfunction. The estimated right ventricular systolic pressure, 39 mmHg. RAP 15. Left Atrium The left atrium is severely dilated. Right Atrium The right atrium is severely dilated. Atrial Septum The interatrial septum appears normal with no evidence of a shunt. Aorta The aorta is normal by two-dimensional, color flow and Doppler interrogation. Mitral Valve The mitral valve is normal by two-dimensional, color flow and Doppler interrogation. There is mild mitral valve regurgitation, stenosis or prolapse. Aortic Valve The aortic valve is trileaflet and normal by two-dimensional, color flow and Doppler interrogation. There is no significant aortic valve regurgitation. Tricuspid Valve The tricuspid valve is normal by two-dimensional, color flow and Doppler interrogation. There is mild tricuspid valve regurgitation. Pulmonic Valve The pulmonic valve is not well visualized. There is no significant pulmonic valve regurgitation. Vessels Dilated inferior vena cava. Pericardium The pericardium is normal by two-dimensional imaging. There is no significant pericardial effusion. CONCLUSIONS Indication: CHF exacerbation. Dilated cardiomyopathy. Severely dilated LV. Severe LV systolic dysfunciton with severe global hypokinesis. LVEF estimated at 20- 25%. RV is moderate to severely dilated. Moderate systolic dysfunction. Estimated RVSP is 45 mmHg. RAP 15. Moderate MR and TR. Mild AI and PI. Grade 3 DD. Severe biatrial dilatation. IVC dilated. Ismael Diaz (Electronically Signed) Final Date: 15 July 2024 06:41
[2024-07-11 11:38] LABS: C-Reactive Protein 4.5 mg/dL (0.0-0.9); Procalcitonin 3.63 ng/ml (0.0-0.49)
[2024-07-11] MEDS: CALCIUM GLUCONATE 10% INJ 1 GM/10 ML VIAL IV (11:38)
[2024-07-11] MEDS: INSULIN HUM REGULAR 1 UNIT/0.01 ML (PER UNIT) 10 UNIT IV (11:43)
[2024-07-11 11:53] LABS: Collection Type, Urine Catheter
--- NOTE | 2024-07-11 11:57 | PD.INTPROG ---
Documentation for date of: 07/11/24 Subjective Subjective Interval history: This is a 64-year-old male who presents to the ER with lower extremity pain. The patient presents frequently to the hospital for multiple complaints. Today he was in triage with b/l LE pain and then developed worsening SOB and brought to the back. Pt himself is a poor historian and unable to elicit much detail. Apparently he was seen in the ER 5 days ago for retrosternal chest pain, worsening lower extremity edema and shortness of breath. At that point in time labs were taken and he was found to be near baseline. He was treated and returned home. Today labs were checked in the ER and on arrival he was noted to have potassium of 6.9 and anion gap of 20 a creatinine of 2.9 as well as a troponin of 4.2. His LFTs were elevated and his BNP appears to be chronically elevated in the 2000 range. An ABG was obtained and he was noted to be acidotic with a pH 7.15. There was concern for his shortness of breath and the ICU was consulted for evaluation of acute hypoxic respiratory failure and possible need for intubation. The patient was evaluated and seen in the ER and was felt to be appropriate for BiPAP at that time. In the ED he was given 2 A of bicarb for acidosis. The ICU team also gave an amp of calcium additional amps of D50 and insulin for his hyperkalemia. Critical Care Note Critical care time (min.): 90 Exam Vital Signs Temp Pulse Resp BP Pulse Ox O2 Del Method O2 Flow Rate 98.6 F 89 21 H 136/95 H 94 L Oxy Mask 15 07/11/24 07:59 07/11/24 11:25 07/11/24 11:25 07/11/24 11:01 07/11/24 11:25 07/11/24 11:07/11/24 11:01 FiO2 50 07/11/24 11:25 Narrative Exam Gen- ill appearing, lethargic but arousable, nl body habitus, disheveled and unkempt in appearence HEENT- NC/AT, mucosa hydrated, frothy sputum at the mouth, slcera muddy, pupils reactive Chest- crackles b/l post yu to mid back, no active wheezing heard, HRRR, tachypneic but no increase in WOB with use of accessory muscles at time of exam Abd- s/nt/bs+ Ext- edema 2+ pitting b/l LE to level of the knee, feet are cold to touch and dusky in appearence, areas of white callouses on b/l feet, nodules on several DIP joints in hands, moves all 4 Physical Exam Completion Physical Exam Complete?: Yes 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 07/12/24 04:42 07/12/24 04:42 Labs: Laboratory Results - last 24 hr 07/11/24 07/11/24 07/11/24 09:40 10:01 10:30 WBC 11.4 H D RBC 4.37 L Hgb 12.0 L Hct 38.5 L MCV 88 MCH 27.5 MCHC 31.2 RDW Std Deviation 58.7 H Plt Count 91 L D Neut % (Auto) 85 H Lymph % (Auto) 3 L Mora % (Auto) 12 Eos % (Auto) 0 Baso % (Auto) 0 Neut # (Auto) 9.6 H Lymph # (Auto) 0.3 L Mora # (Auto) 1.3 H Eos # (Auto) 0.0 Baso # (Auto) 0.0 Immature Gran # (Auto) 0.07 H Absolute Nucleated RBC 0.11 H Immature Gran % 1 H Nucleated RBC % 1 H ESR PT 20.3 H D INR 1.9 H APTT 29.8 D-Dimer 3040 H Puncture Site Right Radial Right Brachial ABG pH 7.15 L* 7.15 L* ABG pCO2 29 L 30 L ABG pO2 50 L* 47 L* ABG HCO3 10 L 11 L ABG O2 Saturation 72 L 68 L ABG Base Excess -17 L -17 L Oxygen Liter Flow 5 2 Sodium 127 L Potassium 6.9 H* Chloride 96 L Carbon Dioxide 11.4 L* Anion Gap 20 H BUN 59 H Creatinine 2.9 H D Estim Creat Clear Calc 27.8 L eGFR 24 L BUN/Creatinine Ratio 20 Glucose 52 L Calculated Osmolality 268 L Lactic Acid Calcium 8.6 Corrected Calcium 8.6 Magnesium 2.7 H Total Bilirubin 2.7 H AST 318 H ALT 142 H Alkaline Phosphatase 137 H Troponin I 4.209 H* C-Reactive Prot, Quant B-Natriuretic Peptide 2325 H* Total Protein 8.2 Albumin 4.6 Globulin 3.6 H Albumin/Globulin Ratio 1.3 Beta-Hydroxybutyrate/Acetoacetate Procalcitonin TSH 16.68 H Ethyl Alcohol < 3.0 07/11/24 10:59 WBC RBC Hgb Hct MCV MCH MCHC RDW Std Deviation Plt Count Neut % (Auto) Lymph % (Auto) Mora % (Auto) Eos % (Auto) Baso % (Auto) Neut # (Auto) Lymph # (Auto) Mora # (Auto) Eos # (Auto) Baso # (Auto) Immature Gran # (Auto) Absolute Nucleated RBC Immature Gran % Nucleated RBC % ESR 34 H PT INR APTT D-Dimer Puncture Site ABG pH ABG pCO2 ABG pO2 ABG HCO3 ABG O2 Saturation ABG Base Excess Oxygen Liter Flow Sodium Potassium Chloride Carbon Dioxide Anion Gap BUN Creatinine Estim Creat Clear Calc eGFR BUN/Creatinine Ratio Glucose Calculated Osmolality Lactic Acid 8.7 H* Calcium Corrected Calcium Magnesium Total Bilirubin AST ALT Alkaline Phosphatase Troponin I C-Reactive Prot, Quant 4.5 H B-Natriuretic Peptide Total Protein Albumin Globulin Albumin/Globulin Ratio Beta-Hydroxybutyrate/Acetoacetate 0.3 Procalcitonin 3.63 H TSH Ethyl Alcohol Assessment & Plan Additional Assessment Additional Assessment: In summary this is a 64yo M admitted to the ICU with acute hypoxic resp failure and severe acidosis and evidence of cardiogenic shock 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 EKG does not show any ST elevations or new left bundle branch block, will continue to follow patient troponin, EKG and obtain an echocardiogram. Will start aspirin and heparin, ? Type 1 v type 2, cards consult. Bedside echo was done and he appears to have an EF of approximately 10%. His contractility appears to be generally decreased with no clear wall motion abnormality seen at this point in time. There was no significant pericardial effusion he does appear to have dilation of all 4 chambers. There is a hyperintense lesion that was seen in the right atrium of unclear etiology or significance. No clear LV thrombus was noted. A subcostal, parasternal long, parasternal short and apical four-chamber view were obtained. CHF/cardiogenic shock-patient's BNP is elevated at 2300 appears to be similar to what his level was 5 days ago on arrival. He has bilateral lower extremity pitting edema, chest x-ray shows increased vascular markings and patient had frothy white sputum on evaluation. Will require additional diuresis and follow-up with an echocardiogram. Patient's last echo in the system shows an EF of 20 to 25% with severe global hypokinesia and dilated cardiomyopathy. His lactic acid was 8.7 and his physical exam showed dusky feet which were also ice cold to touch. He does have evidence of insufficient tissue perfusion. He has been started on Bumex, he is able to maintain his pressures at this point in time. Resp Acute hypoxic /hypercapnic respiratory failure-patient was started on BiPAP, the positive pressure should assist with pulmonary edema. His ABG indicates that he also has some degree of respiratory acidosis indicating an inability to keep up with his metabolic demands. Will follow-up with ABG in an hour Pulmonary edema-currently on diuresis continue to follow Renal Acidosis- mixed with primary AGMA, chavez formula indicates a concomitant respiratory acidosis and pts delta delta gap reveals a nongap component as well Hyponatremia-patient currently has hypervolemic hyponatremia and appears to have total body volume overload though intravascular status is unclear Hyperkalemia-patient's potassium is 6.9 on arrival. He was given bicarb, calcium, D50 as well as insulin were ordered. He has been given Lasix and will follow-up on repeat potassium levels in 2 hours. Acute kidney injury-current creatinine at 2.9, will place a Ragland for strict I's and O's, avoid nephrotoxins as able unclear prerenal versus intrarenal may require a renal ultrasound further evaluation GI Transaminitis-patient had labs drawn approximately 5 days ago which revealed an AST of 36 at that time today is 318. Differentials include viral, drug toxicity, ischemic or congestive. Obtain right upper quadrant ultrasound for further eval, likely due to his underlying heart failure Endo Hypoglycemia-patient received 2 A of D50 in the ER Hypothyroid-patient's TSH is elevated with no apparent history of hypothyroidism. Free T4 is pending Heme Leukocytosis- reactive v related to underlying chronic osteo Anemia- near baseline Thrombocytopenia- ? related to liver dysfunction v sepsis Coagulopathy- ? 2/2 liver dyfunction v meds History of LV thrombus for which the patient was on Eliquis unclear if patient is taking medications at home DVT proh- on heparin ID History of hepatitis C History of osteomyelitis-patient had been discharged on doxycycline for total of 6 weeks previously in the beginning of June it is unclear if patient was compliant with this regimen at home or not case d/w ICU team Labs, imaging and records reviewed Approximately 90 critical care minutes required for evaluation, exam, review, intervention, discussion formulation of plan of care for this critically ill patient at high risk for further and ongoing decompensation I am informed today that an echocardiogram is not available at this facility at this particular moment in time. The patient may benefit from transfer to another facility for ongoing additional care. Provider Notation Provider Notation: Although this document has been carefully reviewed, there may still be some phonetic and other typographical errors. These errors are purely grammatical due to imperfections in the software program and should not be construed in any way to compromise the substance of the patient's medical care during this visit. Thank you for the opportunity and privilege in assisting you with this patient's care and management.
--- NOTE | 2024-07-11 12:23 | ESHP_ITS ---
<Statement entered by Jose Desir DO - 07/11/24 21:03> Senior attestation: Patient was examined and case was reviewed with team including attending physician. Note reviewed, I agree with most of its contents and agree with the patient's care. In summary, patient is a 64 year old male with history of HFrEF (EF 20 -25%, May 2024), dilated cardiomyopathy, hypertension, hyperlipidemia, chronic left foot osteomyelitis, hepatitis C, cholelithiasis, substance use (methamphetamine) and homelessness who presented to the ED with concners of shortness of breath and bilateral lower extremity pain, was noted to be tripoding position by nursing team, found to have pH 7.15, PCO2 29, HCO3 11, troponin 4.209, K 6.9, creatinine 2.9, BUN 59, lactic acid 8.7, T bilirubin 2.7 and AST 318. While in the ED, patient was placed on BiPAP for hypoxia. On physical exam, patient was noted to have dusky and cold to touch bilateral lower extremities with 2+ edema bilaterally. Given these exam findings in the setting of elevated lactic acid and troponin and in conjunction with borderline hypoxia on BiPAP, decision was made admit patient to ICU for further management and possible need for intubation. Given elevated troponin findings (uptrending to 6.733 and 7.412), patient was given aspirin 325mg x1 and started on IV heparin drip, cardiology was consulted. Bedside echo was completed by ICU team, concerning findings for global hypokinesis and possible thrombus. Echocardiogram was ordered, however will not be able to completed at [facility] at this time due to staffing issues (may not be possible until 07/14). Given patient's cardiovascular history of cardiomyopathy and reduced EF and in the current setting of possible cardiogenic shock (reduced perfusion on lower extremities with elevated lactic acid) with uptrending troponin levels, delaying echo may delay patient's care - our team will pursue transfer for echocardiogram and any further cardiology interventions if warranted. Meanwhile, will continue diuresis with IV bumex 2mg BID with strict input/output monitoring, daily weights, and fluid restriction 1500 cc. Will continue IV heparin and trend troponin levels, [facility] cardiology team consulted. Will continue BiPAP for tonight with repeat ABGs, continue broad spectrum IV abx with vancomycin/zosyn and tamiflu for influenza B. Patient's hyperkalemia was treated with hyperkalemia cocktail of IV insulin with calcium gluconate and amps of D50. Will continue to trend lactic acid levels until normalized. Jose Desir, DO PGY-3 Documentation for date of: 07/11/24 HPI History of Present Illness Chief complaint: Shortness of breath, bilateral lower extremity pain History of present illness: Mr. Sheikh is a 64-year-old male with past medical history of HFrEF EF 20 to 25%, May 2024, dilated cardiomyopathy, hypertension, hyperlipidemia, chronic left foot osteomyelitis, hepatitis C, cholelithiasis, methamphetamine use and homelessness who was BIBA to [facility] emergency department on 07/11 with chief complaint of shortness of breath and bilateral lower extremity pain. Patient is alert and oriented x 2, significantly short of breath unable to provide much details about his illness, complains of full body pain. Patient was seen in the ED about 5 days ago for retrosternal chest pain, worsening lower extremity edema and shortness of breath. Per patient's nurse, patient was extensively short of breath ever since he was brought in from the triage area, tripoding was noted by nurse. In the ED patient's ABG was noted to have pH of 7.15, pCO2 29 and pO2 50, patient was noted to be hypoxic on pulse ox, otherwise labs were significant for potassium 6.9, anion gap of 20 and also did have elevated troponin of 4.2. Patient was placed on BiPAP and decision was made to admit patient to ICU. ED Course: ED Vitals: On presentation in ED BP 123/82, P73, RR 19, temp 98.6, O2 sat 97 on room air ED Labs:ED labs significant for WBC 11.4, hemoglobin 12, hematocrit 38.5, platelet 91 coag panel shows PT 20.3, INR 1.9, APTT 29.8, D-dimer 3040 ABG shows pH 7.15, pCO2 29, pO2 50, bicarb 10 and repeat ABG shows pH 7.15, pCO2 30, pO2 47, bicarb 11 chemistry significant for sodium 127, potassium 6.9, chloride 96, bicarb 11.4, anion gap 20, BUN 59, creatinine 2.9, GFR 24, glucose 52, osmolality 268, magnesium 2.7, bilirubin 2.7, AST 318, ALT 142, alk phos 137, troponin 4.209, CRP 4.5, BNP 2325 globulin 3.6, TSH of 16.68, free T41.48, Pro- Eusebio 3.63, lactate 8.7 ED Imaging:Bilateral venous Doppler study negative for DVT, chest x-ray suspicious for superimposed pneumonia at lung base, mild heart failure ED Treatment:Patient was given Lasix 40 x 1, morphine 4 mg x 1, nitroglycerin topical patch ceftriaxone, 2 A of bicarb, 1 amp of dextrose in ED. Review of Systems Review of Systems ROS Unobtainable: unobtainable due to medical condition Past Medical History Past Medical History Comments PMH COMMENT: PMH COMMENT: PMH: HFrEF EF 20 to 25%, May 2024, dilated cardiomyopathy, hypertension, hyperlipidemia, chronic left foot osteomyelitis, hepatitis C, cholelithiasis, methamphetamine use and homelessness PSHx: Hernia surgery. Allergies:NKDFA Social history: -Alcohol Use: Reports daily alcohol use of sixpack beer, last drink yesterday -Illicit Drug Use:Heroin use for 30 years, quit 2002, Methamphetamine use daily. -Homeless Exam Vital Signs Temp Pulse Resp BP Pulse Ox O2 Del Method O2 Flow Rate 98.6 F 89 21 H 136/95 H 94 L Oxy Mask 15 07/11/24 07:59 07/11/24 11:25 07/11/24 11:25 07/11/24 11:01 07/11/24 11:25 07/11/24 11:01 07/11/24 11:01 FiO2 50 07/11/24 11:25 Narrative Exam Physical Exam General: 64-year-old male, alert and oriented x 2, short of breath, on BiPAP HEENT: Normocephalic, atraumatic, mucous membranes moist, 2+ bilaterally reactive Heart: Regular rate and rhythm, no murmurs. Nitroglycerin patch noted. Lungs: Crackles heard bilaterally. Abdomen: Soft, non-distended, non-tender, positive bowel sounds. Neurologic: GCS 14, response to pain Extremities: 2+ bilateral lower extremity edema, pitting edema, callus bilaterally feet, feet cool and dusky. Results: Labs 07/11/24 14:29 07/11/24 14:29 Labs: Short CBC 07/11/24 Range/Units 09:40 WBC 11.4 H D (3.8-10.6) Thou/mm3 Hgb 12.0 L (13.5-16.0) g/dL Hct 38.5 L (41.0-53.0) % Plt Count 91 L D (140-440) Thou/mm3 BMP 07/11/24 09:40 Sodium 127 L Potassium 6.9 H* Chloride 96 L Carbon Dioxide 11.4 L* BUN 59 H Creatinine 2.9 H D Glucose 52 L Calcium 8.6 Cardiac Enzymes 07/11/24 Range/Units 09:40 Troponin I 4.209 H* (0.0-0.045) ng/mL Liver Function 07/11/24 Range/Units 09:40 Total Bilirubin 2.7 H (0.3-1.2) mg/dL AST 318 H (0-34) U/L ALT 142 H (10-49) U/L Alkaline Phosphatase 137 H (46-116) U/L Albumin 4.6 (3.4-4.8) gm/dL ABG Interpretation ABG results: 07/11/24 07/11/24 10:01 10:30 ABG pH 7.15 L* 7.15 L* ABG pCO2 29 L 30 L ABG pO2 50 L* 47 L* ABG HCO3 10 L 11 L ABG O2 Saturation 72 L 68 L ABG Base Excess -17 L -17 L Quality Measures Quality Measures none Medications Home Medications and Allergies Allergies Allergy/AdvReac Type Severity Reaction Status Date / Time No Known Allergies Allergy Verified 06/11/24 12:46 Visit Medications Acetaminophen (Acetaminophen 325 Mg Tablet) 650 mg PO Q6H PRN PRN Reason: Fever >101.5 Stop: 08/10/24 11:18 Dextrose (Dextrose 50%-Water Inj 50 Ml Syringe) 25 ml IV Q15MIN PRN PRN Reason: BG 50-70 responsive npo pt Stop: 08/10/24 11:14 Dextrose (Dextrose 50%-Water Inj 50 Ml Syringe) 50 ml IV Q15MIN PRN PRN Reason: BG <50 OR BG <70 & pt unresponsive Stop: 08/10/24 11:14 Glucagon (Glucagon Inj 1 Mg Vial) 1 mg IM Q15MIN PRN PRN Reason: BG <70, and no IV access Sennosides (Senna Tablet) 1 tab PO QDAY PRN; Protocol PRN Reason: constipation Stop: 08/10/24 11:18 Discontinued Medications Calcium Chloride (Calcium Chloride 10% Inj 10 Ml Syrg) 10 ml IV X1 ONE Stop: 07/11/24 11:16 Last Admin: 07/11/24 11:46 Dose: Not Given Calcium Gluconate (Calcium Gluconate 10% Inj 1 Gm/10 Ml Vial) 1 gm IV X1 ONE Stop: 07/11/24 11:31 Last Admin: 07/11/24 11:38 Dose: 1 gm Dextrose (Dextrose 50%-Water Inj 50 Ml Syringe) 50 ml IV X1 ONE Stop: 07/11/24 11:03 Last Admin: 07/11/24 11:09 Dose: 50 ml Dextrose (Dextrose 50%-Water Inj 50 Ml Syringe) 50 ml IV X1 ONE Stop: 07/11/24 11:15 Last Admin: 07/11/24 11:31 Dose: 50 ml Furosemide (Furosemide Inj 10 Mg/Ml 4ml Vial) 40 mg IVP X1 ONE Stop: 07/11/24 08:21 Last Admin: 07/11/24 09:58 Dose: 40 mg Ceftriaxone Sodium 1,000 mg/ (Sodium Chloride) 50 mls @ 100 mls/hr IV X1 ONE Stop: 07/11/24 11:05 Last Infusion: 07/11/24 11:46 Dose: Infused Insulin Human Regular (Insulin Hum Regular 1 Unit/0.01 Ml (Per Unit)) 10 unit IV X1 ONE Stop: 07/11/24 11:16 Last Admin: 07/11/24 11:43 Dose: 10 unit Morphine Sulfate (Morphine Sulf Inj 10 Mg/Ml Vial) 4 mg IVP X1 ONE Stop: 07/11/24 08:21 Last Admin: 07/11/24 10:00 Dose: 4 mg Nitroglycerin (Nitroglycerin Oint 2% 1 Inch Packet) 1 inch TOP X1 ONE Stop: 07/11/24 08:21 Last Admin: 07/11/24 10:02 Dose: 1 inch Sodium Bicarbonate (Sodium Bicarb Inj 8.4% Syr 50 Ml Syringe) 100 ml IV X1 ONE Stop: 07/11/24 10:37 Last Admin: 07/11/24 10:54 Dose: 100 ml Sodium Chloride (Sodium Chloride Rt 10% 15 Ml Nebu) 5 ml INH X1 ONE Stop: 07/11/24 11:31 Assessment & Plan Plan Assessment and Plan: Neurological Alert and oriented x 2, GCS 14 #History of methamphetamine use -Consider health care social worker consult Cardiology #CHF exacerbation #HFrEF (20 to 25%, May 2024) #Dilated cardiomyopathy, global hypokinesis Patient has bilateral lower extremity edema, 2+, bedside IVC shows 2.6 cm, significantly dilated Last echo from May 2024 shows EF 20 to 25%, dilated cardiomyopathy, global hypokinesis, biatrial dilation Bedside cardiac echo shows hypokinesis, ?Thrombus noted in right atrium Plan: -Bumex 2 mg IV twice daily -Strict intake and output -Daily weight -Fluid restriction 1500 cc -Consulted cardiology, appreciate recommendations # NSTEMI type I versus type II Patient's troponin 4.209-> 6.733-> 7.412, bedside echo shows global hypokinesis, high suspicion of ACS Plan: -Aspirin 325 x 1 -Heparin ACS protocol -Consult cardiology, appreciate recommendations -Ordered echocardiogram -Follow troponin every 6 hour -Consulted cardiology, appreciate recommendations # Hypertension # Hyperlipidemia Patient was given hydralazine x 1 for hypertension, monitor blood pressure History of hyperlipidemia, follow lipid panel in a.m. Pulmonary # Acute hypoxic respiratory failure # Influenza B+ Secondary to CHF exacerbation, fluid overload, suspicion of pneumonia Well score 1.5, bilateral venous Doppler negative Plan: -Patient started on BiPAP -Follow serial ABGs -Ordered bedside echo -Started on vancomycin/Zosyn (07/11- -Follow MRSA nasal screen -Started on Tamiflu, renally adjusted (07/11- Gastrointestinal #Congestive hepatopathy #Transaminitis #Hyperbilirubinemia #History of hep C Elevated LFTs possibly due to venous congestion Plan: -Continue diuresis -Follow LFTs in a.m. Renal/Genitourinary #Acute kidney injury #Hypervolemic hyponatremia Secondary to cardiorenal syndrome vs renal vs prerenal Plan: -Continue IV diuresis -Strict GABRIELLE -Monitor urine output #Hyperkalemia Patient's potassium 6.9 on presentation Plan: -Was given 2 A of D5, given 10 units IV insulin -Calcium gluconate x 1 -Follow repeat potassium #Hypermagnesemia -Follow magnesium in a.m. #High anion gap metabolic acidosis, uncompensated with respiratory acidosis #Normal anion gap metabolic acidosis #Lactic acidosis Patient was given 2 A of bicarb in ED Follow bicarb in a.m. Follow lactate every 3 hour Endocrine Elevated TSH, normal free T4 Hematology #Coagulopathy, elevated PT, INR, D-dimer #Thrombocytopenia Monitor PT/INR in a.m., patient on heparin drip #Leukocytosis #Normocytic normochromic anemia Follow CBC in a.m., leukocytosis possibly reactive Infectious Disease #Chronic osteomyelitis #? Pneumonia Patient has lactic acidosis, ESR 34, CRP 45 Started on IV vancomycin and Zosyn (07/11- Consider repeat x-ray once patient more stable Integumentary #Right inguinal hernia Hernia noted on right inguinal area, no redness/tenderness or suspicion of incarceration DVT prophylaxis: Heparin GTT GI prophylaxis: IV Protonix Diet: N.p.o. Lines: Peripheral IV Code status: Full code Case discussed with Attending Dr. Degroot and Dr. Desir PGY3. Leilani Rojas PGY1 Disclaimer: This note was dictated by speech recognition. Minor errors in balance truing inspector may be present due to voice recognition software.
[2024-07-11 12:55] LABS: Free T4 (Free Thyroxine) 1.48 ng/dL (0.89-1.76)
[2024-07-11 13:03] LABS: Amorphous Crystals,Urine Present (Absent); Bacteria,Urine Rare; Bilirubin,Urine Negative (Negative); Blood,Urine 3+ (Negative); Clarity,Urine Turbid (Clear/Hazy); Color,Urine Yellow (Lt Yel-Yel); Glucose, Urine Negative (Negative); Hyaline Casts,Urine < 1 /hpf (0-1); Ketones,Urine Negative (Negative); Leukocyte Esterase,Urine Negative (Negative); Nitrite,Urine Negative (Negative); PH,Urine 5.5 (5.0-7.0); Protein,Urine 1+ (Neg - Trace); RBC,Urine 1 /hpf (0-3); Specific Gravity,Urine 1.019 (1.001-1.035); Squamous Epithelial Cell,Urine 1 /hpf (0-5); Urobilinogen,Urine Negative mg/dL (0.0-1.0); WBC,Urine 6 /hpf (0-5)
--- NOTE | 2024-07-11 13:31 | PC.RT ---
UNABLE TO OBTAIN SPUTUM AT THIS TIME PT ON BIPAP
[2024-07-11 14:05] LABS: Reflex Lactate? Y
[2024-07-11 14:37] LABS: Lactic Acid, 3 HR 3.5 mMol/L (0.4-2.0)
[2024-07-11 14:44] LABS: Basophils % (Auto) 0 % (0-2.5); Eosinophils % (Auto) 0 % (0-10); Hematocrit 36.4 % (41.0-53.0); Hemoglobin 11.6 g/dL (13.5-16.0); Immature Granulocytes % (Auto) 0 % (0-0); Immature Granulocytes Auto 0.04 Thou/mm3 (0.00-0.00); Lymphocytes # (Auto) 0.3 Thou/mm3 (1.0-4.8); Lymphocytes % (Auto) 4 % (10-50); Mean Corpuscular HGB Conc 31.9 g/dl (31.0-37.0); Mean Corpuscular Hemoglobin 27.5 pg (25.0-35.0); Mean Corpuscular Volume 86 fL (80-100); Monocytes # (Auto) 1.4 Thou/mm3 (0.0-0.8); Monocytes % (Auto) 15 % (0-12); Neutrophils # (Auto) 7.8 Thou/mm3 (1.8-7.7); Neutrophils % (Auto) 81 % (37-80); Nucleated Red Blood Cell # 0.09 Thou/mm3 (0.00-0.00); Nucleated Red Blood Cell % 1 /100 WBC (0); Platelet Count 94 Thou/mm3 (140-440); RDW Standard Deviation 57.1 fL (35.1-43.9); Red Blood Count 4.22 Miln/mm3 (4.50-5.90); White Blood Count 9.6 Thou/mm3 (3.8-10.6)
--- NOTE | 2024-07-11 14:47 | PC.NURSE ---
Pt admitted to ICU from ED @1350. [address] Total urine output from nelson 1.1L
[2024-07-11 14:55] LABS: Allen Test Performed/OK; Base Excess -8 (-3-3); HCO3 18 mEq/L (20-26); Inspired Oxygen, FIO2 50 %; O2 Saturation 95 % (91-98); PCO2 38 mmHg (32.0-48.0); PO2 83 mmHg (83-108); Puncture Site Right Radial; pH, Arterial 7.28 (7.35-7.45)
[2024-07-11] MEDS: hydrALAZINE INJ 20 MG/ML VIAL 10 MG IV (15:07)
[2024-07-11 15:18] LABS: Alanine Aminotransferase 284 U/L (10-49); Albumin, Serum 4.3 gm/dL (3.4-4.8); Albumin/Globulin Ratio 1.3 (1.2-2.2); Alkaline Phosphatase 138 U/L (46-116); Anion Gap 16 (7-16); Aspartate Amino Transferase 764 U/L (0-34); BUN/Creatinine Ratio 24 Ratio (12-20); Bilirubin,Total 2.2 mg/dL (0.3-1.2); Blood Urea Nitrogen 66 mg/dL (9-23); Calcium 8.1 mg/dL (8.3-10.6); Calcium (Corrected) 8.1 mg/dL (8.5-10.1); Carbon Dioxide 19.2 mMol/L (20.0-31.0); Chloride 98 mMol/L (98-107); Creatinine (Component) 2.7 mg/dL (0.6-1.3); Estimated Creatinine Clearance 29.9 mL/min (>60); Globulin 3.3 gm/dL (2.3-3.5); Glucose 72 mg/dL (74-106); Osmolality,Calculated 284 (275-295); Sodium 133 mMol/L (136-145); Total Protein 7.6 gm/dL (5.7-8.2); eGFR 26 See Note
[2024-07-11 15:19] LABS: Troponin I 6.733 ng/mL (0.0-0.045)
[2024-07-11] MEDS: PANTOPRAZOLE INJ 40 MG VIAL IVP (16:28)
[2024-07-11] MEDS: PIPER/TAZO 3.375 GM 50 ML IV ×2 (16:29→22:15)
[2024-07-11] MEDS: Aspirin 325 MG TABLET PO (16:29)
[2024-07-11] MEDS: OSELTAMIVIR 30 MG CAPSULE PO (16:29)
[2024-07-11] MEDS: Heparin/D5w 25K 250 ML Ivpb 25,000 UNIT/250 ML BAG 10.342 UNIT IV (16:30)
[2024-07-11] MEDS: HEPARIN SOD INJ 5000 UNIT/ML VIAL 5150 UNIT IV (16:30)
[2024-07-11 16:39] LABS: Troponin I 7.412 ng/mL (0.0-0.045)
--- NOTE | 2024-07-11 16:52 | PC.CM ---
Addendum entered by Sushila Leach RN 07/11/24 16:57: 1630 I called [facility] in [place] and I initiated a transfer. I provided information to Rupal duong from [facility] transfer [place]. [address] Rojas to see what doctor would be speaking to present patient. He spoke to Dr. Degroot and she would like to be the one to speak DrMazin to . Original Note: 1607 I received a referral for an emergent transfer for cardiogentic shock.
[2024-07-11] MEDS: VANCOMYCIN/NS 1 GM IVPB 200 ML IV (17:13)
[2024-07-11 17:47] LABS: Lactate (Lactic Acid) 1.7 mMol/L (0.4-2.0)
--- NOTE | 2024-07-11 17:57 | ESCONSULT_ITS ---
<Statement entered by Ismael Diaz MD - 07/13/24 07:45> I have personally seen and examined the patient separately on the above date of service and discussed the plan of care with the resident. I reviewed the resident Dr. Oleary consultation progress note and agree with the resident findings and plan in the note above and have also edited the documentation to reflect my findings and plan. 64-year-old male with a past medical history of severe systolic CHF with an EF of around 15 to 20% from polysubstance abuse [methamphetamine, alcohol, marijuana], biventricular failure, severe dilated cardiomyopathy, history of sustained VT in 2021 was on amiodarone but not compliant with any meds, large LV thrombus of around 2 x 2.5 cm in 2021 resolved now, recurrent hospital admissions with NSTEMI as well as acute on chronic CHF exacerbations, moderate PAH with an RVSP be of around 50-60 mmHg, moderate valvular heart disease with moderate MR and AI and TR, history of chronic left foot osteomyelitis, severe PAD noted on the CTA, hep C, polysubstance abuse, CKD stage III, DVT, inguinal hernia repair s/p repair in 2021 hepatitis C, hypertension, hyperlipidemia, noncompliance with medications as well as doctor visits, multiple hospitalizations signs out recurrently AMA prior to completion of treatment presented to the emergency department for further evaluation of shortness of breath as well as bilateral lower extremity pain. In the emergency department initial set of vitals showed blood pressure of 126/78 mmHg, heart rate of 76/min saturations were 96% on room air. Initial VBG showed pH of 7.15 with pCO2 of 29 as well as pO2 of 50, bicarb of 10 and saturation of 72%, WBC is 11 and Hb of 12, sodium of 127, potassium of 6.9 BUN of 59 creatinine of 2.9 glucose of 52, AST ALT was 318 and 142, initial troponin was elevated at 4.2 proBNP was 2325 elevated from before and TSH was 17, procalcitonin was elevated to 3.6. TSH and free T4 normal at 1.4. D-dimer was elevated at 3040. Chest x-ray showed possible superimposed pneumonia. Patient was admitted to the ICU because of acute hypoxic respiratory failure and was placed on BiPAP and patient was given 2 Amp of bicarb and was treated for hyperkalemia with insulin and D50 and cardiology now consulted for the rising troponins. Assessment and plan: 1. Acute hypoxic respiratory failure in the setting of acute on chronic CHF exacerbation and possible superimposed pneumonia versus flu. 2. Acute on chronic severe systolic congestive heart failure with biventricular failure with an LVEF of 15 to 20% and RV dysfunction 3. Nonischemic severe dilated cardiomyopathy in the setting of chronic severe polysubstance abuse including methamphetamine. Last use 3 days ago prior to admission 4. Acute on chronic kidney disease stage III mostly secondary to cardiorenal syndrome 5. Congestive hepatopathy with elevated liver function tests secondary to the biventricular failure versus hep C related 6. Lactic acidosis in the setting of sepsis as well as severe CHF exacerbation 7. Active flu infection-influenza B 8. History of chronic osteomyelitis of the left foot with severe PAD noncompliant with treatment 9. History of sustained VT in 2021 was on amiodarone but not taking it recently 10. Large LV thrombus of 2 x 2.5 cm in 2021 resolved on last echo in May 2024 11. Moderate PAH with RVSP of around 50 to 60 mmHg 12. Valvular heart disease with moderate MR, AI and TR 13. Severe PAD noted on CTA in 2021 14. Polysubstance abuse with methamphetamine alcohol marijuana and last admission patient was positive for fentanyl as well as benzos 15. Hepatitis C 16. Initial hypertension 17. History of DVT 18. Noncompliance with medications as well as doctor visits Patient presentation is consistent with acute on chronic CHF exacerbation with severe biventricular failure and an LVEF of 15 to 20% also RV dysfunction as noted above. Severe dilated cardiomyopathy nonischemic in the setting of severe drug abuse. Patient is fluid overload on examination NT-proBNP greater than 2300. Acute chronic kidney injury is mostly secondary to cardiorenal syndrome and also elevated LFTs mostly secondary from congestive status versus hep C. Patient does have acute hypoxic respiratory failure superimposed in the setting of positive flu test are influenza B along with some superimposed pneumonia. Patient continues to take methamphetamine and even took 3 days prior to admission which is contributing his worsening heart failure. Patient is hemodynamically stable and not on any kind of pressors at the present and his elevated lactic acid is could be in the setting of the severe heart failure along with active infection and sepsis. Recommend to aggressively diurese the patient with Bumex 2 mg IV twice daily which we started today. Strict input output, daily weights and 2 g sodium diet. Check daily labs and kidney functions along with. Patient is fluid overloaded with at least 20 L of fluid on board. Recent echocardiogram from May 2024 has been reviewed the repeat echocardiogram has been ordered by the primary team is pending. As as noted above patient did have recurrent admissions here in the recent past and March, April, May 2024 as well as June 2024 and had admissions even at [facility] in June 2024. Had multiple admissions even in 2021 and 2022. severe systolic CHF with an EF of around 15 to 20% from polysubstance abuse [methamphetamine, alcohol, marijuana], biventricular failure, severe dilated cardiomyopathy, history of sustained VT in 2021 was on amiodarone but not compliant with any meds, large LV thrombus of around 2 x 2.5 cm in 2021 resolved now, recurrent hospital admissions with NSTEMI as well as acute on chronic CHF exacerbations, moderate PAH with an RVSP be of around 50-60 mmHg, moderate valvular heart disease with moderate MR and AI and TR, history of chronic left foot osteomyelitis, severe PAD noted on the CTA, hep C, polysubstance abuse, CKD stage III, DVT, inguinal hernia repair s/p repair in 2021 hepatitis C, hypertension, hyperlipidemia, noncompliance with medications as well as doctor visits, multiple hospitalizations signs out recurrently AMA prior to completion of treatment. Regarding his elevated troponin. Troponins continue to to increase up to 7.0. Even during previous admissions patient had significant troponin elevation up to 5.0. Mostly NSTEMI type II in the setting of supply/demand mismatch with severe biventricular failure and dilated cardiomyopathy. Methamphetamine abuse patient still have elevated troponins secondary to direct toxicity to the cardiac myocytes causing eventual myocardial necrosis and myocarditis. Patient was recently admitted a week ago at [facility] with similar presentation with elevated troponins as well as CHF exacerbation patient did have a nuclear stress test performed at that time which did not show any evidence of active ischemia even though showed severely reduced ejection fraction at 14% and the left ventricular end-diastolic volume is elevated at 376 mL and end-systolic volume was 345 mL. There was some apical thinning but no clear evidence of any reversible ischemia. Patient was diagnosed with nonischemic cardiomyopathy and no cardiac cath was performed during that admission. Patient again signed out AMA 2 days after it and got readmitted here after a few days further episodes of substance abuse. Recommend aggressive medical treatment for the NSTEMI type II given the recent negative stress test. Recommend aspirin for now. Statin held due to in the elevated LFTs and beta-augustine held to have blood pressure room for the diuresis. Repeat echocardiogram has been ordered but it would not change any further management for this patient. Patient was seen by me in 2021 and 2022 regular follow-ups with [facility] which is followed up only a few times and never followed up again. He was extensively sent during those admissions to stop all kinds of substance abuse including in meth and smoking or alcohol abuse to be any candidate of any kind of destination therapy including ICD or LVAD or heart transplant but it appears that patient never stopped his drug abuse. he did not even complete his complete treatment for his previous osteomyelitis. Patient had sustained VT in 2021 and was placed on amiodarone which he is not taking and recommend to restart amiodarone at the present moment and continue to monitor in [facility] on the EKG and continue to monitor telemetry. Keep potassium greater than 4 magnesium greater than 2.0. Further treatment of influenza as well as sepsis as per the primary team. Patient appears to have a Band-Aid or has been abandoned by his family and is homeless at the present moment. Involve [employer] digital [employer] social media and crm as well as case management. Unfortunately patient continues to sign out AMA during that admission. Patient condition critical and overall prognosis is very poor. Recommend to continue aggressive medical treatment at this present point of time and discuss the goals of care with the patient or any family. There is a high probability of sudden, clinically significant or life threatening deterioration in the patient condition which required the highest level of physician preparedness to intervene urgently. I have personally spent 65 minutes of critical care time, exclusive of time spent on any procedures, in evaluation and management of this critically ill patient. Management of rest of the medical conditions as per primary team and other consultants. Thank you for the consult and allowing me to participate in the care of the patient. Cardiology will continue to follow. Ismael Diaz M.D. Interventional Cardiology HPI Data of Consult Requesting Physician: Salud Degroot MD Admitting Provider: Salud Degroot MD Attending Provider: Salud Degroot MD Primary Care Provider: Physician No Primary/Family Consult Narrative History of present illness: 64-year-old male with a past medical history of HFrEF with ejection fraction of 20-25%, methamphetamine abuse, dilated cardiomyopathy secondary to meth use, history of hep C, chronic left foot osteomyelitis, hypertension, hyperlipidemia, medical noncompliance and homelessness who comes to [facility] for an evaluation of for chronic leg pain, and SOB. Pt has numerous admissions into the hospital for similar complaints. He was recently seen in [facility] for similar complaints in which he had a cardiac stress test done which was negative and also had an echo which showed similar findings to previous echo's done at [facility] in addition to an EF ~15%. HPI is limited as pt is experiencing some pain and currently is on biPAP. ED Course: Upon arrival to the ED, afebrile, blood pressure of 126/78, heart rate 76, saturating 97% on room air. He was worked up was found to have a white count of 11, hemoglobin of 12, D-dimer of 3040, sodium of 127, potassium 6.9, BUN/creatinine of 59 and 2.9 respectively, glucose of 52, AST ALT 318 142 respectively, Troponin 4.2, BNP of 2325 TSH of 17, Pro-Eusebio of 3.6, free T4 1.4 anion gap of 20. Initial ABG showed pH of 7.15 pCO2 of 29, bicarb of 10. Chest x-ray shows superimposed ammonia left base. There was concern for patient need to be intubated which ICU was consulted. He was started on BiPAP and was also given 2 A of bicarb. Was also given additional amp of D50 and insulin. Past medical history: As above Surgeries: Multiple hernia repair Medications: ASA, Eliquis, metoprolol, Bumex, Allergies: No known allergies Family history: Limited as patient does not state Social: Homeless, history of alcohol, heroin, fentanyl and meth abuse cc:: cc: Salud Degroot MD Review of Systems Review of Systems Narrative Review of Systems: 12 point ROS is limited as otherwise negative unless stated directly in HPI. Exam Vital Signs Temp Pulse Resp BP Pulse Ox O2 Del Method O2 Flow Rate 97.3 F 84 16 117/81 98 BiPAP 15 07/11/24 16:00 07/11/24 17:00 07/11/24 17:00 07/11/24 17:00 07/11/24 17:00 07/11/24 13:00 07/11/24 11:01 FiO2 50 07/11/24 15:35 Narrative Exam General: AAOx3, in mild distress, disheveled and unkempt man with chest tattoos, HEENT: Conjunctiva clear, poor dentention Cardiovascular: S1, S2, radial pulses +2 bilat, RRR Pulmonary: Currently on biPAP IPAP 12, EPAP 6, some crackles heard GI: Slight tenderness to palpitation of abdomen, no guarding, rigidity, rebound tenderness or distension, some bowel sounds heard : Inguinal hernia appreciated, non-reducible, R side Extremities: +2 pitting edema in lower extremities bilaterally, venous stasis present bilat, extremities a bit cold to touch Neuro: AAOx3, no focal motor or sensory deficits in the UE or LE bilat Results Labs 07/11/24 14:29 07/11/24 14:29 Labs: Short CBC 07/11/24 07/11/24 Range/Units 09:40 14:29 WBC 11.4 H D 9.6 (3.8-10.6) Thou/mm3 Hgb 12.0 L 11.6 L (13.5-16.0) g/dL Hct 38.5 L 36.4 L (41.0-53.0) % Plt Count 91 L D 94 L (140-440) Thou/mm3 BMP 07/11/24 07/11/24 09:40 14:29 Sodium 127 L 133 L Potassium 6.9 H* 5.0 D Chloride 96 L 98 Carbon Dioxide 11.4 L* 19.2 L BUN 59 H 66 H Creatinine 2.9 H D 2.7 H Glucose 52 L 72 L Calcium 8.6 8.1 L Cardiac Enzymes 07/11/24 07/11/24 07/11/24 Range/Units 09:40 14:29 15:42 Troponin I 4.209 H* 6.733 H* D 7.412 H* D (0.0-0.045) ng/mL Liver Function 07/11/24 07/11/24 Range/Units 09:40 14:29 Total Bilirubin 2.7 H 2.2 H D (0.3-1.2) mg/dL AST 318 H 764 H* (0-34) U/L ALT 142 H 284 H (10-49) U/L Alkaline Phosphatase 137 H 138 H (46-116) U/L Albumin 4.6 4.3 (3.4-4.8) gm/dL Urine 07/11/24 Range/Units 11:45 Urine Color Yellow (Lt Yel-Yel) Urine Clarity Turbid A (Clear/Hazy) Urine pH 5.5 (5.0-7.0) Ur Specific [place] 1.019 (1.001-1.035) Urine Protein 1+ A (Neg - Trace) Urine Glucose (UA) Negative (Negative) ABG Interpretation ABG results: 07/11/24 07/11/24 07/11/24 10:01 10:30 14:38 ABG pH 7.15 L* 7.15 L* 7.28 L D ABG pCO2 29 L 30 L 38 ABG pO2 50 L* 47 L* 83 D ABG HCO3 10 L 11 L 18 L ABG O2 Saturation 72 L 68 L 95 ABG Base Excess -17 L -17 L -8 L Quality Measures Quality Measures none Medications Home Medications and Allergies Allergies Allergy/AdvReac Type Severity Reaction Status Date / Time No Known Allergies Allergy Verified 06/11/24 12:46 Visit Medications Acetaminophen (Acetaminophen 325 Mg Tablet) 650 mg PO Q6H PRN PRN Reason: Fever >101.5 Stop: 08/10/24 11:18 Bumetanide (Bumetanide Inj 0.25 Mg/Ml Vial 4 Ml) 2 mg IVP BID JANETTE Stop: 08/10/24 20:59 Dextrose (Dextrose 50%-Water Inj 50 Ml Syringe) 25 ml IV Q15MIN PRN PRN Reason: BG 50-70 responsive npo pt Stop: 08/10/24 11:14 Dextrose (Dextrose 50%-Water Inj 50 Ml Syringe) 50 ml IV Q15MIN PRN PRN Reason: BG <50 OR BG <70 & pt unresponsive Stop: 08/10/24 11:14 Last Admin: 07/11/24 13:29 Dose: 50 ml Glucagon (Glucagon Inj 1 Mg Vial) 1 mg IM Q15MIN PRN PRN Reason: BG <70, and no IV access Heparin Sodium/Dextrose (Heparin In D5w Ivpb) 25,000 unit in 250 mls @ 10.342 mls/hr IV .Q24H JANETTE; Protocol Stop: 07/25/24 15:29 Last Admin: 07/11/24 16:30 Dose: 12 units/kg/hr, 10.342 mls/hr Piperacillin/Tazobactam/Dextrose (Zosyn) 50 mls @ 12.5 mls/hr IV Q8HR JANETTE Stop: 07/18/24 21:59 Vancomycin/Sodium Chloride (Vancomycin/Ns 1 Gm Ivpb) 200 mls @ 120 mls/hr IV X1 ONE Stop: 07/11/24 18:09 Last Admin: 07/11/24 17:13 Dose: 120 mls/hr Oseltamivir Phosphate (Oseltamivir 30 Mg Capsule) 30 mg PO QDAY JANETTE Stop: 07/16/24 15:44 Last Admin: 07/11/24 16:29 Dose: 30 mg Pantoprazole Sodium (Pantoprazole Inj 40 Mg Vial) 40 mg IVP QDAY JANETTE Stop: 08/10/24 15:44 Last Admin: 07/11/24 16:28 Dose: 40 mg Pharmacy Consult (Vancomycin Pharmacy To Dose 1 Each Each) 1 each IV QDAY PRN PRN Reason: PROTOCOL Stop: 08/10/24 16:14 Sennosides (Senna Tablet) 1 tab PO QDAY PRN; Protocol PRN Reason: constipation Stop: 08/10/24 11:18 Discontinued Medications Aspirin (Aspirin 300 Mg Supp) 300 mg MT X1 ONE Stop: 07/11/24 15:31 Last Admin: 07/11/24 16:24 Dose: Not Given Aspirin (Aspirin 325 Mg Tablet) 325 mg PO X1 ONE Stop: 07/11/24 16:24 Last Admin: 07/11/24 16:29 Dose: 325 mg Calcium Chloride (Calcium Chloride 10% Inj 10 Ml Syrg) 10 ml IV X1 ONE Stop: 07/11/24 11:16 Last Admin: 07/11/24 11:46 Dose: Not Given Calcium Gluconate (Calcium Gluconate 10% Inj 1 Gm/10 Ml Vial) 1 gm IV X1 ONE Stop: 07/11/24 11:31 Last Admin: 07/11/24 11:38 Dose: 1 gm Dextrose (Dextrose 50%-Water Inj 50 Ml Syringe) 50 ml IV X1 ONE Stop: 07/11/24 11:03 Last Admin: 07/11/24 11:09 Dose: 50 ml Dextrose (Dextrose 50%-Water Inj 50 Ml Syringe) 50 ml IV X1 ONE Stop: 07/11/24 11:15 Last Admin: 07/11/24 11:31 Dose: 50 ml Furosemide (Furosemide Inj 10 Mg/Ml 4ml Vial) 40 mg IVP X1 ONE Stop: 07/11/24 08:21 Last Admin: 07/11/24 09:58 Dose: 40 mg Heparin Sodium (Porcine) (Heparin Sod Inj 5000 Unit/Ml Vial) 5,150 unit 60 unit/kg (5150 unit) IV X1 ONE; Protocol Stop: 07/11/24 15:31 Last Admin: 07/11/24 16:30 Dose: 5,150 unit Hydralazine HCl (Hydralazine Inj 20 Mg/Ml Vial) 10 mg IV X1 ONE Stop: 07/11/24 14:58 Last Admin: 07/11/24 15:07 Dose: 10 mg Ceftriaxone Sodium 1,000 mg/ (Sodium Chloride) 50 mls @ 100 mls/hr IV X1 ONE Stop: 07/11/24 11:05 Last Infusion: 07/11/24 11:46 Dose: Infused Doxycycline Hyclate 100 mg/ (Sodium Chloride) 100 mls @ 100 mls/hr IV BID JANETTE Stop: 07/18/24 20:59 Piperacillin/Tazobactam/Dextrose (Zosyn) 50 mls @ 100 mls/hr IV X1 ONE Stop: 07/11/24 16:44 Last Admin: 07/11/24 16:29 Dose: 100 mls/hr Insulin Human Regular (Insulin Hum Regular 1 Unit/0.01 Ml (Per Unit)) 10 unit IV X1 ONE Stop: 07/11/24 11:16 Last Admin: 07/11/24 11:43 Dose: 10 unit Morphine Sulfate (Morphine Sulf Inj 10 Mg/Ml Vial) 4 mg IVP X1 ONE Stop: 07/11/24 08:21 Last Admin: 07/11/24 10:00 Dose: 4 mg Nitroglycerin (Nitroglycerin Oint 2% 1 Inch Packet) 1 inch TOP X1 ONE Stop: 07/11/24 08:21 Last Admin: 07/11/24 10:02 Dose: 1 inch Sodium Bicarbonate (Sodium Bicarb Inj 8.4% Syr 50 Ml Syringe) 100 ml IV X1 ONE Stop: 07/11/24 10:37 Last Admin: 07/11/24 10:54 Dose: 100 ml Sodium Chloride (Sodium Chloride Rt 10% 15 Ml Nebu) 5 ml INH X1 ONE Stop: 07/11/24 11:31 Last Admin: 07/11/24 15:03 Dose: Not Given Assessment & Plan Plan Assessment 64-year-old male with a past medical history of HFrEF with ejection fraction of 20-25%, methamphetamine abuse, 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 #Cardiorenal syndrome #NSTEMI type I vs type II #Acute on chronic exacerbation of HFrEF (20 to 25%, May 2024) #Non ischemic dilated cardiomyopathy, with wall motion abnormalities #Hx of HTN Patient has had multiple admissions for similar complaints He recently left AM from [facility] for similar symptoms in which she had a cardiac stress test which is unremarkable and also echo which showed similar findings to previous echocardiograms with EF of ~15% ICU did bedside echo which showed bedside IVC shows 2.6 cm, significantly dilated Last echo from May 2024 shows EF 20 to 25%, dilated cardiomyopathy, global hypokinesis, biatrial dilation Troponin 4.2 ->6.7 ->7.4 Patient is unlikely to be a cath candidate at this time but will continue with current management Nuclear Stress test in [facility] showed no evidence of stress induced ischemia, however severely decreased LVEF and increased EDV and global hypokinesis Pt has not had Cr to be 2.9 before, previous AKIs show 1.4-1.7, a one time bout of 2.0 Pt will need aggressive diuresis at this point Plan: ?We recommend Bumex drip or Bumex 2g q4h ?Strict intake and output ?Daily weight ?Recommend for goal diuresis -2 to -3 L net negative ?Fluid restriction 1500 cc not ?Continue to trend troponin ?Continue with aspirin ?Patient is on heparin drip started by ICU team ?Echo ?Keep magnesium and potassium above 2 and 4 respectively #Acute on chronic hypoxic respiratory failure #Influenza B+ #Congestive hepatopathy #Transaminitis #Hyperbilirubinemia #History of hep C #Acute kidney injury #Hypervolemic hyponatremia #Hyperkalemia #Hypermagnesemia #High anion gap metabolic acidosis, uncompensated with respiratory acidosis #Lactic acidosis #Coagulopathy, elevated PT, INR, D-dimer #Thrombocytopenia #Leukocytosis #Normocytic normochromic anemia #Chronic osteomyelitis #Right inguinal hernia #Polysubstance abuse Management above handled by ICU team Patient seen and care discussed with my attending physician, Dr. Joe Duron, PGY-1
[2024-07-11] MEDS: DEXTROSE 50%-WATER INJ 50 ML SYRINGE 25 ML IV (18:45)
[2024-07-11] MEDS: BUMETANIDE INJ 0.25 MG/ML VIAL 4 ML 2 MG IVP (20:00)
[2024-07-11 22:53] LABS: Troponin I 10.336 ng/mL (0.0-0.045)
[2024-07-11 23:16] LABS: Partial Thromboplastin Time 71.2 Seconds (22.0-36.0)
[2024-07-12] VITALS (30 sets, daily range): BP systolic 100–134; BP diastolic 60–91; PULSE 69–123; RESP 11–32; TEMP 36.1–36.8; O2SAT 78–100
[2024-07-12] MEDS: PIPER/TAZO 3.375 GM 50 ML IV ×2 (06:00→14:21)
[2024-07-12 06:04] LABS: INR 1.7 (0.9-1.3); Partial Thromboplastin Time 56.2 Seconds (22.0-36.0); Prothrombin Time 18.3 Seconds (9.0-12.2)
[2024-07-12 06:39] LABS: Basophils % (Auto) 0 % (0-2.5); Eosinophils % (Auto) 0 % (0-10); Hematocrit 37.6 % (41.0-53.0); Hemoglobin 12.4 g/dL (13.5-16.0); Immature Granulocytes % (Auto) 0 % (0-0); Immature Granulocytes Auto 0.01 Thou/mm3 (0.00-0.00); Lymphocytes # (Auto) 0.3 Thou/mm3 (1.0-4.8); Lymphocytes % (Auto) 3 % (10-50); Mean Corpuscular Hemoglobin 27.8 pg (25.0-35.0); Mean Corpuscular Volume 84 fL (80-100); Monocytes # (Auto) 0.9 Thou/mm3 (0.0-0.8); Monocytes % (Auto) 12 % (0-12); Neutrophils # (Auto) 6.4 Thou/mm3 (1.8-7.7); Neutrophils % (Auto) 84 % (37-80); Nucleated Red Blood Cell # 0.04 Thou/mm3 (0.00-0.00); Nucleated Red Blood Cell % 1 /100 WBC (0); Platelet Count 86 Thou/mm3 (140-440); RDW Standard Deviation 54.9 fL (35.1-43.9); Red Blood Count 4.46 Miln/mm3 (4.50-5.90); White Blood Count 7.6 Thou/mm3 (3.8-10.6)
[2024-07-12] MEDS: HEPARIN SOD INJ 5000 UNIT/ML VIAL 10 ML 4000 UNIT IV (06:45)
[2024-07-12 07:31] LABS: Alanine Aminotransferase 409 U/L (10-49); Albumin, Serum 3.9 gm/dL (3.4-4.8); Albumin/Globulin Ratio 1.3 (1.2-2.2); Alkaline Phosphatase 125 U/L (46-116); Anion Gap 13 (7-16); BUN/Creatinine Ratio 25 Ratio (12-20); Bilirubin,Total 2.2 mg/dL (0.3-1.2); Blood Urea Nitrogen 63 mg/dL (9-23); Calcium 8.2 mg/dL (8.3-10.6); Calcium (Corrected) 8.3 mg/dL (8.5-10.1); Carbon Dioxide 25.3 mMol/L (20.0-31.0); Cardiac Risk Estimate 3.2 RATIO (4.0-6.7); Chloride 95 mMol/L (98-107); Cholesterol 117 mg/dL (132-200); Creatinine (Component) 2.5 mg/dL (0.6-1.3); Estimated Creatinine Clearance 32.3 mL/min (>60); Globulin 3.1 gm/dL (2.3-3.5); Glucose 66 mg/dL (74-106); HDL Cholesterol 37 mg/dL (40-60); LDL Cholesterol,Calculated 72 mg/dL (0-130); Magnesium 2.1 mg/dL (1.6-2.6); Osmolality,Calculated 282 (275-295); Phosphorous 6.2 mg/dL (2.4-5.1); Potassium 4.9 mMol/L (3.4-5.1); Sodium 133 mMol/L (136-145); Triglycerides 38 mg/dL (30-150); eGFR 28 See Note
[2024-07-12 07:40] LABS: Troponin I 10.469 ng/mL (0.0-0.045)
[2024-07-12 07:51] LABS: Aspartate Amino Transferase 1152 U/L (0-34)
--- NOTE | 2024-07-12 08:31 | PC.NURSE ---
[facility] downtime occurred on 07-12-24 from 0100 to 0700
--- NOTE | 2024-07-12 08:59 | ESPR_ITS ---
<Statement entered by Jose Desir DO - 07/12/24 18:29> Senior attestation: Patient was examined and case was reviewed with team including attending physician. Note reviewed, I agree with most of its contents and agree with the patient's care. Patient was weaned off BiPAP to nasal cannula today, diuresis reduced to IV bumex 1mg BID, output ~4-5L last 24 hours. Will follow up with q8hr labs to assess for hypokalemia. Troponin noted to peak today, will continue IV heparin drip and give boluses as indicated by protocol. Added carvedilol 3.125mg BID and hydralazine 50mg BID, will continue broad spectrum IV abx with vancomycin/zosyn, continue tamiflu. RUQ ultrasound ordered to transaminitis findings. Patient was noticed to have asymptomatic PVCs, cardiology finding, will start IV amiodarone and transition to PO amiodarone. Patient may be suitable for catheterization once more stabilized, cardiology team following. Jose Desir DO PGY-3 Documentation for date of: 07/12/24 Subjective Subjective Interval history: Mr. Sheikh is a 64-year-old male with past medical history of HFrEF EF 20 to 25%, May 2024, dilated cardiomyopathy, hypertension, hyperlipidemia, chronic left foot osteomyelitis, hepatitis C, cholelithiasis, methamphetamine use and homelessness who was BIBA to [facility] emergency department on 07/11 with chief complaint of shortness of breath and bilateral lower extremity pain. Patient is alert and oriented x 2, significantly short of breath unable to provide much details about his illness, complains of full body pain. Patient was seen in the ED about 5 days ago for retrosternal chest pain, worsening lower extremity edema and shortness of breath. Per patient's nurse, patient was extensively short of breath ever since he was brought in from the triage area, tripoding was noted by nurse. In the ED patient's ABG was noted to have pH of 7.15, pCO2 29 and pO2 50, patient was noted to be hypoxic on pulse ox, otherwise labs were significant for potassium 6.9, anion gap of 20 and also did have elevated troponin of 4.2. Patient was placed on BiPAP and decision was made to admit patient to ICU 07/12/2024: Patient seen and examined at bedside, overnight patient's blood sugar was low, was given 7up, did have an episode of emesis, was off of BiPAP for some duration, was eventually restarted on BiPAP. Otherwise at bedside today patient is alert and oriented x 3, able to hold conversation, reports significant improvement in shortness of breath and patient had urine output hopeful about 4 to 4.5 L in the last 24 hours. Patient will be transition off of BiPAP to nasal cannula, will continue diuresis with Bumex 1 mg IV twice daily, will continue to monitor urine output closely. Patient's troponin continue to trend up, latest troponin 10.469, patient started on Coreg 3.125 twice daily and hydralazine 50 mg twice daily, will repeat EKG, continue to trend troponin and continue aspirin and heparin drip. Patient has pending MRSA nasal screen, will continue Vanco/Zosyn and Tamiflu. Will obtain liver ultrasound due to transaminitis. Will monitor renal function and urine output closely Exam Vital Signs Temp Pulse Resp BP Pulse Ox O2 Del Method O2 Flow Rate 98.2 F 82 32 H 132/83 H 82 L BiPAP 15 07/12/24 00:00 07/12/24 06:22 07/12/24 06:22 07/12/24 00:00 07/12/24 06:22 07/12/24 00:00 07/11/24 11:01 FiO2 50 07/12/24 06:22 Narrative Exam Physical Exam General: 64-year-old male, alert and oriented x 3, short of breath, on BiPAP HEENT: Normocephalic, atraumatic, mucous membranes moist, pupils bilaterally reactive. Heart: Regular rate and rhythm, no murmurs. Lungs: Crackles heard bilaterally, improved. Abdomen: Soft, non-distended, non-tender, positive bowel sounds. Neurologic: GCS 15, following commands, alert and oriented x 3 Extremities: 2+ bilateral lower extremity edema, right leg> swollen than left leg, pitting edema, callus bilaterally feet, feet cool. Objective Labs 07/12/24 04:42 07/12/24 04:42 Labs: Laboratory Results - last 24 hr 07/11/24 07/11/24 07/11/24 09:40 10:01 10:30 WBC 11.4 H D RBC 4.37 L Hgb 12.0 L Hct 38.5 L MCV 88 MCH 27.5 MCHC 31.2 RDW Std Deviation 58.7 H Plt Count 91 L D Neut % (Auto) 85 H Lymph % (Auto) 3 L Hughes % (Auto) 12 Eos % (Auto) 0 Baso % (Auto) 0 Neut # (Auto) 9.6 H Lymph # (Auto) 0.3 L Hughes # (Auto) 1.3 H Eos # (Auto) 0.0 Baso # (Auto) 0.0 Immature Gran # (Auto) 0.07 H Absolute Nucleated RBC 0.11 H Immature Gran % 1 H Nucleated RBC % 1 H ESR PT 20.3 H D INR 1.9 H APTT 29.8 D-Dimer 3040 H Puncture Site Right Radial Right Brachial ABG pH 7.15 L* 7.15 L* ABG pCO2 29 L 30 L ABG pO2 50 L* 47 L* ABG HCO3 10 L 11 L ABG O2 Saturation 72 L 68 L ABG Base Excess -17 L -17 L Oxygen Liter Flow 5 2 FiO2 Sodium 127 L Potassium 6.9 H* Chloride 96 L Carbon Dioxide 11.4 L* Anion Gap 20 H BUN 59 H Creatinine 2.9 H D Estim Creat Clear Calc 27.8 L eGFR 24 L BUN/Creatinine Ratio 20 Glucose 52 L Calculated Osmolality 268 L Lactic Acid Calcium 8.6 Corrected Calcium 8.6 Phosphorus Magnesium 2.7 H Total Bilirubin 2.7 H AST 318 H ALT 142 H Alkaline Phosphatase 137 H Troponin I 4.209 H* C-Reactive Prot, Quant B-Natriuretic Peptide 2325 H* Total Protein 8.2 Albumin 4.6 Globulin 3.6 H Albumin/Globulin Ratio 1.3 Triglycerides Cholesterol LDL Cholesterol, Calc HDL Cholesterol Cholesterol/HDL Ratio Beta-Hydroxybutyrate/Acetoacetate Procalcitonin TSH 16.68 H Free T4 Ur Collection Type Urine Color Urine Clarity Urine pH Ur Specific [place] Urine Protein Urine Glucose (UA) Urine Ketones Urine Blood Urine Nitrite Urine Bilirubin Urine Urobilinogen (Auto) Ur Leukocyte Esterase Urine RBC Urine WBC Ur Squamous Epith Cells Amorphous Crystals Urine Bacteria Hyaline Casts Ethyl Alcohol < 3.0 07/11/24 07/11/24 07/11/24 10:59 11:45 14:29 WBC 9.6 RBC 4.22 L Hgb 11.6 L Hct 36.4 L MCV 86 MCH 27.5 MCHC 31.9 RDW Std Deviation 57.1 H Plt Count 94 L Neut % (Auto) 81 H Lymph % (Auto) 4 L Hughes % (Auto) 15 H Eos % (Auto) 0 Baso % (Auto) 0 Neut # (Auto) 7.8 H Lymph # (Auto) 0.3 L Hughes # (Auto) 1.4 H Eos # (Auto) 0.0 Baso # (Auto) 0.0 Immature Gran # (Auto) 0.04 H Absolute Nucleated RBC 0.09 H Immature Gran % 0 Nucleated RBC % 1 H ESR 34 H PT INR APTT D-Dimer Puncture Site ABG pH ABG pCO2 ABG pO2 ABG HCO3 ABG O2 Saturation ABG Base Excess Oxygen Liter Flow FiO2 Sodium 133 L Potassium 5.0 D Chloride 98 Carbon Dioxide 19.2 L Anion Gap 16 BUN 66 H Creatinine 2.7 H Estim Creat Clear Calc 29.9 L eGFR 26 L BUN/Creatinine Ratio 24 H Glucose 72 L Calculated Osmolality 284 Lactic Acid 8.7 H* 3.5 H Calcium 8.1 L Corrected Calcium 8.1 L Phosphorus Magnesium Total Bilirubin 2.2 H D AST 764 H* ALT 284 H Alkaline Phosphatase 138 H Troponin I 6.733 H* D C-Reactive Prot, Quant 4.5 H B-Natriuretic Peptide Total Protein 7.6 Albumin 4.3 Globulin 3.3 Albumin/Globulin Ratio 1.3 Triglycerides Cholesterol LDL Cholesterol, Calc HDL Cholesterol Cholesterol/HDL Ratio Beta-Hydroxybutyrate/Acetoacetate 0.3 Procalcitonin 3.63 H TSH Free T4 1.48 Ur Collection Type Catheter Urine Color Yellow Urine Clarity Turbid A Urine pH 5.5 Ur Specific [place] 1.019 Urine Protein 1+ A Urine Glucose (UA) Negative Urine Ketones Negative Urine Blood 3+ A Urine Nitrite Negative Urine Bilirubin Negative Urine Urobilinogen (Auto) Negative Ur Leukocyte Esterase Negative Urine RBC 1 Urine WBC 6 H Ur Squamous Epith Cells 1 Amorphous Crystals Present A Urine Bacteria Rare Hyaline Casts < 1 Ethyl Alcohol 07/11/24 07/11/24 07/11/24 14:38 15:42 17:32 WBC RBC Hgb Hct MCV MCH MCHC RDW Std Deviation Plt Count Neut % (Auto) Lymph % (Auto) Hughes % (Auto) Eos % (Auto) Baso % (Auto) Neut # (Auto) Lymph # (Auto) Hughes # (Auto) Eos # (Auto) Baso # (Auto) Immature Gran # (Auto) Absolute Nucleated RBC Immature Gran % Nucleated RBC % ESR PT INR APTT D-Dimer Puncture Site Right Radial ABG pH 7.28 L D ABG pCO2 38 ABG pO2 83 D ABG HCO3 18 L ABG O2 Saturation 95 ABG Base Excess -8 L Oxygen Liter Flow FiO2 50 Sodium Potassium Chloride Carbon Dioxide Anion Gap BUN Creatinine Estim Creat Clear Calc eGFR BUN/Creatinine Ratio Glucose Calculated Osmolality Lactic Acid 1.7 Calcium Corrected Calcium Phosphorus Magnesium Total Bilirubin AST ALT Alkaline Phosphatase Troponin I 7.412 H* D C-Reactive Prot, Quant B-Natriuretic Peptide Total Protein Albumin Globulin Albumin/Globulin Ratio Triglycerides Cholesterol LDL Cholesterol, Calc HDL Cholesterol Cholesterol/HDL Ratio Beta-Hydroxybutyrate/Acetoacetate Procalcitonin TSH Free T4 Ur Collection Type Urine Color Urine Clarity Urine pH Ur Specific [place] Urine Protein Urine Glucose (UA) Urine Ketones Urine Blood Urine Nitrite Urine Bilirubin Urine Urobilinogen (Auto) Ur Leukocyte Esterase Urine RBC Urine WBC Ur Squamous Epith Cells Amorphous Crystals Urine Bacteria Hyaline Casts Ethyl Alcohol 07/11/24 07/11/24 07/12/24 21:48 22:34 04:42 WBC 7.6 RBC 4.46 L Hgb 12.4 L Hct 37.6 L MCV 84 MCH 27.8 MCHC 33.0 RDW Std Deviation 54.9 H Plt Count 86 L Neut % (Auto) 84 H Lymph % (Auto) 3 L Hughes % (Auto) 12 Eos % (Auto) 0 Baso % (Auto) 0 Neut # (Auto) 6.4 Lymph # (Auto) 0.3 L Hughes # (Auto) 0.9 H Eos # (Auto) 0.0 Baso # (Auto) 0.0 Immature Gran # (Auto) 0.01 H Absolute Nucleated RBC 0.04 H Immature Gran % 0 Nucleated RBC % 1 H ESR PT 18.3 H INR 1.7 H APTT 71.2 H D 56.2 H D D-Dimer Puncture Site ABG pH ABG pCO2 ABG pO2 ABG HCO3 ABG O2 Saturation ABG Base Excess Oxygen Liter Flow FiO2 Sodium 133 L Potassium 4.9 Chloride 95 L Carbon Dioxide 25.3 Anion Gap 13 BUN 63 H Creatinine 2.5 H Estim Creat Clear Calc 32.3 L eGFR 28 L BUN/Creatinine Ratio 25 H Glucose 66 L Calculated Osmolality 282 Lactic Acid Calcium 8.2 L Corrected Calcium 8.3 L Phosphorus 6.2 H Magnesium 2.1 Total Bilirubin 2.2 H AST 1152 H* ALT 409 H Alkaline Phosphatase 125 H Troponin I 10.336 H* D 10.469 H* C-Reactive Prot, Quant B-Natriuretic Peptide Total Protein 7.0 Albumin 3.9 Globulin 3.1 Albumin/Globulin Ratio 1.3 Triglycerides 38 Cholesterol 117 L LDL Cholesterol, Calc 72 HDL Cholesterol 37 L Cholesterol/HDL Ratio 3.2 L Beta-Hydroxybutyrate/Acetoacetate Procalcitonin TSH Free T4 Ur Collection Type Urine Color Urine Clarity Urine pH Ur Specific [place] Urine Protein Urine Glucose (UA) Urine Ketones Urine Blood Urine Nitrite Urine Bilirubin Urine Urobilinogen (Auto) Ur Leukocyte Esterase Urine RBC Urine WBC Ur Squamous Epith Cells Amorphous Crystals Urine Bacteria Hyaline Casts Ethyl Alcohol ABG Interpretation ABG results: 07/11/24 07/11/24 07/11/24 10:01 10:30 14:38 ABG pH 7.15 L* 7.15 L* 7.28 L D ABG pCO2 29 L 30 L 38 ABG pO2 50 L* 47 L* 83 D ABG HCO3 10 L 11 L 18 L ABG O2 Saturation 72 L 68 L 95 ABG Base Excess -17 L -17 L -8 L Quality Measures Quality Measures none Assessment & Plan Assessment Current Active Medications: Generic Name Dose Route Start Last Admin Trade Name Freq PRN Reason Stop Dose Admin Acetaminophen 650 mg 07/11/24 11:19 Acetaminophen 325 Mg Tablet PO 08/10/24 11:18 Q6H PRN Fever >101.5 Aspirin 81 mg 07/12/24 09:00 Aspirin Ec 81 Mg Tabec PO 08/11/24 08:59 QDAY JANETTE Bumetanide 2 mg 07/12/24 09:00 Bumetanide Inj 0.25 Mg/Ml Vial 4 Ml IVP 08/11/24 08:59 BID JANETTE Dextrose 25 ml 07/11/24 11:15 07/11/24 18:45 Dextrose 50%-Water Inj 50 Ml Syringe IV 08/10/24 11:14 25 ml Q15MIN PRN Administration BG 50-70 responsive npo pt Dextrose 50 ml 07/11/24 11:15 07/11/24 13:29 Dextrose 50%-Water Inj 50 Ml Syringe IV 08/10/24 11:14 50 ml Q15MIN PRN Administration BG <50 OR BG <70 & pt unresponsive Glucagon 1 mg 07/11/24 11:15 Glucagon Inj 1 Mg Vial IM Q15MIN PRN BG <70, and no IV access Heparin Sodium (Porcine) 4,000 unit 07/12/24 06:45 07/12/24 06:45 Heparin Sod Inj 5000 Unit/Ml Vial 10 Ml IV 07/12/24 06:46 4,000 unit X1 ONE Administration Heparin Sodium/Dextrose 25,000 unit in 250 mls @ 10.342 mls/hr 07/11/24 15:30 07/12/24 07:40 Heparin In D5w Ivpb IV 07/25/24 15:29 12 units/kg/hr .Q24H JANETTE 10.342 mls/hr Titration Protocol 12 UNITS/KG/HR Piperacillin/Tazobactam/Dextrose 50 mls @ 12.5 mls/hr 07/11/24 22:00 07/12/24 06:00 Zosyn IV 07/18/24 21:59 12.5 mls/hr Q8HR JANETTE Administration Vancomycin/Sodium Chloride 200 mls @ 120 mls/hr 07/12/24 22:00 Vancomycin/Ns 1 Gm Ivpb IV 07/19/24 21:59 Q24H JANETTE Oseltamivir Phosphate 30 mg 07/11/24 15:45 07/11/24 16:29 Oseltamivir 30 Mg Capsule PO 07/16/24 15:44 30 mg QDAY JANETTE Administration Pantoprazole Sodium 40 mg 07/11/24 15:45 07/11/24 16:28 Pantoprazole Inj 40 Mg Vial IVP 08/10/24 15:44 40 mg QDAY JANETTE Administration Pharmacy Consult 1 each 07/11/24 16:15 Vancomycin Pharmacy To Dose 1 Each Each IV 08/10/24 16:14 QDAY PRN PROTOCOL Sennosides 1 tab 07/11/24 11:19 Senna Tablet PO 08/10/24 11:18 QDAY PRN constipation Protocol Plan Assessment and Plan: Mr. Sheikh is a 64-year-old male with past medical history of HFrEF EF 20 to 25%, May 2024, dilated cardiomyopathy, hypertension, hyperlipidemia, chronic left foot osteomyelitis, hepatitis C, cholelithiasis, methamphetamine use and homelessness who was BIBA to [facility] emergency department on 07/11 with chief complaint of shortness of breath and bilateral lower extremity pain. Patient upgraded to ICU for high suspicion of cardiogenic shock, NSTEMI type I and CHF exacerbation. Neurological Alert and oriented x 3, GCS 15 #History of methamphetamine use -Consider social work specialist consult Cardiology #CHF exacerbation #HFrEF (20 to 25%, May 2024) #Dilated cardiomyopathy, global hypokinesis Patient has bilateral lower extremity edema, 2+, bedside IVC shows 2.6 cm, significantly dilated Last echo from May 2024 shows EF 20 to 25%, dilated cardiomyopathy, global hypokinesis, biatrial dilation Bedside cardiac echo shows hypokinesis, ?Thrombus noted in right atrium 07/12-patient had about 4.5 L of urine output overnight Plan: -Bumex 1 mg IV twice daily -Coreg 3.125 twice daily -Hydralazine 50 mg twice daily -Will hold starting patient on Entresto/BERNADETTE/ARB's in setting of GEOVANY -Strict intake and output -Daily weight -Fluid restriction 1500 cc -Consulted cardiology, appreciate recommendations # NSTEMI type I versus type II Patient's troponin 4.209-> 6.733-> 7.412->10.336->10.469, bedside echo shows global hypokinesis, high suspicion of ACS. On admission EKG shows evidence of ?ST depression Zhanna score in admission 157 points Was given loading dose aspirin Plan: -Continue heparin ACS protocol -Continue aspirin 81 mg daily -Ordered repeat EKG today -Consult cardiology, appreciate recommendations -Ordered echocardiogram, transferring patient for echo. -Follow troponin every 6 hour -Consulted cardiology, appreciate recommendations # Hypertension # Hyperlipidemia Patient was given hydralazine x 1 for hypertension, monitor blood pressure Started on Coreg 3.125 mg twice daily and hydralazine 50 mg twice daily Pulmonary # Acute hypoxic respiratory failure # Influenza B+ Secondary to CHF exacerbation, fluid overload, suspicion of pneumonia Well score 1.5, bilateral venous Doppler negative Plan: -BiPAP discontinued, will restart as needed -Continue vancomycin/Zosyn (07/11- -Follow MRSA nasal screen -Continue Tamiflu, renally adjusted (07/11- Gastrointestinal #Congestive hepatopathy #Transaminitis #Hyperbilirubinemia #History of hep C Elevated LFTs possibly due to venous congestion No right upper quadrant tenderness Plan: -Ordered liver ultrasound -Follow LFTs in a.m. Renal/Genitourinary #Acute kidney injury #Hypervolemic hyponatremia Secondary to cardiorenal syndrome vs renal vs prerenal Plan: -Continue IV diuresis -Strict GABRIELLE -Monitor urine output #Hyperphosphatemia -Monitor phosphate in a.m. #Hyperkalemia, resolved #Hypermagnesemia, resolved #High anion gap metabolic acidosis, uncompensated with respiratory acidosis, resolved #Normal anion gap metabolic acidosis #Lactic acidosis, resolved Endocrine Elevated TSH, normal free T4 Hematology #Coagulopathy, elevated PT, INR, D-dimer #Thrombocytopenia Monitor PT/INR in a.m., patient on heparin drip #Leukocytosis #Normocytic normochromic anemia Follow CBC in a.m., leukocytosis possibly reactive Infectious Disease #Chronic osteomyelitis #? Pneumonia Patient has lactic acidosis, ESR 34, CRP 45 Started on IV vancomycin and Zosyn (07/11- Integumentary #Right inguinal hernia Hernia noted on right inguinal area, no redness/tenderness or suspicion of incarceration DVT prophylaxis: Heparin GTT GI prophylaxis: IV Protonix Diet: N.p.o. Lines: Peripheral IV Code status: Full code Case discussed with Attending Dr. Degroot and Dr. Desir PGY3. Leilani Rojas PGY1 Disclaimer: This note was dictated by speech recognition. Minor errors in manager presentation may be present due to voice recognition software.
[2024-07-12] MEDS: PANTOPRAZOLE INJ 40 MG VIAL IVP (09:35)
[2024-07-12] MEDS: OSELTAMIVIR 30 MG CAPSULE PO ×2 (09:36→20:54)
[2024-07-12] MEDS: ASPIRIN EC 81 MG TABEC PO (09:36)
--- NOTE | 2024-07-12 09:37 | EKG_ITS ---
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: TASHIA : 1960 Requested By: Jose Desir Order Number: [id number] Reading MD: Jose Desir Measurements Intervals [place] Rate: 77 P: 55 OR: 235 QRS: -65 QRSD: 125 T: 56 QT: 447 QTc: 507 Interpretive Statements SINUS RHYTHM WITH FIRST DEGREE AV BLOCK WITH OCCASIONAL SUPRAVENTRICULAR PREMATURE COMPLEXES POSSIBLE LEFT ATRIAL ENLARGEMENT LEFT ANTERIOR FASCICULAR BLOCK LATERAL MYOCARDIAL INFARCTION , OF INDETERMINATE AGE INFERIOR MYOCARDIAL INFARCTION , OF INDETERMINATE AGE WITH POSTERIOR EXTENSION Compared to ECG 07/06/2024 23:00:58 Left anterior fascicular block now present Myocardial infarct finding now present Ventricular premature complex(es) no longer present /store/S0/[id number].pdf
[2024-07-12] MEDS: BUMETANIDE INJ 0.25 MG/ML VIAL 4 ML 1 MG IVP (10:01)
[2024-07-12] MEDS: hydrALAZINE HCL 25 MG TABLET 50 MG PO (10:01)
--- NOTE | 2024-07-12 10:07 | XR_ITS ---
Examination: Abdomen sonogram, Limited Date and time of exam: July 04, 2024 1238 hours INDICATIONS: Elevated transaminase liver function tests on laboratory examination today Technique: Real-time hutchinson scale transabdominal sonographic images of the upper abdomen obtained. Findings: Multiple gallstones Gallbladder sludge Gallbladder wall 0.2 cm Common bile duct 0.6 cm Pancreatic head 3.0 cm Liver 14.5 cm fatty infiltration no focal liver lesions Normal hepatopedal portal venous flow Patent IVC IMPRESSION: Cholelithiasis, negative for cholecystitis Fatty liver
--- NOTE | 2024-07-12 10:18 | PC.CM ---
Addendum entered by Sushila Leach RN 07/12/24 19:01: Please follow up with radiology tomorrow to see if they are going to have Echo available. Addendum entered by Sushila Leach RN 07/12/24 18:52: Patient was declined by [facility], [facility], [facility], and [facility] due to capacity. I contacted [facility] and I initiated a transfer. [facility] called me back and states they are at capacity, but we can call back tomorrow and fax over information. Addendum entered by Sushila Leach RN 07/12/24 15:31: I called [facility] and initiated a transfer. I called for a CD to be made and I updated packet. Addendum entered by Sushila Leach RN 07/12/24 14:28: Scarlet with [facility] called me back and she states they are at capacity at this time with their three facilites in [place], and [facility] [place]. She states we can follow up again after 4pm after they have their bed meeding. Addendum entered by Sushila Leach RN 07/12/24 12:52: 1110 Scarlet from [facility] called me back and states they are at capacity at [facility]. I asked Scarlet if they could check with their other facilities including [facility]. Addendum entered by Sushila Leach RN 07/12/24 12:50: 1045 [facility] called me back and they declined patient due to capacity. I reached out to [facility] and I initiated a transfer. Original Note: I received a call from Dr. Degroot to follow up on transfer request. I let her know I would reach out to other facilities today. Dr. Degroot states she will downgrade patien to telemetry. I contacted [facility] and and initiated a transfer. [facility] declined stating they have no beds.
[2024-07-12 10:35] LABS: Base Excess 1 (-3-3); HCO3 25 mEq/L (20-26); Inspired O2, VO2 Liters 1 L/min; O2 Saturation 94 % (91-98); PCO2 39 mmHg (32.0-48.0); PO2 69 mmHg (83-108); pH, Arterial 7.42 (7.35-7.45)
[2024-07-12 10:43] LABS: Allen Test Performed/OK; Puncture Site Right Radial
--- NOTE | 2024-07-12 11:17 | ESPR_ITS ---
Documentation for date of: 07/12/24 Subjective Subjective Interval history: This is a 64-year-old male who presents to the ER with lower extremity pain. The patient presents frequently to the hospital for multiple complaints. Today he was in triage with b/l LE pain and then developed worsening SOB and brought to the back. Pt himself is a poor historian and unable to elicit much detail. Apparently he was seen in the ER 5 days ago for retrosternal chest pain, worsening lower extremity edema and shortness of breath. At that point in time labs were taken and he was found to be near baseline. He was treated and returned home. Today labs were checked in the ER and on arrival he was noted to have potassium of 6.9 and anion gap of 20 a creatinine of 2.9 as well as a troponin of 4.2. His LFTs were elevated and his BNP appears to be chronically elevated in the 2000 range. An ABG was obtained and he was noted to be acidotic with a pH 7.15. There was concern for his shortness of breath and the ICU was consulted for evaluation of acute hypoxic respiratory failure and possible need for intubation. The patient was evaluated and seen in the ER and was felt to be appropriate for BiPAP at that time. In the ED he was given 2 A of bicarb for acidosis. The ICU team also gave an amp of calcium additional amps of D50 and insulin for his hyperkalemia. 07/12- overnight pt has had an improvement in his BP along with a good diuresis, his resp status has improved and no longer requires bipap, LA has resolved, overall much improved from yesterday Critical Care Note Critical care time (min.): 43 Exam Vital Signs Temp Pulse Resp BP Pulse Ox O2 Del Method O2 Flow Rate 96.9 F 74 13 129/83 93 L BiPAP 15 07/12/24 08:02 07/12/24 10:01 07/12/24 10:01 07/12/24 10:01 07/12/24 10:01 07/12/24 08:02 07/11/24 11:01 FiO2 50 07/12/24 08:02 Narrative Exam Gen- NAD, AAOx3, nl body habitus, dissheveled and unkempt HEENT- NC/AT, mucosa hydrated, sclera anicteric, Chest- scattered expiratory wheeze with few scattered crackles at base, HRRR, no increase in WOB Abd- s/nt/bs+ Ext- edema improving L>R, pulses palp, feet still cool to touch however better than yesterday, no clubbing, moves all 4, heberden nodules Physical Exam Completion Physical Exam Complete?: Yes Objective - Academic Records Specialist Labs 07/13/24 04:44 07/13/24 04:44 Labs: Laboratory Results - last 24 hr 07/11/24 07/11/24 07/11/24 10:59 11:45 14:29 WBC 9.6 RBC 4.22 L Hgb 11.6 L Hct 36.4 L MCV 86 MCH 27.5 MCHC 31.9 RDW Std Deviation 57.1 H Plt Count 94 L Neut % (Auto) 81 H Lymph % (Auto) 4 L [place]ama % (Auto) 15 H Eos % (Auto) 0 Baso % (Auto) 0 Neut # (Auto) 7.8 H Lymph # (Auto) 0.3 L [place] # (Auto) 1.4 H Eos # (Auto) 0.0 Baso # (Auto) 0.0 Immature Gran # (Auto) 0.04 H Absolute Nucleated RBC 0.09 H Immature Gran % 0 Nucleated RBC % 1 H ESR 34 H PT INR APTT Puncture Site ABG pH ABG pCO2 ABG pO2 ABG HCO3 ABG O2 Saturation ABG Base Excess Oxygen Liter Flow FiO2 Sodium 133 L Potassium 5.0 D Chloride 98 Carbon Dioxide 19.2 L Anion Gap 16 BUN 66 H Creatinine 2.7 H Estim Creat Clear Calc 29.9 L eGFR 26 L BUN/Creatinine Ratio 24 H Glucose 72 L Calculated Osmolality 284 Lactic Acid 8.7 H* 3.5 H Calcium 8.1 L Corrected Calcium 8.1 L Phosphorus Magnesium Total Bilirubin 2.2 H D AST 764 H* ALT 284 H Alkaline Phosphatase 138 H Troponin I 6.733 H* D C-Reactive Prot, Quant 4.5 H Total Protein 7.6 Albumin 4.3 Globulin 3.3 Albumin/Globulin Ratio 1.3 Triglycerides Cholesterol LDL Cholesterol, Calc HDL Cholesterol Cholesterol/HDL Ratio Procalcitonin 3.63 H Free T4 1.48 Ur Collection Type Catheter Urine Color Yellow Urine Clarity Turbid A Urine pH 5.5 Ur Specific [place] 1.019 Urine Protein 1+ A Urine Glucose (UA) Negative Urine Ketones Negative Urine Blood 3+ A Urine Nitrite Negative Urine Bilirubin Negative Urine Urobilinogen (Auto) Negative Ur Leukocyte Esterase Negative Urine RBC 1 Urine WBC 6 H Ur Squamous Epith Cells 1 Amorphous Crystals Present A Urine Bacteria Rare Hyaline Casts < 1 07/11/24 07/11/24 07/11/24 14:38 15:42 17:32 WBC RBC Hgb Hct MCV MCH MCHC RDW Std Deviation Plt Count Neut % (Auto) Lymph % (Auto) [place] % (Auto) Eos % (Auto) Baso % (Auto) Neut # (Auto) Lymph # (Auto) [place] # (Auto) Eos # (Auto) Baso # (Auto) Immature Gran # (Auto) Absolute Nucleated RBC Immature Gran % Nucleated RBC % ESR PT INR APTT Puncture Site Right Radial ABG pH 7.28 L D ABG pCO2 38 ABG pO2 83 D ABG HCO3 18 L ABG O2 Saturation 95 ABG Base Excess -8 L Oxygen Liter Flow FiO2 50 Sodium Potassium Chloride Carbon Dioxide Anion Gap BUN Creatinine Estim Creat Clear Calc eGFR BUN/Creatinine Ratio Glucose Calculated Osmolality Lactic Acid 1.7 Calcium Corrected Calcium Phosphorus Magnesium Total Bilirubin AST ALT Alkaline Phosphatase Troponin I 7.412 H* D C-Reactive Prot, Quant Total Protein Albumin Globulin Albumin/Globulin Ratio Triglycerides Cholesterol LDL Cholesterol, Calc HDL Cholesterol Cholesterol/HDL Ratio Procalcitonin Free T4 Ur Collection Type Urine Color Urine Clarity Urine pH Ur Specific [place] Urine Protein Urine Glucose (UA) Urine Ketones Urine Blood Urine Nitrite Urine Bilirubin Urine Urobilinogen (Auto) Ur Leukocyte Esterase Urine RBC Urine WBC Ur Squamous Epith Cells Amorphous Crystals Urine Bacteria Hyaline Casts 07/11/24 07/11/24 07/12/24 21:48 22:34 04:42 WBC 7.6 RBC 4.46 L Hgb 12.4 L Hct 37.6 L MCV 84 MCH 27.8 MCHC 33.0 RDW Std Deviation 54.9 H Plt Count 86 L Neut % (Auto) 84 H Lymph % (Auto) 3 L [place] % (Auto) 12 Eos % (Auto) 0 Baso % (Auto) 0 Neut # (Auto) 6.4 Lymph # (Auto) 0.3 L [place] # (Auto) 0.9 H Eos # (Auto) 0.0 Baso # (Auto) 0.0 Immature Gran # (Auto) 0.01 H Absolute Nucleated RBC 0.04 H Immature Gran % 0 Nucleated RBC % 1 H ESR PT 18.3 H INR 1.7 H APTT 71.2 H D 56.2 H D Puncture Site ABG pH ABG pCO2 ABG pO2 ABG HCO3 ABG O2 Saturation ABG Base Excess Oxygen Liter Flow FiO2 Sodium 133 L Potassium 4.9 Chloride 95 L Carbon Dioxide 25.3 Anion Gap 13 BUN 63 H Creatinine 2.5 H Estim Creat Clear Calc 32.3 L eGFR 28 L BUN/Creatinine Ratio 25 H Glucose 66 L Calculated Osmolality 282 Lactic Acid Calcium 8.2 L Corrected Calcium 8.3 L Phosphorus 6.2 H Magnesium 2.1 Total Bilirubin 2.2 H AST 1152 H* ALT 409 H Alkaline Phosphatase 125 H Troponin I 10.336 H* D 10.469 H* C-Reactive Prot, Quant Total Protein 7.0 Albumin 3.9 Globulin 3.1 Albumin/Globulin Ratio 1.3 Triglycerides 38 Cholesterol 117 L LDL Cholesterol, Calc 72 HDL Cholesterol 37 L Cholesterol/HDL Ratio 3.2 L Procalcitonin Free T4 Ur Collection Type Urine Color Urine Clarity Urine pH Ur Specific [place] Urine Protein Urine Glucose (UA) Urine Ketones Urine Blood Urine Nitrite Urine Bilirubin Urine Urobilinogen (Auto) Ur Leukocyte Esterase Urine RBC Urine WBC Ur Squamous Epith Cells Amorphous Crystals Urine Bacteria Hyaline Casts 07/12/24 10:25 WBC RBC Hgb Hct MCV MCH MCHC RDW Std Deviation Plt Count Neut % (Auto) Lymph % (Auto) [place] % (Auto) Eos % (Auto) Baso % (Auto) Neut # (Auto) Lymph # (Auto) [place] # (Auto) Eos # (Auto) Baso # (Auto) Immature Gran # (Auto) Absolute Nucleated RBC Immature Gran % Nucleated RBC % ESR PT INR APTT Puncture Site Right Radial ABG pH 7.42 D ABG pCO2 39 ABG pO2 69 L ABG HCO3 25 ABG O2 Saturation 94 ABG Base Excess 1 Oxygen Liter Flow 1 FiO2 Sodium Potassium Chloride Carbon Dioxide Anion Gap BUN Creatinine Estim Creat Clear Calc eGFR BUN/Creatinine Ratio Glucose Calculated Osmolality Lactic Acid Calcium Corrected Calcium Phosphorus Magnesium Total Bilirubin AST ALT Alkaline Phosphatase Troponin I C-Reactive Prot, Quant Total Protein Albumin Globulin Albumin/Globulin Ratio Triglycerides Cholesterol LDL Cholesterol, Calc HDL Cholesterol Cholesterol/HDL Ratio Procalcitonin Free T4 Ur Collection Type Urine Color Urine Clarity Urine pH Ur Specific [place] Urine Protein Urine Glucose (UA) Urine Ketones Urine Blood Urine Nitrite Urine Bilirubin Urine Urobilinogen (Auto) Ur Leukocyte Esterase Urine RBC Urine WBC Ur Squamous Epith Cells Amorphous Crystals Urine Bacteria Hyaline Casts Assessment & Plan Additional Assessment Additional Assessment: In summary this is a 64yo M admitted to the ICU with acute hypoxic resp failure and severe acidosis and evidence of cardiogenic shock a/p DIRECTOR OF DIETARY Encephalopathy-secondary to patient's multiple underlying conditions, should his GCS drop below 8 we will intubate - mentation much improved today Substance abuse-history of methamphetamines unclear when his last use was CV Troponinemia-patient's troponin is 4.2 on arrival. EKG does not show any ST elevations or new left bundle branch block, will continue to follow patient troponin, EKG and obtain an echocardiogram. Will start aspirin and heparin, ? Type 1 v type 2, cards consult. Bedside echo was done and he appears to have an EF of approximately 10%. His contractility appears to be generally decreased with no clear wall motion abnormality seen at this point in time. There was no significant pericardial effusion he does appear to have dilation of all 4 chambers. There is a hyperintense lesion that was seen in the right atrium of unclear etiology or significance. No clear LV thrombus was noted. A subcostal, parasternal long, parasternal short and apical four-chamber view were obtained. - pts trops have continued to trend upward despite overall stabilization of pts clinical condition - ? NSTEMI type 1 - cont heparin/ASA - official echo pending - seen by cards and not felt to be a candidate for cath at this point in time, it is unclear if he has had a cath at any point in the past with his systolic heart failure CHF/cardiogenic shock-patient's BNP is elevated at 2300 appears to be similar to what his level was 5 days ago on arrival. He has bilateral lower extremity pitting edema, chest x-ray shows increased vascular markings and patient had frothy white sputum on evaluation. Will require additional diuresis and follow- up with an echocardiogram. Patient's last echo in the system shows an EF of 20 to 25% with severe global hypokinesia and dilated cardiomyopathy. His lactic acid was 8.7 and his physical exam showed dusky feet which were also ice cold to touch. He does have evidence of insufficient tissue perfusion. He has been started on Bumex, he is able to maintain his pressures at this point in time. - much improved today and has had ~4-5lts out in the last 24hrs (computer system was down and not all UOP documented in computer system) - hydralazine given yesterday to decrease afterload - started on BB and hydralazine BID today - Entresto on hold till renal function improves Resp Acute hypoxic /hypercapnic respiratory failure-patient was started on BiPAP, the positive pressure should assist with pulmonary edema. His ABG indicates that he also has some degree of respiratory acidosis indicating an inability to keep up with his metabolic demands. - improved today after brisk diuresis Pulmonary edema-currently on diuresis continue to follow - good UOP and improving Renal Acidosis- resolved today Hyponatremia-patient currently has hypervolemic hyponatremia and appears to have total body volume overload - improved with diuresis Hyperkalemia-patient's potassium is 6.9 on arrival. He was given bicarb, calcium, D50 as well as insulin were ordered. He has been given Lasix and will follow-up on repeat potassium levels in 2 hours. - K within normal parameters today Acute kidney injury-current creatinine at 2.9, will place a Ragland for strict I's and O's, avoid nephrotoxins as able unclear prerenal versus intrarenal may require a renal ultrasound further evaluation - trending down today - cont to monitor GI Transaminitis-patient had labs drawn approximately 5 days ago which revealed an AST of 36 at that time today is 318. Differentials include viral, drug toxicity, ischemic or congestive. Obtain right upper quadrant ultrasound for further eval, likely due to his underlying heart failure - LFTs cont to trend up - will obtain RUQ US - does not appear to have any pain - may still be related to congestive hepatopathy and slow to improve - statin on hold Endo Hypoglycemia-patient received 2 A of D50 in the ER - allow PO intake Hypothyroid-patient's TSH is elevated with no apparent history of hypothyroidism. Free T4 is pending Heme Leukocytosis- reactive v related to underlying chronic osteo Anemia- near baseline - stable Thrombocytopenia- ? related to liver dysfunction v sepsis Coagulopathy- ? 2/2 liver dyfunction v meds History of LV thrombus for which the patient was on Eliquis unclear if patient is taking medications at home DVT proh- on heparin ID History of hepatitis C History of osteomyelitis-patient had been discharged on doxycycline for total of 6 weeks previously in the beginning of June it is unclear if patient was compliant with this regimen at home or not case d/w ICU team Labs, imaging and records reviewed Approximately 43 critical care minutes required for evaluation, exam, review, intervention, discussion formulation of plan of care for this critically ill patient at high risk for further and ongoing decompensation Provider Notation Provider Notation: Although this document has been carefully reviewed, there may still be some phonetic and other typographical errors. These errors are purely grammatical due to imperfections in the software program and should not be construed in any way to compromise the substance of the patient's medical care during this visit. Thank you for the opportunity and privilege in assisting you with this patient's care and management.
--- NOTE | 2024-07-12 11:52 | PC.CC ---
AUTOMOTIVE ELECTRICIAN HELPER conducted phone contact with patient?s sister, Svetlana Mena ; to conduct initial assessment.? Patient currently in ICU.? Patient is currently confused.? Patient?s sister reports that the patient is chronically homeless.? Patient does frequent [facility].? Patient does not utilize DME to assist with ambulation.? Patient does not require use of supplemental oxygen.? Patient is independent with completion of ADL?s.? Patient?s medical surrogate decision maker is sister, Svetlana Mena.? No listed PCP for the patient.? Will discuss with patient appointment to [facility] if confirmed that patient does not possess a PCP.? Patient does not possess any specialty providers.? Patient does not participate with dialysis.? Patient possesses a history of methamphetamine abuse.? consumer services consultant will discuss discharge needs at an appropriate future time.? No further intervention required at this time, nephrology social worker will be available to address any further concerns.? Next of Kin: Svetlana Mena D/C Plan: Pending
[2024-07-12] MEDS: AMIODARONE 150 MG IVPB 150 MG/100 ML BAG 600 MG IV (14:21)
[2024-07-12 14:57] LABS: Partial Thromboplastin Time 35.3 Seconds (22.0-36.0)
[2024-07-12 15:06] LABS: Potassium 3.9 mMol/L (3.4-5.1)
[2024-07-12 15:07] LABS: Troponin I 7.607 ng/mL (0.0-0.045)
[2024-07-12] MEDS: HEPARIN SOD INJ 5000 UNIT/ML VIAL 4000 UNIT IV (16:47)
[2024-07-12] MEDS: Heparin/D5w 25K 250 ML Ivpb 25,000 UNIT/250 ML BAG 10.342 UNIT IV (16:49)
[2024-07-12] MEDS: carVEDILOL 3.125 MG TABLET PO (16:50)
[2024-07-12] MEDS: AMIODARONE HCL 200 MG TABLET PO (17:38)
--- NOTE | 2024-07-12 17:57 | ESPR_ITS ---
<Statement entered by Ismael Diaz MD - 07/13/24 07:54> I have personally seen and examined the patient separately on the above date of service and discussed the plan of care with the resident. I reviewed the resident Dr. Oleary consultation progress note and agree with the resident findings and plan in the note above and have also edited the documentation to reflect my findings and plan. A 64-year-old male with a past medical history of severe systolic CHF with an EF of around 15 to 20% from polysubstance abuse [methamphetamine, alcohol, marijuana], biventricular failure, severe dilated cardiomyopathy, history of sustained VT in 2021 was on amiodarone but not compliant with any meds, large LV thrombus of around 2 x 2.5 cm in 2021 resolved now, recurrent hospital admissions with NSTEMI as well as acute on chronic CHF exacerbations, moderate PAH with an RVSP be of around 50-60 mmHg, moderate valvular heart disease with moderate MR and AI and TR, history of chronic left foot osteomyelitis, severe PAD noted on the CTA, hep C, polysubstance abuse, CKD stage III, DVT, inguinal hernia repair s/p repair in 2021 hepatitis C, hypertension, hyperlipidemia, noncompliance with medications as well as doctor visits, multiple hospitalizations signs out recurrently AMA prior to completion of treatment presented to the emergency department for further evaluation of shortness of breath as well as bilateral lower extremity pain. In the emergency department initial set of vitals showed blood pressure of 126/78 mmHg, heart rate of 76/min saturations were 96% on room air. Initial VBG showed pH of 7.15 with pCO2 of 29 as well as pO2 of 50, bicarb of 10 and saturation of 72%, WBC is 11 and Hb of 12, sodium of 127, potassium of 6.9 BUN of 59 creatinine of 2.9 glucose of 52, AST ALT was 318 and 142, initial troponin was elevated at 4.2 proBNP was 2325 elevated from before and TSH was 17, procalcitonin was elevated to 3.6. TSH and free T4 normal at 1.4. D-dimer was elevated at 3040. Chest x-ray showed possible superimposed pneumonia. Patient was admitted to the ICU because of acute hypoxic respiratory failure and was placed on BiPAP and patient was given 2 Amp of bicarb and was treated for hyperkalemia with insulin and D50 and cardiology now consulted for the rising troponins. Assessment and plan: 1. Acute hypoxic respiratory failure in the setting of acute on chronic CHF exacerbation and possible superimposed pneumonia versus flu. 2. Acute on chronic severe systolic congestive heart failure with biventricular failure with an LVEF of 15 to 20% and RV dysfunction 3. Nonischemic severe dilated cardiomyopathy in the setting of chronic severe polysubstance abuse including methamphetamine. Last use 3 days ago prior to admission 4. Acute on chronic kidney disease stage III mostly secondary to cardiorenal syndrome 5. Congestive hepatopathy with elevated liver function tests secondary to the biventricular failure versus hep C related 6. Lactic acidosis in the setting of sepsis as well as severe CHF exacerbation 7. Active flu infection-influenza B 8. History of chronic osteomyelitis of the left foot with severe PAD noncompliant with treatment 9. History of sustained VT in 2021 was on amiodarone but not taking it recently 10. Large LV thrombus of 2 x 2.5 cm in 2021 resolved on last echo in May 2024 11. Moderate PAH with RVSP of around 50 to 60 mmHg 12. Valvular heart disease with moderate MR, AI and TR 13. Severe PAD noted on CTA in 2021 14. Polysubstance abuse with methamphetamine alcohol marijuana and last admission patient was positive for fentanyl as well as benzos 15. Hepatitis C 16. Initial hypertension 17. History of DVT 18. Noncompliance with medications as well as doctor visits Patient presentation is consistent with acute on chronic CHF exacerbation with severe biventricular failure and an LVEF of 15 to 20% also RV dysfunction as noted above. Severe dilated cardiomyopathy nonischemic in the setting of severe drug abuse. Patient is fluid overload on examination NT-proBNP greater than 2300. Acute chronic kidney injury is mostly secondary to cardiorenal syndrome and also elevated LFTs mostly secondary from congestive status versus hep C. Patient does have acute hypoxic respiratory failure superimposed in the setting of positive flu test are influenza B along with some superimposed pneumonia. Patient continues to take methamphetamine and even took 3 days prior to admission which is contributing his worsening heart failure. Patient is hemodynamically stable and not on any kind of pressors at the present and his elevated lactic acid is could be in the setting of the severe heart failure along with active infection and sepsis. Recommend to aggressively diurese the patient with Bumex 2 mg IV twice daily which we started today. Strict input output, daily weights and 2 g sodium diet. Check daily labs and kidney functions along with. Patient is fluid overloaded with at least 20 L of fluid on board. Recent echocardiogram from May 2024 has been reviewed the repeat echocardiogram has been ordered by the primary team is pending. As as noted above patient did have recurrent admissions here in the recent past and March, April, May 2024 as well as June 2024 and had admissions even at [facility] in June 2024. Had multiple admissions even in 2021 and 2022. severe systolic CHF with an EF of around 15 to 20% from polysubstance abuse [methamphetamine, alcohol, marijuana], biventricular failure, severe dilated cardiomyopathy, history of sustained VT in 2021 was on amiodarone but not compliant with any meds, large LV thrombus of around 2 x 2.5 cm in 2021 resolved now, recurrent hospital admissions with NSTEMI as well as acute on chronic CHF exacerbations, moderate PAH with an RVSP be of around 50-60 mmHg, moderate valvular heart disease with moderate MR and AI and TR, history of chronic left foot osteomyelitis, severe PAD noted on the CTA, hep C, polysubstance abuse, CKD stage III, DVT, inguinal hernia repair s/p repair in 2021 hepatitis C, hypertension, hyperlipidemia, noncompliance with medications as well as doctor visits, multiple hospitalizations signs out recurrently AMA prior to completion of treatment. Regarding his elevated troponin. Troponins continue to to increase up to 7.0. Even during previous admissions patient had significant troponin elevation up to 5.0. Mostly NSTEMI type II in the setting of supply/demand mismatch with severe biventricular failure and dilated cardiomyopathy. Methamphetamine abuse patient still have elevated troponins secondary to direct toxicity to the cardiac myocytes causing eventual myocardial necrosis and myocarditis. Patient was recently admitted a week ago at [facility] with similar presentation with elevated troponins as well as CHF exacerbation patient did have a nuclear stress test performed at that time which did not show any evidence of active ischemia even though showed severely reduced ejection fraction at 14% and the left ventricular end-diastolic volume is elevated at 376 mL and end-systolic volume was 345 mL. There was some apical thinning but no clear evidence of any reversible ischemia. Patient was diagnosed with nonischemic cardiomyopathy and no cardiac cath was performed during that admission. Patient again signed out AMA 2 days after it and got readmitted here after a few days further episodes of substance abuse. Recommend aggressive medical treatment for the NSTEMI type II given the recent negative stress test. Recommend aspirin for now. Statin held due to in the elevated LFTs and beta-augustine held to have blood pressure room for the diuresis. 07/12/2024: Patient is diuresed very well with Bumex 2 mg IV twice daily and and he is not requiring BiPAP anymore and is only on oxygen via nasal cannula. He is -5 L in the last 24 hours and continue to do aggressive diuresis as he is at least 20 L positive prior to the admission. His BUN/creatinine today are slightly improved at 63 and 2.5. Patient kidney function initially versus with aggressive diuresis in the setting of cardiorenal syndrome and eventually continue to improve. Continue to monitor renal function closely along with electrolytes potassium greater than 4 and magnesium greater than 2.0 at all times. Recommend primary team to start amiodarone IV and oral given his risk of VT given his severe cardiomyopathy. Primary team did a bedside echocardiogram and apparently patient has questionable right atrial hypodense lesion and will follow-up official echocardiogram which will be done tomorrow. Troponins have been downtrending and patient has no chest pain or chest pressure and EKG does not show any acute ST-T changes at the present point of time. Discussed above with ICU team including the attending in detail. Patient was seen by me in 2021 and 2022 regular follow-ups with [facility] which is followed up only a few times and never followed up again. He was extensively sent during those admissions to stop all kinds of substance abuse including in meth and smoking or alcohol abuse to be any candidate of any kind of destination therapy including ICD or LVAD or heart transplant but it appears that patient never stopped his drug abuse. he did not even complete his complete treatment for his previous osteomyelitis. Patient had sustained VT in 2021 and was placed on amiodarone which he is not taking and recommend to restart amiodarone at the present moment and continue to monitor in [facility] on the EKG and continue to monitor telemetry. Keep potassium greater than 4 magnesium greater than 2.0. Further treatment of influenza as well as sepsis as per the primary team. Patient appears to have abandoned or has been abandoned by his family and is homeless at the present moment. Involve group social worker as well as case management. Unfortunately patient continues to sign out AMA during that admission. Patient condition critical and overall prognosis is very poor. Recommend to continue aggressive medical treatment at this present point of time and discuss the goals of care with the patient or any family. There is a high probability of sudden, clinically significant or life threatening deterioration in the patient condition which required the highest level of physician preparedness to intervene urgently. I have personally spent 65 minutes of critical care time, exclusive of time spent on any procedures, in evaluation and management of this critically ill patient. Management of rest of the medical conditions as per primary team and other consultants. Thank you for the consult and allowing me to participate in the care of the patient. Cardiology will continue to follow. Ismael Diaz M.D. Interventional Cardiology Documentation for date of: 07/12/24 Subjective Subjective Interval history: 07/12/2024: Pt examined at bedside today. He reports that he is doing well and is asking for something to eat. It was discussed with him that he has left AMA in the past and we encouraged him not to leave AMA this time in order for us to fully work him up. He is not experiencing any chest pain, or palpitations at this time. He denies having SOB and is off biPAP at this time as well. His BUN/Cr is 63 and 2.5, potassium is 4.9 magnesium 2.1, phosphorus 6.2, hemoglobin 4.4, white count 7.6. He was able to put out 4.5 negative liter. Pt is continuing diuresis with bumex 1 mg BID. Pt does have hx of sustained ventricular tachycardia in 2021. When patient was being examined there was some possible PVCs seen on telemetry. Recommend patient to start on Amio as he was initially prescribed 2021 but did not continue taking that medicine. Exam Vital Signs Temp Pulse Resp BP Pulse Ox O2 Del Method O2 Flow Rate 97.3 F 90 13 116/85 H 95 Nasal Cannula 1 07/12/24 12:00 07/12/24 17:38 07/12/24 17:00 07/12/24 17:38 07/12/24 17:00 07/12/24 16:01 07/12/24 16:01 FiO2 50 07/12/24 08:02 Narrative Exam General: AAOx3, in mild distress, disheveled and unkempt man with chest tattoos, HEENT: Conjunctiva clear, poor dentention Cardiovascular: S1, S2, radial pulses +2 bilat, RRR Pulmonary: Not on biPAP some crackles heard GI: Slight tenderness to palpitation of abdomen, no guarding, rigidity, rebound tenderness or distension, some bowel sounds heard : Inguinal hernia appreciated, non-reducible, R side Extremities: +2 pitting edema in lower extremities bilaterally, venous stasis present bilat, extremities a bit cold to touch Neuro: AAOx3, no focal motor or sensory deficits in the UE or LE bilat Objective Labs 07/12/24 04:42 07/12/24 13:46 Labs: Laboratory Results - last 24 hr 07/11/24 07/11/24 07/12/24 21:48 22:34 04:42 WBC 7.6 RBC 4.46 L Hgb 12.4 L Hct 37.6 L MCV 84 MCH 27.8 MCHC 33.0 RDW Std Deviation 54.9 H Plt Count 86 L Neut % (Auto) 84 H Lymph % (Auto) 3 L Tompkins % (Auto) 12 Eos % (Auto) 0 Baso % (Auto) 0 Neut # (Auto) 6.4 Lymph # (Auto) 0.3 L Tompkins # (Auto) 0.9 H Eos # (Auto) 0.0 Baso # (Auto) 0.0 Immature Gran # (Auto) 0.01 H Absolute Nucleated RBC 0.04 H Immature Gran % 0 Nucleated RBC % 1 H PT 18.3 H INR 1.7 H APTT 71.2 H D 56.2 H D Puncture Site ABG pH ABG pCO2 ABG pO2 ABG HCO3 ABG O2 Saturation ABG Base Excess Oxygen Liter Flow Sodium 133 L Potassium 4.9 Chloride 95 L Carbon Dioxide 25.3 Anion Gap 13 BUN 63 H Creatinine 2.5 H Estim Creat Clear Calc 32.3 L eGFR 28 L BUN/Creatinine Ratio 25 H Glucose 66 L Calculated Osmolality 282 Calcium 8.2 L Corrected Calcium 8.3 L Phosphorus 6.2 H Magnesium 2.1 Total Bilirubin 2.2 H AST 1152 H* ALT 409 H Alkaline Phosphatase 125 H Troponin I 10.336 H* D 10.469 H* Total Protein 7.0 Albumin 3.9 Globulin 3.1 Albumin/Globulin Ratio 1.3 Triglycerides 38 Cholesterol 117 L LDL Cholesterol, Calc 72 HDL Cholesterol 37 L Cholesterol/HDL Ratio 3.2 L 07/12/24 07/12/24 10:25 13:46 WBC RBC Hgb Hct MCV MCH MCHC RDW Std Deviation Plt Count Neut % (Auto) Lymph % (Auto) Tompkins % (Auto) Eos % (Auto) Baso % (Auto) Neut # (Auto) Lymph # (Auto) Tompkins # (Auto) Eos # (Auto) Baso # (Auto) Immature Gran # (Auto) Absolute Nucleated RBC Immature Gran % Nucleated RBC % PT INR APTT 35.3 D Puncture Site Right Radial ABG pH 7.42 D ABG pCO2 39 ABG pO2 69 L ABG HCO3 25 ABG O2 Saturation 94 ABG Base Excess 1 Oxygen Liter Flow 1 Sodium Potassium 3.9 D Chloride Carbon Dioxide Anion Gap BUN Creatinine Estim Creat Clear Calc eGFR BUN/Creatinine Ratio Glucose Calculated Osmolality Calcium Corrected Calcium Phosphorus Magnesium Total Bilirubin AST ALT Alkaline Phosphatase Troponin I 7.607 H* D Total Protein Albumin Globulin Albumin/Globulin Ratio Triglycerides Cholesterol LDL Cholesterol, Calc HDL Cholesterol Cholesterol/HDL Ratio ABG Interpretation ABG results: 07/11/24 07/11/24 07/11/24 10:01 10:30 14:38 ABG pH 7.15 L* 7.15 L* 7.28 L D ABG pCO2 29 L 30 L 38 ABG pO2 50 L* 47 L* 83 D ABG HCO3 10 L 11 L 18 L ABG O2 Saturation 72 L 68 L 95 ABG Base Excess -17 L -17 L -8 L 07/12/24 10:25 ABG pH 7.42 D ABG pCO2 39 ABG pO2 69 L ABG HCO3 25 ABG O2 Saturation 94 ABG Base Excess 1 Quality Measures Quality Measures none Assessment & Plan Assessment Current Active Medications: Generic Name Dose Route Start Last Admin Trade Name Erika PRN Reason Stop Dose Admin Acetaminophen 650 mg 07/11/24 11:19 Acetaminophen 325 Mg Tablet PO 08/10/24 11:18 Q6H PRN Fever >101.5 Amiodarone HCl 200 mg 07/13/24 09:00 Amiodarone Hcl 200 Mg Tablet PO 08/12/24 08:59 BID JANETTE Aspirin 81 mg 07/12/24 09:00 07/12/24 09:36 Aspirin Ec 81 Mg Tabec PO 08/11/24 08:59 81 mg QDAY JANETTE Administration Bumetanide 1 mg 07/12/24 09:45 07/12/24 10:01 Bumetanide Inj 0.25 Mg/Ml Vial 4 Ml IVP 08/11/24 09:44 1 mg BID JANETTE Administration Carvedilol 3.125 mg 07/12/24 17:30 07/12/24 16:50 Carvedilol 3.125 Mg Tablet PO 08/11/24 17:29 3.125 mg BIDWM JANETTE Administration Dextrose 25 ml 07/11/24 11:15 07/11/24 18:45 Dextrose 50%-Water Inj 50 Ml Syringe IV 08/10/24 11:14 25 ml Q15MIN PRN Administration BG 50-70 responsive npo pt Dextrose 50 ml 07/11/24 11:15 07/11/24 13:29 Dextrose 50%-Water Inj 50 Ml Syringe IV 08/10/24 11:14 50 ml Q15MIN PRN Administration BG <50 OR BG <70 & pt unresponsive Glucagon 1 mg 07/11/24 11:15 Glucagon Inj 1 Mg Vial IM Q15MIN PRN BG <70, and no IV access Hydralazine HCl 50 mg 07/12/24 09:45 07/12/24 10:01 Hydralazine Hcl 25 Mg Tablet PO 08/11/24 09:44 50 mg BID JANETTE Administration Heparin Sodium/Dextrose 25,000 unit in 250 mls @ 10.342 mls/hr 07/11/24 15:30 07/12/24 16:49 Heparin In D5w Ivpb IV 07/25/24 15:29 12 units/kg/hr .Q24H JANETTE 10.342 mls/hr Administration Protocol 12 UNITS/KG/HR Piperacillin/Tazobactam/Dextrose 50 mls @ 12.5 mls/hr 07/11/24 22:00 07/12/24 14:21 Zosyn IV 07/18/24 21:59 12.5 mls/hr Q8HR JANETTE Administration Vancomycin/Sodium Chloride 200 mls @ 120 mls/hr 07/12/24 22:00 Vancomycin/Ns 1 Gm Ivpb IV 07/19/24 21:59 Q24H JANETTE Oseltamivir Phosphate 30 mg 07/12/24 21:00 Oseltamivir 30 Mg Capsule PO 07/17/24 20:59 BID JANETTE Pantoprazole Sodium 40 mg 07/11/24 15:45 07/12/24 09:35 Pantoprazole Inj 40 Mg Vial IVP 08/10/24 15:44 40 mg QDAY JANETTE Administration Pharmacy Consult 1 each 07/11/24 16:15 Vancomycin Pharmacy To Dose 1 Each Each IV 08/10/24 16:14 QDAY PRN PROTOCOL Sennosides 1 tab 07/11/24 11:19 Senna Tablet PO 08/10/24 11:18 QDAY PRN constipation Protocol Plan Assessment 64-year-old male with a past medical history of HFrEF with ejection fraction of 20-25%, methamphetamine abuse, 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 #Cardiorenal syndrome #NSTEMI type I vs type II #Acute on chronic exacerbation of HFrEF (20 to 25%, May 2024) #Non ischemic dilated cardiomyopathy, with wall motion abnormalities #Hx of HTN #Hx of sustained ventricular tachycardia Patient has had multiple admissions for similar complaints He recently left [place] from [facility] for similar symptoms in which she had a cardiac stress test which is unremarkable and also echo which showed similar findings to previous echocardiograms with EF of ~15% ICU did bedside echo which showed bedside IVC shows 2.6 cm, significantly dilated Last echo from May 2024 shows EF 20 to 25%, dilated cardiomyopathy, global hypokinesis, biatrial dilation Troponin 4.2 ->6.7 ->7.4 -> 10.3 -> 10.4 -> ~7, no need to trend Patient is unlikely to be a cath candidate at this time but will continue with current management Nuclear Stress test in [facility] showed no evidence of stress induced ischemia, however severely decreased LVEF and increased EDV and global hypokinesis, LVEF 364 mL Creatinine 2.5 compared to 2.9 yesterday Pt will need aggressive diuresis at this point Plan: ?Recommending starting amio, concern for fluid overload, will send to oral rather than Amio drip at this time ?Patient is continued to be diuresed with Bumex 1 mg twice daily ?Strict intake and output ?Daily weight ?Fluid restriction 1500 cc ?Continue with aspirin ?Continue with heparin drip started by ICU team ?Echo ?Keep magnesium and potassium above 2 and 4 respectively #Acute on chronic hypoxic respiratory failure #Influenza B+ #Congestive hepatopathy #Transaminitis #Hyperbilirubinemia #History of hep C #Acute kidney injury #Hypervolemic hyponatremia #Hyperkalemia #Hypermagnesemia #High anion gap metabolic acidosis, uncompensated with respiratory acidosis #Lactic acidosis #Coagulopathy, elevated PT, INR, D-dimer #Thrombocytopenia #Leukocytosis #Normocytic normochromic anemia #Chronic osteomyelitis #Right inguinal hernia #Polysubstance abuse Management above handled by ICU team Patient seen and care discussed with my attending physician, Dr. Joe Duron, PGY-1
[2024-07-12] MEDS: AMIODARONE 360 MG IVPB 360 MG/200 ML BAG 33.333 MG IV (18:55)
[2024-07-12 19:16] LABS: Anion Gap 12 (7-16); BUN/Creatinine Ratio 23 Ratio (12-20); Blood Urea Nitrogen 56 mg/dL (9-23); Calcium 7.9 mg/dL (8.3-10.6); Carbon Dioxide 25.4 mMol/L (20.0-31.0); Chloride 93 mMol/L (98-107); Creatinine (Component) 2.4 mg/dL (0.6-1.3); Estimated Creatinine Clearance 33.6 mL/min (>60); Glucose 120 mg/dL (74-106); Magnesium 1.8 mg/dL (1.6-2.6); Osmolality,Calculated 277 (275-295); Potassium 3.3 mMol/L (3.4-5.1); Sodium 130 mMol/L (136-145); eGFR 30 See Note
--- NOTE | 2024-07-12 22:11 | PC.NURSE ---
Patient refusing medications after education and doctor ted notified of refusal and patient wanting to leave AMA. After talking to dr jean patient hesitant about leaving AMA and still refusing medications after offering.
--- NOTE | 2024-07-12 23:20 | PC.NURSE ---
LAB ATTEMPTED TWICE TO DRAW LABS ON PT AT 2305. THEY WERE ONLY ABLE TO GET ENOUGH BLOOD FOR THE PTT (HEPARIN GTT PROTOCAL). PT REFUSED TO LET THEM ATTEMPT A 3RD TIME FOR THE BMP (OR LET ANYONE ELSE ATTEMPT AGAIN). SINCE THE BEGINNING OF THE SHIFT, THE PT HAS BEEN REFUSING MOST OF HIS MEDICATIONS. DR LEXIS TATUM.
[2024-07-13] VITALS (37 sets, daily range): BP systolic 95–128; BP diastolic 64–89; PULSE 57–120; RESP 8–98; TEMP 36.1–36.6; O2SAT 84–99
[2024-07-13] MEDS: AMIODARONE 360 MG IVPB 360 MG/200 ML BAG 16.667 MG IV ×2 (00:58→12:52)
[2024-07-13 01:33] LABS: Partial Thromboplastin Time 76.6 Seconds (22.0-36.0)
[2024-07-13 06:25] LABS: Basophils % (Auto) 0 % (0-2.5); Eosinophils # (Auto) 0.1 Thou/mm3 (0.0-0.5); Eosinophils % (Auto) 1 % (0-10); Hemoglobin 12.6 g/dL (13.5-16.0); Immature Granulocytes % (Auto) 0 % (0-0); Immature Granulocytes Auto 0.03 Thou/mm3 (0.00-0.00); Lymphocytes # (Auto) 0.2 Thou/mm3 (1.0-4.8); Lymphocytes % (Auto) 3 % (10-50); Mean Corpuscular HGB Conc 34.1 g/dl (31.0-37.0); Mean Corpuscular Hemoglobin 27.6 pg (25.0-35.0); Mean Corpuscular Volume 81 fL (80-100); Monocytes % (Auto) 12 % (0-12); Neutrophils # (Auto) 6.6 Thou/mm3 (1.8-7.7); Neutrophils % (Auto) 84 % (37-80); Nucleated Red Blood Cell # 0.03 Thou/mm3 (0.00-0.00); Nucleated Red Blood Cell % 0 /100 WBC (0); RDW Standard Deviation 51.8 fL (35.1-43.9); Red Blood Count 4.57 Miln/mm3 (4.50-5.90); White Blood Count 7.9 Thou/mm3 (3.8-10.6)
[2024-07-13 06:27] LABS: Platelet Count 60 Thou/mm3 (140-440)
[2024-07-13] MEDS: PIPER/TAZO 3.375 GM 50 ML IV (06:28)
[2024-07-13 06:37] LABS: Alanine Aminotransferase 444 U/L (10-49); Albumin, Serum 3.4 gm/dL (3.4-4.8); Albumin/Globulin Ratio 1.1 (1.2-2.2); Alkaline Phosphatase 115 U/L (46-116); Anion Gap 10 (7-16); Aspartate Amino Transferase 807 U/L (0-34); BUN/Creatinine Ratio 22 Ratio (12-20); Bilirubin,Total 2.2 mg/dL (0.3-1.2); Blood Urea Nitrogen 50 mg/dL (9-23); Calcium (Corrected) 8.5 mg/dL (8.5-10.1); Carbon Dioxide 27.6 mMol/L (20.0-31.0); Chloride 97 mMol/L (98-107); Creatinine (Component) 2.3 mg/dL (0.6-1.3); Estimated Creatinine Clearance 28.9 mL/min (>60); Glucose 96 mg/dL (74-106); Magnesium 1.7 mg/dL (1.6-2.6); Osmolality,Calculated 283 (275-295); Phosphorous 3.3 mg/dL (2.4-5.1); Potassium 3.3 mMol/L (3.4-5.1); Sodium 135 mMol/L (136-145); Total Protein 6.4 gm/dL (5.7-8.2); eGFR 31 See Note
[2024-07-13 06:50] LABS: INR 1.5 (0.9-1.3); Partial Thromboplastin Time 76.9 Seconds (22.0-36.0); Prothrombin Time 16.1 Seconds (9.0-12.2)
[2024-07-13 06:55] LABS: Slide Review Platelets confirmed
[2024-07-13 07:18] LABS: Hepatitis A Antibody IgM Non Reactive (Non React); Hepatitis B Core Antibody IgM Non Reactive (Non React); Hepatitis B Surface Antigen Non Reactive (Non React); Hepatitis C Antibody Reactive (Non React)
[2024-07-13] MEDS: carVEDILOL 3.125 MG TABLET PO ×2 (07:53→17:35)
--- NOTE | 2024-07-13 08:37 | PC.NURSE ---
on 07/12/2024 1649- heprin rate increased to 16 units/kg/hr, unable to fix rate on MAR, on 07/13/2024 at 0830, ptt at 76.9, rate not changed
[2024-07-13] MEDS: BUMETANIDE INJ 0.25 MG/ML VIAL 4 ML 1 MG IVP (08:45)
[2024-07-13] MEDS: OSELTAMIVIR 30 MG CAPSULE PO ×2 (08:47→21:10)
[2024-07-13] MEDS: AMIODARONE HCL 200 MG TABLET PO ×2 (08:47→21:10)
[2024-07-13] MEDS: ASPIRIN EC 81 MG TABEC PO (08:48)
[2024-07-13] MEDS: PANTOPRAZOLE INJ 40 MG VIAL IVP (08:48)
--- NOTE | 2024-07-13 09:34 | XR_ITS ---
Examination: AP chest single view Technique one AP portable upright chest single view Exam date and time: July 13, 2024 0952 hours Comparison July 11, 2024 INDICATIONS: Shortness of breath this week. FINDINGS: There remains mild CHF Moderate enlargement left ventricle Prominent vascular congestion with perihilar basilar edema Significant pneumonia left base with air bronchograms Mild pneumonia right upper lobe Prominent osteopenia IMPRESSION: Mild CHF Mild pneumonia right upper lobe Significant pneumonia left base
--- NOTE | 2024-07-13 09:35 | XR_ITS ---
Examination: Foot bilateral, 6 views Technique: AP, oblique, lateral views each foot total 6 views Date and time of exam: July 13, 2024 at 0952 hours INDICATIONS: Redness swelling and pain involving the foot this week FINDINGS: Prominent hallux valgus bunion deformity right foot Small erosion 2 mm distal right first metatarsal Soft tissue vascular calcification No fracture Prominent erosion distal left first metatarsal and base proximal phalanx left first digit No fracture IMPRESSION: Small erosions distal first metatarsal Significant osteomyelitis distal left first metatarsal and base proximal phalanx first digit Consider bilateral MRI feet without contrast follow-up
--- NOTE | 2024-07-13 09:56 | PD.INTPROG ---
Documentation for date of: 07/13/24 Subjective Subjective Interval history: This is a 64-year-old male who presents to the ER with lower extremity pain. The patient presents frequently to the hospital for multiple complaints. Today he was in triage with b/l LE pain and then developed worsening SOB and brought to the back. Pt himself is a poor historian and unable to elicit much detail. Apparently he was seen in the ER 5 days ago for retrosternal chest pain, worsening lower extremity edema and shortness of breath. At that point in time labs were taken and he was found to be near baseline. He was treated and returned home. Today labs were checked in the ER and on arrival he was noted to have potassium of 6.9 and anion gap of 20 a creatinine of 2.9 as well as a troponin of 4.2. His LFTs were elevated and his BNP appears to be chronically elevated in the 2000 range. An ABG was obtained and he was noted to be acidotic with a pH 7.15. There was concern for his shortness of breath and the ICU was consulted for evaluation of acute hypoxic respiratory failure and possible need for intubation. The patient was evaluated and seen in the ER and was felt to be appropriate for BiPAP at that time. In the ED he was given 2 A of bicarb for acidosis. The ICU team also gave an amp of calcium additional amps of D50 and insulin for his hyperkalemia. 07/12- overnight pt has had an improvement in his BP along with a good diuresis, his resp status has improved and no longer requires bipap, LA has resolved, overall much improved from yesterday 07/13- overnight pt was refusing meds, K was 3.3 and pt had PVCs however he refused his K replacement, currently afebrile, net neg over the last 24hrs Critical Care Note Critical care time (min.): 0 Exam Vital Signs Temp Pulse Resp BP Pulse Ox O2 Del Method O2 Flow Rate 97.7 F 67 15 96/73 91 L Room Air 3 07/13/24 08:01 07/13/24 09:01 07/13/24 09:01 07/13/24 09:01 07/13/24 09:01 07/13/24 08:01 07/12/24 20:00 FiO2 50 07/12/24 08:02 Narrative Exam Gen- NAD, AAOx3, nl body habitus HEENT- NC/AT, mucosa hydrated, sclera anicteric, EOMI Chest- crackles at b/l bases, few scattered expiratory wheeze, HRRR, no increase in WOB Abd- s/nt/bs+ Ext- improving edema in b/l LE but R still appears larger then left, pulses palp, feet cool to touch, no mottling, moves all 4 drips heparin amio Physical Exam Completion Physical Exam Complete?: Yes Objective - Data [employer]er Labs 07/13/24 04:44 07/13/24 04:44 Labs: Laboratory Results - last 24 hr 07/12/24 07/12/24 07/12/24 10:25 13:46 18:47 WBC RBC Hgb Hct MCV MCH MCHC RDW Std Deviation Plt Count Neut % (Auto) Lymph % (Auto) [place] % (Auto) Eos % (Auto) Baso % (Auto) Neut # (Auto) Lymph # (Auto) [place] # (Auto) Eos # (Auto) Baso # (Auto) Immature Gran # (Auto) Absolute Nucleated RBC Immature Gran % Nucleated RBC % PT INR APTT 35.3 D Puncture Site Right Radial ABG pH 7.42 D ABG pCO2 39 ABG pO2 69 L ABG HCO3 25 ABG O2 Saturation 94 ABG Base Excess 1 Oxygen Liter Flow 1 Sodium 130 L Potassium 3.9 D 3.3 L D Chloride 93 L Carbon Dioxide 25.4 Anion Gap 12 BUN 56 H Creatinine 2.4 H Estim Creat Clear Calc 33.6 L eGFR 30 L BUN/Creatinine Ratio 23 H Glucose 120 H D Calculated Osmolality 277 Calcium 7.9 L Corrected Calcium Phosphorus Magnesium 1.8 Total Bilirubin AST ALT Alkaline Phosphatase Troponin I 7.607 H* D Total Protein Albumin Globulin Albumin/Globulin Ratio Hepatitis A IgM Ab Hep Bs Antigen Hep B Core IgM Ab Hepatitis C Antibody [facility] [place] Test Result 07/12/24 07/13/24 23:09 04:44 WBC 7.9 RBC 4.57 Hgb 12.6 L Hct 37.0 L MCV 81 MCH 27.6 MCHC 34.1 RDW Std Deviation 51.8 H Plt Count 60 L D Neut % (Auto) 84 H Lymph % (Auto) 3 L [place] % (Auto) 12 Eos % (Auto) 1 Baso % (Auto) 0 Neut # (Auto) 6.6 Lymph # (Auto) 0.2 L [place] # (Auto) 1.0 H Eos # (Auto) 0.1 Baso # (Auto) 0.0 Immature Gran # (Auto) 0.03 H Absolute Nucleated RBC 0.03 H Immature Gran % 0 Nucleated RBC % 0 PT 16.1 H INR 1.5 H APTT 76.6 H D 76.9 H Puncture Site ABG pH ABG pCO2 ABG pO2 ABG HCO3 ABG O2 Saturation ABG Base Excess Oxygen Liter Flow Sodium 135 L Potassium 3.3 L Chloride 97 L Carbon Dioxide 27.6 Anion Gap 10 BUN 50 H Creatinine 2.3 H Estim Creat Clear Calc 28.9 L eGFR 31 L BUN/Creatinine Ratio 22 H Glucose 96 Calculated Osmolality 283 Calcium 8.0 L Corrected Calcium 8.5 Phosphorus 3.3 Magnesium 1.7 Total Bilirubin 2.2 H AST 807 H* ALT 444 H Alkaline Phosphatase 115 Troponin I Total Protein 6.4 Albumin 3.4 D Globulin 3.0 Albumin/Globulin Ratio 1.1 L Hepatitis A IgM Ab Non Reactive Hep Bs Antigen Non Reactive Hep B Core IgM Ab Non Reactive Hepatitis C Antibody Reactive A Misc Test Result Platelets confirmed Assessment & Plan Additional Assessment Additional Assessment: In summary this is a 64yo M admitted to the ICU with acute hypoxic resp failure and severe acidosis and evidence of cardiogenic shock 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 Encephalopathy- resolved Substance abuse-history of methamphetamines unclear when his last use was CV Troponinemia- now trending down - type I v II - echo still pending - on ASA/heparin - pt refusing interventions and therapy - given his lack of cooperation he is a poor candidate for interventions CHF/cardiogenic shock- improved - on BB and hydralazine BID today - Entresto on hold till renal function improves - echo pending - mult PVCs and a h/o NSVT therefore started on amio - d/w cards Resp Acute hypoxic /hypercapnic respiratory failure- improved Pulmonary edema-currently on diuresis continue to follow - good UOP and improving Renal Acidosis- resolved today Hyponatremia-patient currently has hypervolemic hyponatremia and appears to have total body volume overload - improved with diuresis HypoK- replete with PO K Acute kidney injury-current creatinine at 2.9, will place a Ragland for strict I's and O's, avoid nephrotoxins as able unclear prerenal versus intrarenal may require a renal ultrasound further evaluation - trending down with slow improvement - cont to monitor - good UOP GI Transaminitis-patient had labs drawn approximately 5 days ago which revealed an AST of 36 at that time today is 318. Differentials include viral, drug toxicity, ischemic or congestive - LFTs now trending down - may still be related to congestive hepatopathy and slow to improve - statin on hold - RUQ US shows fatty liver Endo Hypoglycemia-resolved Hypothyroid-patient's TSH is elevated with no apparent history of hypothyroidism. Free T4 is pending Heme Leukocytosis- reactive v related to underlying chronic osteo Anemia- near baseline - stable Thrombocytopenia- ? related to liver dysfunction v sepsis - small drop again today Coagulopathy- ? 2/2 liver dyfunction v meds History of LV thrombus for which the patient was on Eliquis unclear if patient is taking medications at home DVT proh- on heparin ID History of hepatitis C History of osteomyelitis-patient had been discharged on doxycycline for total of 6 weeks previously in the beginning of June it is unclear if patient was compliant with this regimen at home or not - cx are NTD - afebrile - no WBC# - not felt to be actively infected at this time and any derangement in procal may be related to underlying osteo - stop vanc/zosyn and start doxy - pt unlikely to cont with tx after DC case d/w ICU team d/w pt and cardiology today stable for downgrade to tele Labs, imaging and records reviewed Approximately 38 minutes required for evaluation, exam, review, intervention, discussion formulation of plan of care for this critically ill patient at high risk for further and ongoing decompensation Provider Notation Provider Notation: Although this document has been carefully reviewed, there may still be some phonetic and other typographical errors. These errors are purely grammatical due to imperfections in the software program and should not be construed in any way to compromise the substance of the patient's medical care during this visit. Thank you for the opportunity and privilege in assisting you with this patient's care and management.
[2024-07-13] MEDS: POTASSIUM CHLORIDE 10% 20 MEQ/15 ML UDC 40 MEQ GT (10:04)
[2024-07-13] MEDS: Magnesium Sulfate 4 GM Ivpb 4 GM/50 ML BAG IV ×2 (10:04→19:08)
--- NOTE | 2024-07-13 10:43 | ESPR_ITS ---
<Statement entered by Jose Desir DO - 07/13/24 17:37> Senior attestation: Patient was examined and case was reviewed with team including attending physician. Note reviewed, I agree with most of its contents and agree with the patient's care. Overnight patient considered AMA however decided to stay but refused medications. Today will continue amiodarone drip and replete potassium/magnesium. Bilateral foot xrays completed, concerning for osteomyelitis, will start doxycycline and discontinue vancomycin/zosyn. Troponin noted to have peaked, will stop trending. Cardiology team following, patient stable for downgrade to medical floors for 07/14. Jose Desir DO PGY-3 Documentation for date of: 07/13/24 Subjective Subjective Interval history: Mr. Sheikh is a 64-year-old male with past medical history of HFrEF EF 20 to 25%, May 2024, dilated cardiomyopathy, hypertension, hyperlipidemia, chronic left foot osteomyelitis, hepatitis C, cholelithiasis, methamphetamine use and homelessness who was BIBA to [facility] emergency department on 07/11 with chief complaint of shortness of breath and bilateral lower extremity pain. Patient is alert and oriented x 2, significantly short of breath unable to provide much details about his illness, complains of full body pain. Patient was seen in the ED about 5 days ago for retrosternal chest pain, worsening lower extremity edema and shortness of breath. Per patient's nurse, patient was extensively short of breath ever since he was brought in from the triage area, tripoding was noted by nurse. In the ED patient's ABG was noted to have pH of 7.15, pCO2 29 and pO2 50, patient was noted to be hypoxic on pulse ox, otherwise labs were significant for potassium 6.9, anion gap of 20 and also did have elevated troponin of 4.2. Patient was placed on BiPAP and decision was made to admit patient to ICU 07/12/2024: Patient seen and examined at bedside, overnight patient's blood sugar was low, was given 7up, did have an episode of emesis, was off of BiPAP for some duration, was eventually restarted on BiPAP. Otherwise at bedside today patient is alert and oriented x 3, able to hold conversation, reports significant improvement in shortness of breath and patient had urine output hopeful about 4 to 4.5 L in the last 24 hours. Patient will be transition off of BiPAP to nasal cannula, will continue diuresis with Bumex 1 mg IV twice daily, will continue to monitor urine output closely. Patient's troponin continue to trend up, latest troponin 10.469, patient started on Coreg 3.125 twice daily and hydralazine 50 mg twice daily, will repeat EKG, continue to trend troponin and continue aspirin and heparin drip. Patient has pending MRSA nasal screen, will continue Vanco/Zosyn and Tamiflu. Will obtain liver ultrasound due to transaminitis. Will monitor renal function and urine output closely 07/13/2024: Seen and examined at bedside, overnight patient tried to leave AMA, eventually decided to stay, refused medications last night, patient had good urine output overnight, patient net -2.5 L approximately in the last 24 hours. Patient at bedside alert and oriented x 3, was started on amiodarone drip due to history of sustained ventricular tachycardia, potassium and magnesium replaced, goal to keep potassium more than 4, magnesium more than 2. Renal function has improved, liver function test shows improvement, bilateral foot x-rays show concern of osteomyelitis, radiology recommends bilateral foot MRI. Patient was recently admitted at the facility, ID recommended IV doxycycline for further management of osteomyelitis we will discontinue Vanco and Zosyn, chest x-ray shows mild pneumonia, clinically low suspicion of pneumonia. Will continue Tamiflu for influenza. Will continue to monitor patient closely. Patient will be downgraded to hospitalist service starting in a.m. Exam Vital Signs Temp Pulse Resp BP Pulse Ox O2 Del Method O2 Flow Rate 97.7 F 59 L 13 112/73 96 Room Air 3 07/13/24 08:01 07/13/24 10:00 07/13/24 10:00 07/13/24 10:00 07/13/24 10:00 07/13/24 08:01 07/12/24 20:00 FiO2 50 07/12/24 08:02 Narrative Exam Physical Exam General: 64-year-old male, alert and oriented x 3. HEENT: Normocephalic, atraumatic, mucous membranes moist, pupils bilaterally reactive. Heart: Regular rate and rhythm, no murmurs. Lungs: Crackles heard bilaterally, improved. Abdomen: Soft, non-distended, non-tender, positive bowel sounds. Neurologic: GCS 15, following commands, alert and oriented x 3 Extremities: 1+ bilateral lower extremity edema, right leg> swollen than left leg, pitting edema, callus bilaterally feet, feet cool. Objective Labs 07/13/24 04:44 07/13/24 04:44 Labs: Laboratory Results - last 24 hr 07/12/24 07/12/24 07/12/24 10:25 13:46 18:47 WBC RBC Hgb Hct MCV MCH MCHC RDW Std Deviation Plt Count Neut % (Auto) Lymph % (Auto) [place] % (Auto) Eos % (Auto) Baso % (Auto) Neut # (Auto) Lymph # (Auto) [place] # (Auto) Eos # (Auto) Baso # (Auto) Immature Gran # (Auto) Absolute Nucleated RBC Immature Gran % Nucleated RBC % PT INR APTT 35.3 D Puncture Site Right Radial ABG pH 7.42 D ABG pCO2 39 ABG pO2 69 L ABG HCO3 25 ABG O2 Saturation 94 ABG Base Excess 1 Oxygen Liter Flow 1 Sodium 130 L Potassium 3.9 D 3.3 L D Chloride 93 L Carbon Dioxide 25.4 Anion Gap 12 BUN 56 H Creatinine 2.4 H Estim Creat Clear Calc 33.6 L eGFR 30 L BUN/Creatinine Ratio 23 H Glucose 120 H D Calculated Osmolality 277 Calcium 7.9 L Corrected Calcium Phosphorus Magnesium 1.8 Total Bilirubin AST ALT Alkaline Phosphatase Troponin I 7.607 H* D Total Protein Albumin Globulin Albumin/Globulin Ratio Hepatitis A IgM Ab Hep Bs Antigen Hep B Core IgM Ab Hepatitis C Antibody [facility] [place] Test Result 07/12/24 07/13/24 23:09 04:44 WBC 7.9 RBC 4.57 Hgb 12.6 L Hct 37.0 L MCV 81 MCH 27.6 MCHC 34.1 RDW Std Deviation 51.8 H Plt Count 60 L D Neut % (Auto) 84 H Lymph % (Auto) 3 L [place] % (Auto) 12 Eos % (Auto) 1 Baso % (Auto) 0 Neut # (Auto) 6.6 Lymph # (Auto) 0.2 L [place] # (Auto) 1.0 H Eos # (Auto) 0.1 Baso # (Auto) 0.0 Immature Gran # (Auto) 0.03 H Absolute Nucleated RBC 0.03 H Immature Gran % 0 Nucleated RBC % 0 PT 16.1 H INR 1.5 H APTT 76.6 H D 76.9 H Puncture Site ABG pH ABG pCO2 ABG pO2 ABG HCO3 ABG O2 Saturation ABG Base Excess Oxygen Liter Flow Sodium 135 L Potassium 3.3 L Chloride 97 L Carbon Dioxide 27.6 Anion Gap 10 BUN 50 H Creatinine 2.3 H Estim Creat Clear Calc 28.9 L eGFR 31 L BUN/Creatinine Ratio 22 H Glucose 96 Calculated Osmolality 283 Calcium 8.0 L Corrected Calcium 8.5 Phosphorus 3.3 Magnesium 1.7 Total Bilirubin 2.2 H AST 807 H* ALT 444 H Alkaline Phosphatase 115 Troponin I Total Protein 6.4 Albumin 3.4 D Globulin 3.0 Albumin/Globulin Ratio 1.1 L Hepatitis A IgM Ab Non Reactive Hep Bs Antigen Non Reactive Hep B Core IgM Ab Non Reactive Hepatitis C Antibody Reactive A Misc Test Result Platelets confirmed ABG Interpretation ABG results: 07/11/24 07/11/24 07/11/24 10:01 10:30 14:38 ABG pH 7.15 L* 7.15 L* 7.28 L D ABG pCO2 29 L 30 L 38 ABG pO2 50 L* 47 L* 83 D ABG HCO3 10 L 11 L 18 L ABG O2 Saturation 72 L 68 L 95 ABG Base Excess -17 L -17 L -8 L 07/12/24 10:25 ABG pH 7.42 D ABG pCO2 39 ABG pO2 69 L ABG HCO3 25 ABG O2 Saturation 94 ABG Base Excess 1 Quality Measures Quality Measures none Assessment & Plan Assessment Current Active Medications: Generic Name Dose Route Start Last Admin Trade Name Freq PRN Reason Stop Dose Admin Acetaminophen 650 mg 07/11/24 11:19 Acetaminophen 325 Mg Tablet PO 08/10/24 11:18 Q6H PRN Fever >101.5 Amiodarone HCl 200 mg 07/13/24 09:00 07/13/24 08:47 Amiodarone Hcl 200 Mg Tablet PO 08/12/24 08:59 200 mg BID JANETTE Administration Aspirin 81 mg 07/12/24 09:00 07/13/24 08:48 Aspirin Ec 81 Mg Tabec PO 08/11/24 08:59 81 mg QDAY JANETTE Administration Bumetanide 1 mg 07/14/24 09:00 Bumetanide Inj 0.25 Mg/Ml Vial 4 Ml IVP 08/13/24 08:59 QDAY JANETTE Carvedilol 3.125 mg 07/12/24 17:30 07/13/24 07:53 Carvedilol 3.125 Mg Tablet PO 08/11/24 17:29 3.125 mg BIDWM JANETTE Administration Dextrose 25 ml 07/11/24 11:15 07/11/24 18:45 Dextrose 50%-Water Inj 50 Ml Syringe IV 08/10/24 11:14 25 ml Q15MIN PRN Administration BG 50-70 responsive npo pt Dextrose 50 ml 07/11/24 11:15 07/11/24 13:29 Dextrose 50%-Water Inj 50 Ml Syringe IV 08/10/24 11:14 50 ml Q15MIN PRN Administration BG <50 OR BG <70 & pt unresponsive Glucagon 1 mg 07/11/24 11:15 Glucagon Inj 1 Mg Vial IM Q15MIN PRN BG <70, and no IV access Hydralazine HCl 50 mg 07/12/24 09:45 07/13/24 08:58 Hydralazine Hcl 25 Mg Tablet PO 08/11/24 09:44 Not Given BID JANETTE Heparin Sodium/Dextrose 25,000 unit in 250 mls @ 10.342 mls/hr 07/11/24 15:30 07/13/24 08:30 Heparin In D5w Ivpb IV 07/25/24 15:29 16 units/kg/hr .Q24H JANETTE 13.789 mls/hr Titration Protocol 12 UNITS/KG/HR Piperacillin/Tazobactam/Dextrose 50 mls @ 12.5 mls/hr 07/11/24 22:00 07/13/24 06:28 Zosyn IV 07/18/24 21:59 12.5 mls/hr Q8HR JANETTE Administration Vancomycin/Sodium Chloride 200 mls @ 120 mls/hr 07/12/24 22:00 07/12/24 22:24 Vancomycin/Ns 1 Gm Ivpb IV 07/19/24 21:59 Not Given Q24H JANETTE Amiodarone HCl/Dextrose 360 mg in 200 mls @ 16.667 mls/hr 07/13/24 00:42 07/13/24 00:58 Nexterone Ivpb IV 07/14/24 00:41 16.667 mls/hr .Q12H JANETTE Administration Magnesium Sulfate 4 gm in 50 mls @ 12.5 mls/hr 07/13/24 09:34 07/13/24 10:04 Magnesium Sulfate Ivpb IV 07/13/24 13:33 12.5 mls/hr X1 ONE Administration Mupirocin 0 gm 07/13/24 21:00 Mupirocin Oint 2% 15 Gm Tube TOP 07/20/24 20:59 BID JANETTE Oseltamivir Phosphate 30 mg 07/12/24 21:00 07/13/24 08:47 Oseltamivir 30 Mg Capsule PO 07/17/24 20:59 30 mg BID JANETTE Administration Pharmacy Consult 1 each 07/11/24 16:15 Vancomycin Pharmacy To Dose 1 Each Each IV 08/10/24 16:14 QDAY PRN PROTOCOL Sennosides 1 tab 07/11/24 11:19 Senna Tablet PO 08/10/24 11:18 QDAY PRN constipation Protocol Plan Assessment and Plan: Mr. Sheikh is a 64-year-old male with past medical history of HFrEF EF 20 to 25%, May 2024, dilated cardiomyopathy, hypertension, hyperlipidemia, chronic left foot osteomyelitis, hepatitis C, cholelithiasis, methamphetamine use and homelessness who was BIBA to [facility] emergency department on 07/11 with chief complaint of shortness of breath and bilateral lower extremity pain. Patient upgraded to ICU for high suspicion of cardiogenic shock, NSTEMI type I and CHF exacerbation. Neurological Alert and oriented x 3, GCS 15 #History of methamphetamine use -Consider social services coordinator consult Cardiology #CHF exacerbation #HFrEF (20 to 25%, May 2024) #Dilated cardiomyopathy, global hypokinesis Patient has bilateral lower extremity edema, 2+, bedside IVC shows 2.6 cm, significantly dilated Last echo from May 2024 shows EF 20 to 25%, dilated cardiomyopathy, global hypokinesis, biatrial dilation Bedside cardiac echo shows hypokinesis, ?Thrombus noted in right atrium 07/12-patient had about 4.5 L of urine output overnight 07/13-patient had about 4 L urine output, net -2.5 L approximately Plan: -Bumex 1 mg IV once daily -Coreg 3.125 twice daily -Hydralazine 50 mg twice daily -Will hold starting patient on Entresto/BERNADETTE/ARB's in setting of GEOVANY -Strict intake and output -Daily weight -Fluid restriction 1500 cc -Consulted cardiology, appreciate recommendations # NSTEMI type I versus type II Patient's troponin 4.209-> 6.733-> 7.412->10.336->10.469, bedside echo shows global hypokinesis, high suspicion of ACS. On admission EKG shows evidence of ?ST depression Zhanna score in admission 157 points Was given loading dose aspirin Plan: -Continue heparin ACS protocol -Continue aspirin 81 mg daily -Ordered repeat EKG today -Consult cardiology, appreciate recommendations -Ordered echocardiogram, transferring patient for echo. -Follow troponin every 6 hour -Consulted cardiology, appreciate recommendations # History of sustained ventricular tachycardia # Frequent PVCs Frequent PVCs noted on telemetry, brief episodes of ?asymptomatic V. tach -Patient was started on amiodarone drip (07/13- -started on oral amnio 200 twice daily -BMP every 8 hours, goal potassium more than 4, mag more than 2 # Hypertension # Hyperlipidemia Patient was given hydralazine x 1 for hypertension, monitor blood pressure Started on Coreg 3.125 mg twice daily and hydralazine 50 mg twice daily Pulmonary # Acute hypoxic respiratory failure, resolved # Influenza B+ Secondary to CHF exacerbation, fluid overload, low clinical suspicion of pneumonia Well score 1.5, bilateral venous Doppler negative Plan: -BiPAP discontinued, will restart as needed -Discontinued vancomycin/Zosyn (07/11-07/13) -Started on IV doxycycline (07/13- -MRSA nasal screen positive, patient started on mupirocin -Continue Tamiflu, renally adjusted (07/11- Gastrointestinal #Congestive hepatopathy #Transaminitis, improving #Hyperbilirubinemia #History of hep C Elevated LFTs possibly due to venous congestion No right upper quadrant tenderness Liver ultrasound showed fatty liver Plan: -Follow LFTs in a.m. Renal/Genitourinary #Acute kidney injury, improving #Hypervolemic hyponatremia # Cardiorenal syndrome Secondary to cardiorenal syndrome vs renal vs prerenal Plan: -Continue IV diuresis -Strict GABRIELLE -Monitor urine output #Hyperphosphatemia -Monitor phosphate in a.m. #Hyperkalemia, resolved #Hypermagnesemia, resolved #High anion gap metabolic acidosis, uncompensated with respiratory acidosis, resolved #Normal anion gap metabolic acidosis #Lactic acidosis, resolved Endocrine Elevated TSH, normal free T4 Hematology #Coagulopathy, elevated PT, INR, D-dimer #Thrombocytopenia Monitor PT/INR in a.m., patient on heparin drip #Leukocytosis #Normocytic normochromic anemia Follow CBC in a.m., leukocytosis possibly reactive Infectious Disease #Chronic osteomyelitis #? Pneumonia Patient has lactic acidosis, ESR 34, CRP 45 Bilateral foot x-ray suggestive of bilateral osteomyelitis -Discontinued vancomycin/Zosyn (07/11-07/13) -Started on IV doxycycline (07/13- Integumentary #Right inguinal hernia Hernia noted on right inguinal area, no redness/tenderness or suspicion of incarceration DVT prophylaxis: Heparin GTT GI prophylaxis: Not indicated Diet: Cardiac diet, fluid restriction 1500 cc Lines: Peripheral IV Code status: Full code Case discussed with Attending Dr. Degroot and Dr. Desir PGY3. Leilani Rojas PGY1 Disclaimer: This note was dictated by speech recognition. Minor errors in burring wheel operator may be present due to voice recognition software.
--- NOTE | 2024-07-13 11:45 | PD.RESEVENT ---
Documentation for date of: 07/13/24 Event Note Event Note: 64-year-old male with past medical history of HFrEF (EF 20 to 25% on May 2024), dilated cardiomyopathy, hypertension, hyperlipidemia, chronic left foot osteomyelitis, hepatitis C, cholelithiasis, substance abuse (methamphetamine), and homelessness was admitted to the ICU on 07/11/2024 due to high suspicion of cardiogenic shock, NSTEMI type I, and CHF exacerbation. Patient was diuresed, on heparin drip, and was placed on BiPAP. Cardiology was also consulted to the case. Patient at this time is off BiPAP. During diuresis in the ICU patient had total balance of -9 L approximately his troponins peaked at around 10 before downtrending. Patient has been having episodes of V. tach's with frequent PVCs, therefore it is essential to keep potassium magnesium above 4 2 respectively. Today patient was stable enough to be downgraded to the medical floors and assigned to team C. Case disclosed with Attending Dr. Shannon Johnson PGY1
--- NOTE | 2024-07-13 11:50 | PC.CM ---
1140- Received call from NICKOLAS Bustos CN in ICU, Dr. Degroot has cancelled the transfer request for this patient at this time. [facility] has been informed.
--- NOTE | 2024-07-13 12:20 | ESPR_ITS ---
<Statement entered by Ismael Diaz MD - 07/13/24 22:47> I have personally seen and examined the patient separately on the above date of service and discussed the plan of care with the resident. I reviewed the resident Dr. Oleary consultation progress note and agree with the resident findings and plan in the note above and have also edited the documentation to reflect my findings and plan. A 64-year-old male with a past medical history of severe systolic CHF with an EF of around 15 to 20% from polysubstance abuse [methamphetamine, alcohol, marijuana], biventricular failure, severe dilated cardiomyopathy, history of sustained VT in 2021 was on amiodarone but not compliant with any meds, large LV thrombus of around 2 x 2.5 cm in 2021 resolved now, recurrent hospital admissions with NSTEMI as well as acute on chronic CHF exacerbations, moderate PAH with an RVSP be of around 50-60 mmHg, moderate valvular heart disease with moderate MR and AI and TR, history of chronic left foot osteomyelitis, severe PAD noted on the CTA, hep C, polysubstance abuse, CKD stage III, DVT, inguinal hernia repair s/p repair in 2021 hepatitis C, hypertension, hyperlipidemia, noncompliance with medications as well as doctor visits, multiple hospitalizations signs out recurrently AMA prior to completion of treatment presented to the emergency department for further evaluation of shortness of breath as well as bilateral lower extremity pain. In the emergency department initial set of vitals showed blood pressure of 126/78 mmHg, heart rate of 76/min saturations were 96% on room air. Initial VBG showed pH of 7.15 with pCO2 of 29 as well as pO2 of 50, bicarb of 10 and saturation of 72%, WBC is 11 and Hb of 12, sodium of 127, potassium of 6.9 BUN of 59 creatinine of 2.9 glucose of 52, AST ALT was 318 and 142, initial troponin was elevated at 4.2 proBNP was 2325 elevated from before and TSH was 17, procalcitonin was elevated to 3.6. TSH and free T4 normal at 1.4. D-dimer was elevated at 3040. Chest x-ray showed possible superimposed pneumonia. Patient was admitted to the ICU because of acute hypoxic respiratory failure and was placed on BiPAP and patient was given 2 Amp of bicarb and was treated for hyperkalemia with insulin and D50 and cardiology now consulted for the rising troponins. Assessment and plan: 1. Acute hypoxic respiratory failure in the setting of acute on chronic CHF exacerbation and possible superimposed pneumonia versus flu. 2. Acute on chronic severe systolic congestive heart failure with biventricular failure with an LVEF of 15 to 20% and RV dysfunction 3. Nonischemic severe dilated cardiomyopathy in the setting of chronic severe polysubstance abuse including methamphetamine. Last use 3 days ago prior to admission 4. Acute on chronic kidney disease stage III mostly secondary to cardiorenal syndrome 5. Congestive hepatopathy with elevated liver function tests secondary to the biventricular failure versus hep C related 6. Lactic acidosis in the setting of sepsis as well as severe CHF exacerbation 7. Active flu infection-influenza B 8. History of chronic osteomyelitis of the left foot with severe PAD noncompliant with treatment 9. History of sustained VT in 2021 was on amiodarone but not taking it recently 10. Large LV thrombus of 2 x 2.5 cm in 2021 resolved on last echo in May 2024 11. Moderate PAH with RVSP of around 50 to 60 mmHg 12. Valvular heart disease with moderate MR, AI and TR 13. Severe PAD noted on CTA in 2021 14. Polysubstance abuse with methamphetamine alcohol marijuana and last admission patient was positive for fentanyl as well as benzos 15. Hepatitis C 16. Initial hypertension 17. History of DVT 18. Noncompliance with medications as well as doctor visits Patient presentation is consistent with acute on chronic CHF exacerbation with severe biventricular failure and an LVEF of 15 to 20% also RV dysfunction as noted above. Severe dilated cardiomyopathy nonischemic in the setting of severe drug abuse. Patient is fluid overload on examination NT-proBNP greater than 2300. Acute chronic kidney injury is mostly secondary to cardiorenal syndrome and also elevated LFTs mostly secondary from congestive status versus hep C. Patient does have acute hypoxic respiratory failure superimposed in the setting of positive flu test are influenza B along with some superimposed pneumonia. Patient continues to take methamphetamine and even took 3 days prior to admission which is contributing his worsening heart failure. Patient is hemodynamically stable and not on any kind of pressors at the present and his elevated lactic acid is could be in the setting of the severe heart failure along with active infection and sepsis. Recommend to aggressively diurese the patient with Bumex 2 mg IV twice daily which we started today. Strict input output, daily weights and 2 g sodium diet. Check daily labs and kidney functions along with. Patient is fluid overloaded with at least 20 L of fluid on board. Recent echocardiogram from May 2024 has been reviewed the repeat echocardiogram has been ordered by the primary team is pending. As as noted above patient did have recurrent admissions here in the recent past and March, April, May 2024 as well as June 2024 and had admissions even at [facility] in June 2024. Had multiple admissions even in 2021 and 2022. severe systolic CHF with an EF of around 15 to 20% from polysubstance abuse [methamphetamine, alcohol, marijuana], biventricular failure, severe dilated cardiomyopathy, history of sustained VT in 2021 was on amiodarone but not compliant with any meds, large LV thrombus of around 2 x 2.5 cm in 2021 resolved now, recurrent hospital admissions with NSTEMI as well as acute on chronic CHF exacerbations, moderate PAH with an RVSP be of around 50-60 mmHg, moderate valvular heart disease with moderate MR and AI and TR, history of chronic left foot osteomyelitis, severe PAD noted on the CTA, hep C, polysubstance abuse, CKD stage III, DVT, inguinal hernia repair s/p repair in 2021 hepatitis C, hypertension, hyperlipidemia, noncompliance with medications as well as doctor visits, multiple hospitalizations signs out recurrently AMA prior to completion of treatment. Regarding his elevated troponin. Troponins continue to to increase up to 7.0. Even during previous admissions patient had significant troponin elevation up to 5.0. Mostly NSTEMI type II in the setting of supply/demand mismatch with severe biventricular failure and dilated cardiomyopathy. Methamphetamine abuse patient still have elevated troponins secondary to direct toxicity to the cardiac myocytes causing eventual myocardial necrosis and myocarditis. Patient was recently admitted a week ago at [facility] with similar presentation with elevated troponins as well as CHF exacerbation patient did have a nuclear stress test performed at that time which did not show any evidence of active ischemia even though showed severely reduced ejection fraction at 14% and the left ventricular end-diastolic volume is elevated at 376 mL and end-systolic volume was 345 mL. There was some apical thinning but no clear evidence of any reversible ischemia. Patient was diagnosed with nonischemic cardiomyopathy and no cardiac cath was performed during that admission. Patient again signed out AMA 2 days after it and got readmitted here after a few days further episodes of substance abuse. Recommend aggressive medical treatment for the NSTEMI type II given the recent negative stress test. Recommend aspirin for now. Statin held due to in the elevated LFTs and beta-augustine held to have blood pressure room for the diuresis. 07/12/2024: Patient is diuresed very well with Bumex 2 mg IV twice daily and and he is not requiring BiPAP anymore and is only on oxygen via nasal cannula. He is -5 L in the last 24 hours and continue to do aggressive diuresis as he is at least 20 L positive prior to the admission. His BUN/creatinine today are slightly improved at 63 and 2.5. Patient kidney function initially versus with aggressive diuresis in the setting of cardiorenal syndrome and eventually continue to improve. Continue to monitor renal function closely along with electrolytes potassium greater than 4 and magnesium greater than 2.0 at all times. Recommend primary team to start amiodarone IV and oral given his risk of VT given his severe cardiomyopathy. Primary team did a bedside echocardiogram and apparently patient has questionable right atrial hypodense lesion and will follow-up official echocardiogram which will be done tomorrow. Troponins have been downtrending and patient has no chest pain or chest pressure and EKG does not show any acute ST-T changes at the present point of time. Discussed above with ICU team including the attending in detail. 07/13/2024: recommend to give additional K and mg supplements along with additional 2 mg bumex this evening. Kidney fuction continues to improve with Cr of 2.3 today.Will slowly start GDMT based on the BP. Patient was seen by me in 2021 and 2022 regular follow-ups with [facility] which is followed up only a few times and never followed up again. He was extensively sent during those admissions to stop all kinds of substance abuse including in meth and smoking or alcohol abuse to be any candidate of any kind of destination therapy including ICD or LVAD or heart transplant but it appears that patient never stopped his drug abuse. he did not even complete his complete treatment for his previous osteomyelitis. Patient had sustained VT in 2021 and was placed on amiodarone which he is not taking and recommend to restart amiodarone at the present moment and continue to monitor in [facility] on the EKG and continue to monitor telemetry. Keep potassium greater than 4 magnesium greater than 2.0. Further treatment of influenza as well as sepsis as per the primary team. Patient appears to have abandoned or has been abandoned by his family and is homeless at the present moment. Involve oncology social worker as well as case management. Unfortunately patient continues to sign out AMA during that admission. Patient condition critical and overall prognosis is very poor. Recommend to continue aggressive medical treatment at this present point of time and discuss the goals of care with the patient or any family. There is a high probability of sudden, clinically significant or life threatening deterioration in the patient condition which required the highest level of physician preparedness to intervene urgently. I have personally spent 37 minutes of critical care time, exclusive of time spent on any procedures, in evaluation and management of this critically ill patient. Management of rest of the medical conditions as per primary team and other consultants. Thank you for the consult and allowing me to participate in the care of the patient. Cardiology will continue to follow. Ismael Diaz M.D. Interventional Cardiology Documentation for date of: 07/13/24 Subjective Subjective Interval history: 07/12/2024: Pt examined at bedside today. He reports that he is doing well and is asking for something to eat. It was discussed with him that he has left AMA in the past and we encouraged him not to leave AMA this time in order for us to fully work him up. He is not experiencing any chest pain, or palpitations at this time. He denies having SOB and is off biPAP at this time as well. His BUN/Cr is 63 and 2.5, potassium is 4.9 magnesium 2.1, phosphorus 6.2, hemoglobin 4.4, white count 7.6. He was able to put out 4.5 negative liter. Pt is continuing diuresis with bumex 1 mg BID. Pt does have hx of sustained ventricular tachycardia in 2021. When patient was being examined there was some possible PVCs seen on telemetry. Recommend patient to start on Amio as he was initially prescribed 2021 but did not continue taking that medicine. 07/13/2024: Patient examined at bedside today. Patient continues to have some PVCs seen on telemetry. He was seen by bedside and reports he is doing well. Is not complaining any chest pain or shortness of breath. He does not feel like his heart is racing. He says he would like to go to sleep at this time. He will continue with diuresis Bumex 1 mg twice daily. He is currently net -2.3 L positive. He was started on Amio 200 twice daily. His BUN/creatinine 50 and 2.3, AST ALT coming down 807 and 444 respectively, T. bili 2.2, white count 10.9, hemoglobin 12.6, potassium 3.3 and magnesium 1.7, repleted by ICU team. No other complaints this time. Pt to be downgraded to floors. Exam Vital Signs Temp Pulse Resp BP Pulse Ox O2 Del Method O2 Flow Rate 97.7 F 65 16 98/74 88 L Room Air 3 07/13/24 08:01 07/13/24 11:00 07/13/24 11:00 07/13/24 11:00 07/13/24 11:00 07/13/24 08:01 07/12/24 20:00 FiO2 50 07/12/24 08:02 Narrative Exam General: AAOx3, in mild distress, disheveled and unkempt man with chest tattoos, HEENT: Conjunctiva clear, poor dentention Cardiovascular: S1, S2, radial pulses +2 bilat, RRR Pulmonary: Some crackles heard diffusely, no cough GI: Slight tenderness to palpitation of abdomen, no guarding, rigidity, rebound tenderness or distension, some bowel sounds heard : Inguinal hernia appreciated, non-reducible, R side Extremities: +2 pitting edema in lower extremities bilaterally, venous stasis present bilat, extremities a bit cold to touch Neuro: AAOx3, no focal motor or sensory deficits in the UE or LE bilat Objective Labs 07/13/24 04:44 07/13/24 13:34 Labs: Laboratory Results - last 24 hr 07/12/24 07/12/24 07/12/24 13:46 18:47 23:09 WBC RBC Hgb Hct MCV MCH MCHC RDW Std Deviation Plt Count Neut % (Auto) Lymph % (Auto) Stanton % (Auto) Eos % (Auto) Baso % (Auto) Neut # (Auto) Lymph # (Auto) Stanton # (Auto) Eos # (Auto) Baso # (Auto) Immature Gran # (Auto) Absolute Nucleated RBC Immature Gran % Nucleated RBC % PT INR APTT 35.3 D 76.6 H D Sodium 130 L Potassium 3.9 D 3.3 L D Chloride 93 L Carbon Dioxide 25.4 Anion Gap 12 BUN 56 H Creatinine 2.4 H Estim Creat Clear Calc 33.6 L eGFR 30 L BUN/Creatinine Ratio 23 H Glucose 120 H D Calculated Osmolality 277 Calcium 7.9 L Corrected Calcium Phosphorus Magnesium 1.8 Total Bilirubin AST ALT Alkaline Phosphatase Troponin I 7.607 H* D Total Protein Albumin Globulin Albumin/Globulin Ratio Hepatitis A IgM Ab Hep Bs Antigen Hep B Core IgM Ab Hepatitis C Antibody Misc Test Result 07/13/24 04:44 WBC 7.9 RBC 4.57 Hgb 12.6 L Hct 37.0 L MCV 81 MCH 27.6 MCHC 34.1 RDW Std Deviation 51.8 H Plt Count 60 L D Neut % (Auto) 84 H Lymph % (Auto) 3 L Stanton % (Auto) 12 Eos % (Auto) 1 Baso % (Auto) 0 Neut # (Auto) 6.6 Lymph # (Auto) 0.2 L Stanton # (Auto) 1.0 H Eos # (Auto) 0.1 Baso # (Auto) 0.0 Immature Gran # (Auto) 0.03 H Absolute Nucleated RBC 0.03 H Immature Gran % 0 Nucleated RBC % 0 PT 16.1 H INR 1.5 H APTT 76.9 H Sodium 135 L Potassium 3.3 L Chloride 97 L Carbon Dioxide 27.6 Anion Gap 10 BUN 50 H Creatinine 2.3 H Estim Creat Clear Calc 28.9 L eGFR 31 L BUN/Creatinine Ratio 22 H Glucose 96 Calculated Osmolality 283 Calcium 8.0 L Corrected Calcium 8.5 Phosphorus 3.3 Magnesium 1.7 Total Bilirubin 2.2 H AST 807 H* ALT 444 H Alkaline Phosphatase 115 Troponin I Total Protein 6.4 Albumin 3.4 D Globulin 3.0 Albumin/Globulin Ratio 1.1 L Hepatitis A IgM Ab Non Reactive Hep Bs Antigen Non Reactive Hep B Core IgM Ab Non Reactive Hepatitis C Antibody Reactive A Misc Test Result Platelets confirmed ABG Interpretation ABG results: 07/11/24 07/11/24 07/11/24 10:01 10:30 14:38 ABG pH 7.15 L* 7.15 L* 7.28 L D ABG pCO2 29 L 30 L 38 ABG pO2 50 L* 47 L* 83 D ABG HCO3 10 L 11 L 18 L ABG O2 Saturation 72 L 68 L 95 ABG Base Excess -17 L -17 L -8 L 07/12/24 10:25 ABG pH 7.42 D ABG pCO2 39 ABG pO2 69 L ABG HCO3 25 ABG O2 Saturation 94 ABG Base Excess 1 Quality Measures Quality Measures none Assessment & Plan Assessment Current Active Medications: Generic Name Dose Route Start Last Admin Trade Name Freq PRN Reason Stop Dose Admin Acetaminophen 650 mg 07/11/24 11:19 Acetaminophen 325 Mg Tablet PO 08/10/24 11:18 Q6H PRN Fever >101.5 Amiodarone HCl 200 mg 07/13/24 09:00 07/13/24 08:47 Amiodarone Hcl 200 Mg Tablet PO 08/12/24 08:59 200 mg BID JANETTE Administration Aspirin 81 mg 07/12/24 09:00 07/13/24 08:48 Aspirin Ec 81 Mg Tabec PO 08/11/24 08:59 81 mg QDAY JANETTE Administration Bumetanide 1 mg 07/14/24 09:00 Bumetanide Inj 0.25 Mg/Ml Vial 4 Ml IVP 08/13/24 08:59 QDAY JANETTE Carvedilol 3.125 mg 07/12/24 17:30 07/13/24 07:53 Carvedilol 3.125 Mg Tablet PO 08/11/24 17:29 3.125 mg BIDWM JANETTE Administration Dextrose 25 ml 07/11/24 11:15 07/11/24 18:45 Dextrose 50%-Water Inj 50 Ml Syringe IV 08/10/24 11:14 25 ml Q15MIN PRN Administration BG 50-70 responsive npo pt Dextrose 50 ml 07/11/24 11:15 07/11/24 13:29 Dextrose 50%-Water Inj 50 Ml Syringe IV 08/10/24 11:14 50 ml Q15MIN PRN Administration BG <50 OR BG <70 & pt unresponsive Glucagon 1 mg 07/11/24 11:15 Glucagon Inj 1 Mg Vial IM Q15MIN PRN BG <70, and no IV access Hydralazine HCl 50 mg 07/12/24 09:45 07/13/24 08:58 Hydralazine Hcl 25 Mg Tablet PO 08/11/24 09:44 Not Given BID JANETTE Heparin Sodium/Dextrose 25,000 unit in 250 mls @ 10.342 mls/hr 07/11/24 15:30 07/13/24 08:30 Heparin In D5w Ivpb IV 07/25/24 15:29 16 units/kg/hr .Q24H JANETTE 13.789 mls/hr Titration Protocol 12 UNITS/KG/HR Piperacillin/Tazobactam/Dextrose 50 mls @ 12.5 mls/hr 07/11/24 22:00 07/13/24 06:28 Zosyn IV 07/18/24 21:59 12.5 mls/hr Q8HR JANETTE Administration Vancomycin/Sodium Chloride 200 mls @ 120 mls/hr 07/12/24 22:00 07/12/24 22:24 Vancomycin/Ns 1 Gm Ivpb IV 07/19/24 21:59 Not Given Q24H JANETTE Amiodarone HCl/Dextrose 360 mg in 200 mls @ 16.667 mls/hr 07/13/24 00:42 07/13/24 00:58 Nexterone Ivpb IV 07/14/24 00:41 16.667 mls/hr .Q12H JANETTE Administration Magnesium Sulfate 4 gm in 50 mls @ 12.5 mls/hr 07/13/24 09:34 07/13/24 10:04 Magnesium Sulfate Ivpb IV 07/13/24 13:33 12.5 mls/hr X1 ONE Administration Mupirocin 0 gm 07/13/24 21:00 Mupirocin Oint 2% 15 Gm Tube TOP 07/20/24 20:59 BID JANETTE Oseltamivir Phosphate 30 mg 07/12/24 21:00 07/13/24 08:47 Oseltamivir 30 Mg Capsule PO 07/17/24 20:59 30 mg BID JANETTE Administration Pharmacy Consult 1 each 07/11/24 16:15 Vancomycin Pharmacy To Dose 1 Each Each IV 08/10/24 16:14 QDAY PRN PROTOCOL Sennosides 1 tab 07/11/24 11:19 Senna Tablet PO 08/10/24 11:18 QDAY PRN constipation Protocol Plan Assessment 64-year-old male with a past medical history of HFrEF with ejection fraction of 20-25%, methamphetamine abuse, 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 #Cardiorenal syndrome #NSTEMI type II, likely related to demand ischemia #Acute on chronic exacerbation of HFrEF (20 to 25%, May 2024) #Non ischemic dilated cardiomyopathy, with wall motion abnormalities #Hx of HTN #Hx of sustained ventricular tachycardia Patient has had multiple admissions for similar complaints He recently left AMA from [facility] for similar symptoms in which she had a cardiac stress test which is unremarkable and also echo which showed similar findings to previous echocardiograms with EF of ~15% ICU did bedside echo which showed bedside IVC shows 2.6 cm, significantly dilated Last echo from May 2024 shows EF 20 to 25%, dilated cardiomyopathy, global hypokinesis, biatrial dilation Troponin 4.2 ->6.7 ->7.4 -> 10.3 -> 10.4 -> ~7, no need to trend Patient is unlikely to be a cath candidate at this time but will continue with current management Nuclear Stress test in [facility] showed no evidence of stress induced ischemia, however severely decreased LVEF and increased EDV and global hypokinesis, LVEF 364 mL Creatinine 2.3 compared to 2.5 yesterday Net= -2.3 L today Pt will need aggressive diuresis at this point, will medically manage Plan: ?Continue with Amio 200 mg BID ?Patient is continued to be diuresed with Bumex 1 mg twice daily; will add another 2 mg Bumex IV with 4 g magnesium ?Strict intake and output ?Daily weight ?Fluid restriction 1500 cc ?Continue with aspirin ?Echo ?Keep magnesium and potassium above 2 and 4 respectively #Acute on chronic hypoxic respiratory failure #Influenza B+ #Congestive hepatopathy #Transaminitis #Hyperbilirubinemia #History of hep C #Acute kidney injury #Hypervolemic hyponatremia #Hyperkalemia #Hypermagnesemia #High anion gap metabolic acidosis, uncompensated with respiratory acidosis #Lactic acidosis #Coagulopathy, elevated PT, INR, D-dimer #Thrombocytopenia #Leukocytosis #Normocytic normochromic anemia #Chronic osteomyelitis #Right inguinal hernia #Polysubstance abuse Management above handled by ICU team Patient seen and care discussed with my attending physician, Dr. Joe Duron, PGY-1
[2024-07-13] MEDS: Heparin/D5w 25K 250 ML Ivpb 25,000 UNIT/250 ML BAG 13.789 UNIT IV (13:22)
--- NOTE | 2024-07-13 13:39 | PC.SS ---
Update: Patient to be downgraded from ICU.
[2024-07-13 14:10] LABS: Anion Gap 10 (7-16); BUN/Creatinine Ratio 21 Ratio (12-20); Blood Urea Nitrogen 46 mg/dL (9-23); Calcium 7.9 mg/dL (8.3-10.6); Chloride 96 mMol/L (98-107); Creatinine (Component) 2.2 mg/dL (0.6-1.3); Estimated Creatinine Clearance 30.2 mL/min (>60); Glucose 117 mg/dL (74-106); Osmolality,Calculated 277 (275-295); Potassium 3.4 mMol/L (3.4-5.1); Sodium 132 mMol/L (136-145); eGFR 33 See Note
--- NOTE | 2024-07-13 15:34 | PC.NURSE ---
at 1530 patient having frequent PVCs and into trigeminy HR at 99-100s from 60 previously, Dr. Desir notified
[2024-07-13] MEDS: POTASSIUM CHLORIDE 10% 20 MEQ/15 ML UDC PO (16:05)
[2024-07-13] MEDS: POTASSIUM CHLORIDE 10% 20 MEQ/15 ML UDC 40 MEQ PO (16:05)
[2024-07-13] MEDS: BUMETANIDE INJ 0.25 MG/ML VIAL 4 ML 2 MG IVP (19:08)
[2024-07-13] MEDS: hydrALAZINE HCL 25 MG TABLET 50 MG PO (21:10)
[2024-07-13] MEDS: DOXYCYCLINE INJ 100 MG in SODIUM CHLORIDE 0.9% (P) 100 ML IV (21:10)
[2024-07-13 23:27] LABS: Anion Gap 11 (7-16); BUN/Creatinine Ratio 22 Ratio (12-20); Blood Urea Nitrogen 49 mg/dL (9-23); Calcium 7.4 mg/dL (8.3-10.6); Carbon Dioxide 27.2 mMol/L (20.0-31.0); Chloride 95 mMol/L (98-107); Creatinine (Component) 2.2 mg/dL (0.6-1.3); Estimated Creatinine Clearance 30.2 mL/min (>60); Glucose 104 mg/dL (74-106); Osmolality,Calculated 279 (275-295); Potassium 3.9 mMol/L (3.4-5.1); Sodium 133 mMol/L (136-145); eGFR 33 See Note
[2024-07-14] VITALS (9 sets, daily range): BP systolic 92–138; BP diastolic 59–98; PULSE 52–79; RESP 12–98; TEMP 35.7–36.9; O2SAT 90–99; BMI 23.1
[2024-07-14 06:44] LABS: Basophils % (Auto) 1 % (0-2.5); Eosinophils # (Auto) 0.2 Thou/mm3 (0.0-0.5); Eosinophils % (Auto) 3 % (0-10); Hematocrit 35.1 % (41.0-53.0); Immature Granulocytes % (Auto) 1 % (0-0); Immature Granulocytes Auto 0.05 Thou/mm3 (0.00-0.00); Lymphocytes # (Auto) 0.8 Thou/mm3 (1.0-4.8); Lymphocytes % (Auto) 10 % (10-50); Mean Corpuscular HGB Conc 34.2 g/dl (31.0-37.0); Mean Corpuscular Hemoglobin 27.3 pg (25.0-35.0); Mean Corpuscular Volume 80 fL (80-100); Monocytes % (Auto) 13 % (0-12); Neutrophils # (Auto) 5.7 Thou/mm3 (1.8-7.7); Neutrophils % (Auto) 73 % (37-80); Nucleated Red Blood Cell # 0.03 Thou/mm3 (0.00-0.00); Nucleated Red Blood Cell % 0 /100 WBC (0); RDW Standard Deviation 51.5 fL (35.1-43.9); White Blood Count 7.8 Thou/mm3 (3.8-10.6)
[2024-07-14 07:13] LABS: INR 1.2 (0.9-1.3); Prothrombin Time 12.6 Seconds (9.0-12.2)
[2024-07-14 07:45] LABS: Alanine Aminotransferase 444 U/L (10-49); Albumin, Serum 3.1 gm/dL (3.4-4.8); Albumin/Globulin Ratio 1.1 (1.2-2.2); Alkaline Phosphatase 114 U/L (46-116); Anion Gap 11 (7-16); Aspartate Amino Transferase 668 U/L (0-34); BUN/Creatinine Ratio 27 Ratio (12-20); Bilirubin,Total 1.7 mg/dL (0.3-1.2); Blood Urea Nitrogen 53 mg/dL (9-23); Calcium 7.5 mg/dL (8.3-10.6); Calcium (Corrected) 8.2 mg/dL (8.5-10.1); Carbon Dioxide 26.8 mMol/L (20.0-31.0); Chloride 93 mMol/L (98-107); Estimated Creatinine Clearance 36.6 mL/min (>60); Globulin 2.9 gm/dL (2.3-3.5); Glucose 96 mg/dL (74-106); Magnesium 2.2 mg/dL (1.6-2.6); Osmolality,Calculated 277 (275-295); Phosphorous 2.9 mg/dL (2.4-5.1); Potassium 3.3 mMol/L (3.4-5.1); Sodium 131 mMol/L (136-145); eGFR 37 See Note
--- NOTE | 2024-07-14 08:14 | PC.NURSE ---
Clarified with MD Perdomo of patient's current MAR medications Coreg, Amiodarone, Hydralazine, and Bumex. Pt's VS HR: 58 BP: 109/72. Per MD Perdomo, ok to hold those medications.
--- NOTE | 2024-07-14 08:19 | PD.RESPRO ---
Documentation for date of: 07/14/24 Subjective Subjective Interval history: 07/12/2024: Pt examined at bedside today. He reports that he is doing well and is asking for something to eat. It was discussed with him that he has left AMA in the past and we encouraged him not to leave AMA this time in order for us to fully work him up. He is not experiencing any chest pain, or palpitations at this time. He denies having SOB and is off biPAP at this time as well. His BUN/Cr is 63 and 2.5, potassium is 4.9 magnesium 2.1, phosphorus 6.2, hemoglobin 4.4, white count 7.6. He was able to put out 4.5 negative liter. Pt is continuing diuresis with bumex 1 mg BID. Pt does have hx of sustained ventricular tachycardia in 2021. When patient was being examined there was some possible PVCs seen on telemetry. Recommend patient to start on Amio as he was initially prescribed 2021 but did not continue taking that medicine. 07/13/2024: Patient examined at bedside today. Patient continues to have some PVCs seen on telemetry. He was seen by bedside and reports he is doing well. Is not complaining any chest pain or shortness of breath. He does not feel like his heart is racing. He says he would like to go to sleep at this time. He will continue with diuresis Bumex 1 mg twice daily. He is currently net -2.3 L positive. He was started on Amio 200 twice daily. His BUN/creatinine 50 and 2.3, AST ALT coming down 807 and 444 respectively, T. bili 2.2, white count 10.9, hemoglobin 12.6, potassium 3.3 and magnesium 1.7, repleted by ICU team. No other complaints this time. Pt to be downgraded to floors. 07/14/2024: Pt examined at bedisde today. Pt continues to have some PVCs, however, rate in the 50s. He was seen at bedside and is requesting to drink some water. He has no chest pain or palpitations and is continuously requesting to drink some water. BUN/creatinine 53 and 2.0, magnesium 2.2, phosphorus 2.9, potassium 3.3, repleted by primary team, white count of 7.8, hemoglobin of 12. Patient is net -5.5 L, however is 412 mL positive over the past 24 hours. Will continue to diurese patient patient to be downgraded to telemetry. Exam Vital Signs Temp Pulse Resp BP Pulse Ox O2 Del Method O2 Flow Rate 96.2 F L 59 L 16 92/59 L 91 L Room Air 3 07/14/24 04:00 07/14/24 07:00 07/14/24 07:00 07/14/24 04:00 07/14/24 04:00 07/14/24 04:00 07/12/24 20:00 FiO2 50 07/12/24 08:02 Narrative Exam General: AAOx3, in mild distress, disheveled and unkempt man with chest tattoos, HEENT: Conjunctiva clear, poor dentention Cardiovascular: S1, S2, radial pulses +2 bilat, RRR Pulmonary: Some crackles heard diffusely, no cough GI: Slight tenderness to palpitation of abdomen, no guarding, rigidity, rebound tenderness or distension, some bowel sounds heard : Inguinal hernia appreciated, non-reducible, R side Extremities: trace edema in lower extremities bilaterally, venous stasis present bilat, extremities a bit cold to touch Neuro: AAOx3, no focal motor or sensory deficits in the UE or LE bilat Objective Labs 07/14/24 06:16 07/14/24 06:16 Labs: Laboratory Results - last 24 hr 07/13/24 07/13/24 07/14/24 13:34 22:53 06:16 WBC 7.8 RBC 4.40 L Hgb 12.0 L Hct 35.1 L MCV 80 MCH 27.3 MCHC 34.2 RDW Std Deviation 51.5 H Plt Count 85 L D Neut % (Auto) 73 Lymph % (Auto) 10 [place] % (Auto) 13 H Eos % (Auto) 3 Baso % (Auto) 1 Neut # (Auto) 5.7 Lymph # (Auto) 0.8 L [place] # (Auto) 1.0 H Eos # (Auto) 0.2 Baso # (Auto) 0.0 Immature Gran # (Auto) 0.05 H Absolute Nucleated RBC 0.03 H Immature Gran % 1 H Nucleated RBC % 0 PT 12.6 H D INR 1.2 APTT 121.0 H* D Sodium 132 L 133 L 131 L Potassium 3.4 3.9 D 3.3 L D Chloride 96 L 95 L 93 L Carbon Dioxide 26.0 27.2 26.8 Anion Gap 10 11 11 BUN 46 H 49 H 53 H Creatinine 2.2 H 2.2 H 2.0 H Estim Creat Clear Calc 30.2 L 30.2 L 36.6 L eGFR 33 L 33 L 37 L BUN/Creatinine Ratio 21 H 22 H 27 H Glucose 117 H 104 96 Calculated Osmolality 277 279 277 Calcium 7.9 L 7.4 L 7.5 L Corrected Calcium 8.2 L Phosphorus 2.9 Magnesium 2.2 Total Bilirubin 1.7 H D AST 668 H* ALT 444 H Alkaline Phosphatase 114 Total Protein 6.0 Albumin 3.1 L Globulin 2.9 Albumin/Globulin Ratio 1.1 L ABG Interpretation ABG results: 07/11/24 07/11/24 07/11/24 10:01 10:30 14:38 ABG pH 7.15 L* 7.15 L* 7.28 L D ABG pCO2 29 L 30 L 38 ABG pO2 50 L* 47 L* 83 D ABG HCO3 10 L 11 L 18 L ABG O2 Saturation 72 L 68 L 95 ABG Base Excess -17 L -17 L -8 L 07/12/24 10:25 ABG pH 7.42 D ABG pCO2 39 ABG pO2 69 L ABG HCO3 25 ABG O2 Saturation 94 ABG Base Excess 1 Quality Measures Quality Measures none Assessment & Plan Assessment Current Active Medications: Generic Name Dose Route Start Last Admin Trade Name Freq PRN Reason Stop Dose Admin Acetaminophen 650 mg 07/11/24 11:19 Acetaminophen 325 Mg Tablet PO 08/10/24 11:18 Q6H PRN Fever >101.5 Amiodarone HCl 200 mg 07/13/24 09:00 07/14/24 08:15 Amiodarone Hcl 200 Mg Tablet PO 08/12/24 08:59 Not Given BID JANETTE Aspirin 81 mg 07/12/24 09:00 07/13/24 08:48 Aspirin Ec 81 Mg Tabec PO 08/11/24 08:59 81 mg QDAY JANETTE Administration Bumetanide 1 mg 07/14/24 09:00 07/14/24 08:15 Bumetanide Inj 0.25 Mg/Ml Vial 4 Ml IVP 08/13/24 08:59 Not Given QDAY JANETTE Carvedilol 3.125 mg 07/12/24 17:30 07/14/24 08:15 Carvedilol 3.125 Mg Tablet PO 08/11/24 17:29 Not Given BIDWM JANETTE Dextrose 25 ml 07/11/24 11:15 07/11/24 18:45 Dextrose 50%-Water Inj 50 Ml Syringe IV 08/10/24 11:14 25 ml Q15MIN PRN Administration BG 50-70 responsive npo pt Dextrose 50 ml 07/11/24 11:15 07/11/24 13:29 Dextrose 50%-Water Inj 50 Ml Syringe IV 08/10/24 11:14 50 ml Q15MIN PRN Administration BG <50 OR BG <70 & pt unresponsive Glucagon 1 mg 07/11/24 11:15 Glucagon Inj 1 Mg Vial IM Q15MIN PRN BG <70, and no IV access Hydralazine HCl 50 mg 07/12/24 09:45 07/14/24 08:16 Hydralazine Hcl 25 Mg Tablet PO 08/11/24 09:44 Not Given BID JANETTE Heparin Sodium/Dextrose 25,000 unit in 250 mls @ 10.342 mls/hr 07/11/24 15:30 07/14/24 07:35 Heparin In D5w Ivpb IV 07/25/24 15:29 Infused .Q24H JANETTE Titration Protocol 12 UNITS/KG/HR Doxycycline Hyclate 100 mg/ 100 mls @ 100 mls/hr 07/13/24 21:00 07/13/24 21:10 Sodium Chloride IV 07/20/24 20:59 100 mls/hr BID JANETTE Administration Mupirocin 0 gm 07/13/24 21:00 07/13/24 21:04 Mupirocin Oint 2% 15 Gm Tube TOP 07/20/24 20:59 Not Given BID JANETTE Oseltamivir Phosphate 30 mg 07/12/24 21:00 07/13/24 21:10 Oseltamivir 30 Mg Capsule PO 07/17/24 20:59 30 mg BID JANETTE Administration Potassium Chloride 40 meq 07/14/24 13:00 Potassium Chloride 20 Meq Tabcr PO 07/14/24 13:01 X1 ONE Sennosides 1 tab 07/11/24 11:19 Senna Tablet PO 08/10/24 11:18 QDAY PRN constipation Protocol Plan Assessment 64-year-old male with a past medical history of HFrEF with ejection fraction of 20-25%, methamphetamine abuse, 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 #Cardiorenal syndrome #NSTEMI type II, likely related to demand ischemia #Acute on chronic exacerbation of HFrEF (20 to 25%, May 2024) #Non ischemic dilated cardiomyopathy, with wall motion abnormalities #Hx of HTN #Hx of sustained ventricular tachycardia Patient has had multiple admissions for similar complaints He recently left AMA from [facility] for similar symptoms in which she had a cardiac stress test which is unremarkable and also echo which showed similar findings to previous echocardiograms with EF of ~15% ICU did bedside echo which showed bedside IVC shows 2.6 cm, significantly dilated Last echo from May 2024 shows EF 20 to 25%, dilated cardiomyopathy, global hypokinesis, biatrial dilation Troponin 4.2 ->6.7 ->7.4 -> 10.3 -> 10.4 -> ~7, no need to trend Nuclear Stress test in [facility] showed no evidence of stress induced ischemia, however severely decreased LVEF and increased EDV and global hypokinesis, LVEF 364 mL Regarding his elevated troponin. Troponins continue to to increase up to 7.0. Even during previous admissions patient had significant troponin elevation up to 5.0. Mostly NSTEMI type II in the setting of supply/demand mismatch with severe biventricular failure and dilated cardiomyopathy. Methamphetamine abuse patient still have elevated troponins secondary to direct toxicity to the cardiac myocytes causing eventual myocardial necrosis and myocarditis. Patient was recently admitted a week ago at [facility] with similar presentation with elevated troponins as well as CHF exacerbation patient did have a nuclear stress test performed at that time which did not show any evidence of active ischemia even though showed severely reduced ejection fraction at 14% and the left ventricular end-diastolic volume is elevated at 376 mL and end-systolic volume was 345 mL. There was some apical thinning but no clear evidence of any reversible ischemia. Patient was diagnosed with nonischemic cardiomyopathy and no cardiac cath was performed during that admission. Patient again signed out AMA 2 days after it and got readmitted here after a few days further episodes of substance abuse. Recommend aggressive medical treatment for the NSTEMI type II given the recent negative stress test. Recommend aspirin for now. Statin held due to in the elevated LFTs and beta-augustine held to have blood pressure room for the diuresis. Creatinine 2.0 compared to 2.3 yesterday Net= -5.5 L until today but positive 240 ml yesterday. Pt will need aggressive diuresis at this point, will medically manage Plan: ?Continue with Amio 200 mg BID ?We recommend to increase Bumex 2 mg IV twice daily for aggressive Diuresis ?Strict intake and output ?Daily weight ?Fluid restriction 1500 cc ?Continue with aspirin ?Echo ?Keep magnesium and potassium above 2 and 4 respectively #Acute on chronic hypoxic respiratory failure #Influenza B+ #Congestive hepatopathy #Transaminitis #Hyperbilirubinemia #History of hep C #Acute kidney injury #Hypervolemic hyponatremia #Hyperkalemia #Hypermagnesemia #High anion gap metabolic acidosis, uncompensated with respiratory acidosis #Lactic acidosis #Coagulopathy, elevated PT, INR, D-dimer #Thrombocytopenia #Leukocytosis #Normocytic normochromic anemia #Chronic osteomyelitis #Right inguinal hernia #Polysubstance abuse Management above handled by ICU team Patient seen and care discussed with my attending physician, Dr. Joe Duron, PGY-1 Attending Provider Attestation/Addendum I have personally seen and examined the patient separately on the above date of service and discussed the plan of care with the resident. I reviewed the resident Dr. Oleary consultation progress note and agree with the resident findings and plan in the note above and have also edited the documentation to reflect my findings and plan. Ismael Diaz M.D. Interventional Cardiology
[2024-07-14] MEDS: ASPIRIN EC 81 MG TABEC PO (08:50)
[2024-07-14] MEDS: OSELTAMIVIR 30 MG CAPSULE PO ×2 (08:51→20:45)
[2024-07-14] MEDS: POTASSIUM CHLORIDE 20 mEq TABCR 40 MEQ PO ×2 (08:51→12:24)
[2024-07-14] MEDS: DOXYCYCLINE INJ 100 MG in SODIUM CHLORIDE 0.9% (P) 100 ML IV ×2 (08:51→20:45)
[2024-07-14] MEDS: Heparin/D5w 25K 250 ML Ivpb 25,000 UNIT/250 ML BAG 11.204 UNIT IV (08:53)
[2024-07-14 10:20] LABS: Platelet Count 178 Thou/mm3 (140-440)
--- NOTE | 2024-07-14 13:31 | PD.RESPRO ---
Documentation for date of: 07/14/24 Subjective Subjective Interval history: Patient was seen at bedside this morning. No overnight events. Patient's heparin was discontinued as it has been 48 hours. Will continue with patient's Bumex 1 mg daily as well as amiodarone for his frequent PVCs and V. tach's. Will continue with Tamiflu for influenza and will continue with doxycycline for his chronic osteomyelitis. Exam Vital Signs Temp Pulse Resp BP Pulse Ox O2 Del Method O2 Flow Rate 97.6 F 56 L 20 109/72 90 L Room Air 3 07/14/24 08:00 07/14/24 08:00 07/14/24 08:00 07/14/24 08:00 07/14/24 08:00 07/14/24 04:00 07/12/24 20:00 FiO2 50 07/12/24 08:02 Narrative Exam General: A/O x2 (not to time), no acute distress Eyes: PERRL, EOMI. Anicteric, vision grossly intact. Ears: No ear pain, no ear discharge, Hearing grossly intact. Nose: No nasal discharge. Mouth/Throat: Dry mucous membranes, missing dentation, no redness, no lesions. Neck: Neck supple, non-tender, no cervical lymphadenopathy. Lungs: Clear MARGARET to auscultation and percussion, No accessory muscle use. Cardio: Normal S1/S2, regular rhythm, no murmurs, no JVD Abdomen: Soft, non-tender, no palpable masses, peristalsis present, no guarding or rebound. Extremities: Symmetrical, no significant deformities, 2+ peripheral edema , non-tender, peripheral pulses presents. Skin: No rashes, no lesions, warm to touch. Multiple tattoos. Neuro: No focal neurological deficits. motor and senosry intact Objective Labs 07/14/24 06:16 07/14/24 06:16 Labs: Laboratory Results - last 24 hr 07/13/24 07/13/24 07/14/24 13:34 22:53 06:16 WBC 7.8 RBC 4.40 L Hgb 12.0 L Hct 35.1 L MCV 80 MCH 27.3 MCHC 34.2 RDW Std Deviation 51.5 H Plt Count 178 D Neut % (Auto) 73 Lymph % (Auto) 10 [place] % (Auto) 13 H Eos % (Auto) 3 Baso % (Auto) 1 Neut # (Auto) 5.7 Lymph # (Auto) 0.8 L [place] # (Auto) 1.0 H Eos # (Auto) 0.2 Baso # (Auto) 0.0 Immature Gran # (Auto) 0.05 H Absolute Nucleated RBC 0.03 H Immature Gran % 1 H Nucleated RBC % 0 PT 12.6 H D INR 1.2 APTT 121.0 H* D Sodium 132 L 133 L 131 L Potassium 3.4 3.9 D 3.3 L D Chloride 96 L 95 L 93 L Carbon Dioxide 26.0 27.2 26.8 Anion Gap 10 11 11 BUN 46 H 49 H 53 H Creatinine 2.2 H 2.2 H 2.0 H Estim Creat Clear Calc 30.2 L 30.2 L 36.6 L eGFR 33 L 33 L 37 L BUN/Creatinine Ratio 21 H 22 H 27 H Glucose 117 H 104 96 Calculated Osmolality 277 279 277 Calcium 7.9 L 7.4 L 7.5 L Corrected Calcium 8.2 L Phosphorus 2.9 Magnesium 2.2 Total Bilirubin 1.7 H D AST 668 H* ALT 444 H Alkaline Phosphatase 114 Total Protein 6.0 Albumin 3.1 L Globulin 2.9 Albumin/Globulin Ratio 1.1 L ABG Interpretation ABG results: 07/11/24 07/11/24 07/11/24 10:01 10:30 14:38 ABG pH 7.15 L* 7.15 L* 7.28 L D ABG pCO2 29 L 30 L 38 ABG pO2 50 L* 47 L* 83 D ABG HCO3 10 L 11 L 18 L ABG O2 Saturation 72 L 68 L 95 ABG Base Excess -17 L -17 L -8 L 07/12/24 10:25 ABG pH 7.42 D ABG pCO2 39 ABG pO2 69 L ABG HCO3 25 ABG O2 Saturation 94 ABG Base Excess 1 Quality Measures Quality Measures none Assessment & Plan Assessment Current Active Medications: Generic Name Dose Route Start Last Admin Trade Name Freq PRN Reason Stop Dose Admin Acetaminophen 650 mg 07/11/24 11:19 Acetaminophen 325 Mg Tablet PO 08/10/24 11:18 Q6H PRN Fever >101.5 Amiodarone HCl 200 mg 07/13/24 09:00 07/14/24 08:15 Amiodarone Hcl 200 Mg Tablet PO 08/12/24 08:59 Not Given BID JANETTE Aspirin 81 mg 07/12/24 09:00 07/14/24 08:50 Aspirin Ec 81 Mg Tabec PO 08/11/24 08:59 81 mg QDAY JANETTE Administration Bumetanide 1 mg 07/14/24 09:00 07/14/24 08:15 Bumetanide Inj 0.25 Mg/Ml Vial 4 Ml IVP 08/13/24 08:59 Not Given QDAY JANETTE Dextrose 25 ml 07/11/24 11:15 07/11/24 18:45 Dextrose 50%-Water Inj 50 Ml Syringe IV 08/10/24 11:14 25 ml Q15MIN PRN Administration BG 50-70 responsive npo pt Dextrose 50 ml 07/11/24 11:15 07/11/24 13:29 Dextrose 50%-Water Inj 50 Ml Syringe IV 08/10/24 11:14 50 ml Q15MIN PRN Administration BG <50 OR BG <70 & pt unresponsive Glucagon 1 mg 07/11/24 11:15 Glucagon Inj 1 Mg Vial IM Q15MIN PRN BG <70, and no IV access Heparin Sodium (Porcine) 5,000 unit 07/14/24 14:00 Heparin Sod Inj 5000 Unit/Ml Vial SC 07/28/24 13:59 Q8HR [facility] Hydralazine HCl 50 mg 07/12/24 09:45 07/14/24 08:16 Hydralazine Hcl 25 Mg Tablet PO 08/11/24 09:44 Not Given BID JANETTE Doxycycline Hyclate 100 mg/ 100 mls @ 100 mls/hr 07/13/24 21:00 07/14/24 08:51 Sodium Chloride IV 07/20/24 20:59 100 mls/hr BID JANETTE Administration Mupirocin 0 gm 07/13/24 21:00 07/13/24 21:04 Mupirocin Oint 2% 15 Gm Tube TOP 07/20/24 20:59 Not Given BID JANETTE Oseltamivir Phosphate 30 mg 07/12/24 21:00 07/14/24 08:51 Oseltamivir 30 Mg Capsule PO 07/17/24 20:59 30 mg BID JANETTE Administration Sennosides 1 tab 07/11/24 11:19 Senna Tablet PO 08/10/24 11:18 QDAY PRN constipation Protocol Plan 64-year-old male with past medical history of HFrEF (EF 20 to 25% on May 2024), dilated cardiomyopathy, hypertension, hyperlipidemia, chronic left foot osteomyelitis, hepatitis C, cholelithiasis, substance abuse (methamphetamine), and homelessness was admitted to the ICU on 07/11/2024 due to high suspicion of cardiogenic shock, NSTEMI type I, and CHF exacerbation. Patient was downgraded to medical floors on 07/14/2024. #NSTEMI ?Patient had been seen in our ER prior to admission and he came in with complaints of chest pain ?Troponins peaked at 10.469 before downtrending Plan: ? Patient completed heparin drip 48 hours as per ACS protocol ?Cardiology consulted, appreciate recommendations ? Continue monitor #Acute compensated heart failure exacerbation, HFrEF (EF 20 to 25% on 05/2024) #Frequent PVCs and V. tach #Hx of dilated cardiomyopathy ? Patient came in with bilateral lower extremity swelling as well as worsening shortness of breath on admission echo on May 2024 showed EF of 20 to 25% ?It was noted on telemetry that patient had multiple episodes of PVCs as well as asymptomatic V. tach. ? Arrhythmias most likely in the setting of HFrEF along with polysubstance abuse Plan: ? Continue Bumex 1 mg daily ? Continue amiodarone 200 Mg twice daily ? Continue carvedilol 3.125 mg twice daily ?Echo pending ?Keep potassium magnesium above 4 and 2 respectively to avoid any further arrhythmias ? Fluid restrictions ? Strict GABRIELLE's ? Daily weights ? Cardiology consulted, appreciate commendations ? Will continue to monitor #Acute hypoxic respiratory failure, resolved #Influenza pneumonia ? Patient came in with shortness of breath ? Chest x-ray did show pneumonia ? Patient tested positive for influenza Plan: ? Continue Tamiflu 30 mg twice daily [07/04/2024-] (renally dosed) ?Continue doxycycline 100 mg twice daily [07/13/2024?] ?Continue to monitor #Congestive hepatopathy #Transaminitis #Hyperbilirubinemia #Hx of hepatitis C ? T bilirubin 2.7, AST 764, ALT 142, and alkaline phosphatase 137 on admission ?T bilirubin 1.7, AST 668, ALT 454 today, improving ?DDx mostly in the setting of CHF exacerbation, fluid overload status ?Patient has no right upper quadrant pain ? Liver ultrasound showed fatty liver Plan: ? Continue to monitor #Chronic left foot osteomyelitis ?Patient had osteomyelitis of foot since 2022 ?Foot x-ray showed osteomyelitis of the distal left first metatarsal and base proximal phalanx of first digit Plan: ?Continue patient's doxycycline IV [?] #Hx of hypertension #Hx of hyperlipidemia ?Continue carvedilol 313.125 twice daily and hydralazine 50 mg twice daily ? Holding atorvastatin in the setting of transaminitis Disposition: Patient seen in ICU for NSTEMI, finished 48hrs of heparin drip, . Diet: Cardiac GI prophylaxis: not indicated DVT prophylaxis: Heparin sc Code: Full code Case disclosed with Attending Dr. Ortega and My senior Dr. Perdomo PGY2. Cortez Johnson PGY1 Senior Resident Attestation: The patient is a 64-year-old male with significant past medical history of HFrEF ejection fraction 20 to 25% on May 2024, dilated cardiomyopathy, hypertension, hyperlipidemia, chronic left foot osteomyelitis, hepatitis C, cholelithiasis, substance abuse with meth amphetamine, and homelessness presented with SOB and was found to have cardiogenic shock in the setting of an NSTEMI leading to CHF exacerbation. The patient completed 48 hours of heparin drip, was switched to subcu heparin, will continue with Bumex 1 mg daily, amiodarone 200 Mg twice daily and carvedilol 3.125 Mg twice daily. Will continue to monitor electrolytes, and keep potassium greater than 4 and magnesium greater than 2 I discussed with and supervised the validation intern physician involved in the care of this patient. I personally saw and examined the patient and discussed the assessment and plan with the entire medicine team, including my attending. I agree with the assessment and plan as documented above. Eleazar Perdomo MD PGY2 Internal Medicine Attending Provider Attestation/Addendum I reviewed labs, imaging, EKG, home medications and prior available records. Face to face evaluation was performed by me. I have personally examined the patient and discussed assessment and plan with the IM team. I reviewed the resident note and agree with the plan with exceptions as below. Acute hypoxic respiratory failure: In setting of cardiogenic shock. He is on nasal cannula. Management as below. Wean off oxygen as needed Cardiogenic shock: BP is borderline. He is off pressors. Continue IV diuresis. Follow-up repeat echocardiogram HFrEF EF 20 to 25%: IV Bumex. Monitor I's and O's GEOVANY: Creatinine improved. Likely cardiorenal. Diuresis as above. Monitor kidney function. Avoid nephrotoxins. Renally dosed medications. Acute liver injury: Likely shock liver in the setting of cardiogenic shock. Management as above. Trend LFTs: Downtrending Non-STEMI: Likely in setting of cardiogenic shock or triggering it. He finished 48 hours of IV heparin. Continue aspirin. Switch to subcutaneous heparin. Cardiology is following. Influenza B: Started Tamiflu. Supportive care. Left foot osteomyelitis: Continue doxycycline. Continue wound care Methamphetamine abuse: Likely contributing to the cardiomyopathy. Counseled the patient regarding importance of stopping drug abuse
--- NOTE | 2024-07-14 15:59 | PC.SS ---
Update: Patient has been downgraded to Tele. Patient on room air. P.O. feeds. Patient alert/oriented.
--- NOTE | 2024-07-14 19:11 | PC.NURSE ---
Report given to NICKOLAS Scott at this time.
[2024-07-14] MEDS: AMIODARONE HCL 200 MG TABLET PO (20:45)
[2024-07-14] MEDS: hydrALAZINE HCL 25 MG TABLET 50 MG PO (20:45)
[2024-07-14] MEDS: HEPARIN SOD INJ 5000 UNIT/ML VIAL SC (20:54)
[2024-07-15] VITALS (11 sets, daily range): BP systolic 112–134; BP diastolic 74–98; PULSE 63–78; RESP 15–97; TEMP 36.1–37.2; O2SAT 95–98; BMI 25.9
[2024-07-15 05:24] LABS: Basophils % (Auto) 0 % (0-2.5); Eosinophils # (Auto) 0.1 Thou/mm3 (0.0-0.5); Eosinophils % (Auto) 1 % (0-10); Hematocrit 36.1 % (41.0-53.0); Hemoglobin 12.1 g/dL (13.5-16.0); Immature Granulocytes % (Auto) 1 % (0-0); Immature Granulocytes Auto 0.06 Thou/mm3 (0.00-0.00); Lymphocytes # (Auto) 0.6 Thou/mm3 (1.0-4.8); Lymphocytes % (Auto) 6 % (10-50); Mean Corpuscular HGB Conc 33.5 g/dl (31.0-37.0); Mean Corpuscular Hemoglobin 27.1 pg (25.0-35.0); Mean Corpuscular Volume 81 fL (80-100); Monocytes # (Auto) 1.7 Thou/mm3 (0.0-0.8); Monocytes % (Auto) 18 % (0-12); Neutrophils # (Auto) 6.9 Thou/mm3 (1.8-7.7); Neutrophils % (Auto) 74 % (37-80); Nucleated Red Blood Cell # 0.07 Thou/mm3 (0.00-0.00); Nucleated Red Blood Cell % 1 /100 WBC (0); Platelet Count 92 Thou/mm3 (140-440); RDW Standard Deviation 51.7 fL (35.1-43.9); Red Blood Count 4.47 Miln/mm3 (4.50-5.90); White Blood Count 9.3 Thou/mm3 (3.8-10.6)
[2024-07-15 06:14] LABS: Alanine Aminotransferase 450 U/L (10-49); Albumin, Serum 3.2 gm/dL (3.4-4.8); Albumin/Globulin Ratio 1.1 (1.2-2.2); Alkaline Phosphatase 123 U/L (46-116); Anion Gap 12 (7-16); Aspartate Amino Transferase 613 U/L (0-34); BUN/Creatinine Ratio 28 Ratio (12-20); Bilirubin,Total 1.8 mg/dL (0.3-1.2); Blood Urea Nitrogen 51 mg/dL (9-23); Calcium (Corrected) 8.6 mg/dL (8.5-10.1); Carbon Dioxide 25.4 mMol/L (20.0-31.0); Chloride 95 mMol/L (98-107); Creatinine (Component) 1.8 mg/dL (0.6-1.3); Estimated Creatinine Clearance 40.6 mL/min (>60); Glucose 81 mg/dL (74-106); Magnesium 1.8 mg/dL (1.6-2.6); Osmolality,Calculated 277 (275-295); Phosphorous 3.2 mg/dL (2.4-5.1); Potassium 4.2 mMol/L (3.4-5.1); Sodium 132 mMol/L (136-145); Total Protein 6.2 gm/dL (5.7-8.2); eGFR 42 See Note
[2024-07-15 09:26] LABS: Platelet Count 185 Thou/mm3 (140-440)
[2024-07-15] MEDS: ASPIRIN EC 81 MG TABEC PO (09:27)
[2024-07-15] MEDS: hydrALAZINE HCL 25 MG TABLET 50 MG PO ×2 (09:27→20:24)
[2024-07-15] MEDS: AMIODARONE HCL 200 MG TABLET PO ×2 (09:27→20:24)
[2024-07-15] MEDS: OSELTAMIVIR 30 MG CAPSULE PO ×2 (09:27→20:19)
[2024-07-15] MEDS: BUMETANIDE INJ 0.25 MG/ML VIAL 4 ML 2 MG IVP (09:28)
[2024-07-15] MEDS: DOXYCYCLINE INJ 100 MG in SODIUM CHLORIDE 0.9% (P) 100 ML IV ×2 (09:28→20:19)
--- NOTE | 2024-07-15 10:01 | ESPR_ITS ---
<Statement entered by Guerrero Araiza MD - 07/16/24 13:41> I reviewed above note and agree with findings and plans. I have also personally examined the patient with medicine team and went over assessment and plan with medical team including intelligence intern and resident physician. Documentation for date of: 07/15/24 Subjective Subjective Interval history: Patient was seen at bedside this morning. No overnight events. Patient was having some difficulty breathing this morning, was oxygenating well and after being placed on nasal cannula and is shortness of breath improved. Cardiology stated that they want patient to be on Bumex 2 mg twice daily therefore was switched from 1 mg twice daily to 2 mg. Coreg discontinued by Cardiology. Echo showed 20 to 25% ejection fraction. No complaint at this time. Exam Vital Signs Temp Pulse Resp BP Pulse Ox O2 Del Method O2 Flow Rate 98.9 F 74 22 H 127/86 H 98 Room Air 1 07/15/24 08:00 07/15/24 09:28 07/15/24 08:00 07/15/24 09:28 07/15/24 08:00 07/15/24 08:00 07/15/24 04:00 FiO2 50 07/12/24 08:02 Narrative Exam General: A/O x3, mild respiratory distress Eyes: PERRL, EOMI. Anicteric, vision grossly intact. Ears: No ear pain, no ear discharge, Hearing grossly intact. Nose: No nasal discharge. Mouth/Throat: Dry mucous membranes, missing dentation, no redness, no lesions. Neck: Neck supple, non-tender, no cervical lymphadenopathy. Lungs: Clear MARGARET to auscultation and percussion, No accessory muscle use. Cardio: Normal S1/S2, regular rhythm, no murmurs, no JVD Abdomen: Soft, non-tender, no palpable masses, peristalsis present, no guarding or rebound. Extremities: Symmetrical, no significant deformities, 1+ peripheral edema , non-tender, peripheral pulses presents. Skin: No rashes, no lesions, warm to touch. Multiple tattoos. Neuro: No focal neurological deficits. motor and senosry intact Objective Labs 07/15/24 08:35 07/15/24 04:55 Labs: Laboratory Results - last 24 hr 07/14/24 07/15/24 07/15/24 06:16 04:55 08:35 WBC 9.3 RBC 4.47 L Hgb 12.1 L Hct 36.1 L MCV 81 MCH 27.1 MCHC 33.5 RDW Std Deviation 51.7 H Plt Count 178 D 92 L D 185 D Neut % (Auto) 74 Lymph % (Auto) 6 L [place] % (Auto) 18 H Eos % (Auto) 1 Baso % (Auto) 0 Neut # (Auto) 6.9 Lymph # (Auto) 0.6 L [place] # (Auto) 1.7 H Eos # (Auto) 0.1 Baso # (Auto) 0.0 Immature Gran # (Auto) 0.06 H Absolute Nucleated RBC 0.07 H Immature Gran % 1 H Nucleated RBC % 1 H Sodium 132 L Potassium 4.2 D Chloride 95 L Carbon Dioxide 25.4 Anion Gap 12 BUN 51 H Creatinine 1.8 H Estim Creat Clear Calc 40.6 L eGFR 42 L BUN/Creatinine Ratio 28 H Glucose 81 Calculated Osmolality 277 Calcium 8.0 L Corrected Calcium 8.6 Phosphorus 3.2 Magnesium 1.8 Total Bilirubin 1.8 H AST 613 H* ALT 450 H Alkaline Phosphatase 123 H Total Protein 6.2 Albumin 3.2 L Globulin 3.0 Albumin/Globulin Ratio 1.1 L ABG Interpretation ABG results: 07/11/24 07/11/24 07/11/24 10:01 10:30 14:38 ABG pH 7.15 L* 7.15 L* 7.28 L D ABG pCO2 29 L 30 L 38 ABG pO2 50 L* 47 L* 83 D ABG HCO3 10 L 11 L 18 L ABG O2 Saturation 72 L 68 L 95 ABG Base Excess -17 L -17 L -8 L 07/12/24 10:25 ABG pH 7.42 D ABG pCO2 39 ABG pO2 69 L ABG HCO3 25 ABG O2 Saturation 94 ABG Base Excess 1 Quality Measures Quality Measures none Assessment & Plan Assessment Current Active Medications: Generic Name Dose Route Start Last Admin Trade Name Freq PRN Reason Stop Dose Admin Acetaminophen 650 mg 07/11/24 11:19 Acetaminophen 325 Mg Tablet PO 08/10/24 11:18 Q6H PRN Fever >101.5 Amiodarone HCl 200 mg 07/13/24 09:00 07/15/24 09:27 Amiodarone Hcl 200 Mg Tablet PO 08/12/24 08:59 200 mg BID JANETTE Administration Aspirin 81 mg 07/12/24 09:00 07/15/24 09:27 Aspirin Ec 81 Mg Tabec PO 08/11/24 08:59 81 mg QDAY JANETTE Administration Bumetanide 2 mg 07/15/24 09:00 07/15/24 09:28 Bumetanide Inj 0.25 Mg/Ml Vial 4 Ml IVP 08/14/24 08:59 2 mg QDAY JANETTE Administration Dextrose 25 ml 07/11/24 11:15 07/11/24 18:45 Dextrose 50%-Water Inj 50 Ml Syringe IV 08/10/24 11:14 25 ml Q15MIN PRN Administration BG 50-70 responsive npo pt Dextrose 50 ml 07/11/24 11:15 07/11/24 13:29 Dextrose 50%-Water Inj 50 Ml Syringe IV 08/10/24 11:14 50 ml Q15MIN PRN Administration BG <50 OR BG <70 & pt unresponsive Glucagon 1 mg 07/11/24 11:15 Glucagon Inj 1 Mg Vial IM Q15MIN PRN BG <70, and no IV access Heparin Sodium (Porcine) 5,000 unit 07/14/24 14:00 07/15/24 06:12 Heparin Sod Inj 5000 Unit/Ml Vial SC 07/28/24 13:59 Not Given Q8HR JANETTE Hydralazine HCl 50 mg 07/12/24 09:45 07/15/24 09:27 Hydralazine Hcl 25 Mg Tablet PO 08/11/24 09:44 50 mg BID JANETTE Administration Doxycycline Hyclate 100 mg/ 100 mls @ 100 mls/hr 07/13/24 21:00 07/15/24 09:28 Sodium Chloride IV 07/20/24 20:59 100 mls/hr BID JANETTE Administration Magnesium Sulfate 4 gm in 50 mls @ 12.5 mls/hr 07/15/24 07:44 Magnesium Sulfate Ivpb IV 07/15/24 11:43 X1 ONE Mupirocin 0 gm 07/13/24 21:00 07/13/24 21:04 Mupirocin Oint 2% 15 Gm Tube TOP 07/20/24 20:59 Not Given BID JANETTE Oseltamivir Phosphate 30 mg 07/12/24 21:00 07/15/24 09:27 Oseltamivir 30 Mg Capsule PO 02/02/25 20:59 30 mg BID JANETTE Administration Sennosides 1 tab 07/11/24 11:19 Senna Tablet PO 08/10/24 11:18 QDAY PRN constipation Protocol Plan 64-year-old male with past medical history of HFrEF (EF 20 to 25% on May 2024), dilated cardiomyopathy, hypertension, hyperlipidemia, chronic left foot osteomyelitis, hepatitis C, cholelithiasis, substance abuse (methamphetamine), and homelessness was admitted to the ICU on 07/11/2024 due to high suspicion of cardiogenic shock, NSTEMI type I, and CHF exacerbation. Patient was downgraded to medical floors on 07/14/2024. #Acute Hypoxic Respiratory Failure 2/2 #Acute compensated heart failure exacerbation, HFrEF (EF 20 to 25% on 06/2024) #Frequent PVCs and V. tach #Hx of dilated cardiomyopathy ? Patient came in with bilateral lower extremity swelling as well as worsening shortness of breath on admission echo on May 2024 showed EF of 20 to 25% ?It was noted on telemetry that patient had multiple episodes of PVCs as well as asymptomatic V. tach. ? Arrhythmias most likely in the setting of HFrEF along with polysubstance abuse ?Echo showed EF 20-25% (06/2024) Plan: ? Continue Bumex 2 mg daily ? Continue amiodarone 200 Mg twice daily ? Stopped carvedilol 3.125 mg twice daily by cardio ?Keep potassium magnesium above 4 and 2 respectively to avoid any further arrhythmias ? Fluid restrictions ? Strict GABRIELLE's ? Daily weights ? Cardiology consulted, appreciate commendations ? Will continue to monitor #Influenza pneumonia ? Patient came in with shortness of breath ? Chest x-ray did show pneumonia ? Patient tested positive for influenza Plan: ? Continue Tamiflu 30 mg twice daily [07/12/2024-] (renally dosed) ?Continue doxycycline 100 mg twice daily [07/13/2024?] ?Continue to monitor #GEOVANY ? Patient came in initially with creatinine of 2.9 ? Baseline creatinine around 1.2-1.3 ?Mostly prerenal in the setting of fluid overload status and CHF exacerbation ? Creatinine today was 1.8 Plan: ?Continue diuresing ? Avoid nephrotoxic agents ? Renal dose medication ? Will continue to monitor #NSTEMI ?Patient had been seen in our ER prior to admission and he came in with complaints of chest pain ?Troponins peaked at 10.469 before downtrending Plan: ? Patient completed heparin drip 48 hours as per ACS protocol ?Cardiology consulted, appreciate recommendations ? Continue monitor #Congestive hepatopathy #Transaminitis #Hyperbilirubinemia #Hx of hepatitis C ? T bilirubin 2.7, AST 764, ALT 142, and alkaline phosphatase 137 on admission ?T bilirubin 1.8, AST 613, ALT 450 today, improving ?DDx mostly in the setting of CHF exacerbation, fluid overload status ?Patient has no right upper quadrant pain ? Liver ultrasound showed fatty liver Plan: ? Continue to monitor #Chronic left foot osteomyelitis ?Patient had osteomyelitis of foot since 2022 ?Foot x-ray showed osteomyelitis of the distal left first metatarsal and base proximal phalanx of first digit Plan: ?Continue patient's doxycycline IV [?] #Hx of hypertension #Hx of hyperlipidemia ?Stopped carvedilol 3.125 twice daily by cardio - Continue hydralazine 50 mg twice daily ? Holding atorvastatin in the setting of transaminitis Disposition: Patient seen in ICU for NSTEMI, finished 48hrs of heparin drip, continue Bumex 2mg BID and tamiflu. Diet: Cardiac GI prophylaxis: not indicated DVT prophylaxis: Heparin sc Code: Full code Case disclosed with Attending Dr. Araiza and My senior Dr. Perdomo PGY2. Cortez Johnson PGY1 Senior Resident Attestation: The patient is a 64-year-old male with significant past medical history of HFrEF ejection fraction 20 to 25% on May 2024, dilated cardiomyopathy, hypertension, hyperlipidemia, chronic left foot osteomyelitis, hepatitis C, cholelithiasis, substance abuse with meth amphetamine, and homelessness presented with SOB and was found to have cardiogenic shock in the setting of an NSTEMI leading to CHF exacerbation. Bumex dose was increased to 2 mg daily as per cardio reccs. we will continue with amiodarone 200 Mg twice daily and carvedilol 3.125 Mg twice daily. Will continue to monitor electrolytes, and keep potassium greater than 4 and magnesium greater than 2. GEOVANY is expected to improve after diuresis. I discussed with and supervised the intelligence intern physician involved in the care of this patient. I personally saw and examined the patient and discussed the assessment and plan with the entire medicine team, including my attending. I agree with the assessment and plan as documented above. Eleazar Perdomo MD PGY2 Internal Medicine
[2024-07-15] MEDS: Magnesium Sulfate 4 GM Ivpb 4 GM/50 ML BAG IV (10:41)
[2024-07-15] MEDS: HEPARIN SOD INJ 5000 UNIT/ML VIAL SC ×2 (14:46→21:38)
[2024-07-16] VITALS (10 sets, daily range): BP systolic 113–125; BP diastolic 81–90; PULSE 64–76; RESP 14–98; TEMP 36.1–36.9; O2SAT 95–99
--- NOTE | 2024-07-16 03:53 | ESPR_ITS ---
RE: NELDA LEON : 1960 DATE OF SERVICE: 07/15/2024 SUBJECTIVE: The patient is a 64-year-old male with nonischemic cardiomyopathy, congestive heart failure, HFrEF, low ejection fraction, chronic methamphetamine abuse, mitral related cardiomyopathy, admitted to the hospital with multiple problems, hypoxic respiratory failure improved. The patient was extubated, now transferred to telemetry and [facility]. Cardiac arrhythmias have resolved. Few PVCs are monitored, but no chest pain or shortness of breath reported. The patient is not very cooperative. He continues to feel about the same complain of any other symptoms at this time, not offering much complaints today. The patient is continued on Bumex switched to 1 mg twice daily, up to 2 mg now. Aggressive diuresis_ continues to feel well. No evidence of shortness of breath or chest pain. OBJECTIVE: Vital Signs: His exam shows blood pressure 120/80, pulse rate is 74, respirations 22, temperature normal. Neck: Supple. Lungs: Decreased breath sounds at the bases. No rales. Heart: S1, S2, regular, distant. Abdomen: Thin and soft. Extremities: No edema. ASSESSMENT: 1. Acute hypoxic respiratory failure, improved. 2. Acutely decompensated chronic systolic heart failure, EF 25%. 3. Frequent premature ventricular contractions, ventricular dysrhythmias, improved. 4. Nonischemic dilated cardiomyopathy, ejection fraction 20% to 25%. 5. Troponin elevation, possibly not due to myocardial infarction, due to type 2 troponin elevation. Though the troponin elevation up to 10, not unusual for the patient with methamphetamine abuse to go up to 10. RECOMMENDATIONS: Continue aggressive diuretic therapy. Watch the enzymes and _ no plan for any invasive cardiac workup at this time. DT: 00:03:06 TT: 03:44:00 Ref: [id number] - TID: [id number] [facility]
[2024-07-16] MEDS: HEPARIN SOD INJ 5000 UNIT/ML VIAL SC ×3 (05:01→21:02)
[2024-07-16 06:56] LABS: Alanine Aminotransferase 332 U/L (10-49); Albumin, Serum 3.2 gm/dL (3.4-4.8); Alkaline Phosphatase 111 U/L (46-116); Anion Gap 10 (7-16); Aspartate Amino Transferase 383 U/L (0-34); BUN/Creatinine Ratio 24 Ratio (12-20); Bilirubin,Total 1.9 mg/dL (0.3-1.2); Blood Urea Nitrogen 38 mg/dL (9-23); Calcium 7.9 mg/dL (8.3-10.6); Calcium (Corrected) 8.5 mg/dL (8.5-10.1); Carbon Dioxide 28.3 mMol/L (20.0-31.0); Chloride 94 mMol/L (98-107); Creatinine (Component) 1.6 mg/dL (0.6-1.3); Estimated Creatinine Clearance 45.7 mL/min (>60); Globulin 3.1 gm/dL (2.3-3.5); Glucose 91 mg/dL (74-106); Osmolality,Calculated 273 (275-295); Phosphorous 3.5 mg/dL (2.4-5.1); Potassium 3.2 mMol/L (3.4-5.1); Sodium 132 mMol/L (136-145); Total Protein 6.3 gm/dL (5.7-8.2); eGFR 48 See Note
[2024-07-16 08:53] LABS: Basophils # (Auto) 0.1 Thou/mm3 (0.0-0.2); Basophils % (Auto) 1 % (0-2.5); Eosinophils # (Auto) 0.2 Thou/mm3 (0.0-0.5); Eosinophils % (Auto) 1 % (0-10); Hematocrit 38.4 % (41.0-53.0); Immature Granulocytes % (Auto) 1 % (0-0); Immature Granulocytes Auto 0.06 Thou/mm3 (0.00-0.00); Lymphocytes % (Auto) 9 % (10-50); Mean Corpuscular HGB Conc 33.9 g/dl (31.0-37.0); Mean Corpuscular Hemoglobin 26.9 pg (25.0-35.0); Mean Corpuscular Volume 79 fL (80-100); Monocytes # (Auto) 1.2 Thou/mm3 (0.0-0.8); Monocytes % (Auto) 11 % (0-12); Neutrophils # (Auto) 8.6 Thou/mm3 (1.8-7.7); Neutrophils % (Auto) 78 % (37-80); Nucleated Red Blood Cell # 0.12 Thou/mm3 (0.00-0.00); Nucleated Red Blood Cell % 1 /100 WBC (0); RDW Standard Deviation 52.4 fL (35.1-43.9); Red Blood Count 4.84 Miln/mm3 (4.50-5.90); White Blood Count 11.1 Thou/mm3 (3.8-10.6)
[2024-07-16 09:01] LABS: Platelet Count 140 Thou/mm3 (140-440)
[2024-07-16] MEDS: DOXYCYCLINE INJ 100 MG in SODIUM CHLORIDE 0.9% (P) 100 ML IV ×2 (09:33→20:49)
[2024-07-16] MEDS: hydrALAZINE HCL 25 MG TABLET 50 MG PO ×2 (09:34→20:51)
[2024-07-16] MEDS: ASPIRIN EC 81 MG TABEC PO (09:34)
[2024-07-16] MEDS: AMIODARONE HCL 200 MG TABLET PO ×2 (09:34→20:53)
[2024-07-16] MEDS: POTASSIUM CHLORIDE 20 mEq TABCR 40 MEQ PO (09:34)
[2024-07-16] MEDS: OSELTAMIVIR 30 MG CAPSULE PO ×2 (09:34→20:50)
--- NOTE | 2024-07-16 15:15 | PC.SS ---
SS met pt bedside confirmed plan is for pt to return to [facility]; pt will need transportation
--- NOTE | 2024-07-16 17:15 | ESPR_ITS ---
<Statement entered by Guerrero Araiza MD - 07/22/24 15:57> I reviewed above note and agree with findings and plans. I have also personally examined the patient with medicine team and went over assessment and plan with medical team including video editing intern and resident physician. Documentation for date of: 07/16/24 Subjective Subjective Interval history: Patient was seen at bedside this morning. No overnight events. Echo showed 20 to 25% ejection fraction Cardiology recommends increasing Bumex 1mg BID -> 2 mg BID ; Coreg discontinued Patient's shortness of breath has improved, he is now on RA saturating 99-00% Dispo: Discharge after 24 hour observation for troponinemia (10 -> 7) Exam Vital Signs Temp Pulse Resp BP Pulse Ox O2 Del Method O2 Flow Rate 97.0 F 70 18 119/81 96 Nasal Cannula 3 07/16/24 16:00 07/16/24 16:18 07/16/24 16:18 07/16/24 16:00 07/16/24 16:18 07/16/24 16:00 07/16/24 16:18 FiO2 50 07/12/24 08:02 Narrative Exam Constitutional Alert, oriented x3 and comfortable HEENT Vision grossly intact. Patent nares. Trachea midline. Respiratory Chest normal on inspection and clear to auscultation bilaterally. Cardiovascular S1 and S2 audible, RRR. No murmurs or carotid bruit. No gross JVD. Abdominal Soft and non tender to palpation in all quadrants. BS + Genitourinary No bladder tenderness, no flank pain. Normal to palpation. Musculoskeletal Extremities tone within normal limits. No LE edema. Neurological CN II - XII grossly intact. Extremity motor and sensation grossly intact. Skin Warm, dry and intact. No apparent lesions. Psychiatric Patient has a good affect, is cooperative. Objective Labs 07/16/24 08:26 07/16/24 06:09 Labs: Laboratory Results - last 24 hr 07/16/24 07/16/24 06:09 08:26 WBC 11.1 H RBC 4.84 Hgb 13.0 L Hct 38.4 L MCV 79 L MCH 26.9 MCHC 33.9 RDW Std Deviation 52.4 H Plt Count 140 D Neut % (Auto) 78 Lymph % (Auto) 9 L [place] % (Auto) 11 Eos % (Auto) 1 Baso % (Auto) 1 Neut # (Auto) 8.6 H Lymph # (Auto) 1.0 [place] # (Auto) 1.2 H Eos # (Auto) 0.2 Baso # (Auto) 0.1 Immature Gran # (Auto) 0.06 H Absolute Nucleated RBC 0.12 H Immature Gran % 1 H Nucleated RBC % 1 H Sodium 132 L Potassium 3.2 L D Chloride 94 L Carbon Dioxide 28.3 Anion Gap 10 BUN 38 H Creatinine 1.6 H Estim Creat Clear Calc 45.7 L eGFR 48 L BUN/Creatinine Ratio 24 H Glucose 91 Calculated Osmolality 273 L Calcium 7.9 L Corrected Calcium 8.5 Phosphorus 3.5 Magnesium 2.0 Total Bilirubin 1.9 H AST 383 H ALT 332 H Alkaline Phosphatase 111 Total Protein 6.3 Albumin 3.2 L Globulin 3.1 Albumin/Globulin Ratio 1.0 L ABG Interpretation ABG results: 07/11/24 07/11/24 07/11/24 10:01 10:30 14:38 ABG pH 7.15 L* 7.15 L* 7.28 L D ABG pCO2 29 L 30 L 38 ABG pO2 50 L* 47 L* 83 D ABG HCO3 10 L 11 L 18 L ABG O2 Saturation 72 L 68 L 95 ABG Base Excess -17 L -17 L -8 L 07/12/24 10:25 ABG pH 7.42 D ABG pCO2 39 ABG pO2 69 L ABG HCO3 25 ABG O2 Saturation 94 ABG Base Excess 1 Quality Measures Quality Measures none Assessment & Plan Assessment Current Active Medications: Generic Name Dose Route Start Last Admin Trade Name Freq PRN Reason Stop Dose Admin Acetaminophen 650 mg 07/11/24 11:19 Acetaminophen 325 Mg Tablet PO 08/10/24 11:18 Q6H PRN Fever >101.5 Amiodarone HCl 200 mg 07/13/24 09:00 07/16/24 09:34 Amiodarone Hcl 200 Mg Tablet PO 08/12/24 08:59 200 mg BID JANETTE Administration Aspirin 81 mg 07/12/24 09:00 07/16/24 09:34 Aspirin Ec 81 Mg Tabec PO 08/11/24 08:59 81 mg QDAY JANETTE Administration Bumetanide 2 mg 07/17/24 09:00 Bumetanide 0.5 Mg Tablet PO 08/16/24 08:59 QDAY JANETTE Dextrose 25 ml 07/11/24 11:15 07/11/24 18:45 Dextrose 50%-Water Inj 50 Ml Syringe IV 08/10/24 11:14 25 ml Q15MIN PRN Administration BG 50-70 responsive npo pt Dextrose 50 ml 07/11/24 11:15 07/11/24 13:29 Dextrose 50%-Water Inj 50 Ml Syringe IV 08/10/24 11:14 50 ml Q15MIN PRN Administration BG <50 OR BG <70 & pt unresponsive Glucagon 1 mg 07/15/24 14:38 Glucagon Inj 1 Mg Vial IM Q15MIN PRN BG <70, and no IV access Heparin Sodium (Porcine) 5,000 unit 07/15/24 22:00 07/16/24 14:56 Heparin Sod Inj 5000 Unit/Ml Vial SC 07/28/24 13:59 5,000 unit Q8HR JANETTE Administration Hydralazine HCl 50 mg 07/12/24 09:45 07/16/24 09:34 Hydralazine Hcl 25 Mg Tablet PO 08/11/24 09:44 50 mg BID JANETTE Administration Doxycycline Hyclate 100 mg/ 100 mls @ 100 mls/hr 07/13/24 21:00 07/16/24 09:33 Sodium Chloride IV 07/20/24 20:59 100 mls/hr BID JANETTE Administration Oseltamivir Phosphate 30 mg 07/12/24 21:00 07/16/24 09:34 Oseltamivir 30 Mg Capsule PO 07/17/24 20:59 30 mg BID JANETTE Administration Sennosides 1 tab 07/11/24 11:19 Senna Tablet PO 08/10/24 11:18 QDAY PRN constipation Protocol Plan Patient is a 64-year-old male with past medical history of HFrEF (EF 20 to 25% on May 2024), dilated cardiomyopathy, hypertension, hyperlipidemia, chronic left foot osteomyelitis, hepatitis C, cholelithiasis, substance abuse (methamphetamine), and homelessness was admitted to the ICU on 07/11/2024 due to high suspicion of cardiogenic shock, NSTEMI type I, and CHF exacerbation. Patient was downgraded to medical floors on 07/14/2024. Acute Hypoxic Respiratory Failure secondary to Acute compensated heart failure exacerbation, HFrEF (EF 20 to 25% on 06/2024) Dilated cardiomyopathy ? Patient came in with bilateral lower extremity swelling as well as worsening shortness of breath on admission echo on May 2024 showed EF of 20 to 25% ? It was noted on telemetry that patient had multiple episodes of PVCs as well as asymptomatic V. tach. ? Arrhythmias most likely in the setting of HFrEF along with polysubstance abuse ? 06/2024 Echo : HFrEF ejection fraction 20 to 25% on May 2024, dilated cardiomyopathy Plan: ? Continue Bumex 2 mg IV -> PO daily in preparation for DC ? Continue amiodarone 200 Mg twice daily ? Stopped carvedilol, per cardio ? Keep potassium magnesium above 4 and 2 respectively to avoid any further arrhythmias ? Fluid restrictions ? Strict GABRIELLE's ? Daily weights ? Cardiology consulted, appreciate commendations Influenza pneumonia ? Patient came in with shortness of breath ? Chest x-ray did show pneumonia ? Patient tested positive for influenza Plan: ? Continue Tamiflu 30 mg (renally dosed) twice daily [07/12/2024- ? Continue doxycycline 100 mg twice daily [07/13/2024? Congestive hepatopathy Transaminitis Hyperbilirubinemia Hx of hepatitis C ? T bilirubin 2.7, AST 764, ALT 142, and alkaline phosphatase 137 --> T bilirubin 1.8, AST 613, ALT 450 ; improving ? mostly in the setting of CHF exacerbation, fluid overload status ? Patient has no right upper quadrant pain ? Liver ultrasound : fatty liver Plan: ? Continue to monitor, likely due to CHF exacerbation - Recommend outpatient monitoring GEOVANY ? Patient came in initially with creatinine of 2.9 ? Baseline creatinine around 1.2-1.3 ? Mostly prerenal in the setting of fluid overload status and CHF exacerbation ? Creatinine today was 1.8 Plan: ? Continue diuresing ? Avoid nephrotoxic agents ? Renal dose medication NSTEMI ? Patient had been seen in our ER prior to admission and he came in with complaints of chest pain ? Troponins peaked at 10.469 --> down trended to 7.607 Plan: ? Patient completed heparin drip 48 hours as per ACS protocol ? Cardiology consulted, appreciate recommendations ? Continue monitor x 24 hours more then DC Chronic left foot osteomyelitis ?Patient had osteomyelitis of foot since 2022 ?Foot x-ray showed osteomyelitis of the distal left first metatarsal and base proximal phalanx of first digit Plan: ?Continue patient's doxycycline IV [?] Hx of hypertension Hx of hyperlipidemia ?Stopped carvedilol 3.125 twice daily by cardio - Continue hydralazine 50 mg twice daily ? Holding atorvastatin in the setting of transaminitis Health maintenance: Disposition: Discharge after 24 hour observation for troponinemia (10 -> 7) Diet: Cardiac diet GI prophylaxis: not indicated DVT prophylaxis: Heparin sc Code: Full code Plan of care discussed with attending Christopher Leal M.D. PGY2
[2024-07-17] VITALS (10 sets, daily range): BP systolic 110–128; BP diastolic 77–86; PULSE 64–78; RESP 16–97; TEMP 36.2–36.6; O2SAT 93–100
--- NOTE | 2024-07-17 02:53 | ESPR_ITS ---
RE: MIGUELITO LEON : 1960 DATE OF SERVICE: 07/16/2024 ROOM: 350 SUBJECTIVE: Miguelito Leon is a 64-year-old male with a history of nonischemic cardiomyopathy, methamphetamine drug abuse. He came to the hospital with acute respiratory failure. Once again, he extubated, transferred to [facility] floor, continues to improve. He is still on oral diuretic 2 mg twice daily. Coreg was discontinued. The patient remains stable blood pressure pickard. Not complaining of any significant chest pain or shortness of breath. OBJECTIVE: Vital Signs: Blood pressure 119/80. Pulse rate 70. Respiratory rate 18. Temperature normal. Neck: Supple. Lungs: Decreased breath sounds. No rales. Heart: S1, S2, distant. Abdomen: Abdomen is thin and soft. Extremities: Mild edema. LABORATORY DATA: His lab data showed his BUN is stable at 38/1.6, slightly elevated. Electrolytes are unremarkable. CBC is normal. IMPRESSION: 1. The patient with acute on chronic systolic heart failure. 2. Elevated troponin, type 2 troponin, due to methamphetamine active use and methamphetamine toxicity, toxic myocarditis. 3. Hepatitis C with elevated bilirubin. 4. Influenza pneumonia. 5. Acute kidney injury. RECOMMENDATIONS: Continue current medications. I do not see any plan for angiogram as the patient's clinical picture does not support any acute coronary syndrome. DT: 00:13:40 TT: 02:52:00 Ref: [id number] - TID: [id number]
[2024-07-17] MEDS: HEPARIN SOD INJ 5000 UNIT/ML VIAL SC (06:06)
[2024-07-17 06:09] LABS: Basophils # (Auto) 0.1 Thou/mm3 (0.0-0.2); Basophils % (Auto) 1 % (0-2.5); Eosinophils # (Auto) 0.3 Thou/mm3 (0.0-0.5); Eosinophils % (Auto) 3 % (0-10); Hematocrit 36.2 % (41.0-53.0); Immature Granulocytes % (Auto) 1 % (0-0); Immature Granulocytes Auto 0.09 Thou/mm3 (0.00-0.00); Lymphocytes # (Auto) 1.2 Thou/mm3 (1.0-4.8); Lymphocytes % (Auto) 10 % (10-50); Mean Corpuscular HGB Conc 33.1 g/dl (31.0-37.0); Mean Corpuscular Hemoglobin 26.5 pg (25.0-35.0); Mean Corpuscular Volume 80 fL (80-100); Monocytes # (Auto) 1.5 Thou/mm3 (0.0-0.8); Monocytes % (Auto) 13 % (0-12); Neutrophils # (Auto) 8.6 Thou/mm3 (1.8-7.7); Neutrophils % (Auto) 74 % (37-80); Nucleated Red Blood Cell # 0.06 Thou/mm3 (0.00-0.00); Nucleated Red Blood Cell % 1 /100 WBC (0); Red Blood Count 4.52 Miln/mm3 (4.50-5.90); White Blood Count 11.7 Thou/mm3 (3.8-10.6)
[2024-07-17 06:19] LABS: Platelet Count 49 Thou/mm3 (140-440)
[2024-07-17 06:21] LABS: Slide Review Platelets confirmed
[2024-07-17 06:35] LABS: Alanine Aminotransferase 279 U/L (10-49); Albumin, Serum 3.2 gm/dL (3.4-4.8); Alkaline Phosphatase 114 U/L (46-116); Anion Gap 10 (7-16); Aspartate Amino Transferase 247 U/L (0-34); BUN/Creatinine Ratio 21 Ratio (12-20); Bilirubin,Total 1.7 mg/dL (0.3-1.2); Blood Urea Nitrogen 32 mg/dL (9-23); Calcium 7.9 mg/dL (8.3-10.6); Calcium (Corrected) 8.5 mg/dL (8.5-10.1); Carbon Dioxide 26.8 mMol/L (20.0-31.0); Chloride 96 mMol/L (98-107); Creatinine (Component) 1.5 mg/dL (0.6-1.3); Globulin 3.3 gm/dL (2.3-3.5); Glucose 95 mg/dL (74-106); Magnesium 1.8 mg/dL (1.6-2.6); Osmolality,Calculated 273 (275-295); Phosphorous 2.8 mg/dL (2.4-5.1); Potassium 3.2 mMol/L (3.4-5.1); Sodium 133 mMol/L (136-145); Total Protein 6.5 gm/dL (5.7-8.2); eGFR 52 See Note
[2024-07-17] MEDS: Magnesium Sulfate 2 GM Ivpb 2 GM/50 ML BAG IV (09:51)
[2024-07-17] MEDS: DOXYCYCLINE INJ 100 MG in SODIUM CHLORIDE 0.9% (P) 100 ML IV ×2 (09:51→20:37)
[2024-07-17] MEDS: BUMETANIDE 0.5 MG TABLET 2 MG PO (09:52)
[2024-07-17] MEDS: POTASSIUM CHLORIDE 20 mEq TABCR 40 MEQ PO (09:52)
[2024-07-17] MEDS: AMIODARONE HCL 200 MG TABLET PO ×2 (09:52→20:36)
[2024-07-17] MEDS: ASPIRIN EC 81 MG TABEC PO (09:53)
[2024-07-17] MEDS: OSELTAMIVIR 30 MG CAPSULE PO (09:53)
[2024-07-17] MEDS: hydrALAZINE HCL 25 MG TABLET 50 MG PO ×2 (09:55→20:36)
--- NOTE | 2024-07-17 12:12 | XR_ITS ---
Examination: Duplex scan of the upper extremity, unilateral right Date and time of exam: July 17, 2024 1402 hrs. Indications: Right arm redness swelling and pain beginning 4 days ago Technique: Duplex scan of the extremity veins using B-mode/grayscale imaging and Doppler spectral analysis and color flow Attention is directed to internal echogenicity, compression and augmentation involving these veins, color flow assessment, spectral analysis Findings: Positive for nonocclusive acute DVT in the right brachial vein Jugular subclavian axillary radial and ulnar veins are open Impression: Positive for nonocclusive acute DVT brachial vein
--- NOTE | 2024-07-17 17:14 | ESPR_ITS ---
<Statement entered by Guerrero Araiza MD - 07/22/24 16:21> I reviewed above note and agree with findings and plans. I have also personally examined the patient with medicine team and went over assessment and plan with medical team including restaurant management internship and resident physician. Documentation for date of: 07/17/24 Subjective Subjective Interval history: Patient was seen and examined at bedside. No acute overnight events. In the morning he is heparin was held due to worsening thrombocytopenia, PLT 49. Patient was planned for discharge today however was found to have significant tenderness and swelling over his right upper extremity, ultrasound was ordered showing nonocclusive thrombi in brachial vein. Given high bleeding risk and thrombocytopenia will monitor for now. Exam Vital Signs Temp Pulse Resp BP Pulse Ox O2 Del Method O2 Flow Rate 97.9 F 64 16 113/77 100 Room Air 3 07/17/24 16:00 07/17/24 16:00 07/17/24 16:00 07/17/24 16:00 07/17/24 16:00 07/17/24 16:00 07/16/24 16:18 FiO2 50 07/12/24 08:02 Narrative Exam Gen: Well-developed male. HEENT: NCAT, PERRLA, EOMI, MMM, anicteric conjunctivae, poor dentition. CVS: normal S1 and S2. RRR. No M/R/G. Resp: CTA B/L. No rhonchi, rales, crackles or wheezing. Abd: soft, non-tender, non-distended. BS+ in all 4 quadrants. MSK: Good ROM in BUE & BLE. No edema or rash. Neuro: CN II-XII grossly intact. Strength 5/5 in BUE & BLE. Alert and oriented x3. Psych: appropriate mood and affect. Objective Labs 07/18/24 05:08 07/18/24 05:08 Labs: Laboratory Results - last 24 hr 07/17/24 05:05 WBC 11.7 H RBC 4.52 Hgb 12.0 L Hct 36.2 L MCV 80 MCH 26.5 MCHC 33.1 RDW Std Deviation 53.0 H Plt Count 49 L D Neut % (Auto) 74 Lymph % (Auto) 10 [place] % (Auto) 13 H Eos % (Auto) 3 Baso % (Auto) 1 Neut # (Auto) 8.6 H Lymph # (Auto) 1.2 [place] # (Auto) 1.5 H Eos # (Auto) 0.3 Baso # (Auto) 0.1 Immature Gran # (Auto) 0.09 H Absolute Nucleated RBC 0.06 H Immature Gran % 1 H Nucleated RBC % 1 H Sodium 133 L Potassium 3.2 L Chloride 96 L Carbon Dioxide 26.8 Anion Gap 10 BUN 32 H Creatinine 1.5 H Estim Creat Clear Calc 70.0 eGFR 52 L BUN/Creatinine Ratio 21 H Glucose 95 Calculated Osmolality 273 L Calcium 7.9 L Corrected Calcium 8.5 Phosphorus 2.8 Magnesium 1.8 Total Bilirubin 1.7 H AST 247 H ALT 279 H Alkaline Phosphatase 114 Total Protein 6.5 Albumin 3.2 L Globulin 3.3 Albumin/Globulin Ratio 1.0 L Misc Test Result Platelets confirmed ABG Interpretation ABG results: 07/11/24 07/11/24 07/11/24 10:01 10:30 14:38 ABG pH 7.15 L* 7.15 L* 7.28 L D ABG pCO2 29 L 30 L 38 ABG pO2 50 L* 47 L* 83 D ABG HCO3 10 L 11 L 18 L ABG O2 Saturation 72 L 68 L 95 ABG Base Excess -17 L -17 L -8 L 07/12/24 10:25 ABG pH 7.42 D ABG pCO2 39 ABG pO2 69 L ABG HCO3 25 ABG O2 Saturation 94 ABG Base Excess 1 Quality Measures Quality Measures none Assessment & Plan Assessment Current Active Medications: Generic Name Dose Route Start Last Admin Trade Name Freq PRN Reason Stop Dose Admin Acetaminophen 650 mg 07/11/24 11:19 Acetaminophen 325 Mg Tablet PO 08/10/24 11:18 Q6H PRN Fever >101.5 Amiodarone HCl 200 mg 07/13/24 09:00 07/17/24 09:52 Amiodarone Hcl 200 Mg Tablet PO 08/12/24 08:59 200 mg BID JANETTE Administration Aspirin 81 mg 07/12/24 09:00 07/17/24 09:53 Aspirin Ec 81 Mg Tabec PO 08/11/24 08:59 81 mg QDAY JANETTE Administration Bumetanide 2 mg 07/17/24 09:00 07/17/24 09:52 Bumetanide 0.5 Mg Tablet PO 08/16/24 08:59 2 mg QDAY JANETTE Administration Dextrose 25 ml 07/11/24 11:15 07/11/24 18:45 Dextrose 50%-Water Inj 50 Ml Syringe IV 08/10/24 11:14 25 ml Q15MIN PRN Administration BG 50-70 responsive npo pt Dextrose 50 ml 07/11/24 11:15 07/11/24 13:29 Dextrose 50%-Water Inj 50 Ml Syringe IV 08/10/24 11:14 50 ml Q15MIN PRN Administration BG <50 OR BG <70 & pt unresponsive Glucagon 1 mg 07/15/24 14:38 Glucagon Inj 1 Mg Vial IM Q15MIN PRN BG <70, and no IV access Hydralazine HCl 50 mg 07/12/24 09:45 07/17/24 09:55 Hydralazine Hcl 25 Mg Tablet PO 08/11/24 09:44 50 mg BID JANETTE Administration Doxycycline Hyclate 100 mg/ 100 mls @ 100 mls/hr 07/13/24 21:00 07/17/24 09:51 Sodium Chloride IV 07/20/24 20:59 100 mls/hr BID JANETTE Administration Oseltamivir Phosphate 30 mg 07/12/24 21:00 07/17/24 09:53 Oseltamivir 30 Mg Capsule PO 07/17/24 20:59 30 mg BID JANETTE Administration Sennosides 1 tab 07/11/24 11:19 Senna Tablet PO 08/10/24 11:18 QDAY PRN constipation Protocol Plan Patient is a 64-year-old male with past medical history of HFrEF (EF 20 to 25% on May 2024), dilated cardiomyopathy, hypertension, hyperlipidemia, chronic left foot osteomyelitis, hepatitis C, cholelithiasis, substance abuse (methamphetamine), and homelessness was admitted to the ICU on 07/11/2024 due to high suspicion of cardiogenic shock, NSTEMI type I, and CHF exacerbation. Patient was downgraded to medical floors on 07/14/2024. #Acute Hypoxic Respiratory Failure. #Acute compensated heart failure exacerbation, HFrEF (EF 20 to 25% on 06/2024). #Dilated cardiomyopathy. ? Patient came in with bilateral lower extremity swelling as well as worsening shortness of breath on admission echo on May 2024 showed EF of 20 to 25%. ? It was noted on telemetry that patient had multiple episodes of PVCs as well as asymptomatic V. tach. ? Arrhythmias most likely in the setting of HFrEF along with polysubstance abuse. ? 06/2024 Echo : HFrEF ejection fraction 20 to 25% on May 2024, dilated cardiomyopathy. Plan: ? Continue Bumex 2 mg PO daily. ? Continue amiodarone 200 Mg twice daily. ? Stopped carvedilol, per cardio. ? Keep potassium magnesium above 4 and 2 respectively to avoid any further arrhythmias. ? Fluid restrictions. ? Strict GABRIELLE's. ? Daily weights. ? Cardiology consulted, appreciate commendations. #Influenza pneumonia. ? Patient came in with shortness of breath. ? Chest x-ray did show pneumonia. ? Patient tested positive for influenza. Plan: ? completed Tamiflu 30 mg (renally dosed) twice daily [07/12/2024-07/17/2024] ? Continue doxycycline 100 mg twice daily [07/13/2024? #DVT RUE. -found to have tenderness and swelling over right forearm. -US was Positive for nonocclusive acute DVT brachial vein. Plan: -warm compress. -continue to monitor, no AC due to high bleeding risk and thrombocytopenia. #Congestive hepatopathy. #Transaminitis. #Hyperbilirubinemia. #Hx of hepatitis C. ? T bilirubin 2.7, AST 764, ALT 142, and alkaline phosphatase 137 --> T bilirubin 1.8, AST 613, ALT 450; improving. ? mostly in the setting of CHF exacerbation, fluid overload status. ? Patient has no right upper quadrant pain. ? Liver ultrasound : fatty liver. Plan: ? Continue to monitor, likely due to CHF exacerbation. - Recommend outpatient monitoring. #Worsening thrombocytopenia. -PLT 140 -> 49 today. Plan: -hold heparin. #GEOVANY. ? Patient came in initially with creatinine of 2.9. ? Baseline creatinine around 1.2-1.3. ? Mostly prerenal in the setting of fluid overload status and CHF exacerbation. ? Creatinine today was 1.8. Plan: ? Continue diuresing. ? Avoid nephrotoxic agents. ? Renal dose medication. #NSTEMI. ? Patient had been seen in our ER prior to admission and he came in with complaints of chest pain. ? Troponins peaked at 10.469 --> down trended to 7.607. Plan: ? Patient completed heparin drip 48 hours as per ACS protocol. ? Cardiology consulted, appreciate recommendations. ? Continue monitor x 24 hours more then DC. #Chronic left foot osteomyelitis. ?Patient had osteomyelitis of foot since 2022. ?Foot x-ray showed osteomyelitis of the distal left first metatarsal and base proximal phalanx of first digit. Plan: ?Continue patient's doxycycline IV [?]. #Hx of hypertension. #Hx of hyperlipidemia. ? Stopped carvedilol 3.125 twice daily by cardio - Continue hydralazine 50 mg twice daily ? Holding atorvastatin in the setting of transaminitis Health maintenance: Disposition: discharge held due to new RUE DVT. Diet: Cardiac diet. GI prophylaxis: not indicated. DVT prophylaxis: Heparin sc. Code: Full code. Plan of care discussed with attending Dr. Araiza. Eber Richard MD, PGY 2. Disclaimer: This note was dictated by speech recognition. Minor errors in child and adolescent psychologist may be present due to voice recognition software.
[2024-07-18] VITALS: BP 112/73; PULSE 68; RESP 17; TEMP 36.6; O2SAT 97
[2024-07-18 04:00] VITALS: BP 122/91; PULSE 69; RESP 17; TEMP 36.7; O2SAT 99
[2024-07-18 06:24] LABS: Basophils # (Auto) 0.1 Thou/mm3 (0.0-0.2); Basophils % (Auto) 1 % (0-2.5); Eosinophils # (Auto) 0.5 Thou/mm3 (0.0-0.5); Eosinophils % (Auto) 4 % (0-10); Hematocrit 35.8 % (41.0-53.0); Hemoglobin 11.9 g/dL (13.5-16.0); Immature Granulocytes % (Auto) 1 % (0-0); Immature Granulocytes Auto 0.09 Thou/mm3 (0.00-0.00); Lymphocytes # (Auto) 1.5 Thou/mm3 (1.0-4.8); Lymphocytes % (Auto) 13 % (10-50); Mean Corpuscular HGB Conc 33.2 g/dl (31.0-37.0); Mean Corpuscular Hemoglobin 26.6 pg (25.0-35.0); Mean Corpuscular Volume 80 fL (80-100); Monocytes # (Auto) 1.2 Thou/mm3 (0.0-0.8); Monocytes % (Auto) 10 % (0-12); Neutrophils # (Auto) 8.1 Thou/mm3 (1.8-7.7); Neutrophils % (Auto) 71 % (37-80); Nucleated Red Blood Cell # 0.03 Thou/mm3 (0.00-0.00); Nucleated Red Blood Cell % 0 /100 WBC (0); RDW Standard Deviation 53.9 fL (35.1-43.9); Red Blood Count 4.48 Miln/mm3 (4.50-5.90); White Blood Count 11.4 Thou/mm3 (3.8-10.6)
[2024-07-18 06:49] LABS: Alanine Aminotransferase 225 U/L (10-49); Albumin, Serum 3.4 gm/dL (3.4-4.8); Albumin/Globulin Ratio 1.1 (1.2-2.2); Alkaline Phosphatase 126 U/L (46-116); Anion Gap 10 (7-16); Aspartate Amino Transferase 157 U/L (0-34); BUN/Creatinine Ratio 21 Ratio (12-20); Bilirubin,Total 1.4 mg/dL (0.3-1.2); Blood Urea Nitrogen 30 mg/dL (9-23); Calcium 8.1 mg/dL (8.3-10.6); Calcium (Corrected) 8.6 mg/dL (8.5-10.1); Carbon Dioxide 29.3 mMol/L (20.0-31.0); Chloride 96 mMol/L (98-107); Creatinine (Component) 1.4 mg/dL (0.6-1.3); Estimated Creatinine Clearance 49.5 mL/min (>60); Globulin 3.1 gm/dL (2.3-3.5); Glucose 75 mg/dL (74-106); Magnesium 1.7 mg/dL (1.6-2.6); Osmolality,Calculated 275 (275-295); Phosphorous 3.7 mg/dL (2.4-5.1); Potassium 3.6 mMol/L (3.4-5.1); Sodium 135 mMol/L (136-145); Total Protein 6.5 gm/dL (5.7-8.2); eGFR 56 See Note
[2024-07-18 07:00] LABS: Platelet Count 100 Thou/mm3 (140-440)
[2024-07-18 08:00] VITALS: BP 121/77; PULSE 69; RESP 18; TEMP 36.3; O2SAT 100
--- NOTE | 2024-07-18 08:16 | PC.NURSE ---
Patient wants to take nelson catheter and IV out and leave against medical advise, tried to convince to comply with plan off care, risk of discontinuing treatment, including severe sickness and .. Patient refuse to listen, insist on leaving. Patient is alert and orient X4, signed AMA form, called and made Lo aware.
--- NOTE | 2024-07-18 10:31 | PC.NURSE ---
Patient left with all belongings at 1588
--- NOTE | 2024-07-18 15:24 | EVENTNT_ITS ---
<Statement entered by Guerrero Araiza MD - 07/26/24 11:48> I reviewed above note and agree with findings and plans. I have also personally examined the patient with medicine team and went over assessment and plan with medical team including corporate strategy intern and resident physician. Documentation for date of: 07/18/24 Event Note Event Note: On 07/18/2024 approximately at 8 AM patient endorsed to leave AMA from the hospital, stated he does not need anymore care and is feeling fine. He was explained of all the risks leaving AGAINST MEDICAL ADVICE including potential . Patient endorsed understanding and decided to proceed with AMA. AMA form was signed. Approximately at 8:30 AM he left with his belongings. Plan of care discussed with attending Dr. Araiza. Eber Richard MD, PGY 2. Disclaimer: This note was dictated by speech recognition. Minor errors in sales professional may be present due to voice recognition software.
== END 2024-07-18 08:24 | disposition left against medical advice (07) | DRG 194 ==
LOC: SERX 11:02 → SERHOLD 11:37 → S2SX 13:51 → S3NX 07-14 19:59
PROVIDERS: Nurse Practitioner Primary Care; Student in an Organized Health Care Education/Training Program; Admitting Provider Internal Medicine; Emergency Provider Emergency Medicine; Visit Provider Internal Medicine
DX: I13.0 Hypertensive heart and chronic kidney disease with heart failure and stage 1 through stage 4 chronic kidney disease, or unspecified chronic kidney disease (principal); I42.0 Dilated cardiomyopathy; E87.5 Hyperkalemia; Y90.0 Blood alcohol level of less than 20 mg/100 ml; I50.23 Acute on chronic systolic (congestive) heart failure; J96.01 Acute respiratory failure with hypoxia; N17.9 Acute kidney failure, unspecified; B19.20 Unspecified viral hepatitis C without hepatic coma; Z59.00 Homelessness unspecified; K76.1 Chronic passive congestion of liver; E87.1 Hypo-osmolality and hyponatremia; E83.41 Hypermagnesemia; E87.4 Mixed disorder of acid-base balance; D68.9 Coagulation defect, unspecified; D69.6 Thrombocytopenia, unspecified; G93.40 Encephalopathy, unspecified; R57.0 Cardiogenic shock; J96.02 Acute respiratory failure with hypercapnia; J10.01 Influenza due to other identified influenza virus with the same other identified influenza virus pneumonia; K40.90 Unilateral inguinal hernia, without obstruction or gangrene, not specified as recurrent; M86.672 Other chronic osteomyelitis, left ankle and foot; F15.10 Other stimulant abuse, uncomplicated; E16.2 Hypoglycemia, unspecified; F10.10 Alcohol abuse, uncomplicated; E83.39 Other disorders of phosphorus metabolism; I21.A1 Myocardial infarction type 2; I50.82 Biventricular heart failure; I08.1 Rheumatic disorders of both mitral and tricuspid valves; E03.9 Hypothyroidism, unspecified; E78.5 Hyperlipidemia, unspecified; K76.0 Fatty (change of) liver, not elsewhere classified; N18.30 Chronic kidney disease, stage 3 unspecified; D63.1 Anemia in chronic kidney disease; I73.9 Peripheral vascular disease, unspecified; F12.10 Cannabis abuse, uncomplicated; E87.6 Hypokalemia; I82.621 Acute embolism and thrombosis of deep veins of right upper extremity; Z86.718 Personal history of other venous thrombosis and embolism; Z91.148 Patient's other noncompliance with medication regimen for other reason; Z53.29 Procedure and treatment not carried out because of patient's decision for other reasons
CPT/HCPCS: 36415; 36600; 71045; 73620; 76705; 80048; 80053; 80061; 80074; 80307; 80320; 81001; 82010; 82803; 83605; 83735; 83880; 84100; 84132; 84145; 84439; 84443; 84484; 85025; 85049; 85379; 85610; 85652; 85730; 86140; 87040; 87081; 87205; 87400; 87811; 93005; 93225; 93306; 93970; 93971; 94660; 96374; 96375; 99291; J0283; J0360; J0612; J0696; J1643; J1644; J1815; J1940; J2270; J2470; J2543; J3370; J3475; J3490; J7050; A9270; G0480

== ENCOUNTER 2024-07-21 20:31 | Emergency (ER) | payer MEDICAID, SELFPAY ==
[2024-07-21 20:34] VITALS: PULSE 82; RESP 18; O2SAT 98
[2024-07-21 21:29] VITALS: BP 121/86; PULSE 87; RESP 18; TEMP 36.9; O2SAT 99; BMI 29.1
--- NOTE | 2024-07-21 21:43 | PD.EDRME ---
Rapid Medical Screening Exam RME Arrival date/time: 07/21/24 20:31 37M with history of CHF EF 15 to 20%, chronic left ventricle thrombus, methamphetamine use, dilated cardiomyopathy 2/2 meth use, history of hep C, chronic left foot osteomyelitis, hypertension, hyperlipidemia, medical noncompliance and homelessness presents to ED with 2 hours of upper ab pain. Patient was recently admitted and signed out AMA to do meth. Chief Complaint: Abdominal Pain Vital signs: Vital Signs Temperature 98.5 F 07/21/24 21:29 Pulse Rate 87 07/21/24 21:29 Respiratory Rate 18 07/21/24 21:29 Blood Pressure 121/86 H 07/21/24 21:29 Pulse Oximetry (%) 99 07/21/24 21:29 Oxygen Delivery Method Room Air 07/21/24 21:29
[2024-07-21 22:18] LABS: Basophils # (Auto) 0.1 Thou/mm3 (0.0-0.2); Basophils % (Auto) 1 % (0-2.5); Eosinophils % (Auto) 0 % (0-10); Hematocrit 36.4 % (41.0-53.0); Immature Granulocytes % (Auto) 1 % (0-0); Immature Granulocytes Auto 0.06 Thou/mm3 (0.00-0.00); Lymphocytes # (Auto) 0.6 Thou/mm3 (1.0-4.8); Lymphocytes % (Auto) 6 % (10-50); Mean Corpuscular Hemoglobin 27.3 pg (25.0-35.0); Mean Corpuscular Volume 83 fL (80-100); Monocytes # (Auto) 0.6 Thou/mm3 (0.0-0.8); Monocytes % (Auto) 6 % (0-12); Neutrophils # (Auto) 8.4 Thou/mm3 (1.8-7.7); Neutrophils % (Auto) 86 % (37-80); Nucleated Red Blood Cell % 0 /100 WBC (0); RDW Standard Deviation 57.1 fL (35.1-43.9); White Blood Count 9.8 Thou/mm3 (3.8-10.6)
[2024-07-21 22:27] LABS: Ammonia 12 uMol/L (11-32)
[2024-07-21 22:33] LABS: Alanine Aminotransferase 127 U/L (10-49); Albumin, Serum 3.9 gm/dL (3.4-4.8); Albumin/Globulin Ratio 1.1 (1.2-2.2); Alkaline Phosphatase 147 U/L (46-116); Anion Gap 11 (7-16); Aspartate Amino Transferase 48 U/L (0-34); BUN/Creatinine Ratio 20 Ratio (12-20); Bilirubin,Total 1.5 mg/dL (0.3-1.2); Blood Urea Nitrogen 30 mg/dL (9-23); Calcium 8.6 mg/dL (8.3-10.6); Calcium (Corrected) 8.7 mg/dL (8.5-10.1); Carbon Dioxide 24.1 mMol/L (20.0-31.0); Chloride 101 mMol/L (98-107); Creatinine (Component) 1.5 mg/dL (0.6-1.3); Estimated Creatinine Clearance 48.9 mL/min (>60); Globulin 3.5 gm/dL (2.3-3.5); Glucose 83 mg/dL (74-106); Lipase 136 U/L (12-53); Osmolality,Calculated 277 (275-295); Potassium 4.4 mMol/L (3.4-5.1); Sodium 136 mMol/L (136-145); Total Protein 7.4 gm/dL (5.7-8.2); eGFR 52 See Note
[2024-07-21 22:42] LABS: Troponin I 0.164 ng/mL (0.0-0.045)
[2024-07-21 22:46] LABS: Platelet Count 303 Thou/mm3 (140-440)
--- NOTE | 2024-07-22 03:12 | EDNOTE_ITS ---
ED Abdominal Pain RME/HPI General Chief Complaint: Abdominal Pain Stated complaint: ABD PAIN Arrival date/time: 07/21/24 20:31 RME / HPI RME / HPI narrative: 07/21/24 20:31 37M with history of CHF EF 15 to 20%, chronic left ventricle thrombus, methamphetamine use, dilated cardiomyopathy 2/2 meth use, history of hep C, chronic left foot osteomyelitis, hypertension, hyperlipidemia, medical noncompliance and homelessness presents to ED with 2 hours of upper ab pain. Patient was recently admitted and signed out AMA to do meth. ----- Dr. Rodriguez?s Main ED Evaluation: 64yo male presents to the ED for a chief com plaint of abdominal pain. Evidently, upon arrival to the ED earlier tonight, patient complained of epigastric pain. He endorses drinking alcohol tonight. At the time of my evaluation, patient does not have any medical complaints. He states he feels like his usual self. He denies any N/V/D, fever, chills or any other associated symptoms. No known allergies. PMHx: HFrEF EF 20 to 25%, May 2024, dilated cardiomyopathy, hypertension, hyperlipidemia, chronic left foot osteomyelitis, hepatitis C, cirrhosis, cholelithiasis, methamphetamine use and homelessness Related Data Previous Rx's ?Medication ?Instructions ?Recorded apixaban 2.5 mg tablet (Eliquis) 5 mg (2 x 2.5 mg) PO BID #60 tabs 06/22/24 aspirin 81 mg tablet,delayed 81 mg PO QDAY 30 days #30 tabs 06/22/24 release (Ecotrin Low Strength) atorvastatin 40 mg tablet 40 mg PO HS 30 days #30 tabs 06/22/24 bumetanide 1 mg tablet 1 mg PO BID 30 days #60 tabs 06/22/24 ceftriaxone 2 gram solution for 2 g IV QDAY #40 ea 02/06 injection doxycycline hyclate 100 mg capsule 100 mg PO BID #80 c aps 06/22/24 metoprolol succinate 25 mg 25 mg PO QDAY 30 days #30 t abs 06/22/24 tablet,extended release 24 hr sacubitril 24 mg-valsartan 26 mg 1 tab PO BID #30 tabs 06/22/24 tablet (Entresto) amiodarone 200 mg tablet 200 mg PO BID 30 days #60 ta bs 07/14/24 potassium chloride 20 mEq oral 20 meq PO QDAY #30 ea 0 07/17/24 packet Allergies Allergy/AdvReac Type Severity Reaction Status Date / Time No Known Allergies Allergy Verified 06/11/24 12:46 Review of Systems Review of Systems Systems Reviewed: All systems reviewed, normal except as documented ED Exam Narrative Physical exam: GENERAL APPEARANCE: alert and oriented x 4, well-developed, well-nourished, no acute distress VITALS: All vitals were reviewed and the pulse ox is 99% on room air, which is normal according to my interpretation. HEENT: Normocephalic, atraumatic; pupils equal, round, reactive to light; EOMI; mucous membranes pink, moist; oropharynx clear NECK: Supple LUNGS: CTABL; no wheezes, no rales, no rhonchi HEART: Regular rate, regular rhythm; normal S1, S2; no murmurs ABDOMEN: non distended; normal BS; soft, no tenderness, no guarding, no rebound; no masses, no organomegaly, no hernia BACK: no CVA tenderness EXTREMITIES: atraumatic; no edema NEUROLOGIC: awake; alert and oriented x4; cranial nerves II-XII grossly intact; no focal sensory or motor deficits PSYCHIATRIC: appropriate mood and affect SKIN: warm, dry, normal color; no rashes Course Course Course Narrative: Patient refused EKG. Quality Measures none Orders Category Date Time Status EKG (ED ONLY) *Do not use* NOW Care 07/21/24 21:42 Active EKG (ED Only) Stat Exams 07/21/24 21:42 Ordered Ammonia Stat Lab 07/21/24 21:58 Completed CBC Stat Lab 07/21/24 21:58 Completed CMP [Comprehensive Metabolic Panel] Stat Lab 07/21/24 21:58 Completed Extra Blue Top for Platelet Routine Lab 07/21/24 21:58 Completed Lipase Stat Lab 07/21/24 21:58 Completed Troponin I Stat Lab 07/21/24 21:58 Completed Urinalysis, C/S if Indicated Stat Lab 07/21/24 21:42 Ordered Vital Signs Vital signs: Vital Signs Temperature 98.5 F 07/21/24 21:29 Pulse Rate 87 07/21/24 21:29 Respiratory Rate 18 07/21/24 21:29 Blood Pressure 121/86 H 07/21/24 21:29 Pulse Oximetry (%) 99 02/06/25 21:29 Oxygen Delivery Method Room Air 07/21/24 21:29 Abdominal Pain MDM MDM Narrative MDM Narrative:: Scribe Attestation: 07/22/24 Angela Frank am scribing for and in the presence of Dr. Rodriguez. Patient data External records reviewed:: [facility] previous records (Per chart review, patient was admitted here on 07/11/24 for GEOVANY.) Clinical information provided by:: patient Social determinants that could affect healthcare access:: alcohol use Patient has the following chronic illnesses:: HFrEF EF 20 to 25%, May 2024, dilated cardiomyopathy, hypertension, hyperlipidemia, chronic left foot osteomyelitis, hepatitis C, cholelithiasis, methamphetamine use and homelessness How is presenting disease/condition affected by chronic disease/condition?: uneffected by Evaluation data The following diagnostics were reviewed and interpreted by me:: lab results Lab and/or radiology exams considered but not ordered:: none Interpretation Summary: CBC is normal, Creatinine is 1.5, Total Bilirubin is at baseline at 1.5, LFTs are chronically elevated, troponin is chronically elevated at 0.164, according to my interpretation. Medications / Prescriptions Medications or Prescriptions considered but not ordered:: none Medication administrations:: none Consultations Consultation(s) initiated? (list below): No Diagnosis Differential diagnosis abdominal pain: pancreatitis, small bowel obstruction and other (gallbladder etiology, gastritis) Most likely diagnosis given after review of the tests above:: see below Admission Indicated Admission indicated?: not indicated Admission Request Was there a request for admission?: No Disposition Plan Disposition Plan: Discharge Discharge Attestation Discharge Attestation: The patient and all family members were given an opportunity to ask questions and understood the discharge instructions. Discharge instructions specifically effects, indications for sooner follow up or return to the emergency department, and the expected course of current diagnosis. Patient condition: Stable Discharge Plan Plan Patient Disposition: HOME (Self Care) Disposition Comment: Stable for discharge Patient condition on transfer: Stable Prescriptions/Referrals Prescriptions/Med Rec: No Action Eliquis 2.5 mg Tablet 5 mg PO BID Qty: 60 3RF atorvastatin 40 mg tablet 40 mg PO HS 30 Days Qty: 30 3RF bumetanide 1 mg tablet 1 mg PO BID 30 Days Qty: 60 3RF ceftriaxone 2 gram recon soln 2 g IV QDAY Qty: 40 0RF doxycycline hyclate 100 mg capsule 100 mg PO BID Qty: 80 0RF aspirin [Ecotrin Low Strength] 81 mg Tablet,Delayed Release (Dr/Ec) 81 mg PO QDAY 30 Days Qty: 30 3RF metoprolol succinate 25 mg Tablet Extended Release 24 Hr 25 mg PO QDAY 30 Days Qty: 30 3RF sacubitril-valsartan [Entresto] 24-26 mg Tablet 1 tab PO BID Qty: 30 3RF amiodarone 200 mg Tablet 200 mg PO BID 30 Days Qty: 60 2RF potassium chloride 20 mEq packet 20 meq PO QDAY Qty: 30 0RF Referrals: [facility], [facility] [Outside] - In 1 week Problem List Clinical Impression: Abdominal pain Patient/Caregiver Discharge Instructions Discharge Activity: activity as tolerated Diet Instructions: No restrictions Education Materials: Abdominal Pain Additional Instructions: Please return to the emergency department for any worsening or any further medical problems Otherwise you should follow-up with your primary care doctor or at the [facility] clinic within the next several days Print Language: Greenlandic Stand Alone Forms: Vera Award Info., Patient Portal Info Letter
--- NOTE | 2024-07-22 03:43 | PC.NURSE ---
pt refused EKG pt stated no i dont need one charge nurse and MD notified.
[2024-07-22 03:46] VITALS: BP 128/88; PULSE 94; RESP 18; TEMP 37.6; O2SAT 97
== END 2024-07-22 03:47 | disposition home or self-care (01) ==
PROVIDERS: Physician Assistant; Emergency Provider Emergency Medicine
DX: R10.13 Epigastric pain (principal); R79.89 Other specified abnormal findings of blood chemistry; I11.0 Hypertensive heart disease with heart failure; I50.22 Chronic systolic (congestive) heart failure; K74.60 Unspecified cirrhosis of liver; B19.20 Unspecified viral hepatitis C without hepatic coma; I42.0 Dilated cardiomyopathy; Z59.01 Sheltered homelessness; Z91.199 Patient's noncompliance with other medical treatment and regimen due to unspecified reason
CPT/HCPCS: 36415; 80053; 81001; 82140; 83690; 84484; 85025; 99283

== ENCOUNTER 2024-07-23 10:59 | Emergency (ER) | payer MEDICAID, SELFPAY ==
[2024-07-23] VITALS (12 sets, daily range): BP systolic 92–129; BP diastolic 69–93; PULSE 68–89; RESP 14–92; TEMP 36.5–37.1; O2SAT 65–99; BMI 28.1
--- NOTE | 2024-07-23 11:44 | XR_ITS ---
Examination: PA lateral chest 2 views Technique: Upright PA lateral chest 2 views Exam date and time: July 23, 2024 1254 hrs. Indications: Chest pain today Findings: Moderate enlargement cardiac contour Mild to moderate CHF with vascular congestion and perihilar edema Impression: Mild to moderate CHF Consider early pneumonia at the lung bases
--- NOTE | 2024-07-23 11:44 | EKG_ITS ---
[facility] Test Date: 2024-07-23 Pat Name: NELDA LEON Department: Room: - Gender: Male Chair Car Attendant: : 1960 Requested By: Jeimy Krause ([facility]) Esa Order Number: [id number] Reading MD: Jeimy Krause ([facility]) M Measurements Intervals Letha Rate: 68 P: 44 WI: 243 QRS: 36 QRSD: 122 T: 41 QT: 436 QTc: 464 Interpretive Statements SINUS RHYTHM WITH FIRST DEGREE AV BLOCK LEFT ATRIAL ENLARGEMENT [-0.15mV P-WAVE IN V1/V2] INDETERMINATE AXIS LATERAL MYOCARDIAL INFARCTION , OF INDETERMINATE AGE [40+ ms Q WAVE AND/OR ST/T ABNORMALITY IN I/aVL/V5/V6] Compared to ECG 07/12/2024 09:54:45 Indeterminate axis now present Left anterior fascicular block no longer present Myocardial infarct finding still present /store/S0/[id number].pdf
--- NOTE | 2024-07-23 11:45 | PD.EDRME ---
Rapid Medical Screening Exam RME Arrival date/time: 07/23/24 10:59 64-year-old male presents to the emergency department with complaints of abdominal pain. History of homelessness, HFrEF hepatitis C. I have greeted and performed a focused initial assessment of this patient. Initial appropriate labs ordered at this time. A comprehensive ED assessment and evaluation of the patient and analysis of all test and completion of medical decision making process will be conducted by additional ED provider. Chief Complaint: Abdominal Pain Time Seen by Provider: 07/23/24 11:29 Vital signs: Vital Signs Pulse Rate 89 07/23/24 11:26 Respiratory Rate 18 07/23/24 11:26 Blood Pressure 129/89 H 07/23/24 11:26 Pulse Oximetry (%) 95 07/23/24 11:26 Oxygen Delivery Method Room Air 07/23/24 11:26
--- NOTE | 2024-07-23 12:00 | PD.EDADULT ---
ED General RME/HPI General Chief complaint: Abdominal Pain Stated complaint: ABDOMINAL PAIN Time Seen by Provider: 07/23/24 11:29 Arrival date/time: 07/23/24 10:59 RME / HPI RME / HPI narrative: 64 year old male with history of congestive heart failure (EF 20 -25%, dilated cardiomyopathy, hypertension, hyperlipidemia, chronic left foot osteomyelitis, hepatitis C, cholelithiasis, substance use (methamphetamine), recent brachial vein DVT and homelessness, recent discharge from the hospital 6 days ago was brought in by EMS for evaluation regarding altered mental status. On my initial evaluation patient was noted to be drowsy and less verbal than usual. Patient will wake up with verbal stimulation only. Patient is not taking his medications. Including Eliquis that was prescribed last discharge. Patient was given Narcan 2 mg IV and woke up right away Related Data Previous Rx's ?Medication ?Instructions ?Recorded apixaban 2.5 mg tablet (Eliquis) 5 mg (2 x 2.5 mg) PO BID #60 tabs 06/22/24 aspirin 81 mg tablet,delayed 81 mg PO QDAY 30 days #30 tabs 06/22/24 release (Ecotrin Low Strength) atorvastatin 40 mg tablet 40 mg PO HS 30 days #30 tabs 06/22/24 bumetanide 1 mg tablet 1 mg PO BID 30 days #60 tabs 06/22/24 ceftriaxone 2 gram solution for 2 g IV QDAY #40 ea 06/22/24 injection doxycycline hyclate 100 mg capsule 100 mg PO BID #80 caps 06/22/24 metoprolol succinate 25 mg 25 mg PO QDAY 30 days #30 tabs 06/22/24 tablet,extended release 24 hr sacubitril 24 mg-valsartan 26 mg 1 tab PO BID #30 tabs 06/22/24 tablet (Entresto) amiodarone 200 mg tablet 200 mg PO BID 30 days #60 tabs 07/14/24 potassium chloride 20 mEq oral 20 meq PO QDAY #30 ea 07/17/24 packet Allergies Allergy/AdvReac Type Severity Reaction Status Date / Time No Known Allergies Allergy Verified 06/11/24 12:46 Review of Systems Review of Systems Narrative Review of Systems: Review of system reviewed and within normal limits except mentioned in HPI ED Exam Narrative Physical exam: VITAL SIGNS: Reviewed. GENERAL APPEARANCE: Drowsy, does not follows commands, no acute distress, unkept and smiley HEAD AND FACE: Non-traumatic. ENT: PERRL, pink conjunctivitis, eyelid no trauma, Mucous membrane moist. NECK: Supple, nontender, no nuchal rigidity. CHEST: No tenderness, no crepitus, no paradoxical movement, no retractions. LUNGS: Clear, well ventilated, symmetric, no rales, no wheezing, no ronchi, no stridor, good breath sounds bilaterally. HEART: Regular rate, regular rhythm, no murmur, no gallops. ABDOMEN: Soft, positive bowel sounds, nondistended, no guarding, nontender, no rebound, no masses, RECTAL: Deferred. GENITAL: Deferred. NEUROLOGICAL: Gross motor function intact sensory function intact, Appropriate for age. MUSCULOSKELETAL: low back nontender, full range of motion. EXTREMITIES: Bilateral lower leg swelling nontender, full range of motion. SKIN: Color pink, dry, no rash, no lacerations, no abrasions, no contusions. LYMPHATICS: Deferred. Course Quality Measures none Orders Category Date Time Status EKG (ED ONLY) *Do not use* NOW Care 07/23/24 11:44 Completed EKG (ED Only) Stat Exams 07/23/24 11:44 Draft XR chest 2V Stat Exams 07/23/24 11:44 Completed B-Type Natriuretic Peptide Stat Lab 07/23/24 11:56 Completed Blood Culture (Lab) Stat Lab 07/23/24 12:30 Received CBC Stat Lab 07/23/24 11:56 Completed Comprehensive Metabolic Panel Stat Lab 07/23/24 11:56 Completed Drug Screen,Urine Stat Lab 07/23/24 11:45 Ordered Lipase Stat Lab 07/23/24 11:56 Completed Procalcitonin Stat Lab 07/23/24 11:56 Completed Prothrombin Time with INR Stat Lab 07/23/24 11:56 Completed Troponin I Stat Lab 07/23/24 11:56 Completed VBG [Venous Blood Gas] Stat Lab 07/23/24 11:56 Completed NALOXONE INJ (Syringe) [Narcan Inj (Syringe)] Med 07/23/24 12:08 Discontinued 2 mg IV X1 ONE Ondansetron Inj [Zofran Inj] Med 07/23/24 12:08 Discontinued 4 mg IV X1 ONE Sodium Chloride 0.9% 1000 ml [Ns] 1,000 ml Med 07/23/24 12:09 Discontinued IV 999 mls/hr Vital Signs Vital signs: Vital Signs Pulse Rate 89 07/23/24 11:26 Respiratory Rate 18 07/23/24 11:26 Blood Pressure 129/89 H 07/23/24 11:26 Pulse Oximetry (%) 95 07/23/24 11:26 Oxygen Delivery Method Room Air 07/23/24 11:26 MDM Patient data External records reviewed:: None Clinical information provided by:: patient Social determinants that could affect healthcare access:: housing Patient has the following chronic illnesses:: Congestive heart failure, chronic elevation of troponin, cardiomyopathy, polysubstance abuse, homelessness, How is presenting disease/condition affected by chronic disease/condition?: exacerbated by Evaluation data The following diagnostics were reviewed and interpreted by me:: lab results, radiology exam(s) and EKG tracing(s) Lab and/or radiology exams considered but not ordered:: None Interpretation Summary: See results in MDM Medications Medications considered but not ordered:: None Medication administrations:: Medication Administration History Discontinued Medications Sodium Chloride (Ns) 1,000 mls @ 999 mls/hr IV .Q1H1M ONE Stop: 07/23/24 13:09 Last Infusion: 07/23/24 13:30 Dose: Infused Documented By: Admin: 07/23/24 12:16 Dose: 999 mls/hr Documented By: BD Naloxone HCl (Naloxone Inj 1 Mg/Ml Syringe 2 Ml) 2 mg IV X1 ONE Stop: 07/23/24 12:09 Last Admin: 07/23/24 12:11 Dose: 2 mg Documented By: BD Ondansetron HCl (Ondansetron Inj 2 Mg/Ml Inj 2 Ml) 4 mg IV X1 ONE; Protocol Stop: 07/23/24 12:09 Last Admin: 07/23/24 12:42 Dose: 4 mg Documented By: BD Zofran and Narcan and IV fluids for hydration Consultations Consultation(s) initiated? (list below): No Diagnosis Differential Diagnosis ED Complaint MDM: Opiate overdose, dehydration, altered mental status Most likely diagnosis given after review of the tests above:: Opiate overdose Admission Indicated Admission indicated?: not indicated Explain why admission is indicated or not indicated:: Stable Admission Request Was there a request for admission?: No Disposition Plan Disposition Plan: Discharge Discharge Attestation Discharge Attestation: The patient was given an opportunity to ask questions and understood the discharge instructions. Discharge instructions specifically effects, indications for sooner follow up or return to the emergency department, and the expected course of current diagnosis. Patient condition: Stable Medical Decision Making MDM Narrative MDM Narrative: 64 year old male with history of congestive heart failure (EF 20 -25%, dilated cardiomyopathy, hypertension, hyperlipidemia, chronic left foot osteomyelitis, hepatitis C, cholelithiasis, substance use (methamphetamine), recent brachial vein DVT and homelessness, recent discharge from the hospital 6 days ago was brought in by EMS for evaluation regarding altered mental status. On my initial evaluation patient was noted to be drowsy and less verbal than usual. Patient will wake up with verbal stimulation only. Patient is not taking his medications. Including Eliquis that was prescribed last discharge. Patient was given Narcan 2 mg IV and woke up right away EKG showed sinus rhythm, ventricular rate of 68 bpm, no ST segment elevation depression noted. CBC showed leukocytosis of 11.7, BUN 38, creatinine of 2.0. Total bili was noted to be 1.5. Patient troponin was noted to be 0.332 BNP of 2044. Patient had chronic elevation of troponin. Currently patient is denying any chest pain. Chest x-ray showed Mild to moderate CHF Consider early pneumonia at the lung bases Prior to discharge patient was noted to be alert awake and talking and walking normal. Patient was satting 93% on room air prior to discharge. Differential Diagnosis Differential Diagnosis: Opiate overdose, dehydration, altered mental status Lab Data 07/23/24 11:56 07/23/24 11:56 Labs: Lab Results 07/23/24 Range/Units 11:56 WBC 11.7 H (3.8-10.6) Thou/mm3 RBC 3.98 L (4.50-5.90) Miln/mm3 Hgb 10.9 L (13.5-16.0) g/dL Hct 33.8 L (41.0-53.0) % MCV 85 (80-100) fL MCH 27.4 (25.0-35.0) pg MCHC 32.2 (31.0-37.0) g/dl RDW Std Deviation 59.7 H (35.1-43.9) fL Plt Count 328 (140-440) Thou/mm3 Neut % (Auto) 77 (37-80) % Lymph % (Auto) 10 (10-50) % [place] % (Auto) 12 (0-12) % Eos % (Auto) 0 (0-10) % Baso % (Auto) 1 (0-2.5) % Neut # (Auto) 9.0 H (1.8-7.7) Thou/mm3 Lymph # (Auto) 1.1 (1.0-4.8) Thou/mm3 [place] # (Auto) 1.4 H (0.0-0.8) Thou/mm3 Eos # (Auto) 0.1 (0.0-0.5) Thou/mm3 Baso # (Auto) 0.1 (0.0-0.2) Thou/mm3 Immature Gran # (Auto) 0.06 H (0.00-0.00) Thou/mm3 Absolute Nucleated RBC 0.00 (0.00-0.00) Thou/mm3 Immature Gran % 1 H (0-0) % Nucleated RBC % 0 (0) /100 WBC PT 12.3 H (9.0-12.2) Seconds INR 1.1 (0.9-1.3) VBG pH 7.36 (7.33-7.66) VBG pCO2 44 (36-56) mmHg VBG pO2 54 (15-58) mmHg VBG O2 Sat (Jeromy) 84 L (96-97) % VBG Base Excess -1 (-3-3) Sodium 138 (136-145) mMol/L Potassium 4.1 (3.4-5.1) mMol/L Chloride 103 (98-107) mMol/L Carbon Dioxide 23.7 (20.0-31.0) mMol/L Anion Gap 11 (7-16) BUN 38 H (9-23) mg/dL Creatinine 2.0 H D (0.6-1.3) mg/dL Estim Creat Clear Calc 38.7 L (>60) mL/min eGFR 37 L (60 - ) See Note BUN/Creatinine Ratio 19 (12-20) Ratio Glucose 84 (74-106) mg/dL Calculated Osmolality 283 (275-295) Calcium 8.5 (8.3-10.6) mg/dL Corrected Calcium 8.5 (8.5-10.1) mg/dL Total Bilirubin 1.5 H (0.3-1.2) mg/dL AST 71 H (0-34) U/L ALT 102 H (10-49) U/L Alkaline Phosphatase 132 H (46-116) U/L Troponin I 0.332 H* (0.0-0.045) ng/mL B-Natriuretic Peptide 2044 H* (0-100) pg/mL Total Protein 7.5 (5.7-8.2) gm/dL Albumin 4.0 (3.4-4.8) gm/dL Globulin 3.5 (2.3-3.5) gm/dL Albumin/Globulin Ratio 1.1 L (1.2-2.2) Lipase 384 H D (12-53) U/L Procalcitonin 0.31 (0.0-0.49) ng/ml Discharge Plan Plan Patient Disposition: HOME (Self Care) Disposition Comment: Stable Prescriptions/Referrals Prescriptions/Med Rec: No Action Eliquis 2.5 mg Tablet 5 mg PO BID Qty: 60 3RF atorvastatin 40 mg tablet 40 mg PO HS 30 Days Qty: 30 3RF bumetanide 1 mg tablet 1 mg PO BID 30 Days Qty: 60 3RF ceftriaxone 2 gram recon soln 2 g IV QDAY Qty: 40 0RF doxycycline hyclate 100 mg capsule 100 mg PO BID Qty: 80 0RF aspirin [Ecotrin Low Strength] 81 mg Tablet,Delayed Release (Dr/Ec) 81 mg PO QDAY 30 Days Qty: 30 3RF metoprolol succinate 25 mg Tablet Extended Release 24 Hr 25 mg PO QDAY 30 Days Qty: 30 3RF sacubitril-valsartan [Entresto] 24-26 mg Tablet 1 tab PO BID Qty: 30 3RF amiodarone 200 mg Tablet 200 mg PO BID 30 Days Qty: 60 2RF potassium chloride 20 mEq packet 20 meq PO QDAY Qty: 30 0RF Referrals: No Primary/Family,Physician [Primary Care Provider] - In 1 week Problem List Clinical Impression: Opioid overdose Patient/Caregiver Discharge Instructions Discharge Activity: activity as tolerated Education Materials: ED Overdose, Opiate Additional Instructions: Thank you for the opportunity for serving you today. You are stable for discharged . You are advised to: Follow-up with your PCP in 1 to 2 days Return to ED for worsening of symptoms Please stop abusing methadone Print Language: Hungarian Stand Alone Forms: Vera Award Info., Patient Portal Info Letter PA/OCCUPATIONAL THERAPY ASSISTANT Supervising Physician PA/OCCUPATIONAL THERAPY ASSISTANT Supervising Physician: Md Michael
[2024-07-23 12:03] LABS: Base Excess, Venous -1 (-3-3); O2 Saturation, Venous 84 % (96-97); PCO2, Venous 44 mmHg (36-56); PO2, Venous 54 mmHg (15-58); pH, Venous 7.36 (7.33-7.66)
[2024-07-23 12:05] LABS: Basophils # (Auto) 0.1 Thou/mm3 (0.0-0.2); Basophils % (Auto) 1 % (0-2.5); Eosinophils # (Auto) 0.1 Thou/mm3 (0.0-0.5); Eosinophils % (Auto) 0 % (0-10); Hematocrit 33.8 % (41.0-53.0); Hemoglobin 10.9 g/dL (13.5-16.0); Immature Granulocytes % (Auto) 1 % (0-0); Immature Granulocytes Auto 0.06 Thou/mm3 (0.00-0.00); Lymphocytes # (Auto) 1.1 Thou/mm3 (1.0-4.8); Lymphocytes % (Auto) 10 % (10-50); Mean Corpuscular HGB Conc 32.2 g/dl (31.0-37.0); Mean Corpuscular Hemoglobin 27.4 pg (25.0-35.0); Mean Corpuscular Volume 85 fL (80-100); Monocytes # (Auto) 1.4 Thou/mm3 (0.0-0.8); Monocytes % (Auto) 12 % (0-12); Neutrophils % (Auto) 77 % (37-80); Nucleated Red Blood Cell % 0 /100 WBC (0); Platelet Count 328 Thou/mm3 (140-440); RDW Standard Deviation 59.7 fL (35.1-43.9); Red Blood Count 3.98 Miln/mm3 (4.50-5.90); White Blood Count 11.7 Thou/mm3 (3.8-10.6)
--- NOTE | 2024-07-23 12:05 | PC.NURSE ---
pt to room at 1204 and very lethargic and unable to answer questions. 2 person assist to [facility] [place] [facility]. Put on pulse ox and o2 in the 70's room air and increases when pt stimulated. Placed on o2 and will monitor
[2024-07-23] MEDS: NALOXONE INJ 1 MG/ML SYRINGE 2 ML 2 MG IV (12:11)
--- NOTE | 2024-07-23 12:14 | PC.NURSE ---
PT EXTREMELY LETHARGIC ADMIN NARCAN AND WAS ALERT 1 MIN AFTER NARCAN ABLE TO SPEAK WITH CRM BUSINESS ANALYST CHRISTIAN JASSO
[2024-07-23] MEDS: SODIUM CHLORIDE 0.9% 1000 ML 1,000 ML 999 ML IV (12:16)
--- NOTE | 2024-07-23 12:23 | PC.NURSE ---
PT STATING HE REMEMBERS WHAT HAPPEN HE SAID HE WAS WALKING FROM HOME AND HE TOOK SOMEONE METHADONE 20MG
[2024-07-23 12:24] LABS: INR 1.1 (0.9-1.3); Prothrombin Time 12.3 Seconds (9.0-12.2)
[2024-07-23 12:29] LABS: B-Type Natriuretic Peptide 2044 pg/mL (0-100)
[2024-07-23] MEDS: ONDANSETRON INJ 2 MG/ML INJ 2 ML 4 MG IV (12:42)
[2024-07-23 12:44] LABS: Alanine Aminotransferase 102 U/L (10-49); Albumin/Globulin Ratio 1.1 (1.2-2.2); Alkaline Phosphatase 132 U/L (46-116); Anion Gap 11 (7-16); Aspartate Amino Transferase 71 U/L (0-34); BUN/Creatinine Ratio 19 Ratio (12-20); Bilirubin,Total 1.5 mg/dL (0.3-1.2); Blood Urea Nitrogen 38 mg/dL (9-23); Calcium 8.5 mg/dL (8.3-10.6); Calcium (Corrected) 8.5 mg/dL (8.5-10.1); Carbon Dioxide 23.7 mMol/L (20.0-31.0); Chloride 103 mMol/L (98-107); Estimated Creatinine Clearance 38.7 mL/min (>60); Globulin 3.5 gm/dL (2.3-3.5); Glucose 84 mg/dL (74-106); Lipase 384 U/L (12-53); Osmolality,Calculated 283 (275-295); Potassium 4.1 mMol/L (3.4-5.1); Procalcitonin 0.31 ng/ml (0.0-0.49); Sodium 138 mMol/L (136-145); Total Protein 7.5 gm/dL (5.7-8.2); eGFR 37 See Note
[2024-07-23 12:48] LABS: Troponin I 0.332 ng/mL (0.0-0.045)
--- NOTE | 2024-07-23 18:39 | PC.NURSE ---
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
== END 2024-07-23 18:33 | disposition home or self-care (01) ==
PROVIDERS: Nurse Practitioner Family; Nurse Practitioner Primary Care; Emergency Provider Emergency Medicine
DX: T40.2X1A Poisoning by other opioids, accidental (unintentional), initial encounter (principal); R41.82 Altered mental status, unspecified; I42.0 Dilated cardiomyopathy; I11.0 Hypertensive heart disease with heart failure; I50.9 Heart failure, unspecified; E78.5 Hyperlipidemia, unspecified; F15.10 Other stimulant abuse, uncomplicated; Z59.00 Homelessness unspecified; Z86.718 Personal history of other venous thrombosis and embolism
CPT/HCPCS: 36415; 71046; 80053; 80307; 82803; 83690; 83880; 84145; 84484; 85025; 85610; 87040; 93005; 96360; 99284; J2310; J2405; J7030